=== PATIENT | female | born 1950 | race Caucasian/White ===

== ENCOUNTER 2019-08-20 09:48 | Inpatient (IN) | payer MEDICARE, MEDICAID, SELFPAY ==
[2019-08-20] VITALS (27 sets, daily range): BP systolic 94–167; BP diastolic 56–88; PULSE 90–125; RESP 15–25; TEMP 36.4–36.9; O2SAT 4–98; BMI 16.0
--- NOTE | 2019-08-20 09:50 | ED_ITS ---
Entered by Linn Chapin, acting as scribe for HPI - Chest Pain General: Chief Complaint: Chest Pain Stated Complaint: CHEST PAIN Time Seen by Provider: 08/20/19 09:51 Source: patient and EMS Mode of arrival: EMS History of Present Illness: HPI narrative: 69 yo female presents with shortness of breath and chest discomfort. pt has had a cough. pt states this started yesterday. pt states this started at rest. pt has a history of COPD and palpatations. pt denies any other symptoms at this time. Pertinent past history: other (copd) Onset (ago): day(s) (yesterday) Timing of current episode: constant Prior episodes: Yes Onset: during rest Severity: moderate Quality: tightness and sharp Relieving factors: nothing Exacerbating factors: other (cough) Associated symptoms: Reports dyspnea and other (shortness of breath); Deny abdominal pain, fever(s), nausea or vomiting Treatment prior to arrival: oxygen (EMS) Review of Systems Const: Denies: fever or chills Eyes: Denies: change in vision ENMT: Denies: throat pain or mouth pain Card: Reports: chest pain Resp: Reports: shortness of breath GI: Denies: abdominal pain, nausea, vomiting or diarrhea : Denies: difficulty urinating Musc: Denies: back pain or joint pain Skin/Breast: Denies: rash Neuro: Denies: headache or behavioral changes Psych: Denies: depression Endo: Denies: excessive urination Ronen/Lymph: Denies: easy bruising All/Imm: Denies: hives PFSH ED PFSH: Statuses (acute, chronic, etc) shown below reflect problem list status as previously entered and may not be historically accurate Medical History Acute on chronic respiratory failure with hypoxia and hypercapnia (Acute) COPD (chronic obstructive pulmonary disease) (Acute) Pseudomonas aeruginosa colonization (Acute) Pulmonary hypertension (Acute) Severe protein-calorie malnutrition (Acute) Surgical History History of back surgery (Acute) Family History Mother CAD (coronary artery disease) Social History Smoking and tobacco status: former smoker Alcohol intake: current Alcohol intake frequency: holidays/special occasions only Substance/Drug Use: never Physical Exam Const: COMMON NORMALS: no apparent distress and healthy appearing HENMT: COMMON NORMALS: normocephalic and external nose normal HEAD & SCALP: normocephalic NOSE: external nose normal and no nasal discharge (nasal dischage) Eye: COMMON NORMALS: PERRL PUPIL: Yes PERRL Neck/C-Spine: COMMON NORMALS: full ROM and no lymphadenopathy Chest: COMMONS NORMALS: inspection of chest normal Resp: COMMON NORMALS: normal respiratory effort OTHER: rales and wheezes noted Cardio: RATE: tachycardic RHYTHM: abnormal rhythm GI: COMMON NORMALS: soft to palpation PALPATION: Yes soft Extremity: COMMON NORMALS: normal to inspection, full ROM and normal capillary refill Psych: COMMON NORMALS: mental status grossly normal and cooperative Skin: COMMON NORMALS: no rashes or lesions noted GENERAL SKIN EXAM: no rashes or lesions noted Course Vital Signs: Vital signs: Vital Signs Temperature 97.9 F 08/20/19 09:53 Pulse Rate 100 08/20/19 11:47 Respiratory Rate 15 08/20/19 11:47 Blood Pressure 119/69 08/20/19 11:47 Pulse Oximetry 98 08/20/19 11:47 MDM - Chest Pain MDM Narrative: Medical decision making narrative: Patient presents here with shortness of breath and was found to have a left-sided pneumonia. Patient is requiring 4 L of oxygen here and is typically on 2. I spoke to hospitalist who is seen patient will admit. Patient started on azithromycin and Rocephin. Lab Data: Labs: Lab Results 08/20/19 08/20/19 08/20/19 Range/Units 09:37 09:37 09:37 WBC 16.1 H (4.0-10.0) 10^3/ uL RBC 4.10 (4.1-5.3) 10^6/u L Hgb 11.0 L (11.5-15.3) g/dL Hct 35.8 L (37.0-47.0) % MCV 87.3 (81-99) fL MCH 26.8 L (28.0-34.0) pg MCHC 30.7 (30.0-36.0) g/dL RDW 15.1 (12.1-15.1) % Plt Count 402 H (130-400) 10^3/c mm MPV 9.7 (7.4-10.4) fL Neut % (Auto) 78.6 % Lymph % (Auto) 8.8 % Delta % (Auto) 10.9 % Eos % (Auto) 0.9 % Baso % (Auto) 0.3 % Neut # (Auto) 12.7 H (1.8-7.7) 10^3/u L Lymph # (Auto) 1.4 (0.8-4.8) 10^3/u L Delta # (Auto) 1.8 H (0.2-0.9) 10^3/u L Eos # (Auto) 0.1 (0.0-0.8) 10^3/u L Baso # (Auto) 0.1 (0.0-0.1) 10^3/u L Nucleated RBC % (a uto) 0 % Nucleated RBCs # 0.0 /100WBC Sodium 138 (136-145) mmol/L Potassium 5.0 (3.5-5.1) mmol/L Chloride 99 (98-107) mmol/L Carbon Dioxide 27 (22-29) mmol/L Anion Gap 17.0 (5-19) BUN 16 (8-23) mg/dL Creatinine 0.3 L (0.5-0.9) mg/dL GFR Calculation 221.2 H (90-130) mL/min Glucose 118 H (74-106) mg/dL Calcium 10.2 (8.8-10.2) mg/Dl Total Bilirubin 0.3 (0.15-1.2) mg/dL AST 14 (0-32) U/L ALT 6 (0-33) U/L Alkaline Phosphata se 106 H (35-105) IU/L Troponin T Baselin e 32 H (0-10) ng/mL NT-Pro-B Natriuret Pep 253 H (0-125) pg/mL Total Protein 7.1 (6.6-8.7) g/dL Albumin 3.8 (3.5-5.2) g/dL Globulin 3.3 (1.3-4.6) g/dL EKG Data^: EKG 1: Attestation: I personally reviewed and interpreted this EKG as follows: EKG interpretation date: 08/20/19 EKG interpretation time: 10:56 Interpretation: A. fib with RVR heart rate [address] or T wave abnormalities QRS 84 QTC 354 Discharge Plan Discharge Patient Disposition: Admitted As Inpatient Admit Provider: Herbie Cifuentes Clinical Impression: Community acquired pneumonia Qualifiers: Laterality: left Lung location: unspecified part of lung Qualified Code(s): J18.9 - Pneumonia, unspecified organism Condition: Stable Referrals: Kahlil Joseph MD [Primary Care Provider] - Coding Level of Care Code ED Human Resources Specialist for Chg Fwd Exam Problem Focused The documentation recorded by the Tavares grimes Bridget Annette, accurately reflects the service I personally performed and the decisions made by me, Faiza Smallwood MD Aug 20, 2019 09:48
--- NOTE | 2019-08-20 09:53 | XRR_ITS ---
PROCEDURE INFORMATION: Exam: XR Chest, 1 View Exam date and time: 08/20/2019 9:54 AM Age: 69 years old Clinical indication: Cough; Additional info: Cough, ex-smoker TECHNIQUE: Imaging protocol: XR of the chest Views: 1 view. COMPARISON: CR Chest 1 [place] [id number] 06/28/2019 5:41 PM FINDINGS: Lungs: Interval appearance of moderate to severe left lung pneumonia superimposed on background left upper lung field scarring. Stable right upper and lower lung field scarring. Stable severe COPD . Pleural space: Unremarkable. No pleural effusion. No pneumothorax. Heart/Mediastinum: Unremarkable. No cardiomegaly. Vasculature: Calcification of the thoracic aorta and/or great vessels consistent with atherosclerotic vessel disease. Bones/joints: Stable multiple vertebroplasties in the thoracolumbar spine. XR/XR chest 1V portable [id number] IMPRESSION: Interval appearance of moderate to severe left lung pneumonia superimposed on background left upper lung field scarring.
--- NOTE | 2019-08-20 09:54 | ECG_ITS ---
Measurements Intervals [place] Rate: 105 P: 61 MD: 141 QRS: 78 QRSD: 101 T: 63 QT: 333 QTc: 441 SINUS TACHYCARDIA Compared to ECG 08/20/2019 11:47:58 Sinus rhythm no longer present Electronically Signed On 08-21-2019 5:55:52 RENTAL SALESPERSON by Varsha Hensley M.D. [id number]
[2019-08-20] MEDS: sodium chloride 0.9% 1,000 ML 999 ML IV (10:01)
[2019-08-20 10:17] LABS: Basophils # 0.1 10^3/uL (0.0-0.1); Basophils % 0.3 %; Eosinophils # 0.1 10^3/uL (0.0-0.8); Eosinophils % 0.9 %; Hematocrit 35.8 % (37.0-47.0); Lymphocytes # 1.4 10^3/uL (0.8-4.8); Lymphocytes % 8.8 %; Mean Corpuscular HGB Conc 30.7 g/dL (30.0-36.0); Mean Corpuscular Hemoglobin 26.8 pg (28.0-34.0); Mean Corpuscular Volume 87.3 fL (81-99); Mean Platelet Volume 9.7 fL (7.4-10.4); Monocytes # 1.8 10^3/uL (0.2-0.9); Monocytes % 10.9 %; Neutrophils # 12.7 10^3/uL (1.8-7.7); Neutrophils % 78.6 %; Nucleated Red Blood Cells % 0 %; Platelet Count 402 10^3/cmm (130-400); Red Cell Distribution Width 15.1 % (12.1-15.1); White Blood Count 16.1 10^3/uL (4.0-10.0)
--- NOTE | 2019-08-20 10:34 | PC.NURSE ---
Patient up to restroom with picking tech for urine collection.
[2019-08-20 10:42] LABS: Troponin(5th) Baseline 32 ng/mL (0-10)
--- NOTE | 2019-08-20 10:46 | PC.NURSE ---
Lab at bedside to collect blood culture. Will start antibiotic following collection.
[2019-08-20 10:51] LABS: Alanine Aminotransferase 6 U/L (0-33); Albumin Level 3.8 g/dL (3.5-5.2); Alkaline Phosphatase 106 IU/L (35-105); Blood Urea Nitrogen 16 mg/dL (8-23); Calcium 10.2 mg/Dl (8.8-10.2); Carbon Dioxide 27 mmol/L (22-29); Chloride 99 mmol/L (98-107); Globulin 3.3 g/dL (1.3-4.6); Glomerular Filtration Rate 221.2 mL/min (90-130); Glucose 118 mg/dL (74-106); NT Pro B Type Natriuretic Pept 253 pg/mL (0-125); Sodium 138 mmol/L (136-145); Total Bilirubin 0.3 mg/dL (0.15-1.2); Total Protein 7.1 g/dL (6.6-8.7)
[2019-08-20 11:02] LABS: Aspartate Amino Transferase 14 U/L (0-32)
[2019-08-20] MEDS: cefTRIAXone 1,000 MG in sodium chloride 0.9% (plus) 50 ML 100 MG IV (11:05)
[2019-08-20] MEDS: metoprolol tartrate 1 mg/1 mL SDV 5 mL 5 MG IV (11:32)
[2019-08-20] MEDS: azithromycin 500 MG in sodium chloride 0.9% 250 ML 250 MG IV (11:33)
--- NOTE | 2019-08-20 11:53 | P.HP_ITS ---
Providers/Chief Complaint Primary Care Provider: Say Joseph Chief Complaint: CHEST PAIN History of Present Illness Marie Hull is a 69 year old female with a past medical history of severe COPD with history of bullous emphysema 2 L oxygen dependent, on home trilogy machine who presents to the emergency room due to complaints of short worsening shortness of breath, productive cough, chest pain since . Patient stat es at baseline she is short of breath less than 100 feet, has severe COPD, uses trilogy machine overnight, 2 L oxygen dependent, has had multiple hospitalizations in the past year for COPD exacerbations. Previous sputum cultures have grown Pseudomonas, with intermediate sensitivity to Levaquin. Patient states that on night she developed shortness of breath at rest with exertion, productive cough, yellow-green sputum, chest palpitations and chest pain, her heart rate was in the high 150s. Patient states that she developed left-sided chest pain, like something sitting on her chest, radiating to the left breast, stated that it lasted a few minutes, no lightheadedness, no dizziness, no nausea, no vomiting, pleuritic in nature. Throughout the weekend she continued to have multiple episodes, yesterday she had chest pain throughout the day, did not lissa, worsening with deep breaths. Patient denies a history of CAD, denies a history of stents, denies history of heart failure, denies any history of atrial fibrillation. Denies sick contacts. Denies any recent travel. Does report some URI symptoms for the last few days. In the emergency room patient was found to have a leukocytosis of 16,000, neutrophilia, saturating high 90s on 4 L oxygen, heart rates 120s, atrial fibrillation. She received Rocephin, azithromycin, Solu-Medrol. Review of Systems Const: Reports: chills; Denies: fever, change in appetite, change in weight, fatigue or malaise ENMT: Denies: painful swallowing, ear discharge or nasal discharge Card: Reports: chest pain, palpitations, irregular heart rhythm, shortness of breath on exertion and shortness of breath when lying down; Denies: edema, lightheadedness, syncope or pre-syncope Resp: Reports: shortness of breath, productive cough and chest congestion; Denies: coughing up blood GI: Denies: abdominal pain, nausea or vomiting : Denies: flank pain, difficulty urinating, painful urination, urinary frequency, urinary urgency or urinary hesitancy Musc: Denies: neck pain, back pain or extremity swelling Skin/Breast: Denies: rash Neuro: Denies: headache or weakness in extremities Endo: Denies: excessive urination, excessive thirst or excessive sweating Ronen/Lymph: Denies: easy bruising Medications/Allergies Home Medications Medication Instructions Recorded Confirmed Last Taken Type albuterol sulfate [Ventolin HFA] 1 puff INHALATION TID PRN 08/20/19 08/20/19 Unknown History aspirin 81 mg PO DAILY 08/20/19 08/20/19 08/20/19 History celecoxib 200 mg PO BID 08/20/19 08/20/19 08/20/19 History fluticasone propion-salmeterol 1 inh INHALATION BID 08/20/19 08/20/19 08/20/19 History [Advair Diskus] fluticasone propionate 2 spray INTRANASAL DAILY 08/20/19 08/20/19 08/20/19 History levocetirizine 5 mg PO DAILY 08/20/19 08/20/19 08/20/19 History tiotropium bromide [Spiriva with 1 cap INHALATION DAILY 08/20/19 08/20/19 08/20/19 History HandiHaler] Allergies Allergy/AdvReac Type Severity Reaction Status Date / Time levofloxacin [From Levaquin] Allergy Unknown Verified 08/20/19 10:00 PFSH Acute PFSH: Statuses (acute, chronic, etc) shown below reflect problem list status as previously entered and may not be historically accurate Medical History (Updated 08/20/19 @ 12:11 by Herbie Cifuentes MD) Acute on chronic respiratory failure with hypoxia and hypercapnia (Acute) COPD (chronic obstructive pulmonary disease) (Acute) Pseudomonas aeruginosa colonization (Acute) Pulmonary hypertension (Acute) Severe protein-calorie malnutrition (Acute) Surgical History (Updated 08/20/19 @ 12:02 by Herbie Cifuentes MD) History of back surgery (Acute) Family History (Updated 08/20/19 @ 12:02 by Herbie Cifuentes MD) Mother CAD (coronary artery disease) Social History (Updated 08/20/19 @ 12:02 by Herbie Cifuentes MD) Smoking and tobacco status: former smoker Alcohol intake: current Alcohol intake frequency: holidays/special occasions only Substance/Drug Use: never Vitals/I&O/Wt Last Vital Signs Temp 97.9 F 08/20/19 09:53 Pulse 100 08/20/19 11:47 Resp 15 08/20/19 11:47 BP 119/69 08/20/19 11:47 Pulse Ox 98 08/20/19 11:47 08/19/19 08/20/19 08/20/19 22:59 06:59 14:59 Intake Total 1000 / 1000 Balance 1000 / 1000 Weight last 48 hrs Weight 39.916 kg Physical Exam Const: COMMON NORMALS: no apparent distress GENERAL APPEARANCE: cooperative, comfortable, well kempt and well developed NUTRITIONAL APPEARANCE: cachectic HENMT: COMMON NORMALS: normocephalic Eye: COMMON NORMALS: PERRL, EOMs intact bilaterally and no scleral icterus Neck/C-Spine: COMMON NORMALS: full ROM, no lymphadenopathy, supple and no JVD Lymph: LYMPHATIC: no lymphadenopathy noted Chest: COMMONS NORMALS: inspection of chest normal Resp: COMMON NORMALS: normal respiratory effort EFFORT & INSPECTION: Yes able to speak in complete sentences, Yes tachypneic, Yes actively coughing and Yes uses accessory muscles AUSCULTATION: rales on the left in the mid lung marquis and in the upper lung marquis and rhonchi left upper Cardio: COMMON NORMALS: no JVD, S1 normal heart sound and S2 normal heart sound RATE: tachycardic RHYTHM: abnormal rhythm irregularly irregular GI: COMMON NORMALS: normal to inspection, nondistended, normoactive bowel sounds, soft to palpation, non-tender and no hepatosplenomegaly : COMMON NORMALS: Yes no CVA tenderness Back/Pelvis: COMMON NORMALS: thoracic and lumbar spine normal to inspection Extremity: COMMON NORMALS: normal capillary refill, no clubbing, cyanosis or edema and no pedal edema Neuro: COMMON NORMALS: oriented x3, CN's II-XII intact bilaterally, moves all extremities and no focal motor deficits Psych: COMMON NORMALS: mental status grossly normal and cooperative Skin: COMMON NORMALS: no rashes or lesions noted Data Micro: Micro: Microbiology 08/20/19 10:53 Blood Culture - Pr eliminary Blood SPECIMEN [facility] 08/20/19 10:47 Blood Culture - Pr eliminary Blood SPECIMEN [facility] Imaging^: CXR: Radiologist's impression: moderate to severe left lung pneumonia superimposed on background left upper lung field scarring. EKG^: EKG 1: I personally reviewed and interpreted this EKG as follows: My Interpretation: A. fib with RVR, heart rates in the 120s A&P Assessment and plan (1) Acute on chronic respiratory failure with hypoxia and hypercapnia: -Has risk factors for healthcare associated morning, has had multiple admissions in the last year for respiratory failure pneumonia -Neutrophilic leukocytosis on admission white blood cell count as high as 16,000, up to 4 L and oxygen, heart rate 120s, chest x-ray showing left upper and middle lobe pneumonia -On exam is a bit tachypneic, using a respiratory muscles -Likely secondary to left upper and middle lobe pneumonia, COPD exacerbation, A. fib with RVR Plan: -Broad-spectrum antibiotics vancomycin and Zosyn -Solu-Medrol 40 mg every 8 hours starting tomorrow -LR hydration -DuoNeb treatment -Patient was advised to bring her home trilogy, if not will use BiPAP overnight -Oxygen therapy protocol -Patient is okay with elective intubation if required Status: Acute Code(s): J96.21 - Acute and chronic respiratory failure with hypoxia; J96.22 - Acute and chronic respiratory failure with hypercapnia (2) Pseudomonas aeruginosa colonization: Status: Acute Code(s): Z22.39 - Carrier of other specified bacterial diseases (3) Severe chronic obstructive pulmonary disease: Status: Acute Code(s): J44.9 - Chronic obstructive pulmonary disease, unspecified (4) Healthcare-associated pneumonia: Status: Acute Code(s): J18.9 - Pneumonia, unspecified organism (5) New onset atrial fibrillation: -In the ER she was given 5 mg labetalol, heart rate came down to the low 100s, A. fib, did not convert Plan: -Continue serial EKGs, monitor troponins -Cardiac echocardiogram -Metoprolol 25 mg twice daily -Eliquis 5 mg twice daily Status: Acute Code(s): I48.91 - Unspecified atrial fibrillation (6) Pulmonary hypertension: Status: Acute Code(s): I27.20 - Pulmonary hypertension, unspecified (7) Severe protein-calorie malnutrition: Status: Acute Code(s): E43 - Unspecified severe protein-calorie malnutrition (8) NSTEMI (non-ST elevated myocardial infarction): -Likely type II, supply demand ischemia from respiratory failure -No acute ST-T wave changes seen on EKG Plan: -Aspirin, statin -Trend troponins -Continue telemetry monitoring -Serial EKGs -Cardiac echocardiogram -Nitro PRN Status: Acute Code(s): I21.4 - Non-ST elevation (NSTEMI) myocardial infarction Attestations Medical Necessity Statement*: Patient requires hospitalization, inpatient care, greater than 2 midnights for acute respiratory failure Coding Level of Care Code Acute Wood Heel Back Liner for Chg 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
--- NOTE | 2019-08-20 11:54 | ECG_ITS ---
Measurements Intervals [place] Rate: 99 P: 63 NC: 147 QRS: 81 QRSD: 88 T: 66 QT: 332 QTc: 428 SINUS RHYTHM WITH OCCASIONAL SUPRAVENTRICULAR PREMATURE COMPLEXES Compared to ECG 08/20/2019 09:54:34 Atrial fibrillation no longer present Electronically Signed On 08-20-2019 13:29:19 BUTTON BREAKER by Varsha Hensley M.D. [id number]
[2019-08-20 12:12] LABS: Troponin 5 2HR 27.43 ng/mL (0-10)
[2019-08-20 12:52] LABS: Troponin 5 2HR Delta -4.57 ABS# (0-10)
[2019-08-20] MEDS: atorvastatin 40 mg Tablet PO (15:10)
[2019-08-20 15:52] LABS: Troponin 5 6HR 21.78 ng/L (0-10)
--- NOTE | 2019-08-20 15:54 | ECG_ITS ---
Measurements Intervals [place] Rate: 126 P: MD: 0 QRS: 89 QRSD: 84 T: 65 QT: 280 QTc: 405 ATRIAL FIBRILLATION WITH RAPID VENTRICULAR RESPONSE ABNORMAL RHYTHM ECG Compared to ECG 06/28/2019 20:44:39 Sinus tachycardia no longer present Myocardial infarct finding no longer present Electronically Signed On 08-20-2019 11:20:31 BELT BRANDER by Varsha Hensley M.D. [id number]
[2019-08-20] MEDS: vancomycin 750 MG in sodium chloride 0.9% 250 ML 250 MG IV (16:09)
[2019-08-20] MEDS: lactated ringers 1,000 ML 75 ML IV (16:10)
[2019-08-20] MEDS: ipratropium-albuterol 3 mL Neb INHALATION ×3 (16:32→23:36)
[2019-08-20] MEDS: metoprolol tartrate 25 mg Tablet PO (17:47)
[2019-08-20] MEDS: apixaban 5 mg Tablet PO (17:48)
[2019-08-20] MEDS: piperacillin-tazobactam 2.25 GM in sodium chloride 0.9% (plus) 50 ML IV ×2 (18:28→22:45)
[2019-08-20 19:59] LABS: Troponin 5 6HR Delta -5.65 ng/L (0-12)
--- NOTE | 2019-08-20 20:46 | PC.NURSE ---
Dr. Craven notified of patient asking for Mucinex.
--- NOTE | 2019-08-20 21:26 | PC.NURSE ---
1300- FROM ER Received pt from Er. Dgtr in law at bedside. Oriented pt to staff. Physical and admission assessment taken. Pt on 3 L/min NC. VS wnl. Call light within reach.
[2019-08-20] MEDS: guaiFENesin 600 mg Tablet PO (22:04)
[2019-08-21] VITALS (17 sets, daily range): BP systolic 97–113; BP diastolic 53–61; PULSE 93–109; RESP 16–24; TEMP 36.4–37.1; O2SAT 90–97
[2019-08-21] MEDS: vancomycin 750 MG in sodium chloride 0.9% 250 ML 250 MG IV ×2 (03:03→13:53)
[2019-08-21] MEDS: ipratropium-albuterol 3 mL Neb INHALATION ×7 (03:10→23:46)
[2019-08-21 04:56] LABS: Basophils % 0.1 %; Hematocrit 30.2 % (37.0-47.0); Hemoglobin 9.1 g/dL (11.5-15.3); Lymphocytes # 0.7 10^3/uL (0.8-4.8); Lymphocytes % 7.8 %; Mean Corpuscular HGB Conc 30.1 g/dL (30.0-36.0); Mean Corpuscular Hemoglobin 26.5 pg (28.0-34.0); Mean Corpuscular Volume 87.8 fL (81-99); Mean Platelet Volume 9.5 fL (7.4-10.4); Monocytes # 0.3 10^3/uL (0.2-0.9); Monocytes % 3.4 %; Neutrophils # 7.9 10^3/uL (1.8-7.7); Neutrophils % 88.3 %; Nucleated Red Blood Cells % 0 %; Platelet Count 386 10^3/cmm (130-400); Red Blood Count 3.44 10^6/uL (4.1-5.3); Red Cell Distribution Width 15.3 % (12.1-15.1); White Blood Count 8.9 10^3/uL (4.0-10.0)
[2019-08-21 05:27] LABS: Alanine Aminotransferase < 5 U/L (0-33); Alkaline Phosphatase 92 IU/L (35-105); Anion Gap 12.2 (5-19); Aspartate Amino Transferase 11 U/L (0-32); Blood Urea Nitrogen 16 mg/dL (8-23); Calcium 9.3 mg/Dl (8.8-10.2); Carbon Dioxide 29 mmol/L (22-29); Chloride 103 mmol/L (98-107); Chol HDL Ratio 4.46 mg/dL (0.0-4.40); Cholesterol 107 mg/dL (0-200); Globulin 3.8 g/dL (1.3-4.6); Glomerular Filtration Rate 158.7 mL/min (90-130); Glucose 160 mg/dL (74-106); HDL Cholesterol 24 mg/dL (60-100); LDL Cholesterol Calculated 72 mg/dL (50-129); Magnesium 2.4 mg/dL (1.7-2.3); Phosphorus 3.7 mg/dL (2.5-4.5); Potassium 4.2 mmol/L (3.5-5.1); Sodium 140 mmol/L (136-145); Thyroid Stimulating Hormone 0.26 uIU/mL (0.27-4.20); Total Bilirubin 0.2 mg/dL (0.15-1.2); Total Protein 6.8 g/dL (6.6-8.7); Triglycerides 55 mg/dL (0-150)
--- NOTE | 2019-08-21 06:00 | USCV_ITS ---
Kurtis Marie Age: 69 Gender: F : 1950 Exam Date: 08/21/2019 05:41 Ordering Phys: Herbie Cifuentes MD Technologist: Yuki Godinez Exam Location: [facility] Indication: CHEST PAIN BP: 90 / 57 HR: 97 Rhythm: Sinus Technical Quality: Adequate MEASUREMENTS (Male / Female) Normal Values 2D ECHO LV Diastolic Diameter PLAX 3.5 cm 4.2 - 5.9 / 3.9 - 5.3 cm LV Systolic Diameter PLAX 2.2 cm LV Chamber Size 3.1 cm IVS Diastolic Thickness 1.2 cm 0.6 - 1.0 / 0.6 - 0.9 cm IVS Systolic Thickness 1.2 cm LVPW Diastolic Thickness 1.0 cm 0.6 - 1.0 / 0.6 - 0.9 cm LVPW Systolic Thickness 0.9 cm RV Chamber Size 3.0 cm LVOT Diameter 2.0 cm LV Ejection Fraction 2D Teich 70.1 % LV Ejection Fraction MOD 2C 23.4 % LV Ejection Fraction 2C AL 22.9 % LA Diameter 2.2 cm LA Width 1.7 cm LA Height 2.6 cm RA Width 3.0 cm RA Height 2.5 cm Aorta at Sinotubular Diameter 3.2 cm M-MODE LV Diastolic Diameter MM 5.5 cm 4.2 - 5.9 / 3.9 - 5.3 cm LV Systolic Diameter MM 3.2 cm LV Ejection Fraction MM Teich 72.5 % IVS Diastolic Thickness MM 1.0 cm 0.6 - 1.0 / 0.6 - 0.9 cm IVS Systolic Thickness MM 1.8 cm LVPW Diastolic Thickness MM 1.0 cm 0.6 - 1.0 / 0.6 - 0.9 cm LVPW Systolic Thickness MM 1.4 cm RV Diastolic Diameter MM 0.8 cm Aortic Annulus Diameter 4.0 cm LA Ao Ratio MM 0.6 MV E Point Septal Separation 0.1 cm DOPPLER AV Peak Velocity 156.0 cm/s LVOT Peak Velocity 101.0 cm/s AV Area Cont Eq vti 2.4 cm squared AV Area Cont Eq pk 2.1 cm squared MV Area PHT 7.9 cm squared Mitral E to A Ratio 0.7 MV E' Velocity 11.0 cm/s Mitral E to MV E' Ratio 7.1 Mitral E to LV E' Lateral Ratio 8.0 Mitral E to LV E' Septal Ratio 6.4 TR Peak Velocity 292.1 cm/s TR Peak Gradient 34.1 mmHg TR Mean Velocity 221.9 cm/s TR Mean Gradient 21.5 mmHg TR Velocity Time Integral 96.2 cm TV Peak E Velocity 86.0 cm/s Right Atrial Pressure 3.0 mmHg Pulmonary Artery Systolic Pressu 37.1 mmHg PV Peak Velocity 54.0 cm/s RV Acceleration Time 0.1 s RV Ejection Time 0.3 s RV AcT/ET 0.5 FINDINGS Left Ventricle Normal left ventricular cavity size. Normal left ventricular systolic function. No regional wall motion abnormalities. Left ventricular ejection fraction is estimated at 65 %. Grade I/IV diastolic dysfunction (abnormal relaxation filling pattern), normal to mildly elevated filling pressures. Right Ventricle The right ventricle is normal in size and function. Right Atrium The right atrium is normal in size. Left Atrium The left atrium is normal in size. Mitral Valve Structurally normal mitral valve without significant stenosis or prolapse. There is no mitral regurgitation. Aortic Valve Aortic valve sclerosis. No aortic valve stenosis. No aortic valve regurgitation. Tricuspid Valve Structurally normal tricuspid valve without significant stenosis or regurgitation. Pulmonary artery systolic pressure is normal. Pulmonic Valve Structurally normal pulmonic valve without significant stenosis. There is no pulmonic regurgitation. Pericardium Normal pericardium without effusion. Aorta Normal ascending aorta dimension. CONCLUSIONS 1-Normal left ventricular cavity size. Normal left ventricular systolic function. No regional wall motion abnormalities. Left ventricular ejection fraction is estimated at 65 %. Grade I/IV diastolic dysfunction (abnormal relaxation filling pattern), normal to mildly elevated filling pressures. 2-Aortic valve sclerosis. No aortic valve stenosis. No aortic valve regurgitation. 3-There is no pericardial effusion. 4-Pulmonary artery systolic pressure is within normal limits. 5-Right atrial pressure is around 5 mm of mercury. 6-When compared to the prior echocardiogram dated 12/19/2014 there is no aortic valve stenosis now. Overall left ventricular ejection fraction stays normal. Guilherme Ibrahim MD (Electronically Signed) Final Date: 21 August 2019 12:59 S
[2019-08-21 07:14] LABS: Procalcitonin 0.11 ng/mL (0-0.8)
[2019-08-21] MEDS: piperacillin-tazobactam 2.25 GM in sodium chloride 0.9% (plus) 50 ML IV ×3 (07:58→23:08)
[2019-08-21] MEDS: guaiFENesin 600 mg Tablet PO ×2 (09:52→18:41)
[2019-08-21] MEDS: atorvastatin 40 mg Tablet PO (09:53)
[2019-08-21] MEDS: apixaban 5 mg Tablet PO ×2 (09:54→18:41)
[2019-08-21] MEDS: aspirin 81 mg Chew Tablet PO (09:55)
[2019-08-21] MEDS: metoprolol tartrate 25 mg Tablet PO ×2 (10:02→18:41)
--- NOTE | 2019-08-21 10:27 | CT_ITS ---
WS: [id number] CT CHEST TECHNIQUE: Contrast enhanced CT of the chest with coronal and sagittal reformatted images. CLINICAL INFORMATION: sob COMPARISON: [id number] DLP: 285.[address] scans at [facility] use at least one of these dose optimization techniques: automat ed exposure control; mA and/or kV adjustment per patient size (includes targeted exams where dose is matched to clinical indication); or iterative reconstruction. FINDINGS: Advanced chronic emphysematous changes with bullous formation in the lung apices. Extensive pleural-p arenchymal scarring with more focal and progressed parenchymal and pleural fibrosis in the left upper lobe. Small amount of central cavitation in this area measuring 1.9 CM. Total area of parenchymal co nsolidation measures 4.5 x 3.3 cm progressed from previous. Some of this is due to chronic scarring b ut has progressed from previous. Recommend correlation for fungal pneumonia/aspergilloma considering the area of cavitation. Small left pleural effusion slightly progressed from previous with interstitial edema in the left low er lobe and lingula. Small right pleural effusion is stable. Stable pleural and parenchymal fibrosis in the right upper lobe. Aortic calcification. Coronary calcification. No mediastinal or hilar lymphadenopathy. Calcified righ t hilar nodes. Adrenal glands are normal. Small esophageal hiatal hernia. Mild thoracic kyphosis with vertebroplasty changes and chronic compression in the mid and lower thoracic spine unchanged. Chronic compression o f the T6 vertebral body unchanged. CT/CT chest w con* [id number] IMPRESSION: 1. Again seen is advanced centrilobular bullous emphysematous change. 2. Small pleural effusion has progressed compared to previous with interstitia l edema and compressive atelectasis left lower lobe. Correlation for left lower lobe pneumonia. 3. Progressed pleural and parenchymal fibrosis in the left upper lobe and ramona cent left hilum with a small amount of central cavitation in this area. Area of cavitation measures 1.9 CCM. Recommend correlation for aspergilloma/fungal pne umonia. 4. Small right pleural effusion is unchanged. 5. No other significant interval changes.
--- NOTE | 2019-08-21 12:38 | PC.RESP ---
Patient is actively attending Pulmonary Rehab under Phase 3 maintenance for life. Pt was given an Acapella and an Incentive Spirometer under Pulmonary Rehab and instructed in proper use to improve secretion mobilization and deep breathing.
[2019-08-21] MEDS: iohexol 300 mg/mL 100 mL Btl IV (13:36)
--- NOTE | 2019-08-21 14:32 | PC.PT ---
PT/OT report she is independent with transfers and gait short distances. Pt feels that she is at previous functional level. No physical therapy required at this time. Reviewed HEP. DCPT
[2019-08-21 14:56] LABS: Vancomycin Trough 7.7 ug/mL (10-15)
--- NOTE | 2019-08-21 15:54 | P.PN_ITS ---
Subjective Subjective: Interval history: This morning, patient is sitting up in bed, family at bedside, denies chest pain, palpitations, lightheadedness, dizziness, no nausea, no vomiting, continues to have productive cough Vitals/I&O/Wt Last Vital Signs Temp 98.7 F 08/21/19 12:00 Pulse 108 H 08/21/19 13:00 Resp 16 08/21/19 12:50 BP 108/58 08/21/19 12:00 Pulse Ox 96 08/21/19 12:50 08/21/19 08/21/19 08/21/19 06:59 14:59 22:59 Intake Total 600 / 2075 410 / 410 Output Total 800 / 800 Balance -200 / 1275 410 / 410 Weight last 48 hrs Weight 43.091 kg Weight 39.916 kg Physical Exam Const: COMMON NORMALS: no apparent distress and oriented x3 GENERAL APPEARANCE: cooperative, comfortable, well kempt and well developed NUTRITIONAL APPEARANCE: cachectic HENMT: COMMON NORMALS: normocephalic HEAD & SCALP: normocephalic Neck/C-Spine: COMMON NORMALS: no JVD Lymph: LYMPHATIC: no lymphadenopathy noted Chest: COMMONS NORMALS: inspection of chest normal Resp: COMMON NORMALS: normal respiratory effort EFFORT & INSPECTION: Yes able to speak in complete sentences, Yes tachypneic, Yes actively coughing and Yes uses accessory muscles AUSCULTATION: rales on the left in the mid lung marquis and in the upper lung marquis and rhonchi left upper Cardio: COMMON NORMALS: no JVD, S1 normal heart sound and S2 normal heart sound RATE: tachycardic RHYTHM: abnormal rhythm irregularly irregular HEART SOUNDS: S1 normal and S2 normal GI: COMMON NORMALS: normal to inspection, nondistended, normoactive bowel sounds, soft to palpation, non-tender and no hepatosplenomegaly PALPATION: Yes soft and Yes no hepatosplenomegaly Neuro: COMMON NORMALS: oriented x3 Psych: APPEARANCE: Yes well kempt Data Micro: Micro: Microbiology 08/20/19 10:53 Blood Culture - Pr eliminary Blood NEGATIVE TO WADE E 08/20/19 10:47 Blood Culture - Pr eliminary Blood NEGATIVE TO WADE E 08/19/19 13:00 Gram Stain - Final Sputum - Expector ated Sputum Sputum Culture - P reliminary A&P Assessment and plan (1) Acute on chronic respiratory failure with hypoxia and hypercapnia: -Has risk factors for healthcare associated morning, has had multiple admissions in the last year for respiratory failure pneumonia -Likely secondary to left upper and middle lobe pneumonia, COPD exacerbation, A. fib with RVR Plan: -Broad-spectrum antibiotics vancomycin and Zosyn for now, de-escalate based on MRSA nares -Solu-Medrol 40 mg every 8 hours -DuoNeb treatment -Patient was advised to bring her home trilogy, if not will use BiPAP overnight -Oxygen therapy protocol -Patient is okay with elective intubation if required Status: Acute Code(s): J96.21 - Acute and chronic respiratory failure with hypoxia; J96.22 - Acute and chronic respiratory failure with hypercapnia (2) Pseudomonas aeruginosa colonization: Status: Acute Code(s): Z22.39 - Carrier of other specified bacterial diseases (3) Severe chronic obstructive pulmonary disease: Status: Acute Code(s): J44.9 - Chronic obstructive pulmonary disease, unspecified (4) Healthcare-associated pneumonia: Status: Acute Code(s): J18.9 - Pneumonia, unspecified organism (5) New onset atrial fibrillation: -In the ER she was given 5 mg labetalol, heart rate came down to the low 100s, A. fib, did not convert Plan: -Continue serial EKGs, monitor troponins -Cardiac echocardiogram -Metoprolol 25 mg twice daily -Eliquis 5 mg twice daily Status: Acute Code(s): I48.91 - Unspecified atrial fibrillation (6) Pulmonary hypertension: Status: Acute Code(s): I27.20 - Pulmonary hypertension, unspecified (7) Severe protein-calorie malnutrition: Status: Acute Code(s): E43 - Unspecified severe protein-calorie malnutrition (8) NSTEMI (non-ST elevated myocardial infarction): -Likely type II, supply demand ischemia from respiratory failure -No acute ST-T wave changes seen on EKG Plan: -Aspirin, statin -Continue telemetry monitoring -Cardiac echocardiogram ejection fraction 65%, diastolic dysfunction -Nitro PRN Status: Acute Code(s): I21.4 - Non-ST elevation (NSTEMI) myocardial infarction Attestations Medical Necessity Statement*: Patient requires continued hospitalization, for pneumonia and respiratory failure Coding Level of Care Code Acute Repairer [employer] for g 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
[2019-08-22] VITALS (16 sets, daily range): BP systolic 114–128; BP diastolic 58–69; PULSE 89–100; RESP 16–26; TEMP 36.3–36.9; O2SAT 91–98
--- NOTE | 2019-08-22 01:39 | PC.PHAR ---
Vancomycin trough level before third dose of 750mg IVPB every 12 hours is 7.7. Dosage is increased to 1gm IVPB every 12 hours with another trough level to be obtained before the third dose at this level.
[2019-08-22 03:15] LABS: Hemoglobin 8.3 g/dL (11.5-15.3); Lymphocytes # 0.7 10^3/uL (0.8-4.8); Nucleated Red Blood Cells % 0 %
[2019-08-22 03:23] LABS: Hematocrit 27.9 % (37.0-47.0); Lymphocytes % 7.6 %; Mean Corpuscular HGB Conc 29.7 g/dL (30.0-36.0); Mean Corpuscular Hemoglobin 26.7 pg (28.0-34.0); Mean Corpuscular Volume 89.7 fL (81-99); Mean Platelet Volume 9.6 fL (7.4-10.4); Monocytes # 0.4 10^3/uL (0.2-0.9); Neutrophils # 7.6 10^3/uL (1.8-7.7); Neutrophils % 86.8 %; Platelet Count 407 10^3/cmm (130-400); Red Blood Count 3.11 10^6/uL (4.1-5.3); Red Cell Distribution Width 15.4 % (12.1-15.1); White Blood Count 8.8 10^3/uL (4.0-10.0)
[2019-08-22] MEDS: ipratropium-albuterol 3 mL Neb INHALATION ×5 (03:40→20:54)
[2019-08-22 03:44] LABS: Alanine Aminotransferase < 5 U/L (0-33); Albumin Level 2.8 g/dL (3.5-5.2); Alkaline Phosphatase 65 IU/L (35-105); Anion Gap 11.9 (5-19); Aspartate Amino Transferase 13 U/L (0-32); Blood Urea Nitrogen 16 mg/dL (8-23); Calcium 9.6 mg/Dl (8.8-10.2); Carbon Dioxide 30 mmol/L (22-29); Chloride 103 mmol/L (98-107); Glomerular Filtration Rate 158.7 mL/min (90-130); Glucose 173 mg/dL (74-106); Magnesium 2.2 mg/dL (1.7-2.3); Phosphorus 2.3 mg/dL (2.5-4.5); Potassium 4.9 mmol/L (3.5-5.1); Sodium 140 mmol/L (136-145); Total Bilirubin 0.2 mg/dL (0.15-1.2); Total Protein 5.8 g/dL (6.6-8.7)
[2019-08-22] MEDS: piperacillin-tazobactam 2.25 GM in sodium chloride 0.9% (plus) 50 ML IV ×3 (06:05→23:43)
[2019-08-22] MEDS: metoprolol tartrate 25 mg Tablet PO ×2 (09:10→17:27)
[2019-08-22] MEDS: guaiFENesin 600 mg Tablet PO ×2 (09:10→17:27)
[2019-08-22] MEDS: atorvastatin 40 mg Tablet PO (09:11)
[2019-08-22] MEDS: acetaminophen 325 mg Tablet 650 MG PO (10:00)
[2019-08-22 12:33] LABS: Hematocrit 28.8 % (37.0-47.0); Hemoglobin 8.7 g/dL (11.5-15.3)
--- NOTE | 2019-08-22 14:17 | P.PN_ITS ---
Subjective Subjective: Interval history: this morning patient is lying in bed, is doing well, her breathing has improved, denies chest pain, denies palpitations, denies bloody stools Today patient's hemoglobin is 8.7, it has decreased, given her drop in hemoglobin will hold aspirin and Eliquis, advised the risk and benefits, risk of stroke versus risk of GI bleed, patient voiced understanding, agrees to hold Review of patient's CT scan with patient showed possible Progressed pleural and parenchymal fibrosis in the left upper lobe and adjacent left hilum with a small amount of central cavitation in this area. Area of cavitation measures 1.9 CCM. Recommend correlation for aspergilloma/fungal pneumonia. I spoke to Dr. Negron about the imaging findings, he is really concerned for the possibility of pulmonary malignancy, given increased in size since imaging in May. I had a discussion with the patient about imaging results, currently is a very high risk for biopsy given her bullous emphysema, will have Dr. Negron discuss with her the options, follow-up with oncology as outpatient Vitals/I&O/Wt Last Vital Signs Temp 98.2 F 08/22/19 07:53 Pulse 94 08/22/19 13:04 Resp 16 08/22/19 12:58 BP 121/60 08/22/19 11:43 Pulse Ox 94 08/22/19 12:58 08/21/19 08/22/19 08/22/19 22:59 06:59 14:59 Intake Total 1020 / 1430 250 / 1680 530 / 530 Balance 1020 / 1430 250 / 1680 530 / 530 Weight last 48 hrs Weight 42.728 kg Weight 43.091 kg Physical Exam Const: COMMON NORMALS: no apparent distress and oriented x3 GENERAL APPEARANCE: cooperative, comfortable, well kempt and well developed NUTRITIONAL APPEARANCE: cachectic Neck/C-Spine: COMMON NORMALS: no JVD Resp: COMMON NORMALS: normal respiratory effort EFFORT & INSPECTION: Yes able to speak in complete sentences, Yes tachypneic, Yes actively coughing and Yes uses accessory muscles AUSCULTATION: rales on the left in the mid lung marquis and in the upper lung marquis and rhonchi left upper Cardio: COMMON NORMALS: no JVD, S1 normal heart sound and S2 normal heart sound RATE: tachycardic RHYTHM: abnormal rhythm irregularly irregular HEART SOUNDS: S1 normal and S2 normal GI: COMMON NORMALS: normal to inspection, nondistended, normoactive bowel sounds, soft to palpation, non-tender and no hepatosplenomegaly PALPATION: Yes soft and Yes no hepatosplenomegaly Extremity: COMMON NORMALS: normal capillary refill, no clubbing, cyanosis or edema and no pedal edema Neuro: COMMON NORMALS: oriented x3 Psych: APPEARANCE: Yes well kempt Data Micro: Micro: Microbiology 08/22/19 10:09 MRSA Culture - Fin al Nose 08/19/19 13:00 Gram Stain - Final Sputum - Expector ated Sputum Sputum Culture - F inal 08/22/19 06:05 Bacterial Antigens - Final Urine,Clean Catch 08/20/19 10:53 Blood Culture - Pr eliminary Blood NEGATIVE TO WADE E 08/20/19 10:47 Blood Culture - Pr eliminary Blood NEGATIVE TO WADE E A&P Assessment and plan (1) Acute on chronic respiratory failure with hypoxia and hypercapnia: -Has risk factors for healthcare associated morning, has had multiple admi ssions in the last year for respiratory failure pneumonia -Likely secondary to left upper and middle lobe pneumonia, COPD exacerbation, A. fib with RVR Plan: -Broad-spectrum antibiotics vancomycin and Zosyn for now, de-escalate based on MRSA nares -Solu-Medrol 40 mg every 12 hours -DuoNeb treatment -Continue home trilogy -Oxygen therapy protocol -Patient is okay with elective intubation if required -CT scans showing central cavitation in the left upper lobe, findings concerning for possible pulmonary malignancy, will have Dr. Negron to help me in the discussion with family Status: Acute Code(s): J96.21 - Acute and chronic respiratory failure with hypoxia; J96.22 - Acute and chronic respiratory failure with hypercapnia (2) Pseudomonas aeruginosa colonization: Status: Acute Code(s): Z22.39 - Carrier of other specified bacterial diseases (3) Severe chronic obstructive pulmonary disease: Status: Acute Code(s): J44.9 - Chronic obstructive pulmonary disease, unspecified (4) Healthcare-associated pneumonia: Status: Acute Code(s): J18.9 - Pneumonia, unspecified organism (5) New onset atrial fibrillation: -In the ER she was given 5 mg labetalol, heart rate came down to the low 100s, A. fib -Patient has converted to normal sinus rhythm Plan: -Cardiac echocardiogram, ejection fraction 65%, no wall motion abnormalities -Metoprolol 25 mg twice daily -Hold Eliquis 5 mg twice daily Status: Acute Code(s): I48.91 - Unspecified atrial fibrillation (6) Pulmonary hypertension: Status: Acute Code(s): I27.20 - Pulmonary hypertension, unspecified (7) Severe protein-calorie malnutrition: Status: Acute Code(s): E43 - Unspecified severe protein-calorie malnutrition (8) NSTEMI (non-ST elevated myocardial infarction): -Likely type II, supply demand ischemia from respiratory failure -No acute ST-T wave changes seen on EKG Plan: -Hold aspirin, statin -Continue telemetry monitoring -Cardiac echocardiogram ejection fraction 65%, diastolic dysfunction -Nitro PRN Status: Acute Code(s): I21.4 - Non-ST elevation (NSTEMI) myocardial infarction Attestations Medical Necessity Statement*: Patient requires hospitalization, for respiratory failure Coding Level of Care Code 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
[2019-08-22] MEDS: vancomycin 750 MG in sodium chloride 0.9% 250 ML 250 MG IV (15:55)
[2019-08-22 20:02] LABS: Hematocrit 28.7 % (37.0-47.0); Hemoglobin 8.6 g/dL (11.5-15.3)
[2019-08-23] VITALS (19 sets, daily range): BP systolic 122–141; BP diastolic 60–79; PULSE 80–112; RESP 18–23; TEMP 36.1–36.9; O2SAT 88–97
[2019-08-23] MEDS: ipratropium-albuterol 3 mL Neb INHALATION ×6 (00:59→20:27)
[2019-08-23 05:20] LABS: Hematocrit 28.9 % (37.0-47.0); Hemoglobin 8.6 g/dL (11.5-15.3); Lymphocytes # 0.6 10^3/uL (0.8-4.8); Lymphocytes % 10.5 %; Mean Corpuscular HGB Conc 29.8 g/dL (30.0-36.0); Mean Corpuscular Hemoglobin 27.1 pg (28.0-34.0); Mean Corpuscular Volume 91.2 fL (81-99); Mean Platelet Volume 9.3 fL (7.4-10.4); Monocytes # 0.4 10^3/uL (0.2-0.9); Monocytes % 6.8 %; Neutrophils % 81.9 %; Nucleated Red Blood Cells % 0 %; Platelet Count 438 10^3/cmm (130-400); Red Blood Count 3.17 10^6/uL (4.1-5.3); White Blood Count 6.1 10^3/uL (4.0-10.0)
[2019-08-23 05:43] LABS: Alanine Aminotransferase 6 U/L (0-33); Albumin Level 2.8 g/dL (3.5-5.2); Alkaline Phosphatase 64 IU/L (35-105); Anion Gap 10.5 (5-19); Aspartate Amino Transferase 14 U/L (0-32); Blood Urea Nitrogen 17 mg/dL (8-23); Calcium 9.6 mg/Dl (8.8-10.2); Carbon Dioxide 36 mmol/L (22-29); Chloride 100 mmol/L (98-107); Globulin 3.2 g/dL (1.3-4.6); Glomerular Filtration Rate 158.7 mL/min (90-130); Glucose 138 mg/dL (74-106); Magnesium 2.3 mg/dL (1.7-2.3); Phosphorus 2.5 mg/dL (2.5-4.5); Potassium 4.5 mmol/L (3.5-5.1); Sodium 142 mmol/L (136-145); Total Bilirubin 0.2 mg/dL (0.15-1.2)
[2019-08-23 06:07] LABS: Procalcitonin 0.07 ng/mL (0-0.8)
[2019-08-23] MEDS: piperacillin-tazobactam 2.25 GM in sodium chloride 0.9% (plus) 50 ML IV (06:26)
[2019-08-23] MEDS: atorvastatin 40 mg Tablet PO (08:27)
[2019-08-23] MEDS: doxycycline 100 mg Tablet PO ×2 (08:28→18:33)
[2019-08-23] MEDS: guaiFENesin 600 mg Tablet PO ×2 (08:28→18:33)
[2019-08-23] MEDS: metoprolol tartrate 25 mg Tablet PO ×2 (08:29→18:33)
[2019-08-23] MEDS: pantoprazole DR 40 mg Tablet PO ×2 (08:29→18:33)
[2019-08-23] MEDS: predniSONE 20 mg Tablet 40 MG PO (08:30)
--- NOTE | 2019-08-23 09:25 | PC.SOCIAL ---
IMM Page 2 of IMM explained to and signed by patient. She verbalizes understanding. Initialed, dated, and timed and placed back in chart. Copy provided to patient.
--- NOTE | 2019-08-23 13:09 | PM.PN ---
Subjective Subjective: Interval history: Patient states that she is doing well, overnight she did have an episode of sudden shortness of breath, but other than that, no fevers, no chills, no chest pain, no palpitations, no bloody stools, no black stools Vitals/I&O/Wt Last Vital Signs Temp 98 F 08/23/19 12:00 Pulse 90 08/23/19 12:00 Resp 20 H 08/23/19 12:00 BP 126/68 08/23/19 12:00 Pulse Ox 88 L 08/23/19 12:00 08/22/19 08/23/19 08/23/19 22:59 06:59 14:59 Intake Total 660 / 1190 250 / 1440 290 / 290 Balance 660 / 1190 250 / 1440 290 / 290 Weight last 48 hrs Weight 44.452 kg Weight 42.728 kg Physical Exam Const: COMMON NORMALS: no apparent distress and oriented x3 GENERAL APPEARANCE: cooperative, comfortable, well kempt and well developed NUTRITIONAL APPEARANCE: cachectic Neck/C-Spine: COMMON NORMALS: no JVD Resp: COMMON NORMALS: normal respiratory effort, no retractions, no use of accessory muscles, clear to auscultation bilaterally and percussion normal AUSCULTATION: clear to auscultation bilaterally PERCUSSION: percussion normal Cardio: COMMON NORMALS: no JVD, regular rate, regular rhythm, S1 normal heart sound and S2 normal heart sound RATE: regular rate RHYTHM: regular rhythm HEART SOUNDS: S1 normal and S2 normal GI: COMMON NORMALS: normal to inspection, nondistended, normoactive bowel sounds, soft to palpation, non-tender and no hepatosplenomegaly PALPATION: Yes soft and Yes no hepatosplenomegaly : COMMON NORMALS: Yes no CVA tenderness BLADDER/KIDNEY EXAM: Yes no CVA tenderness Back/Pelvis: COMMON NORMALS: no CVA tenderness Extremity: COMMON NORMALS: normal capillary refill, no clubbing, cyanosis or edema and no pedal edema Neuro: COMMON NORMALS: oriented x3 Psych: COMMON NORMALS: mental status grossly normal and cooperative APPEARANCE: Yes well kempt Data Micro: Micro: Microbiology 08/22/19 22:55 Occult Blood (FIT) - Final Stool 08/22/19 10:09 MRSA Culture - Fin al Nose 08/19/19 13:00 Gram Stain - Final Sputum - Expector ated Sputum Sputum Culture - F inal 08/22/19 06:05 Bacterial Antigens - Final Urine,Clean Catch A&P Assessment and plan (1) Acute on chronic respiratory failure with hypoxia and hypercapnia: -Has risk factors for healthcare associated morning, has had multiple admissions in the last year for respiratory failure pneumonia -Likely secondary to left upper and middle lobe pneumonia, COPD exacerbation, A. fib with RVR Plan: -De-escalate antibiotics to doxycycline -Prednisone 40 mg once daily -DuoNeb treatment -Continue home trilogy -Oxygen therapy protocol -Patient is okay with elective intubation if required -CT scans showing central cavitation in the left upper lobe, findings concerning for possible pulmonary malignancy, will have Dr. Negron to help me in the discussion with family Status: Acute Code(s): J96.21 - Acute and chronic respiratory failure with hypoxia; J96.22 - Acute and chronic respiratory failure with hypercapnia (2) Pseudomonas aeruginosa colonization: Status: Acute Code(s): Z22.39 - Carrier of other specified bacterial diseases (3) Severe chronic obstructive pulmonary disease: Status: Acute Code(s): J44.9 - Chronic obstructive pulmonary disease, unspecified (4) Healthcare-associated pneumonia: Status: Acute Code(s): J18.9 - Pneumonia, unspecified organism (5) New onset atrial fibrillation: -In the ER she was given 5 mg labetalol, heart rate came down to the low 100s, A. fib -Patient has converted to normal sinus rhythm -Hemoglobin stable at 8.6, no bloody stools, no black stools, no significant symptomatology, continue to hold anticoagulation, discussed possible low-dose aspirin tomorrow Plan: -Cardiac echocardiogram, ejection fraction 65%, no wall motion abnormalities -Metoprolol 25 mg twice daily -Hold Eliquis 5 mg twice daily Status: Acute Code(s): I48.91 - Unspecified atrial fibrillation (6) Pulmonary hypertension: Status: Acute Code(s): I27.20 - Pulmonary hypertension, unspecified (7) Severe protein-calorie malnutrition: Status: Acute Code(s): E43 - Unspecified severe protein-calorie malnutrition (8) NSTEMI (non-ST elevated myocardial infarction): -Likely type II, supply demand ischemia from respiratory failure -No acute ST-T wave changes seen on EKG Plan: -Hold aspirin, statin -Continue telemetry monitoring -Cardiac echocardiogram ejection fraction 65%, diastolic dysfunction -Nitro PRN Status: Acute Code(s): I21.4 - Non-ST elevation (NSTEMI) myocardial infarction Attestations Medical Necessity Statement*: Patient requires continued hospitalization, for acute respiratory failure secondary to COPD pneumonia Coding Level of Care Code Acute Aerospace Project Engineer for g 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
[2019-08-23 13:33] LABS: Hematocrit 30.8 % (37.0-47.0); Hemoglobin 9.1 g/dL (11.5-15.3)
[2019-08-23] MEDS: FUROsemide 10 mg/mL SDV 4mL 40 MG IVP (18:34)
[2019-08-23 18:52] LABS: Hemoglobin 9.4 g/dL (11.5-15.3)
--- NOTE | 2019-08-23 21:37 | P.CONIM_ITS ---
Providers/Reason For Consult Consulting Physican/Specialty*: Pulmonology Reason for Consult*: Severe COPD with left upper lobe lesion, concern for malignancy/aspergilloma Attending Physician: Herbie Cifuentes MD Primary Care Provider: Say Joseph History of Present Illness History of Present Illness Marie Hull is a 69 year old female who presented to the hospital with severe shortness of breath and was found to be an acute on chronic hypoxic and hypercapnic respiratory failure. The patient has advanced COPD, severe emphysema and is on trilogy at home. On admission to the hospital, the patient was treated for COPD exacerbation as well as pneumonia with broad-spectrum antibiotics. The patient had a CT chest with contrast done which revealed severe emphysema with bullous disease in the lung apices. The patient was also found to have a left upper lobe masslike le moses measuring 4.5 x 3.3 cm. This lesion appears to have gotten bigger compared to the previous CT scan. According to the radiology read there was a central area of cavitation however I am unsure if that area just represents an emphysematous focus. The patient was also found to have bilateral small pleural effusion. A pulmonary consultation was asked for to evaluate the patient for this lesion being an aspergilloma or any malignancy. I have seen and examined the patient today. Her daughter was present at bedside. The patient currently states that she is feeling much better. She denies any fever, night sweats or chills. She did have an episode of worsening shortness of breath last night. No hemoptysis. I had performed a bedside ultrasound which revealed very small right-sided pleural effusion and about 50 cc of fluid in the left-sided pleural effusion. The patient also gives me history of bilateral lower extremity swelling when the patient came in. On ultrasound there was no evidence of complexity in the pleural effusion. I also performed an echocardiogram at bedside. Her IVC was not overtly dilated. There is good LV and RV function. Review of Systems Narrative: General: No fevers chills night sweats Skin: No rash HEENT: No nasal congestion, rhinitis, sinusitis, sneezing, hoarseness of voice. There is no blurred vision, double vision, redness of the eye or visual loss. There is no oral ulcer, sore throat or dry mouth. Neck: There is no neck swelling, mass or swollen glands. Respiratory: Please see my HPI. Cardiovascular: No chest pain, exertional shortness of breath, some orthopnea, no proximal nocturnal dyspnea, palpitation or lower extremity edema has imp roved. Gastrointestinal: No abdominal pain, nausea, vomiting, melena or symptoms suggestive of GERD. Musculoskeletal: No joint pain or swelling, muscle weakness, morning stiffness, numbness or tingling. Neurological: Patient is awake alert and oriented x3, no paralysis, gross motor function is normal. Psychiatric: No anxiety or depression. Meds/Allergies Home Medications and Allergies Home Medications Medication Instructions Recorded Confirmed Type albuterol sulfate [Ventolin HFA] 1 puff INHALATION TID PRN 08/20/19 08/20/19 History aspirin 81 mg PO DAILY 08/20/19 08/20/19 History celecoxib 200 mg PO BID 08/20/19 08/20/19 History fluticasone propion-salmeterol 1 inh INHALATION BID 08/20/19 08/20/19 History [Advair Diskus] fluticasone propionate 2 spray INTRANASAL DAILY 08/20/19 08/20/19 History levocetirizine 5 mg PO DAILY 08/20/19 08/20/19 History tiotropium bromide [Spiriva with 1 cap INHALATION DAILY 08/20/19 08/20/19 History HandiHaler] Allergies Allergy/AdvReac Type Severity Reaction Status Date / Time levofloxacin [From [facility]] Allergy Unknown Verified 08/20/19 10:00 Current Medications Current Medications Generic Name Dose Route Start Last Admin Trade Name Freq PRN Reason Stop Dose Admin Acetaminophen 650 mg 08/22/19 09:21 08/22/19 10:00 Tylenol PO 650 mg Q6H PRN Administration MILD PAIN Albuterol/Ipratropium 3 ml 08/20/19 12:39 08/23/19 20:27 Duoneb INHALATION 3 ml Q4H YOLA Administration Atorvastatin Calcium 40 mg 08/20/19 12:39 08/23/19 08:27 Lipitor PO 40 mg DAILY YOLA Administration Doxycycline Monohydrate 100 mg 08/23/19 09:00 08/23/19 18:33 Vibramycin PO 100 mg BID YOLA Administration Protocol Guaifenesin 600 mg 08/20/19 22:00 08/23/19 18:33 Mucinex PO 600 mg BID YOLA Administration Metoprolol Tartrate 25 mg 08/20/19 18:00 08/23/19 18:33 Lopressor PO 25 mg BID YOLA Administration Pantoprazole Sodium 40 mg 08/23/19 09:00 08/23/19 18:33 Protonix PO 40 mg BID YOLA Administration Prednisone 40 mg 08/23/19 09:00 08/23/19 08:30 Prednisone PO 40 mg DAILY YOLA Administration PFSH Acute PFSH: Statuses (acute, chronic, etc) shown below reflect problem list status as previously entered and may not be historically accurate Medical History Acute on chronic respiratory failure with hypoxia and hypercapnia (Acute) COPD (chronic obstructive pulmonary disease) (Acute) Pseudomonas aeruginosa colonization (Acute) Pulmonary hypertension (Acute) Severe protein-calorie malnutrition (Acute) Surgical History History of back surgery (Acute) Family History Mother CAD (coronary artery disease) Social History Smoking and tobacco status: former smoker Alcohol intake: current Alcohol intake frequency: holidays/special occasions only Vitals/I&O/Wt Last Vital Signs Temp 98 F 08/23/19 20:00 Pulse 82 08/23/19 20:32 Resp 18 08/23/19 20:29 BP 134/71 08/23/19 20:00 Pulse Ox 97 08/23/19 20:29 08/23/19 08/23/19 08/23/19 06:59 14:59 22:59 Intake Total 250 / 1440 530 / 530 240 / 770 Balance 250 / 1440 530 / 530 240 / 770 Weight last 48 hrs Weight 98 lb Weight 94 lb 3.2 oz Physical Exam Narrative: EXAM NARRATIVE: General: Patient is awake alert and oriented, in no distress. HEENT: Pupil bilateral symmetric, light and accommodation reflex present, extraocular muscle movement intact, no deformity of the nose Neck: No JVD, no cervical or supraclavicular lymphadenopathy. Respiratory: Inspection: Barrel-shaped chest, no visible deformity, scarring or mass lesion Palpation: No tenderness, trachea shifted mildly to the right, reduced chest wall expansion symmetrically bilaterally, reduced vocal fremitus Percussion: Hyperresonance bilaterally both anteriorly and posteriorly Auscultation: Diminished breath sound bilaterally both anteriorly and posteriorly, vesicular breath sounds with prolonged expiration, no crackles,wheezing or rhonchi, reduced vocal resonance bilaterally Cardiovascular: Regular rate and rhythm, S1-S2 present, no murmur, no right ventricular heave, minimal peripheral edema. Abdomen: Soft, nontender, nondistended, positive bowel sound. No palpable organomegaly. Musculoskeletal: No obvious joint deformity, assessment of gait was not performed Skin: No rash, no evidence of erythema nodosum or multiforme. Neuro: Mental status is normal, no gross cranial nerve deficit, normal motor and coordination. Data Micro: Micro: Microbiology 08/22/19 22:55 Occult Blood (FIT) - Final Stool Other Data: Other data: I have reviewed the CT scan that was performed on August 21. The left upper lobe lesion appears to be larger than the previous CT scan however I do not believe there is a central cavitation. I also do not believe this to be an aspergilloma however this could very well be a malignant lesion. The bedside ultrasound revealed bilateral pleural effusion with left greater than right. There is about 30 to 50 cc of fluid in the left lung. The fluid appeared to be simple. A&P Assessment and plan (1) Mass of upper lobe of left lung: The left upper lobe mass could very easily be a malignant process. I have discussed with the patient and her daughter who is present at bedside and I have informed them that the patient could never be a surgical candidate even if it was cancer. I have also explained to them that an attempt to obtain a sample from this mass will most definitely cause pneumothorax and persistent air leak and possible bronchopleural fistula given her profound emphysematous changes around the lesion. Given these risks, the patient and the family have decided not to undergo any invasive attempts to make a diagnosis. However I have explained to them that the left-sided pleural fluid could be aspirated safely with a possible risk of pneumothorax. Given the patient's presence of bilateral edema when she presented to the hospital this left-sided pleural effusion could be secondary to cor pulmonale although there was no evidence of RV dysfunction on the echocardiogram. I am going to give the patient a dose of Lasix. If the effusion still persists tomorrow morning I will perform a thoracentesis and send the fluid for microbiologic and cytology studies. Status: Acute Code(s): R91.8 - Other nonspecific abnormal finding of lung field (2) Acute on chronic respiratory failure with hypoxia and hypercapnia: The patient seems to be doing much better. Her antibiotic regimen has been de-escalated. She had gotten Solu-Medrol initially currently she is on prednisone 40 mg. I will start her on budesonide nebulizer in addition to the bronchodilator. The oral steroid can be discontinued after 2 more days. I will be happy to follow-up with the patient as outpatient. Status: Acute Code(s): J96.21 - Acute and chronic respiratory failure with hypoxia; J96.22 - Acute and chronic respiratory failure with hypercapnia (3) Severe chronic obstructive pulmonary disease: The patient has severe COPD with centrilobular, paraseptal and bullous emphysema. She is on trilogy. She will need optimization of the trilogy to reduce her CO2 level. I will follow her up as outpatient and also perform repeat thoracentesis if necessary if there is any worsening of the pleural effusion. Status: Acute Code(s): J44.9 - Chronic obstructive pulmonary disease, unspecified Coding Level of Care Code Acute Non Destructive Testing Scientist for Chg Fwd Diagnoses Mass of upper lobe of left lung R91.8 Acute on chronic respiratory failure with hypoxia and hypercapnia J96.21; J96.22 Severe chronic obstructive pulmonary disease J44.9
[2019-08-24] VITALS (21 sets, daily range): BP systolic 106–139; BP diastolic 54–85; PULSE 79–102; RESP 15–23; TEMP 36.6–36.9; O2SAT 90–97
[2019-08-24] MEDS: ipratropium-albuterol 3 mL Neb INHALATION ×6 (00:07→20:22)
[2019-08-24 05:25] LABS: Basophils % 0.1 %; Eosinophils % 0.1 %; Hematocrit 31.9 % (37.0-47.0); Hemoglobin 9.6 g/dL (11.5-15.3); Lymphocytes # 2.2 10^3/uL (0.8-4.8); Lymphocytes % 25.5 %; Mean Corpuscular HGB Conc 30.1 g/dL (30.0-36.0); Mean Corpuscular Hemoglobin 26.1 pg (28.0-34.0); Mean Corpuscular Volume 86.7 fL (81-99); Mean Platelet Volume 9.1 fL (7.4-10.4); Monocytes # 1.4 10^3/uL (0.2-0.9); Neutrophils # 4.9 10^3/uL (1.8-7.7); Neutrophils % 57.5 %; Nucleated Red Blood Cells % 0 %; Platelet Count 532 10^3/cmm (130-400); Red Blood Count 3.68 10^6/uL (4.1-5.3); Red Cell Distribution Width 15.3 % (12.1-15.1); White Blood Count 8.5 10^3/uL (4.0-10.0)
[2019-08-24 05:33] LABS: Alanine Aminotransferase 12 U/L (0-33); Albumin Level 3.5 g/dL (3.5-5.2); Alkaline Phosphatase 58 IU/L (35-105); Anion Gap 11.7 (5-19); Aspartate Amino Transferase 26 U/L (0-32); Blood Urea Nitrogen 21 mg/dL (8-23); Calcium 9.3 mg/Dl (8.8-10.2); Carbon Dioxide 37 mmol/L (22-29); Chloride 96 mmol/L (98-107); Globulin 2.4 g/dL (1.3-4.6); Glomerular Filtration Rate 158.7 mL/min (90-130); Glucose 89 mg/dL (74-106); Potassium 3.7 mmol/L (3.5-5.1); Sodium 141 mmol/L (136-145); Total Bilirubin 0.2 mg/dL (0.15-1.2); Total Protein 5.9 g/dL (6.6-8.7)
--- NOTE | 2019-08-24 08:46 | PM.PN ---
Subjective Subjective: Interval history: The patient was seen and examined this morning. She is doing very well. Overnight she did not have any new complaints. The patient is received a dose of Lasix overnight and she had increased urine output. I performed a bedside ultrasound this morning. The patient still has the left-sided pleural effusion which is very small with atelectasis of its small lung segment. Medications: Reviewed: Yes Vitals/I&O/Wt Last Vital Signs Temp 98.4 F 08/24/19 08:00 Pulse 91 08/24/19 08:00 Resp 21 H 08/24/19 08:00 BP 106/54 08/24/19 08:00 Pulse Ox 97 08/24/19 08:00 08/23/19 08/24/19 08/24/19 22:59 06:59 14:59 Intake Total 240 / 770 240 / 240 Output Total 800 / 800 Balance -560 / -30 240 / 240 Weight last 48 hrs Weight 94 lb Weight 94 lb Weight 98 lb Weight 94 lb 3.2 oz Physical Exam Narrative: EXAM NARRATIVE: General: Patient is awake alert and oriented, in no distress. Neck: No JVD, no cervical or supraclavicular lymphadenopathy. Respiratory: Inspection: Barrel-shaped chest, no visible deformity, scarring or mass lesion Palpation: No tenderness, trachea shifted mildly to the right, reduced chest wall expansion symmetrically bilaterally, reduced vocal fremitus Percussion: Hyperresonance bilaterally both anteriorly and posteriorly Auscultation: Diminished breath sound bilaterally both anteriorly and posteriorly, vesicular breath sounds with prolonged expiration, no crackles,wheezing or rhonchi, reduced vocal resonance bilaterally Cardiovascular: Regular rate and rhythm, S1-S2 present, no murmur, no right ventricular heave, no peripheral edema. Abdomen: Soft, nontender, nondistended, positive bowel sound. No palpable organomegaly. Musculoskeletal: No obvious joint deformity, assessment of gait was not performed Skin: No rash, no evidence of erythema nodosum or multiforme. Neuro: Mental status is normal, no gross cranial nerve deficit, normal motor and coordination. Data Micro: Micro: Microbiology 08/22/19 22:55 Occult Blood (FIT) - Final Stool A&P Assessment and plan (1) Mass of upper lobe of left lung: Even after diuresis, the patient continues to have persistent left-sided small pleural effusion. As described in my consultation note, the left upper lobe mass is concerning for malignancy. I will perform a thoracentesis this evening and send the fluid for studies including cytologic study. The patient appears comfortable. I have explained to her in detail that there is a chance of her developing a pneumothorax among other complications of the thoracentesis given the very small volume as well as presence of severe emphysema. The patient might be ready for discharge today. Status: Acute Code(s): R91.8 - Other nonspecific abnormal finding of lung field (2) Acute on chronic respiratory failure with hypoxia and hypercapnia: The patient has chronic hypoxic and hypercapnic respiratory failure from her severe COPD as result of emphysema. The patient to follow-up with me as outpatient and I will optimize her trilogy settings as well as her inhaler regimen. Status: Acute Code(s): J96.21 - Acute and chronic respiratory failure with hypoxia; J96.22 - Acute and chronic respiratory failure with hypercapnia Attestations Medical Necessity Statement*: Will defer to the primary team Coding Level of Care Code Acute Machine Feed Operator for Jihan Jimenes Diagnoses Mass of upper lobe of left lung R91.8 Acute on chronic respiratory failure with hypoxia and hypercapnia J96.21; J96.22
[2019-08-24] MEDS: budesonide 0.5 mg/2 mL Neb INHALATION ×2 (09:12→20:22)
[2019-08-24] MEDS: guaiFENesin 600 mg Tablet PO ×2 (09:43→17:47)
[2019-08-24] MEDS: predniSONE 20 mg Tablet 40 MG PO (09:43)
[2019-08-24] MEDS: doxycycline 100 mg Tablet PO ×2 (09:43→17:47)
[2019-08-24] MEDS: metoprolol tartrate 25 mg Tablet PO ×2 (09:43→17:46)
[2019-08-24] MEDS: pantoprazole DR 40 mg Tablet PO ×2 (09:43→17:47)
[2019-08-24] MEDS: atorvastatin 40 mg Tablet PO (09:43)
--- NOTE | 2019-08-24 11:52 | P.PN_ITS ---
Subjective Subjective: Interval history: This morning patient sitting at bedside, is awaiting to have a thoracocentesis by Dr. Negron, hopefully in the afternoon, has no significant complaints medical breathing has improved, Vitals/I&O/Wt Last Vital Signs Temp 97.8 F 08/24/19 11:30 Pulse 89 08/24/19 11:30 Resp 22 H 08/24/19 11:30 BP 113/60 08/24/19 11:30 Pulse Ox 92 08/24/19 11:30 08/23/19 08/24/19 08/24/19 22:59 06:59 14:59 Intake Total 240 / 770 240 / 240 Output Total 800 / 800 Balance -560 / -30 240 / 240 Weight last 48 hrs Weight 42.638 kg Weight 42.638 kg Weight 44.452 kg Physical Exam Const: COMMON NORMALS: no apparent distress and oriented x3 GENERAL APPEARANCE: cooperative, comfortable, well kempt and well developed NUTRITIONAL APPEARANCE: cachectic Neck/C-Spine: COMMON NORMALS: no JVD Chest: COMMONS NORMALS: inspection of chest normal Resp: COMMON NORMALS: normal respiratory effort, no retractions, no use of accessory muscles, clear to auscultation bilaterally and percussion normal EFFORT & INSPECTION: Yes able to speak in complete sentences and Yes actively coughing AUSCULTATION: clear to auscultation bilaterally PERCUSSION: percussion normal Cardio: COMMON NORMALS: no JVD, regular rate, regular rhythm, S1 normal heart sound and S2 normal heart sound RATE: regular rate and tachycardic RHYTHM: regular rhythm and abnormal rhythm irregularly irregular HEART SOUNDS: S1 normal and S2 normal GI: COMMON NORMALS: normal to inspection, nondistended, normoactive bowel sounds, soft to palpation, non-tender and no hepatosplenomegaly PALPATION: Yes soft and Yes no hepatosplenomegaly Neuro: COMMON NORMALS: oriented x3, CN's II-XII intact bilaterally, moves all extremities and no focal motor deficits Psych: COMMON NORMALS: mental status grossly normal and cooperative APPEARANCE: Yes well kempt Skin: COMMON NORMALS: no rashes or lesions noted GENERAL SKIN EXAM: no rashes or lesions noted A&P Assessment and plan (1) Acute on chronic respiratory failure with hypoxia and hypercapnia: -Has risk factors for healthcare associated morning, has had multiple admissions in the last year for respiratory failure pneumonia -Likely secondary to left upper and middle lobe pneumonia, COPD exacerbation, A. fib with RVR Plan: -De-escalate antibiotics to doxycycline -Prednisone 40 mg once daily -DuoNeb treatment -Continue home trilogy -Oxygen therapy protocol -Patient is okay with elective intubation if required -CT scans showing central cavitation in the left upper lobe, findings concerning for possible pulmonary malignancy, will have Dr. Negron to help me in the d iscussion with family, will have a thoracocentesis for evaluation for pulmonary malignancy today Status: Acute Code(s): J96.21 - Acute and chronic respiratory failure with hypoxia; J96.22 - Acute and chronic respiratory failure with hypercapnia (2) Pseudomonas aeruginosa colonization: Status: Acute Code(s): Z22.39 - Carrier of other specified bacterial diseases (3) Severe chronic obstructive pulmonary disease: Status: Acute Code(s): J44.9 - Chronic obstructive pulmonary disease, unspecified (4) Healthcare-associated pneumonia: Status: Acute Code(s): J18.9 - Pneumonia, unspecified organism (5) New onset atrial fibrillation: -In the ER she was given 5 mg labetalol, heart rate came down to the low 100s, A. fib -Patient has converted to normal sinus rhythm -Hemoglobin stable at 9.6, no bloody stools, no black stools, no significant symptomatology, continue to hold anticoagulation, discussed possible low-dose aspirin tomorrow Plan: -Cardiac echocardiogram, ejection fraction 65%, no wall motion abnormalities -Metoprolol 25 mg twice daily -Hold Eliquis 5 mg twice daily, will likely resume aspirin as outpatient, hold Eliquis until discussion as outpatient Status: Acute Code(s): I48.91 - Unspecified atrial fibrillation (6) Pulmonary hypertension: Status: Acute Code(s): I27.20 - Pulmonary hypertension, unspecified (7) Severe protein-calorie malnutrition: Status: Acute Code(s): E43 - Unspecified severe protein-calorie malnutrition (8) NSTEMI (non-ST elevated myocardial infarction): -Likely type II, supply demand ischemia from respiratory failure -No acute ST-T wave changes seen on EKG Plan: -Hold aspirin, statin -Continue telemetry monitoring -Cardiac echocardiogram ejection fraction 65%, diastolic dysfunction -Nitro PRN Status: Acute Code(s): I21.4 - Non-ST elevation (NSTEMI) myocardial infarction Attestations Medical Necessity Statement*: Patient requires continued hospitalization due to acute respiratory failure, possible pulmonary malignancy requiring thoracocentesis Coding Level of Care Code Acute Planetarium Technician for Chg 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
--- NOTE | 2019-08-24 17:49 | XR_ITS ---
WS: [id number] Portable AP upright chest, 08/24/2019 Clinical Data: post thoracentesis Comparison: Portable chest, 08/20/2019 Findings: The upper lobe bullous emphysematous changes remain the same. The left lower lobe consolida tion has diminished and there is a small residual. There is blunting the left costophrenic angle whic h may represent a small effusion and/or pleural reaction. The lower right lung is clear. The heart si ze is normal. The aortic arch and descending aorta show tortuosity. There have been multiple vertebra l plasties of the T11-L2 vertebral bodies. Monitor leads on the chest wall. The pulmonary vascularity is not increased. No pneumothorax is seen. XR/XR chest 1V portable [id number] Impression: 1. Decrease in left lower lobe consolidation which represents partial clearing of pneumonia. 2. No change in severe upper lobe bullous emphysematous disease. 3. No change in hyperinflation and atherosclerosis.
--- NOTE | 2019-08-24 17:52 | PM.ACPR ---
Procedure/Consent Time out: Time Out Performed: Yes Consent: Consent for Procedure: Consent obtained from patient Procedure Narrative: Name of the procedure: Left sided thoracentesis under ultrasound guidance. Indication: Suspicion for malignant pleural effusion. Anesthetics: Local anesthesia with 1% lidocaine. IV pain medication: None. Description of the procedure: The procedure was explained to the patient in detail including the risks and a consent was obtained. The left hemithorax was scanned with ultrasound to find a safe fluid pocket. Small left-sided pleural effusion was noted. Following identification of the fluid pocket site was marked. The site was cleaned using sterile technique. Lidocaine 1% was injected into the skin and the subcutaneous tissue. Subsequently, the periosteum in the pleural space was also anesthetized using lidocaine. The pleural space was entered in the posterior axillary line in the left 10th intercostal space. Straw-colored fluid was aspirated. About 20 mL of fluid was aspirated. The fluid was sent for Gram stain and culture, fungal stain and culture, AFB stain and culture, cell count and differential, pH, glucose, protein, LDH and albumin. The fluid was also sent for cytology. Postprocedure chest x-ray is pending. There was no immediate complication. Acute Procedures Epistaxis Control: Time out performed: Yes
[2019-08-24] MEDS: morphine 4 mg/mL SDV 1 mL 1 MG IVP (18:04)
--- NOTE | 2019-08-24 18:35 | PC.NURSE ---
Bed side thoracentisis performed at this time by Dr. dill assisted by this nurse consent for procedure colleted by Dr. dill patient tolerated well 15 ml plural fluid obtained.
[2019-08-24 18:40] LABS: Appearance, Pleural Fluid BLOODY (CLEAR); Color, Pleural Fluid Slight Pink (Pale Yellow)
[2019-08-24 18:41] LABS: LDH Pleural Fluid 93 U/L; Total Protein Pleural Fluid 2.4 g/dL
[2019-08-24 18:42] LABS: PATH Referal YES; Pleural Fluid Albumin 1.5 g/dL
[2019-08-25] VITALS (9 sets, daily range): BP systolic 114–119; BP diastolic 60–65; PULSE 76–93; RESP 18–20; TEMP 36.6; O2SAT 92–97
[2019-08-25] MEDS: ipratropium-albuterol 3 mL Neb INHALATION ×3 (00:42→08:09)
[2019-08-25 03:31] LABS: Hematocrit 30.2 % (37.0-47.0); Hemoglobin 9.5 g/dL (11.5-15.3); Lymphocytes # 1.6 10^3/uL (0.8-4.8); Lymphocytes % 22.8 %; Mean Corpuscular HGB Conc 31.5 g/dL (30.0-36.0); Mean Corpuscular Hemoglobin 27.6 pg (28.0-34.0); Mean Corpuscular Volume 87.8 fL (81-99); Mean Platelet Volume 8.7 fL (7.4-10.4); Monocytes # 0.8 10^3/uL (0.2-0.9); Neutrophils # 4.4 10^3/uL (1.8-7.7); Neutrophils % 64.3 %; Nucleated Red Blood Cells % 0 %; Platelet Count 479 10^3/cmm (130-400); Red Blood Count 3.44 10^6/uL (4.1-5.3); Red Cell Distribution Width 15.3 % (12.1-15.1); White Blood Count 6.9 10^3/uL (4.0-10.0)
[2019-08-25 04:03] LABS: Alanine Aminotransferase 13 U/L (0-33); Alkaline Phosphatase 53 IU/L (35-105); Anion Gap 9.4 (5-19); Aspartate Amino Transferase 21 U/L (0-32); Blood Urea Nitrogen 16 mg/dL (8-23); Calcium 9.4 mg/Dl (8.8-10.2); Carbon Dioxide 34 mmol/L (22-29); Chloride 98 mmol/L (98-107); Globulin 2.6 g/dL (1.3-4.6); Glomerular Filtration Rate 221.2 mL/min (90-130); Glucose 112 mg/dL (74-106); Potassium 4.4 mmol/L (3.5-5.1); Sodium 137 mmol/L (136-145); Total Bilirubin 0.2 mg/dL (0.15-1.2); Total Protein 5.6 g/dL (6.6-8.7)
--- NOTE | 2019-08-25 07:36 | XR_ITS ---
WS: [id number] Portable AP upright chest, 08/25/2019, 0759 hours Clinical Data: sob Comparison: Portable chest, 08/24/2019 Findings: The upper lobe bullous emphysematous change remains the same. The left lower lobe consolida tion has almost totally cleared. There is blunting of the left costophrenic angle which may represent a small effusion or pleural reaction. The lower right lung remains clear. Monitor leads on the chest wall. The heart is normal. The aortic arch and descending aorta show calcification and tortuosity. M ultiple vertebral plasties from T11 through L3 are seen. The pulmonary vascularity is not increased. No pneumothorax is seen. XR/XR chest 1V portable [id number] Impression: 1. No change in minimal consolidation and infiltrate in left lower lobe. 2. No change in severe upper lobe bullous emphysema. No change in atherosclerosis.
[2019-08-25] MEDS: budesonide 0.5 mg/2 mL Neb INHALATION (08:09)
[2019-08-25] MEDS: metoprolol tartrate 25 mg Tablet PO (09:24)
[2019-08-25] MEDS: doxycycline 100 mg Tablet PO (09:24)
[2019-08-25] MEDS: predniSONE 20 mg Tablet 40 MG PO (09:24)
[2019-08-25] MEDS: pantoprazole DR 40 mg Tablet PO (09:24)
[2019-08-25] MEDS: atorvastatin 40 mg Tablet PO (09:25)
[2019-08-25] MEDS: guaiFENesin 600 mg Tablet PO (09:25)
[2019-08-25 09:30] LABS: Lactate Dehydrogenase 152 U/L (135-214)
--- NOTE | 2019-08-25 09:51 | PM.DCS ---
Discharge Providers Date of Admission: 08/20/19 11:49 Date of Discharge: 08/25/19 Attending Provider at Admission: Herbie Cifuentes MD Attending Provider at Discharge: Herbie Cifuentes MD Primary Care Provider: Say Joseph Diagnoses at Discharge Discharge Diagnosis (1) Acute on chronic respiratory failure with hypoxia and hypercapnia: Status: Acute (2) Pseudomonas aeruginosa colonization: Status: Acute (3) Severe chronic obstructive pulmonary disease: Status: Acute (4) Healthcare-associated pneumonia: Status: Acute (5) New onset atrial fibrillation: Status: Acute (6) Pulmonary hypertension: Status: Acute (7) Severe protein-calorie malnutrition: Status: Acute (8) NSTEMI (non-ST elevated myocardial infarction): Status: Acute Reason for Visit Reason for Visit: Reason For Visit: CHEST PAIN Hospital Course Hospital Course: Marie Hull is a 69 year old female with a past medical history of severe COPD with history of bullous emphysema 2 L oxygen dependent, on home trilogy machine who presents to the emergency room due to complaints of short worsening shortness of breath, productive cough, chest pain since . Patient states at baseline she is short of breath less than 100 feet, has severe COPD, uses trilogy machine overnight, 2 L oxygen dependent, has had multiple hospitalizations in the past year for COPD exacerbations. Previous sputum cultures have grown Pseudomonas, with intermediate sensitivity to Levaquin. Discharge Summary: Patient was admitted for acute respiratory failure secondary to left lower lobe pneumonia, COPD exacerbation, she clinically improved with broad-spectrum antibiotics, IV hydration, nebulizer treatments, steroids. Her respiratory cultures, blood cultures were unremarkable. Patient was discharged on her inhalers, a prednisone taper, and a follow-up with pulmonary critical care Dr. Negron in 2 to 3 weeks. In addition during her admission patient was found to have a mass in her upper lung left lung, too difficult to access given her high risk of pneumothorax given her bullous emphysema, she did have a left pleural effusion, which Dr. Negron performed a bedside thoracocentesis, 20 cc of fluid were obtained, sent for pathology. Patient is to follow-up with pathology results with primary care Dr. Negron in 2 to 3 weeks. Patient was advised to quit smoking. During her admission, patient had atrial fibrillation likely secondary to acute respiratory failure, she was placed on Eliquis, but she had a drop in her hemoglobin to 8.3, without bloody stools, Hemoccult negative, the decision was made about anticoagulation, as patient converted to normal sinus rhythm and was rate controlled with metoprolol 25 twice daily, patient was agreeable to continue aspirin 81 mg once daily. I did have an extensive discussion about the risks and benefits of anticoagulation in atrial fibrillation, and the risk of stroke and GI bleed, currently her risk of GI bleed is higher given her drop in hemoglobin with primary care and executive meeting manager outpatient on decisions about whether to resume Eliquis. Patient is to recheck hemoglobin in one 1 week. I suspect that when in the future patient goes into acute respiratory failure, she will go back into her fibrillation, and this is her highest risk [place] [address] Ultrasound Report Signed Patient: Marie Hull KMR#: [id number] : 1950cct:[id number] Age/Sex: 69 / FADM Date: 08/20/19 Loc: BMP671-[address]: Herbie Cifuentes MD Ordering Physician: Herbie Cifuentes MD Date of Service: 08/21/19 Procedure(s): CV echo complete* [id number] Accession Number(s): [id number] cc: Herbie Cifuentes MD~ Marie Hull Age: 69 Gender: F : 1950 Exam Date: 08/21/2019 05:41 Ordering Phys: Herbie Cifuentes MD Technologist: Yuki Godinez Exam Location: [facility] [place] Indication: CHEST PAIN BP: 90 / 57 HR: 97 Rhythm: Sinus Technical Quality: Adequate MEASUREMENTS (Male / Female) Normal Values 2D ECHO LV Diastolic Diameter PLAX 3.5 cm 4.2 - 5.9 / 3.9 - 5.3 cm LV Systolic Diameter PLAX 2.2 cm LV Chamber Size 3.1 cm IVS Diastolic Thickness 1.2 cm 0.6 - 1.0 / 0.6 - 0.9 cm IVS Systolic Thickness 1.2 cm LVPW Diastolic Thickness 1.0 cm 0.6 - 1.0 / 0.6 - 0.9 cm LVPW Systolic Thickness 0.9 cm RV Chamber Size 3.0 cm LVOT Diameter 2.0 cm LV Ejection Fraction 2D Teich 70.1 % LV Ejection Fraction MOD 2C 23.4 % LV Ejection Fraction 2C AL 22.9 % LA Diameter 2.2 cm LA Width 1.7 cm LA Height 2.6 cm RA Width 3.0 cm RA Height 2.5 cm Aorta at Sinotubular Diameter 3.2 cm M-MODE LV Diastolic Diameter MM 5.5 cm 4.2 - 5.9 / 3.9 - 5.3 cm LV Systolic Diameter MM 3.2 cm LV Ejection Fraction MM Teich 72.5 % IVS Diastolic Thickness MM 1.0 cm 0.6 - 1.0 / 0.6 - 0.9 cm IVS Systolic Thickness MM 1.8 cm LVPW Diastolic Thickness MM 1.0 cm 0.6 - 1.0 / 0.6 - 0.9 cm LVPW Systolic Thickness MM 1.4 cm RV Diastolic Diameter MM 0.8 cm Aortic Annulus Diameter 4.0 cm LA Ao Ratio MM 0.6 MV E Point Septal Separation 0.1 cm DOPPLER AV Peak Velocity 156.0 cm/s LVOT Peak Velocity 101.0 cm/s AV Area Cont Eq vti 2.4 cm squared AV Area Cont Eq pk 2.1 cm squared MV Area PHT 7.9 cm squared Mitral E to A Ratio 0.7 MV E' Velocity 11.0 cm/s Mitral E to MV E' Ratio 7.1 Mitral E to LV E' Lateral Ratio 8.0 Mitral E to LV E' Septal Ratio 6.4 TR Peak Velocity 292.1 cm/s TR Peak Gradient 34.1 mmHg TR Mean Velocity 221.9 cm/s TR Mean Gradient 21.5 mmHg TR Velocity Time Integral 96.2 cm TV Peak E Velocity 86.0 cm/s Right Atrial Pressure 3.0 mmHg Pulmonary Artery Systolic Pressu 37.1 mmHg PV Peak Velocity 54.0 cm/s RV Acceleration Time 0.1 s RV Ejection Time 0.3 s RV AcT/ET 0.5 FINDINGS Left Ventricle Normal left ventricular cavity size. Normal left ventricular systolic function. No regional wall motion abnormalities. Left ventricular ejection fraction is estimated at 65 %. Grade I/IV diastolic dysfunction (abnormal relaxation filling pattern), normal to mildly elevated filling pressures. Right Ventricle The right ventricle is normal in size and function. Right Atrium The right atrium is normal in size. Left Atrium The left atrium is normal in size. Mitral Valve Structurally normal mitral valve without significant stenosis or prolapse. There is no mitral regurgitation. Aortic Valve Aortic valve sclerosis. No aortic valve stenosis. No aortic valve regurgitation. Tricuspid Valve Structurally normal tricuspid valve without significant stenosis or regurgitation. Pulmonary artery systolic pressure is normal. Pulmonic Valve Structurally normal pulmonic valve without significant stenosis. There is no pulmonic regurgitation. Pericardium Normal pericardium without effusion. Aorta Normal ascending aorta dimension. CONCLUSIONS 1-Normal left ventricular cavity size. Normal left ventricular systolic function. No regional wall motion abnormalities. Left ventricular ejection fraction is estimated at 65 %. Grade I/IV diastolic dysfunction (abnormal relaxation filling pattern), normal to mildly elevated filling pressures. 2-Aortic valve sclerosis. No aortic valve stenosis. No aortic valve regurgitation. 3-There is no pericardial effusion. 4-Pulmonary artery systolic pressure is within normal limits. 5-Right atrial pressure is around 5 mm of mercury. 6-When compared to the prior echocardiogram dated 12/19/2014 there is no aortic valve stenosis now. Overall left ventricular ejection fraction stays normal. WS: [id number] CT CHEST TECHNIQUE: Contrast enhanced CT of the chest with coronal and sagittal reformatted images. CLINICAL INFORMATION: sob COMPARISON: 019 DLP: 285.[address] scans at [facility] use at least one of these dose optimization techniques: automated exposure control; mA and/or kV adjustment per patient size (includes targeted exams where dose is matched to clinical indication); or iterative reconstruction. FINDINGS: Advanced chronic emphysematous changes with bullous formation in the lung apices. Extensive pleural-parenchymal scarring with more focal and progressed parenchymal and pleural fibrosis in the left upper lobe. Small amount of central cavitation in this area measuring 1.9 CM. Total area of parenchymal consolidation measures 4.5 x 3.3 cm progressed from previous. Some of this is due to chronic scarring but has progressed from previous. Recommend correlation for fungal pneumonia/aspergilloma considering the area of cavitation. Small left pleural effusion slightly progressed from previous with interstitial edema in the left lower lobe and lingula. Small right pleural effusion is stable. Stable pleural and parenchymal fibrosis in the right upper lobe. Aortic calcification. Coronary calcification. No mediastinal or hilar lymphadenopathy. Calcified right hilar nodes. Adrenal glands are normal. Small esophageal hiatal hernia. Mild thoracic kyphosis with vertebroplasty changes and chronic compression in the mid and lower thoracic spine unchanged. Chronic compression of the T6 vertebral body unchanged. CT/CT chest w con* [id number] IMPRESSION: 1. Again seen is advanced centrilobular bullous emphysematous change. 2. Small pleural effusion has progressed compared to previous with interstitial edema and compressive atelectasis left lower lobe. Correlation for left lower lobe pneumonia. 3. Progressed pleural and parenchymal fibrosis in the left upper lobe and adjacent left hilum with a small amount of central cavitation in this area. Area of cavitation measures 1.9 CCM. Recommend correlation for aspergilloma/fungal pneumonia. 4. Small right pleural effusion is unchanged. 5. No other significant interval changes. Physical Exam Const: COMMON NORMALS: no apparent distress and oriented x3 GENERAL APPEARANCE: cooperative, comfortable, well kempt and well developed NUTRITIONAL APPEARANCE: cachectic Neck/C-Spine: COMMON NORMALS: no JVD Lymph: LYMPHATIC: no lymphadenopathy noted Chest: COMMONS NORMALS: inspection of chest normal Resp: COMMON NORMALS: normal respiratory effort, no retractions, no use of accessory muscles, clear to auscultation bilaterally and percussion normal EFFORT & INSPECTION: Yes able to speak in complete sentences AUSCULTATION: clear to auscultation bilaterally PERCUSSION: percussion normal Cardio: COMMON NORMALS: no JVD, regular rate, regular rhythm, S1 normal heart sound and S2 normal heart sound RATE: regular rate and tachycardic RHYTHM: regular rhythm and abnormal rhythm irregularly irregular HEART SOUNDS: S1 normal and S2 normal GI: COMMON NORMALS: normal to inspection, nondistended, normoactive bowel sounds, soft to palpation, non-tender and no hepatosplenomegaly PALPATION: Yes soft and Yes no hepatosplenomegaly Extremity: COMMON NORMALS: normal capillary refill, no clubbing, cyanosis or edema and no pedal edema Neuro: COMMON NORMALS: oriented x3, CN's II-XII intact bilaterally, moves all extremities and no focal motor deficits Psych: APPEARANCE: Yes well kempt Discharge Data Data Completed and Pending: Completed Studies During Hospitalization Category Date Time Status CT chest w con* [id number] Routine Cat Scan 08/21/19 10:27 Completed XR chest 1V mj ble [id number] Stat Exams 08/24/19 17:49 Completed XR chest 1V mj ble [id number] Stat Exams 08/25/19 07:36 Completed XR chest 1V mj ble [id number] Urgent Exams 08/20/19 09:53 Completed CV echo complete* [id number] Routine Ultrasound 08/21/19 06:00 Completed Pending at discharge Category Date Time Status Blood Culture Sta t Lab 08/20/19 10:53 Results Body Fluid Cultur e Stat Lab 08/24/19 17:40 Results CBC [Complete Blo od Count w/Auto] A M LABS Lab 08/26/19 04:00 Ordered Comprehensive Met abolic Panel AM LA BS Lab 08/26/19 04:00 Ordered Fungal Culture no t HR/SK/BL Stat Lab 08/24/19 17:40 Received Gram Stain Stat Lab 08/24/19 17:40 Results Legionella Antibo dy Stat Lab 08/20/19 09:33 Received Mycobacteria, Cul ture w/Fluor Stat Lab 08/24/19 17:40 Received Cytology [PTH] St at Pth 08/24/19 17:54 Ordered Labs from last 24 hours 08/25/19 08/25/19 08/25/19 03:15 03:15 03:15 WBC 6.9 RBC 3.44 L Hgb 9.5 L Hct 30.2 L MCV 87.8 MCH 27.6 L MCHC 31.5 RDW 15.3 H Plt Count 479 H MPV 8.7 Neut % (Auto) 64.3 Lymph % (Auto) 22.8 Haines % (Auto) 12.0 Eos % (Auto) 0.0 Baso % (Auto) 0.0 Neut # (Auto) 4.4 Lymph # (Auto) 1.6 Haines # (Auto) 0.8 Eos # (Auto) 0.0 Baso # (Auto) 0.0 Nucleated RBC % (a uto) 0 Nucleated RBCs # 0.0 Sodium 137 Potassium 4.4 Chloride 98 Carbon Dioxide 34 H Anion Gap 9.4 BUN 16 Creatinine 0.3 L GFR Calculation 221.2 H Glucose 112 H Calcium 9.4 Total Bilirubin 0.2 AST 21 ALT 13 Alkaline Phosphata se 53 Lactate Dehydrogen ase 152 Total Protein 5.6 L Albumin 3.0 L Globulin 2.6 Pleural Color Pleural Appearance Pleural pH Pleural WBC Pleural Total Prot ein Pleural Albumin Pleural LDH Pleural Glucose Path Cons w/Slide 08/24/19 17:40 WBC RBC Hgb Hct MCV MCH MCHC RDW Plt Count MPV Neut % (Auto) Lymph % (Auto) Haines % (Auto) Eos % (Auto) Baso % (Auto) Neut # (Auto) Lymph # (Auto) Haines # (Auto) Eos # (Auto) Baso # (Auto) Nucleated RBC % (a uto) Nucleated RBCs # Sodium Potassium Chloride Carbon Dioxide Anion Gap BUN Creatinine GFR Calculation Glucose Calcium Total Bilirubin AST ALT Alkaline Phosphata se Lactate Dehydrogen ase Total Protein Albumin Globulin Pleural Color Slight pink Pleural Appearance Bloody Pleural pH 7.50 Pleural WBC Spring Assembler Supervisor Pleural Total Prot ein 2.4 Pleural Albumin 1.5 Pleural LDH 93 Pleural Glucose 129.0 Path Cons w/Slide Yes Vitals: Last Vital Signs Temp 97.8 F 08/25/19 07:53 Pulse 93 08/25/19 08:18 Resp 20 H 08/25/19 08:18 BP 114/60 08/25/19 07:53 Pulse Ox 97 08/25/19 08:18 Discharge Plan Discharge Patient Disposition: Home, Self-Care Condition: Stable Prescriptions: New doxycycline monohydrate 100 mg Tablet 100 mg PO BID 7 Days Qty: 14 RF: 0 metoprolol tartrate 25 mg Tablet 25 mg PO BID 30 Days Qty: 60 RF: 0 Mucinex 600 mg Tablet Extended Release 12hr 600 mg PO BID 30 Days Qty: 60 RF: 0 prednisone 10 mg tablet 10 mg PO DIRECTED 25 Days Qty: 25 RF: 0 Continued celecoxib 200 mg capsule 200 mg PO BID RF: 0 Advair Diskus 500-50 mcg/dose Blister With Device 1 inh INHALATION BID RF: 0 aspirin 81 mg Tablet,Chewable 81 mg PO DAILY RF: 0 Ventolin HFA 90 mcg/actuation HFA aerosol inhaler 1 puff INHALATION TID PRN (Reason: Shortness Of Breath) RF: 0 fluticasone propionate 50 mcg/actuation spray,suspension 2 spray INTRANASAL DAILY RF: 0 Spiriva with HandiHaler 18 mcg capsule, w/inhalation device 1 cap INHALATION DAILY RF: 0 levocetirizine 5 mg tablet 5 mg PO DAILY RF: 0 Discontinued Spiriva with HandiHaler 18 mcg capsule, w/inhalation device 1 cap INHALATION ONCE MDD 1 90 Days Qty: 1 RF: 3 Discharge Orders: Discharge Order (Routine); Ordered 08/25/19 Ordered By: Herbie Cifuentes Referrals: [facility] [Outside] Kahlil Joseph MD [Primary Care Provider] - Discharge Diet: Regular Discharge Activity: Resume usual activity Activity Restrictions/Additional Instructions: -Please follow-up with Dr. Negron, pulmonary critical care, 1 to 2 weeks -Please follow-up with with Dr. Negron and primary care for pathology results -Please please follow-up with primary care in 1 to 2 weeks -Please use steroids and doxycycline as prescribed If you have sudden worsening shortness of breath, fevers, chills come back to emergency room Discharge Attestations Time Spent in Discharge Care*: less than 30 min Quality Metrics Clinical Quality Measures During this hospital stay, did patient experience: None Coding Level of Care Code Acute Journeyman Painter for Chg 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
--- NOTE | 2019-08-25 10:25 | PC.SOCIAL ---
IMM update Pg 2 of IMM Given and explained to patient. Verbalized understanding. Copy provided to patient.
--- NOTE | 2019-08-25 11:27 | P.PN_ITS ---
Subjective Subjective: Interval history: The patient was seen and examined this morning. The patient is doing well. No new complaints and the plan is for her to go home today. I have performed a thoracentesis yesterday. The pleural fluid analysis seems to be consistent with a transudative effusion. Of infection. Vitals/I&O/Wt Last Vital Signs Temp 97.8 F 08/25/19 07:53 Pulse 93 08/25/19 08:18 Resp 20 H 08/25/19 08:18 BP 114/60 08/25/19 07:53 Pulse Ox 97 08/25/19 08:18 08/24/19 08/25/19 08/25/19 22:59 06:59 14:59 Intake Total 300 / 780 500 / 500 Balance 300 / 780 500 / 500 Weight last 48 hrs Weight 96 lb 3.2 oz Weight 96 lb 3.2 oz Weight 94 lb Weight 94 lb Physical Exam Narrative: EXAM NARRATIVE: General: Patient is awake alert and oriented, in no distress. Neck: No JVD, no cervical or supraclavicular lymphadenopathy. Respiratory: Inspection: Barrel-shaped chest, no visible deformity, scarring or mass lesion, the thoracentesis site is covered with a bandage Palpation: No tenderness, trachea shifted mildly to the right, reduced chest wall expansion symmetrically bilaterally, reduced vocal fremitus Percussion: Hyperresonance bilaterally both anteriorly and posteriorly Auscultation: Diminished breath sound bilaterally both anteriorly and posteriorly, vesicular breath sounds with prolonged expiration, no crackles,wheezing or rhonchi, reduced vocal resonance bilaterally Cardiovascular: Regular rate and rhythm, S1-S2 present, no murmur, no right ventricular heave, no peripheral edema. Abdomen: Soft, nontender, nondistended, positive bowel sound. No palpable organomegaly. Musculoskeletal: No obvious joint deformity, assessment of gait was not performed Skin: No rash, no evidence of erythema nodosum or multiforme. Neuro: Mental status is normal, no gross cranial nerve deficit, normal motor and coordination. Data Micro: Micro: Microbiology 08/20/19 10:53 Blood Culture - Fi nal Blood NO GROWTH AFTER 5 DAYS 08/20/19 10:47 Blood Culture - Fi nal Blood NO GROWTH AFTER 5 DAYS 08/24/19 17:40 Gram Stain - Final Pleural Fluid Other Data: Other data: Review of the postthoracentesis chest x-ray did not reveal any pneumothorax. I have reviewed the pleural fluid analysis. The cytology data is pending. A&P Assessment and plan (1) Mass of upper lobe of left lung: The left upper lobe lesion is of unclear diagnosis at this point. The left pleural fluid studies consistent with a transudative effusion. I have the cytology data pending which will take about a week to return. During my discussion with the patient and her daughter they have not expressed any inclination to undergo a new invasive procedure to find out what this is. Status: Acute Code(s): R91.8 - Other nonspecific abnormal finding of lung field (2) Pleural effusion: Pleural effusion is secondary to right-sided heart failure. There is no evidence of an infection or changes in the fluid analysis due to malignancy. The patient follow-up with me in 2 weeks time as outpatient. She has chronic hypoxic and hypercapnic respiratory failure from her COPD and I will optimize her therapy. Status: Acute Code(s): J90 - Pleural effusion, not elsewhere classified Attestations Medical Necessity Statement*: The patient is getting discharged today. Coding Level of Care Code Acute Public Speaking Coach for Jihan Jimenes Diagnoses Mass of upper lobe of left lung R91.8 Pleural effusion J90
== END 2019-08-25 12:00 | disposition home or self-care (01) | DRG 193 ==
LOC: ER 11:04 → CSU 12:05
PROVIDERS: Internal Medicine Critical Care Medicine; Admitting Provider Family Medicine; Emergency Provider Emergency Medicine; Family Provider Internal Medicine; PCP Internal Medicine; Visit Provider Family Medicine
DX: J18.9 Pneumonia, unspecified organism (principal); J96.21 Acute and chronic respiratory failure with hypoxia; I21.4 Non-ST elevation (NSTEMI) myocardial infarction; E43 Unspecified severe protein-calorie malnutrition; J96.22 Acute and chronic respiratory failure with hypercapnia; J90 Pleural effusion, not elsewhere classified; J43.9 Emphysema, unspecified; I48.91 Unspecified atrial fibrillation; Z87.891 Personal history of nicotine dependence; Z99.81 Dependence on supplemental oxygen; Z79.82 Long term (current) use of aspirin; Z22.39 Carrier of other specified bacterial diseases; Y95 Nosocomial condition; R91.8 Other nonspecific abnormal finding of lung field
CPT/HCPCS: 36415; 71045; 71260; 80053; 80061; 80202; 80500; 82042; 82274; 82945; 83615; 83735; 83880; 83986; 84100; 84145; 84157; 84443; 84484; 85014; 85018; 85025; 86403; 86713; 87015; 87040; 87070; 87075; 87102; 87116; 87205; 87206; 87641; 87801; 88112; 88305; 89050; 93005; 93306; 94640; 96360; 96365; 96374; 96375; 97165; 99283; J0456; J0696; J1940; J2270; J2543; J2920; J2930; J3370; J3490; J7030; J7050; J7512; J7611; J7626; Q9967

== ENCOUNTER 2019-08-21 10:20 | Outpatient (RCR) | payer MEDICARE, MEDICAID, SELFPAY | END 2019-09-15 23:59 | disposition home or self-care (01) | LOC: PULRHB 10:20 | PROVIDERS: Family Provider Internal Medicine; PCP Internal Medicine; Visit Provider Internal Medicine | DX: Z76.89 Persons encountering health services in other specified circumstances (principal) ==

== ENCOUNTER 2019-09-15 08:46 | Outpatient (CLI) | payer MEDICARE, MEDICAID, SELFPAY ==
--- NOTE | 2019-09-15 09:00 | CT_ITS ---
WS: [id number] CT CHEST WITHOUT INTRAVENOUS CONTRAST HISTORY: RADHA mass TECHNIQUE: Contiguous 5 mm axial imaging performed on the thorax. Coronal and sagittal reformats are submitted. All CT scans at [facility] use at least one of these dose optimization techniq ues: automated exposure control; mA and/or kV adjustment per patient size (includes targeted exams wh ere dose is matched to clinical indication); or iterative reconstruction. CONTRAST: None DLP: 539.61 mGycm COMPARISON: 08/21/2019, 06/28/2019 and 03/13/2015 Lungs and central airway: Severe bullous and centrilobular emphysematous changes. Marked pulmonary hy perexpansion. Extensive bullous and bleb formation predominantly in the upper lobes. Significant impr ovement in aeration in the lower lungs as compared to 08/21/2019 and 06/28/2019. Area of linear atelect asis in the LEFT lower lobe. No persistent pulmonary nodule in the LEFT lower lobe as described on . Cavitary lesion with asymmetric wall thickening in the LEFT upper lobe has slightly improve d. There is less wall thickening. There is adjacent extensive bronchiectasis with pleural thickening and traction. Biapical pleural thickening and scarring is unchanged. Pleura: Small pleural effusion described in the LEFT thorax on 08/21/2019 has resolved. RIGHT pleural e ffusion has also resolved. Heart and pericardium: Normal size heart. No pericardial effusion. Mediastinum and rula: Mediastinum and hilar lymph nodes would be difficult to visualize without IV co ntrast. There is extensive calcified adenopathy which is benign. Vessels: Moderate atherosclerosis aorta. Pulmonary artery size is enlarged. Chest wall and lower neck: No soft tissue masses. Upper abdomen: Atherosclerosis of aorta. Nonobstructing calcifications within each kidney. Osseous structures: Vertebral compression fractures with vertebroplasties at T11, T12, L1, L2 and L3. Mild anterior wedging of T6 is stable. CT/CT chest wo con [id number] IMPRESSION: 1. Severe bullous emphysematous changes. 2. Decrease in size of the cavitary lesion with asymmetric wall thickening in the LEFT upper lobe. Overall improvement in aeration throughout both lungs and the cavitary lesion is also improving. Suspect these changes are all related to pneumonia. [address] follow-up is recommended. 3. Resolved bilateral pleural effusions. 4. Multiple vertebroplasties and prior compression fractures. 5. Pulmonary hypertension. 6. LEFT lower lobe pulmonary nodule described on 06/28/2019 is not identified.
== END 2019-09-15 08:47 | disposition home or self-care (01) ==
LOC: RADWPI 08:52
PROVIDERS: Family Provider Internal Medicine; PCP Internal Medicine; Visit Provider Internal Medicine Critical Care Medicine
DX: R91.8 Other nonspecific abnormal finding of lung field (principal); I27.20 Pulmonary hypertension, unspecified; R91.1 Solitary pulmonary nodule
CPT/HCPCS: 71250

== ENCOUNTER 2019-10-16 08:10 | Outpatient (CLI) | payer MEDICARE, MEDICAID, SELFPAY ==
--- NOTE | 2019-10-16 11:00 | PFTS_ITS ---
Date of Study:10/16/2019 Date of Dictation: MECHANICS: Forced vital capacity (FVC) is reduced.. Forced expiratory volume in one second (FEV1) is reduced. FEV1/FVC is reduced. FLOW VOLUME LOOP: Reduced flow at all lung volumes with significant scooping. LUNG VOLUMES: Total lung capacity (TLC) is normal. Residual volume (RV) is increased. DIFFUSING CAPACITY FOR CARBON MONOXIDE: Severely reduced. Not corrected for hemoglobin. INTERPRETATION: The pulmonary function tests are consistent with very severe airflow obstruction. There is evidence of air trapping without any hyperinflation. Gas exchange (DLCO) is severely reduced. MTDD
== END 2019-10-16 08:11 | disposition home or self-care (01) ==
PROVIDERS: Family Provider Internal Medicine; PCP Internal Medicine; Visit Provider Internal Medicine Critical Care Medicine
DX: J44.9 Chronic obstructive pulmonary disease, unspecified (principal); F17.210 Nicotine dependence, cigarettes, uncomplicated
CPT/HCPCS: 94010; 94060; 94726; 94729

== ENCOUNTER 2020-01-11 08:10 | Inpatient (IN) | payer MEDICARE, MEDICAID, SELFPAY ==
[2020-01-11] VITALS (12 sets, daily range): BP systolic 91–132; BP diastolic 52–77; PULSE 95–140; RESP 16–28; TEMP 36.5–36.8; O2SAT 90–98; BMI 16.9
[2020-01-11] MEDS: sodium chloride 0.9% 1,000 ML 999 ML IV (08:14)
--- NOTE | 2020-01-11 08:14 | ECG_ITS ---
Measurements Intervals [place] Rate: 134 P: 78 LA: 127 QRS: 84 QRSD: 92 T: 61 QT: 279 QTc: 417 SINUS TACHYCARDIA ABNORMAL RHYTHM ECG Compared to ECG 08/20/2019 20:28:44 No significant changes Electronically Signed On 01-11-2020 11:47:42 CDT by Jay Stark M.D. [email or web address]
--- NOTE | 2020-01-11 08:14 | XR_ITS ---
WS: [id number] PORTABLE CHEST HISTORY: sob COMPARISON: 08/25/2019 Hyperexpanded lungs. Severe emphysematous changes. Bulla and bleb formation at the apices. Thick wall ed bulla in the LEFT upper lobe. Increasing thickness of the wall surrounding the bulls. Mild bluntin g of the costophrenic angles. Cardiac size: Normal. Mediastinum/Aorta: Mild atherosclerosis aorta. Osteopenia. Multiple vertebroplasties are present at the thoracolumbar junction. XR/XR chest 1V portable [id number] IMPRESSION: 1. Severe chronic emphysema. 2. Increasing opacifications in the upper lung marquis may. May be progression o f pleural fibrosis. Pneumonitis not excluded.
--- NOTE | 2020-01-11 08:15 | W.ED.SOB ---
HPI - SOB/Dyspnea General: Chief Complaint: Shortness of Breath/Dyspnea Stated Complaint: RESP DISTRESS Time Seen by Provider: 01/11/20 08:10 Source: patient and EMS Mode of arrival: EMS Limitations: no limitations History of Present Illness: HPI Narrative: 69-year-old female with a history of COPD states she has had increasing shortness of breath along with a productive cough over the last 2 days. She states cough is with green sputum. She is on 2 L of oxygen at home is currently 97% on 2 L. She denies any fever or chest pain. She is tachycardic but is received multiple treatments today. MD elicited complaint: shortness of breath and cough Pertinent past history: COPD Onset (ago): day(s) Timing: constant Severity: moderate Exacerbating factors: nothing Relieving factors: nothing Associated symptoms: Deny abdominal pain, chest pain, fever(s), nausea or vomiting Review of Systems Const: Denies: fever(s), chills, body aches or change in appetite Eyes: Denies: blurry vision or eye discomfort ENMT: Denies: throat pain or dental pain Card: Denies: chest pain Resp: Reports: dyspnea and wheezing GI: Denies: abdominal pain, nausea, vomiting or diarrhea : Denies: dysuria Musc: Denies: neck pain or back pain Skin/Breast: Denies: rash Neuro: Denies: headache(s) Psych: Denies: depression Ronen/Lymph: Denies: easy bruising All/Imm: Denies: urticaria PFSH ED PFSH: Medical History Acute on chronic respiratory failure with hypoxia and hypercapnia COPD (chronic obstructive pulmonary disease) Mass of upper lobe of left lung Pleural effusion Pseudomonas aeruginosa colonization Pulmonary hypertension Severe protein-calorie malnutrition Surgical History History of back surgery Family History Mother CAD (coronary artery disease) Social History Smoking and tobacco status: former smoker Quit status (tobacco): has quit using tobacco Year quit tobacco: 2019 - 1PPD x 50 Years Alcohol intake: never Lives independently: Yes Household members: none Marital status: Current occupational status: retired History of recent travel: No Current gender identity: Female Physical Exam Const: COMMON NORMALS: no acute distress, patient oriented x3 and healthy appearing HENMT: COMMON NORMALS: normocephalic and atraumatic HEAD & SCALP: normocephalic and atraumatic Eye: COMMON NORMALS: Equal, round and reactive pupils present and EOMs intact bilaterally PUPIL: Yes Equal, round and reactive pupils present Neck/C-Spine: COMMON NORMALS: full ROM and supple Chest: COMMONS NORMALS: normal inspection of the chest and normal palpation of entire chest wall Resp: COMMON NORMALS: normal respiratory effort, No retractions, No use of accessory muscles and clear to auscultation bilaterally EFFORT & INSPECTION: Yes tachypneic, Yes respiratory distress and Yes retractions AUSCULTATION: clear to auscultation bilaterally and wheezes Cardio: COMMON NORMALS: regular rate, regular rhythm and No murmurs present (Cardio) RATE: regular rate RHYTHM: regular rhythm GI: COMMON NORMALS: Normal to inspection, nondistended, normoactive bowel sounds present, Soft to palpation, non-tender and no masses PALPATION: Yes Soft to palpation Extremity: COMMON NORMALS: normal to inspection and full ROM Neuro: COMMON NORMALS: patient oriented x3, moves all extremities and no focal motor deficits Psych: COMMON NORMALS: mental status grossly normal, Normal thought process present and cooperative THOUGHT PROCESS: Normal thought process present Skin: COMMON NORMALS: no rashes or lesions noted and no wounds GENERAL SKIN EXAM: no rashes or lesions noted Course Vital Signs: Vital signs: Vital Signs Temperature 98.3 F 01/11/20 08:10 Pulse Rate 122 H 01/11/20 11:00 Respiratory Rate 22 H 01/11/20 11:00 Blood Pressure 104/60 01/11/20 11:00 Pulse Oximetry 97 01/11/20 11:00 MDM - SOB/Dyspnea MDM Narrative: Medical decision making narrative: Marie presents here with cough along with productive cough since the last 2 days. She is requiring increased oxygen has been tachycardic here. Patient has no signs of sepsis and CT showed no signs of pulmonary embolism but does show a possible pneumonia. Patient given breathing treatments here and started on antibiotics. I spoke to hospitalist and will admit as well. Patient had Solu-Medrol in route. Lab Data: Labs: Lab Results 01/11/20 01/11/20 01/11/20 Range/Units 08:41 08:41 09:00 WBC 7.5 (4.0-10.0) 10^3/ uL RBC 3.87 L (4.1-5.3) 10^6/u L Hgb 10.3 L (11.5-15.3) g/dL Hct 34.5 L (37.0-47.0) % MCV 89.1 (81-99) fL MCH 26.6 L (28.0-34.0) pg MCHC 29.9 L (30.0-36.0) g/dL RDW 15.2 H (12.1-15.1) % Plt Count 306 (130-400) 10^3/c mm MPV 9.4 (7.4-10.4) fL Neut % (Auto) 60.1 % Lymph % (Auto) 13.0 % [place] % (Auto) 25.3 % Eos % (Auto) 0.5 % Baso % (Auto) 0.8 % Neut # (Auto) 4.5 (1.8-7.7) 10^3/u L Lymph # (Auto) 1.0 (0.8-4.8) 10^3/u L [place] # (Auto) 1.9 H (0.2-0.9) 10^3/u L Eos # (Auto) 0.0 (0.0-0.8) 10^3/u L Baso # (Auto) 0.1 (0.0-0.1) 10^3/u L Nucleated RBC % (a uto) 0 % Nucleated RBCs # 0.0 /100WBC Specimen Type Arterial Sample Site Brachial, right ABG pH 7.24 L (7.35-7.45) ABG pCO2 68.9 H* (35-45) mmHg ABG pO2 85.5 (80.0-100.0) mmH g ABG HCO3 29.7 H (22-26) mmol/L ABG Base Excess 1.1 (-2.0-2.0) mmol/ L Nikolas Test Pos Hematocrit 32.7 L (37-47) % Hgb O2 Saturation 92.1 L (95-100) % Carboxyhemoglobin 2.8 (0.4-20.1) %THgb Methemoglobin 1.0 (0.4-1.5) % Total Hemoglobin 10.7 L (12-16) g/dL O2 Delivery Device Nc O2 Liters/Min 2.0 % FiO2 28.0 % [place] Operator ID bd Sodium 137 (136-145) mmol/L Potassium 4.7 (3.5-5.1) mmol/L Chloride 99 (98-107) mmol/L Carbon Dioxide 28 (22-29) mmol/L Anion Gap 14.7 (5-19) BUN 15 (8-23) mg/dL Creatinine 0.3 L (0.5-0.9) mg/dL GFR Calculation 221.2 H (90-130) mL/min Glucose 103 (65-115) mg/dL Calculated Osmolal ity 281 L (285-295) mOsm/k g Calcium 8.9 (8.5-10.5) mg/dL Total Bilirubin 0.3 (0.15-1.2) mg/dL AST 14 (0-32) U/L ALT < 5 (0-33) U/L Alkaline Phosphata se 61 (35-105) IU/L NT-Pro-B Natriuret Pep 167 H (0-125) pg/mL Total Protein 6.8 (6.6-8.7) g/dL Albumin 3.2 L (3.5-5.2) g/dL Globulin 3.6 (1.3-4.6) g/dL Imaging Data^: CXR: Attestation: I personally reviewed and interpreted this imaging study as follows: Radiologist's impression: [address] [address] XRay Report Signed Patient: Marie Hull Unit #: [id number] : [id number] Age/Sex: 69 / F ADM Date: 01/11/20 Loc: ER Room/Bed: Attending Dr: Ordering Provider/Ordering MD: Faiza Smallwood MD Date of Service: 01/11/20 Procedure(s): XR chest 1V portable [id number] Accession Number(s): [id number] Report Number: [id number] WS: [id number] PORTABLE CHEST HISTORY: sob COMPARISON: 08/25/2019 Hyperexpanded lungs. Severe emphysematous changes. Bulla and bleb formation at the apices. Thick walled bulla in the LEFT upper lobe. Increasing thickness of the wall surrounding the bulls. Mild blunting of the costophrenic angles. Cardiac size: Normal. Mediastinum/Aorta: Mild atherosclerosis aorta. Osteopenia. Multiple vertebroplasties are present at the thoracolumbar junction. XR/XR chest 1V portable [id number] IMPRESSION: 1. Severe chronic emphysema. 2. Increasing opacifications in the upper lung marquis may. May be progression of pleural fibrosis. Pneumonitis not excluded. EKG Data^: EKG 1: Attestation: I personally reviewed and interpreted this EKG as follows: EKG Interpretation Date: 01/11/20 EKG interpretation time: 08:50 Interpretation: sinus tachycardia hr [address] or t wave abnormalities qrs 92 qtc 358 Discharge Plan Discharge Patient Disposition: Admitted As Inpatient Clinical Impression: COPD (chronic obstructive pulmonary disease) Qualifiers: COPD type: COPD with acute exacerbation Qualified Code(s): J44.1 - Chronic obstructive pulmonary disease with (acute) exacerbation Condition: Stable Referrals: Kahlil Joseph MD [Primary Care Provider] - Coding Level of Care Code ED Copy Camera Operator for Chg Fwd Exam Comprehensive
[2020-01-11 08:49] LABS: Basophils # 0.1 10^3/uL (0.0-0.1); Basophils % 0.8 %; Eosinophils % 0.5 %; Hematocrit 34.5 % (37.0-47.0); Hemoglobin 10.3 g/dL (11.5-15.3); Mean Corpuscular HGB Conc 29.9 g/dL (30.0-36.0); Mean Corpuscular Hemoglobin 26.6 pg (28.0-34.0); Mean Corpuscular Volume 89.1 fL (81-99); Mean Platelet Volume 9.4 fL (7.4-10.4); Monocytes # 1.9 10^3/uL (0.2-0.9); Monocytes % 25.3 %; Neutrophils # 4.5 10^3/uL (1.8-7.7); Neutrophils % 60.1 %; Nucleated Red Blood Cells % 0 %; Platelet Count 306 10^3/cmm (130-400); Red Blood Count 3.87 10^6/uL (4.1-5.3); Red Cell Distribution Width 15.2 % (12.1-15.1); White Blood Count 7.5 10^3/uL (4.0-10.0)
[2020-01-11 09:09] LABS: ABG PH Result 7.24 (7.35-7.45); Arterial Blood Gas Hematocrit 32.7 % (37-47); Base Excess ABG 1.1 mmol/L (-2.0-2.0); Blood Gas Allen Test Pos; Blood Gas Sample Site Brachial, right; Blood Gas Sample Type Arterial; Carboxyhemoglobin 2.8 %THgb (0.4-20.1); HCO3 ABG 29.7 mmol/L (22-26); HGB O2 Sat 92.1 % (95-100); Oxygen Device NC; PO2 ABG 85.5 mmHg (80.0-100.0); Total Hemoglobin 10.7 g/dL (12-16)
[2020-01-11 09:10] LABS: ABG PCO2 68.9 mmHg (35-45)
[2020-01-11 09:20] LABS: Alanine Aminotransferase < 5 U/L (0-33); Albumin Level 3.2 g/dL (3.5-5.2); Alkaline Phosphatase 61 IU/L (35-105); Anion Gap 14.7 (5-19); Aspartate Amino Transferase 14 U/L (0-32); Blood Urea Nitrogen 15 mg/dL (8-23); Calcium 8.9 mg/dL (8.5-10.5); Carbon Dioxide 28 mmol/L (22-29); Chloride 99 mmol/L (98-107); Globulin 3.6 g/dL (1.3-4.6); Glomerular Filtration Rate 221.2 mL/min (90-130); Glucose 103 mg/dL (65-115); NT Pro B Type Natriuretic Pept 167 pg/mL (0-125); Osmolality Calculated 281 mOsm/kg (285-295); Potassium 4.7 mmol/L (3.5-5.1); Sodium 137 mmol/L (136-145); Total Bilirubin 0.3 mg/dL (0.15-1.2); Total Protein 6.8 g/dL (6.6-8.7)
[2020-01-11] MEDS: LORazepam 2 mg/mL INJ 1 mL 0.5 MG IVP (09:37)
--- NOTE | 2020-01-11 09:42 | CT_ITS ---
WS: [id number] CT CHEST ANGIOGRAPHY WITH REFORMATS HISTORY: sob TECHNIQUE: Contiguous axial images are obtained through the chest during arterial injection of intrav enous contrast. Images are reconstructed to evaluate the pulmonary arteries. MIP imaging also reviewe d. All CT scans at [facility] use at least one of these dose optimization techniques: aut omated exposure control; mA and/or kV adjustment per patient size (includes targeted exams where dose is matched to clinical indication); or iterative reconstruction. CONTRAST: Omnipaque 350; 95 mL IV. DLP: 390.34 mGy.cm COMPARISON: 09/15/2019 Excellent opacification of the pulmonary artery. Pulmonary artery is enlarged with no filling defects or pulmonary emboli. Mild atherosclerosis of the thoracic aorta. No aneurysm. Severe emphysema. Large bulla and bleb formations are present greatest in the upper lung marquis with areas of scarring. Progression of pleural thickening and soft tissue opacification in the upper lung marquis. Thickening of the wall surrounding the LEFT upper lobe length. Slight atelectasis and pleural thickening at the LEFT lung base. No pleural effusion. No pericardial effusion. There is significant mediastinal and hilar soft tissue which is probably adenopathy. The largest clus ter is subcarinal measuring 3.3 x 1.4 cm. Soft tissue thickening at the hilar regions with the larges t lymph node on the LEFT measuring 1.0 cm. Small amount of fluid in the distal esophagus. Severe osteopenia. RIGHT convex curvature of the thoracic spine. Prior vertebroplasties at T11, T12, L1, L2 and L3. Mild compression fracture at T6 is stable. CT/CT angio chest PE protcl [id number] IMPRESSION: 1. No pulmonary emboli. 2. Severe bullous emphysema. 3. Increase in the soft tissue stranding and pleural thickening at the apices bilaterally with indeterminate mediastinal and hilar lymph nodes. Favor this is probably a response and acute inflammatory/infectious process. Recommend follo w-up to resolution to be sure the pleural thickening and wall thickening around the cavitary lesion in the LEFT upper lobe resolve and do not progress.
[2020-01-11] MEDS: iohexol 350 mg/mL 100 mL Btl IV (10:19)
[2020-01-11] MEDS: azithromycin 500 MG in sodium chloride 0.9% 250 ML 250 MG IV (10:54)
--- NOTE | 2020-01-11 11:40 | P.HP_ITS ---
Providers/Chief Complaint Admitting Physician: Galina Lew DO Primary Care Provider: Kahlil Joseph MD Chief Complaint: RESP DISTRESS History of Present Illness Marie Hull is a 69 year old female with a past medical history of COPD that presented to the emergency department for shortness of breath. Patient's family reported that she has been increasingly short of breath with a productive cough over the past 2 days. Patient has had end-stage COPD for some time, followed by pulmonology. Patient has family member with her at bedside, she denies any public exposure, the patient is only been out of her home over the weekend to deliver spivey to [employer]. No other public contact, no exposure to any persons under investigation or positive patients for CO VID-19. Patient was seen and evaluated in the emergency department noted to have concern for COPD with acute exacerbation with concern for developing pneumonia and was admitted to the hospital for further evaluation and treatment. Patient was noted to be somewhat anxious on admission given Ativan and has been somewhat sleepy since that time. Due to this medication side effect it was difficult to obtain HPI from patient, therefore HPI was obtained from patient's daughter at bedside. Review of Systems General: Reports: ROS unobtainable due to mental status Medications/Allergies Home Medications Medication Instructions Recorded Confirmed Last Taken Type Spiriva with HandiHaler 1 cap INHALATION DAILY 08/20/19 01/11/20 01/11/20 His tory aspirin 81 mg PO DAILY 08/20/19 01/11/20 01/10/20 History fluticasone propionate 50 2 spray INTRANASAL DAILY PRN 11/23/19 01/11/20 Unknown History mcg/actuation nasal spray,suspension albuterol sulfate 90 mcg/actuation 1 puff INHALATION TID PRN #18 gm 12/13/19 01/11/20 01/11/20 Rx aerosol inhaler celecoxib 200 mg capsule 200 mg PO BID #60 cap 12/13/19 01/11/20 01/11/20 Rx fluticasone 100 mcg-salmeterol 50 1 inh INHALATION Q12H #60 each 01/02/20 01/11/20 01/11/20 Rx mcg/dose blistr powdr for inhalation levocetirizine 5 mg tablet 5 mg PO DAILY #30 tab 01/02/20 01/11/20 01/11/20 Rx Allergies Allergy/AdvReac Type Severity Reaction Status Date / Time levofloxacin [From Levaquin] AdvReac Intermediate ADR-Dizzine Verified 11/23/19 09:38 ss PFSH Acute PFSH: Medical History (Updated 01/11/20 @ 11:52 by Galina Lew DO) Acute on chronic respiratory failure with hypoxia and hypercapnia Atrial fibrillation COPD (chronic obstructive pulmonary disease) Mass of upper lobe of left lung Pleural effusion Pseudomonas aeruginosa colonization Pulmonary hypertension Severe protein-calorie malnutrition Surgical History History of back surgery Family History Mother CAD (coronary artery disease) Social History Smoking and tobacco status: former smoker Quit status (tobacco): has quit using tobacco Year quit tobacco: 2019 - 1PPD x 50 Years Alcohol intake: never Lives independently: Yes Household members: none Marital status: Current occupational status: retired History of recent travel: No Current gender identity: Female Vitals/I&O/Wt Last Vital Signs Temp 98.3 F 01/11/20 08:10 Pulse 126 H 01/11/20 11:06 Resp 24 H 01/11/20 11:06 BP 104/60 01/11/20 11:00 Pulse Ox 98 01/11/20 11:06 01/10/20 01/11/20 01/11/20 22:59 06:59 14:59 Intake Total 1000 / 1000 Balance 1000 / 1000 Weight last 48 hrs Weight 42.184 kg Physical Exam Const: GENERAL APPEARANCE: cooperative ORIENTATION/CONSCIOUSNESS: Yes lethargic HENMT: COMMON NORMALS: normocephalic and atraumatic HEAD & SCALP: normocephalic and atraumatic Eye: COMMON NORMALS: Equal, round and reactive pupils present PUPIL: Yes Equal, round and reactive pupils present Neck/C-Spine: COMMON NORMALS: supple GENERAL: Yes normal visual inspection Resp: COMMON NORMALS: No use of accessory muscles EFFORT & INSPECTION: Yes symmetric chest movement, Yes tachypneic and Yes uses accessory muscles AUSCULTATION: no rhonchi and wheezes throughout Cardio: COMMON NORMALS: regular rhythm and No murmurs present (Cardio) RATE: tachycardic RHYTHM: regular rhythm GI: COMMON NORMALS: Soft to palpation and non-tender INSPECTION: No abdominal distension AUSCULTATION: Yes normoactive bowel sounds PALPATION: Yes Soft to palpation : COMMON NORMALS: Yes no CVA tenderness BLADDER/KIDNEY EXAM: Yes no CVA tenderness Back/Pelvis: COMMON NORMALS: no CVA tenderness Extremity: COMMON NORMALS: no clubbing, cyanosis or edema and no calf tenderness Neuro: COMMON NORMALS: patient oriented x3, CN's II-XII intact bilaterally, moves all extremities and no focal motor deficits SENSORIUM/ORIENTATION: Yes alert, Yes oriented to person, Yes oriented to place and Yes oriented to time SPEECH: speech normal Psych: COMMON NORMALS: mental status grossly normal and cooperative Skin: COMMON NORMALS: no rashes or lesions noted GENERAL SKIN EXAM: no rashes or lesions noted Data : 01/11/20 08:41 01/11/20 08:41 Micro: Microbiology 01/11/20 11:08 Blood Culture - Preliminary Blood SPECIMEN COLLECTED 01/11/20 08:41 Blood Culture - Preliminary Blood SPECIMEN COLLECTED CTA Chest: I personally reviewed and interpreted this imaging study as follows: Radiologist's impression: IMPRESSION: 1. No pulmonary emboli. 2. Severe bullous emphysema. 3. Increase in the soft tissue stranding and pleural thickening at the apices bilaterally with indeterminate mediastinal and hilar lymph nodes. Favor this is probably a response and acute inflammatory/infectious process. Recommend follow- up to resolution to be sure the pleural thickening and wall thickening around the cavitary lesion in the LEFT upper lobe resolve and do not progress. CXR: I personally reviewed and interpreted this imaging study as follows: Radiologist's impression: IMPRESSION: 1. Severe chronic emphysema. 2. Increasing opacifications in the upper lung marquis may. May be progression of pleural fibrosis. Pneumonitis not excluded. A&P Assessment and plan (1) Acute on chronic respiratory failure with hypoxia and hypercapnia: Patient has end-stage COPD, is on 2 L of oxygen by nasal cannula at baseline along with home trilogy at night Patient follows with pulmonology, Dr. Negron Continue with respiratory therapy to assess and treat, oxygen per protocol Continue with home trilogy settings Due to Pseudomonas colonization will double coverage for Pseudomonas at this time Status: Acute (2) Severe chronic obstructive pulmonary disease: Further plan as above. Continue with home oxygen with goal oxygen saturation 90 to 92% to continue with home trilogy settings Status: Acute (3) Pseudomonas aeruginosa colonization: Concern for pneumonitis with developing pneumonia, will continue with double coverage for Pseudomonas at this time and monitor cultures Status: Acute (4) Severe protein-calorie malnutrition: Status: Acute (5) Pulmonary hypertension: Status: Acute (6) Mass of upper lobe of left lung: Patient had CTA of the chest which showed cavitary lesion of the left upper lobe, will discuss further with pulmonology. Patient has had follow-up in the outpatient setting as well as with prior thoracentesis. In the past family had elected to hold off on any type of invasive procedure but there was concern at the time of a mass in the left lung Status: Acute Additional A&P Information Sinus tachycardia with a history of atrial fibrillation: No longer on beta- kyrie according to family, however they are going to check with primary care provider. This may be associated with albuterol treatments and Solu-Medrol the patient received in the ED. We will continue to monitor closely on telemetry. CTA negative for pulmonary embolus. Consider recent starting beta-kyrie if in dicated. Will check serial EKG and Troponin Chronic anemia: Normocytic, patient's hemoglobin at 10.3 today, this is improved from prior admissions with no evidence of any active bleeding. 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 Unable to discuss with patient due to her being somewhat sedated after administration of Ativan Attestations Medical Necessity Statement*: Patient requires hospitalization due to acute COPD exacerbation, expected stay greater than 2 midnights Coding Level of Care Code Acute Rounding And Backing Machine Operator for g Fwd Exam Comprehensive Diagnoses Acute on chronic respiratory failure with hypoxia and hypercapnia J96.21; J96.22 Severe chronic obstructive pulmonary disease J44.9 Pseudomonas aeruginosa colonization Z22.39 Severe protein-calorie malnutrition E43 Pulmonary hypertension I27.20 Mass of upper lobe of left lung R91.8
--- NOTE | 2020-01-11 12:28 | PC.NURSE ---
NC NC applied orally due to patient oral breathing while sleeping. Patient resting much easier
--- NOTE | 2020-01-11 13:00 | PC.NURSE ---
Report received from Kate CAMERON in the ER. Patient came in today with respiratory distress. Patient normally uses 2 liters of oxygen at home and Trilogy at night. Patient had an increase in shortness of breath last night and was unable to sleep at all. Patient has a # 20 gauge IV in her left hand that is PIID. Blood cultures were drawn in the ER. Patient received a total of 3 breathing treatments. Zithromax was given as well as Ativan. Patient was also given 1 liter of fluid.
[2020-01-11] MEDS: cefTRIAXone 1,000 MG in sodium chloride 0.9% (plus) 50 ML 100 MG IV (13:16)
[2020-01-11] MEDS: cefepime 1,000 MG in sodium chloride 0.9% (plus) 50 ML 100 MG IV (14:10)
[2020-01-11] MEDS: enoxaparin 40 mg/0.4 mL Syringe SUBCUT (14:11)
--- NOTE | 2020-01-11 15:09 | ECG_ITS ---
Measurements Intervals [place] Rate: 115 P: NC: 0 QRS: 77 QRSD: 98 T: 61 QT: 313 QTc: 433 Sinus tachycardia with frequent PACs ABNORMAL RHYTHM ECG INTERPRETATION BASED ON A DEFAULT AGE OF 40 YEARS Compared to ECG 01/11/2020 08:37:10 No change Electronically Signed On 01-11-2020 16:48:48 CDT by Jay Stark M.D. [email or web address]
[2020-01-11] MEDS: ciprofloxacin 400 MG/200 ML PREMIX 200 MG IV ×2 (15:10→21:25)
[2020-01-11] MEDS: albuterol 8 gm MDI 1 PUFF INHALATION ×2 (16:23→20:03)
[2020-01-11 20:38] LABS: Troponin(5th) Baseline 20 ng/mL (0-10)
--- NOTE | 2020-01-11 21:09 | ECG_ITS ---
Measurements Intervals [place] Rate: 102 P: 75 CT: 155 QRS: 80 QRSD: 93 T: 74 QT: 331 QTc: 431 SINUS TACHYCARDIA ABNORMAL RHYTHM ECG Compared to ECG 01/11/2020 16:28:43 No significant changes Electronically Signed On 01-12-2020 19:01:23 CDT by Guilherme Ibrahim M.D. [email or web address]
[2020-01-11] MEDS: CELEcoxib 200 mg Capsule PO (21:25)
[2020-01-11 22:11] LABS: Troponin 5 2HR 20.93 ng/mL (0-10); Troponin 5 2HR Delta 0.93 ABS# (0-10)
[2020-01-12] VITALS (9 sets, daily range): BP systolic 102–120; BP diastolic 58–68; PULSE 101–118; RESP 16–18; TEMP 36.5–36.9; O2SAT 89–96; BMI 18.8
[2020-01-12] MEDS: cefepime 1,000 MG in sodium chloride 0.9% (plus) 50 ML 100 MG IV ×2 (00:58→13:51)
[2020-01-12 02:44] LABS: Basophils % 0.2 %; Hematocrit 30.8 % (37.0-47.0); Hemoglobin 9.1 g/dL (11.5-15.3); Lymphocytes # 0.5 10^3/uL (0.8-4.8); Lymphocytes % 8.8 %; Mean Corpuscular HGB Conc 29.5 g/dL (30.0-36.0); Mean Corpuscular Hemoglobin 26.4 pg (28.0-34.0); Mean Corpuscular Volume 89.3 fL (81-99); Mean Platelet Volume 9.9 fL (7.4-10.4); Monocytes # 0.4 10^3/uL (0.2-0.9); Monocytes % 6.8 %; Neutrophils # 4.8 10^3/uL (1.8-7.7); Neutrophils % 83.8 %; Nucleated Red Blood Cells % 0 %; Platelet Count 313 10^3/cmm (130-400); Red Blood Count 3.45 10^6/uL (4.1-5.3); Red Cell Distribution Width 15.2 % (12.1-15.1); White Blood Count 5.7 10^3/uL (4.0-10.0)
[2020-01-12 02:47] LABS: Anion Gap 10.6 (5-19); Blood Urea Nitrogen 14 mg/dL (8-23); Carbon Dioxide 31 mmol/L (22-29); Chloride 99 mmol/L (98-107); Glomerular Filtration Rate 220.6 mL/min (90-130); Glucose 121 mg/dL (65-115); Osmolality Calculated 279 mOsm/kg (285-295); Potassium 4.6 mmol/L (3.5-5.1); Sodium 136 mmol/L (136-145)
[2020-01-12 02:52] LABS: Troponin 5 6HR 20.97 ng/mL (0-10)
[2020-01-12 02:53] LABS: Troponin 5 6HR Delta 0.97 ng/L (0-12)
[2020-01-12] MEDS: ciprofloxacin 400 MG/200 ML PREMIX 200 MG IV ×3 (04:22→21:35)
[2020-01-12] MEDS: albuterol 8 gm MDI 1 PUFF INHALATION (08:41)
[2020-01-12] MEDS: aspirin 81 mg Chew Tablet PO (09:14)
[2020-01-12] MEDS: CELEcoxib 200 mg Capsule PO ×2 (09:14→17:41)
--- NOTE | 2020-01-12 10:48 | PC.CHAP ---
Pastoral Care Encounter/Spiritual Assessment Type of Contact [] Declined state pilot visit [] Patient/Family/Request visit [] Outpatient visit [] Follow-up visit [] Physician referral [] Code/Alert [x] Routine visit [] Staff referral [] Actively dying [] Patient sleeping [] Family support [] [] Out of room [] Palliative care [] [] Receiving care in room [] Pre-surgical visit [] Trauma [] Long length of stay [] ICU visit [] Other: Relational/Emotional Strength [] Patient feels connected with others/family/visitors/staff [] Distress [] Loneliness/isolation [] Abandonment Spirituality of Patient [] Person of Valerie [] Attends [employer]beterian of their Valerie [] Believes in Prayer [] Reads Bible or Congregation materials [] There are Spiritual issues to be addressed Dovetailer Interventions [x] Prayer [] Active listening [] Non-anxious presence [] Spiritual/emotional support [] Crisis/trauma care [] Spiritual counseling [] Bereavement support [] Provided bereavement packet [] Provided Bible/devotional materials [] Provided toy/stuffed animal, coloring book to patient or family member [] Provided Communion [] Anointing/[place] [] Salvation [x] Completed spiritual assessment [] Other: Impact on Illness or Injury [] Angry [] Fearful [] Anxious [] Often cries [] Exhaustion [] Unable to work [] Unable to attend tenriism [] Unable to walk/stand [] Unable to read [] Unable to drive [] Unable to eat/drink [] Unable to sleep [] Unable to be with family [] Patient intubated [] Other: Summary patient resting well Time spent with patient 5 min
[2020-01-12] MEDS: ipratropium-albuterol 3 mL Neb INHALATION ×3 (11:51→20:20)
[2020-01-12] MEDS: enoxaparin 40 mg/0.4 mL Syringe SUBCUT (13:41)
--- NOTE | 2020-01-12 15:05 | P.PN_ITS ---
Subjective Subjective: Interval history: Patient awake in bed at time of exam today. She reported that she is feeling somewhat better than yesterday. Patient denied any chest pain. Reported cough, no hemoptysis. Denied any lightheadedness or dizziness, no palpitations Vitals/I&O/Wt Last Vital Signs Temp 98.5 F 01/12/20 12:00 Pulse 114 H 01/12/20 12:00 Resp 17 01/12/20 12:00 BP 114/62 01/12/20 12:00 Pulse Ox 94 01/12/20 12:00 01/12/20 01/12/20 01/12/20 06:59 14:59 22:59 Intake Total 250 / 2120 360 / 360 Balance 250 / 1020 360 / 360 Weight last 48 hrs Weight 46.72 kg Weight 42.184 kg Physical Exam Const: COMMON NORMALS: patient oriented x3 and alert GENERAL APPEARANCE: cooperative ORIENTATION/CONSCIOUSNESS: Yes oriented to person, Yes oriented to place and Yes oriented to time HENMT: COMMON NORMALS: normocephalic and atraumatic HEAD & SCALP: normocephalic and atraumatic Eye: COMMON NORMALS: Equal, round and reactive pupils present PUPIL: Yes Equal, round and reactive pupils present Neck/C-Spine: COMMON NORMALS: supple GENERAL: Yes normal visual inspection Resp: COMMON NORMALS: No use of accessory muscles EFFORT & INSPECTION: Yes symmetric chest movement and Yes uses accessory muscles AUSCULTATION: no rhonchi and wheezes throughout Cardio: COMMON NORMALS: regular rhythm and No murmurs present (Cardio) RATE: tachycardic RHYTHM: regular rhythm GI: COMMON NORMALS: Soft to palpation and non-tender INSPECTION: No abdominal distension AUSCULTATION: Yes normoactive bowel sounds PALPATION: Yes Soft to palpation Extremity: COMMON NORMALS: no clubbing, cyanosis or edema and no calf tenderness Neuro: COMMON NORMALS: patient oriented x3, CN's II-XII intact bilaterally, moves all extremities and no focal motor deficits SENSORIUM/ORIENTATION: Yes alert, Yes oriented to person, Yes oriented to place and Yes oriented to time SPEECH: speech normal Psych: COMMON NORMALS: mental status grossly normal and cooperative Skin: COMMON NORMALS: no rashes or lesions noted GENERAL SKIN EXAM: no rashes or lesions noted Data : 01/12/20 01:50 01/12/20 01:50 Micro: Microbiology 01/11/20 11:08 Blood Culture - Preliminary Blood NEGATIVE TO DATE 01/11/20 08:41 Blood Culture - Preliminary Blood NEGATIVE TO DATE A&P Assessment and plan (1) Acute on chronic respiratory failure with hypoxia and hypercapnia: Patient has end-stage COPD, is on 2 L of oxygen by nasal cannula at baseline along with home trilogy at night Patient follows with pulmonology, Dr. Negron Aggressive pulmonary toilet Continue with home trilogy settings Continue for double coverage of Pseudomonas until further culture returns Transition from Solu-Medrol to prednisone today Status: Acute (2) Severe chronic obstructive pulmonary disease: Further plan as above. Continue with home oxygen with goal oxygen saturation 90 to 92% to continue with home trilogy settings Status: Acute (3) Pseudomonas aeruginosa colonization: Concern for pneumonitis with developing pneumonia, will continue with double coverage for Pseudomonas at this time and monitor cultures Status: Acute (4) Severe protein-calorie malnutrition: Status: Acute (5) Pulmonary hypertension: Status: Acute (6) Mass of upper lobe of left lung: Patient had CTA of the chest which showed cavitary lesion of the left upper lobe, discussed with Dr. Negron. Slight improvement in this area, patient is not a candidate for further intervention for biopsy at this time due to underlying severe bullous emphysema and location of the mass. Patient has had follow-up in the outpatient setting as well as with prior thoracentesis. In the past family had elected to hold off on any type of invasive procedure but there was concern at the time of a mass in the left lung Status: Acute Additional A&P Information Sinus tachycardia with a history of atrial fibrillation:, Will start on low-dose beta-kyrie, patient was previously on this medication but family could not recall on admission. Start on metoprolol twice daily. CTA negative for pulmonary embolism. Continue monitoring on telemetry. Could be secondary to albuterol treatments and steroid therapy Chronic anemia: Normocytic, patient's hemoglobin 9.1 today, this is improved from prior admissions with no evidence of any active bleeding. Checking further iron studies Finding on CTA of soft tissue stranding and pleural thickening in the apices bilaterally with hilar and mediastinal lymphadenopathy: Recommend continued outpatient follow-up, discussed with Dr. Negron today, no further intervention recommended at this time, continue outpatient follow up DVT prophylaxis: Lovenox Diet: Regular diet CODE STATUS: Full code Attestations Medical Necessity Statement*: Patient requires continued hospitalization for acute COPD exacerbation Coding Level of Care Code Acute Market Risk Analyst for Chg Fwd Diagnoses Acute on chronic respiratory failure with hypoxia and hypercapnia J96.21; J96.22 Severe chronic obstructive pulmonary disease J44.9 Pseudomonas aeruginosa colonization Z22.39 Severe protein-calorie malnutrition E43 Pulmonary hypertension I27.20 Mass of upper lobe of left lung R91.8
[2020-01-12 15:37] LABS: Iron 10 ug/dL (37-145)
[2020-01-12] MEDS: predniSONE 20 mg Tablet 40 MG PO (15:39)
[2020-01-12] MEDS: metoprolol tartrate 25 mg Tablet PO (15:39)
[2020-01-12 16:16] LABS: Percent Saturation 4.4 % (20-50); Total Iron Binding Capacity 223 mcg/dl; Unsaturated Iron Binding 213 ug/dL (112-347)
--- NOTE | 2020-01-12 20:11 | PC.NURSE ---
Baseline Neuro Assessment Pt A&Ox4, was able to tell me her birthday, where she was, why she was in the hospital, what year it was, who the president was, could move all extremities, followed directions with no complications, speech was clear and appropriate, pupils were equal and reactive.
--- NOTE | 2020-01-12 21:41 | PC.NURSE ---
Name and date of verified before medication administration. Pt requested that her Trilogy be set up, I sat it up for her, no pain reported, no other needs voiced at this time.
--- NOTE | 2020-01-12 22:32 | PC.NURSE ---
Pt sleeping during rounding. No needs verbalized, will continue to monitor.
[2020-01-13] VITALS (13 sets, daily range): BP systolic 94–145; BP diastolic 62–70; PULSE 91–109; RESP 16–21; TEMP 36.5–37.1; O2SAT 92–97; BMI 18.8
--- NOTE | 2020-01-13 00:04 | PC.NURSE ---
Pt resting in bed asleep, wearing her trilogy, per FLACC scale pain is 0/10. No needs voiced at this time. Will continue to monitor.
--- NOTE | 2020-01-13 01:15 | PC.NURSE ---
Pt sleeping in bed, wearing her trilogy, 0/10 pain per FLACC scale. No other needs voiced at this time. Will continue to monitor.
[2020-01-13] MEDS: cefepime 1,000 MG in sodium chloride 0.9% (plus) 50 ML 100 MG IV ×2 (01:19→13:33)
[2020-01-13 02:53] LABS: Basophils % 0.1 %; Hematocrit 30.9 % (37.0-47.0); Hemoglobin 9.2 g/dL (11.5-15.3); Lymphocytes # 0.7 10^3/uL (0.8-4.8); Lymphocytes % 9.2 %; Mean Corpuscular HGB Conc 29.8 g/dL (30.0-36.0); Mean Corpuscular Volume 90.6 fL (81-99); Mean Platelet Volume 9.4 fL (7.4-10.4); Monocytes # 0.9 10^3/uL (0.2-0.9); Monocytes % 11.7 %; Neutrophils # 5.9 10^3/uL (1.8-7.7); Neutrophils % 78.5 %; Nucleated Red Blood Cells % 0 %; Platelet Count 319 10^3/cmm (130-400); Red Blood Count 3.41 10^6/uL (4.1-5.3); Red Cell Distribution Width 15.3 % (12.1-15.1); White Blood Count 7.5 10^3/uL (4.0-10.0)
[2020-01-13 03:05] LABS: Blood Urea Nitrogen 17 mg/dL (8-23); Calcium 10.2 mg/dL (8.5-10.5); Carbon Dioxide 33 mmol/L (22-29); Chloride 100 mmol/L (98-107); Glomerular Filtration Rate 158.3 mL/min (90-130); Glucose 144 mg/dL (65-115); Osmolality Calculated 287 mOsm/kg (285-295); Sodium 139 mmol/L (136-145)
[2020-01-13] MEDS: ciprofloxacin 400 MG/200 ML PREMIX 200 MG IV ×3 (05:10→21:29)
--- NOTE | 2020-01-13 05:32 | PC.NURSE ---
Pt has been sleeping throughout the night. She has required no pain medication. Gotten up to urinate 2 times both times getting over 600mL out. Reports 0/10 pain. No other needs voiced at this time. Will continue to monitor.
[2020-01-13] MEDS: CELEcoxib 200 mg Capsule PO ×2 (07:43→17:27)
[2020-01-13] MEDS: aspirin 81 mg Chew Tablet PO (07:43)
[2020-01-13] MEDS: predniSONE 20 mg Tablet 40 MG PO (07:43)
[2020-01-13] MEDS: metoprolol tartrate 25 mg Tablet PO ×2 (07:44→17:27)
[2020-01-13] MEDS: ipratropium-albuterol 3 mL Neb INHALATION ×4 (08:39→19:25)
[2020-01-13] MEDS: enoxaparin 40 mg/0.4 mL Syringe SUBCUT (12:23)
--- NOTE | 2020-01-13 13:56 | P.PN_ITS ---
Subjective Subjective: Interval history: Patient states that she is feeling better this morning, still has a cough, no fevers, chills, no nausea, no vomiting, lightheaded, dizziness Vitals/I&O/Wt Last Vital Signs Temp 98.5 F 01/13/20 11:28 Pulse 102 H 01/13/20 11:50 Resp 16 01/13/20 11:44 BP 120/66 01/13/20 11:28 Pulse Ox 93 01/13/20 11:44 01/12/20 01/13/20 01/13/20 22:59 06:59 14:59 Intake Total 800 / 1410 250 / 1660 720 / 720 Output Total 1350 / 1350 700 / 2050 900 / 900 Balance -550 / 60 -450 / -390 -180 / -180 Weight last 48 hrs Weight 48.137 kg Weight 46.72 kg Physical Exam Const: COMMON NORMALS: no acute distress and patient oriented x3 HENMT: COMMON NORMALS: normocephalic HEAD & SCALP: normocephalic Neck/C-Spine: COMMON NORMALS: no JVD Resp: COMMON NORMALS: normal respiratory effort, No retractions, No use of accessory muscles and clear to auscultation bilaterally AUSCULTATION: clear to auscultation bilaterally Cardio: COMMON NORMALS: no JVD, regular rate, regular rhythm, S1 normal heart sound present and S2 normal heart sound present RATE: regular rate RHYTHM: regular rhythm HEART SOUNDS: S1 normal heart sound present and S2 normal heart sound present GI: COMMON NORMALS: Normal to inspection, nondistended, normoactive bowel sounds present, Soft to palpation, non-tender, No hepatosplenomegaly present, no masses and no bruits PALPATION: Yes Soft to palpation and Yes No hepatosplenomegaly present Extremity: COMMON NORMALS: capillary refill normal, no clubbing, cyanosis or edema, no calf tenderness and no pedal edema Neuro: COMMON NORMALS: patient oriented x3 Psych: COMMON NORMALS: mental status grossly normal Data : 01/13/20 02:30 01/13/20 02:30 Micro: Microbiology 01/12/20 15:42 Gram Stain - Final Sputum - Expectorated Sputum 01/11/20 11:08 Blood Culture - Preliminary Blood NEGATIVE TO DATE 01/11/20 08:41 Blood Culture - Preliminary Blood NEGATIVE TO DATE A&P Assessment and plan (1) Acute on chronic respiratory failure with hypoxia and hypercapnia: Patient has end-stage COPD, is on 2 L of oxygen by nasal cannula at baseline along with home trilogy at night Patient follows with pulmonology, Dr. Negron Aggressive pulmonary toilet Continue with home trilogy settings Continue for double coverage of Pseudomonas until further culture returns Transition from Solu-Medrol to prednisone today Status: Acute (2) Severe chronic obstructive pulmonary disease: Further plan as above. Continue with home oxygen with goal oxygen saturation 90 to 92% to continue with home trilogy settings Status: Acute (3) Pseudomonas aeruginosa colonization: Concern for pneumonitis with developing pneumonia, will continue with double coverage for Pseudomonas at this time and monitor cultures Status: Acute (4) Severe protein-calorie malnutrition: Status: Acute (5) Pulmonary hypertension: Status: Acute (6) Mass of upper lobe of left lung: Patient had CTA of the chest which showed cavitary lesion of the left upper lobe, discussed with Dr. Negron. Slight improvement in this area, patient is not a candidate for further intervention for biopsy at this time due to underlying severe bullous emphysema and location of the mass. Patient has had follow-up in the outpatient setting as well as with prior thoracentesis. In the past family had elected to hold off on any type of invasive procedure but there was concern at the time of a mass in the left lung Status: Acute Additional A&P Information Sinus tachycardia with a history of atrial fibrillation:, Will start on low-dose beta-kyrie, patient was previously on this medication but family could not recall on admission. Start on metoprolol twice daily. CTA negative for pulmonary embolism. Continue monitoring on telemetry. Could be secondary to albuterol treatments and steroid therapy Chronic anemia: Normocytic, patient's hemoglobin 9.1 today, this is improved from prior admissions with no evidence of any active bleeding. Checking further iron studies Finding on CTA of soft tissue stranding and pleural thickening in the apices bilaterally with hilar and mediastinal lymphadenopathy: Recommend continued outpatient follow-up, discussed with Dr. Negron, no further intervention recomm ended at this time, continue outpatient follow up Discharge the next 24 hours DVT prophylaxis: Lovenox Diet: Regular diet CODE STATUS: Full code Attestations Medical Necessity Statement*: Requires continued hospitalization due to respiratory failure Coding Level of Care Code Acute Food Demonstrator for Chg Fwd Diagnoses Acute on chronic respiratory failure with hypoxia and hypercapnia J96.21; J96.22 Severe chronic obstructive pulmonary disease J44.9 Pseudomonas aeruginosa colonization Z22.39 Severe protein-calorie malnutrition E43 Pulmonary hypertension I27.20 Mass of upper lobe of left lung R91.8
[2020-01-14] MEDS: cefepime 1,000 MG in sodium chloride 0.9% (plus) 50 ML 100 MG IV (01:15)
[2020-01-14 03:43] VITALS: BP 133/67; PULSE 97; RESP 20; TEMP 36.5; O2SAT 90
[2020-01-14] MEDS: ciprofloxacin 400 MG/200 ML PREMIX 200 MG IV (04:57)
[2020-01-14 05:54] LABS: Basophils % 0.1 %; Hematocrit 31.2 % (37.0-47.0); Hemoglobin 9.4 g/dL (11.5-15.3); Lymphocytes # 2.1 10^3/uL (0.8-4.8); Mean Corpuscular HGB Conc 30.1 g/dL (30.0-36.0); Mean Corpuscular Hemoglobin 27.1 pg (28.0-34.0); Mean Corpuscular Volume 89.9 fL (81-99); Mean Platelet Volume 9.3 fL (7.4-10.4); Monocytes # 1.1 10^3/uL (0.2-0.9); Monocytes % 15.7 %; Neutrophils % 54.2 %; Nucleated Red Blood Cells % 0 %; Platelet Count 328 10^3/cmm (130-400); Red Blood Count 3.47 10^6/uL (4.1-5.3); Red Cell Distribution Width 15.5 % (12.1-15.1); White Blood Count 7.3 10^3/uL (4.0-10.0)
[2020-01-14 06:06] LABS: Anion Gap 12.4 (5-19); Blood Urea Nitrogen 15 mg/dL (8-23); Calcium 9.9 mg/dL (8.5-10.5); Carbon Dioxide 33 mmol/L (22-29); Chloride 97 mmol/L (98-107); Creatinine Clr Calc Pharmacy 52.5686; Glomerular Filtration Rate 158.3 mL/min (90-130); Glucose 124 mg/dL (65-115); Osmolality Calculated 284 mOsm/kg (285-295); Potassium 4.4 mmol/L (3.5-5.1); Sodium 138 mmol/L (136-145)
--- NOTE | 2020-01-14 06:20 | PC.NURSE ---
END OF SHIFT NOTE Pt is A&Ox4, on 2LPM NC, maintained SPO2 above 90%, used trilogy throughout the night, required no pain medication throughout the night, current pain rating is 0/10, no falls, no other needs voiced at this time.
[2020-01-14] MEDS: ipratropium-albuterol 3 mL Neb INHALATION (07:28)
[2020-01-14 07:30] VITALS: PULSE 110; RESP 18; O2SAT 90
[2020-01-14 07:41] VITALS: PULSE 115
[2020-01-14 08:00] VITALS: BP 108/66; PULSE 112; RESP 18; TEMP 36.8; O2SAT 94
[2020-01-14] MEDS: metoprolol tartrate 25 mg Tablet PO (08:07)
[2020-01-14] MEDS: aspirin 81 mg Chew Tablet PO (08:07)
[2020-01-14] MEDS: CELEcoxib 200 mg Capsule PO (08:07)
[2020-01-14] MEDS: predniSONE 20 mg Tablet 40 MG PO (08:07)
--- NOTE | 2020-01-14 10:23 | PM.DCS ---
Discharge Providers Date of Admission: 01/11/20 10:50 Date of Discharge: January 14, 2020 Attending Provider at Admission: Galina Lew DO Attending Provider at Discharge: Herbie Cifuentes MD Primary Care Provider: Kahlil Joseph MD Diagnoses at Discharge Discharge Diagnosis (1) Acute on chronic respiratory failure with hypoxia and hypercapnia: Status: Acute (2) Severe chronic obstructive pulmonary disease: Status: Acute (3) Pseudomonas aeruginosa colonization: Status: Acute (4) Severe protein-calorie malnutrition: Status: Acute (5) Pulmonary hypertension: Status: Acute (6) Mass of upper lobe of left lung: Status: Acute Reason for Visit Reason for Visit: Reason For Visit: RESP DISTRESS Hospital Course Discharge Summary: This is a 70-year-old female with a past medical history of chronic respiratory failure with hypoxia hypercapnia, end-stage COPD on 2 L nasal cannula, chronic Pseudomonas aeruginosa colonizer, palm hypertension, history of mass of upper lobe of left lung, on home trilogy, managed by pulmonary as outpatient who presents [facility] due to complaints of shortness of breath. Patient was admitted for chronic respiratory failure with hypoxia and hypercapnia secondary to COPD and concerns for pseudomonas aeruginosa pneumonia, received nebulizer treatments, steroids, broad-spectrum antibiotics, patient clinically improved, discharged home on steroid taper and Levaquin for 7 remaining days, a home trilogy, 2 L oxygen, and outpatient follow-up with Dr. Negron. On admission patient had a CT angiogram of her chest which showed increasing opacification in the upper lung field, cavitary lesion, patient has had concerns for possible infiltrate versus malignancy, but is not an ideal surgical candidate or biopsy candidate given her significant bullous emphysema, this has been discussed with patient in the past, discussed with pulmonary, no acute interventions, continue to follow-up with Dr. Negron as outpatient. Physical Exam Const: COMMON NORMALS: no acute distress and patient oriented x3 HENMT: COMMON NORMALS: normocephalic HEAD & SCALP: normocephalic Neck/C-Spine: COMMON NORMALS: no JVD Resp: COMMON NORMALS: normal respiratory effort, No retractions, No use of accessory muscles and clear to auscultation bilaterally AUSCULTATION: clear to auscultation bilaterally Cardio: COMMON NORMALS: no JVD, regular rate, regular rhythm, S1 normal heart sound present and S2 normal heart sound present RATE: regular rate RHYTHM: regular rhythm HEART SOUNDS: S1 normal heart sound present and S2 normal heart sound present GI: COMMON NORMALS: Normal to inspection, nondistended, normoactive bowel sounds present, Soft to palpation, non-tender, No hepatosplenomegaly present, no masses and no bruits PALPATION: Yes Soft to palpation and Yes No hepatosplenomegaly present Extremity: COMMON NORMALS: capillary refill normal, no clubbing, cyanosis or edema, no calf tenderness and no pedal edema Neuro: COMMON NORMALS: patient oriented x3 Psych: COMMON NORMALS: mental status grossly normal Discharge Data Data Completed and Pending: Completed Studies During Hospitalization Category Date Time Status CT angio chest PE protcl [id number] Urge nt Cat Scan 01/11/20 09:42 Completed XR chest 1V [place]j ble [id number] Urgent Exams 01/11/20 08:14 Completed Pending at discharge Category Date Time Status Blood Culture Sta t Lab 01/11/20 11:08 Results Sputum Culture an d Gram Stain Stat Lab 01/12/20 15:42 Results Labs from last 24 hours 01/14/20 01/14/20 05:28 05:28 WBC 7.3 RBC 3.47 L Hgb 9.4 L Hct 31.2 L MCV 89.9 MCH 27.1 L MCHC 30.1 RDW 15.5 H Plt Count 328 MPV 9.3 Neut % (Auto) 54.2 Lymph % (Auto) 29.0 Todd % (Auto) 15.7 Eos % (Auto) 0.0 Baso % (Auto) 0.1 Neut # (Auto) 4.0 Lymph # (Auto) 2.1 Todd # (Auto) 1.1 H Eos # (Auto) 0.0 Baso # (Auto) 0.0 Nucleated RBC % (a uto) 0 Nucleated RBCs # 0.0 Sodium 138 Potassium 4.4 Chloride 97 L Carbon Dioxide 33 H Anion Gap 12.4 BUN 15 Creatinine 0.4 L GFR Calculation 158.3 H Glucose 124 H Calculated Osmolal ity 284 L Calcium 9.9 Vitals: Last Vital Signs Temp 98.2 F 01/14/20 08:00 Pulse 112 H 01/14/20 08:00 Resp 18 01/14/20 08:00 BP 108/66 01/14/20 08:00 Pulse Ox 94 01/14/20 08:00 Discharge Plan Discharge Patient Disposition: Home, Self-Care Condition: Stable Prescriptions: New metoprolol tartrate 25 mg Tablet 25 mg PO BID 30 Days Qty: 60 RF: 0 prednisone 10 mg tablet See Rx Instructions .ROUTE .COMPLEX Qty: 53 RF: 0 Levaquin 750 mg tablet 750 mg PO DAILY 7 Days Qty: 7 RF: 0 Continued fluticasone propionate 50 mcg/actuation spray,suspension 2 spray INTRANASAL DAILY PRN (Reason: Nasal Congestion) RF: 0 Ventolin HFA 90 mcg/actuation HFA aerosol inhaler 1 puff INHALATION TID PRN (Reason: Shortness Of Breath) Qty: 18 RF: 3 fluticasone propion-salmeterol 100-50 mcg/dose blister with device 1 inh inhalation Q12H Qty: 60 RF: 3 levocetirizine 5 mg tablet 5 mg PO DAILY Qty: 30 RF: 5 aspirin 81 mg Tablet,Chewable 81 mg PO DAILY RF: 0 Spiriva with HandiHaler 18 mcg capsule, w/inhalation device 1 cap INHALATION DAILY RF: 0 Changed celecoxib 200 mg capsule 200 mg PO BID PRN (Reason: pain) Qty: 60 RF: 3 Discharge Orders: Discharge Order (Routine); Ordered 01/14/20 Ordered By: Herbie Cifuentes Referrals: Kahlil Joseph MD [Primary Care Provider] - (You will need to call Wednesday and make a hospital follow up appointment with Dr. Joseph in 4-7 days.) Babak Negron MD [Physician] - 1 week (You will need to call Wednesday and make a follow up appointment with Dr. Negron in 1 week.) Discharge Diet: Cardiac Discharge Activity: Resume usual activity Discharge Attestations Time Spent in Discharge Care*: less than 30 min Quality Metrics Clinical Quality Measures During this hospital stay, did patient experience: None Coding Level of Care Code Acute Talent Development Manager for Chg Fwd Diagnoses Acute on chronic respiratory failure with hypoxia and hypercapnia J96.21; J96.22 Severe chronic obstructive pulmonary disease J44.9 Pseudomonas aeruginosa colonization Z22.39 Severe protein-calorie malnutrition E43 Pulmonary hypertension I27.20 Mass of upper lobe of left lung R91.8
[2020-01-14 10:34] VITALS: BP 108/66; PULSE 112; RESP 18; TEMP 36.8; O2SAT 94
[2020-01-14] MEDS: guaiFENesin 600 mg Tablet PO (10:36)
== END 2020-01-14 11:03 | disposition home or self-care (01) | DRG 189 ==
LOC: ER 11:05 → MEDSURG 12:18
PROVIDERS: Emergency Medicine; Admitting Provider Family Medicine; Family Provider Internal Medicine; PCP Internal Medicine; Visit Provider Family Medicine
DX: J96.21 Acute and chronic respiratory failure with hypoxia (principal); E43 Unspecified severe protein-calorie malnutrition; Z68.1 Body mass index [BMI] 19.9 or less, adult; J96.22 Acute and chronic respiratory failure with hypercapnia; J44.9 Chronic obstructive pulmonary disease, unspecified; R91.8 Other nonspecific abnormal finding of lung field; I27.20 Pulmonary hypertension, unspecified; Z87.891 Personal history of nicotine dependence; Z99.81 Dependence on supplemental oxygen; B96.5 Pseudomonas (aeruginosa) (mallei) (pseudomallei) as the cause of diseases classified elsewhere; I48.91 Unspecified atrial fibrillation; D64.9 Anemia, unspecified; Z79.51 Long term (current) use of inhaled steroids
CPT/HCPCS: 12345; 36415; 36600; 71045; 71275; 80048; 80053; 82805; 83540; 83550; 83880; 84484; 85025; 87040; 87070; 87077; 87186; 87205; 93005; 94640; 96372; 96375; 99283; J0456; J0692; J0696; J0744; J1650; J2060; J2930; J3535; J7030; J7050; J7512; J7611; Q9967

== ENCOUNTER 2020-02-22 12:01 | Outpatient (CLI) | payer MEDICARE, MEDICAID, SELFPAY ==
--- NOTE | 2020-02-22 12:15 | XRR_ITS ---
PROCEDURE INFORMATION: Exam: XR Chest, 2 Views Exam date and time: 02/22/2020 12:31 PM Age: 70 years old Clinical indication: Prior surgery; Surgery date: 6+ months; Surgery type: Back surgery; Patient HX: C/O worsening shortness of breath; Fatigue and weight loss. HX of copd. HX of cad TECHNIQUE: Imaging protocol: XR of the chest Views: 2 views. COMPARISON: CR XR chest 1V portable [id number] 01/11/2020 8:52 AM FINDINGS: Lungs: The lungs are hyperexpanded consistent with COPD. Bilateral upper lobe pulmonary fibrosis is seen these findings are stable since prior examination. An apparent emphysematous bleb is present in the upper lateral aspect of the left lung. The lungs are otherwise clear. Pleural space: Unremarkable. No pleural effusion. No pneumothorax. Heart/Mediastinum: Unremarkable. No cardiomegaly. Bones/joints: There is diffuse osteopenia and multiple compression fractures in the dorsal spine. There is kyphoplasty at multiple levels in the lower dorsal spine XR/XR chest 2V* [id number] IMPRESSION: 1. Stable pulmonary fibrotic changes in the bilateral upper lobes. 2. Stable COPD 3. Severe dorsal spine osteopenia and kyphoplasty at multiple levels
== END 2020-02-22 12:02 | disposition home or self-care (01) ==
LOC: RAD 12:04
PROVIDERS: PCP Internal Medicine; Visit Provider Internal Medicine Critical Care Medicine
DX: J96.91 Respiratory failure, unspecified with hypoxia (principal); R53.83 Other fatigue; J44.9 Chronic obstructive pulmonary disease, unspecified; M85.88 Other specified disorders of bone density and structure, other site
CPT/HCPCS: 71046

== ENCOUNTER → 2020-08-30 09:37 | Day surgery (SDC) | payer MEDICARE, MEDICAID, SELFPAY ==
[2020-08-30 10:31] VITALS: BP 96/59; PULSE 92; RESP 18; TEMP 36.5; O2SAT 100; BMI 16.8
[2020-08-30 10:43] LABS: Blood Urea Nitrogen 17 mg/dL (8-23); Glomerular Filtration Rate 158.3 mL/min (90-130)
[2020-08-30 10:49] LABS: Creatinine Clr Calc Pharmacy 43.7223
[2020-08-30 11:21] LABS: Alanine Aminotransferase 9 U/L (0-33); Albumin Level 4.4 g/dL (3.5-5.2); Alkaline Phosphatase 79 IU/L (35-105); Blood Urea Nitrogen 17 mg/dL (8-23); Carbon Dioxide 30 mmol/L (22-29); Chloride 95 mmol/L (98-107); Globulin 3.9 g/dL (1.3-4.6); Glomerular Filtration Rate 158.3 mL/min (90-130); Glucose 89 mg/dL (65-115); Osmolality Calculated 279 mOsm/kg (285-295); Sodium 134 mmol/L (136-145); Total Bilirubin 0.3 mg/dL (0.15-1.2); Total Protein 8.3 g/dL (6.6-8.7)
[2020-08-30 11:26] LABS: Creatinine Clr Calc Pharmacy 43.7223
[2020-08-30 11:28] LABS: Aspartate Amino Transferase 23 U/L (0-32)
== END ==
LOC: OPS 09:45
PROVIDERS: PCP Internal Medicine; Visit Provider Internal Medicine
DX: M81.0 Age-related osteoporosis without current pathological fracture (principal)
CPT/HCPCS: 36415; 80053; 82565; 84520; 96365; J3489

== ENCOUNTER → 2021-07-23 08:22 | Day surgery (SDC) | payer MEDICARE, MEDICAID, SELFPAY ==
[2021-07-23 08:30] VITALS: BP 129/71; PULSE 66; RESP 18; TEMP 36.3; O2SAT 100; BMI 16.5
[2021-07-23 09:15] LABS: Anion Gap 17.5 (5-19); Blood Urea Nitrogen 11 mg/dL (8-23); Carbon Dioxide 25 mmol/L (22-29); Chloride 100 mmol/L (98-107); Glomerular Filtration Rate 157.8 mL/min (90-130); Glucose 92 mg/dL (65-115); Osmolality Calculated 285 mOsm/kg (285-295); Potassium 4.5 mmol/L (3.5-5.1); Sodium 138 mmol/L (136-145)
== END ==
PROVIDERS: PCP Internal Medicine; Visit Provider Internal Medicine
DX: M81.0 Age-related osteoporosis without current pathological fracture (principal)
CPT/HCPCS: 36415; 80048; 96365; J3489

== ENCOUNTER → 2021-10-30 11:18 | Outpatient (BNVA) | payer MEDICARE, MEDICAID, SELFPAY | PROVIDERS: PCP Internal Medicine; Visit Provider Internal Medicine Critical Care Medicine | DX: J44.1 Chronic obstructive pulmonary disease with (acute) exacerbation (principal); J44.9 Chronic obstructive pulmonary disease, unspecified; Z87.891 Personal history of nicotine dependence | CPT/HCPCS: 99214 ==

== ENCOUNTER 2021-12-12 08:42 | Outpatient (CLI) | payer MEDICARE, MEDICAID, SELFPAY ==
--- NOTE | 2021-12-12 08:53 | CT_ITS ---
WS: [id number] LDCT LUNG CANCER SCREENING TECHNIQUE: Noncontrast CT of the chest with coronal and sagittal reformatted images. CLINICAL INFORMATION: Lung cancer screenin COMPARISON: CTA January 11, 2020 DLP: 75.00 mGy.cm DIvol: Mean CTDIvol: 1.60 (mGy) All CT scans at [facility] use at least one of these dose optimization techniques: automat ed exposure control; mA and/or kV adjustment per patient size (includes targeted exams where dose is matched to clinical indication); or iterative reconstruction. FINDINGS: Advanced chronic emphysematous change with bullous formation. Bullae and bleb formations in the upper lobes bilaterally. Fibrosis in the lung apices. Again seen is pleural thickening in the lung apices bilaterally similar in appearance. Small amount of pleural calcification posteriorly LEFT lung apex. Cavitation LEFT upper lobe is uncha nged in appearance. 7 mm noncalcified subpleural nodule LEFT lower lobe laterally is partially obscured by infiltrates on the prior examination and appears increased in size. Recommend [address] follow-up. Aortic calcification. Normal caliber thoracic aorta. Previously described lymphadenopathy has resolve d. No mediastinal or hilar lymphadenopathy today. Calcified RIGHT hilar lymph nodes. Thoracic curve. Prior vertebroplasties at T11, T12, L1, L2 and L3. Mild compression fracture at T6 is stable. Osteopenia. CT/CT lung screening [id number] IMPRESSION: LUNG-RADS: 4A-Probably Suspicious FOLLOW UP: 3 Month LDCT
== END 2021-12-12 08:43 | disposition home or self-care (01) ==
LOC: RAD 08:44
PROVIDERS: PCP Internal Medicine; Visit Provider Internal Medicine Critical Care Medicine
DX: Z12.2 Encounter for screening for malignant neoplasm of respiratory organs (principal); Z87.891 Personal history of nicotine dependence; R91.1 Solitary pulmonary nodule; J43.9 Emphysema, unspecified
CPT/HCPCS: 71271

== ENCOUNTER → 2022-02-27 09:19 | Outpatient (BNVA) | payer MEDICARE, MEDICAID, SELFPAY | PROVIDERS: PCP Internal Medicine; Visit Provider Internal Medicine Critical Care Medicine | DX: J44.9 Chronic obstructive pulmonary disease, unspecified (principal); R91.1 Solitary pulmonary nodule; J96.11 Chronic respiratory failure with hypoxia; J96.12 Chronic respiratory failure with hypercapnia; Z87.891 Personal history of nicotine dependence; Z99.81 Dependence on supplemental oxygen | CPT/HCPCS: 99214 ==

== ENCOUNTER 2022-03-23 14:45 | Outpatient (CLI) | payer MEDICARE, MEDICAID, SELFPAY ==
--- NOTE | 2022-03-23 15:01 | CT_ITS ---
WS: [id number] LDCT LUNG CANCER SCREENING HISTORY: Lung nodule TECHNIQUE: Axial imaging performed from the apices to 1 cm below the costophrenic angles. Coronal and sagittal reformats are submitted with axial MIP series. All CT scans at [facility] use at least one of these dose optimization techniques: automated exposure control; mA and/or kV adjustment per patient size (includes targeted exams where dose is matched to clinical indication); or iterativ e reconstruction. DLP: 73.51 mGy.cm DIvol: Mean CTDIvol: 1.60 (mGy) COMPARISON: 12/12/2021 Diagnostic quality: Satisfactory Lung Nodules: No change in the noncalcified pleural-based nodule measuring 6 mm in diameter LEFT lowe r lobe. Severe bullous emphysema. There are numerous bulla and bleb formations predominantly in the u pper lobes. Centrilobular emphysema. Fibrotic changes at the lung apices. Heart: Normal size heart. No pericardial or pleural effusions. Other findings: Moderate atherosclerotic plaque within the aorta. Mildly dilated pulmonary artery. Sm all mediastinal and hilar lymph nodes. CT/CT lung screening [id number] IMPRESSION: LUNG-RADS: 3-Probably Benign FOLLOW UP: 6 Month LDCT OTHER FINDINGS (S MODIFIER): None.
== END 2022-03-23 14:46 | disposition home or self-care (01) ==
PROVIDERS: PCP Internal Medicine; Visit Provider Internal Medicine Critical Care Medicine
DX: Z12.2 Encounter for screening for malignant neoplasm of respiratory organs (principal); Z87.891 Personal history of nicotine dependence
CPT/HCPCS: 71271

== ENCOUNTER → 2022-07-24 11:34 | Day surgery (SDC) | payer MEDICARE, MEDICAID, SELFPAY ==
[2022-07-24 12:01] VITALS: BP 109/54; PULSE 80; RESP 18; TEMP 36.2; O2SAT 90
--- NOTE | 2022-07-24 12:20 | PC.NURSE ---
Pt to GI infusions for Reclast infusion. Calcium level 9.9. Creatinine clerance 80 mL/min. Reclast given as ordered.
[2022-07-24 12:21] LABS: Blood Urea Nitrogen 13 mg/dL (8-23); Calcium 9.9 mg/dL (8.5-10.5)
== END ==
PROVIDERS: Visit Provider Internal Medicine
DX: M81.0 Age-related osteoporosis without current pathological fracture (principal)
CPT/HCPCS: 36415; 82310; 82565; 84520; 96365; J3489

== ENCOUNTER → 2022-07-28 13:26 | Outpatient (BNVA) | payer MEDICARE, MEDICAID, SELFPAY | PROVIDERS: PCP Internal Medicine; Visit Provider Internal Medicine Pulmonary Disease | DX: J44.9 Chronic obstructive pulmonary disease, unspecified (principal); R91.1 Solitary pulmonary nodule; J96.11 Chronic respiratory failure with hypoxia; J96.12 Chronic respiratory failure with hypercapnia; R91.8 Other nonspecific abnormal finding of lung field; Z87.891 Personal history of nicotine dependence | CPT/HCPCS: 99214 ==

== ENCOUNTER 2022-10-19 12:37 | Inpatient (IN) | payer MEDICARE, MEDICAID, SELFPAY ==
[2022-10-19] VITALS (37 sets, daily range): BP systolic 102–135; BP diastolic 55–68; PULSE 69–92; RESP 16–20; TEMP 36.6–36.7; O2SAT 92–99; BMI 16.0
--- NOTE | 2022-10-19 12:39 | XRR_ITS ---
PROCEDURE INFORMATION: Exam: XR Chest Exam date and time: 10/19/2022 1:02 PM Age: 72 years old Clinical indication: Cough and dyspnea; Additional info: Dyspnea/cough TECHNIQUE: Imaging protocol: Radiologic exam of the chest. Views: 1 view. COMPARISON: CR XR chest 2V* [id number] 02/22/2020 12:26 PM FINDINGS: Lungs: The lungs overall are hyperinflated with changes compatible with emphysema. There is bilateral upper lobe fibrosis with retraction of both rula in a superior direction. Pleural spaces: Small pleural effusions and or pleural thickening. No pneumothorax. Heart/Mediastinum: The cardiac silhouette is not enlarged. The mediastinal contours are felt to be unchanged allowing for patient rotation. Bones/joints: Multilevel vertebral body augmentation in the lower thoracic and upper lumbar spine. XR/XR chest 1V portable [id number] IMPRESSION: 1. Emphysema. 2. Bilateral upper lobe fibrosis.
--- NOTE | 2022-10-19 12:39 | ECG_ITS ---
[facility] Test Date: 2022-10-19 Pat Name: Marie Hull Department: Room: Gender: Female Anesthesiology Physician Assistant: : [id number] Requested By: Brant Madrigal Order Number: [id number] Bobby MD: Nicholas Vega M.D. Measurements Intervals [place] Rate: 80 P: 78 SC: 126 QRS: 96 QRSD: 90 T: 86 QT: 359 QTc: 416 Interpretive Statements SINUS RHYTHM WITH FREQUENT SUPRAVENTRICULAR PREMATURE COMPLEXES BORDERLINE RIGHT AXIS DEVIATION [QRS AXIS > 90] EARLY REPOLARIZATION [ST ELEVATION WITH NORMALLY INFLECTED T-WAVE] MODERATE ST DEPRESSION [0.05+ mV ST DEPRESSION] Compared to ECG 01/12/2020 04:47:24 Early repolarization now present ST (T wave) deviation now present Sinus tachycardia no longer present Electronically Signed On 10-19-2022 14:26:58 PIECE MAKER by Nicholas Vega M.D. [email or web address]
[2022-10-19 13:02] LABS: Basophils # 0.1 10^3/uL (0.0-0.1); Basophils % 0.9 %; Eosinophils # 0.1 10^3/uL (0.0-0.8); Eosinophils % 0.9 %; Hematocrit 45.4 % (37.0-47.0); Hemoglobin 13.3 g/dL (11.5-15.3); Lymphocytes # 1.4 10^3/uL (0.8-4.8); Lymphocytes % 20.9 %; Mean Corpuscular HGB Conc 29.3 g/dL (30.0-36.0); Mean Corpuscular Hemoglobin 29.7 pg (28.0-34.0); Mean Corpuscular Volume 101.3 fl (81-99); Mean Platelet Volume 9.9 fL (7.4-10.4); Monocytes # 0.8 10^3/uL (0.2-0.9); Monocytes % 11.6 %; Neutrophils # 4.29 10^3/uL (1.8-7.7); Neutrophils % 65.5 %; Nucleated Red Blood Cells % 0 %; Platelet Count 230 10^3/cmm (130-400); Red Blood Count 4.48 10^6/uL (4.1-5.3); Red Cell Distribution Width 13.4 % (12.1-15.1); White Blood Count 6.6 10^3/uL (4.0-10.0)
[2022-10-19] MEDS: ipratropium-albuterol 3 mL Neb INHALATION ×2 (13:09→20:59)
--- NOTE | 2022-10-19 13:19 | W.ED.SOB ---
HPI - SOB/Dyspnea General: Chief Complaint: Shortness of Breath/Dyspnea Stated Complaint: SHORTNESS OF BREATHE Time Seen by Provider: 10/19/22 12:39 Source: patient Mode of arrival: ambulatory History of Present Illness: HPI Narrative: 72-year-old female presents emergency room complaining of shortness of breath the last 2 days. She has a history of COPD she normally uses 2 L by nasal cannula at home but last 2 days it had to be be bumped up to 3 L. MD elicited complaint: shortness of breath and cough Pertinent past history: COPD Context: occurred during exertion Timing: constant Severity: mild Exacerbating factors: exertion and coughing Known history of: COPD Associated symptoms: Reports chest congestion and cough; Deny abdominal pain, chest pain, diaphoresis, dizziness, extremity pain, fever(s), hemoptysis, lightheadedness, myalgias, nausea, orthopnea, palpitations, paresthesias, polydipsia, polyuria, rash, sense of impending doom, syncope or vomiting Related Data: Home oxygen amount: 2 liters Review of Systems Const: Denies: fever(s), chills, fatigue, malaise or diaphoresis ENMT: Denies: throat pain, ear or mastoid pain, nasal discharge or nasal congestion Card: Denies: chest pain, palpitations, lightheadedness, syncope or orthopnea Resp: Reports: chest congestion; Denies: hemoptysis GI: Denies: abdominal pain, nausea or vomiting : Denies: flank pain, difficulty voiding, dysuria, urinary frequency or urinary urgency Musc: Denies: extremity pain Skin/Breast: Denies: rash or pruritus Neuro: Denies: dizziness Endo: Denies: polyuria or polydipsia PFSH ED PFSH: Medical History Atrial fibrillation transient, during acute COPD exacerbation in 2019 Chronic respiratory failure with hypoxia and hypercapnia COPD (chronic obstructive pulmonary disease) History of echocardiogram 08/2019 EF 65%, grade I/IV diastolic dysfunction, PAP within normal limits History of PFTs 10/2019 severe airflow obstruction, FEV1/FVC of 33%, FEV1 0.57 L 29% predicted, FVC 1.76 L 71% predicted, TLC 107%, RV 163%, reduced DLCO at 25% Mass of upper lobe of left lung cavitary appearance, never biopsied due to risk of complication and non-surgical candidate, has been stable on imaging Osteoarthritis Osteoporosis Personal history of nicotine dependence quit in 2019, but still with 2nd hand exposure Pseudomonas aeruginosa colonization Pulmonary nodule left lower lobe Seasonal allergies Surgical History History of kyphoplasty (2014) L1, L2, L3, L5 performed by Dr. Roman Marquez Family History Mother CAD (coronary artery disease) Social History Smoking and tobacco status: former smoker Quit status (tobacco): has quit using tobacco Year quit tobacco: 2019 - 1PPD x 50 Years Second hand smoke exposure: Yes Alcohol intake: never Substance/Drug Use: never Lives independently: Yes Household members: none Marital status: Current occupational status: retired Current gender identity: Female Physical Exam Const: ORIENTATION/CONSCIOUSNESS: Yes awake, Yes oriented to person, Yes oriented to place and Yes oriented to time HENMT: COMMON NORMALS: normocephalic, atraumatic and hearing grossly normal bilaterally HEAD & SCALP: normocephalic and atraumatic Resp: AUSCULTATION: wheezes Cardio: COMMON NORMALS: regular rate, regular rhythm and No murmurs present (Cardio) RATE: regular rate RHYTHM: regular rhythm GI: COMMON NORMALS: Soft to palpation and No hepatosplenomegaly present AUSCULTATION: Yes normoactive bowel sounds PALPATION: Yes Soft to palpation, No Tenderness to palpation present (GI), No Guarding due to palpation present (GI) and Yes No hepatosplenomegaly present Extremity: COMMON NORMALS: normal to inspection, capillary refill normal, no clubbing, cyanosis or edema, no calf tenderness and no pedal edema Neuro: SENSORIUM/ORIENTATION: Yes oriented to person, Yes oriented to place and Yes oriented to time Skin: COMMON NORMALS: no rashes or lesions noted GENERAL SKIN EXAM: no rashes or lesions noted Course Vital Signs: Vital signs: Vital Signs Temperature 98.0 F 10/20/22 04:00 Pulse Rate 79 10/20/22 04:57 Respiratory Rate 18 10/20/22 04:00 Blood Pressure 117/68 10/20/22 04:00 Pulse Oximetry 98 10/20/22 04:57 Oxygen Delivery Me thod 10/20/22 04:00 Oxygen Flow Rate 3 10/19/22 23:50 Fraction of Inspir ed Oxygen 35 10/20/22 04:57 MDM - SOB/Dyspnea Medical Decision Making COPD with acute hypercapnic respiratory failure with a PCO2 in the 90s. Patient started on BiPAP discussed with hospitalist will admit. No signs of pneumonia at this time. Improve pulmonary toilet with aggressive use of nebulizers and steroids. Medical Records I reviewed the patient's medical records. Lab Data I reviewed the patient's lab results. 10/19/22 12:50 10/19/22 12:50 Labs/Radiology: Radiology Impressions Chest X-Ray 10/19/22 12:39 IMPRESSION: 1. Emphysema. 2. Bilateral upper lobe fibrosis. Laboratory Results WBC 6.6 10^3/uL (4.0-10.0) 10/19/22 12:50 RBC 4.48 10^6/uL (4.1-5.3) 10/19/22 12:50 Hgb 13.3 g/dL (11.5-15.3) 10/19/22 12:50 Hct 45.4 % (37.0-47.0) 10/19/22 12:50 MCV 101.3 fl (81-99) H 10/19/22 12:50 MCH 29.7 pg (28.0-34.0) 10/19/22 12:50 MCHC 29.3 g/dL (30.0-36.0) L 10/19/22 12:50 RDW 13.4 % (12.1-15.1) 10/19/22 12:50 Plt Count 230 10^3/cmm (130-400) 10/19/22 12:50 MPV 9.9 fL (7.4-10.4) 10/19/22 12:50 Neut % (Auto) 65.5 % 10/19/22 12:50 Lymph % (Auto) 20.9 % 10/19/22 12:50 [place] % (Auto) 11.6 % 10/19/22 12:50 Eos % (Auto) 0.9 % 10/19/22 12:50 Baso % (Auto) 0.9 % 10/19/22 12:50 Neut # (Auto) 4.29 10^3/uL (1.8-7.7) 10/19/22 12:50 Lymph # (Auto) 1.4 10^3/uL (0.8-4.8) 10/19/22 12:50 [place] # (Auto) 0.8 10^3/uL (0.2-0.9) 10/19/22 12:50 Eos # (Auto) 0.1 10^3/uL (0.0-0.8) 10/19/22 12:50 Baso # (Auto) 0.1 10^3/uL (0.0-0.1) 10/19/22 12:50 Nucleated RBC % (auto) 0 % 10/19/22 12:50 Nucleated RBCs # 0.0 /100WBC 10/19/22 12:50 Specimen Type Arterial 10/19/22 13:13 Sample Site Radial, left 10/19/22 13:13 ABG pH 7.29 (7.35-7.45) L 10/19/22 13:13 ABG pCO2 90.1 mmHg (35-45) H* 10/19/22 13:13 ABG pO2 71.0 mmHg (80.0-100.0) L 10/19/22 13:13 ABG HCO3 43.3 mmol/L (22-26) H 10/19/22 13:13 ABG O2 Saturation 95.4 10/19/22 13:13 ABG Base Excess 13.0 mmol/L (-2.0-2.0) H 10/19/22 13:13 Nikolas Test Pos 10/19/22 13:13 A-a O2 Gradient Not Reportable 10/19/22 13:13 Hematocrit 37.9 % (37-47) 10/19/22 13:13 Hgb O2 Saturation 91.3 % (95-100) L 10/19/22 13:13 Carboxyhemoglobin 3.7 %THgb (0.4-20.1) 10/19/22 13:13 Methemoglobin 0.6 % (0.4-1.5) 10/19/22 13:13 Total Hemoglobin 12.4 g/dL (12-16) 10/19/22 13:13 Sodium 139.0 mmol/L (131-143) 10/19/22 13:13 Potassium 4.9 mmol/L (3.5-5.0) 10/19/22 13:13 Glucose 95.0 mg/dL (70-115) 10/19/22 13:13 Ionized Calcium 1.3 mmol/L (1.1-1.4) 10/19/22 13:13 O2 Delivery Device Nc 10/19/22 13:13 O2 Liters/Min 2.5 % 10/19/22 13:13 Cardiovascular Disease Specialist ID Cak 10/19/22 13:13 Sodium 139 mmol/L (136-145) 10/19/22 12:50 Potassium 5.7 mmol/L (3.5-5.1) H 10/19/22 12:50 Chloride 93 mmol/L (98-107) L 10/19/22 12:50 Carbon Dioxide 41 mmol/L (22-29) H 10/19/22 12:50 Anion Gap 10.7 (5-19) 10/19/22 12:50 BUN 11 mg/dL (8-23) 10/19/22 12:50 Creatinine 0.3 mg/dL (0.5-0.9) L 10/19/22 12:50 GFR Calculation Not Reportable 10/19/22 12:50 Glucose 104 mg/dL (65-115) 10/19/22 12:50 Calculated Osmolality 288 mOsm/kg (285-295) 10/19/22 12:50 Calcium 9.5 mg/dL (8.5-10.5) 10/19/22 12:50 Total Bilirubin 0.3 mg/dL (0.15-1.2) 10/19/22 12:50 AST 17 U/L (0-32) 10/19/22 12:50 ALT 7 U/L (0-33) 10/19/22 12:50 Alkaline Phosphatase 46 U/L (35-105) 10/19/22 12:50 Total Protein 6.8 g/dL (6.6-8.7) 10/19/22 12:50 Albumin 3.9 g/dL (3.5-5.2) 10/19/22 12:50 Globulin 2.9 g/dL (1.3-4.6) 10/19/22 12:50 Discharge Plan Discharge Patient Disposition: Admitted As Inpatient Admit Provider: Laurence John Clinical Impression: Acute on chronic respiratory failure with hypoxia and hypercapnia, COPD (chronic obstructive pulmonary disease) Condition: Stable Coding Level of Care Code ED Financial Services Manager for Jihan Jimenes
[2022-10-19 13:21] LABS: Alanine Aminotransferase 7 U/L (0-33); Albumin Level 3.9 g/dL (3.5-5.2); Alkaline Phosphatase 46 U/L (35-105); Aspartate Amino Transferase 17 U/L (0-32); Blood Urea Nitrogen 11 mg/dL (8-23); Calcium 9.5 mg/dL (8.5-10.5); Chloride 93 mmol/L (98-107); Globulin 2.9 g/dL (1.3-4.6); Glucose 104 mg/dL (65-115); Osmolality Calculated 288 mOsm/kg (285-295); Sodium 139 mmol/L (136-145); Total Bilirubin 0.3 mg/dL (0.15-1.2); Total Protein 6.8 g/dL (6.6-8.7)
[2022-10-19 13:24] LABS: ABG PH Result 7.29 (7.35-7.45); Arterial Blood Gas Hematocrit 37.9 % (37-47); Blood Gas Allen Test Pos; Blood Gas LPM 2.5 %; Blood Gas Operator Identificat CAK; Blood Gas Sample Site Radial, left; Blood Gas Sample Type Arterial; Carboxyhemoglobin 3.7 %THgb (0.4-20.1); HCO3 ABG 43.3 mmol/L (22-26); HGB O2 Sat 91.3 % (95-100); Ionized Calcium Level - ABG 1.3 mmol/L (1.1-1.4); Methemoglobin 0.6 % (0.4-1.5); Oxygen Device NC; Oxygen Saturation ABG 95.4; Potassium Level - ABG 4.9 mmol/L (3.5-5.0); Total Hemoglobin 12.4 g/dL (12-16)
[2022-10-19 13:25] LABS: ABG PCO2 90.1 mmHg (35-45)
[2022-10-19 13:30] LABS: Anion Gap 10.7 (5-19); Carbon Dioxide 41 mmol/L (22-29); Potassium 5.7 mmol/L (3.5-5.1)
[2022-10-19 15:37] LABS: ABG PCO2 82.7 mmHg (35-45); ABG PH Result 7.32 (7.35-7.45); Alveolar-Arterial Oxygen Gradi 9.7 mmHg (5-10); Arterial Blood Gas Hematocrit 38.5 % (37-47); Base Excess ABG 12.6 mmol/L (-2.0-2.0); Blood Gas Allen Test Pos; Blood Gas Operator Identificat CAL; Blood Gas Sample Site Brachial, left; Blood Gas Sample Type Arterial; Carboxyhemoglobin 3.2 %THgb (0.4-20.1); HCO3 ABG 42.2 mmol/L (22-26); HGB O2 Sat 92.2 % (95-100); Ionized Calcium Level - ABG 1.3 mmol/L (1.1-1.4); Methemoglobin 0.8 % (0.4-1.5); Oxygen Device BIPAP; Oxygen Saturation ABG 96.1; PO2 ABG 75.4 mmHg (80.0-100.0); Potassium Level - ABG 4.9 mmol/L (3.5-5.0); Total Hemoglobin 12.6 g/dL (12-16)
[2022-10-19] MEDS: sodium chloride 0.9% 1,000 ML 100 ML IV (17:42)
--- NOTE | 2022-10-19 18:31 | PM.HP ---
Providers/Chief Complaint Admitting Physician: Laurence John MD Primary Care Provider: Dr Lazo (in process of changing to Dr Lazo from Dr Joseph) Sees Dr Boykin for pulmonology (had previously seen Dr Negron) Chief Complaint: SHORTNESS OF BREATHE History of Present Illness Marie Hull is a 72 year old female who presented to the emergency room with altered mental status and difficulty breathing. Symptoms began on Wednesday or so. She noted that she was more tired than usual. She slept all day Wednesday including sleeping on the couch. This is unusual for her. She has COPD with chronic hypercapnic and hypoxic respiratory failure for which she is on home trilogy device at night. Since she slept on the couch she did not use her home ventilator on Wednesday. Her sister, who lives nearby, noted that she was difficult to arouse and keep awake over the weekend. Mrs. Hull declined coming into the hospital over the weekend but today again was very sleepy. She has chronic difficulty breathing. She had previously been going to pulmonary rehab but quit going back in July. She describes a decline in her endurance and worsening of her respiratory status with exertion since that time. Occasionally will have cough productive of some sputum. Not significantly increased lately. No fever or chills. She has been using her usual breathing treatments. She is in the process of transitioning from Dr. Joseph to Dr. Lazo for primary care and is out [facility] and she believes her allergy medication. She has her usual respiratory medications. She is on oxygen 2 to 3 L by nasal cannula chronically. Denies increasing her oxygen rate recently. She does use her trilogy device at night regularly. She has a portable pulse oximetry at home. She reports that her oxygen saturations and heart rate go up and down frequently when she checks. She does have palpitations with exertion. No reports of any chest pain. No hemoptysis. In the emergency room ABG was checked and showed 7.29/90/71/43 on 2-1/2 L by nasal cannula. She has required as much as 35% FiO2 to maintain oxygen saturations in the lower 90s. She was placed on BiPAP and request was made for admission. She has also received Solu-Medrol and breathing treatments. Mrs. Hull indicates that rental representative from [facility] checked her home BiPAP within the last couple of weeks. Her last hospitalization for respiratory issues was in 2019. Last clinic visit with pulmonology was in July. Review of Systems Const: Denies: change in weight GI: Denies: nausea, vomiting, diarrhea or constipation : Denies: difficulty voiding Musc: Reports: back pain (Right-sided lower, sharp, intermittent, brief without radiation, 2 months) Skin/Breast: Denies: sores Neuro: Denies: frequent falls Ronen/Lymph: Denies: easy bleeding Medications/Allergies Home Medications Medication Instructions Recorded Confirmed Last Taken Type aspirin 81 mg chewable tablet 81 mg PO DAILY 08/20/19 07/28/22 07/24/22 History ipratropium 0.5 mg-albuterol 3 mg 3 ml inhalation QID PRN wheezing 02/26/21 07/28/22 07/24/22 Rx (2.5 mg base)/3 mL nebulization 30 days #360 mL soln celecoxib 200 mg capsule 200 mg PO BID #180 caps 03/03/22 07/28/22 07/24/22 Rx oxygen #1 ea 03/24/22 07/28/22 07/24/22 Rx levocetirizine 5 mg tablet 5 mg PO DAILY #30 tabs 06/15/22 07/28/22 07/24/22 Rx metoprolol tartrate 25 mg tablet 25 mg PO BID #60 tabs 06/18/22 07/28/22 07/24/22 Rx albuterol sulfate 90 mcg/actuation 1 puff inhalation TID PRN 09/14/22 Unknown Rx aerosol inhaler (Ventolin HFA) Shortness Of Breath #18 grams fluticasone 100 mcg-salmeterol 50 1 inh inhalation BID #60 ea 09/14/22 Unknown Rx mcg/dose blistr powdr for inhalation (Advair Diskus) tiotropium bromide 18 mcg capsule 1 cap inhalation DAILY #1 inh 10/16/22 Unknown Rx with inhalation device (Spiriva with HandiHaler) Allergies Allergy/AdvReac Type Severity Reaction Status Date / Time levofloxacin [From Levaquin] AdvReac Intermediate ADR-Dizzine Verified 07/28/22 13:41 ss Additional Medication Information Patient is out of her Celebrex and possibly her allergy medication but other chronic medications noted above are accurate to the best of her recollection. PFSH Acute PFSH: Medical History (Updated 10/19/22 @ 20:03 by Laurence John MD) Atrial fibrillation transient, during acute COPD exacerbation in 2019 Chronic respiratory failure with hypoxia and hypercapnia COPD (chronic obstructive pulmonary disease) History of echocardiogram 08/2019 EF 65%, grade I/IV diastolic dysfunction, PAP within normal limits History of PFTs 10/2019 severe airflow obstruction, FEV1/FVC of 33%, FEV1 0.57 L 29% predicted, FVC 1.76 L 71% predicted, TLC 107%, RV 163%, reduced DLCO at 25% Mass of upper lobe of left lung cavitary appearance, never biopsied due to risk of complication and non-surgical candidate, has been stable on imaging Osteoarthritis Osteoporosis Personal history of nicotine dependence quit in 2018, but still with 2nd hand exposure Pseudomonas aeruginosa colonization Pulmonary nodule left lower lobe Seasonal allergies Surgical History (Updated 10/19/22 @ 19:38 by Laurence John MD) History of kyphoplasty (2014) L1, L2, L3, L5 performed by Dr. Roman Marquez Family History Mother CAD (coronary artery disease) Social History (Updated 10/19/22 @ 19:39 by Laurence John MD) Smoking and tobacco status: former smoker Quit status (tobacco): has quit using tobacco Year quit tobacco: 2019 - 1PPD x 50 Years Second hand smoke exposure: Yes Alcohol intake: never Substance/Drug Use: never Lives independently: Yes Household members: none Marital status: Current occupational status: retired Current gender identity: Female Vitals/I&O/Wt Last Vital Signs Temp 98.0 F 10/19/22 12:39 Pulse 78 10/19/22 15:25 Resp 20 H 10/19/22 13:10 BP 112/64 10/19/22 15:25 Pulse Ox 95 10/19/22 15:25 FiO2 35 10/19/22 13:45 Weight last 48 hrs Weight 39.916 kg Physical Exam Narrative: Patient is awake and alert, able to provide history. Oriented x3. Thin build. Normocephalic. Pupils are equal reactive. Nasopharynx is clear. Oropharynx is clear with moist membranes. Neck is supple. She is tachypneic with some pursed lip breathing. No current accessory muscle use otherwise noted. Scattered inspiratory and exported wheezes bilaterally. No rales or rhonchi noted. Slight barrel chest. Cardiovascular exam reveals a regular rate and rhythm. Abdomen is soft, nontender with positive bowel sounds. Patient does have point tenderness in the right mid back in the upper lumbar region on repeat examination. No flank tenderness per se. No tenderness over palpation of the lumbar vertebra. No peripheral edema or calf tenderness. Speech is clear, face symmetric, moves all extremities. Data 10/19/22 12:50 10/19/22 12:50 Other Labs: Radiology Impressions Chest X-Ray 10/19/22 12:39 IMPRESSION: 1. Emphysema. 2. Bilateral upper lobe fibrosis. Laboratory Results WBC 6.6 10^3/uL (4.0-10.0) 10/19/22 12:50 RBC 4.48 10^6/uL (4.1-5.3) 10/19/22 12:50 Hgb 13.3 g/dL (11.5-15.3) 10/19/22 12:50 Hct 45.4 % (37.0-47.0) 10/19/22 12:50 MCV 101.3 fl (81-99) H 10/19/22 12:50 MCH 29.7 pg (28.0-34.0) 10/19/22 12:50 MCHC 29.3 g/dL (30.0-36.0) L 10/19/22 12:50 RDW 13.4 % (12.1-15.1) 10/19/22 12:50 Plt Count 230 10^3/cmm (130-400) 10/19/22 12:50 MPV 9.9 fL (7.4-10.4) 10/19/22 12:50 Neut % (Auto) 65.5 % 10/19/22 12:50 Lymph % (Auto) 20.9 % 10/19/22 12:50 [place] % (Auto) 11.6 % 10/19/22 12:50 Eos % (Auto) 0.9 % 10/19/22 12:50 Baso % (Auto) 0.9 % 10/19/22 12:50 Neut # (Auto) 4.29 10^3/uL (1.8-7.7) 10/19/22 12:50 Lymph # (Auto) 1.4 10^3/uL (0.8-4.8) 10/19/22 12:50 [place] # (Auto) 0.8 10^3/uL (0.2-0.9) 10/19/22 12:50 Eos # (Auto) 0.1 10^3/uL (0.0-0.8) 10/19/22 12:50 Baso # (Auto) 0.1 10^3/uL (0.0-0.1) 10/19/22 12:50 Nucleated RBC % (auto) 0 % 10/19/22 12:50 Nucleated RBCs # 0.0 /100WBC 10/19/22 12:50 Specimen Type Arterial 10/19/22 15:25 Sample Site Brachial, left 10/19/22 15:25 ABG pH 7.32 (7.35-7.45) L 10/19/22 15:25 ABG pCO2 82.7 mmHg (35-45) H* 10/19/22 15:25 ABG pO2 75.4 mmHg (80.0-100.0) L 10/19/22 15:25 ABG HCO3 42.2 mmol/L (22-26) H 10/19/22 15:25 ABG O2 Saturation 96.1 10/19/22 15:25 ABG Base Excess 12.6 mmol/L (-2.0-2.0) H 10/19/22 15:25 Nikolas Test Pos 10/19/22 15:25 A-a O2 Gradient 9.7 mmHg (5-10) 10/19/22 15:25 Hematocrit 38.5 % (37-47) 10/19/22 15:25 Hgb O2 Saturation 92.2 % (95-100) L 10/19/22 15:25 Carboxyhemoglobin 3.2 %THgb (0.4-20.1) 10/19/22 15:25 Methemoglobin 0.8 % (0.4-1.5) 10/19/22 15:25 Total Hemoglobin 12.6 g/dL (12-16) 10/19/22 15:25 Sodium 139.0 mmol/L (131-143) 10/19/22 15:25 Potassium 4.9 mmol/L (3.5-5.0) 10/19/22 15:25 Glucose 99.0 mg/dL (70-115) 10/19/22 15:25 Ionized Calcium 1.3 mmol/L (1.1-1.4) 10/19/22 15:25 O2 Delivery Device Bipap 10/19/22 15:25 O2 Liters/Min 2.5 % 10/19/22 13:13 FiO2 35.0 % 10/19/22 15:25 Studio Coordinator ID Ash 10/19/22 15:25 Sodium 139 mmol/L (136-145) 10/19/22 12:50 Potassium 5.7 mmol/L (3.5-5.1) H 10/19/22 12:50 Chloride 93 mmol/L (98-107) L 10/19/22 12:50 Carbon Dioxide 41 mmol/L (22-29) H 10/19/22 12:50 Anion Gap 10.7 (5-19) 10/19/22 12:50 BUN 11 mg/dL (8-23) 10/19/22 12:50 Creatinine 0.3 mg/dL (0.5-0.9) L 10/19/22 12:50 GFR Calculation Not Reportable 10/19/22 12:50 Glucose 104 mg/dL (65-115) 10/19/22 12:50 Calculated Osmolality 288 mOsm/kg (285-295) 10/19/22 12:50 Calcium 9.5 mg/dL (8.5-10.5) 10/19/22 12:50 Total Bilirubin 0.3 mg/dL (0.15-1.2) 10/19/22 12:50 AST 17 U/L (0-32) 10/19/22 12:50 ALT 7 U/L (0-33) 10/19/22 12:50 Alkaline Phosphatase 46 U/L (35-105) 10/19/22 12:50 Total Protein 6.8 g/dL (6.6-8.7) 10/19/22 12:50 Albumin 3.9 g/dL (3.5-5.2) 10/19/22 12:50 Globulin 2.9 g/dL (1.3-4.6) 10/19/22 12:50 Laboratory Tests 10/19/22 13:13 ABG pH 7.29 L ABG pCO2 90.1 H* ABG pO2 71.0 L ABG HCO3 43.3 H ABG Base Excess 13.0 H O2 Delivery Device Nc O2 Liters/Min 2.5 Other data: Twelve-lead EKG per my interpretation was sinus rhythm at 80 bpm with PVCs, no acute ST segment changes noted A&P Assessment and plan (1) Acute on chronic respiratory failure with hypoxia and hypercapnia: Associated with alteration in mental status. Patient is chronically on home trilogy at night but 3 days prior to admission was feeling more sleepy than usual, suspect secondary to worsening hypercapnia, and fell asleep for an extended period of time on her couch without her trilogy device. She has been using her usual 2 to 3 L of oxygen by nasal cannula. Trilogy device has recently been evaluated by [facility] staff by patient's report. She follows with Dr. Boykin outpatient. (2) COPD (chronic obstructive pulmonary disease): Chronic with acute exacerbation. She herself quit smoking a couple of years ago but still has secondhand smoke exposure. (3) Palpitations: Current tachycardia. Has had at least 1 episode of transient atrial fibrillation during acute COPD exacerbation but at other times noted to have only sinus tachycardia when hospitalized. Is on chronic beta-blockade for this. (4) Back pain: Right-sided low back pain that is intermittent in nature, sharp, lasts a few seconds when occurs, without radiation or sciatica, subacute being present for several months. Not escalating in severity over time but not improving. Worse with movement. Suspect muscular but she does have a history of previous multilevel lumbar kyphoplasty and known osteoporosis. (5) Osteoarthritis: Primary osteoarthritis involving multiple joints, not acute but out of her home Celebrex (6) Osteoporosis: Secondary to age and intermittent steroid use, not known to have an acute fracture (7) Body mass index less than 16.5: Plan Hyperkalemia noted on admission labs Observation admission Continue BiPAP Repeat ABG in the morning Systemic and inhaled steroids Pulmonary toilet Doxycycline empirically Status post 1 L of IV fluids Repeat BMP Continue home beta-blockade Check TSH Resume Celebrex, will need prescription at discharge Claritin for allergy symptoms Calcium plus vitamin D Nutritional supplementation Pulmonary rehab referral Supportive care otherwise Lovenox for DVT prophylaxis Protonix for GI prophylaxis Anticipate discharge home with outpatient follow-up to Dr. Lazo who will be a new primary care provider for her and resumption of pulmonary rehab Findings, concerns and plans were discussed with Mrs. Hull and she was given an opportunity to ask questions Full code as per discussion with Mrs. Hull Attestations Medical Necessity Statement*: Currently anticipate a stay acute on chronic hypercapnic and hypoxic respiratory failure as described above. She is more alert with BiPAP treatment and currently with improved respiratory status. Plans are as noted above. and Moderate Time for a total of 65 minutes, includes reviewing past or interval history, examining/interviewing patient, placing orders and documenting encounter Diagnoses Acute on chronic respiratory failure with hypoxia and hypercapnia J96.21; J96.22 COPD (chronic obstructive pulmonary disease) J44.9 Palpitations R00.2 Back pain M54.9 Osteoarthritis M19.90 Osteoporosis M81.0 Body mass index less than 16.5 Z68.1
[2022-10-19] MEDS: enoxaparin 40 mg/0.4 mL Syringe SUBCUT (19:55)
[2022-10-19] MEDS: metoprolol tartrate 25 mg Tablet PO (20:00)
[2022-10-19] MEDS: CELEcoxib 200 mg Capsule PO (20:00)
[2022-10-19] MEDS: budesonide 0.5 mg/2 mL Neb INHALATION (20:59)
[2022-10-20] VITALS (14 sets, daily range): BP systolic 117–155; BP diastolic 64–74; PULSE 74–95; RESP 14–18; TEMP 36.4–37.1; O2SAT 93–98
[2022-10-20] MEDS: ipratropium-albuterol 3 mL Neb INHALATION ×4 (01:58→21:23)
[2022-10-20 05:01] LABS: ABG PH Result 7.35 (7.35-7.45); Base Excess ABG 13.4 mmol/L (-2.0-2.0); Blood Gas Allen Test Pos; Blood Gas Sample Site Radial, left; Blood Gas Sample Type Arterial; HCO3 ABG 42.1 mmol/L (22-26); Oxygen Device BIPAP
[2022-10-20 05:07] LABS: ABG PCO2 76.7 mmHg (35-45)
[2022-10-20 05:44] LABS: Anion Gap 8.9 (5-19); Blood Urea Nitrogen 22 mg/dL (8-23); Calcium 9.1 mg/dL (8.5-10.5); Carbon Dioxide 37 mmol/L (22-29); Chloride 93 mmol/L (98-107); Glucose 155 mg/dL (65-115); Osmolality Calculated 284 mOsm/kg (285-295); Potassium 4.9 mmol/L (3.5-5.1); Sodium 134 mmol/L (136-145); Thyroid Stimulating Hormone 0.38 uIU/mL (0.27-4.20)
--- NOTE | 2022-10-20 07:10 | PC.NURSE ---
Bedside report completed with Dionna FREGOSO at this time. Patient is resting in bed. No obvious signs of distress.
[2022-10-20] MEDS: budesonide 0.5 mg/2 mL Neb INHALATION ×2 (08:20→21:23)
[2022-10-20] MEDS: CELEcoxib 200 mg Capsule PO ×2 (09:34→20:36)
[2022-10-20] MEDS: doxycycline 100 mg Tablet PO ×2 (09:34→18:20)
[2022-10-20] MEDS: calcium carb-vit d 600mg/400unit 1 Tablet 1 EACH PO ×2 (09:34→18:20)
[2022-10-20] MEDS: metoprolol tartrate 25 mg Tablet PO ×2 (09:34→20:36)
[2022-10-20] MEDS: predniSONE 20 mg Tablet 40 MG PO (09:34)
[2022-10-20] MEDS: loratadine 10 mg Tablet PO (09:34)
[2022-10-20] MEDS: pantoprazole DR 40 mg Tablet PO (09:35)
--- NOTE | 2022-10-20 10:31 | PC.CHAP ---
Pastoral Care Encounter/Spiritual Assessment Type of Contact [] Declined supervisor cleaning and annealing visit [] Patient/Family/Request visit [] Outpatient visit [] Follow-up visit [] Physician referral [] Code/Alert [x] Routine visit [] Staff referral [] Actively dying [] Patient sleeping [x] Family support [] [] Out of room [] Palliative care [] [] Receiving care in room [] Pre-surgical visit [] Trauma [] Long length of stay [] ICU visit [] Other: Relational/Emotional Strength [x] Patient feels connected with others/family/visitors/staff [] Distress [] Loneliness/isolation [] Abandonment Spirituality of Patient [x] Person of Valerie [] Attends Amish of their Valerie [x] Believes in Prayer [] Reads Bible or Pentecostal materials [] There are Spiritual issues to be addressed Civil Structural Designer Interventions [x] Prayer [] Active listening [] Non-anxious presence [x] Spiritual/emotional support [] Crisis/trauma care [] Spiritual counseling [] Bereavement support [] Provided bereavement packet [] Provided Bible/devotional materials [] Provided toy/stuffed animal, coloring book to patient or family member [] Provided Communion [] Anointing/[place] [] Salvation [x] Completed spiritual assessment [] Other: Impact on Illness or Injury [] Angry [] Fearful [] Anxious [] Often cries [] Exhaustion [] Unable to work [] Unable to attend episcopal [] Unable to walk/stand [] Unable to read [] Unable to drive [] Unable to eat/drink [] Unable to sleep [] Unable to be with family [] Patient intubated [] Other: Summary Time spent with patient 10 min
[2022-10-20 11:04] LABS: NT Pro B Type Natriuretic Pept 472 pg/mL (0-125); Procalcitonin 0.04 ng/mL (0-0.5); Vitamin B12 188 pg/mL (232-1245)
[2022-10-20 11:09] LABS: Estmated Average Glucose 91; Hemoglobin A1C 4.8 % (4.0-6.0)
[2022-10-20 11:15] LABS: Iron 50 ug/dL (37-145); Percent Saturation 19.6 % (20-50); Total Iron Binding Capacity 255 mcg/dl; Unsaturated Iron Binding 205 ug/dL (112-347)
[2022-10-20] MEDS: cyanocobalamin 1,000 mcg/mL SDV 1000 MCG IM (12:32)
[2022-10-20 13:49] LABS: D Dimer 0.74 ug/mIFEU (0-0.59)
--- NOTE | 2022-10-20 14:07 | CTR_ITS ---
PROCEDURE INFORMATION: Exam: CTA Chest With Contrast Exam date and time: 10/20/2022 3:32 PM Age: 72 years old Clinical indication: Shortness of breath; Additional info: Copd, resp failure TECHNIQUE: Imaging protocol: Computed tomographic angiography of the chest with contrast. 3D rendering (Not supervised by radiologist): MIP and/or 3D reconstructed images were created by the technologist. Radiation optimization: All CT scans at this facility use at least one of these dose optimization techniques: automated exposure control; mA and/or kV adjustment per patient size (includes targeted exams where dose is matched to clinical indication); or iterative reconstruction. Contrast material: OMNI 350; Contrast volume: 62 ml; Contrast route: INTRAVENOUS (IV); REPORTING DATA: Count of CT and Cardiac NM exams in prior 12 months: This patient has received 2 known CTs and 0 known cardiac nuclear medicine studies in the 12 months prior to the current study. COMPARISON: CT angio chest PE protcl [id number] 01/11/2020 10:05 AM RADIATION DOSE METRICS: Total DLP (mGy-cm): 152.8 FINDINGS: Pulmonary arteries: Normal. No pulmonary emboli. Aorta: Atherosclerotic disease of the thoracic aorta with tortuosity. Lungs: Severe emphysematous change with fibrosis and scarring in the upper lungs/lung apices along with component of pleural thickening with calcification within the lung apices bilaterally. These findings appear chronic with prior exam March 23, 2022. No interval new focal infiltrate or consolidation. Stable appearance of small pulmonary nodule lower left lung with prior exam. A component of chronic pleural thickening in the lung bases with possible trace effusion. Pleural spaces: See Lungs finding. Heart: No significant cardiomegaly. No pericardial effusion. Coronary artery calcification is seen. Lymph nodes: Unremarkable. No enlarged lymph nodes. Bones/joints: Prior vertebroplasties T11 through L3, as noted with prior exam, with old compression deformities. Mild old compression deformity of T6, as noted with prior exam. Soft tissues: Unremarkable. CT/CT angio chest PE protcl [id number] IMPRESSION: 1. No CT findings of pulmonary embolus. 2. Severe emphysematous change with chronic fibrosis and scarring and chronic pleural thickening, along with stable small pulmonary nodule lower left lung when correlated with prior exam. 3. Probable trace basilar effusions as well. 4. Atherosclerotic disease of the thoracic aorta and coronary artery calcifications. 5. Chronic bony changes thoracolumbar spine including component of chronic compression deformity and prior vertebroplasties of the lower thoracic and upper lumbar spine. COMMENTS: In the absence of a history or active diagnosis of lung cancer, it is recommended that this patient with emphysema be evaluated for enrollment in a low dose CT lung cancer screening program.
--- NOTE | 2022-10-20 14:08 | USCV_ITS ---
Marie Hull Age: 72 Gender: F : 1950 Exam Date: 10/20/2022 15:04 Ordering Phys: Rishabh Christian MD Technologist: CT Exam Location: [facility] [place] Indication: chest pain sob BP: 140 / 69 HR: 88 Rhythm: Sinus Technical Quality: Adequate MEASUREMENTS (Male / Female) Normal Values 2D ECHO LV Diastolic Diameter PLAX 3.3 cm 4.2 - 5.9 / 3.9 - 5.3 cm LV Systolic Diameter PLAX 2.2 cm IVS Diastolic Thickness 0.6 cm 0.6 - 1.0 / 0.6 - 0.9 cm IVS Systolic Thickness 0.9 cm LVPW Diastolic Thickness 1.1 cm 0.6 - 1.0 / 0.6 - 0.9 cm LVPW Systolic Thickness 1.4 cm LVOT Diameter 2.0 cm LV Ejection Fraction 2D Teich 63.6 % LV Ejection Fraction MOD 2C 74.9 % LV Ejection Fraction 2C AL 74.8 % LA Diameter 3.0 cm IVC Diameter 1.3 cm M-MODE Aortic Annulus Diameter 3.6 cm LA Ao Ratio MM 0.9 MV E Point Septal Separation 1.0 cm DOPPLER AV Peak Velocity 111.0 cm/s LVOT Peak Velocity 109.0 cm/s AV Area Cont Eq vti 3.2 cm squared AV Area Cont Eq pk 3.1 cm squared MV Area PHT 5.0 cm squared Mitral E to A Ratio 0.9 MV E' Velocity 58.0 cm/s Mitral E to MV E' Ratio 10.6 Mitral E to LV E' Lateral Ratio 11.4 Mitral E to LV E' Septal Ratio 10.0 TR Peak Velocity 258.7 cm/s TR Peak Gradient 26.8 mmHg Right Atrial Pressure 3.0 mmHg Pulmonary Artery Systolic Pressu 29.8 mmHg FINDINGS Left Ventricle Normal left ventricular size, systolic function and wall thickness, with no regional wall motion abnormalities. Grade I/IV diastolic dysfunction (abnormal relaxation filling pattern), normal to mildly elevated filling pressures. Left ventricular ejection fraction is estimated at 65 %. Right Ventricle Normal right ventricular size and systolic function. Normal right ventricular systolic pressure. Right Atrium The right atrium is normal in size. Left Atrium The left atrium is normal in size. Mitral Valve Structurally normal mitral valve without significant stenosis or prolapse. There is no mitral regurgitation. Aortic Valve Structurally normal aortic valve without significant sclerosis or stenosis. There is no aortic regurgitation. Tricuspid Valve Structurally normal tricuspid valve without significant stenosis or regurgitation. Pulmonary artery systolic pressure is normal. Pulmonic Valve Pulmonic valve not well visualized. Pericardium Normal pericardium without effusion. Aorta Normal ascending aorta dimension. IVC The inferior vena cava appears normal. CONCLUSIONS Normal left ventricular size, systolic function and wall thickness, with no regional wall motion abnormalities. Grade I/IV diastolic dysfunction (abnormal relaxation filling pattern), normal to mildly elevated filling pressures. Left ventricular ejection fraction is estimated at 65 %. No change from the previous echo done August 2019 Dr. Jay Stark MD (Electronically Signed) Final Date: 20 October 2022 18:07 S
--- NOTE | 2022-10-20 14:09 | PM.PN ---
Subjective Subjective: Hospital course, labs. Today morning seen with family at bedside. Patient was on home BiPAP settings overnight. Morning ABG appreciated. Currently on baseline 2 L of oxygen supplementation. States breathing is better and almost back to her baseline. As per the family and patient she gets extremely short of breath requiring accessory muscle on minimal exertion which has been getting worse for last 4 to 5 months. Shortness of breath gets worse on laying flat. Denies any sick contacts, cough or runny nose more than her baseline. Vitals/I&O/Wt Last Vital Signs Temp 98.0 F 10/20/22 12:00 Pulse 86 10/20/22 13:54 Resp 16 10/20/22 13:54 BP 124/64 10/20/22 12:00 Pulse Ox 93 10/20/22 13:54 O2 Del Method 10/20/22 13:54 O2 Flow Rate 2 10/20/22 12:00 FiO2 2 10/20/22 13:54 10/19/22 10/20/22 10/20/22 22:59 06:59 14:59 Intake Total 458.333 / 458.333 60 / 518.333 360 / 360 Balance 458.333 / 458.333 60 / 518.333 360 / 360 Weight last 48 hrs Weight 39.916 kg Weight 39.916 kg Physical Exam Narrative: General: In mild distress secondary to difficulty in breathing, pursed lip breathing during conversation, on 2 to 3 L oxygen supplementation. Chronically sick appearing, frail, cachectic HEENT: PERRLA, pupils bilaterally equal and reactive Chest:Bronchial breath sounds b/l , bilateral rhonchi all over lung marquis along with coarse crackles CVS: S1-S2 regular, no murmurs, no tachycardia, no gallops, no rubs Abdomen: Soft, nontender, no organomegaly, bowel sounds present, morbidly obese Neuro: No focal deficits, no facial deformity, AO x3, power 5/5 in all limbs Data 10/19/22 12:50 10/20/22 04:38 A&P Assessment and plan (1) Acute on chronic respiratory failure with hypoxia and hypercapnia: Follows up with pulmonology as an outpatient. Uses Trelegy at home along with 2 to 3 days of oxygen supplementation when awake. Appreciate morning ABG. PCO2 coming back to baseline. Patient still looks in respiratory distress on minimal exertion and conversation. Continue with budesonide twice daily, DuoNebs every 6 hour. Increase Solu-Medrol to 40 mg every 8 hourly. Check urine Legionella, bacterial antigen, MRSA swab, respiratory viral panel, D-dimer. If D-dimer elevated will plan for CTA chest otherwise can get plain CT chest for further evaluation of baseline COPD. For now we will hold off on antibiotics. Solu-Medrol associated with alteration in mental status. Cannot rule out baseline pulmonary hypertension. Check echocardiogram. Oral Lasix 20 mg one-time. (2) COPD (chronic obstructive pulmonary disease): Chronic with acute exacerbation. She herself quit smoking a couple of years ago but still has secondhand smoke exposure. (3) Palpitations: Paroxysmal atrial fibrillation. Continue to monitor on telemetry. If needed can start on low-dose Cardizem. (4) Back pain: Most likely musculoskeletal. (5) Body mass index less than 16.5: Most likely in setting of advanced COPD. Check iron panel, vitamin B12, folate level. Replete accordingly. Monitor electrolytes along with magnesium and phosphorus. Regular diet with protein shakes. Plan CODE STATUS: Discussed in detail with patient and family members at bedside. Discussed given advanced COPD unfortunately if patient ends up on mechanical ventilation she it will be difficult to get her off the ventilator. Patient and family verbalized understanding and would want to do everything to make her better and keep her alive. Full code. Lovenox for DVT prophylaxis Protonix for PUD prophylaxis. Attestations Medical Necessity Statement*: Marie Hull is being changed to inpatient status as stay will now exceed 2 midnights. Ongoing hospital care is necessary for severe COPD exacerbation leading to hypoxic and hypercapnic respiratory failure requiring IV steroids and multiple nebulization treatment Coding Level of Care Code 15975 High MDM includes number and complexity of problems actively addressed during encounter, amount and/or complexity of data reviewed/ordered (Discussed CODE STATUS, plan of treatment in detail and medication changes.) [ previous or external records, resulted lab(s)/test(s), ordered lab(s)/test(s), independent historian, independent test interpretation and other healthcare professional discussion] and described risk of complication, morbidity or mortality of management as documented Diagnoses Acute on chronic respiratory failure with hypoxia and hypercapnia J96.21; J96.22 COPD (chronic obstructive pulmonary disease) J44.9 Palpitations R00.2 Back pain M54.9 Body mass index less than 16.5 Z68.1
[2022-10-20 14:10] LABS: Folate Level 13.2 ng/mL (4.8-37.3)
[2022-10-20] MEDS: FUROsemide 20 mg Tablet PO (14:18)
[2022-10-20 15:22] LABS: Adenovirus Not Detected (NOT DETECT); Chlamydia Pneumoniae Not Detected (NOT DETECT); Coronavirus 229E,HKU1,NL63,OC4 Not Detected (NOT DETECT); Human Metapneumovirus Not Detected (NOT DETECT); Human Rhinovirus/Enterovirus Not Detected (NOT DETECT); Influenza A Not Detected (NOT DETECT); Influenza A H1 Not Detected (NOT DETECT); Influenza A H1-2009 Not Detected (NOT DETECT); Influenza A H3 Not Detected (NOT DETECT); Influenza B Not Detected (NOT DETECT); Mycoplasma Pneumoniae Not Detected (NOT DETECT); Parainfluenza Virus Type 1 Not Detected (NOT DETECT); Parainfluenza Virus Type 2 Not Detected (NOT DETECT); Parainfluenza Virus Type 3 Not Detected (NOT DETECT); Parainfluenza Virus Type 4 Not Detected (NOT DETECT); Respiratory Syncytial Virus A Not Detected (NOT DETECT); Respiratory Syncytial Virus B Not Detected (NOT DETECT); SARS-COV-2 Not Detected (NOT DETECT)
[2022-10-20] MEDS: iohexol 350 mg/mL 500 mL Btl (per mL) IV (15:38)
[2022-10-20] MEDS: enoxaparin 40 mg/0.4 mL Syringe SUBCUT (18:58)
[2022-10-20 20:29] LABS: Add Urine Microscopic? NO; Charge for UA Resulting for Rev
[2022-10-20 20:43] LABS: Bilirubin Urine Neg (Negative); Blood Urine Neg (Negative); Glucose Urine UA Norm (Normal); Ketones Urine Negative (Negative); Leukocyte Esterase Urine Negative (Negative); Nitrate Urine Negative (Negative); Protein Urine Neg (Negative); Urine Appearance Clear (CLEAR); Urine Color Yellow (Yellow); Urobilinogen Urine Norm (Negative); pH Urine 7 (5-7)
[2022-10-21] VITALS (17 sets, daily range): BP systolic 117–150; BP diastolic 53–74; PULSE 69–97; RESP 14–20; TEMP 36.5–36.9; O2SAT 90–97
[2022-10-21] MEDS: ipratropium-albuterol 3 mL Neb INHALATION ×4 (02:00→21:11)
[2022-10-21 05:28] LABS: Hematocrit 38.5 % (37.0-47.0); Hemoglobin 11.6 g/dL (11.5-15.3); Lymphocytes # 0.6 10^3/uL (0.8-4.8); Lymphocytes % 6.9 %; Mean Corpuscular HGB Conc 30.1 g/dL (30.0-36.0); Mean Corpuscular Hemoglobin 29.5 pg (28.0-34.0); Monocytes # 0.5 10^3/uL (0.2-0.9); Monocytes % 5.2 %; Neutrophils # 8.12 10^3/uL (1.8-7.7); Neutrophils % 87.5 %; Nucleated Red Blood Cells % 0 %; Platelet Count 205 10^3/cmm (130-400); Red Blood Count 3.93 10^6/uL (4.1-5.3); Red Cell Distribution Width 13.7 % (12.1-15.1); White Blood Count 9.3 10^3/uL (4.0-10.0)
[2022-10-21 05:48] LABS: Alanine Aminotransferase 7 U/L (0-33); Albumin Level 3.6 g/dL (3.5-5.2); Alkaline Phosphatase 37 U/L (35-105); Anion Gap 9.6 (5-19); Aspartate Amino Transferase 14 U/L (0-32); Blood Urea Nitrogen 22 mg/dL (8-23); Calcium 9.7 mg/dL (8.5-10.5); Carbon Dioxide 40 mmol/L (22-29); Chloride 93 mmol/L (98-107); Globulin 3.1 g/dL (1.3-4.6); Glucose 130 mg/dL (65-115); Osmolality Calculated 291 mOsm/kg (285-295); Potassium 4.6 mmol/L (3.5-5.1); Sodium 138 mmol/L (136-145); Total Bilirubin 0.2 mg/dL (0.15-1.2); Total Protein 6.7 g/dL (6.6-8.7)
[2022-10-21 05:49] LABS: Chol HDL Ratio 3.09 mg/dL (0.0-4.40); Cholesterol 176 mg/dL (0-200); HDL Cholesterol 57 mg/dL (60-100); LDL Cholesterol Calculated 106 mg/dL (50-129); Triglycerides 67 mg/dL (0-150); VLDL Cholestrol Calculation 13 mg/dL (0-30)
[2022-10-21] MEDS: budesonide 0.5 mg/2 mL Neb INHALATION ×2 (08:01→21:11)
[2022-10-21] MEDS: cyanocobalamin 1,000 mcg Tablet 500 MCG PO (09:16)
[2022-10-21] MEDS: doxycycline 100 mg Tablet PO ×2 (09:19→17:35)
[2022-10-21] MEDS: CELEcoxib 200 mg Capsule PO ×2 (09:19→21:09)
[2022-10-21] MEDS: calcium carb-vit d 600mg/400unit 1 Tablet 1 EACH PO ×2 (09:19→17:35)
[2022-10-21] MEDS: metoprolol tartrate 25 mg Tablet PO ×2 (09:20→21:09)
[2022-10-21] MEDS: loratadine 10 mg Tablet PO (09:20)
[2022-10-21] MEDS: pantoprazole DR 40 mg Tablet PO (09:20)
--- NOTE | 2022-10-21 14:07 | PM.PN ---
Subjective Subjective: No acute vents overnight. Patient is seen laying comfortably in bed with family at bedside. States breathing is almost to baseline. Patient looks less dyspneic today. Denies any nausea vomiting, headache. Discussed results of multiple tests done yesterday. Vitals/I&O/Wt Last Vital Signs Temp 98.5 F 10/21/22 11:41 Pulse 82 10/21/22 13:30 Resp 16 10/21/22 13:22 BP 143/63 10/21/22 11:41 Pulse Ox 90 10/21/22 13:22 O2 Del Method 10/21/22 13:22 O2 Flow Rate 2 10/21/22 13:22 FiO2 35 10/21/22 02:03 10/20/22 10/21/22 10/21/22 22:59 06:59 14:59 Intake Total 240 / 600 Output Total 50 / 50 Balance 240 / 600 -50 / 550 Weight last 48 hrs Weight 39.916 kg Physical Exam Narrative: General: In mild distress secondary to difficulty in breathing, pursed lip breathing during conversation, on 2 to 3 L oxygen supplementation. Chronically sick appearing, frail, cachectic HEENT: PERRLA, pupils bilaterally equal and reactive Chest:Bronchial breath sounds b/l , bilateral rhonchi all over lung marquis along with coarse crackles CVS: S1-S2 regular, no murmurs, no tachycardia, no gallops, no rubs Abdomen: Soft, nontender, no organomegaly, bowel sounds present, morbidly obese Neuro: No focal deficits, no facial deformity, AO x3, power 5/5 in all limbs Data 10/21/22 05:10 10/21/22 05:10 Micro: Microbiology 10/20/22 15:50 Bacterial Antigens - Final Urine Kidney A&P Assessment and plan (1) Acute on chronic respiratory failure with hypoxia and hypercapnia: Follows up with pulmonology as an outpatient. Uses Trelegy at home along with 2 to 3 days of oxygen supplementation when awake. Appreciate morning ABG. PCO2 coming back to baseline. Patient still looks in respiratory distress on minimal exertion and conversation. Continue with budesonide twice daily, DuoNebs every 6 hour. Change Solu-Medrol 40 mg twice daily. Urine Legionella, bacterial antigen negative. Urine culture pending. MRSA swab not collected. In past negative. CTA results appreciated. Negative for acute pulmonary embolism or consolidation. Consistent with emphysema and pulmonary fibrosis. Echocardiogram results appreciated. Most likely patient will benefit from as needed Lasix. Oxygen supplementation keeping saturation over 88%. Given history of Pseudomonas colonization of pulmonary tree for now we will start patient on oral Levaquin for at least 7-day course. Continue doxycycline started on admission.. (2) COPD (chronic obstructive pulmonary disease): Chronic with acute exacerbation. She herself quit smoking a couple of years ago but still has secondhand smoke exposure. (3) Chronic obstructive pulmonary emphysema: (4) Pulmonary fibrosis: (5) Pseudomonas aeruginosa colonization: (6) Paroxysmal A-fib: Seen on telemetry. Started on low-dose Cardizem 30 mg twice daily. Not a good candidate for anticoagulation given advanced age, high risk of fall (7) Body mass index less than 16.5: Most likely in setting of advanced COPD. Check iron panel, vitamin B12, folate level. Replete accordingly. Monitor electrolytes along with magnesium and phosphorus. Regular diet with protein shakes. (8) Back pain: Most likely musculoskeletal. Plan Vitamin B12 deficiency: Received cyanocobalamin one-time IM yesterday. Continue with oral supplementation daily. CODE STATUS: Discussed in detail with patient and family members at bedside. Discussed given advanced COPD unfortunately if patient ends up on mechanical ventilation she it will be difficult to get her off the ventilator. Patient and family verbalized understanding and would want to do everything to make her better and keep her alive. Full code. Lovenox for DVT prophylaxis Protonix for PUD prophylaxis. Attestations Medical Necessity Statement*: Requires further hospitalization for management of COPD exacerbation in a patient with chronic severe emphysema and pulmonary fibrosis, paroxysmal A-fib Diagnoses Acute on chronic respiratory failure with hypoxia and hypercapnia J96.21; J96.22 COPD (chronic obstructive pulmonary disease) J44.9 Chronic obstructive pulmonary emphysema J43.9 Pulmonary fibrosis J84.10 Pseudomonas aeruginosa colonization Z22.39 Paroxysmal A-fib I48.0 Body mass index less than 16.5 Z68.1 Back pain M54.9
[2022-10-21] MEDS: dilTIAZem 30 mg Tablet PO ×2 (14:52→21:09)
[2022-10-21] MEDS: enoxaparin 40 mg/0.4 mL Syringe SUBCUT (17:34)
[2022-10-22] VITALS (10 sets, daily range): BP systolic 123–167; BP diastolic 53–73; PULSE 64–82; RESP 15–19; TEMP 36.3–36.8; O2SAT 95–98
[2022-10-22] MEDS: ipratropium-albuterol 3 mL Neb INHALATION ×2 (01:34→07:35)
[2022-10-22] MEDS: levoFLOXacin 750 mg Tablet PO (05:02)
[2022-10-22 05:21] LABS: Eosinophils % 0.1 %; Hematocrit 38.2 % (37.0-47.0); Hemoglobin 11.6 g/dL (11.5-15.3); Lymphocytes # 0.5 10^3/uL (0.8-4.8); Lymphocytes % 6.8 %; Mean Corpuscular HGB Conc 30.4 g/dL (30.0-36.0); Mean Corpuscular Hemoglobin 29.4 pg (28.0-34.0); Mean Corpuscular Volume 96.7 fl (81-99); Mean Platelet Volume 9.9 fL (7.4-10.4); Monocytes # 0.8 10^3/uL (0.2-0.9); Monocytes % 9.6 %; Neutrophils # 6.59 10^3/uL (1.8-7.7); Nucleated Red Blood Cells % 0 %; Platelet Count 206 10^3/cmm (130-400); Red Blood Count 3.95 10^6/uL (4.1-5.3); Red Cell Distribution Width 13.9 % (12.1-15.1); White Blood Count 7.9 10^3/uL (4.0-10.0)
[2022-10-22 05:49] LABS: Alanine Aminotransferase 8 U/L (0-33); Albumin Level 3.4 g/dL (3.5-5.2); Alkaline Phosphatase 35 U/L (35-105); Anion Gap 9.5 (5-19); Aspartate Amino Transferase 12 U/L (0-32); Blood Urea Nitrogen 21 mg/dL (8-23); Calcium 9.9 mg/dL (8.5-10.5); Carbon Dioxide 39 mmol/L (22-29); Chloride 94 mmol/L (98-107); Globulin 2.8 g/dL (1.3-4.6); Glucose 111 mg/dL (65-115); Osmolality Calculated 290 mOsm/kg (285-295); Potassium 4.5 mmol/L (3.5-5.1); Sodium 138 mmol/L (136-145); Total Bilirubin 0.2 mg/dL (0.15-1.2); Total Protein 6.2 g/dL (6.6-8.7)
[2022-10-22] MEDS: budesonide 0.5 mg/2 mL Neb INHALATION (07:35)
[2022-10-22] MEDS: cyanocobalamin 1,000 mcg Tablet 500 MCG PO (09:39)
[2022-10-22] MEDS: dilTIAZem 30 mg Tablet PO (09:40)
[2022-10-22] MEDS: doxycycline 100 mg Tablet PO (09:40)
[2022-10-22] MEDS: calcium carb-vit d 600mg/400unit 1 Tablet 1 EACH PO (09:40)
[2022-10-22] MEDS: loratadine 10 mg Tablet PO (09:41)
[2022-10-22] MEDS: pantoprazole DR 40 mg Tablet PO (09:41)
[2022-10-22] MEDS: CELEcoxib 200 mg Capsule PO (09:55)
[2022-10-22] MEDS: metoprolol tartrate 25 mg Tablet PO (09:55)
--- NOTE | 2022-10-22 10:02 | P.DS_ITS ---
Discharge Providers Date of Admission: 10/20/22 14:18 Date of Discharge: October 22, 2022 Attending Provider at Admission: Laurence John MD Attending Provider at Discharge: Rishabh Christian MD Primary Care Provider: Kahlil Joseph MD Diagnoses at Discharge Discharge Diagnosis (1) Acute on chronic respiratory failure with hypoxia and hypercapnia: Status: Acute (2) COPD (chronic obstructive pulmonary disease): Status: Chronic (3) Chronic obstructive pulmonary emphysema: Status: Acute (4) Pulmonary fibrosis: Status: Acute (5) Pseudomonas aeruginosa colonization: Status: Acute (6) Paroxysmal A-fib: Status: Acute (7) Body mass index less than 16.5: Status: Acute (8) Back pain: Status: Acute Reason for Visit Reason for Visit: SHORTNESS OF BREATHE Brief History: History as per HPI: Marie Hull is a 72 year old female who presented to the emergency room with altered mental status and difficulty breathing.? Symptoms began on Wednesday or so.? She noted that she was more tired than usual.? She slept all day Wednesday including sleeping on the couch.? This is unusual for her.? She has COPD with chronic hypercapnic and hypoxic respiratory failure for which she is on home trilogy device at night.? Since she slept on the couch she did not use her home ventilator on Wednesday.? Her sister, who lives nearby, noted that she was difficult to arouse and keep awake over the weekend.? Mrs. Hull declined coming into the hospital over the weekend but today again was very sleepy.? She has chronic difficulty breathing.? She had previously been going to pulmonary rehab but quit going back in July.? She describes a decline in her endurance and worsening of her respiratory status with exertion since that time.? Occasionally will have cough productive of some sputum.? Not significantly increased lately.? No fever or chills.? She has been using her usual breathing treatments.? She is in the process of transitioning from Dr. Joseph to Dr. Lazo for primary care and is out of [facility] and she believes her allergy medication.? She has her usual respiratory medications.? She is on oxygen 2 to 3 L by nasal cannula chronically.? Denies increasing her oxygen rate recently.? She does use her trilogy device at night regularly.? She has a portable pulse oximetry at home.? She reports that her oxygen saturations and heart rate go up and down frequently when she checks.? She does have palpitations with exertion.? No reports of any chest pain.? No hemoptysis.? In the emergency room ABG was checked and showed 7.29/90/71/43 on 2-1/2 L by nasal cannula.? She has required as much as 35% FiO2 to maintain oxygen saturations in the lower 90s.? She was placed on BiPAP and request was made for admission.? She has also received Solu-Medrol and breathing treatments.? Mrs. Hull indicates that bilingual sales representative from [facility] checked her home BiPAP within the last couple of weeks.? Her last hospitalization for respiratory issues was in 2019.? Last clinic visit with pulmonology was in July. Hospital Course Hospital Course Patient was roomed to the hospital further evaluation and management of hypoxic and hypercapnic respiratory failure in setting of COPD exacerbation. She was started on IV steroids along with inhalation treatment. Consolidation was ruled out with negative CT examination. D-dimer was negative. A blood culture remain negative. Echocardiogram was done which showed an EF of 65% with grade 1 diastolic dysfunction. Patient was found to have tachycardia for which she was started on oral Cardizem. She responded well to the treatment and has been on her baseline oxygen supplementation and Trelegy for last 24 hours. On review of records it seems patient is chronically colonized with Pseudomonas susceptible to Levaquin. As per patient's family is a possible allergy to Levaquin but they are not sure. She has been discharged hemodynamically stable condition on inhalation treatment, steroid taper, oral Cardizem along with Levaquin course of 7 days. Allergy list were discussed in detail with the patient and she verbalized understanding and is agreeable to try Levaquin. Physical Exam Narrative: General: No acute distress, AOx3, obese oxygen supplementation, family at bedside Chronically sick appearing, frail, cachectic HEENT: PERRLA, pupils bilaterally equal and reactive Chest:Bronchial breath sounds b/l , bilateral rhonchi all over lung marquis along with coarse crackles CVS: S1-S2 regular, no murmurs, no tachycardia, no gallops, no rubs Abdomen: Soft, nontender, no organomegaly, bowel sounds present, morbidly obese Neuro: No focal deficits, no facial deformity, AO x3, power 5/5 in all limbs Discharge Data Studies Completed and Pending Completed Studies During Hospitalization Category Date Time Status CTA chest [CT angio chest PE protcl [id number]] Routine Cat Scan 10/20/22 14:07 Completed XR chest 1V portable [id number] Stat Exams 10/19/22 12:39 Completed CV. echo complete* [id number] Routine Ultrasound 10/20/22 14:08 Completed Pending at discharge Category Date Time Status Sputum Culture and Gram Stain Stat Lab 10/20/22 10:30 Uncollected Radiology Impressions Chest X-Ray 10/19/22 12:39 IMPRESSION: 1. Emphysema. 2. Bilateral upper lobe fibrosis. Chest CTA 10/20/22 14:07 IMPRESSION: 1. No CT findings of pulmonary embolus. 2. Severe emphysematous change with chronic fibrosis and scarring and chronic pleural thickening, along with stable small pulmonary nodule lower left lung when correlated with prior exam. 3. Probable trace basilar effusions as well. 4. Atherosclerotic disease of the thoracic aorta and coronary artery calcifications. 5. Chronic bony changes thoracolumbar spine including component of chronic compression deformity and prior vertebroplasties of the lower thoracic and upper lumbar spine. COMMENTS: In the absence of a history or active diagnosis of lung cancer, it is recommended that this patient with emphysema be evaluated for enrollment in a low dose CT lung cancer screening program. Echocardiogram CONCLUSIONS ?Normal left ventricular size, systolic function and wall ?thickness, with no regional wall motion abnormalities. Grade ?I/IV diastolic dysfunction (abnormal relaxation filling ?pattern), normal to mildly elevated filling pressures. Left ?ventricular ejection fraction is estimated at 65 %. ?No change from the previous echo done August 2019 ?Dr. Jay Stark MD ?(Electronically Signed) ?Final Date:? ? ? 20 October 2022 ? 18:07 Laboratory Results WBC 7.9 10^3/uL (4.0-10.0) 10/22/22 05:09 RBC 3.95 10^6/uL (4.1-5.3) L 10/22/22 05:09 Hgb 11.6 g/dL (11.5-15.3) 10/22/22 05:09 Hct 38.2 % (37.0-47.0) 10/22/22 05:09 MCV 96.7 fl (81-99) 10/22/22 05:09 MCH 29.4 pg (28.0-34.0) 10/22/22 05:09 MCHC 30.4 g/dL (30.0-36.0) 10/22/22 05:09 RDW 13.9 % (12.1-15.1) 10/22/22 05:09 Plt Count 206 10^3/cmm (130-400) 10/22/22 05:09 MPV 9.9 fL (7.4-10.4) 10/22/22 05:09 Neut % (Auto) 83.0 % 10/22/22 05:09 Lymph % (Auto) 6.8 % 10/22/22 05:09 Bertie % (Auto) 9.6 % 10/22/22 05:09 Eos % (Auto) 0.1 % 10/22/22 05:09 Baso % (Auto) 0.0 % 10/22/22 05:09 Neut # (Auto) 6.59 10^3/uL (1.8-7.7) 10/22/22 05:09 Lymph # (Auto) 0.5 10^3/uL (0.8-4.8) L 10/22/22 05:09 Bertie # (Auto) 0.8 10^3/uL (0.2-0.9) 10/22/22 05:09 Eos # (Auto) 0.0 10^3/uL (0.0-0.8) 10/22/22 05:09 Baso # (Auto) 0.0 10^3/uL (0.0-0.1) 10/22/22 05:09 Nucleated RBC % (auto) 0 % 10/22/22 05:09 Nucleated RBCs # 0.0 /100WBC 10/22/22 05:09 D-Dimer 0.74 ug/mIFEU (0-0.59) H 10/20/22 13:20 Specimen Type Arterial 10/20/22 04:49 Sample Site Radial, left 10/20/22 04:49 ABG pH 7.35 (7.35-7.45) 10/20/22 04:49 ABG pCO2 76.7 mmHg (35-45) H* 10/20/22 04:49 ABG pO2 104.0 mmHg (80.0-100.0) H 10/20/22 04:49 ABG HCO3 42.1 mmol/L (22-26) H 10/20/22 04:49 ABG O2 Saturation 96.1 10/19/22 15:25 ABG Base Excess 13.4 mmol/L (-2.0-2.0) H 10/20/22 04:49 Nikolas Test Pos 10/20/22 04:49 A-a O2 Gradient 9.7 mmHg (5-10) 10/19/22 15:25 Hematocrit 36.0 % (37-47) L 10/20/22 04:49 Hgb O2 Saturation 92.2 % (95-100) L 10/19/22 15:25 Carboxyhemoglobin 3.2 %THgb (0.4-20.1) 10/19/22 15:25 Methemoglobin 0.8 % (0.4-1.5) 10/19/22 15:25 Total Hemoglobin 12.6 g/dL (12-16) 10/19/22 15:25 Sodium 139.0 mmol/L (131-143) 10/19/22 15:25 Potassium 4.9 mmol/L (3.5-5.0) 10/19/22 15:25 Glucose 99.0 mg/dL (70-115) 10/19/22 15:25 Ionized Calcium 1.3 mmol/L (1.1-1.4) 10/19/22 15:25 O2 Delivery Device Bipap 10/20/22 04:49 O2 Liters/Min 2.5 % 10/19/22 13:13 FiO2 35.0 % 10/20/22 04:49 PEEP 6.0 cmH20 10/20/22 04:49 Small Boat Engineer ID [email or web address] 10/20/22 04:49 Sodium 138 mmol/L (136-145) 10/22/22 05:09 Potassium 4.5 mmol/L (3.5-5.1) 10/22/22 05:09 Chloride 94 mmol/L (98-107) L 10/22/22 05:09 Carbon Dioxide 39 mmol/L (22-29) H 10/22/22 05:09 Anion Gap 9.5 (5-19) 10/22/22 05:09 BUN 21 mg/dL (8-23) 10/22/22 05:09 Creatinine 0.4 mg/dL (0.5-0.9) L 10/22/22 05:09 GFR Calculation Not Reportable 10/22/22 05:09 Glucose 111 mg/dL (65-115) 10/22/22 05:09 Estimat Average Glucose 91 10/20/22 04:38 Hemoglobin A1c 4.8 % (4.0-6.0) 10/20/22 04:38 Calculated Osmolality 290 mOsm/kg (285-295) 10/22/22 05:09 Calcium 9.9 mg/dL (8.5-10.5) 10/22/22 05:09 Iron 50 ug/dL (37-145) 10/20/22 04:38 TIBC 255 mcg/dl 10/20/22 04:38 % Saturation 19.6 % (20-50) L 10/20/22 04:38 Unsat Iron Binding 205 ug/dL (112-347) 10/20/22 04:38 Total Bilirubin 0.2 mg/dL (0.15-1.2) 10/22/22 05:09 AST 12 U/L (0-32) 10/22/22 05:09 ALT 8 U/L (0-33) 10/22/22 05:09 Alkaline Phosphatase 35 U/L (35-105) 10/22/22 05:09 NT-Pro-B Natriuret Pep 472 pg/mL (0-125) H 10/20/22 04:38 Total Protein 6.2 g/dL (6.6-8.7) L 10/22/22 05:09 Albumin 3.4 g/dL (3.5-5.2) L 10/22/22 05:09 Globulin 2.8 g/dL (1.3-4.6) 10/22/22 05:09 Triglycerides 67 mg/dL (0-150) 10/21/22 05:10 Cholesterol 176 mg/dL (0-200) 10/21/22 05:10 LDL Cholesterol, Calc 106 mg/dL (50-129) 10/21/22 05:10 Total VLDL Cholesterol 13 mg/dL (0-30) 10/21/22 05:10 HDL Cholesterol 57 mg/dL (60-100) L 10/21/22 05:10 Cholesterol/HDL Ratio 3.09 mg/dL (0.0-4.40) 10/21/22 05:10 Vitamin B12 188 pg/mL (232-1245) L 10/20/22 04:38 Folate 13.2 ng/mL (4.8-37.3) 10/20/22 13:20 Procalcitonin 0.04 ng/mL (0-0.5) 10/20/22 04:38 TSH 0.38 uIU/mL (0.27-4.20) 10/20/22 04:38 Urine Color Yellow (Yellow) 10/20/22 15:50 Urine Appearance Clear (CLEAR) 10/20/22 15:50 Urine pH 7 (5-7) 10/20/22 15:50 Ur Specific Castile 1.010 (1.005-1.030) 10/20/22 15:50 Urine Protein Neg (Negative) 10/20/22 15:50 Urine Glucose (UA) Norm (Normal) 10/20/22 15:50 Urine Ketones Negative (Negative) 10/20/22 15:50 Urine Blood Neg (Negative) 10/20/22 15:50 Urine Nitrate Negative (Negative) 10/20/22 15:50 Urine Bilirubin Neg (Negative) 10/20/22 15:50 Urine Urobilinogen Norm mg/dL (Negative) 10/20/22 15:50 Ur Leukocyte Esterase Negative (Negative) 10/20/22 15:50 Nasal Influ A H1 2009 PCR Not detected (NOT DETECT) 10/20/22 13:17 Adenovirus (PCR) Not detected (NOT DETECT) 10/20/22 13:17 C. pneumoniae DNA (PCR) Not detected (NOT DETECT) 10/20/22 13:17 Coronavirus 229E (PCR) Not detected (NOT DETECT) 10/20/22 13:17 Human Metapneumovir PCR Not detected (NOT DETECT) 10/20/22 13:17 Influenza A (H1) PCR Not detected (NOT DETECT) 10/20/22 13:17 Influenza A (H3) PCR Not detected (NOT DETECT) 10/20/22 13:17 Influenza Type A (PCR) Not detected (NOT DETECT) 10/20/22 13:17 Influenza Type B (PCR) Not detected (NOT DETECT) 10/20/22 13:17 M. pneumoniae (PCR) Not detected (NOT DETECT) 10/20/22 13:17 Parainfluenza 1 (PCR) Not detected (NOT DETECT) 10/20/22 13:17 Parainfluenza 2 (PCR) Not detected (NOT DETECT) 10/20/22 13:17 Parainfluenza 3 (PCR) Not detected (NOT DETECT) 10/20/22 13:17 Parainfluenza 4 (PCR) Not detected (NOT DETECT) 10/20/22 13:17 RSV Type A (PCR) Not detected (NOT DETECT) 10/20/22 13:17 RSV Type B (PCR) Not detected (NOT DETECT) 10/20/22 13:17 Entero/Rhino (PCR) Not detected (NOT DETECT) 10/20/22 13:17 SARS-CoV-2 (PCR) Not detected (NOT DETECT) 10/20/22 13:17 Vitals Last Vital Signs Temp 97.4 F L 10/22/22 08:00 Pulse 68 10/22/22 08:00 Resp 16 10/22/22 08:00 BP 167/73 10/22/22 08:00 Pulse Ox 95 10/22/22 08:00 O2 Del Method 10/22/22 07:36 O2 Flow Rate 2 10/22/22 07:36 FiO2 35 10/22/22 04:24 Discharge Plan Discharge Patient Disposition: Home Condition: Stable Prescriptions: New celecoxib 200 mg Capsule 200 mg PO BID@ 14 Days Qty: 28 0RF diltiazem HCl 30 mg Tablet 30 mg PO TID Qty: 90 0RF Cardizem 30 mg tablet 30 mg PO TID Qty: 90 0RF levofloxacin 500 mg tablet 500 mg PO Q24H 7 Days Qty: 7 0RF ipratropium-albuterol 0.5 mg-3 mg(2.5 mg base)/3 mL solution for nebulization 3 ml inhalation Q8H Qty: 180 0RF Pulmicort 0.5 mg/2 mL suspension for nebulization 0.25 mg inhalation BID Qty: 60 0RF prednisone 10 mg tablets,dose pack See Rx Instructions .ROUTE .COMPLEX Qty: 21 0RF Rx Instructions: orally per package directions Continued ipratropium-albuterol 0.5 mg-3 mg(2.5 mg base)/3 mL solution for nebulization 3 ml INHALATION QID PRN (Reason: wheezing) 30 Days Qty: 360 3RF (DME) oxygen small bottle See Rx Instructions .Route .MEDSUPPLY Qty: 1 0RF Rx Instructions: switch condensor to small tank celecoxib 200 mg capsule 200 mg PO BID Qty: 180 1RF levocetirizine 5 mg tablet 5 mg PO DAILY Qty: 30 5RF metoprolol tartrate 25 mg tablet 25 mg PO BID Qty: 60 3RF albuterol sulfate [Ventolin HFA] 90 mcg/actuation HFA aerosol inhaler 1 puff INHALATION TID PRN (Reason: Shortness Of Breath) Qty: 18 3RF fluticasone propion-salmeterol [Advair Diskus] 100-50 mcg/dose blister with device 1 inh inhalation BID Qty: 60 3RF Spiriva with HandiHaler 18 mcg capsule, w/inhalation device 1 cap inhalation DAILY Qty: 1 3RF Rx Instructions: Inhale 1 puff by mouth once daily aspirin 81 mg Tablet,Chewable 81 mg PO DAILY Lumigan 0.01 % drops 1 drp ophthalmic (eye) QPM Discharge Orders: Discharge Order (Routine); Ordered 10/22/22 Ordered By: Rishabh Christian Referrals: Kahlil Joseph MD [Primary Care Provider] - 10/29/22 10:40 am Discharge Diet: Regular Discharge Activity: Resume usual activity and Increase activity as tolerated Patient Instructions: Diltiazem (By mouth), Prednisone (By mouth), Levofloxacin (By mouth), Budesonide (By breathing), Celecoxib (By mouth), A-fib (Atrial Fibrillation) (GEN), COPD (Chronic Obstructive Pulmonary Disease) (GEN), Opioid Safety Activity Restrictions/Additional Instructions: Steroid taper as directed. Take Cardizem 30 mg 3 times a day as discussed. Try Levaquin 5 mg daily for next 7 days. Allergic reaction discussed in detail with the patient. Please follow-up with a primary care provider within next 2 weeks. Discharge Attestations Time Spent in Discharge Care*: greater than 30 min Status at Discharge: Cognitive status at discharge: cognitively intact , Behavioral status at discharge: cooperative , Functional status at discharge: other assisted ambulation , Overall status at discharge: patient is back to baseline Quality Metrics Clinical Quality Measures [ No reported AMI, CVA or VTE this stay] Coding Level of Care Code 94903 Total time (in minutes) for Discharge: 50 Diagnoses Acute on chronic respiratory failure with hypoxia and hypercapnia J96.21; J96.22 COPD (chronic obstructive pulmonary disease) J44.9 Chronic obstructive pulmonary emphysema J43.9 Pulmonary fibrosis J84.10 Pseudomonas aeruginosa colonization Z22.39 Paroxysmal A-fib I48.0 Body mass index less than 16.5 Z68.1 Back pain M54.9
== END 2022-10-22 12:05 | disposition home or self-care (01) | DRG 189 ==
LOC: ER 13:35 → MEDSURG 16:44
PROVIDERS: Admitting Provider Hospitalist; Emergency Provider Family Medicine; PCP Internal Medicine; Visit Provider Student in an Organized Health Care Education/Training Program
DX: J96.22 Acute and chronic respiratory failure with hypercapnia (principal); R64 Cachexia; Z68.1 Body mass index [BMI] 19.9 or less, adult; J96.21 Acute and chronic respiratory failure with hypoxia; J43.9 Emphysema, unspecified; Z99.81 Dependence on supplemental oxygen; Z91.199 Patient's noncompliance with other medical treatment and regimen due to unspecified reason; Z79.51 Long term (current) use of inhaled steroids; Z79.82 Long term (current) use of aspirin; I48.0 Paroxysmal atrial fibrillation; R91.8 Other nonspecific abnormal finding of lung field; M81.0 Age-related osteoporosis without current pathological fracture; Z87.891 Personal history of nicotine dependence; Z98.1 Arthrodesis status; Z77.22 Contact with and (suspected) exposure to environmental tobacco smoke (acute) (chronic); M54.50 Low back pain, unspecified; E53.8 Deficiency of other specified B group vitamins; J84.10 Pulmonary fibrosis, unspecified; I27.20 Pulmonary hypertension, unspecified; E87.5 Hyperkalemia; M19.90 Unspecified osteoarthritis, unspecified site
CPT/HCPCS: 36415; 36600; 71045; 71275; 80048; 80051; 80053; 80061; 81003; 82330; 82607; 82746; 82803; 82805; 83036; 83540; 83550; 83880; 84145; 84443; 85025; 85378; 86403; 87486; 87581; 87633; 87641; 93005; 93306; 94640; 94660; 94762; 96372; G0378; J1650; J2920; J2930; J3420; J7030; J7512; J7626; Q9967

== ENCOUNTER 2022-11-22 11:51 | Observation (INO) | payer MEDICARE, MEDICAID, SELFPAY ==
[2022-11-22] VITALS (13 sets, daily range): BP systolic 100–130; BP diastolic 52–75; PULSE 71–112; RESP 14–19; TEMP 36.3–36.6; O2SAT 90–98; BMI 14.6
--- NOTE | 2022-11-22 11:53 | ED_ITS ---
HPI - SOB/Dyspnea General: Chief Complaint: Shortness of Breath/Dyspnea Stated Complaint: SOB Time Seen by Provider: 11/22/22 11:53 History of Present Illness: HPI Narrative: Ms. Hull is a 72-year-old lady with significant past medical history of paroxysmal A-fib, pulmonary fibrosis, COPD with chronic hypoxic respiratory failure, Pseudomonas colonization listed on problem list presenting to the emergency department for shortness of breath. She reports over the past few days having intermittent perhaps worsening breathing however woke up this morning quite short of breath. She noted home oxygen level in the 70s. She tried her typical treatments however has not improved. Symptoms are worse with exertion however do not go away with rest. EMS administered albuterol and steroids with improvement in symptoms. Patient uses Trelegy at night. Current symptom intensity is mild to moderate, at worst it was severe. No other specific changes in health, exacerbating, or alleviating factors identified. Onset (ago): hour(s) Timing: constant Severity: mild Exacerbating factors: exertion Relieving factors: bronchodilators Known history of: COPD and other Review of Systems General: Reports: 10 or more systems reviewed and unremarkable except in HPI and below PFSH ED PFSH: Medical History Atrial fibrillation transient, during acute COPD exacerbation in 2019 Back pain Chronic obstructive pulmonary emphysema Chronic respiratory failure with hypoxia and hypercapnia COPD (chronic obstructive pulmonary disease) History of echocardiogram 08/2019 EF 65%, grade I/IV diastolic dysfunction, PAP within normal limits History of PFTs 10/2019 severe airflow obstruction, FEV1/FVC of 33%, FEV1 0.57 L 29% predicted, FVC 1.76 L 71% predicted, TLC 107%, RV 163%, reduced DLCO at 25% Mass of upper lobe of left lung cavitary appearance, never biopsied due to risk of complication and non- surgical candidate, has been stable on imaging Osteoarthritis Osteoporosis Paroxysmal A-fib Personal history of nicotine dependence quit in 2019, but still with 2nd hand exposure Pseudomonas aeruginosa colonization Pulmonary fibrosis Pulmonary nodule left lower lobe Seasonal allergies Surgical History History of kyphoplasty (2014) L1, L2, L3, L5 performed by Dr. Roman Marquez Family History Mother CAD (coronary artery disease) Social History Smoking and tobacco status: former smoker Quit status (tobacco): has quit using tobacco Year quit tobacco: 2019 - 1PPD x 50 Years Second hand smoke exposure: Yes Alcohol intake: never Lives independently: Yes Household members: none Marital status: Current occupational status: retired Current gender identity: Female Physical Exam Const: COMMON NORMALS: alert GENERAL APPEARANCE: cooperative and ill appearing (Mild, chronically) NUTRITIONAL APPEARANCE: underweight HENMT: COMMON NORMALS: normocephalic and atraumatic HEAD & SCALP: normocephalic and atraumatic Eye: COMMON NORMALS: conjunctivae normal CONJUNCTIVA: Yes conjunctivae normal SCLERA: sclerae normal Neck/C-Spine: COMMON NORMALS: supple GENERAL: Yes trachea midline Resp: EFFORT & INSPECTION: Yes able to speak in complete sentences AUSCULTATION: diminished lung sounds Cardio: COMMON NORMALS: regular rate and regular rhythm RATE: regular rate RHYTHM: regular rhythm GI: COMMON NORMALS: Soft to palpation PALPATION: Yes Soft to palpation and No Tenderness to palpation present (GI) Extremity: GENERAL: Yes normal exam except as noted and No edema Neuro: COMMON NORMALS: moves all extremities SENSORIUM/ORIENTATION: Yes alert and No Orientation impaired Psych: COMMON NORMALS: mental status grossly normal and Normal thought process present THOUGHT PROCESS: Normal thought process present Course Vital Signs: Vital signs: Vital Signs Temperature 98.1 F 11/24/22 11:25 Pulse Rate 75 11/24/22 11:25 Respiratory Rate 18 11/24/22 11:25 Blood Pressure 124/65 11/24/22 11:25 Pulse Oximetry 98 11/24/22 11:25 Oxygen Delivery Me thod Nasal Cannula 11/24/22 11:18 Oxygen Flow Rate 2 11/24/22 08:02 Fraction of Inspir ed Oxygen 40 11/24/22 04:55 MDM - SOB/Dyspnea Medical Decision Making 72-year-old lady with complex respiratory history presenting due to respiratory symptoms. Exam as above. EKG demonstrates sinus rhythm with normal axis and intervals, no STEMI. Labs with no significant hematologic abnormalities. Acute on chronic hypercapnic respiratory failure with hypoxia noted on ABG. Metabolic end with some evidence of dehydration. Negative range 2-hour delta troponin. Viral panel pending. Chest x-ray with abnormalities requiring further CT imaging. CTA demonstrates no pulm embolism, there are chronic cavitary changes and pulmonary nodules as well as compression fractures. During ED course patient treated with antibiotics, RT treatment, BiPAP. Most likely etiology of patient symptoms is COPD exacerbation with acute on chronic hypercapnic and hypoxic respiratory failure. The results of ED evaluation were discussed with the patient including plan for admission due to requirement for level of care not available if discharged to prevent significant worsening/deterioration. Patient agreeable with plan. Discussed with hospitalist service who was agreeable to admit patient. Medical Records I reviewed the patient's medical records. Lab Data I reviewed the patient's lab results. 11/23/22 04:10 11/23/22 04:10 Labs/Radiology: Radiology Impressions Chest X-Ray 11/22/22 12:08 IMPRESSION: 1. Possible nodule at the left base measuring 1.4 cm. Possible small cavitary lesion at the right base measuring 0.[address] chest to further assess. 2. The lungs are hyperinflated; query COPD, asthma or other obstructive lung disease. 3. Extensive scarring in the lung apices. Chest CTA 11/22/22 13:25 IMPRESSION: 1. Negative CT angiogram of the chest. No evidence of acute pulmonary embolism. 2. Chronic biapical fibro cavitary changes superimposed on diffuse emphysematous changes, stable. 3. 6 mm pulmonary nodule left lower lobe unchanged from December 2019, likely benign. 4. Multiple chronic compression fractures of the thoracolumbar spine, stable. COMMENTS: In the absence of a history or active diagnosis of lung cancer, it is recommended that this patient with emphysema be evaluated for enrollment in a low dose CT lung cancer screening program. Laboratory Results WBC 7.1 10^3/uL (4.0-10.0) 11/22/22 11:30 RBC 4.11 10^6/uL (4.1-5.3) 11/22/22 11:30 Hgb 12.1 g/dL (11.5-15.3) 11/22/22 11:30 Hct 40.3 % (37.0-47.0) 11/22/22 11:30 MCV 98.1 fl (81-99) 11/22/22 11:30 MCH 29.4 pg (28.0-34.0) 11/22/22 11:30 MCHC 30.0 g/dL (30.0-36.0) 11/22/22 11:30 RDW 13.8 % (12.1-15.1) 11/22/22 11:30 Plt Count 380 10^3/cmm (130-400) 11/22/22 11:30 MPV 9.6 fL (7.4-10.4) 11/22/22 11:30 Neut % (Auto) 72.4 % 11/22/22 11:30 Lymph % (Auto) 15.0 % 11/22/22 11:30 Mcduffie % (Auto) 11.5 % 11/22/22 11:30 Eos % (Auto) 0.3 % 11/22/22 11:30 Baso % (Auto) 0.4 % 11/22/22 11:30 Neut # (Auto) 5.17 10^3/uL (1.8-7.7) 11/22/22 11:30 Lymph # (Auto) 1.1 10^3/uL (0.8-4.8) 11/22/22 11:30 Mcduffie # (Auto) 0.8 10^3/uL (0.2-0.9) 11/22/22 11:30 Eos # (Auto) 0.0 10^3/uL (0.0-0.8) 11/22/22 11:30 Baso # (Auto) 0.0 10^3/uL (0.0-0.1) 11/22/22 11:30 Nucleated RBC % (auto) 0 % 11/22/22 11:30 Nucleated RBCs # 0.0 /100WBC 11/22/22 11:30 D-Dimer 1.32 ug/mIFEU (0-0.59) H 11/22/22 11:30 Specimen Type Arterial 11/22/22 14:43 Sample Site Brachial, left 11/22/22 14:43 ABG pH 7.30 (7.35-7.45) L 11/22/22 14:43 ABG pCO2 81.1 mmHg (35-45) H* 11/22/22 14:43 ABG pO2 54.1 mmHg (80.0-100.0) L 11/22/22 14:43 ABG HCO3 40.0 mmol/L (22-26) H 11/22/22 14:43 ABG Base Excess 10.6 mmol/L (-2.0-2.0) H 11/22/22 14:43 Nikolas Test Pos 11/22/22 14:43 Hematocrit 36.8 % (37-47) L 11/22/22 14:43 O2 Delivery Device Nc 11/22/22 14:43 O2 Liters/Min 3.0 % 11/22/22 14:43 FiO2 32.0 % 11/22/22 14:43 Sheetmetal Trades Worker ID Cak 11/22/22 14:43 Sodium 133 mmol/L (136-145) L 11/22/22 11:30 Potassium 4.8 mmol/L (3.5-5.1) 11/22/22 11:30 Chloride 90 mmol/L (98-107) L 11/22/22 11:30 Carbon Dioxide 38 mmol/L (22-29) H 11/22/22 11:30 Anion Gap 9.8 (5-19) 11/22/22 11:30 BUN 14 mg/dL (8-23) 11/22/22 11:30 Creatinine 0.3 mg/dL (0.5-0.9) L 11/22/22 11:30 GFR Calculation Not Reportable 11/22/22 11:30 Glucose 147 mg/dL (65-115) H 11/22/22 11:30 Calculated Osmolality 279 mOsm/kg (285-295) L 11/22/22 11:30 Lactic Acid 2.1 mmol/L (0.5-2.2) 11/22/22 12:25 Calcium 9.4 mg/dL (8.5-10.5) 11/22/22 11:30 Total Bilirubin 0.3 mg/dL (0.15-1.2) 11/22/22 11:30 AST 13 U/L (0-32) 11/22/22 11:30 ALT 7 U/L (0-33) 11/22/22 11:30 Alkaline Phosphatase 54 U/L (35-105) 11/22/22 11:30 Troponin T Baseline 31 ng/L (0-10) H 11/22/22 11:30 Troponin T 120 Minute 26.32 ng/L (0-10) H 11/22/22 13:33 Delta Troponin T -4.68 ABS# (0-10) L 11/22/22 13:33 NT-Pro-B Natriuret Pep 747 pg/mL (0-125) H 11/22/22 11:30 Total Protein 6.7 g/dL (6.6-8.7) 11/22/22 11:30 Albumin 3.7 g/dL (3.5-5.2) 11/22/22 11:30 Globulin 3.0 g/dL (1.3-4.6) 11/22/22 11:30 SARS-CoV-2 Ag (Rapid) negative (Negative) 11/22/22 12:35 Discharge Plan Discharge Patient Disposition: Placed in Observation Admit Provider: Roberto Quintana Clinical Impression: Acute on chronic respiratory failure with hypoxia and hypercapnia, Acute exacerbation of chronic obstructive airways disease Coding Level of Care Code ED Smelter Liner for Jihan Jimenes
--- NOTE | 2022-11-22 12:08 | ECG_ITS ---
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 Measurements Intervals [place] Rate: 93 P: 75 WV: 120 QRS: 89 QRSD: 92 T: 79 QT: 346 QTc: 431 Interpretive Statements SINUS RHYTHM WITH FREQUENT SUPRAVENTRICULAR PREMATURE COMPLEXES ABNORMAL RHYTHM ECG Compared to ECG 10/19/2022 12:52:08 Early repolarization no longer present ST (T wave) deviation no longer present Electronically Signed On 11-22-2022 22:09:20 CDT by Rosamaria Blum M.D. [email or web address] [email or web address] [email or web address]/[id number]
--- NOTE | 2022-11-22 12:08 | XRR_ITS ---
PROCEDURE INFORMATION: Exam: XR Chest Exam date and time: 11/22/2022 12:13 PM Age: 72 years old Clinical indication: Shortness of breath; Prior surgery; Surgery type: Heart monitor; T-sp; Additional info: SOB TECHNIQUE: Imaging protocol: Radiologic exam of the chest. Views: 1 view. COMPARISON: CR XR chest 1V portable [id number] 10/19/2022 1:02 PM FINDINGS: Lungs: There is extensive scarring in the lung apices. The lungs are hyperinflated. Possible nodule at the left base measuring 1.4 cm. Possible small cavitary lesion at the right base measuring 0.8 cm. Pleural spaces: No pleural effusion. No pneumothorax. Heart/Mediastinum: Cardiac silhouette is approximately unchanged. No gross evidence of pneumomediastinum. Bones/joints: There has been kyphoplasty in the thoracolumbar spine. No gross fracture. XR/XR chest 1V portable [id number] IMPRESSION: 1. Possible nodule at the left base measuring 1.4 cm. Possible small cavitary lesion at the right base measuring 0.[address] chest to further assess. 2. The lungs are hyperinflated; query COPD, asthma or other obstructive lung disease. 3. Extensive scarring in the lung apices.
[2022-11-22 13:00] LABS: Basophils % 0.4 %; Eosinophils % 0.3 %; Hematocrit 40.3 % (37.0-47.0); Hemoglobin 12.1 g/dL (11.5-15.3); Lymphocytes # 1.1 10^3/uL (0.8-4.8); Mean Corpuscular Hemoglobin 29.4 pg (28.0-34.0); Mean Corpuscular Volume 98.1 fl (81-99); Mean Platelet Volume 9.6 fL (7.4-10.4); Monocytes # 0.8 10^3/uL (0.2-0.9); Monocytes % 11.5 %; Neutrophils # 5.17 10^3/uL (1.8-7.7); Neutrophils % 72.4 %; Nucleated Red Blood Cells % 0 %; Platelet Count 380 10^3/cmm (130-400); Red Blood Count 4.11 10^6/uL (4.1-5.3); Red Cell Distribution Width 13.8 % (12.1-15.1); White Blood Count 7.1 10^3/uL (4.0-10.0)
[2022-11-22] MEDS: albuterol 2.5 mg/3 mL Neb INHALATION (13:15)
[2022-11-22 13:18] LABS: SARS Covid-2 Antigen negative (Negative)
[2022-11-22 13:21] LABS: D Dimer 1.32 ug/mIFEU (0-0.59)
--- NOTE | 2022-11-22 13:25 | CTR_ITS ---
PROCEDURE INFORMATION: Exam: CTA Chest With Contrast Exam date and time: 11/22/2022 1:49 PM Age: 72 years old Clinical indication: Shortness of breath; Additional info: SOB, elevated ddimer, hypoxia TECHNIQUE: Imaging protocol: Computed tomographic angiography of the chest with contrast. 3D rendering (Not supervised by radiologist): MIP and/or 3D reconstructed images were created by the technologist. Radiation optimization: All CT scans at this facility use at least one of these dose optimization techniques: automated exposure control; mA and/or kV adjustment per patient size (includes targeted exams where dose is matched to clinical indication); or iterative reconstruction. Contrast material: OMNI 350; Contrast volume: 61 ml; Contrast route: INTRAVENOUS (IV); REPORTING DATA: Count of CT and Cardiac NM exams in prior 12 months: This patient has received 3 known CTs and 0 known cardiac nuclear medicine studies in the 12 months prior to the current study. COMPARISON: CT angio chest PE protcl [id number] 10/20/2022 3:32 PM RADIATION DOSE METRICS: Total DLP (mGy-cm): 150.53 FINDINGS: Pulmonary arteries: Pulmonary vasculature is adequately opacified without filling defects or other evidence of acute pulmonary embolism. Aorta: There are scattered atherosclerotic changes of the thoracic aorta. There is no aortic aneurysm. Lungs: Chronic fibrocavitary changes within the lung apices with scarring and chronic bronchiectasis, unchanged. Diffuse emphysematous changes within the remaining lung marquis, stable. Stable 6 mm subpleural pulmonary nodule left lower lobe unchanged from December 2019 likely benign. Pleural spaces: Unremarkable. No pneumothorax. No pleural effusion. Heart: Heart is not significantly enlarged. There are moderate calcifications of the coronary artery. No significant pericardial effusion. Lymph nodes: Unremarkable. No enlarged lymph nodes. Bones/joints: Stable chronic compression fracture midthoracic spine. Multiple chronic compression fractures at the thoracolumbar junction treated with previous vertebroplasty unchanged. Soft tissues: Unremarkable. CT/CT angio chest PE protcl [id number] IMPRESSION: 1. Negative CT angiogram of the chest. No evidence of acute pulmonary embolism. 2. Chronic biapical fibro cavitary changes superimposed on diffuse emphysematous changes, stable. 3. 6 mm pulmonary nodule left lower lobe unchanged from December 2019, likely benign. 4. Multiple chronic compression fractures of the thoracolumbar spine, stable. COMMENTS: In the absence of a history or active diagnosis of lung cancer, it is recommended that this patient with emphysema be evaluated for enrollment in a low dose CT lung cancer screening program.
[2022-11-22 13:29] LABS: Lactic Sepsis W/Reflex 2.1 mmol/L (0.5-2.2)
[2022-11-22 13:30] LABS: Troponin(5th) Baseline 31 ng/L (0-10)
[2022-11-22 13:36] LABS: Alanine Aminotransferase 7 U/L (0-33); Albumin Level 3.7 g/dL (3.5-5.2); Alkaline Phosphatase 54 U/L (35-105); Anion Gap 9.8 (5-19); Aspartate Amino Transferase 13 U/L (0-32); Blood Urea Nitrogen 14 mg/dL (8-23); Calcium 9.4 mg/dL (8.5-10.5); Carbon Dioxide 38 mmol/L (22-29); Chloride 90 mmol/L (98-107); Glucose 147 mg/dL (65-115); NT Pro B Type Natriuretic Pept 747 pg/mL (0-125); Osmolality Calculated 279 mOsm/kg (285-295); Potassium 4.8 mmol/L (3.5-5.1); Sodium 133 mmol/L (136-145); Total Bilirubin 0.3 mg/dL (0.15-1.2); Total Protein 6.7 g/dL (6.6-8.7)
[2022-11-22] MEDS: iohexol 350 mg/mL 500 mL Btl (per mL) IV (13:55)
[2022-11-22 13:57] LABS: Troponin 5 2HR 26.32 ng/L (0-10)
[2022-11-22 14:05] LABS: Troponin 5 2HR Delta -4.68 ABS# (0-10)
--- NOTE | 2022-11-22 14:08 | ECG_ITS ---
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 Measurements Intervals [place] Rate: 95 P: 0 NM: 0 QRS: 141 QRSD: 97 T: 126 QT: 342 QTc: 431 Interpretive Statements ATRIAL FIBRILLATION LEFT POSTERIOR FASCICULAR BLOCK [QRS AXIS > 109, INFERIOR Q] MODERATE ST DEPRESSION [0.05+ mV ST DEPRESSION] Compared to ECG 10/19/2022 12:52:08 Left posterior fascicular block now present Sinus rhythm no longer present Early repolarization no longer present ST (T wave) deviation still present Electronically Signed On 11-22-2022 22:20:43 CDT by Rosamaria Blum M.D. [email or web address] [id number]
[2022-11-22 14:15] LABS: Reflex Lactate Order REFLEX LACTIC ORDERD
[2022-11-22 14:54] LABS: Arterial Blood Gas Hematocrit 36.8 % (37-47); Base Excess ABG 10.6 mmol/L (-2.0-2.0); Blood Gas Allen Test Pos; Blood Gas Operator Identificat CAK; Blood Gas Sample Site Brachial, left; Blood Gas Sample Type Arterial; Oxygen Device NC; PO2 ABG 54.1 mmHg (80.0-100.0)
[2022-11-22 14:55] LABS: ABG PCO2 81.1 mmHg (35-45)
[2022-11-22] MEDS: doxycycline 100 MG in sodium chloride 0.9% (plus) 100 ML IV (15:12)
[2022-11-22 15:44] LABS: Lactic Acid level (Lactate) 2.5 mmol/L (0.5-2.2)
[2022-11-22] MEDS: enoxaparin 40 mg/0.4 mL Syringe SUBCUT (17:26)
[2022-11-22] MEDS: pantoprazole 40 mg SDV IVP (17:27)
[2022-11-22 18:06] LABS: Troponin 5 6HR 25.28 ng/L (0-10)
--- NOTE | 2022-11-22 19:12 | P.HP_ITS ---
Providers/Chief Complaint Admitting Physician: Roberto Quintana DO Primary Care Provider: Norman Lazo MD Chief Complaint: SOB History of Present Illness Marie Hull is a 72 year old female with past medical history of COPD with chronic hypoxic respiratory failure, paroxysmal atrial fibrillation, pulmonary fibrosis, and history of Pseudomonas colonization, presented to the emergency room with worsening shortness of breath for the last few days. Patient says that this morning she woke up and her symptoms were worse than they have been. Her home pulse ox was reading that she was into the 70s. She has some breathing treatments and inhalers available at home, and she did try these with no improvement in her symptoms. She did call EMS who administered albuterol and steroids, with some improvement in her symptoms. She reports that she has been admitted for this in the past. In the ER, her vitals were stable on presentation. ABG showed that she was hypercarbic and hypoxic. She was only mildly acidic. She was slightly hyponatremic with sodium at 133. Her lactate was 2.5. Chest x-ray was performed showing a possible nodule in the left base measuring 1.4 cm as well as a cavitary lesion at the right base measuring 0.8 cm. Her lungs were hyperinflated and there was extensive scarring noted in the lung apices. CTA was obtained showing chronic biapical cavitations as well as diffuse emphysema. CTA was negative for embolism. There was also mention of a 6 mm pulmonary nodule in the left lower lobe that was unchanged from December 2019. In addition she has multiple chronic compression fractures of the thoracolumbar spine. She was started on BiPAP, and doxycycline in the ER. EKG did show atrial fibrillation. She is not currently on anticoagulation. Review of Systems General: Reports: 10 or more systems reviewed and unremarkable except in HPI and below Const: Denies: fever(s) or chills Card: Reports: palpitations and irregular heart rhythm; Denies: chest pain Resp: Reports: dyspnea, non-productive cough and wheezing GI: Denies: abdominal pain, nausea or vomiting : Denies: flank pain or difficulty voiding Skin/Breast: Denies: rash or pruritus Neuro: Denies: headache(s) Medications/Allergies Home Medications Medication Instructions Recorded Confirmed Last Taken Type aspirin 81 mg chewable tablet 81 mg PO DAILY 08/20/19 11/22/22 07/24/22 History ipratropium 0.5 mg-albuterol 3 mg 3 ml inhalation QID PRN wheezing 02/26/21 11/22/22 07/24/22 Rx (2.5 mg base)/3 mL nebulization 30 days #360 mL soln celecoxib 200 mg capsule 200 mg PO BID #180 caps 03/03/22 11/22/22 11/22/22 Rx oxygen #1 ea 03/24/22 11/22/22 07/24/22 Rx levocetirizine 5 mg tablet 5 mg PO DAILY #30 tabs 06/15/22 11/22/22 11/22/22 Rx metoprolol tartrate 25 mg tablet 25 mg PO BID #60 tabs 06/18/22 11/22/22 11/22/22 Rx albuterol sulfate 90 mcg/actuation 1 puff inhalation TID PRN 09/14/22 11/22/22 Unknown Rx aerosol inhaler (Ventolin HFA) Shortness Of Breath #18 grams fluticasone 100 mcg-salmeterol 50 1 inh inhalation BID #60 ea 09/14/22 11/22/22 11/22/22 Rx mcg/dose blistr powdr for inhalation (Advair Diskus) tiotropium bromide 18 mcg capsule 1 cap inhalation DAILY #1 inh 10/16/22 11/22/22 11/22/22 Rx with inhalation device (Spiriva with HandiHaler) bimatoprost 0.01 % eye drops 1 drp ophthalmic (eye) QPM 10/20/22 11/22/22 11/21/22 History (Neisha) diltiazem HCl 30 mg tablet 30 mg PO TID #90 tabs 10/22/22 11/22/22 11/22/22 Rx Allergies Allergy/AdvReac Type Severity Reaction Status Date / Time levofloxacin [From Levaquin] AdvReac Intermediate ADR-Dizzine Verified 10/20/22 09:35 ss PFSH Acute PFSH: Medical History Atrial fibrillation transient, during acute COPD exacerbation in 2019 Back pain Chronic obstructive pulmonary emphysema Chronic respiratory failure with hypoxia and hypercapnia COPD (chronic obstructive pulmonary disease) History of echocardiogram 08/2019 EF 65%, grade I/IV diastolic dysfunction, PAP within normal limits History of PFTs 10/2019 severe airflow obstruction, FEV1/FVC of 33%, FEV1 0.57 L 29% predicted, FVC 1.76 L 71% predicted, TLC 107%, RV 163%, reduced DLCO at 25% Mass of upper lobe of left lung cavitary appearance, never biopsied due to risk of complication and non- surgical candidate, has been stable on imaging Osteoarthritis Osteoporosis Paroxysmal A-fib Personal history of nicotine dependence quit in 2019, but still with 2nd hand exposure Pseudomonas aeruginosa colonization Pulmonary fibrosis Pulmonary nodule left lower lobe Seasonal allergies Surgical History History of kyphoplasty (2014) L1, L2, L3, L5 performed by Dr. Roman Marquez Family History Mother CAD (coronary artery disease) Social History Smoking and tobacco status: former smoker Quit status (tobacco): has quit using tobacco Year quit tobacco: 2019 - 1PPD x 50 Years Second hand smoke exposure: Yes Alcohol intake: never Lives independently: Yes Household members: none Marital status: Current occupational status: retired Current gender identity: Female Vitals/I&O/Wt Last Vital Signs Temp 97.8 F 11/22/22 11:53 Pulse 93 11/22/22 18:52 Resp 19 H 11/22/22 18:52 BP 100/54 11/22/22 18:52 Pulse Ox 95 11/22/22 18:52 O2 Del Method 11/22/22 18:29 O2 Flow Rate 3 11/22/22 13:38 FiO2 40 11/22/22 15:54 Weight last 48 hrs Weight 80 lb Physical Exam Narrative: General: Cooperative patient in mild respiratory distress wearing BiPAP. She is very thin, frail-appearing. HEENT: Normocephalic, Atraumatic. External ears normal. Nasal passages patent without drainage. MMM. Heart: Irregular rhythm with regular rate Resp: LCTA. No respiratory distress, no use of accessory muscles. Abd: Soft, non-tender. Non-distended. Extremities: No edema. Skin: No rash or lesions on exposed areas. Data 11/22/22 11:30 11/22/22 11:30 Micro: Microbiology 11/22/22 13:09 Blood Culture - Preliminary Blood SPECIMEN COLLECTED 11/22/22 12:25 Blood Culture - Preliminary Blood SPECIMEN COLLECTED A&P Assessment and plan (1) Acute on chronic respiratory failure with hypoxia and hypercapnia: (2) Paroxysmal A-fib: (3) Pulmonary fibrosis: (4) Chronic obstructive pulmonary emphysema: (5) Pulmonary nodule: (6) Uses bilevel positive airway pressure (BPAP) ventilation at home: (7) On home oxygen therapy: Plan 72-year-old female admitted for acute on chronic, hypoxic, hypercapnic respiratory failure. Admit to [facility] for close inpatient monitoring. CTA was negative for PE. CT and chest x-ray did demonstrate emphysematous changes throughout the lungs, cavitary lesions, pulmonary fibrosis. She did receive a dose of doxycycline in the ER. We will continue this twice daily. Continue BiPAP. RAAT, Oxygen protocol. Will start on IV Methylpred 2 times a day. Anticoagulation with Lovenox treatment dose. Her EKG today did demonstrate atrial fibrillation. Her rate was currently controlled. Recheck a.m. labs. Blood cultures were obtained and are pending. COVID test was negative. Continue other home medications for chronic illnesses. Code Status: Full IVF: None DVT PPx: Lovenox GI PPx: Protonix ABx: Doxycycline Diet: Regular Discharge plan: Home when stable Attestations Medical Necessity Statement*: Will need hospitalization for IV antibiotics, BiPAP, breathing treatments. Coding Level of Care Code Acute Code for Chg Fwd Moderate MDM includes number and complexity of problems actively addressed during encounter, amount and/or complexity of data reviewed/ordered and described risk of complication, morbidity or mortality of management as documented Diagnoses Acute on chronic respiratory failure with hypoxia and hypercapnia J96.21; J96.22 Paroxysmal A-fib I48.0 Pulmonary fibrosis J84.10 Chronic obstructive pulmonary emphysema J43.9 Pulmonary nodule R91.1 Uses bilevel positive airway pressure (BPAP) ventilation at home Z99.89 On home oxygen therapy Z99.81
[2022-11-22] MEDS: ipratropium-albuterol 3 mL Neb INHALATION (19:43)
[2022-11-22] MEDS: budesonide 0.5 mg/2 mL Neb INHALATION (19:43)
[2022-11-22] MEDS: dilTIAZem 30 mg Tablet PO (20:09)
[2022-11-22] MEDS: metoprolol tartrate 25 mg Tablet PO (20:09)
[2022-11-23] VITALS (14 sets, daily range): BP systolic 96–135; BP diastolic 50–61; PULSE 70–95; RESP 12–19; TEMP 36.3–36.8; O2SAT 89–98
[2022-11-23] MEDS: doxycycline 100 MG in sodium chloride 0.9% (plus) 100 ML IV ×2 (02:40→15:16)
[2022-11-23] MEDS: ipratropium-albuterol 3 mL Neb INHALATION ×4 (03:02→20:43)
[2022-11-23] MEDS: enoxaparin 40 mg/0.4 mL Syringe SUBCUT ×2 (04:35→15:16)
[2022-11-23 04:58] LABS: Basophils % 0.2 %; Hematocrit 38.4 % (37.0-47.0); Hemoglobin 11.2 g/dL (11.5-15.3); Lymphocytes # 0.4 10^3/uL (0.8-4.8); Lymphocytes % 7.3 %; Mean Corpuscular HGB Conc 29.2 g/dL (30.0-36.0); Mean Corpuscular Hemoglobin 28.9 pg (28.0-34.0); Mean Corpuscular Volume 99.2 fl (81-99); Mean Platelet Volume 9.6 fL (7.4-10.4); Monocytes # 0.2 10^3/uL (0.2-0.9); Monocytes % 3.8 %; Neutrophils # 4.61 10^3/uL (1.8-7.7); Neutrophils % 88.1 %; Nucleated Red Blood Cells % 0 %; Platelet Count 342 10^3/cmm (130-400); Red Blood Count 3.87 10^6/uL (4.1-5.3); White Blood Count 5.2 10^3/uL (4.0-10.0)
[2022-11-23 05:19] LABS: Anion Gap 12.2 (5-19); Blood Urea Nitrogen 16 mg/dL (8-23); Calcium 9.5 mg/dL (8.5-10.5); Carbon Dioxide 36 mmol/L (22-29); Chloride 97 mmol/L (98-107); Glucose 181 mg/dL (65-115); Osmolality Calculated 296 mOsm/kg (285-295); Potassium 5.2 mmol/L (3.5-5.1); Sodium 140 mmol/L (136-145)
[2022-11-23] MEDS: budesonide 0.5 mg/2 mL Neb INHALATION ×2 (07:46→20:43)
[2022-11-23] MEDS: dilTIAZem 30 mg Tablet PO ×3 (09:35→20:57)
[2022-11-23] MEDS: aspirin 81 mg Chew Tablet PO (09:36)
--- NOTE | 2022-11-23 10:25 | PC.CHAP ---
Pastoral Care Encounter/Spiritual Assessment Type of Contact [] Declined asset availability leader visit [] Patient/Family/Request visit [] Outpatient visit [] Follow-up visit [] Physician referral [] Code/Alert [x] Routine visit [] Staff referral [] Actively dying [] Patient sleeping [x] Family support [] [] Out of room [] Palliative care [] [] Receiving care in room [] Pre-surgical visit [] Trauma [] Long length of stay [] ICU visit [] Other: Relational/Emotional Strength [x] Patient feels connected with others/family/visitors/staff [] Distress [] Loneliness/isolation [] Abandonment Spirituality of Patient [x] Person of Valerie [] Attends Mosque of their Valerie [] Believes in Prayer [] Reads Bible or Yazidi materials [] There are Spiritual issues to be addressed Ground Layer Interventions [x] Prayer [] Active listening [] Non-anxious presence [] Spiritual/emotional support [] Crisis/trauma care [] Spiritual counseling [] Bereavement support [] Provided bereavement packet [] Provided Bible/devotional materials [] Provided toy/stuffed animal, coloring book to patient or family member [] Provided Communion [] Anointing/[place] [] Salvation [x] Completed spiritual assessment [] Other: Impact on Illness or Injury [x] Angry [] Fearful [] Anxious [] Often cries [] Exhaustion [] Unable to work [] Unable to attend caodaism [] Unable to walk/stand [] Unable to read [] Unable to drive [] Unable to eat/drink [] Unable to sleep [] Unable to be with family [] Patient intubated [] Other: Summary Time spent with patient 10 min
[2022-11-23] MEDS: pantoprazole 40 mg SDV IVP (15:15)
[2022-11-23] MEDS: metoprolol tartrate 25 mg Tablet PO (17:17)
--- NOTE | 2022-11-23 19:01 | P.PN_ITS ---
Subjective Subjective: Patient was seen and examined this morning, shortness of breath has slightly improved, though she still is not at her baseline, functional status. No other acute events. Medications: Medication Review Details: Generic Name Dose Route Start Last Admin Trade Name Rowdy PRN Reason Stop Dose Admin Albuterol/Ipratrop ium 3 ml 11/22/22 20:00 11/23/22 15:32 Ipratropium-Albu terol 3 Ml Neb INHALATION 3 ml Q6H.RESP YOLA Administration Aspirin 81 mg 11/23/22 09:00 11/23/22 09:36 Aspirin 81 Mg Ch ew Tablet PO 81 mg DAILY YOLA Administration Budesonide 0.5 mg 11/22/22 20:00 11/23/22 07:46 Budesonide 0.5 M g/2 Ml Neb INHALATION 0.5 mg BID.RESPIRATORY S CH Administration Diltiazem HCl 30 mg 11/22/22 21:00 11/23/22 15:15 Diltiazem 30 Mg Tablet PO 30 mg TID YOLA Administration Enoxaparin Sodium 40 mg 11/22/22 16:00 11/23/22 15:16 Enoxaparin 40 Mg /0.4 Ml Syringe SUBCUT 40 mg Q12H YOLA Administration Doxycycline Hyclat e 100 mg/ 100 mls @ 100 mls /hr 11/23/22 03:00 11/23/22 16:16 Sodium Chloride IV Infused Q12H YOLA Infusion Protocol Metoprolol Tartrat e 25 mg 11/22/22 19:36 11/23/22 17:17 Metoprolol Tartr ate 25 Mg Tablet PO 25 mg BID YOLA Administration Non-Formulary Medi cation 5 mg 11/23/22 09:00 11/23/22 09:45 Levocetirizine PO Not Given DAILY YOLA Pantoprazole Sodiu m 40 mg 11/22/22 15:45 11/23/22 15:15 Pantoprazole 40 Mg Sdv IVP 40 mg Q24H YOLA Administration Vitals/I&O/Wt Last Vital Signs Temp 97.8 F 11/23/22 15:59 Pulse 95 11/23/22 15:59 Resp 15 11/23/22 15:59 BP 107/50 11/23/22 15:59 Pulse Ox 92 11/23/22 15:59 O2 Del Method 11/23/22 15:59 O2 Flow Rate 2 11/23/22 15:32 FiO2 40 11/23/22 03:02 11/23/22 11/23/22 11/23/22 06:59 14:59 22:59 Intake Total 340 / 340 600 / 600 100 / 700 Output Total 0 / 0 Balance 340 / 340 600 / 600 100 / 700 Weight last 48 hrs Weight 36.287 kg Weight 36.287 kg Physical Exam Const: COMMON NORMALS: patient oriented x3 HENMT: COMMON NORMALS: normocephalic and atraumatic HEAD & SCALP: normoce phalic and atraumatic Resp: COMMON NORMALS: clear to auscultation bilaterally AUSCULTATION: clear to auscultation bilaterally OTHER: Diminished air entry bilaterally Cardio: COMMON NORMALS: regular rate, regular rhythm, S1 normal heart sound present, S2 normal heart sound present, No gallops present (Cardio), No murmurs present (Cardio), No rub (Cardio) and Peripheral pulses 2+ throughout RATE: regular rate RHYTHM: regular rhythm HEART SOUNDS: S1 normal heart sound present and S2 normal heart sound present PERIPHERAL PULSES: Peripheral pulses 2+ throughout GI: COMMON NORMALS: Normal to inspection, nondistended, normoactive bowel sounds present, Soft to palpation, non-tender, No hepatosplenomegaly present and no masses AUSCULTATION: Yes normoactive bowel sounds PALPATION: Yes Soft to palpation and Yes No hepatosplenomegaly present RECTAL EXAM: deferred Extremity: COMMON NORMALS: no clubbing, cyanosis or edema and no pedal edema Neuro: COMMON NORMALS: patient oriented x3 Data 11/23/22 04:10 11/23/22 04:10 Micro: Microbiology 11/22/22 13:09 Blood Culture - Preliminary Blood NEGATIVE TO DATE 11/22/22 12:25 Blood Culture - Preliminary Blood NEGATIVE TO DATE A&P Assessment and plan (1) Acute on chronic respiratory failure with hypoxia and hypercapnia: (2) Paroxysmal A-fib: (3) Pulmonary fibrosis: (4) Chronic obstructive pulmonary emphysema: (5) Pulmonary nodule: (6) Uses bilevel positive airway pressure (BPAP) ventilation at home: (7) On home oxygen therapy: Plan 72-year-old female admitted for acute on chronic, hypoxic, hypercapnic respiratory failure. Admit to [facility] for close inpatient monitoring. CTA was negative for PE. CT and chest x-ray did demonstrate emphysematous changes throughout the lungs, cavitary lesions, pulmonary fibrosis. She did receive a dose of doxycycline in the ER. We will continue this twice daily. Continue BiPAP. RAAT, Oxygen protocol. Will start on IV Methylpred 2 times a day. Anticoagulation with Lovenox treatment dose. Her EKG today did demonstrate atrial fibrillation. Her rate was currently controlled. Recheck a.m. labs. Blood cultures were obtained and are pending. COVID test was negative. Continue other home medications for chronic illnesses. Code Status: Full IVF: None DVT PPx: Lovenox GI PPx: Protonix ABx: Doxycycline Diet: Regular Discharge plan: Home when stable Attestations Medical Necessity Statement*: Needs to be in hospital for management of COPD exacerbation, need for IV steroids and antibiotics Coding Level of Care Code 20212 Diagnoses Acute on chronic respiratory failure with hypoxia and hypercapnia J96.21; J96.22 Paroxysmal A-fib I48.0 Pulmonary fibrosis J84.10 Chronic obstructive pulmonary emphysema J43.9 Pulmonary nodule R91.1 Uses bilevel positive airway pressure (BPAP) ventilation at home Z99.89 On home oxygen therapy Z99.81
[2022-11-24] VITALS (11 sets, daily range): BP systolic 100–124; BP diastolic 55–65; PULSE 72–89; RESP 14–20; TEMP 36.4–36.8; O2SAT 94–99
[2022-11-24] MEDS: doxycycline 100 MG in sodium chloride 0.9% (plus) 100 ML IV (02:00)
[2022-11-24] MEDS: ipratropium-albuterol 3 mL Neb INHALATION ×2 (02:31→08:00)
[2022-11-24] MEDS: enoxaparin 40 mg/0.4 mL Syringe SUBCUT (03:44)
[2022-11-24] MEDS: budesonide 0.5 mg/2 mL Neb INHALATION (08:00)
[2022-11-24] MEDS: dilTIAZem 30 mg Tablet PO (08:35)
[2022-11-24] MEDS: metoprolol tartrate 25 mg Tablet PO (08:35)
[2022-11-24] MEDS: aspirin 81 mg Chew Tablet PO (08:35)
--- NOTE | 2022-11-24 10:22 | PM.DCS ---
Discharge Providers Date of Admission: 11/22/22 14:44 Date of Discharge: November 24, 2022 Attending Provider at Admission: Roberto Quintana DO Attending Provider at Discharge: Hira Carrizales MD Primary Care Provider: Norman Lazo MD Diagnoses at Discharge Discharge Diagnosis (1) Acute on chronic respiratory failure with hypoxia and hypercapnia: Status: Acute (2) Paroxysmal A-fib: Status: Acute (3) Pulmonary fibrosis: Status: Acute (4) Chronic obstructive pulmonary emphysema: Status: Acute (5) Pulmonary nodule: Status: Chronic Permanent problem details: left lower lobe (6) Uses bilevel positive airway pressure (BPAP) ventilation at home: Status: Chronic Permanent problem details: trilogy, via [employer] (7) On home oxygen therapy: Status: Chronic Permanent problem details: 2-3 L BNC at baseline Reason for Visit Reason for Visit: SOB Hospital Course Hospital Course HPI: Roberto Quintana DO Marie Hull is a 72 year old female with past medical history of COPD with chronic hypoxic respiratory failure, paroxysmal atrial fibrillation, pulmonary fibrosis, and history of Pseudomonas colonization, presented to the emergency room with worsening shortness of breath for the last few days.? Patient says that this morning she woke up and her symptoms were worse than they have been.? Her home pulse ox was reading that she was into the 70s.? She has some breathing treatments and inhalers available at home, and she did try these with no improvement in her symptoms.? She did call EMS who administered albuterol and steroids, with some improvement in her symptoms.? She reports that she has been admitted for this in the past. In the ER, her vitals were stable on presentation.? ABG showed that she was hypercarbic and hypoxic.? She was only mildly acidic.? She was slightly hyponatremic with sodium at 133.? Her lactate was 2.5.? Chest x-ray was performed showing a possible nodule in the left base measuring 1.4 cm as well as a cavitary lesion at the right base measuring 0.8 cm.? Her lungs were hyperinflated and there was extensive scarring noted in the lung apices.? CTA was obtained showing chronic biapical cavitations as well as diffuse emphysema.? CTA was negative for embolism.? There was also mention of a 6 mm pulmonary nodule in the left lower lobe that was unchanged from December 2019.? In addition she has multiple chronic compression fractures of the thoracolumbar spine.? She was started on BiPAP, and doxycycline in the ER.? EKG did show atrial fibrillation.? She is not currently on anticoagulation. Hospital course: She was admitted for the management of acute on chronic hypoxic hypercapnic respiratory failure secondary COPD exacerbation: CTA chest was negative for any pulmonary embolism,Chronic biapical fibro cavitary changes superimposed on diffuse emphysematous changes, stable.6 mm pulmonary nodule left lower lobe unchanged from December 2019, likely benign. She was kept on IV steroids, DuoNebs, supplemental oxygen as needed, to which she responded pretty well, at the time of discharge she was requiring, 2 L supplemental oxygen through nasal cannula which is her baseline, shortness of breath is significantly improved, She was slowly progressing towards her baseline functional status. She was discharged on p.o. prednisone for 40 mg daily for 5 days, as well as azithromycin 250 mg p.o. daily for 5 days. Overall she responded well to above medical management, she was discharged in stable condition to home, she will follow pulmonary as outpatient. Physical Exam Const: COMMON NORMALS: patient oriented x3 HENMT: COMMON NORMALS: normocephalic and atraumatic HEAD & SCALP: normocephalic and atraumatic Resp: COMMON NORMALS: clear to auscultation bilaterally AUSCULTATION: clear to auscultation bilaterally OTHER: Diminished air entry bilaterally Cardio: COMMON NORMALS: regular rate, regular rhythm, S1 normal heart sound present, S2 normal heart sound present, No gallops present (Cardio), No murmurs present (Cardio), No rub (Cardio) and Peripheral pulses 2+ throughout RATE: regular rate RHYTHM: regular rhythm HEART SOUNDS: S1 normal heart sound present and S2 normal heart sound present PERIPHERAL PULSES: Peripheral pulses 2+ throughout GI: COMMON NORMALS: Normal to inspection, nondistended, normoactive bowel sounds present, Soft to palpation, non-tender, No hepatosplenomegaly present and no masses AUSCULTATION: Yes normoactive bowel sounds PALPATION: Yes Soft to palpation and Yes No hepatosplenomegaly present RECTAL EXAM: deferred Extremity: COMMON NORMALS: no clubbing, cyanosis or edema and no pedal edema Neuro: COMMON NORMALS: patient oriented x3 Discharge Data Studies Completed and Pending Completed Studies During Hospitalization Category Date Time Status CTA chest [CT angio chest PE protcl [id number]] Stat Cat Scan 11/22/22 13:25 Completed XR chest 1V portable [id number] Stat Exams 11/22/22 12:08 Completed Pending at discharge Category Date Time Status Blood Culture Stat Lab 11/22/22 13:09 Results Radiology Impressions Chest X-Ray 11/22/22 12:08 IMPRESSION: 1. Possible nodule at the left base measuring 1.4 cm. Possible small cavitary lesion at the right base measuring 0.[address] chest to further assess. 2. The lungs are hyperinflated; query COPD, asthma or other obstructive lung disease. 3. Extensive scarring in the lung apices. Chest CTA 11/22/22 13:25 IMPRESSION: 1. Negative CT angiogram of the chest. No evidence of acute pulmonary embolism. 2. Chronic biapical fibro cavitary changes superimposed on diffuse emphysematous changes, stable. 3. 6 mm pulmonary nodule left lower lobe unchanged from December 2019, likely benign. 4. Multiple chronic compression fractures of the thoracolumbar spine, stable. COMMENTS: In the absence of a history or active diagnosis of lung cancer, it is recommended that this patient with emphysema be evaluated for enrollment in a low dose CT lung cancer screening program. Laboratory Results WBC 5.2 10^3/uL (4.0-10.0) 11/23/22 04:10 RBC 3.87 10^6/uL (4.1-5.3) L 11/23/22 04:10 Hgb 11.2 g/dL (11.5-15.3) L 11/23/22 04:10 Hct 38.4 % (37.0-47.0) 11/23/22 04:10 MCV 99.2 fl (81-99) H 11/23/22 04:10 MCH 28.9 pg (28.0-34.0) 11/23/22 04:10 MCHC 29.2 g/dL (30.0-36.0) L 11/23/22 04:10 RDW 14.0 % (12.1-15.1) 11/23/22 04:10 Plt Count 342 10^3/cmm (130-400) 11/23/22 04:10 MPV 9.6 fL (7.4-10.4) 11/23/22 04:10 Neut % (Auto) 88.1 % 11/23/22 04:10 Lymph % (Auto) 7.3 % 11/23/22 04:10 Sargent % (Auto) 3.8 % 11/23/22 04:10 Eos % (Auto) 0.0 % 11/23/22 04:10 Baso % (Auto) 0.2 % 11/23/22 04:10 Neut # (Auto) 4.61 10^3/uL (1.8-7.7) 11/23/22 04:10 Lymph # (Auto) 0.4 10^3/uL (0.8-4.8) L 11/23/22 04:10 Sargent # (Auto) 0.2 10^3/uL (0.2-0.9) 11/23/22 04:10 Eos # (Auto) 0.0 10^3/uL (0.0-0.8) 11/23/22 04:10 Baso # (Auto) 0.0 10^3/uL (0.0-0.1) 11/23/22 04:10 Nucleated RBC % (auto) 0 % 11/23/22 04:10 Nucleated RBCs # 0.0 /100WBC 11/23/22 04:10 D-Dimer 1.32 ug/mIFEU (0-0.59) H 11/22/22 11:30 Specimen Type Arterial 11/22/22 14:43 Sample Site Brachial, left 11/22/22 14:43 ABG pH 7.30 (7.35-7.45) L 11/22/22 14:43 ABG pCO2 81.1 mmHg (35-45) H* 11/22/22 14:43 ABG pO2 54.1 mmHg (80.0-100.0) L 11/22/22 14:43 ABG HCO3 40.0 mmol/L (22-26) H 11/22/22 14:43 ABG Base Excess 10.6 mmol/L (-2.0-2.0) H 11/22/22 14:43 Nikolas Test Pos 11/22/22 14:43 Hematocrit 36.8 % (37-47) L 11/22/22 14:43 O2 Delivery Device Nc 11/22/22 14:43 O2 Liters/Min 3.0 % 11/22/22 14:43 FiO2 32.0 % 11/22/22 14:43 [employer] Application Developer ID Cak 11/22/22 14:43 Sodium 140 mmol/L (136-145) 11/23/22 04:10 Potassium 5.2 mmol/L (3.5-5.1) H 11/23/22 04:10 Chloride 97 mmol/L (98-107) L 11/23/22 04:10 Carbon Dioxide 36 mmol/L (22-29) H 11/23/22 04:10 Anion Gap 12.2 (5-19) 11/23/22 04:10 BUN 16 mg/dL (8-23) 11/23/22 04:10 Creatinine 0.4 mg/dL (0.5-0.9) L 11/23/22 04:10 GFR Calculation Not Reportable 11/23/22 04:10 Glucose 181 mg/dL (65-115) H 11/23/22 04:10 Calculated Osmolality 296 mOsm/kg (285-295) H 11/23/22 04:10 Lactic Acid 2.1 mmol/L (0.5-2.2) 11/22/22 12:25 Lactic Acid (Sepsis) 2.5 mmol/L (0.5-2.2) H 11/22/22 15:22 Calcium 9.5 mg/dL (8.5-10.5) 11/23/22 04:10 Total Bilirubin 0.3 mg/dL (0.15-1.2) 11/22/22 11:30 AST 13 U/L (0-32) 11/22/22 11:30 ALT 7 U/L (0-33) 11/22/22 11:30 Alkaline Phosphatase 54 U/L (35-105) 11/22/22 11:30 Troponin T Baseline 31 ng/L (0-10) H 11/22/22 11:30 Troponin T 120 Minute 26.32 ng/L (0-10) H 11/22/22 13:33 Delta Troponin T -4.68 ABS# (0-10) L 11/22/22 13:33 Troponin T Hi Sens 6Hr 25.28 ng/L (0-10) H 11/22/22 17:30 Troponin T Hi Sens 6Hr Delta -5.72 ng/L (0-12) L 11/22/22 17:30 NT-Pro-B Natriuret Pep 747 pg/mL (0-125) H 11/22/22 11:30 Total Protein 6.7 g/dL (6.6-8.7) 11/22/22 11:30 Albumin 3.7 g/dL (3.5-5.2) 11/22/22 11:30 Globulin 3.0 g/dL (1.3-4.6) 11/22/22 11:30 SARS-CoV-2 Ag (Rapid) negative (Negative) 11/22/22 12:35 Vitals Last Vital Signs Temp 97.5 F L 11/24/22 08:00 Pulse 80 11/24/22 08:00 Resp 16 11/24/22 08:00 BP 114/64 11/24/22 08:00 Pulse Ox 98 11/24/22 08:00 O2 Del Method 11/24/22 08:00 O2 Flow Rate 2 11/24/22 08:02 FiO2 40 11/24/22 04:55 Discharge Plan Discharge Patient Disposition: Home Condition: Stable Prescriptions: New azithromycin 250 mg tablet 250 mg PO DAILY 5 Days Qty: 5 0RF prednisone 20 mg tablet 40 mg PO DAILY 5 Days Qty: 5 0RF Continued ipratropium-albuterol 0.5 mg-3 mg(2.5 mg base)/3 mL solution for nebulization 3 ml INHALATION QID PRN (Reason: wheezing) 30 Days Qty: 360 3RF (DME) oxygen small bottle See Rx Instructions .Route .MEDSUPPLY Qty: 1 0RF Rx Instructions: switch condensor to small tank celecoxib 200 mg capsule 200 mg PO BID Qty: 180 1RF levocetirizine 5 mg tablet 5 mg PO DAILY Qty: 30 5RF metoprolol tartrate 25 mg tablet 25 mg PO BID Qty: 60 3RF albuterol sulfate [Ventolin HFA] 90 mcg/actuation HFA aerosol inhaler 1 puff INHALATION TID PRN (Reason: Shortness Of Breath) Qty: 18 3RF fluticasone propion-salmeterol [Advair Diskus] 100-50 mcg/dose blister with device 1 inh inhalation BID Qty: 60 3RF Spiriva with HandiHaler 18 mcg capsule, w/inhalation device 1 cap inhalation DAILY Qty: 1 3RF Rx Instructions: Inhale 1 puff by mouth once daily aspirin 81 mg Tablet,Chewable 81 mg PO DAILY [place] 0.01 % drops 1 drp ophthalmic (eye) QPM Rx Instructions: both eyes diltiazem HCl 30 mg Tablet 30 mg PO TID Qty: 90 0RF Discharge Orders: Discharge Order (Routine); Ordered 11/24/22 Ordered By: Hira Carrizales Referrals: Norman Lazo MD [Primary Care Provider] - 11/30/22 9:40 am Patient Instructions: Prednisone (By mouth), Azithromycin (By mouth), Pulmonary Fibrosis (GEN), COPD (Chronic Obstructive Pulmonary Disease) (GEN), Opioid Safety Discharge Attestations Time Spent in Discharge Care*: less than 30 min Status at Discharge: Cognitive status at discharge: cognitively intact, Behavioral status at discharge: cooperative, Quality Metrics Clinical Quality Measures [ No reported AMI, CVA or VTE this stay] Coding Level of Care Code Acute Code for Chg Fwd Diagnoses Acute on chronic respiratory failure with hypoxia and hypercapnia J96.21; J96.22 Paroxysmal A-fib I48.0 Pulmonary fibrosis J84.10 Chronic obstructive pulmonary emphysema J43.9 Pulmonary nodule R91.1 Uses bilevel positive airway pressure (BPAP) ventilation at home Z99.89 On home oxygen therapy Z99.81
--- NOTE | 2022-11-24 11:31 | PC.NURSE ---
Discussed new medications, continued medications and follow up appointments with patient and daughter. All questions answered and verbalized understanding.
== END 2022-11-24 11:25 | disposition home or self-care (01) ==
LOC: ER 14:44 → MEDSURG 15:50
PROVIDERS: Admitting Provider Family Medicine; Emergency Provider Emergency Medicine; PCP Family Medicine; Visit Provider Internal Medicine
DX: J96.21 Acute and chronic respiratory failure with hypoxia (principal); J96.22 Acute and chronic respiratory failure with hypercapnia; I48.0 Paroxysmal atrial fibrillation; J44.1 Chronic obstructive pulmonary disease with (acute) exacerbation; I47.1 Supraventricular tachycardia; R91.1 Solitary pulmonary nodule; I44.5 Left posterior fascicular block; J84.10 Pulmonary fibrosis, unspecified; Z87.891 Personal history of nicotine dependence; Z99.81 Dependence on supplemental oxygen
CPT/HCPCS: 36415; 36600; 71045; 71275; 80048; 80053; 82803; 83605; 83880; 84484; 85025; 85378; 87040; 87426; 93005; 94640; 94660; 94664; 96365; 96372; 96375; 99291; C9113; G0378; J1650; J2930; J3490; J7613; J7626; Q9967

== ENCOUNTER 2022-12-14 06:00 | Outpatient (RCR) | payer MEDICARE, MEDICAID, SELFPAY | END 2023-01-13 23:59 | disposition home or self-care (01) | LOC: PULRHB 06:00 | PROVIDERS: PCP Family Medicine; Visit Provider Internal Medicine Pulmonary Disease | DX: J96.92 Respiratory failure, unspecified with hypercapnia (principal); J96.91 Respiratory failure, unspecified with hypoxia | CPT/HCPCS: G0237; G0238 ==

== ENCOUNTER 2022-12-19 23:09 | Inpatient (IN) | payer MEDICARE, MEDICAID, SELFPAY ==
[2022-12-19 23:25] VITALS: BP 124/67; PULSE 78; RESP 26; O2SAT 86
--- NOTE | 2022-12-19 23:38 | XRR_ITS ---
PROCEDURE INFORMATION: Exam: XR Chest Exam date and time: 12/19/2022 11:52 PM Age: 72 years old Clinical indication: Shortness of breath; Additional info: SOB TECHNIQUE: Imaging protocol: Radiologic exam of the chest. Views: 1 view. COMPARISON: CR (CHEST, ) 11/22/2022 12:13 PM FINDINGS: Tubes, catheters and devices: Multilevel kyphoplasties of the thoracolumbar spine. Lungs: Severe emphysematous changes are again noted with flattening of the diaphragms in diffuse hyperinflation. Advanced biapical scarring/apical fibrosis in the upper lobes is again noted. Localized thickening in the left lung apex is unchanged from prior. Pleural spaces: The costophrenic angles are slightly obscured. Can not exclude trace pleural effusions or pleural thickening. Heart/Mediastinum: The cardiomediastinal silhouette is stable in appearance. Vasculature: The thoracic aorta is tortuous. Bones/joints: The bones are osteopenic. No new acute fractures. XR/XR chest 1V portable [id number] IMPRESSION: 1. Emphysema. 2. Biapical scarring. 3. No significant interval change.
--- NOTE | 2022-12-19 23:38 | ECG_ITS ---
[facility] Test Date: 2022-12-20 Pat Name: Marie Hull Department: Room: Gender: Female Medical Staff Director: : 1950 Requested By: Sharan Love Order Number: [id number] Bobby MD: Jay Stark M.D. Measurements Intervals [place] Rate: 74 P: 88 DE: 132 QRS: 96 QRSD: 90 T: 89 QT: 359 QTc: 398 Interpretive Statements SINUS RHYTHM BORDERLINE RIGHT AXIS DEVIATION [QRS AXIS > 90] EARLY REPOLARIZATION [ST ELEVATION WITH NORMALLY INFLECTED T-WAVE] MODERATE ST DEPRESSION [0.05+ mV ST DEPRESSION] TALL T-WAVES, SUGGESTS HYPERKALEMIA Compared to ECG 11/22/2022 14:18:34 Early repolarization now present Atrial fibrillation no longer present Left posterior fascicular block no longer present ST (T wave) deviation still present Electronically Signed On 12-20-2022 10:24:17 CDT by Jay Stark M.D. [email or web address]
[2022-12-19 23:40] LABS: ABG PH Result 7.32 (7.35-7.45); Arterial Blood Gas Hematocrit 34.7 % (37-47); Base Excess ABG 11.9 mmol/L (-2.0-2.0); Blood Gas Allen Test Pos; Blood Gas Sample Site Radial, left; Blood Gas Sample Type Arterial; Carboxyhemoglobin 4.8 %THgb (0.4-20.1); HGB O2 Sat 81.7 % (95-100); Methemoglobin 0.8 % (0.4-1.5); Oxygen Device NC; PO2 ABG 51.1 mmHg (80.0-100.0); Total Hemoglobin 11.3 g/dL (12-16)
[2022-12-19 23:52] VITALS: PULSE 76; RESP 26; O2SAT 94
[2022-12-19] MEDS: ipratropium 0.5 mg/2.5 mL Neb INHALATION (23:52)
[2022-12-19 23:53] LABS: Basophils % 0.5 %; Eosinophils # 0.3 10^3/uL (0.0-0.8); Eosinophils % 3.7 %; Hematocrit 37.7 % (37.0-47.0); Lymphocytes # 2.1 10^3/uL (0.8-4.8); Lymphocytes % 26.6 %; Mean Corpuscular HGB Conc 29.2 g/dL (30.0-36.0); Mean Corpuscular Hemoglobin 28.6 pg (28.0-34.0); Mean Corpuscular Volume 97.9 fl (81-99); Mean Platelet Volume 9.4 fL (7.4-10.4); Monocytes # 1.2 10^3/uL (0.2-0.9); Neutrophils # 4.23 10^3/uL (1.8-7.7); Neutrophils % 53.9 %; Nucleated Red Blood Cells % 0 %; Platelet Count 348 10^3/cmm (130-400); Red Blood Count 3.85 10^6/uL (4.1-5.3); Red Cell Distribution Width 14.6 % (12.1-15.1); White Blood Count 7.9 10^3/uL (4.0-10.0)
[2022-12-19] MEDS: dexamethasone 10 mg/mL INJ IVP (23:55)
[2022-12-20] VITALS (18 sets, daily range): BP systolic 94–128; BP diastolic 57–72; PULSE 72–104; RESP 14–22; TEMP 36.4–36.7; O2SAT 93–99
[2022-12-20 00:12] LABS: Lactic Sepsis W/Reflex 0.6 mmol/L (0.5-2.2)
[2022-12-20 00:13] LABS: Troponin(5th) Baseline 21 ng/L (0-10)
[2022-12-20 00:20] LABS: Alanine Aminotransferase 7 U/L (0-33); Albumin Level 3.5 g/dL (3.5-5.2); Alkaline Phosphatase 55 U/L (35-105); Anion Gap 9.5 (5-19); Aspartate Amino Transferase 14 U/L (0-32); Blood Urea Nitrogen 15 mg/dL (8-23); Calcium 9.5 mg/dL (8.5-10.5); Carbon Dioxide 37 mmol/L (22-29); Chloride 95 mmol/L (98-107); Globulin 3.1 g/dL (1.3-4.6); Glucose 110 mg/dL (65-115); NT Pro B Type Natriuretic Pept 554 pg/mL (0-125); Osmolality Calculated 283 mOsm/kg (285-295); Potassium 5.5 mmol/L (3.5-5.1); Sodium 136 mmol/L (136-145); Total Bilirubin 0.2 mg/dL (0.15-1.2); Total Protein 6.6 g/dL (6.6-8.7)
--- NOTE | 2022-12-20 01:43 | P.HP_ITS ---
Providers/Chief Complaint Admitting Physician: Herbie Cifuentes MD Primary Care Provider: Norman Lazo MD Chief Complaint: RESP. DISTRESS History of Present Illness Marie Hull is a 72 year old female with a past medical history of COPD, chronic hypoxic hypercapnic respiratory failure, on home trilogy machine, BMI of 16, who presents to [facility] due to shortness of breath, patient tells me she was just discharged on the hospital, she has persistent shortness o f breath today, with wheezing, nonproductive cough, she also had some chest discomfort, nonradiating, no diaphoresis, currently she is on BiPAP, resting comfortably, she does tell me she has been using her trilogy, last night she used it for roughly 4 hours Review of Systems Const: Denies: fever(s) Card: Reports: chest pain Resp: Reports: dyspnea GI: Denies: abdominal pain : Denies: flank pain Medications/Allergies Home Medications Medication Instructions Recorded Confirmed Last Taken Type aspirin 81 mg chewable tablet 81 mg PO DAILY 08/20/19 11/22/22 07/24/22 History ipratropium 0.5 mg-albuterol 3 mg 3 ml inhalation QID PRN wheezing 02/26/21 11/22/22 07/24/22 Rx (2.5 mg base)/3 mL nebulization 30 days #360 mL soln celecoxib 200 mg capsule 200 mg PO BID #180 caps 03/03/22 11/22/22 11/22/22 Rx oxygen #1 ea 03/24/22 11/22/22 07/24/22 Rx levocetirizine 5 mg tablet 5 mg PO DAILY #30 tabs 06/15/22 11/22/22 11/22/22 Rx metoprolol tartrate 25 mg tablet 25 mg PO BID #60 tabs 06/18/22 11/22/22 11/22/22 Rx albuterol sulfate 90 mcg/actuation 1 puff inhalation TID PRN 09/14/22 11/22/22 Unknown Rx aerosol inhaler (Ventolin HFA) Shortness Of Breath #18 grams fluticasone 100 mcg-salmeterol 50 1 inh inhalation BID #60 ea 09/14/22 11/22/22 11/22/22 Rx mcg/dose blistr powdr for inhalation (Advair Diskus) tiotropium bromide 18 mcg capsule 1 cap inhalation DAILY #1 inh 10/16/22 04/0 05/0811/22/22 Rx with inhalation device (Spiriva with HandiHaler) bimatoprost 0.01 % eye drops 1 drp ophthalmic (eye) QPM 10/20/22 11/22/22 11/21/22 History (Neisha) diltiazem HCl 30 mg tablet 30 mg PO TID #90 tabs 10/22/22 11/22/22 11/22/22 Rx Allergies Allergy/AdvReac Type Severity Reaction Status Date / Time levofloxacin [From Levaquin] AdvReac Intermediate ADR-Dizzine Verified 10/20/22 09:35 ss PFSH Acute PFSH: Medical History Acute on chronic respiratory failure with hypoxia and hypercapnia Atrial fibrillation transient, during acute COPD exacerbation in 2019 Back pain Chronic obstructive pulmonary emphysema Chronic respiratory failure with hypoxia and hypercapnia COPD (chronic obstructive pulmonary disease) History of echocardiogram 08/2019 EF 65%, grade I/IV diastolic dysfunction, PAP within normal limits History of PFTs 10/2019 severe airflow obstruction, FEV1/FVC of 33%, FEV1 0.57 L 29% predicted, FVC 1.76 L 71% predicted, TLC 107%, RV 163%, reduced DLCO at 25% Mass of upper lobe of left lung cavitary appearance, never biopsied due to risk of complication and non- surgical candidate, has been stable on imaging On home oxygen therapy 2-3 L BNC at baseline Osteoarthritis Osteoporosis Paroxysmal A-fib Personal history of nicotine dependence quit in 2018, but still with 2nd hand exposure Pseudomonas aeruginosa colonization Pulmonary fibrosis Pulmonary nodule left lower lobe Seasonal allergies Uses bilevel positive airway pressure (BPAP) ventilation at home trilogy, via [facility] emergency department Surgical History History of kyphoplasty (2014) L1, L2, L3, L5 performed by Dr. Roman Marquez Family History Mother CAD (coronary artery disease) Social History Smoking and tobacco status: former smoker Quit status (tobacco): has quit using tobacco Year quit tobacco: 2019 - 1PPD x 50 Years Second hand smoke exposure: Yes Alcohol intake: never Substance/Drug Use: never Lives independently: Yes Household members: none Marital status: Current occupational status: retired Do you think of yourself as: Straight/Heterosexual Current gender identity: Female Vitals/I&O/Wt Last Vital Signs Pulse 72 12/20/22 01:09 Resp 16 12/20/22 01:09 BP 119/68 12/20/22 01:09 Pulse Ox 96 12/20/22 01:09 O2 Del Method BiPAP 12/19/22 23:52 O2 Flow Rate 4 12/19/22 23:25 FiO2 35 12/19/22 23:52 Physical Exam Const: COMMON NORMALS: no acute distress and patient oriented x3 GENERAL APPEARANCE: cooperative, well kempt and well developed HENMT: COMMON NORMALS: normocephalic HEAD & SCALP: normocephalic Eye: COMMON NORMALS: Equal, round and reactive pupils present, EOMs intact bilaterally, conjunctivae normal and no scleral icterus CONJUNCTIVA: Yes conjunctivae normal PUPIL: Yes Equal, round and reactive pupils present Neck/C-Spine: COMMON NORMALS: full ROM, no lymphadenopathy, no JVD, Thyroid normal and No carotid bruits THYROID: Thyroid normal Lymph: LYMPHATIC: no lymphadenopathy noted Chest: COMMONS NORMALS: normal inspection of the chest Resp: COMMON NORMALS: normal respiratory effort, No retractions and No use of accessory muscles AUSCULTATION: diminished lung sounds diffuse Cardio: COMMON NORMALS: no JVD, regular rate, regular rhythm, S1 normal heart sound present, S2 normal heart sound present, No murmurs present (Cardio) and Peripheral pulses 2+ throughout RATE: regular rate RHYTHM: regular rhythm HEART SOUNDS: S1 normal heart sound present and S2 normal heart sound present GI: COMMON NORMALS: Normal to inspection, nondistended, normoactive bowel sounds present, Soft to palpation and non-tender PALPATION: Yes Soft to palpation : BLADDER/KIDNEY EXAM: Yes no CVA tenderness Extremity: COMMON NORMALS: normal to inspection, full ROM, no calf tenderness and no pedal edema Neuro: COMMON NORMALS: patient oriented x3, CN's II-XII intact bilaterally, moves all extremities, no focal motor deficits and no sensory deficits noted Psych: COMMON NORMALS: mental status grossly normal, Normal thought process present, cooperative and speech normal APPEARANCE: Yes well kempt SPEECH: Yes normal speech THOUGHT PROCESS: Normal thought process present Skin: COMMON NORMALS: turgor normal and no jaundice GENERAL SKIN EXAM: turgor normal Data 12/19/22 23:43 12/19/22 23:43 Micro: Microbiology 12/19/22 00:31 Blood Culture - Preliminary Blood SPECIMEN COLLECTED 12/19/22 00:31 Blood Culture - Preliminary Blood SPECIMEN COLLECTED Other data: EKG shows, personally reviewed by me peaked T waves I reviewed blood work A&P Assessment and plan (1) Acute on chronic respiratory failure with hypoxia and hypercapnia: (2) Acute exacerbation of chronic obstructive airways disease: (3) Chest pain: (4) Hyperkalemia: Plan Acute on chronic hypoxic and hypercarbic respiratory failure Plan -Monitor on MedSurg -Continue BiPAP -Continue Decadron -Continue doxycycline -Continue DuoNeb -Continue budesonide -Monitor respiratory status closely -Full code -Lovenox for DVT prophylaxis Chest pain -Serial EKGs, serial troponins, telemetry monitoring -Currently chest pain-free Acute hyperkalemia with peaked T waves, complaints of chest pain -We will give 10 units insulin, with D50 and 1 g calcium gluconate -Recheck BMP at 6 AM -Telemetry monitoring Attestations Medical Necessity Statement*: Patient requires hospitalization for COPD exacerbation, acute on chronic toxic hypercarbic respiratory failure chest pain, outpatient with observation Diagnoses Acute on chronic respiratory failure with hypoxia and hypercapnia J96.21; J96.22 Acute exacerbation of chronic obstructive airways disease J44.1 Chest pain R07.9 Hyperkalemia E87.5
--- NOTE | 2022-12-20 02:30 | ECG_ITS ---
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 Measurements Intervals [place] Rate: 84 P: 90 OR: 155 QRS: 96 QRSD: 90 T: 90 QT: 351 QTc: 417 Interpretive Statements SINUS RHYTHM BORDERLINE RIGHT AXIS DEVIATION [QRS AXIS > 90] Compared to ECG 12/20/2022 00:04:31 Early repolarization no longer present ST (T wave) deviation no longer present Electronically Signed On 12-20-2022 10:30:34 CDT by Jay Stark M.D. [id number]
[2022-12-20 02:33] LABS: Troponin 5 2HR 20.34 ng/L (0-10)
[2022-12-20 03:05] LABS: Troponin 5 2HR Delta -0.66 ABS# (0-10)
[2022-12-20] MEDS: doxycycline 100 MG in sodium chloride 0.9% (plus) 100 ML IV ×2 (03:11→14:42)
[2022-12-20] MEDS: calcium gluconate 0.1 gm/mL 10% SDV 10mL 1 GM IVP (03:12)
[2022-12-20] MEDS: pantoprazole 40 mg SDV IVP (03:12)
[2022-12-20] MEDS: enoxaparin 40 mg/0.4 mL Syringe SUBCUT (03:12)
[2022-12-20] MEDS: insulin regular-human 10 UNIT in SYRINGE 1 EACH 999 UNIT IVP (03:26)
[2022-12-20 04:04] LABS: Glucose Point of Care 256 mg/dL (70-110)
[2022-12-20 04:31] LABS: SARS Covid-2 Antigen Negative (Negative)
--- NOTE | 2022-12-20 04:38 | W.ED.SOB ---
HPI - SOB/Dyspnea General: Chief Complaint: Shortness of Breath/Dyspnea Stated Complaint: RESP. DISTRESS Time Seen by Provider: 12/19/22 23:32 Source: patient and family History of Present Illness: HPI Narrative: 72-year-old female presenting with shortness of breath. Daughter states that in the morning, her oxygen saturation was in the 60s. They turned her oxygen up with some improvement, but shortness of breath significantly worsened over the course the day despite using breathing treatments she has a history of COPD. She has had a cough, no significant sputum. She has a trilogy machine at home, but family is unsure if it is functioning appropriately, because this seems to happen in the morning when it does happen. MD elicited complaint: shortness of breath, cough and chest pain Pertinent past history: COPD Onset (ago): hour(s) Context: other Timing: progressively worsening Severity: moderate Exacerbating factors: lying flat, exertion and coughing Relieving factors: oxygen and bronchodilators Known history of: COPD Associated symptoms: Reports chest congestion, chest pain, cough, nausea and orthopnea; Deny abdominal pain, fever(s), palpitations or vomiting Treatment prior to arrival: oxygen and bronchodilator Related Data: Home oxygen amount: 2 liters Review of Systems Const: Denies: fever(s) ENMT: Denies: throat pain Card: Reports: chest pain and orthopnea; Denies: palpitations Resp: Reports: chest congestion GI: Reports: nausea; Denies: abdominal pain or vomiting [facility] ED PFSH: Medical History Acute on chronic respiratory failure with hypoxia and hypercapnia Atrial fibrillation transient, during acute COPD exacerbation in 2019 Back pain Chronic obstructive pulmonary emphysema Chronic respiratory failure with hypoxia and hypercapnia COPD (chronic obstructive pulmonary disease) History of echocardiogram 08/2019 EF 65%, grade I/IV diastolic dysfunction, PAP within normal limits History of PFTs 10/2019 severe airflow obstruction, FEV1/FVC of 33%, FEV1 0.57 L 29% predicted, FVC 1.76 L 71% predicted, TLC 107%, RV 163%, reduced DLCO at 25% Mass of upper lobe of left lung cavitary appearance, never biopsied due to risk of complication and non-surgical candidate, has been stable on imaging On home oxygen therapy 2-3 L BNC at baseline Osteoarthritis Osteoporosis Paroxysmal A-fib Personal history of nicotine dependence quit in 2019, but still with 2nd hand exposure Pseudomonas aeruginosa colonization Pulmonary fibrosis Pulmonary nodule left lower lobe Seasonal allergies Uses bilevel positive airway pressure (BPAP) ventilation at home [facility], via [facility] Surgical History History of kyphoplasty (2014) L1, L2, L3, L5 performed [address] Dr. Roman Marquez Family History Mother CAD (coronary artery disease) Social History Smoking and tobacco status: former smoker Quit status (tobacco): has quit using tobacco Year quit tobacco: 2019 - 1PPD x 50 Years Second hand smoke exposure: Yes Alcohol intake: never Substance/Drug Use: never Lives independently: Yes Household members: none Marital status: Current occupational status: retired Do you think of yourself as: Straight/Heterosexual Current gender identity: Female Physical Exam Const: GENERAL APPEARANCE: cooperative, ill appearing and frail appearing HENMT: COMMON NORMALS: normocephalic, atraumatic and Normal external nose present HEAD & SCALP: normocephalic and atraumatic FACE & SINUS: normal facial exam and face symmetric NOSE: Normal external nose present Eye: COMMON NORMALS: Equal, round and reactive pupils present and EOMs intact bilaterally PUPIL: Yes Equal, round and reactive pupils present Neck/C-Spine: GENERAL: Yes trachea midline Chest: CHEST: Yes Symmetrical chest wall rise Resp: EFFORT & INSPECTION: Yes respiratory distress, Yes labored and Yes uses accessory muscles AUSCULTATION: wheezes and diminished lung sounds Cardio: COMMON NORMALS: regular rate and regular rhythm RATE: regular rate RHYTHM: regular rhythm GI: COMMON NORMALS: Normal to inspection, nondistended, normoactive bowel sounds present Extremity: COMMON NORMALS: no pedal edema Neuro: NICOLE COMA SCALE: document GCS findings Nicole coma scale eye opening: Spontaneous [place] coma scale verbal response: Orientated [place] coma scale motor response: Obey commands Nicole coma scale total score: 15 SENSORY EXAM: Yes extremities (intact) Psych: COMMON NORMALS: speech normal SPEECH: Yes normal speech Skin: COMMON NORMALS: no rashes or lesions noted GENERAL SKIN EXAM: no rashes or lesions noted Course Vital Signs: Vital signs: Vital Signs Temperature 97.5 F L 12/20/22 03:46 Pulse Rate 89 12/20/22 03:46 Respiratory Rate 18 12/20/22 03:46 Blood Pressure 124/57 12/20/22 03:46 Pulse Oximetry 97 12/20/22 03:46 Oxygen Delivery Me thod Room Air 12/20/22 02:10 Oxygen Flow Rate 4 12/19/22 23:25 Fraction of Inspir ed Oxygen 35 12/19/22 23:52 MDM - SOB/Dyspnea Medical Decision Making Mild to moderate respiratory distress. This is despite dexamethasone and breathing treatments. Initial PCO2 was 80 with a pH of 7.3. Because of this, the patient was placed on BiPAP. She had decently quick improvement. No infiltrate on chest x-ray. COVID antigen is negative. First troponin was 21. BNP is only 500. Lactic acid is 0.6. She will be observed for COPD exacerbation with hypercapnic respiratory failure. Lab Data 12/19/22 23:43 12/19/22 23:43 Labs/Radiology: Radiology Impressions Chest X-Ray 12/19/22 23:38 IMPRESSION: 1. Emphysema. 2. Biapical scarring. 3. No significant interval change. Laboratory Results WBC 7.9 10^3/uL (4.0-10.0) 12/19/22 23:43 RBC 3.85 10^6/uL (4.1-5.3) L 12/19/22 23:43 Hgb 11.0 g/dL (11.5-15.3) L 12/19/22 23:43 Hct 37.7 % (37.0-47.0) 12/19/22 23:43 MCV 97.9 fl (81-99) 12/19/22 23:43 MCH 28.6 pg (28.0-34.0) 12/19/22 23:43 MCHC 29.2 g/dL (30.0-36.0) L 12/19/22 23:43 RDW 14.6 % (12.1-15.1) 12/19/22 23:43 Plt Count 348 10^3/cmm (130-400) 12/19/22 23:43 MPV 9.4 fL (7.4-10.4) 12/19/22 23:43 Neut % (Auto) 53.9 % 12/19/22 23:43 Lymph % (Auto) 26.6 % 12/19/22 23:43 [place] % (Auto) 15.0 % 12/19/22 23:43 Eos % (Auto) 3.7 % 12/19/22 23:43 Baso % (Auto) 0.5 % 12/19/22 23:43 Neut # (Auto) 4.23 10^3/uL (1.8-7.7) 12/19/22 23:43 Lymph # (Auto) 2.1 10^3/uL (0.8-4.8) 12/19/22 23:43 [place] # (Auto) 1.2 10^3/uL (0.2-0.9) H 12/19/22 23:43 Eos # (Auto) 0.3 10^3/uL (0.0-0.8) 12/19/22 23:43 Baso # (Auto) 0.0 10^3/uL (0.0-0.1) 12/19/22 23:43 Nucleated RBC % (auto) 0 % 12/19/22 23:43 Nucleated RBCs # 0.0 /100WBC 12/19/22 23:43 Specimen Type Arterial 12/19/22 23:37 Sample Site Radial, left 12/19/22 23:37 ABG pH 7.32 (7.35-7.45) L 12/19/22 23:37 ABG pCO2 80.0 mmHg (35-45) H* 12/19/22 23:37 ABG pO2 51.1 mmHg (80.0-100.0) L 12/19/22 23:37 ABG HCO3 41.0 mmol/L (22-26) H 12/19/22 23:37 ABG Base Excess 11.9 mmol/L (-2.0-2.0) H 12/19/22 23:37 Nikolas Test Pos 12/19/22 23:37 Hematocrit 34.7 % (37-47) L 12/19/22 23:37 Hgb O2 Saturation 81.7 % (95-100) L 12/19/22 23:37 Carboxyhemoglobin 4.8 %THgb (0.4-20.1) 12/19/22 23:37 Methemoglobin 0.8 % (0.4-1.5) 12/19/22 23:37 Total Hemoglobin 11.3 g/dL (12-16) L 12/19/22 23:37 O2 Delivery Device Nc 12/19/22 23:37 O2 Liters/Min 4.0 % 12/19/22 23:37 [employer] Tractor Operator ID [email or web address] 12/19/22 23:37 Sodium 136 mmol/L (136-145) 12/19/22 23:43 Potassium 5.5 mmol/L (3.5-5.1) H 12/19/22 23:43 Chloride 95 mmol/L (98-107) L 12/19/22 23:43 Carbon Dioxide 37 mmol/L (22-29) H 12/19/22 23:43 Anion Gap 9.5 (5-19) 12/19/22 23:43 BUN 15 mg/dL (8-23) 12/19/22 23:43 Creatinine 0.6 mg/dL (0.5-0.9) 12/19/22 23:43 GFR Calculation Not Reportable 12/19/22 23:43 Glucose 110 mg/dL (65-115) 12/19/22 23:43 Calculated Osmolality 283 mOsm/kg (285-295) L 12/19/22 23:43 Lactic Acid 0.6 mmol/L (0.5-2.2) 12/19/22 23:43 Calcium 9.5 mg/dL (8.5-10.5) 12/19/22 23:43 Magnesium 2.0 mg/dL (1.7-2.3) 12/19/22 23:43 Total Bilirubin 0.2 mg/dL (0.15-1.2) 12/19/22 23:43 AST 14 U/L (0-32) 12/19/22 23:43 ALT 7 U/L (0-33) 12/19/22 23:43 Alkaline Phosphatase 55 U/L (35-105) 12/19/22 23:43 Troponin T Baseline 21 ng/L (0-10) H 12/19/22 23:43 NT-Pro-B Natriuret Pep 554 pg/mL (0-125) H 12/19/22 23:43 Total Protein 6.6 g/dL (6.6-8.7) 12/19/22 23:43 Albumin 3.5 g/dL (3.5-5.2) 12/19/22 23:43 Globulin 3.1 g/dL (1.3-4.6) 12/19/22 23:43 SARS-CoV-2 Ag (Rapid) Negative (Negative) 12/19/22 22:43 Discharge Plan Discharge Patient Disposition: Admitted As Inpatient Admit Provider: Herbie Cifuentes Clinical Impression: Acute on chronic respiratory failure with hypoxia and hypercapnia, Acute exacerbation of chronic obstructive airways disease Condition: Fair Coding Level of Care Code ED Senior Network Security Engineer for Jihan Jimenes
--- NOTE | 2022-12-20 05:38 | ECG_ITS ---
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 Measurements Intervals [place] Rate: 79 P: 87 IA: 152 QRS: 94 QRSD: 96 T: 88 QT: 364 QTc: 417 Interpretive Statements SINUS RHYTHM BORDERLINE RIGHT AXIS DEVIATION [QRS AXIS > 90] Compared to ECG 12/20/2022 02:30:32 No significant changes Electronically Signed On 12-20-2022 10:30:38 CDT by Jay Stark M.D. [id number]
[2022-12-20 06:09] LABS: Troponin 5 6HR 22.06 ng/L (0-10)
[2022-12-20 06:10] LABS: Troponin 5 6HR Delta 1.06 ng/L (0-12)
[2022-12-20] MEDS: ipratropium-albuterol 3 mL Neb INHALATION ×4 (07:46→19:42)
[2022-12-20] MEDS: budesonide 0.5 mg/2 mL Neb INHALATION ×2 (07:46→19:42)
[2022-12-20] MEDS: aspirin 81 mg Chew Tablet PO (09:09)
[2022-12-20 12:04] LABS: ABG PH Result 7.35 (7.35-7.45); Arterial Blood Gas Hematocrit 34.2 % (37-47); Base Excess ABG 13.1 mmol/L (-2.0-2.0); Blood Gas Allen Test Pos; Blood Gas Operator Identificat MONRO; Blood Gas Sample Site Brachial, left; Blood Gas Sample Type Arterial; HCO3 ABG 41.6 mmol/L (22-26); Oxygen Device NC
[2022-12-20] MEDS: dexamethasone 10 mg/mL INJ 6 MG IVP ×2 (13:13→16:29)
[2022-12-20 15:11] LABS: Alanine Aminotransferase < 5 U/L (0-33); Albumin Level 3.7 g/dL (3.5-5.2); Alkaline Phosphatase 51 U/L (35-105); Anion Gap 12.5 (5-19); Aspartate Amino Transferase 13 U/L (0-32); Blood Urea Nitrogen 19 mg/dL (8-23); Calcium 9.3 mg/dL (8.5-10.5); Carbon Dioxide 38 mmol/L (22-29); Chloride 93 mmol/L (98-107); Globulin 2.8 g/dL (1.3-4.6); Glucose 130 mg/dL (65-115); Osmolality Calculated 290 mOsm/kg (285-295); Potassium 5.5 mmol/L (3.5-5.1); Sodium 138 mmol/L (136-145); Total Bilirubin 0.2 mg/dL (0.15-1.2); Total Protein 6.5 g/dL (6.6-8.7)
--- NOTE | 2022-12-20 16:15 | PM.MISC ---
Miscellaneous Note Purpose of Documentation: Overnight labs and H&P reviewed. Has significant wheezing. Repeated ABG shows continued hypercapnia. Placed back on BiPAP this afternoon. Hyperkalemia potassium 5.5, received insulin dextrose. Change to inpatient admission Increase steroids to dexamethasone 6 mg IV every 12 hours and monitor.
[2022-12-20] MEDS: insulin regular-human 10 UNIT in SYRINGE 1 EACH IVP (16:29)
[2022-12-20] MEDS: metoprolol tartrate 25 mg Tablet PO (18:19)
[2022-12-21] VITALS (18 sets, daily range): BP systolic 98–114; BP diastolic 59–69; PULSE 72–100; RESP 15–20; TEMP 36.3–36.9; O2SAT 93–100
[2022-12-21] MEDS: doxycycline 100 MG in sodium chloride 0.9% (plus) 100 ML IV ×2 (01:45→14:15)
[2022-12-21] MEDS: pantoprazole 40 mg SDV IVP (01:45)
[2022-12-21] MEDS: enoxaparin 40 mg/0.4 mL Syringe SUBCUT (01:46)
[2022-12-21] MEDS: dexamethasone 10 mg/mL INJ 6 MG IVP (04:57)
[2022-12-21 05:18] LABS: Hematocrit 34.4 % (37.0-47.0); Hemoglobin 10.2 g/dL (11.5-15.3); Lymphocytes # 0.7 10^3/uL (0.8-4.8); Lymphocytes % 11.8 %; Mean Corpuscular HGB Conc 29.7 g/dL (30.0-36.0); Mean Corpuscular Hemoglobin 28.7 pg (28.0-34.0); Mean Corpuscular Volume 96.6 fl (81-99); Mean Platelet Volume 9.7 fL (7.4-10.4); Monocytes # 0.4 10^3/uL (0.2-0.9); Monocytes % 7.5 %; Neutrophils # 4.47 10^3/uL (1.8-7.7); Neutrophils % 80.3 %; Nucleated Red Blood Cells % 0 %; Platelet Count 325 10^3/cmm (130-400); Red Blood Count 3.56 10^6/uL (4.1-5.3); Red Cell Distribution Width 14.6 % (12.1-15.1); White Blood Count 5.6 10^3/uL (4.0-10.0)
[2022-12-21 05:34] LABS: Alanine Aminotransferase 6 U/L (0-33); Albumin Level 3.1 g/dL (3.5-5.2); Alkaline Phosphatase 47 U/L (35-105); Anion Gap 12.8 (5-19); Aspartate Amino Transferase 13 U/L (0-32); Blood Urea Nitrogen 19 mg/dL (8-23); Calcium 9.4 mg/dL (8.5-10.5); Carbon Dioxide 34 mmol/L (22-29); Chloride 92 mmol/L (98-107); Globulin 2.9 g/dL (1.3-4.6); Glucose 185 mg/dL (65-115); Osmolality Calculated 285 mOsm/kg (285-295); Potassium 4.8 mmol/L (3.5-5.1); Sodium 134 mmol/L (136-145); Total Bilirubin 0.2 mg/dL (0.15-1.2)
[2022-12-21] MEDS: ipratropium-albuterol 3 mL Neb INHALATION ×4 (08:05→20:51)
[2022-12-21] MEDS: budesonide 0.5 mg/2 mL Neb INHALATION ×2 (08:05→20:51)
[2022-12-21] MEDS: metoprolol tartrate 25 mg Tablet PO ×2 (08:48→17:59)
[2022-12-21] MEDS: dilTIAZem 30 mg Tablet PO ×3 (09:22→20:39)
--- NOTE | 2022-12-21 10:37 | PC.CHAP ---
Pastoral Care Encounter/Spiritual Assessment Type of Contact [] Declined pastoral worker visit [] Patient/Family/Request visit [] Outpatient visit [] Follow-up visit [] Physician referral [] Code/Alert [x] Routine visit [] Staff referral [] Actively dying [] Patient sleeping [] Family support [] [] Out of room [] Palliative care [] [x] Receiving care in room [] Pre-surgical visit [] Trauma [] Long length of stay [] ICU visit [] Other: Relational/Emotional Strength [] Patient feels connected with others/family/visitors/staff [] Distress [] Loneliness/isolation [] Abandonment Spirituality of Patient [] Person of Valerie [] Attends Muslim of their Valerie [] Believes in Prayer [] Reads Bible or Uatsdin materials [] There are Spiritual issues to be addressed Report Developer Interventions [x] Prayer [] Active listening [] Non-anxious presence [] Spiritual/emotional support [] Crisis/trauma care [] Spiritual counseling [] Bereavement support [] Provided bereavement packet [] Provided Bible/devotional materials [] Provided toy/stuffed animal, coloring book to patient or family member [] Provided Communion [] Anointing/[place] [] Salvation [] Completed spiritual assessment [] Other: Impact on Illness or Injury [] Angry [] Fearful [] Anxious [] Often cries [] Exhaustion [] Unable to work [] Unable to attend religion [] Unable to walk/stand [] Unable to read [] Unable to drive [] Unable to eat/drink [] Unable to sleep [] Unable to be with family [] Patient intubated [] Other: Summary Time spent with patient
--- NOTE | 2022-12-21 15:27 | PM.PN ---
Subjective Subjective: Patient was seen and examined this morning she was complaining of, nonproductive cough, still has significant shortness of breath. Medications: Medication Review Details: Generic Name Dose Route Start Last Admin Trade Name Rowdy PRN Reason Stop Dose Admin Albuterol/Ipratrop ium 3 ml 12/20/22 08:00 12/21/22 11:57 Ipratropium-Albu terol 3 Ml Neb INHALATION 3 ml QID.RESPIRATORY S CH Administration Aspirin 81 mg 12/20/22 09:00 12/21/22 08:45 Aspirin 81 Mg Ch ew Tablet PO Not Given DAILY YOLA Budesonide 0.5 mg 12/20/22 08:00 12/21/22 08:05 Budesonide 0.5 M g/2 Ml Neb INHALATION 0.5 mg BID.RESPIRATORY S CH Administration Diltiazem HCl 30 mg 12/20/22 09:00 12/21/22 09:22 Diltiazem 30 Mg Tablet PO 30 mg TID YOLA Administration Enoxaparin Sodium 40 mg 12/20/22 02:23 12/21/22 01:46 Enoxaparin 40 Mg /0.4 Ml Syringe SUBCUT 40 mg Q24H YOLA Administration Doxycycline Hyclat e 100 mg/ 100 mls @ 100 mls /hr 12/20/22 02:30 12/21/22 14:15 Sodium Chloride IV 100 mls/hr Q12H YOLA Administration Protocol Metoprolol Tartrat e 25 mg 12/20/22 09:00 12/21/22 08:48 Metoprolol Tartr ate 25 Mg Tablet PO 25 mg BID YOLA Administration Pantoprazole Sodiu m 40 mg 12/20/22 02:23 12/21/22 01:45 Pantoprazole 40 Mg Sdv IVP 40 mg Q24H YOLA Administration Vitals/I&O/Wt Last Vital Signs Temp 98.2 F 12/21/22 12:00 Pulse 86 12/21/22 12:04 Resp 15 12/21/22 12:00 BP 111/61 12/21/22 12:00 Pulse Ox 99 12/21/22 12:00 O2 Del Method Nasal Cannula 12/21/22 12:00 O2 Flow Rate 3 12/21/22 11:58 FiO2 35 12/20/22 23:16 12/21/22 12/21/22 12/21/22 06:59 14:59 22:59 Intake Total 100 / 630.1 960 / 960 Balance 100 / 630.1 960 / 960 Physical Exam Const: COMMON NORMALS: patient oriented x3 HENMT: COMMON NORMALS: normocephalic and atraumatic HEAD & SCALP: normocephalic and atraumatic Resp: OTHER: Diminished air entry bilaterally, minimal bilateral expiratory wheezing. Cardio: COMMON NORMALS: regular rate, regular rhythm, S1 normal heart sound present, S2 normal heart sound present, No gallops present (Cardio), No murmurs present (Cardio), No rub (Cardio) and Peripheral pulses 2+ throughout RATE: regular rate RHYTHM: regular rhythm HEART SOUNDS: S1 normal heart sound present and S2 normal heart sound present PERIPHERAL PULSES: Peripheral pulses 2+ throughout GI: COMMON NORMALS: Normal to inspection, nondistended, normoactive bowel sounds present, Soft to palpation, non-tender, No hepatosplenomegaly present and no masses AUSCULTATION: Yes normoactive bowel sounds PALPATION: Yes Soft to palpation and Yes No hepatosplenomegaly present RECTAL EXAM: deferred Extremity: COMMON NORMALS: no clubbing, cyanosis or edema and no pedal edema Neuro: COMMON NORMALS: patient oriented x3 Data 12/21/22 04:35 12/21/22 04:35 Micro: Microbiology 12/19/22 00:31 Blood Culture - Preliminary Blood NEGATIVE TO DATE 12/19/22 00:31 Blood Culture - Preliminary Blood NEGATIVE TO DATE A&P Assessment and plan (1) Acute on chronic respiratory failure with hypoxia and hypercapnia: (2) Acute exacerbation of chronic obstructive airways disease: (3) Chest pain: (4) Hyperkalemia: Plan Acute on chronic hypoxic and hypercarbic respiratory failure Plan -Monitor on MedSurg -Continue BiPAP -Continue Decadron -Continue doxycycline -Continue DuoNeb -Continue budesonide -Monitor respiratory status closely -Full code -Lovenox for DVT prophylaxis Chest pain -Serial EKGs, serial troponins, telemetry monitoring -Currently chest pain-free Acute hyperkalemia with peaked T waves, complaints of chest pain -We will give 10 units insulin, with D50 and 1 g calcium gluconate -Recheck BMP at 6 AM -Telemetry monitoring Attestations Medical Necessity Statement*: Needs to be in hospital for management of respiratory failure needs for IV steroids Coding Level of Care Code Acute Code for Chg Fwd Diagnoses Acute on chronic respiratory failure with hypoxia and hypercapnia J96.21; J96.22 Acute exacerbation of chronic obstructive airways disease J44.1 Chest pain R07.9 Hyperkalemia E87.5
[2022-12-22] VITALS (13 sets, daily range): BP systolic 113–149; BP diastolic 57–68; PULSE 71–85; RESP 17–18; TEMP 36.6–36.8; O2SAT 90–100
[2022-12-22] MEDS: doxycycline 100 MG in sodium chloride 0.9% (plus) 100 ML IV ×2 (02:11→14:56)
[2022-12-22] MEDS: enoxaparin 40 mg/0.4 mL Syringe SUBCUT (02:11)
[2022-12-22] MEDS: pantoprazole 40 mg SDV IVP (02:27)
[2022-12-22 05:53] LABS: Hematocrit 35.1 % (37.0-47.0); Hemoglobin 10.8 g/dL (11.5-15.3); Lymphocytes # 0.5 10^3/uL (0.8-4.8); Lymphocytes % 6.9 %; Mean Corpuscular HGB Conc 30.8 g/dL (30.0-36.0); Mean Corpuscular Hemoglobin 29.1 pg (28.0-34.0); Mean Corpuscular Volume 94.6 fl (81-99); Mean Platelet Volume 10.1 fL (7.4-10.4); Monocytes # 0.2 10^3/uL (0.2-0.9); Monocytes % 3.5 %; Neutrophils # 5.84 10^3/uL (1.8-7.7); Neutrophils % 89.1 %; Nucleated Red Blood Cells % 0 %; Platelet Count 330 10^3/cmm (130-400); Red Blood Count 3.71 10^6/uL (4.1-5.3); White Blood Count 6.6 10^3/uL (4.0-10.0)
[2022-12-22 06:12] LABS: Alanine Aminotransferase 7 U/L (0-33); Albumin Level 3.6 g/dL (3.5-5.2); Alkaline Phosphatase 46 U/L (35-105); Anion Gap 10.4 (5-19); Aspartate Amino Transferase 12 U/L (0-32); Blood Urea Nitrogen 18 mg/dL (8-23); Calcium 9.4 mg/dL (8.5-10.5); Carbon Dioxide 37 mmol/L (22-29); Chloride 94 mmol/L (98-107); Globulin 2.8 g/dL (1.3-4.6); Glucose 130 mg/dL (65-115); Osmolality Calculated 288 mOsm/kg (285-295); Potassium 4.4 mmol/L (3.5-5.1); Sodium 137 mmol/L (136-145); Total Bilirubin 0.2 mg/dL (0.15-1.2); Total Protein 6.4 g/dL (6.6-8.7)
[2022-12-22] MEDS: metoprolol tartrate 25 mg Tablet PO ×2 (08:16→18:01)
[2022-12-22] MEDS: dilTIAZem 30 mg Tablet PO ×3 (08:16→22:25)
[2022-12-22] MEDS: ipratropium-albuterol 3 mL Neb INHALATION ×4 (09:04→19:40)
[2022-12-22] MEDS: budesonide 0.5 mg/2 mL Neb INHALATION ×2 (09:04→19:40)
--- NOTE | 2022-12-22 13:20 | PM.PN ---
Subjective Subjective: Patient was seen and examined this morning, shortness of breath has slightly improved, currently supplemental oxygen requirement is at baseline. Medications: Medication Review Details: Generic Name Dose Route Start Last Admin Trade Name Rowdy PRN Reason Stop Dose Admin Albuterol/Ipratrop ium 3 ml 12/20/22 08:00 12/22/22 11:24 Ipratropium-Albu terol 3 Ml Neb INHALATION 3 ml QID.RESPIRATORY S CH Administration Aspirin 81 mg 12/20/22 09:00 12/22/22 08:17 Aspirin 81 Mg Ch ew Tablet PO Not Given DAILY YOLA Budesonide 0.5 mg 12/20/22 08:00 12/22/22 09:04 Budesonide 0.5 M g/2 Ml Neb INHALATION 0.5 mg BID.RESPIRATORY S CH Administration Diltiazem HCl 30 mg 12/20/22 09:00 12/22/22 08:16 Diltiazem 30 Mg Tablet PO 30 mg TID YOLA Administration Enoxaparin Sodium 40 mg 12/20/22 02:23 12/22/22 02:11 Enoxaparin 40 Mg /0.4 Ml Syringe SUBCUT 40 mg Q24H YOLA Administration Doxycycline Hyclat e 100 mg/ 100 mls @ 100 mls /hr 12/20/22 02:30 12/22/22 03:43 Sodium Chloride IV Infused Q12H YOLA Infusion Protocol Methylprednisolone Sodium Succinate 60 mg 12/22/22 05:45 12/22/22 06:02 Methylprednisolo ne Sod Succ 40 Mg Sdv IVP 60 mg Q8H YOLA Administration Metoprolol Tartrat e 25 mg 12/20/22 09:00 12/22/22 08:16 Metoprolol Tartr ate 25 Mg Tablet PO 25 mg BID YOLA Administration Pantoprazole Sodiu m 40 mg 12/20/22 02:23 12/22/22 02:27 Pantoprazole 40 Mg Sdv IVP 40 mg Q24H YOLA Administration Vitals/I&O/Wt Last Vital Signs Temp 98.2 F 12/22/22 12:00 Pulse 81 12/22/22 12:00 Resp 18 12/22/22 12:00 BP 130/66 12/22/22 12:00 Pulse Ox 94 12/22/22 12:00 O2 Del Method Nasal Cannula 12/22/22 12:00 O2 Flow Rate 2 12/22/22 11:26 FiO2 35 12/20/22 23:16 12/21/22 12/22/22 12/22/22 22:59 06:59 14:59 Intake Total / 1660 2009 480 / 480 Balance 700 / 0 2009 480 / 480 Physical Exam Const: COMMON NORMALS: patient oriented x3 HENMT: COMMON NORMALS: normocephalic and atraumatic HEAD & SCALP: normocephalic and atraumatic Resp: OTHER: Diminished air entry bilaterally, minimal bilateral expiratory wheezing. Cardio: COMMON NORMALS: regular rate, regular rhythm, S1 normal heart sound present, S2 normal heart sound present, No gallops present (Cardio), No murmurs present (Cardio), No rub (Cardio) and Peripheral pulses 2+ throughout RATE: regular rate RHYTHM: regular rhythm HEART SOUNDS: S1 normal heart sound present and S2 normal heart sound present PERIPHERAL PULSES: Peripheral pulses 2+ throughout GI: COMMON NORMALS: Normal to inspection, nondistended, normoactive bowel sounds present, Soft to palpation, non-tender, No hepatosplenomegaly present and no masses AUSCULTATION: Yes normoactive bowel sounds PALPATION: Yes Soft to palpation and Yes No hepatosplenomegaly present RECTAL EXAM: deferred Extremity: COMMON NORMALS: no clubbing, cyanosis or edema and no pedal edema Neuro: COMMON NORMALS: patient oriented x3 Data 12/22/22 05:00 12/22/22 05:00 A&P Assessment and plan (1) Acute on chronic respiratory failure with hypoxia and hypercapnia: (2) Acute exacerbation of chronic obstructive airways disease: (3) Chest pain: (4) Hyperkalemia: Plan Acute on chronic hypoxic and hypercarbic respiratory failure Plan -Monitor on MedSurg -Continue BiPAP -Continue Decadron -Continue doxycycline -Continue DuoNeb -Continue budesonide -Monitor respiratory status closely -Full code -Lovenox for DVT prophylaxis -Chest pain: -Troponin trend : -telemetry monitoring -Currently chest pain-free Acute hyperkalemia with peaked T waves, complaints of chest pain -We will give 10 units insulin, with D50 and 1 g calcium gluconate -Recheck BMP at 6 AM -Telemetry monitoring Attestations Medical Necessity Statement*: Needs to be in hospital for IV steroids. Coding Level of Care Code Acute Code for Chg Fwd Diagnoses Acute on chronic respiratory failure with hypoxia and hypercapnia J96.21; J96.22 Acute exacerbation of chronic obstructive airways disease J44.1 Chest pain R07.9 Hyperkalemia E87.5
[2022-12-23] MEDS: doxycycline 100 MG in sodium chloride 0.9% (plus) 100 ML IV (03:09)
[2022-12-23] MEDS: pantoprazole 40 mg SDV IVP (03:09)
[2022-12-23] MEDS: enoxaparin 40 mg/0.4 mL Syringe SUBCUT (03:09)
[2022-12-23 04:00] VITALS: BP 111/66; PULSE 76; RESP 18; TEMP 36.6; O2SAT 93
[2022-12-23 06:00] VITALS: PULSE 66
[2022-12-23 06:52] LABS: Hematocrit 37.4 % (37.0-47.0); Hemoglobin 10.9 g/dL (11.5-15.3); Lymphocytes # 0.5 10^3/uL (0.8-4.8); Lymphocytes % 9.6 %; Mean Corpuscular HGB Conc 29.1 g/dL (30.0-36.0); Mean Corpuscular Hemoglobin 28.4 pg (28.0-34.0); Mean Corpuscular Volume 97.4 fl (81-99); Mean Platelet Volume 9.6 fL (7.4-10.4); Monocytes # 0.4 10^3/uL (0.2-0.9); Monocytes % 7.7 %; Neutrophils # 4.18 10^3/uL (1.8-7.7); Neutrophils % 82.1 %; Nucleated Red Blood Cells % 0 %; Platelet Count 303 10^3/cmm (130-400); Red Blood Count 3.84 10^6/uL (4.1-5.3); Red Cell Distribution Width 15.1 % (12.1-15.1); White Blood Count 5.1 10^3/uL (4.0-10.0)
[2022-12-23 07:09] LABS: Alanine Aminotransferase 7 U/L (0-33); Albumin Level 3.2 g/dL (3.5-5.2); Alkaline Phosphatase 40 U/L (35-105); Aspartate Amino Transferase 12 U/L (0-32); Blood Urea Nitrogen 21 mg/dL (8-23); Carbon Dioxide 31 mmol/L (22-29); Chloride 97 mmol/L (98-107); Globulin 2.7 g/dL (1.3-4.6); Glucose 117 mg/dL (65-115); Osmolality Calculated 284 mOsm/kg (285-295); Sodium 135 mmol/L (136-145); Total Bilirubin 0.2 mg/dL (0.15-1.2); Total Protein 5.9 g/dL (6.6-8.7)
[2022-12-23 07:17] LABS: Anion Gap 11.7 (5-19); Potassium 4.7 mmol/L (3.5-5.1)
[2022-12-23 08:00] VITALS: BP 142/64; PULSE 68; PULSE 76; RESP 16; RESP 18; TEMP 36.7; O2SAT 97; O2SAT 98
[2022-12-23] MEDS: budesonide 0.5 mg/2 mL Neb INHALATION (08:32)
[2022-12-23] MEDS: ipratropium-albuterol 3 mL Neb INHALATION (08:32)
[2022-12-23 08:50] VITALS: BP 118/60; PULSE 72; RESP 18; TEMP 36.7
[2022-12-23 09:59] VITALS: BP 118/60; PULSE 72; RESP 18; TEMP 36.7; O2SAT 95
[2022-12-23] MEDS: metoprolol tartrate 25 mg Tablet PO (10:26)
[2022-12-23] MEDS: dilTIAZem 30 mg Tablet PO (10:26)
--- NOTE | 2022-12-23 10:29 | PC.SOCIAL ---
Imm updated Imm updated with patient. Copy of page 2 provided. Patient verbalized understanding. Copy in chart initialed, dated and timed.
--- NOTE | 2022-12-23 10:44 | PM.DCS ---
Discharge Providers Date of Admission: 12/20/22 02:16 Date of Discharge: December 23, 2022 Attending Provider at Admission: Herbie Cifuentes MD Attending Provider at Discharge: Hira Carrizales MD Primary Care Provider: Norman Lazo MD Diagnoses at Discharge Discharge Diagnosis (1) Acute on chronic respiratory failure with hypoxia and hypercapnia: Status: Acute (2) Acute exacerbation of chronic obstructive airways disease: Status: Acute (3) Chest pain: Status: Acute (4) Hyperkalemia: Status: Acute Reason for Visit Reason for Visit: RESP. DISTRESS Hospital Course Hospital Course 72 year old female with past medical history of COPD Gold class D, with chronic hypoxic respiratory failure, paroxysmal atrial fibrillation, pulmonary fibrosis, and history of Pseudomonas colonization came in with chief complaint of worsening shortness of breath, associated with nonproductive cough and wheezing chest discomfort, she was admitted for the management of acute on chronic hypoxic hypercapnic respiratory failure secondary to COPD exacerbation, during the hospital stay she was kept on BiPAP steroids DuoNebs doxycycline, supplemental oxygen as needed, to which she responded well, at the time of discharge, she was at her baseline oxygen requirement shortness of breath and wheezing had improved.Chest pain is likely noncardiac, troponin trend was unremarkable, no acute ST-T wave changes on EKG was noted, during hospital stay she was mostly not complaining of any chest pain. During this hospital stay she was also managed for hyperkalemia, received hyperkalemia cocktail, serum potassium had normalized. She was discharged on p.o. prednisone 40 daily for another 7 days, overall she responded well to above medical management and was discharged in stable condition to home, she will continue to follow PCP as well as pulmonary as outpatient. Physical Exam Const: COMMON NORMALS: patient oriented x3 HENMT: COMMON NORMALS: normocephalic and atraumatic HEAD & SCALP: normocephalic and atraumatic Resp: OTHER: Diminished air entry bilaterally, minimal bilateral expiratory wheezing. Cardio: COMMON NORMALS: regular rate, regular rhythm, S1 normal heart sound present, S2 normal heart sound present, No gallops present (Cardio), No murmurs present (Cardio), No rub (Cardio) and Peripheral pulses 2+ throughout RATE: regular rate RHYTHM: regular rhythm HEART SOUNDS: S1 normal heart sound present and S2 normal heart sound present PERIPHERAL PULSES: Peripheral pulses 2+ throughout GI: COMMON NORMALS: Normal to inspection, nondistended, normoactive bowel sounds present, Soft to palpation, non-tender, No hepatosplenomegaly present and no masses AUSCULTATION: Yes normoactive bowel sounds PALPATION: Yes Soft to palpation and Yes No hepatosplenomegaly present RECTAL EXAM: deferred Extremity: COMMON NORMALS: no clubbing, cyanosis or edema and no pedal edema Neuro: COMMON NORMALS: patient oriented x3 Discharge Data Studies Completed and Pending Completed Studies During Hospitalization Category Date Time Status XR chest 1V portable [id number] Stat Exams 12/19/22 23:38 Completed Pending at discharge Category Date Time Status Blood Culture Stat Lab 12/19/22 00:31 Results CBC Auto Diff [Complete Blood Count w/Auto] AM LABS Lab 12/24/22 04:00 Ordered CMP [Comprehensive Metabolic Panel] AM LABS Lab 12/24/22 04:00 Ordered Radiology Impressions Chest X-Ray 12/19/22 23:38 IMPRESSION: 1. Emphysema. 2. Biapical scarring. 3. No significant interval change. Laboratory Results WBC 5.1 10^3/uL (4.0-10.0) 12/23/22 06:15 RBC 3.84 10^6/uL (4.1-5.3) L 12/23/22 06:15 Hgb 10.9 g/dL (11.5-15.3) L 12/23/22 06:15 Hct 37.4 % (37.0-47.0) 12/23/22 06:15 MCV 97.4 fl (81-99) 12/23/22 06:15 MCH 28.4 pg (28.0-34.0) 12/23/22 06:15 MCHC 29.1 g/dL (30.0-36.0) L D 12/23/22 06:15 RDW 15.1 % (12.1-15.1) 12/23/22 06:15 Plt Count 303 10^3/cmm (130-400) 12/23/22 06:15 MPV 9.6 fL (7.4-10.4) 12/23/22 06:15 Neut % (Auto) 82.1 % 12/23/22 06:15 Lymph % (Auto) 9.6 % 12/23/22 06:15 Yancey % (Auto) 7.7 % 12/23/22 06:15 Eos % (Auto) 0.0 % 12/23/22 06:15 Baso % (Auto) 0.0 % 12/23/22 06:15 Neut # (Auto) 4.18 10^3/uL (1.8-7.7) 12/23/22 06:15 Lymph # (Auto) 0.5 10^3/uL (0.8-4.8) L 12/23/22 06:15 Yancey # (Auto) 0.4 10^3/uL (0.2-0.9) 12/23/22 06:15 Eos # (Auto) 0.0 10^3/uL (0.0-0.8) 12/23/22 06:15 Baso # (Auto) 0.0 10^3/uL (0.0-0.1) 12/23/22 06:15 Nucleated RBC % (auto) 0 % 12/23/22 06:15 Nucleated RBCs # 0.0 /100WBC 12/23/22 06:15 Specimen Type Arterial 12/20/22 11:52 Sample Site Brachial, left 12/20/22 11:52 ABG pH 7.35 (7.35-7.45) 12/20/22 11:52 ABG pCO2 76.0 mmHg (35-45) H* 12/20/22 11:52 ABG pO2 72.0 mmHg (80.0-100.0) L 12/20/22 11:52 ABG HCO3 41.6 mmol/L (22-26) H 12/20/22 11:52 ABG Base Excess 13.1 mmol/L (-2.0-2.0) H 12/20/22 11:52 Nikolas Test Pos 12/20/22 11:52 Hematocrit 34.2 % (37-47) L 12/20/22 11:52 Hgb O2 Saturation 81.7 % (95-100) L 12/19/22 23:37 Carboxyhemoglobin 4.8 %THgb (0.4-20.1) 12/19/22 23:37 Methemoglobin 0.8 % (0.4-1.5) 12/19/22 23:37 Total Hemoglobin 11.3 g/dL (12-16) L 12/19/22 23:37 O2 Delivery Device Nc 12/20/22 11:52 O2 Liters/Min 2.0 % 12/20/22 11:52 FiO2 28.0 % 12/20/22 11:52 Packing Inspector ID [email or web address] 12/20/22 11:52 Sodium 135 mmol/L (136-145) L 12/23/22 06:15 Potassium 4.7 mmol/L (3.5-5.1) 12/23/22 06:15 Chloride 97 mmol/L (98-107) L 12/23/22 06:15 Carbon Dioxide 31 mmol/L (22-29) H 12/23/22 06:15 Anion Gap 11.7 (5-19) 12/23/22 06:15 BUN 21 mg/dL (8-23) 12/23/22 06:15 Creatinine 0.2 mg/dL (0.5-0.9) L 12/23/22 06:15 GFR Calculation Not Reportable 12/23/22 06:15 Glucose 117 mg/dL (65-115) H 12/23/22 06:15 POC Glucose 256 mg/dL (70-110) H 12/20/22 04:01 Calculated Osmolality 284 mOsm/kg (285-295) L 12/23/22 06:15 Lactic Acid 0.6 mmol/L (0.5-2.2) 12/19/22 23:43 Calcium 9.0 mg/dL (8.5-10.5) 12/23/22 06:15 Magnesium 2.0 mg/dL (1.7-2.3) 12/19/22 23:43 Total Bilirubin 0.2 mg/dL (0.15-1.2) 12/23/22 06:15 AST 12 U/L (0-32) 12/23/22 06:15 ALT 7 U/L (0-33) 12/23/22 06:15 Alkaline Phosphatase 40 U/L (35-105) 12/23/22 06:15 Troponin T Baseline 21 ng/L (0-10) H 12/19/22 23:43 Troponin T 120 Minute 20.34 ng/L (0-10) H 12/20/22 01:56 Delta Troponin T -0.66 ABS# (0-10) L 12/20/22 01:56 Troponin T Hi Sens 6Hr 22.06 ng/L (0-10) H 12/20/22 05:25 Troponin T Hi Sens 6Hr Delta 1.06 ng/L (0-12) 12/20/22 05:25 NT-Pro-B Natriuret Pep 554 pg/mL (0-125) H 12/19/22 23:43 Total Protein 5.9 g/dL (6.6-8.7) L 12/23/22 06:15 Albumin 3.2 g/dL (3.5-5.2) L 12/23/22 06:15 Globulin 2.7 g/dL (1.3-4.6) 12/23/22 06:15 SARS-CoV-2 Ag (Rapid) Negative (Negative) 12/19/22 22:43 Vitals Last Vital Signs Temp 98.1 F 12/23/22 09:59 Pulse 72 12/23/22 09:59 Resp 18 12/23/22 09:59 BP 118/60 12/23/22 09:59 Pulse Ox 95 12/23/22 09:59 O2 Del Method Nasal Cannula 12/23/22 09:59 O2 Flow Rate 2 12/23/22 09:59 FiO2 2 12/22/22 19:52 Discharge Plan Discharge Patient Disposition: Home Condition: Fair Prescriptions: New prednisone 20 mg tablet 40 mg PO DAILY 7 Days Qty: 14 0RF Continued ipratropium-albuterol 0.5 mg-3 mg(2.5 mg base)/3 mL solution for nebulization 3 ml INHALATION QID PRN (Reason: wheezing) 30 Days Qty: 360 3RF (DME) oxygen small bottle See Rx Instructions .Route .MEDSUPPLY Qty: 1 0RF Rx Instructions: switch condensor to small tank celecoxib 200 mg capsule 200 mg PO BID Qty: 180 1RF levocetirizine 5 mg tablet 5 mg PO DAILY Qty: 30 5RF metoprolol tartrate 25 mg tablet 25 mg PO BID Qty: 60 3RF albuterol sulfate [Ventolin HFA] 90 mcg/actuation HFA aerosol inhaler 1 puff INHALATION TID PRN (Reason: Shortness Of Breath) Qty: 18 3RF fluticasone propion-salmeterol [Advair Diskus] 100-50 mcg/dose blister with device 1 inh inhalation BID Qty: 60 3RF Spiriva with HandiHaler 18 mcg capsule, w/inhalation device 1 cap inhalation DAILY Qty: 1 3RF Rx Instructions: Inhale 1 puff by mouth once daily aspirin 81 mg Tablet,Chewable 81 mg PO DAILY Lumigan 0.01 % drops 1 drp ophthalmic (eye) QPM Rx Instructions: both eyes diltiazem HCl 30 mg Tablet 30 mg PO TID Qty: 90 0RF Discharge Orders: Discharge Order (Routine); Ordered 12/23/22 Ordered By: Hira Carrizales Referrals: Norman Lazo MD [Primary Care Provider] - 12/25/22 11:20 am Patient Instructions: COPD, Prednisone (By mouth), COPD Stoplight, Opioid Safety Discharge Attestations Time Spent in Discharge Care*: less than 30 min Status at Discharge: Cognitive status at discharge: cognitively intact, Behavioral status at discharge: cooperative, Quality Metrics Clinical Quality Measures [ No reported AMI, CVA or VTE this stay] Coding Level of Care Code Acute Code for Chg Fwd Diagnoses Acute on chronic respiratory failure with hypoxia and hypercapnia J96.21; J96.22 Acute exacerbation of chronic obstructive airways disease J44.1 Chest pain R07.9 Hyperkalemia E87.5
[2022-12-23 12:00] VITALS: BP 118/60; BP 142/64; PULSE 72; PULSE 76; RESP 16; RESP 18; TEMP 36.7; O2SAT 98
== END 2022-12-23 12:00 | disposition home or self-care (01) | DRG 190 ==
LOC: ER 23:32 → MEDSURG 12-20 04:43
PROVIDERS: Student in an Organized Health Care Education/Training Program; Admitting Provider Family Medicine; Emergency Provider Emergency Medicine; PCP Family Medicine; Visit Provider Internal Medicine
DX: J44.1 Chronic obstructive pulmonary disease with (acute) exacerbation (principal); J96.21 Acute and chronic respiratory failure with hypoxia; J96.22 Acute and chronic respiratory failure with hypercapnia; I48.0 Paroxysmal atrial fibrillation; J84.10 Pulmonary fibrosis, unspecified; Z79.51 Long term (current) use of inhaled steroids; Z79.82 Long term (current) use of aspirin; Z99.81 Dependence on supplemental oxygen; M81.0 Age-related osteoporosis without current pathological fracture; Z87.891 Personal history of nicotine dependence; E87.5 Hyperkalemia
CPT/HCPCS: 36415; 36416; 36600; 71045; 80053; 82803; 82805; 82962; 83605; 83735; 83880; 84484; 85025; 87040; 87426; 93005; 94640; 94660; 96372; C9113; G0378; J0612; J1100; J1650; J1815; J2920; J2930; J3490; J7626; J7644

== ENCOUNTER 2023-01-05 02:06 | Observation (INO) | payer MEDICARE, MEDICAID, SELFPAY ==
[2023-01-05] VITALS (26 sets, daily range): BP systolic 108–149; BP diastolic 61–80; PULSE 88–143; RESP 14–30; TEMP 36.2–36.8; O2SAT 91–99; BMI 14.6
--- NOTE | 2023-01-05 02:13 | ECG_ITS ---
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 Measurements Intervals [place] Rate: 104 P: 0 PA: 0 QRS: 94 QRSD: 88 T: 78 QT: 308 QTc: 407 Interpretive Statements ATRIAL FIBRILLATION WITH RAPID VENTRICULAR RESPONSE BORDERLINE RIGHT AXIS DEVIATION [QRS AXIS > 90] ABNORMAL RHYTHM ECG Compared to ECG 12/20/2022 05:57:25 Sinus rhythm no longer present Electronically Signed On 01-06-2023 1:13:29 CDT by Rosamaria Blum M.D. [email or web address]/[id number] f
--- NOTE | 2023-01-05 02:16 | XRR_ITS ---
PROCEDURE INFORMATION: Exam: XR Chest Exam date and time: 01/05/2023 2:39 AM Age: 72 years old Clinical indication: Shortness of breath; Prior surgery; Surgery date: 6+ months; Surgery type: Kyphoplasty; Patient HX: Severe SOB. History of copd and pulmonary fibrosis. TECHNIQUE: Imaging protocol: Radiologic exam of the chest. Views: 1 view. COMPARISON: CR (CHEST, ) 12/19/2022 11:52 PM FINDINGS: Lungs: COPD, interstitial disease, and bilateral upper lobe scarring. Pleural spaces: Biapical pleural thickening. Heart/Mediastinum: Normal configuration of the heart. Vasculature: Calcification of the thoracic aorta. Bones/joints: Osteopenia, multiple compression fractures and vertebral plasty, and degenerative change. XR/XR chest 1V portable [id number] IMPRESSION: COPD, interstitial disease, and bilateral upper lobe scarring.
--- NOTE | 2023-01-05 02:20 | ED_ITS ---
HPI - SOB/Dyspnea General: Chief Complaint: Shortness of Breath/Dyspnea Stated Complaint: SOB Time Seen by Provider: 01/05/23 02:08 Source: patient and EMS Mode of arrival: EMS Limitations: no limitations History of Present Illness: HPI Narrative: 72-year-old female has extensive history of COPD she is on 2 L of oxygen at baseline. She states that she woke up tonight with increasing shortness of breath when EMS arrived she was in the 80s she is currently on 6 L satting 93% she does have wheezing along with tachypnea and accessory muscle use. She denies any fever she denies any new cough states she does have chest pressure he states that is typical when she has a COPD exacerbation she did receive a breathing treatment in route by EMS Associated symptoms: Reports chest pain; Deny abdominal pain, fever(s), nausea or vomiting Review of Systems Const: Denies: fever(s) or chills ENMT: Denies: throat pain or dental pain Card: Reports: chest pain Resp: Reports: dyspnea GI: Denies: abdominal pain, nausea, vomiting or diarrhea : Denies: dysuria Musc: Denies: neck pain or back pain Skin/Breast: Denies: rash Neuro: Denies: headache(s) PFSH ED PFSH: Medical History Acute exacerbation of chronic obstructive airways disease Acute on chronic respiratory failure with hypoxia and hypercapnia Acute on chronic respiratory failure with hypoxia and hypercapnia Atrial fibrillation transient, during acute COPD exacerbation in 2019 Back pain Chest pain Chronic obstructive pulmonary emphysema Chronic respiratory failure with hypoxia and hypercapnia COPD (chronic obstructive pulmonary disease) History of echocardiogram 08/2019 EF 65%, grade I/IV diastolic dysfunction, PAP within normal limits History of PFTs 10/2019 severe airflow obstruction, FEV1/FVC of 33%, FEV1 0.57 L 29% predicted, FVC 1.76 L 71% predicted, TLC 107%, RV 163%, reduced DLCO at 25% Hyperkalemia Mass of upper lobe of left lung cavitary appearance, never biopsied due to risk of complication and non- surgical candidate, has been stable on imaging On home oxygen therapy 2-3 L BNC at baseline Osteoarthritis Osteoporosis Paroxysmal A-fib Personal history of nicotine dependence quit in 2019, but still with 2nd hand exposure Pseudomonas aeruginosa colonization Pulmonary fibrosis Pulmonary nodule left lower lobe Seasonal allergies Uses bilevel positive airway pressure (BPAP) ventilation at home trilogy, via [facility] Surgical History History of kyphoplasty (2015) L1, L2, L3, L5 performed by Dr. Roman Marquez Family History Mother CAD (coronary artery disease) Social History Smoking and tobacco status: former smoker Quit status (tobacco): has quit using tobacco Year quit tobacco: 2019 - 1PPD x 50 Years Second hand smoke exposure: Yes Alcohol intake: never Substance/Drug Use: never Lives independently: Yes Household members: none Marital status: Current occupational status: retired Do you think of yourself as: Straight/Heterosexual Current gender identity: Female Physical Exam Const: COMMON NORMALS: patient oriented x3 GENERAL APPEARANCE: in distress HENMT: COMMON NORMALS: normocephalic and atraumatic HEAD & SCALP: normocephalic and atraumatic Neck/C-Spine: COMMON NORMALS: full ROM and supple Chest: COMMONS NORMALS: normal inspection of the chest and normal palpation of entire chest wall Resp: EFFORT & INSPECTION: Yes tachypneic, Yes respiratory distress and Yes uses accessory muscles AUSCULTATION: wheezes Cardio: COMMON NORMALS: regular rhythm and No murmurs present (Cardio) RATE: tachycardic RHYTHM: regular rhythm GI: COMMON NORMALS: Normal to inspection, nondistended, normoactive bowel sounds present, Soft to palpation, non-tender and no masses PALPATION: Yes Soft to palpation Extremity: COMMON NORMALS: normal to inspection and full ROM Neuro: COMMON NORMALS: patient oriented x3, moves all extremities and no focal motor deficits Psych: COMMON NORMALS: mental status grossly normal, Normal thought process present and cooperative THOUGHT PROCESS: Normal thought process present Skin: COMMON NORMALS: no rashes or lesions noted and no wounds GENERAL SKIN EXAM: no rashes or lesions noted Course Vital Signs: Vital signs: Vital Signs Temperature 97.1 F L 01/05/23 02:10 Pulse Rate 88 01/05/23 03:50 Respiratory Rate 21 H 01/05/23 03:50 Blood Pressure 125/69 01/05/23 03:50 Pulse Oximetry 92 01/05/23 03:50 Oxygen Delivery Me thod Nasal Cannula 01/05/23 02:10 Oxygen Flow Rate 6 01/05/23 02:10 Fraction of Inspir ed Oxygen 30 01/05/23 03:02 MDM - SOB/Dyspnea Medical Decision Making Patient presents here with COPD exacerbation with acute on chronic respiratory f ailure with hypercapnia. She is doing better on BiPAP here she has no signs pneumonia I spoke to the hospitalist will admit at this time. Medical Records I reviewed the patient's medical records. Lab Data I reviewed the patient's lab results. 01/05/23 02:25 01/05/23 02:25 Labs/Radiology: Laboratory Results WBC 12.4 10^3/uL (4.0-10.0) H 01/05/23 02:25 RBC 4.07 10^6/uL (4.1-5.3) L 01/05/23 02:25 Hgb 11.6 g/dL (11.5-15.3) 01/05/23 02:25 Hct 40.0 % (37.0-47.0) 01/05/23 02:25 MCV 98.3 fl (81-99) 01/05/23 02:25 MCH 28.5 pg (28.0-34.0) 01/05/23 02:25 MCHC 29.0 g/dL (30.0-36.0) L 01/05/23 02:25 RDW 15.5 % (12.1-15.1) H 01/05/23 02:25 Plt Count 214 10^3/cmm (130-400) 01/05/23 02:25 MPV 9.3 fL (7.4-10.4) 01/05/23 02:25 Neut % (Auto) 65.0 % 01/05/23 02:25 Lymph % (Auto) 20.5 % 01/05/23 02:25 [place] % (Auto) 12.7 % 01/05/23 02:25 Eos % (Auto) 1.2 % 01/05/23 02:25 Baso % (Auto) 0.3 % 01/05/23 02:25 Neut # (Auto) 8.04 10^3/uL (1.8-7.7) H 01/05/23 02:25 Lymph # (Auto) 2.5 10^3/uL (0.8-4.8) 01/05/23 02:25 [place] # (Auto) 1.6 10^3/uL (0.2-0.9) H 01/05/23 02:25 Eos # (Auto) 0.2 10^3/uL (0.0-0.8) 01/05/23 02:25 Baso # (Auto) 0.0 10^3/uL (0.0-0.1) 01/05/23 02:25 Nucleated RBC % (auto) 0 % 01/05/23 02:25 Nucleated RBCs # 0.0 /100WBC 01/05/23 02:25 Specimen Type Arterial 01/05/23 02:27 Sample Site Radial, right 01/05/23 02:27 ABG pH 7.24 (7.35-7.45) L 01/05/23 02:27 ABG pCO2 94.1 mmHg (35-45) H* 01/05/23 02:27 ABG pO2 83.7 mmHg (80.0-100.0) 01/05/23 02:27 ABG HCO3 40.4 mmol/L (22-26) H 01/05/23 02:27 ABG Base Excess 10.0 mmol/L (-2.0-2.0) H 01/05/23 02:27 Nikolas Test Pos 01/05/23 02:27 Hematocrit 34.2 % (37-47) L 01/05/23 02:27 O2 Delivery Device Nc 01/05/23 02:27 O2 Liters/Min 5.0 % 01/05/23 02:27 FiO2 40.0 % 01/05/23 02:27 Instructional Technology Director ID [email or web address] 01/05/23 02:27 Sodium 140 mmol/L (136-145) 01/05/23 02:25 Potassium 4.7 mmol/L (3.5-5.1) 01/05/23 02:25 Chloride 95 mmol/L (98-107) L 01/05/23 02:25 Carbon Dioxide 38 mmol/L (22-29) H 01/05/23 02:25 Anion Gap 11.7 (5-19) 01/05/23 02:25 BUN 13 mg/dL (8-23) 01/05/23 02:25 Creatinine 0.4 mg/dL (0.5-0.9) L 01/05/23 02:25 GFR Calculation Not Reportable 01/05/23 02:25 Glucose 117 mg/dL (65-115) H 01/05/23 02:25 Calculated Osmolality 291 mOsm/kg (285-295) 01/05/23 02:25 Calcium 9.8 mg/dL (8.5-10.5) 01/05/23 02:25 Total Bilirubin 0.3 mg/dL (0.15-1.2) 01/05/23 02:25 AST 14 U/L (0-32) 01/05/23 02:25 ALT 9 U/L (0-33) 01/05/23 02:25 Alkaline Phosphatase 50 U/L (35-105) 01/05/23 02:25 Troponin T Baseline 25 ng/L (0-10) H 01/05/23 02:25 NT-Pro-B Natriuret Pep 904 pg/mL (0-125) H 01/05/23 02:25 Total Protein 6.6 g/dL (6.6-8.7) 01/05/23 02:25 Albumin 3.5 g/dL (3.5-5.2) 01/05/23 02:25 Globulin 3.1 g/dL (1.3-4.6) 01/05/23 02:25 EKG Data EKG 1: I personally reviewed and interpreted this EKG as follows: EKG Interpretation Date: 01/05/23 EKG interpretation time: 02:13 Interpretation: sinus tach hr [address] or t wave abnormalities qrs 88 qtc 369 Critical Care Time Critical Care Time: Critical Care Time: Yes Total Critical Care Time: 40 Attestation: The high probability of a clinically significant, sudden or life threatening deterioration of the patient's resp system(s) required my full and direct attention, intervention and personal management. The critical care time is as shown. This time is in addition to time spent performing any reported procedures but includes the following: [x] Data and vital sign review and interpretation [x] Patient assessment, examination and intervention [x] Documentation [x] Medication orders and management Discharge Plan Discharge Patient Disposition: Admitted As Inpatient Admit Provider: Cecy Lynne Clinical Impression: Acute exacerbation of chronic obstructive airways disease, Acute and chronic respiratory failure with hypercapnia Condition: Stable Coding Level of Care Code ED Roofer Helper [employer] for Jihan Jimenes
[2023-01-05] MEDS: dexamethasone 10 mg/mL INJ IVP (02:34)
[2023-01-05 02:37] LABS: ABG PH Result 7.24 (7.35-7.45); Arterial Blood Gas Hematocrit 34.2 % (37-47); Blood Gas Allen Test Pos; Blood Gas Sample Site Radial, right; Blood Gas Sample Type Arterial; HCO3 ABG 40.4 mmol/L (22-26); Oxygen Device NC; PO2 ABG 83.7 mmHg (80.0-100.0)
[2023-01-05 02:39] LABS: ABG PCO2 94.1 mmHg (35-45)
[2023-01-05 02:41] LABS: Basophils % 0.3 %; Eosinophils # 0.2 10^3/uL (0.0-0.8); Eosinophils % 1.2 %; Hemoglobin 11.6 g/dL (11.5-15.3); Lymphocytes # 2.5 10^3/uL (0.8-4.8); Lymphocytes % 20.5 %; Mean Corpuscular Hemoglobin 28.5 pg (28.0-34.0); Mean Corpuscular Volume 98.3 fl (81-99); Mean Platelet Volume 9.3 fL (7.4-10.4); Monocytes # 1.6 10^3/uL (0.2-0.9); Monocytes % 12.7 %; Neutrophils # 8.04 10^3/uL (1.8-7.7); Nucleated Red Blood Cells % 0 %; Platelet Count 214 10^3/cmm (130-400); Red Blood Count 4.07 10^6/uL (4.1-5.3); Red Cell Distribution Width 15.5 % (12.1-15.1); White Blood Count 12.4 10^3/uL (4.0-10.0)
[2023-01-05 03:02] LABS: Troponin(5th) Baseline 25 ng/L (0-10)
[2023-01-05 03:10] LABS: Alanine Aminotransferase 9 U/L (0-33); Albumin Level 3.5 g/dL (3.5-5.2); Alkaline Phosphatase 50 U/L (35-105); Aspartate Amino Transferase 14 U/L (0-32); Blood Urea Nitrogen 13 mg/dL (8-23); Calcium 9.8 mg/dL (8.5-10.5); Carbon Dioxide 38 mmol/L (22-29); Chloride 95 mmol/L (98-107); Globulin 3.1 g/dL (1.3-4.6); Glucose 117 mg/dL (65-115); NT Pro B Type Natriuretic Pept 904 pg/mL (0-125); Osmolality Calculated 291 mOsm/kg (285-295); Sodium 140 mmol/L (136-145); Total Bilirubin 0.3 mg/dL (0.15-1.2); Total Protein 6.6 g/dL (6.6-8.7)
[2023-01-05 03:11] LABS: Anion Gap 11.7 (5-19); Potassium 4.7 mmol/L (3.5-5.1)
--- NOTE | 2023-01-05 04:15 | ECG_ITS ---
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 Measurements Intervals [place] Rate: 96 P: 0 DE: 0 QRS: 91 QRSD: 90 T: 83 QT: 337 QTc: 426 Interpretive Statements Sinus rhythm with frequent supraventricular ectopics BORDERLINE RIGHT AXIS DEVIATION [QRS AXIS > 90] ABNORMAL RHYTHM ECG Compared to ECG 01/05/2023 02:13:59 No significant changes Electronically Signed On 01-06-2023 22:27:55 CDT by Rosamaria Blum M.D. [id number]
--- NOTE | 2023-01-05 04:17 | PM.HP ---
Providers/Chief Complaint Admitting Physician: Cecy Lynne MD Primary Care Provider: Norman Lazo MD Chief Complaint: SOB History of Present Illness 72 year old female with past medical history of COPD Gold class D, with chronic hypoxic respiratory failure, paroxysmal atrial fibrillation, pulmonary fibrosis, and history of Pseudomonas colonization came in with chief complaint of worsening shortness of breath that pretty much started after she finished taking her prednisone at home. She was recently discharged from the hospital on 23 December. She states she has a feeling of air hunger. Denies a cough or production of sputum, fever, nausea, vomiting, diarrhea, chest pain. She states she feels fine and believes she just needs an antibiotic and she can go home. She is requiring 4 L of oxygen here at x5 L. Her baseline O2 is 2 L. In the past patient used to be on azithromycin Wednesday for gold class D COPD however that was stopped after 2 years to see how the patient would do. She last saw pulmonology in July 2022. BNP 904 today. History of diastolic dysfunction on echo. Denies any lower extremity edema at this time. Medications/Allergies Home Medications Medication Instructions Recorded Confirmed Last Taken Type aspirin 81 mg chewable tablet 81 mg PO DAILY 08/20/19 12/20/22 07/24/22 History ipratropium 0.5 mg-albuterol 3 mg 3 ml inhalation QID PRN wheezing 02/26/21 12/20/22 07/24/22 Rx (2.5 mg base)/3 mL nebulization 30 days #360 mL soln celecoxib 200 mg capsule 200 mg PO BID #180 caps 03/03/22 12/20/22 11/22/22 Rx oxygen #1 ea 03/24/22 12/20/22 07/24/22 Rx levocetirizine 5 mg tablet 5 mg PO DAILY #30 tabs 06/15/22 12/20/22 11/22/22 Rx metoprolol tartrate 25 mg tablet 25 mg PO BID #60 tabs 06/18/22 12/20/22 11/22/22 Rx albuterol sulfate 90 mcg/actuation 1 puff inhalation TID PRN 09/14/22 12/20/22 Unknown Rx aerosol inhaler (Ventolin HFA) Shortness Of Breath #18 grams fluticasone 100 mcg-salmeterol 50 1 inh inhalation BID #60 ea 09/14/22 12/20/22 11/22/22 Rx mcg/dose blistr powdr for inhalation (Advair Diskus) tiotropium bromide 18 mcg capsule 1 cap inhalation DAILY #1 inh 10/16/22 12/20/22 11/22/22 Rx with inhalation device (Spiriva with HandiHaler) bimatoprost 0.01 % eye drops 1 drp ophthalmic (eye) QPM 10/20/22 12/20/22 11/21/22 History (Neisha) diltiazem HCl 30 mg tablet 30 mg PO TID #90 tabs 10/22/22 12/20/22 11/22/22 Rx Allergies Allergy/AdvReac Type Severity Reaction Status Date / Time No Known Allergies Allergy Verified 01/05/23 02:09 PFSH Acute PFSH: Medical History Acute exacerbation of chronic obstructive airways disease Acute on chronic respiratory failure with hypoxia and hypercapnia Acute on chronic respiratory failure with hypoxia and hypercapnia Atrial fibrillation transient, during acute COPD exacerbation in 2019 Back pain Chest pain Chronic obstructive pulmonary emphysema Chronic respiratory failure with hypoxia and hypercapnia COPD (chronic obstructive pulmonary disease) History of echocardiogram 08/2019 EF 65%, grade I/IV diastolic dysfunction, PAP within normal limits History of PFTs 10/2019 severe airflow obstruction, FEV1/FVC of 33%, FEV1 0.57 L 29% predicted, FVC 1.76 L 71% predicted, TLC 107%, RV 163%, reduced DLCO at 25% Hyperkalemia Mass of upper lobe of left lung cavitary appearance, never biopsied due to risk of complication and non-surgical candidate, has been stable on imaging On home oxygen therapy 2-3 L [facility] at baseline Osteoarthritis Osteoporosis Paroxysmal A-fib Personal history of nicotine dependence quit in 2018, but still with 2nd hand exposure Pseudomonas aeruginosa colonization Pulmonary fibrosis Pulmonary nodule left lower lobe Seasonal allergies Uses bilevel positive airway pressure (BPAP) ventilation at home trilogy, via [facility] Surgical History History of kyphoplasty (2014) L1, L2, L3, L5 performed by Dr. Roman Marquez Family History Mother CAD (coronary artery disease) Social History Smoking and tobacco status: former smoker Quit status (tobacco): has quit using tobacco Year quit tobacco: 2019 - 1PPD x 50 Years Second hand smoke exposure: Yes Alcohol intake: never Substance/Drug Use: never Lives independently: Yes Household members: none Marital status: Current occupational status: retired Do you think of yourself as: Straight/Heterosexual Current gender identity: Female Vitals/I&O/Wt Last Vital Signs Temp 97.1 F L 01/05/23 02:10 Pulse 88 01/05/23 03:50 Resp 21 H 01/05/23 03:50 BP 125/69 01/05/23 03:50 Pulse Ox 92 01/05/23 03:50 O2 Del Method Nasal Cannula 01/05/23 02:10 O2 Flow Rate 6 01/05/23 02:10 FiO2 30 01/05/23 03:02 Weight last 48 hrs Weight 36.287 kg Physical Exam Narrative: General: Alert oriented x3, patient seen sitting up in bed appearing comfortable at this time. No conversational dyspnea, no acute respiratory distress. On 5 L nasal cannula. Cachectic appearing frail female. HEENT: Normocephalic, atraumatic, EOMI, Cardio: Regular rate rhythm, normal S1-S2 Respiratory: Expiratory wheezes throughout lung marquis, diminished at bases. No gross rhonchi appreciated at this time. GI: Abdomen soft, nontender, bowel sounds + Extremities: No edema present. Data 01/05/23 02:25 01/05/23 02:25 A&P Assessment and plan (1) Acute exacerbation of chronic obstructive airways disease: (2) Acute and chronic respiratory failure with hypercapnia: (3) Pseudomonas aeruginosa colonization: (4) COPD (chronic obstructive pulmonary disease): (5) Personal history of nicotine dependence: (6) Body mass index less than 16.5: Plan #COPD exacerbation, end stage #Gold class D COPD #Paroxysmal atrial fibrillation, currently in sinus rhythm #Pulmonary fibrosis #acute on chronic hypoxic hypercarbic respiratory failure ? DuoNeb every 6 hours, budesonide twice daily inhaled ? Check sputum Gram stain culture, procalcitonin. X-ray does not show evidence of pneumonia at this time ? Restart azithromycin. I will prescribe for 5 days daily for now and then transition to Wednesday thereafter ? Start Roflumilast daily ? Placed on prednisone 40 mg orally twice daily. Patient will require prolonged prednisone taper and to remain on thereafter prednisone 10 mg daily at discharge -Patient to receive pulmonology as an outpatient for further management ? Continue aspirin, diltiazem, levocetirizine, Lumigan ? Continue metoprolol tartrate 25 twice daily ? Continue above home medications once med rec has been completed today. ? Home oxygen evaluation at discharge ? Admit to observation ? Continue patient on BiPAP at this time. pH 7.24/. Repeat blood gas in AM. - Patient is requesting to go home as soon as possible. Full Code DVT PPX: Heparin subc BID Daughter at bedside as well. All questions answered. Attestations Medical Necessity Statement*: observation admission. expect < 48 hour stay Coding Level of Care Code G0425 (30 min) TH Encounter Time (min): 45 Patient seen via Telehealth in the acute care setting (hospital or ED location) by agreement and consent of patient or patient new accounts banking representative. Telehealth technology used during the visit includes video and audio. This patient encounter is appropriate and reasonable under the circumstances given the patient?s particular presentation at this time. The patient has been advised of the potential risks and limitations of this mode of treatment (including but not limited to the absence of in-person examination at this time) and has agreed to be treated by an off-site physician for this visit. If deemed clinically necessary from this telehealth visit, or if condition or consent for telehealth visit changes, an in-person visit will be arranged. For this encounter, total time for the origination of telehealth care on this date is as shown. Other Coding Information Focused coding review requested Diagnoses Acute exacerbation of chronic obstructive airways disease J44.1 Acute and chronic respiratory failure with hypercapnia J96.22 Pseudomonas aeruginosa colonization Z22.39 COPD (chronic obstructive pulmonary disease) J44.9 Personal history of nicotine dependence Z87.891 Body mass index less than 16.5 Z68.1
[2023-01-05 04:50] LABS: Procalcitonin 0.03 ng/mL (0-0.5)
[2023-01-05] MEDS: heparin 5,000 unit/mL INJ 1 mL 5000 UNIT SUBCUT ×2 (04:53→16:53)
[2023-01-05 05:15] LABS: Troponin 5 2HR 22.18 ng/L (0-10)
[2023-01-05 05:17] LABS: Troponin 5 2HR Delta -2.82 ABS# (0-10)
[2023-01-05] MEDS: roflumilast 500 mcg Tablet PO ×2 (05:21→08:45)
[2023-01-05] MEDS: budesonide 0.5 mg/2 mL Neb INHALATION ×2 (08:11→19:47)
[2023-01-05] MEDS: ipratropium-albuterol 3 mL Neb INHALATION ×3 (08:11→19:47)
--- NOTE | 2023-01-05 08:15 | ECG_ITS ---
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 Measurements Intervals [place] Rate: 99 P: 84 OR: 139 QRS: 87 QRSD: 86 T: 81 QT: 322 QTc: 415 Interpretive Statements SINUS RHYTHM Compared to ECG 01/05/2023 04:15:10 Atrial fibrillation no longer present Electronically Signed On 01-06-2023 22:28:18 CDT by Rosamaria Blum M.D. [id number]
[2023-01-05] MEDS: predniSONE 20 mg Tablet 40 MG PO (08:44)
[2023-01-05] MEDS: azithromycin 250 mg Tablet 500 MG PO (08:46)
[2023-01-05 08:55] LABS: Troponin 5 6HR 19.21 ng/L (0-10)
[2023-01-05 08:57] LABS: Troponin 5 6HR Delta -5.79 ng/L (0-12)
--- NOTE | 2023-01-05 14:39 | PM.PN ---
Subjective Subjective: Patient was seen this morning, she continues to complain of shortness of breath, she is on BiPAP, but she does feel better, she is following all commands, no fevers, no chills, no nausea, no vomiting, Vitals/I&O/Wt Last Vital Signs Temp 97.7 F 01/05/23 11:59 Pulse 108 H 01/05/23 13:45 Resp 16 01/05/23 13:15 BP 142/76 01/05/23 11:59 Pulse Ox 98 01/05/23 13:16 O2 Del Method BiPAP 01/05/23 13:15 O2 Flow Rate 3 01/05/23 09:00 FiO2 40 01/05/23 13:16 01/04/23 01/05/23 01/05/23 22:59 06:59 14:59 Intake Total 120 / 120 Balance 120 / 120 Weight last 48 hrs Weight 36.287 kg Physical Exam Const: COMMON NORMALS: no acute distress and patient oriented x3 Resp: COMMON NORMALS: normal respiratory effort, No retractions and No use of accessory muscles AUSCULTATION: diminished lung sounds diffuse Cardio: COMMON NORMALS: regular rate, regular rhythm, S1 normal heart sound present and S2 normal heart sound present RATE: regular rate RHYTHM: regular rhythm HEART SOUNDS: S1 normal heart sound present and S2 normal heart sound present GI: COMMON NORMALS: Normal to inspection, nondistended, normoactive bowel sounds present and non-tender Extremity: COMMON NORMALS: no pedal edema Neuro: COMMON NORMALS: patient oriented x3 Psych: COMMON NORMALS: mental status grossly normal Data 01/05/23 02:25 01/05/23 02:25 A&P Assessment and plan (1) Acute exacerbation of chronic obstructive airways disease: (2) Acute and chronic respiratory failure with hypercapnia: (3) Pseudomonas aeruginosa colonization: (4) COPD (chronic obstructive pulmonary disease): (5) Personal history of nicotine dependence: (6) Body mass index less than 16.5: Plan #COPD exacerbation, end stage #Gold class D COPD #Paroxysmal atrial fibrillation, currently in sinus rhythm #Pulmonary fibrosis #acute on chronic hypoxic hypercarbic respiratory failure ? DuoNeb every 6 hours, budesonide twice daily inhaled ? Check sputum Gram stain culture, procalcitonin. X-ray does not show evidence of pneumonia at this time ? Restart azithromycin. I will prescribe for 5 days daily for now and then transition to Wednesday thereafter ? Start Roflumilast daily ? Decadron 6 mg IV push every 24 hours -Patient to receive pulmonology as an outpatient for further management ? Continue aspirin, diltiazem, levocetirizine, Lumigan ? Continue metoprolol tartrate 25 twice daily ? Continue above home medications once med rec has been completed today. ? Home oxygen evaluation at discharge ? Admit to observation ? Continue patient on BiPAP at this time. - Patient is requesting to go home as soon as possible. Full Code DVT PPX: Heparin subc BID Daughter at bedside as well. All questions answered. Plan for today continue steroids, antibiotics, monitor respiratory status, up out of bed into a chair Attestations Medical Necessity Statement*: Patient requires hospitalization for acute respiratory failure Diagnoses Acute exacerbation of chronic obstructive airways disease J44.1 Acute and chronic respiratory failure with hypercapnia J96.22 Pseudomonas aeruginosa colonization Z22.39 COPD (chronic obstructive pulmonary disease) J44.9 Personal history of nicotine dependence Z87.891 Body mass index less than 16.5 Z68.1
--- NOTE | 2023-01-05 17:50 | ECG_ITS ---
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 Measurements Intervals [place] Rate: 123 P: 87 [place]: 136 QRS: 91 QRSD: 85 T: 87 QT: 280 QTc: 402 Interpretive Statements SINUS TACHYCARDIA BORDERLINE RIGHT AXIS DEVIATION [QRS AXIS > 90] ABNORMAL RHYTHM ECG Compared to ECG 01/05/2023 09:40:11 Sinus rhythm no longer present Electronically Signed On 01-06-2023 22:33:38 CDT by Rosamaria Blum M.D. [id number]
[2023-01-06] VITALS (18 sets, daily range): BP systolic 111–127; BP diastolic 50–74; PULSE 66–118; RESP 14–24; TEMP 36.5–36.8; O2SAT 90–98
[2023-01-06] MEDS: ipratropium-albuterol 3 mL Neb INHALATION ×4 (02:14→20:28)
[2023-01-06] MEDS: heparin 5,000 unit/mL INJ 1 mL 5000 UNIT SUBCUT ×2 (04:56→16:15)
[2023-01-06 05:04] LABS: Basophils % 0.1 %; Hematocrit 34.3 % (37.0-47.0); Hemoglobin 10.1 g/dL (11.5-15.3); Lymphocytes # 0.5 10^3/uL (0.8-4.8); Lymphocytes % 5.9 %; Mean Corpuscular HGB Conc 29.4 g/dL (30.0-36.0); Mean Corpuscular Hemoglobin 28.8 pg (28.0-34.0); Mean Corpuscular Volume 97.7 fl (81-99); Mean Platelet Volume 9.5 fL (7.4-10.4); Monocytes # 0.9 10^3/uL (0.2-0.9); Monocytes % 10.3 %; Neutrophils # 7.22 10^3/uL (1.8-7.7); Neutrophils % 83.2 %; Nucleated Red Blood Cells % 0 %; Platelet Count 190 10^3/cmm (130-400); Red Blood Count 3.51 10^6/uL (4.1-5.3); Red Cell Distribution Width 15.5 % (12.1-15.1); White Blood Count 8.7 10^3/uL (4.0-10.0)
[2023-01-06] MEDS: dexamethasone 10 mg/mL INJ 6 MG IVP (05:15)
[2023-01-06 05:24] LABS: Anion Gap 6.7 (5-19); Blood Urea Nitrogen 25 mg/dL (8-23); Calcium 9.2 mg/dL (8.5-10.5); Carbon Dioxide 39 mmol/L (22-29); Chloride 99 mmol/L (98-107); Glucose 133 mg/dL (65-115); Osmolality Calculated 296 mOsm/kg (285-295); Potassium 4.7 mmol/L (3.5-5.1); Sodium 140 mmol/L (136-145)
[2023-01-06] MEDS: budesonide 0.5 mg/2 mL Neb INHALATION ×2 (08:09→20:28)
[2023-01-06] MEDS: roflumilast 500 mcg Tablet PO (08:18)
[2023-01-06] MEDS: azithromycin 250 mg Tablet 500 MG PO (08:18)
[2023-01-06] MEDS: metoprolol tartrate 25 mg Tablet PO ×2 (09:53→20:03)
[2023-01-06] MEDS: dilTIAZem 30 mg Tablet PO ×3 (09:53→20:03)
--- NOTE | 2023-01-06 10:38 | PC.CHAP ---
Pastoral Care Encounter/Spiritual Assessment Type of Contact [] Declined novelty dipper visit [] Patient/Family/Request visit [] Outpatient visit [] Follow-up visit [] Physician referral [] Code/Alert [x] Routine visit [] Staff referral [] Actively dying [] Patient sleeping [x] Family support [] [] Out of room [] Palliative care [] [] Receiving care in room [] Pre-surgical visit [] Trauma [] Long length of stay [] ICU visit [] Other: Relational/Emotional Strength [x] Patient feels connected with others/family/visitors/staff [] Distress [] Loneliness/isolation [] Abandonment Spirituality of Patient x[] Person of Valerie [] Attends Presybeterian of their Valerie [x] Believes in Prayer [] Reads Bible or Mosque materials [] There are Spiritual issues to be addressed Surgical Garment Fitter Interventions x[] Prayer [x] Active listening [x Non-anxious presence [] Spiritual/emotional support [] Crisis/trauma care [] Spiritual counseling [] Bereavement support [] Provided bereavement packet [] Provided Bible/devotional materials [] Provided toy/stuffed animal, coloring book to patient or family member [] Provided Communion [] Anointing/[place] [] Salvation [x] Completed spiritual assessment [] Other: Impact on Illness or Injury [] Angry [] Fearful [] Anxious [] Often cries [] Exhaustion [] Unable to work [] Unable to attend faith [] Unable to walk/stand [] Unable to read [] Unable to drive [] Unable to eat/drink [] Unable to sleep [] Unable to be with family [] Patient intubated [] Other: Summary Time spent with patient 10 min
--- NOTE | 2023-01-06 13:34 | PM.PN ---
Subjective Subjective: Patient was seen this morning, she continues to have tachycardia throughout the evening and into this morning, she does feel jittery she tells me, continues to feel short of breath, no chest pain, does have palpitations, no nausea, vomiting, telemetry monitoring shows sinus tachycardia, she does take metoprolol 25 twice daily with diltiazem 30 3 times daily which has not been resumed we will resume it here, Vitals/I&O/Wt Last Vital Signs Temp 97.7 F 01/06/23 12:00 Pulse 88 01/06/23 13:11 Resp 16 01/06/23 13:08 BP 115/64 01/06/23 12:00 Pulse Ox 93 01/06/23 13:08 O2 Del Method Nasal Cannula 01/06/23 13:08 O2 Flow Rate 2 01/06/23 13:08 FiO2 40 01/06/23 03:37 01/05/23 01/06/23 01/06/23 22:59 06:59 14:59 Intake Total 460 / 460 480 / 480 Balance 460 / 460 480 / 480 Weight last 48 hrs Weight 36.287 kg Physical Exam Const: COMMON NORMALS: no acute distress and patient oriented x3 Resp: COMMON NORMALS: normal respiratory effort, No retractions, No use of accessory muscles and clear to auscultation bilaterally AUSCULTATION: clear to auscultation bilaterally Cardio: COMMON NORMALS: regular rhythm, S1 normal heart sound present and S2 normal heart sound present RATE: tachycardic RHYTHM: regular rhythm HEART SOUNDS: S1 normal heart sound present and S2 normal heart sound present GI: COMMON NORMALS: Normal to inspection, nondistended, normoactive bowel sounds present and non-tender Extremity: COMMON NORMALS: no pedal edema Neuro: COMMON NORMALS: patient oriented x3 Psych: COMMON NORMALS: mental status grossly normal Data 01/06/23 04:38 01/06/23 04:38 A&P Assessment and plan (1) Acute exacerbation of chronic obstructive airways disease: (2) Acute and chronic respiratory failure with hypercapnia: (3) Pseudomonas aeruginosa colonization: (4) COPD (chronic obstructive pulmonary disease): (5) Personal history of nicotine dependence: (6) Body mass index less than 16.5: (7) Sinus tachycardia: Plan #COPD exacerbation, end stage #Gold class D COPD #Paroxysmal atrial fibrillation, currently in sinus rhythm #Pulmonary fibrosis #acute on chronic hypoxic hypercarbic respiratory failure #Sinus tachycardia, likely beta-kyrie withdrawal, diltiazem withdrawal ? DuoNeb every 6 hours, budesonide twice daily inhaled ? Check sputum Gram stain culture, procalcitonin. X-ray does not show evidence of pneumonia at this time ? Restart azithromycin. I will prescribe for 5 days daily for now and then transition to Wednesday thereafter ? Start Roflumilast daily ? Decadron 6 mg IV push every 24 hours -Patient to receive pulmonology as an outpatient for further management ? Continue aspirin, levocetirizine, Lumigan ? Resume her home metoprolol tartrate 25 twice daily, and diltiazem ? Continue above home medications once med rec has been completed today. ? Home oxygen evaluation at discharge ? Admit to observation ? Continue patient on BiPAP at this time. - Patient is requesting to go home as soon as possible. Full Code DVT PPX: Heparin subc BID Daughter at bedside as well. All questions answered. Plan for today resume her home diltiazem, Toprol monitor heart rate, continue steroids, up out of bed,, to patient's family at bedside, spoke to patient's daughter, spoke to nursing staff Attestations Medical Necessity Statement*: Patient requires hospitalization for for COPD exacerbation Diagnoses Acute exacerbation of chronic obstructive airways disease J44.1 Acute and chronic respiratory failure with hypercapnia J96.22 Pseudomonas aeruginosa colonization Z22.39 COPD (chronic obstructive pulmonary disease) J44.9 Personal history of nicotine dependence Z87.891 Body mass index less than 16.5 Z68.1 Sinus tachycardia R00.0
[2023-01-07] VITALS (9 sets, daily range): BP systolic 103–134; BP diastolic 53–64; PULSE 66–82; RESP 15–18; TEMP 36.6–36.8; O2SAT 93–99
[2023-01-07] MEDS: ipratropium-albuterol 3 mL Neb INHALATION ×2 (02:19→08:22)
[2023-01-07] MEDS: heparin 5,000 unit/mL INJ 1 mL 5000 UNIT SUBCUT (04:38)
[2023-01-07 05:02] LABS: Hematocrit 32.7 % (37.0-47.0); Hemoglobin 9.9 g/dL (11.5-15.3); Mean Corpuscular HGB Conc 30.3 g/dL (30.0-36.0); Mean Corpuscular Volume 95.9 fl (81-99); Mean Platelet Volume 9.7 fL (7.4-10.4); Monocytes # 0.8 10^3/uL (0.2-0.9); Monocytes % 9.4 %; Neutrophils % 78.3 %; Nucleated Red Blood Cells % 0 %; Platelet Count 194 10^3/cmm (130-400); Red Blood Count 3.41 10^6/uL (4.1-5.3); Red Cell Distribution Width 15.9 % (12.1-15.1); White Blood Count 8.7 10^3/uL (4.0-10.0)
[2023-01-07 05:23] LABS: Anion Gap 7.4 (5-19); Blood Urea Nitrogen 18 mg/dL (8-23); Calcium 9.2 mg/dL (8.5-10.5); Carbon Dioxide 36 mmol/L (22-29); Chloride 102 mmol/L (98-107); Glucose 89 mg/dL (65-115); Osmolality Calculated 293 mOsm/kg (285-295); Potassium 4.4 mmol/L (3.5-5.1); Sodium 141 mmol/L (136-145)
[2023-01-07] MEDS: dexamethasone 10 mg/mL INJ 6 MG IVP (06:22)
[2023-01-07] MEDS: budesonide 0.5 mg/2 mL Neb INHALATION (08:22)
[2023-01-07] MEDS: roflumilast 500 mcg Tablet PO (08:26)
[2023-01-07] MEDS: dilTIAZem 30 mg Tablet PO (08:26)
[2023-01-07] MEDS: azithromycin 250 mg Tablet 500 MG PO (08:27)
[2023-01-07] MEDS: metoprolol tartrate 25 mg Tablet PO (08:27)
--- NOTE | 2023-01-07 11:06 | PM.DCS ---
Discharge Providers Date of Admission: 01/05/23 03:16 Date of Discharge: January 07, 2023 Attending Provider at Admission: Cecy Lynne MD Attending Provider at Discharge: Herbie Cifuentes MD Primary Care Provider: Norman Lazo MD Diagnoses at Discharge Discharge Diagnosis (1) Acute exacerbation of chronic obstructive airways disease: Status: Acute (2) Acute and chronic respiratory failure with hypercapnia: Status: Acute (3) Pseudomonas aeruginosa colonization: Status: Acute (4) COPD (chronic obstructive pulmonary disease): Status: Chronic (5) Personal history of nicotine dependence: Status: Chronic Permanent problem details: quit in 2019, but still with 2nd hand exposure (6) Body mass index less than 16.5: Status: Acute (7) Sinus tachycardia: Status: Acute (8) Severe protein-calorie malnutrition: Status: Inactive Reason for Visit Reason for Visit: SOB Hospital Course Hospital Course 72 year old female with past medical history of COPD Gold class D, with chronic hypoxic respiratory failure, paroxysmal atrial fibrillation, pulmonary fibrosis, and history of Pseudomonas colonization came in with chief complaint of worsening shortness of breath that pretty much started after she finished taking her prednisone at home.? She was recently discharged from the hospital on 23 December.? She states she has a feeling of air hunger.? Denies a cough or production of sputum, fever, nausea, vomiting, diarrhea, chest pain.? She states she feels fine and believes she just needs an antibiotic and she can go home.? She is requiring 4 L of oxygen here at x5 L.? Her baseline O2 is 2 L.? In the past patient used to be on azithromycin Wednesday for gold class D COPD however that was stopped after 2 years to see how the patient would do.? She last saw pulmonology in July 2022.? BNP 904 today.? History of diastolic dysfunction on echo.? Denies any lower extremity edema at this time. Patient was admitted to [facility] for acute on chronic respiratory failure secondary to COPD exacerbation, received steroid therapy antibiotic therapy, oxygen therapy, patient overall clinically improved, discharged on doxycycline, and a prednisone taper, follow-up with primary care Patient also had severe protein calorie malnutrition, she has temporal muscle wasting, peripheral muscle wasting primarily in her thighs, in both shoulders, both arms, her BMI is 14.6, had a serious discussion about her about severe muscle wasting that happens in people have severe respiratory failure due to insensible water losses and increased work of breathing that resulted in loss of muscle, she needs to increase her calorie intake, I will have dietary see her,, recommend her to drink an Ensure drink 3 times a day, hydrate well, increased calorie intake, follow-up with primary care provider Physical Exam Const: COMMON NORMALS: no acute distress and patient oriented x3 Resp: COMMON NORMALS: normal respiratory effort, No retractions, No use of accessory muscles and clear to auscultation bilaterally AUSCULTATION: clear to auscultation bilaterally Cardio: COMMON NORMALS: regular rate, regular rhythm, S1 normal heart sound present and S2 normal heart sound present RATE: regular rate RHYTHM: regular rhythm HEART SOUNDS: S1 normal heart sound present and S2 normal heart sound present GI: COMMON NORMALS: Normal to inspection, nondistended, normoactive bowel sounds present and non-tender Extremity: COMMON NORMALS: no pedal edema Neuro: COMMON NORMALS: patient oriented x3 Psych: COMMON NORMALS: mental status grossly normal Discharge Data Studies Completed and Pending Completed Studies During Hospitalization Category Date Time Status XR chest 1V portable [id number] Stat Exams 01/05/23 02:16 Completed Pending at discharge Category Date Time Status Basic Metabolic Panel AM LABS Lab 01/08/23 04:00 Ordered Basic Metabolic Panel AM LABS Lab 01/09/23 04:00 Ordered Complete Blood Count w/Auto AM LABS Lab 01/08/23 04:00 Ordered Complete Blood Count w/Auto AM LABS Lab 01/09/23 04:00 Ordered Sputum Culture and Gram Stain Stat Lab 01/05/23 04:49 Uncollected Radiology Impressions Chest X-Ray 01/05/23 02:16 IMPRESSION: COPD, interstitial disease, and bilateral upper lobe scarring. Laboratory Results WBC 8.7 10^3/uL (4.0-10.0) 01/07/23 04:33 RBC 3.41 10^6/uL (4.1-5.3) L 01/07/23 04:33 Hgb 9.9 g/dL (11.5-15.3) L 01/07/23 04:33 Hct 32.7 % (37.0-47.0) L 01/07/23 04:33 MCV 95.9 fl (81-99) 01/07/23 04:33 MCH 29.0 pg (28.0-34.0) 01/07/23 04:33 MCHC 30.3 g/dL (30.0-36.0) 01/07/23 04:33 RDW 15.9 % (12.1-15.1) H 01/07/23 04:33 Plt Count 194 10^3/cmm (130-400) 01/07/23 04:33 MPV 9.7 fL (7.4-10.4) 01/07/23 04:33 Neut % (Auto) 78.3 % 01/07/23 04:33 Lymph % (Auto) 12.0 % 01/07/23 04:33 [place] % (Auto) 9.4 % 01/07/23 04:33 Eos % (Auto) 0.0 % 01/07/23 04:33 Baso % (Auto) 0.0 % 01/07/23 04:33 Neut # (Auto) 6.80 10^3/uL (1.8-7.7) 01/07/23 04:33 Lymph # (Auto) 1.0 10^3/uL (0.8-4.8) 01/07/23 04:33 [place] # (Auto) 0.8 10^3/uL (0.2-0.9) 01/07/23 04:33 Eos # (Auto) 0.0 10^3/uL (0.0-0.8) 01/07/23 04:33 Baso # (Auto) 0.0 10^3/uL (0.0-0.1) 01/07/23 04:33 Nucleated RBC % (auto) 0 % 01/07/23 04:33 Nucleated RBCs # 0.0 /100WBC 01/07/23 04:33 Specimen Type Arterial 01/05/23 02:27 Sample Site Radial, right 01/05/23 02:27 ABG pH 7.24 (7.35-7.45) L 01/05/23 02:27 ABG pCO2 94.1 mmHg (35-45) H* 01/05/23 02:27 ABG pO2 83.7 mmHg (80.0-100.0) 01/05/23 02:27 ABG HCO3 40.4 mmol/L (22-26) H 01/05/23 02:27 ABG Base Excess 10.0 mmol/L (-2.0-2.0) H 01/05/23 02:27 Nikolas Test Pos 01/05/23 02:27 Hematocrit 34.2 % (37-47) L 01/05/23 02:27 O2 Delivery Device Nc 01/05/23 02:27 O2 Liters/Min 5.0 % 01/05/23 02:27 FiO2 40.0 % 01/05/23 02:27 Hat Band Attacher ID [email or web address] 01/05/23 02:27 Sodium 141 mmol/L (136-145) 01/07/23 04:33 Potassium 4.4 mmol/L (3.5-5.1) 01/07/23 04:33 Chloride 102 mmol/L (98-107) 01/07/23 04:33 Carbon Dioxide 36 mmol/L (22-29) H 01/07/23 04:33 Anion Gap 7.4 (5-19) 01/07/23 04:33 BUN 18 mg/dL (8-23) 01/07/23 04:33 Creatinine 0.3 mg/dL (0.5-0.9) L 01/07/23 04:33 GFR Calculation Not Reportable 01/07/23 04:33 Glucose 89 mg/dL (65-115) 01/07/23 04:33 Calculated Osmolality 293 mOsm/kg (285-295) 01/07/23 04:33 Calcium 9.2 mg/dL (8.5-10.5) 01/07/23 04:33 Magnesium 2.0 mg/dL (1.7-2.3) 01/06/23 04:38 Total Bilirubin 0.3 mg/dL (0.15-1.2) 01/05/23 02:25 AST 14 U/L (0-32) 01/05/23 02:25 ALT 9 U/L (0-33) 01/05/23 02:25 Alkaline Phosphatase 50 U/L (35-105) 01/05/23 02:25 Troponin T Baseline 25 ng/L (0-10) H 01/05/23 02:25 Troponin T 120 Minute 22.18 ng/L (0-10) H 01/05/23 04:48 Delta Troponin T -2.82 ABS# (0-10) L 01/05/23 04:48 Troponin T Hi Sens 6Hr 19.21 ng/L (0-10) H 01/05/23 08:21 Troponin T Hi Sens 6Hr Delta -5.79 ng/L (0-12) L 01/05/23 08:21 NT-Pro-B Natriuret Pep 904 pg/mL (0-125) H 01/05/23 02:25 Total Protein 6.6 g/dL (6.6-8.7) 01/05/23 02:25 Albumin 3.5 g/dL (3.5-5.2) 01/05/23 02:25 Globulin 3.1 g/dL (1.3-4.6) 01/05/23 02:25 Procalcitonin 0.03 ng/mL (0-0.5) 01/05/23 02:25 Vitals Last Vital Signs Temp 98.1 F 01/07/23 07:39 Pulse 76 01/07/23 08:29 Resp 18 01/07/23 08:23 BP 134/64 01/07/23 07:39 Pulse Ox 93 01/07/23 08:23 O2 Del Method Nasal Cannula 01/07/23 08:23 O2 Flow Rate 2 01/07/23 08:23 FiO2 40 01/06/23 22:35 Discharge Plan Discharge Patient Disposition: Home Condition: Stable Prescriptions: New doxycycline hyclate 100 mg tablet 100 mg PO BID 5 Days Qty: 10 0RF prednisone 10 mg tablet See Rx Instructions .ROUTE .COMPLEX Qty: 53 0RF Rx Instructions: 4 tabs a day for 5 days, 3 tabs for 5 days, 2 tabs for 5 days, 1 tab for 5 days, half a tab for 5 days Continued ipratropium-albuterol 0.5 mg-3 mg(2.5 mg base)/3 mL solution for nebulization 3 ml INHALATION QID PRN (Reason: wheezing) 30 Days Qty: 360 3RF (DME) oxygen small bottle See Rx Instructions .Route .MEDSUPPLY Qty: 1 0RF Rx Instructions: switch condensor to small tank celecoxib 200 mg capsule 200 mg PO BID Qty: 180 1RF levocetirizine 5 mg tablet 5 mg PO DAILY Qty: 30 5RF metoprolol tartrate 25 mg tablet 25 mg PO BID Qty: 60 3RF albuterol sulfate [Ventolin HFA] 90 mcg/actuation HFA aerosol inhaler 1 puff INHALATION TID PRN (Reason: Shortness Of Breath) Qty: 18 3RF fluticasone propion-salmeterol [Advair Diskus] 100-50 mcg/dose blister with device 1 inh inhalation BID Qty: 60 3RF Spiriva with HandiHaler 18 mcg capsule, w/inhalation device 1 cap inhalation DAILY Qty: 1 3RF Rx Instructions: Inhale 1 puff by mouth once daily aspirin 81 mg Tablet,Chewable 81 mg PO DAILY [place] 0.01 % drops 1 drp ophthalmic (eye) QPM Rx Instructions: both eyes diltiazem HCl 30 mg Tablet 30 mg PO TID Qty: 90 0RF Discharge Orders: Discharge Order (Routine); Ordered 01/07/23 Ordered By: Herbie Cifuentes Referrals: Norman Lazo MD [Primary Care Provider] - Discharge Diet: Regular Discharge Activity: Resume usual activity Patient Instructions: High Protein / High Calorie Diet (DC), Malnutrition (DC), Opioid Safety Activity Restrictions/Additional Instructions: - Please drink plenty of electrolyte balanced fluids -Take antibiotics and steroids as prescribed -Please follow-up with primary care -Instructions for malnutrition Discharge Attestations Time Spent in Discharge Care*: greater than 30 min Status at Discharge: Cognitive status at discharge: cognitively intact, Behavioral status at discharge: cooperative, Quality Metrics Clinical Quality Measures [ No reported AMI, CVA or VTE this stay] Coding Level of Care Code 20567 Total time (in minutes) for Discharge: 50 Diagnoses Acute exacerbation of chronic obstructive airways disease J44.1 Acute and chronic respiratory failure with hypercapnia J96.22 Pseudomonas aeruginosa colonization Z22.39 COPD (chronic obstructive pulmonary disease) J44.9 Personal history of nicotine dependence Z87.891 Body mass index less than 16.5 Z68.1 Sinus tachycardia R00.0 Severe protein-calorie malnutrition E43
== END 2023-01-07 13:45 | disposition home or self-care (01) ==
LOC: ER 02:23 → MEDSURG 03:54
PROVIDERS: Internal Medicine; Admitting Provider Family Medicine; Emergency Provider Emergency Medicine; PCP Family Medicine; Visit Provider Family Medicine
DX: J44.1 Chronic obstructive pulmonary disease with (acute) exacerbation (principal); J96.22 Acute and chronic respiratory failure with hypercapnia; I48.0 Paroxysmal atrial fibrillation; Z79.01 Long term (current) use of anticoagulants; J84.10 Pulmonary fibrosis, unspecified; E43 Unspecified severe protein-calorie malnutrition; Z68.1 Body mass index [BMI] 19.9 or less, adult; Z99.81 Dependence on supplemental oxygen; Z87.891 Personal history of nicotine dependence; Z77.22 Contact with and (suspected) exposure to environmental tobacco smoke (acute) (chronic)
CPT/HCPCS: 36415; 36600; 71045; 80048; 80053; 82803; 83735; 83880; 84145; 84484; 85025; 93005; 94640; 94660; 94664; 96372; 96374; 96375; 97110; 97161; 99291; G0378; J1100; J1644; J7512; J7626; Q0144

== ENCOUNTER 2023-01-14 13:11 | Outpatient (CLI) | payer MEDICARE, MEDICAID, SELFPAY | END 2023-01-14 13:12 | disposition home or self-care (01) | PROVIDERS: PCP Family Medicine; Visit Provider Family Medicine | DX: Z53.9 Procedure and treatment not carried out, unspecified reason (principal); M81.0 Age-related osteoporosis without current pathological fracture | CPT/HCPCS: 77080 ==

== ENCOUNTER → 2023-01-28 10:20 | Outpatient (BNVA) | payer MEDICARE, MEDICAID, SELFPAY | PROVIDERS: PCP Family Medicine; Visit Provider Internal Medicine Pulmonary Disease | DX: J44.9 Chronic obstructive pulmonary disease, unspecified (principal); R91.1 Solitary pulmonary nodule; J96.11 Chronic respiratory failure with hypoxia; J96.12 Chronic respiratory failure with hypercapnia; Z99.81 Dependence on supplemental oxygen; Z87.891 Personal history of nicotine dependence | CPT/HCPCS: 99214 ==

== ENCOUNTER 2023-02-07 17:42 | Inpatient (IN) | payer MEDICARE, MEDICAID, SELFPAY ==
[2023-02-07] VITALS (14 sets, daily range): BP systolic 94–116; BP diastolic 57–67; PULSE 84–108; RESP 16–28; TEMP 36.4; O2SAT 88–96; BMI 15.7
--- NOTE | 2023-02-07 17:46 | ED_ITS ---
HPI - SOB/Dyspnea General: Chief Complaint: Shortness of Breath/Dyspnea Stated Complaint: SOB Time Seen by Provider: 02/07/23 17:45 Source: patient Mode of arrival: ambulatory History of Present Illness: HPI Narrative: 73-year-old female history of COPD chronically on 2 L by nasal cannula presents emergency room after several days of shortness of breath difficulty breathing her oxygen sat had dropped into the 70s according to family report. When EMS arrived they found she was moderately hypoxic increased her oxygen to 3 on arrival here she is in the mid 80s on 3 L/min she is complaining of nonprod uctive cough and chest congestion. She not been on antibiotics or steroids recently. Denies chest pain denies fever. MD elicited complaint: shortness of breath and cough Pertinent past history: COPD Onset (ago): day(s) (3) Timing: constant Exacerbating factors: exertion and coughing Relieving factors: oxygen, rest and bronchodilators Known history of: COPD Associated symptoms: Deny abdominal pain, chest congestion, chest pain, cough, diaphoresis, dizziness, extremity pain, fever(s), hemoptysis, myalgias, nausea, palpitations, paresthesias, polydipsia, polyuria, rash, sense of impending doom or vomiting Treatment prior to arrival: oxygen and bronchodilator Review of Systems Const: Denies: fever(s), chills or diaphoresis ENMT: Denies: throat pain, ear or mastoid pain, nasal discharge or nasal congestion Card: Denies: chest pain or palpitations Resp: Reports: dyspnea, non-productive cough and wheezing; Denies: hemoptysis or chest congestion GI: Denies: abdominal pain, nausea or vomiting : Denies: flank pain, difficulty voiding, dysuria, urinary frequency or urinary urgency Musc: Denies: neck pain, back pain or extremity pain Skin/Breast: Denies: rash or pruritus Neuro: Denies: dizziness Endo: Denies: polyuria or polydipsia PFSH ED PFSH: Medical History (Updated 02/08/23 @ 14:38 by Brant Da Silva DO) Acute exacerbation of chronic obstructive airways disease Acute on chronic respiratory failure with hypoxia and hypercapnia Acute on chronic respiratory failure with hypoxia and hypercapnia Atrial fibrillation transient, during acute COPD exacerbation in 2019 Back pain Chest pain Chronic obstructive pulmonary emphysema Chronic respiratory failure with hypoxia and hypercapnia COPD (chronic obstructive pulmonary disease) History of echocardiogram 08/2019 EF 65%, grade I/IV diastolic dysfunction, PAP within normal limits History of PFTs 10/2019 severe airflow obstruction, FEV1/FVC of 33%, FEV1 0.57 L 29% predicted, FVC 1.76 L 71% predicted, TLC 107%, RV 163%, reduced DLCO at 25% Hyperkalemia Mass of upper lobe of left lung cavitary appearance, never biopsied due to risk of complication and non- surgical candidate, has been stable on imaging On home oxygen therapy 2-3 L BNC at baseline Osteoarthritis Osteoporosis Paroxysmal A-fib Personal history of nicotine dependence quit in 2018, but still with 2nd hand exposure Pseudomonas aeruginosa colonization Pulmonary fibrosis Pulmonary nodule left lower lobe Seasonal allergies Uses bilevel positive airway pressure (BPAP) ventilation at home trilogy, via [facility], [place] Surgical History History of kyphoplasty (2014) L1, L2, L3, L5 performed by Dr. Roman Marquez Family History Mother CAD (coronary artery disease) Social History Smoking and tobacco status: former smoker Quit status (tobacco): has quit using tobacco Year quit tobacco: 2018 - 1PPD x 50 Years Second hand smoke exposure: Yes Alcohol intake: never Substance/Drug Use: never Lives independently: Yes Household members: none Marital status: Current occupational status: retired Do you think of yourself as: Straight/Heterosexual Current gender identity: Female Physical Exam Const: GENERAL APPEARANCE: cooperative and comfortable ORIENTATION/CONSCIOUSNESS: Yes awake, Yes oriented to person, Yes oriented to place and Yes oriented to time HENMT: COMMON NORMALS: normocephalic, atraumatic and hearing grossly normal bilaterally HEAD & SCALP: normocephalic and atraumatic Resp: COMMON NORMALS: No use of accessory muscles AUSCULTATION: rhonchi and wheezes Cardio: COMMON NORMALS: regular rate, regular rhythm and No murmurs present (Cardio) RATE: regular rate RHYTHM: regular rhythm GI: COMMON NORMALS: Soft to palpation and No hepatosplenomegaly present AUSCULTATION: Yes normoactive bowel sounds PALPATION: Yes Soft to palpation, No Tenderness to palpation present (GI), No Guarding due to palpation present (GI) and Yes No hepatosplenomegaly present Extremity: COMMON NORMALS: normal to inspection, capillary refill normal, no clubbing, cyanosis or edema, no calf tenderness and no pedal edema Neuro: SENSORIUM/ORIENTATION: Yes oriented to person, Yes oriented to place and Yes oriented to time Skin: COMMON NORMALS: no rashes or lesions noted GENERAL SKIN EXAM: no rashes or lesions noted Course Vital Signs: Vital signs: Vital Signs Temperature 97.5 F L 02/08/23 05:00 Pulse Rate 114 H 02/08/23 16:00 Respiratory Rate 26 H 02/08/23 16:00 Blood Pressure 112/56 02/08/23 16:00 Pulse Oximetry 99 02/08/23 16:00 Oxygen Delivery Me thod Nasal Cannula 02/08/23 16:00 Oxygen Flow Rate 3 02/08/23 16:00 Fraction of Inspir ed Oxygen 35 02/08/23 11:23 MDM - SOB/Dyspnea Medical Decision Making Acute hypercapnic respiratory failure secondary to exacerbation COPD steroids nebs given started on BiPAP. No acute pneumonia on chest x-ray other labs unremarkable EKG shows no acute changes no sign of congestive heart failure acute coronary syndrome. Admit discussed with hospitalist orders written Medical Records I reviewed the patient's medical records. Lab Data I reviewed the patient's lab results. 02/08/23 03:17 02/08/23 03:17 Labs/Radiology: Radiology Impressions Chest X-Ray 02/07/23 17:46 IMPRESSION: 1. Biapical pleuroparenchymal chronic appearing fibrosis. 2. Emphysematous changes. 3. Costophrenic angle scarring bilaterally. Laboratory Results WBC 6.1 10^3/uL (4.0-10.0) 02/07/23 18:00 RBC 4.94 10^6/uL (4.1-5.3) 02/07/23 18:00 Hgb 14.0 g/dL (11.5-15.3) 02/07/23 18:00 Hct 48.6 % (37.0-47.0) H 02/07/23 18:00 MCV 98.4 fl (81-99) 02/07/23 18:00 MCH 28.3 pg (28.0-34.0) 02/07/23 18:00 MCHC 28.8 g/dL (30.0-36.0) L 02/07/23 18:00 RDW 15.7 % (12.1-15.1) H 02/07/23 18:00 Plt Count 297 10^3/cmm (130-400) 02/07/23 18:00 MPV 9.2 fL (7.4-10.4) 02/07/23 18:00 Neut % (Auto) 56.7 % 02/07/23 18:00 Lymph % (Auto) 28.5 % 02/07/23 18:00 [place] % (Auto) 12.2 % 02/07/23 18:00 Eos % (Auto) 1.6 % 02/07/23 18:00 Baso % (Auto) 0.5 % 02/07/23 18:00 Neut # (Auto) 3.48 10^3/uL (1.8-7.7) 02/07/23 18:00 Lymph # (Auto) 1.8 10^3/uL (0.8-4.8) 02/07/23 18:00 [place] # (Auto) 0.8 10^3/uL (0.2-0.9) 02/07/23 18:00 Eos # (Auto) 0.1 10^3/uL (0.0-0.8) 02/07/23 18:00 Baso # (Auto) 0.0 10^3/uL (0.0-0.1) 02/07/23 18:00 Nucleated RBC % (auto) 0 % 02/07/23 18:00 Nucleated RBCs # 0.0 /100WBC 02/07/23 18:00 D-Dimer 0.64 ug/mIFEU (0-0.59) H 02/07/23 18:00 Specimen Type Arterial 02/07/23 18:05 Sample Site Brachial, left 02/07/23 18:05 ABG pH 7.26 (7.35-7.45) L 02/07/23 18:05 ABG pCO2 96.5 mmHg (35-45) H* 02/07/23 18:05 ABG pO2 51.6 mmHg (80.0-100.0) L 02/07/23 18:05 ABG HCO3 42.8 mmol/L (22-26) H 02/07/23 18:05 ABG O2 Saturation 86.2 02/07/23 18:05 ABG Base Excess 11.9 mmol/L (-2.0-2.0) H 02/07/23 18:05 Nikolas Test Pos 02/07/23 18:05 A-a O2 Gradient 8.0 mmHg (5-10) 02/07/23 18:05 Hematocrit 37.6 % (37-47) 02/07/23 18:05 Hgb O2 Saturation 80.9 % (95-100) L 02/07/23 18:05 Carboxyhemoglobin 5.7 %THgb (0.4-20.1) 02/07/23 18:05 Methemoglobin 0.4 % (0.4-1.5) 02/07/23 18:05 Total Hemoglobin 12.3 g/dL (12-16) 02/07/23 18:05 Sodium 137.0 mmol/L (131-143) 02/07/23 18:05 Potassium 4.7 mmol/L (3.5-5.0) 02/07/23 18:05 Glucose 123.0 mg/dL (70-115) H 02/07/23 18:05 Ionized Calcium mmol/L (1.1-1.4) 02/07/23 18:05 O2 Delivery Device Bipap 02/07/23 18:05 FiO2 32.0 % 02/07/23 18:05 Manager Mechanical Maintenance ID [email or web address] 02/07/23 18:05 Sodium 138 mmol/L (136-145) 02/07/23 18:00 Potassium 5.1 mmol/L (3.5-5.1) 02/07/23 18:00 Chloride 92 mmol/L (98-107) L 02/07/23 18:00 Carbon Dioxide 37 mmol/L (22-29) H 02/07/23 18:00 Anion Gap 14.1 (5-19) 02/07/23 18:00 BUN 14 mg/dL (8-23) 02/07/23 18:00 Creatinine 0.4 mg/dL (0.5-0.9) L 02/07/23 18:00 GFR Calculation Not Reportable 02/07/23 18:00 Glucose 111 mg/dL (65-115) 02/07/23 18:00 Estimat Average Glucose 120 02/07/23 18:00 Hemoglobin A1c 5.8 % (4.0-6.0) 02/07/23 18:00 Calculated Osmolality 287 mOsm/kg (285-295) 02/07/23 18:00 Calcium 9.6 mg/dL (8.5-10.5) 02/07/23 18:00 Total Bilirubin 0.3 mg/dL (0.15-1.2) 02/07/23 18:00 AST 18 U/L (0-32) 02/07/23 18:00 ALT 10 U/L (0-33) 02/07/23 18:00 Alkaline Phosphatase 61 U/L (35-105) 02/07/23 18:00 NT-Pro-B Natriuret Pep 1039 pg/mL (0-125) H 02/07/23 18:00 Total Protein 7.4 g/dL (6.6-8.7) 02/07/23 18:00 Albumin 4.4 g/dL (3.5-5.2) 02/07/23 18:00 Globulin 3.0 g/dL (1.3-4.6) 02/07/23 18:00 Procalcitonin 0.03 ng/mL (0-0.5) 02/07/23 18:00 TSH 1.29 uIU/mL (0.27-4.20) 02/07/23 18:00 Discharge Plan Discharge Patient Disposition: Admitted As Inpatient Admit Provider: Reyes Joiner Clinical Impression: Acute hypercapnic respiratory failure, Atrial fibrillation, Acute exacerbation of chronic obstructive airways disease Condition: Stable Coding Level of Care Code ED Coordinator Volunteer Services for Jihan Jimenes
--- NOTE | 2023-02-07 17:46 | ECG_ITS ---
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 Measurements Intervals [place] Rate: 97 P: 148 SC: 130 QRS: 149 QRSD: 89 T: 145 QT: 315 QTc: 402 Interpretive Statements SINUS RHYTHM WITH OCCASIONAL SUPRAVENTRICULAR PREMATURE COMPLEXES ARM LEADS REVERSED [INVERTED P AND QRS IN I] Compared to ECG 01/05/2023 18:11:09 Sinus tachycardia no longer present Electronically Signed On 02-07-2023 19:28:58 CDT by Nicholas Vega M.D. [id number]
--- NOTE | 2023-02-07 17:46 | XRR_ITS ---
PROCEDURE INFORMATION: Exam: XR Chest Exam date and time: 02/07/2023 6:15 PM Age: 73 years old Clinical indication: Cough and dyspnea; Additional info: Dyspnea/cough TECHNIQUE: Imaging protocol: Radiologic exam of the chest. Views: 1 view. COMPARISON: CR (CHEST, ) 01/05/2023 2:39 AM FINDINGS: Lungs: Biapical pleuroparenchymal chronic appearing fibrosis. Emphysematous changes. Pleural spaces: Costophrenic angle scarring bilaterally. Heart/Mediastinum: Unremarkable. No cardiomegaly. Bones/joints: Unremarkable. XR/XR chest 1V portable [id number] IMPRESSION: 1. Biapical pleuroparenchymal chronic appearing fibrosis. 2. Emphysematous changes. 3. Costophrenic angle scarring bilaterally.
[2023-02-07] MEDS: ipratropium-albuterol 3 mL Neb INHALATION (17:58)
[2023-02-07 18:15] LABS: ABG PH Result 7.26 (7.35-7.45); Arterial Blood Gas Hematocrit 37.6 % (37-47); Base Excess ABG 11.9 mmol/L (-2.0-2.0); Blood Gas Allen Test Pos; Blood Gas Operator Identificat glc; Blood Gas Sample Site Brachial, left; Blood Gas Sample Type Arterial; Carboxyhemoglobin 5.7 %THgb (0.4-20.1); HCO3 ABG 42.8 mmol/L (22-26); HGB O2 Sat 80.9 % (95-100); Methemoglobin 0.4 % (0.4-1.5); Oxygen Device BIPAP; Oxygen Saturation ABG 86.2; PO2 ABG 51.6 mmHg (80.0-100.0); Potassium Level - ABG 4.7 mmol/L (3.5-5.0); Total Hemoglobin 12.3 g/dL (12-16)
[2023-02-07 18:26] LABS: ABG PCO2 96.5 mmHg (35-45)
[2023-02-07 18:26] LABS: Basophils % 0.5 %; Eosinophils # 0.1 10^3/uL (0.0-0.8); Eosinophils % 1.6 %; Hematocrit 48.6 % (37.0-47.0); Lymphocytes # 1.8 10^3/uL (0.8-4.8); Lymphocytes % 28.5 %; Mean Corpuscular HGB Conc 28.8 g/dL (30.0-36.0); Mean Corpuscular Hemoglobin 28.3 pg (28.0-34.0); Mean Corpuscular Volume 98.4 fl (81-99); Mean Platelet Volume 9.2 fL (7.4-10.4); Monocytes # 0.8 10^3/uL (0.2-0.9); Monocytes % 12.2 %; Neutrophils # 3.48 10^3/uL (1.8-7.7); Neutrophils % 56.7 %; Nucleated Red Blood Cells % 0 %; Platelet Count 297 10^3/cmm (130-400); Red Blood Count 4.94 10^6/uL (4.1-5.3); Red Cell Distribution Width 15.7 % (12.1-15.1); White Blood Count 6.1 10^3/uL (4.0-10.0)
[2023-02-07 18:31] LABS: Alanine Aminotransferase 10 U/L (0-33); Albumin Level 4.4 g/dL (3.5-5.2); Alkaline Phosphatase 61 U/L (35-105); Anion Gap 14.1 (5-19); Aspartate Amino Transferase 18 U/L (0-32); Blood Urea Nitrogen 14 mg/dL (8-23); Calcium 9.6 mg/dL (8.5-10.5); Carbon Dioxide 37 mmol/L (22-29); Chloride 92 mmol/L (98-107); Glucose 111 mg/dL (65-115); Osmolality Calculated 287 mOsm/kg (285-295); Potassium 5.1 mmol/L (3.5-5.1); Sodium 138 mmol/L (136-145); Total Bilirubin 0.3 mg/dL (0.15-1.2); Total Protein 7.4 g/dL (6.6-8.7)
[2023-02-07] MEDS: dexamethasone 10 mg/mL INJ IVP (18:31)
[2023-02-07 18:58] LABS: D Dimer 0.64 ug/mIFEU (0-0.59)
--- NOTE | 2023-02-07 20:17 | P.HP_ITS ---
Providers/Chief Complaint Admitting Physician: Reyes Joiner Primary Care Provider: Norman Lazo MD Chief Complaint: SOB History of Present Illness Marie Hull is a 73 year old female with past medical history of COPD, on home oxygen 2 to 3 L at baseline, atrial fibrillation, pulmonary fibrosis, diastolic heart failure who presented to the hospital today brought in by her daughter for complaint of shortness of breath. She states she could not get the air in. Oxygen saturation had dropped to 70s at home. Her daughter states that patient was fine up until when she appeared more fatigued. She went and saw her primary care doctor on Wednesday and was doing okay but yesterday looked a lot worse. She has also noticed that her mom's legs have been puffier than usual. She has not been on a water pill in the past. She was bringing up whitish sputum. Also experienced some nausea today. Did not vomit however. Denies diarrhea, chest pain. Patient knows she is in the hospital, is alert oriented x3. Currently on BiPAP. She is a former smoker. She recently saw her steel unloader on 28 January. She is currently on Advair Spiriva at home. She was on azithromycin for 3 years and since she was stable it was stopped. She did have a hospital admission July 2022 for COPD exacerbation. Patient was restarted on her Wednesday azithromycin at this visit. Patient doing well. Patient also had a CTA chest done to rule out PE in November of this year and it was negative. CT chest November 2022 that showed severe bullous emphysema with fibrotic changes at lung apices. ED course: 116/60, respirate 18, pulse 93, temperature 97.6, saturating 93% on 3 L nasal cannula. EKG did not show any acute ischemic changes. WBC 6.1, hemoglobin 14, platelets 297 D-dimer 0.64. Initial ABG showed 7.26/26.5/51.6/42.8. Sodium 138, potassium 5.1, CO2 37, creatinine 0.4, glucose 111 BNP 1039. TSH 1.29, procalcitonin 0.03. Chest x-ray shows biapical pleural-parenchymal chronic appearing fibrosis, emphysematous changes, costophrenic angle scarring bilaterally. Most recent echo October 2022 shows normal EF with grade 1 x 4 diastolic dysfunction. Medications/Allergies Home Medications Medication Instructions Recorded Confirmed Last Taken Type aspirin 81 mg chewable tablet 81 mg PO DAILY 08/20/19 01/05/23 07/24/22 History ipratropium 0.5 mg-albuterol 3 mg 3 ml inhalation QID PRN wheezing 02/26/21 01/28/23 07/24/22 Rx (2.5 mg base)/3 mL nebulization 30 days #360 mL soln celecoxib 200 mg capsule 200 mg PO BID #180 caps 03/03/22 01/28/23 11/22/22 Rx oxygen #1 ea 03/24/22 01/28/23 07/24/22 Rx levocetirizine 5 mg tablet 5 mg PO DAILY #30 tabs 06/15/22 01/28/23 11/22/22 Rx metoprolol tartrate 25 mg tablet 25 mg PO BID #60 tabs 06/18/22 01/28/23 11/22/22 Rx albuterol sulfate 90 mcg/actuation 1 puff inhalation TID PRN 09/14/22 01/28/23 Unknown Rx aerosol inhaler (Ventolin HFA) Shortness Of Breath #18 grams fluticasone 100 mcg-salmeterol 50 1 inh inhalation BID #60 ea 09/14/22 01/28/23 11/22/22 Rx mcg/dose blistr powdr for inhalation (Advair Diskus) tiotropium bromide 18 mcg capsule 1 cap inhalation DAILY #1 inh 10/16/22 01/28/23 11/22/22 Rx with inhalation device (Spiriva with HandiHaler) bimatoprost 0.01 % eye drops 1 drp ophthalmic (eye) QPM 10/20/22 01/28/23 11/21/22 History (Neisha) diltiazem HCl 30 mg tablet 30 mg PO TID #90 tabs 10/22/22 01/28/23 11/22/22 Rx prednisone 10 mg tablet See Rx Instructions .Route 01/07/23 01/28/23 Unknown Rx .COMPLEX #53 tabs azithromycin 250 mg tablet 250 mg PO .3 times weekly COPD #36 01/28/23 01/28/23 Unknown Rx tabs Allergies Allergy/AdvReac Type Severity Reaction Status Date / Time No Known Allergies Allergy Verified 01/28/23 10:58 PFSH Acute PFSH: Medical History (Updated 02/08/23 @ 01:50 by Cecy Lynne MD) Acute exacerbation of chronic obstructive airways disease Acute on chronic respiratory failure with hypoxia and hypercapnia Acute on chronic respiratory failure with hypoxia and hypercapnia Atrial fibrillation transient, during acute COPD exacerbation in 2019 Back pain Chest pain Chronic obstructive pulmonary emphysema Chronic respiratory failure with hypoxia and hypercapnia COPD (chronic obstructive pulmonary disease) History of echocardiogram 08/2019 EF 65%, grade I/IV diastolic dysfunction, PAP within normal limits History of PFTs 10/2019 severe airflow obstruction, FEV1/FVC of 33%, FEV1 0.57 L 29% predicted, FVC 1.76 L 71% predicted, TLC 107%, RV 163%, reduced DLCO at 25% Hyperkalemia Mass of upper lobe of left lung cavitary appearance, never biopsied due to risk of complication and non- surgical candidate, has been stable on imaging On home oxygen therapy 2-3 L BNC at baseline Osteoarthritis Osteoporosis Paroxysmal A-fib Personal history of nicotine dependence quit in 2018, but still with 2nd hand exposure Pseudomonas aeruginosa colonization Pulmonary fibrosis Pulmonary nodule left lower lobe Seasonal allergies Uses bilevel positive airway pressure (BPAP) ventilation at home [facility], via [facility] Surgical History History of kyphoplasty (2014) L1, L2, L3, L5 performed by Dr. Roman Marquez Family History Mother CAD (coronary artery disease) Social History Smoking and tobacco status: former smoker Quit status (tobacco): has quit using tobacco Year quit tobacco: 2019 - 1PPD x 50 Years Second hand smoke exposure: Yes Alcohol intake: never Substance/Drug Use: never Lives independently: Yes Household members: none Marital status: Current occupational status: retired Do you think of yourself as: Straight/Heterosexual Current gender identity: Female Vitals/I&O/Wt Last Vital Signs Temp 97.6 F 02/07/23 17:45 Pulse 84 02/07/23 18:56 Resp 22 H 02/07/23 18:56 BP 105/61 02/07/23 18:56 Pulse Ox 94 02/07/23 18:56 O2 Del Method BiPAP 02/07/23 18:30 O2 Flow Rate 3 02/07/23 17:45 FiO2 40 02/07/23 18:28 Weight last 48 hrs Weight 39.018 kg Weight 39.018 kg Physical Exam Narrative: General: Alert oriented x3, patient seen laying in bed on BiPAP at this time. No acute respiratory distress. Laying flat and appears comfortable. HEENT: Normocephalic, atraumatic, EOMI, Cardio: Regular rate rhythm, normal S1-S2, JVD elevated Respiratory: Fine crackles bilaterally appreciated, expiratory wheezes and rhonchi present GI: Abdomen soft, nontender, bowel sounds + Extremities: Trace to 1+ nonpitting edema up to knees Data 02/07/23 18:00 02/07/23 18:00 A&P Assessment and plan (1) COPD (chronic obstructive pulmonary disease): (2) Acute and chronic respiratory failure with hypercapnia: (3) On home oxygen therapy: (4) Uses bilevel positive airway pressure (BPAP) ventilation at home: (5) Diastolic CHF: (6) Pulmonary fibrosis: (7) Atrial fibrillation: Plan #Acute on chronic diastolic congestive heart failure exacerbation #COPD exacerbation/centrilobular emphysema #Chronically oxygen dependent at home 2 L nasal cannula #Atrial fibrillation, currently rate controlled #Pulmonary fibrosis -Continue BiPAP for the night. Recheck a gas in a.m. Clinically patient has improved significantly compared to when she came to the ER. ? Place Stanley catheter for strict input output ? BNP 1039. Does have a history of diastolic heart failure. JVD elevated today. Does have trace to 1+ edema bilateral lower extremities and has edema dependent areas. Will start on Lasix 40 IV daily. She does feel better from breathing aspect while the BiPAP is on. ? Check sputum Gram stain culture, procalcitonin, TSH ? Placed on dexamethasone 6 IV daily ? DuoNeb every 6 hours scheduled, inhaled budesonide twice daily ? Azithromycin 500 daily. Started on Daliresp ? Patient's presentation clinically seems more to be of CHF exacerbation with underlying component of COPD exacerbation. ? Continue aspirin, diltiazem 30 3 times daily, metoprolol tartrate 25 twice daily. We will need to confirm home medications and medrec -Patient did have an echo done in October 2022 which showed normal EF with diastolic dysfunction. I would not repeat for now. She did not have any chest pain today either. ? Continue above treatment and wean off oxygen as able -X-ray did not show any pneumonia at this time. Procalcitonin is also negative. ? PT prior to discharge Full code SCDs, heparin subcu twice daily Daughter present at bedside. All questions answered. Consent obtained from daughter and patient for telehealth. Attestations Medical Necessity Statement*: Greater than 2 midnight stay for management of COPD and CHF exacerbation Coding Level of Care Code G0425 (30 min) TH Encounter Time (min): 45 Patient seen via Telehealth in the acute care setting (hospital or ED location) by agreement and consent of patient or patient dermatology sales representative. Telehealth technology used during the visit includes video and audio. This patient encounter is appropriate and reasonable under the circumstances given the patient?s particular presentation at this time. The patient has been advised of the potential risks and limitations of this mode of treatment (including but not limited to the absence of in-person examination at this time) and has agreed to be treated by an off-site physician for this visit. If deemed clinically necessary from this telehealth visit, or if condition or consent for telehealth visit changes, an in-person visit will be arranged. For this encounter, total ti me for the origination of telehealth care on this date is as shown. Diagnoses COPD (chronic obstructive pulmonary disease) J44.9 Acute and chronic respiratory failure with hypercapnia J96.22 On home oxygen therapy Z99.81 Uses bilevel positive airway pressure (BPAP) ventilation at home Z99.89 Diastolic CHF I50.30 Pulmonary fibrosis J84.10 Atrial fibrillation I48.91
[2023-02-07 21:41] LABS: NT Pro B Type Natriuretic Pept 1039 pg/mL (0-125); Procalcitonin 0.03 ng/mL (0-0.5); Thyroid Stimulating Hormone 1.29 uIU/mL (0.27-4.20)
[2023-02-07 21:45] LABS: Estmated Average Glucose 120; Hemoglobin A1C 5.8 % (4.0-6.0)
[2023-02-07] MEDS: heparin 5,000 unit/mL INJ 1 mL 5000 UNIT SUBCUT (22:03)
[2023-02-07] MEDS: FUROsemide 10 mg/mL SDV 4mL 40 MG IVP (22:05)
[2023-02-08] VITALS (45 sets, daily range): BP systolic 87–120; BP diastolic 47–74; PULSE 79–128; RESP 15–29; TEMP 36.4–36.7; O2SAT 89–100
[2023-02-08 04:09] LABS: Basophils % 0.2 %; Hematocrit 43.2 % (37.0-47.0); Hemoglobin 12.3 g/dL (11.5-15.3); Lymphocytes # 0.2 10^3/uL (0.8-4.8); Lymphocytes % 5.6 %; Mean Corpuscular HGB Conc 28.5 g/dL (30.0-36.0); Mean Corpuscular Hemoglobin 27.9 pg (28.0-34.0); Mean Platelet Volume 9.9 fL (7.4-10.4); Monocytes # 0.1 10^3/uL (0.2-0.9); Monocytes % 1.2 %; Neutrophils # 3.95 10^3/uL (1.8-7.7); Neutrophils % 92.8 %; Nucleated Red Blood Cells % 0 %; Platelet Count 284 10^3/cmm (130-400); Red Blood Count 4.41 10^6/uL (4.1-5.3); Red Cell Distribution Width 15.8 % (12.1-15.1); White Blood Count 4.3 10^3/uL (4.0-10.0)
[2023-02-08 04:34] LABS: Alanine Aminotransferase 9 U/L (0-33); Albumin Level 3.8 g/dL (3.5-5.2); Alkaline Phosphatase 57 U/L (35-105); Aspartate Amino Transferase 17 U/L (0-32); Blood Urea Nitrogen 16 mg/dL (8-23); Calcium 9.5 mg/dL (8.5-10.5); Chloride 92 mmol/L (98-107); Globulin 2.7 g/dL (1.3-4.6); Glucose 169 mg/dL (65-115); Magnesium 1.9 mg/dL (1.7-2.3); Osmolality Calculated 295 mOsm/kg (285-295); Phosphorus 4.6 mg/dL (2.5-4.5); Sodium 140 mmol/L (136-145); Total Bilirubin 0.2 mg/dL (0.15-1.2); Total Protein 6.5 g/dL (6.6-8.7)
[2023-02-08 04:41] LABS: Carbon Dioxide 44 mmol/L (22-29)
[2023-02-08] MEDS: ipratropium-albuterol 3 mL Neb INHALATION ×2 (07:25→11:21)
[2023-02-08] MEDS: budesonide 0.5 mg/2 mL Neb INHALATION ×2 (07:25→19:21)
--- NOTE | 2023-02-08 08:08 | PC.PHAR ---
pts daughter verified pts medications-pts daughter states the pt takes vit d but is unsure of the mcg/units thinks could be 1000 units states will look and let us know for sure on units-pts daughter states the pt just started taking protonix 40mg daily on wednesday-pts daughter states the pt finished the titrating dose of prednisone filled 01/07/23 25d/s-pts daughter states the pt uses the ipratropium-albuterol 0.5mg-3mg tid rx filled 01/21/23 30d/s 3ml qid prn-notes are made in the pharmacy comments
[2023-02-08] MEDS: pantoprazole DR 40 mg Tablet PO (08:37)
[2023-02-08] MEDS: azithromycin 250 mg Tablet 500 MG PO (08:38)
[2023-02-08] MEDS: dexamethasone 10 mg/mL INJ 6 MG IVP (08:40)
[2023-02-08] MEDS: FUROsemide 10 mg/mL SDV 4mL 40 MG IVP (08:45)
[2023-02-08] MEDS: heparin 5,000 unit/mL INJ 1 mL 5000 UNIT SUBCUT ×2 (08:46→21:16)
[2023-02-08] MEDS: acetaminophen 325 mg Tablet 650 MG PO ×2 (09:01→15:16)
[2023-02-08] MEDS: roflumilast 500 mcg Tablet PO (09:21)
--- NOTE | 2023-02-08 10:06 | ECG_ITS ---
[facility] Test Date: 2023-02-08 Pat Name: Marie Hull Department: Room: [facility] Gender: Female Deportation Examiner: : 1950 Requested By: Guilherme Craven Order Number: [id number] Bobby MD: Nicholas Vega M.D. Measurements Intervals [place] Rate: 120 P: 0 ME: 0 QRS: 87 QRSD: 79 T: 78 QT: 278 QTc: 393 Interpretive Statements SINUS TACHYCARDIA WITH PACs Compared to ECG 02/07/2023 18:26:36 SINUS TACHYCARDIA NOW PRESENT Electronically Signed On 02-08-2023 17:29:04 CDT by Nicholas Vega M.D. [id number]
[2023-02-08 11:35] LABS: ABG PH Result 7.45 (7.35-7.45); Arterial Blood Gas Hematocrit 35.8 % (37-47); Base Excess ABG 19.5 mmol/L (-2.0-2.0); Blood Gas Operator Identificat GD; Blood Gas Sample Site Brachial, left; Blood Gas Sample Type Arterial; HCO3 ABG 46.9 mmol/L (22-26); Oxygen Device BIPAP; PO2 ABG 69.3 mmHg (80.0-100.0)
[2023-02-08] MEDS: dilTIAZem 30 mg Tablet PO ×3 (11:45→21:15)
--- NOTE | 2023-02-08 12:10 | PM.PN ---
Subjective Subjective: Repeat ABG showed PCO2 around 60s, PO2 60 as well We will give her a break from BiPAP and let her have her lunch We can start Trelegy I have asked RT to check trilogy settings Patient is awake and alert able to communicate Clinically does not look fluid overloaded Hold Melvin D-dimer not high for her age Vitals/I&O/Wt Last Vital Signs Temp 97.5 F L 02/08/23 05:00 Pulse 120 H 02/08/23 12:00 Resp 25 H 02/08/23 12:00 BP 106/52 02/08/23 12:00 Pulse Ox 97 02/08/23 12:00 O2 Del Method Nasal Cannula 02/08/23 12:00 O2 Flow Rate 3 02/08/23 12:00 FiO2 35 02/08/23 11:23 02/07/23 02/08/23 02/08/23 22:59 06:59 14:59 Intake Total 420 / 420 Output Total 725 / 725 350 / 1075 Balance -725 / -725 -350 / -1075 420 / 420 Weight last 48 hrs Weight 39.018 kg Weight 39.018 kg Physical Exam Narrative: Clinically does not look fluid overloaded Awake and alert Able to communicate GCS 15 Nonfocal neuro exam Rhonchi and crackles noted base of lungs Daughter at the bedside Currently on AVAPS tidal volume 400, PEEP of 8, FiO2 30% Saturating well Abdomen soft Lower extremity no edema Urinary Catheter Management: Stanley: Cath Placed During This Visit: yes Reason for Continuing Indwelling Catheter: Accurate Measurement of Urinary Output in Critically Ill Patients Urinary Catheter Date of Insertion: 02/07/23 Urinary Catheter Time of Insertion: 23:13 Data 02/08/23 03:17 02/08/23 03:17 A&P Assessment and plan (1) COPD (chronic obstructive pulmonary disease): (2) Diastolic CHF: (3) Atrial fibrillation: (4) Pulmonary fibrosis: Plan Acute COPD exacerbation Continue azithromycin and steroids Pulmonary fibrosis with severe restricted pattern FEV1 over FVC 33% EF is preserved Clinically does not look fluid overloaded Hold Melvin Patient is sinus tachycardic this morning repeat EKG did not show A-fib I would not start anticoagulating agent at this point, D-dimer unremarkable I would resume her diltiazem and metoprolol that she was taking at home Most likely this is rebound tachycardia and use of albuterol Repeat blood gas appreciated We will give her a break from the BiPAP We will start trilogy afterwards We will check trilogy settings before discharge Continue steroids, Xopenex Full code Soft mechanical diet: Patient to get at least 45 to 60 minutes of break after meal before initiation of BiPAP/AVAPS or trilogy PT evaluation Self interpretation of EKG: Sinus tachycardia I do not agree with computer read of A-fib I could clearly see P waves Attestations Medical Necessity Statement*: Continue ICU management Diagnoses COPD (chronic obstructive pulmonary disease) J44.9 Diastolic CHF I50.30 Atrial fibrillation I48.91 Pulmonary fibrosis J84.10
--- NOTE | 2023-02-08 14:32 | PC.OT ---
OT EVALUATION ATTEMPTED IN P.M. PATIENT HR IN 120-130s AT REST. EVALUATION TO BE ATTEMPTED AGAIN TOMORROW.
[2023-02-08] MEDS: ipratropium 0.5 mg/2.5 mL Neb INHALATION ×3 (15:41→23:13)
[2023-02-08] MEDS: levalbuterol 0.63 mg/3 mL Neb INHALATION ×3 (15:41→23:13)
[2023-02-08] MEDS: metoprolol tartrate 25 mg Tablet PO (17:52)
[2023-02-09] VITALS (20 sets, daily range): BP systolic 97–119; BP diastolic 52–72; PULSE 76–107; RESP 15–26; TEMP 36.6–36.7; O2SAT 92–100
[2023-02-09] MEDS: ipratropium 0.5 mg/2.5 mL Neb INHALATION ×3 (03:00→11:24)
[2023-02-09] MEDS: levalbuterol 0.63 mg/3 mL Neb INHALATION ×3 (03:01→11:25)
[2023-02-09 03:08] LABS: ABG PH Result 7.44 (7.35-7.45); Arterial Blood Gas Hematocrit 32.9 % (37-47); Base Excess ABG 19.6 mmol/L (-2.0-2.0); Blood Gas Allen Test Pos; Blood Gas Sample Site Radial, left; Blood Gas Sample Type Arterial; Oxygen Device BIPAP; PO2 ABG 59.6 mmHg (80.0-100.0)
[2023-02-09 03:12] LABS: ABG PCO2 69.7 mmHg (35-45)
[2023-02-09 03:50] LABS: Basophils % 0.1 %; Hematocrit 35.6 % (37.0-47.0); Hemoglobin 10.6 g/dL (11.5-15.3); Lymphocytes # 0.7 10^3/uL (0.8-4.8); Lymphocytes % 7.3 %; Mean Corpuscular HGB Conc 29.8 g/dL (30.0-36.0); Mean Corpuscular Hemoglobin 27.9 pg (28.0-34.0); Mean Corpuscular Volume 93.7 fl (81-99); Mean Platelet Volume 9.8 fL (7.4-10.4); Monocytes % 9.8 %; Neutrophils # 8.04 10^3/uL (1.8-7.7); Neutrophils % 82.4 %; Nucleated Red Blood Cells % 0 %; Platelet Count 286 10^3/cmm (130-400); Red Cell Distribution Width 16.1 % (12.1-15.1); White Blood Count 9.8 10^3/uL (4.0-10.0)
[2023-02-09 04:09] LABS: Anion Gap 7.7 (5-19); Blood Urea Nitrogen 24 mg/dL (8-23); Calcium 9.6 mg/dL (8.5-10.5); Chloride 90 mmol/L (98-107); Glucose 115 mg/dL (65-115); Osmolality Calculated 289 mOsm/kg (285-295); Potassium 4.7 mmol/L (3.5-5.1); Sodium 137 mmol/L (136-145)
[2023-02-09 04:11] LABS: Carbon Dioxide 44 mmol/L (22-29)
[2023-02-09] MEDS: budesonide 0.5 mg/2 mL Neb INHALATION (07:36)
--- NOTE | 2023-02-09 07:56 | USCV_ITS ---
Marie Hull Age: 73 Gender: F : 1950 Exam Date: 02/09/2023 10:13 Ordering Phys: Guilherme Craven MD Technologist: Willian Coronado Exam Location: [facility] – [place] Indication: wall motion ef BP: 119 / 59 HR: 90 Rhythm: Sinus Technical Quality: Adequate MEASUREMENTS (Male / Female) Normal Values 2D ECHO LV Diastolic Diameter PLAX 2.3 cm 4.2 - 5.9 / 3.9 - 5.3 cm LV Systolic Diameter PLAX 1.8 cm IVS Diastolic Thickness 1.1 cm 0.6 - 1.0 / 0.6 - 0.9 cm IVS Systolic Thickness 1.2 cm LVPW Diastolic Thickness 0.9 cm 0.6 - 1.0 / 0.6 - 0.9 cm LVPW Systolic Thickness 1.6 cm LVOT Diameter 2.0 cm LV Ejection Fraction 2D Teich 47.4 % LV Ejection Fraction MOD 2C 58.4 % LV Ejection Fraction 2C AL 58.4 % LA Diameter 2.7 cm M-MODE Aortic Annulus Diameter 2.8 cm LA Ao Ratio MM 0.9 MV E Point Septal Separation 0.5 cm DOPPLER TR Peak Velocity 277.7 cm/s TR Peak Gradient 30.8 mmHg TV Peak E Velocity 91.0 cm/s Right Atrial Pressure 3.0 mmHg Pulmonary Artery Systolic Pressu 33.8 mmHg FINDINGS Left Ventricle Left ventricle is normal size. LV systolic function is normal with EF of 55 to 60%. No regional wall motion abnormalities are seen. Right Ventricle Grossly normal Right Atrium Normal in size Left Atrium Normal in size Mitral Valve Grossly normal. Doppler exam not performed. Aortic Valve Grossly normal. Doppler exam not performed Tricuspid Valve Trace tricuspid regurgitation. Insufficient TR jet to calculate RVSP Pulmonic Valve Not well visualized Pericardium Normal Aorta Normal in size IVC Not well-visualized CONCLUSIONS Technically limited quality echocardiogram because of poor ultrasonic windows. LV systolic function is normal with EF 55 to 60%. Valvular structures are not well-visualized. Trace tricuspid regurgitation Compared to prior echocardiogram from 10/20/2022, no significant changes in the LV function noted. Nicholas Vega MD (Electronically Signed) Final Date: 14 February 2023 14:28 S
[2023-02-09] MEDS: heparin 5,000 unit/mL INJ 1 mL 5000 UNIT SUBCUT (08:25)
[2023-02-09] MEDS: dexamethasone 10 mg/mL INJ 6 MG IVP (08:25)
[2023-02-09] MEDS: dilTIAZem 30 mg Tablet PO (08:26)
[2023-02-09] MEDS: roflumilast 500 mcg Tablet PO (08:26)
[2023-02-09] MEDS: metoprolol tartrate 25 mg Tablet PO (08:26)
[2023-02-09] MEDS: pantoprazole DR 40 mg Tablet PO (08:26)
[2023-02-09] MEDS: azithromycin 250 mg Tablet 500 MG PO (08:27)
--- NOTE | 2023-02-09 10:03 | PM.DCS ---
Discharge Providers Date of Admission: 02/07/23 18:33 Date of Discharge: February 09, 2023 Attending Provider at Admission: Reyes Joiner Attending Provider at Discharge: Guilherme Craven MD Primary Care Provider: Norman Lazo MD Diagnoses at Discharge Discharge Diagnosis (1) COPD (chronic obstructive pulmonary disease): Status: Chronic (2) Diastolic CHF: Status: Acute (3) Atrial fibrillation: Status: Acute Permanent problem details: transient, during acute COPD exacerbation in 2019 (4) Pulmonary fibrosis: Status: Acute Reason for Visit Reason for Visit: SOB Hospital Course Hospital Course 73-year-old female with history of chronic hypoxia, 3 L at baseline, paroxysmal A-fib, pulmonary fibrosis, colonization with Pseudomonas, E. coli actinobacter, on chronic suppressive therapy with azithromycin, gold class D, COPD, AVAPS dependent([facility]), was admitted for management of hypoxic hypercapnic acute respiratory failure, patient was kept on AVAPS throughout hospitalization that improved her hypoxia and hypercarbia, metabolic encephalopathy improved as well, lung x-ray is consistent with pulmonary fibrosis, she did receive Lasix initially because of her high BNP of 1000 that improved her symptoms, her bicarb is 44, clinically she is not looking fluid overloaded Lasix discontinued, I have asked the patient to take Lasix with potassium on as-needed basis at home, no signs of pneumonia, she remained afebrile, no leukocytosis, I requested limited echo just to know her right ventricle and left ventricle ejection fraction. She has history of diastolic CHF, the time of discharge she is requiring 3 L of oxygen during the daytime which is at baseline. pH is 7.4 PCO2 around baseline of 70 requested new home oxygen evaluation before discharge, sputum preliminary culture is showing gram-negative rods and few gram-positive cocci in pairs we will add Levaquin at discharge, MRSA PCR negative Previous sputum culture showed E. coli, Pseudomonas, actinobacter, she seems to be colonizing these bacterias, Please note there was concern for atrial flutter/A-fib however she does have prominent P waves on her EKG she was in sinus tachycardia which was secondary to rebound effect, once we started her metoprolol and Cardizem heart rate improved. I have asked patient to take Lasix on as-needed basis Patient will get home health services, AVAPS settings that we use you were tidal volume 400, PEEP 8, FiO2 30 to 35% Patient is full code: Carries guarded prognosis secondary to protein calorie malnourishment, temporal muscle wasting, deconditioning, high risk for readmissions, daughter actively involved in her care Physical Exam Narrative: Patient is awake and alert Pursed lip breathing is at baseline Currently on 3 L Saturating well Abdomen soft Family at the bedside Clinically does not look fluid overloaded Urinary Catheter Management: Stanley: Cath Placed During This Visit: yes Reason for Continuing Indwelling Catheter: Accurate Measurement of Urinary Output in Critically Ill Patients Urinary Catheter Date of Insertion: 02/07/23 Urinary Catheter Time of Insertion: 23:13 Discharge Data Studies Completed and Pending Completed Studies During Hospitalization Category Date Time Status XR chest 1V portable [id number] Stat Exams 02/07/23 17:46 Completed Pending at discharge Category Date Time Status Sputum Culture and Gram Stain Stat Lab 02/08/23 12:15 Results CV. echo limited [id number] Routine Ultrasound 02/09/23 07:56 Ordered Radiology Impressions Chest X-Ray 02/07/23 17:46 IMPRESSION: 1. Biapical pleuroparenchymal chronic appearing fibrosis. 2. Emphysematous changes. 3. Costophrenic angle scarring bilaterally. Laboratory Results WBC 9.8 10^3/uL (4.0-10.0) 02/09/23 03:17 RBC 3.80 10^6/uL (4.1-5.3) L 02/09/23 03:17 Hgb 10.6 g/dL (11.5-15.3) L 02/09/23 03:17 Hct 35.6 % (37.0-47.0) L 02/09/23 03:17 MCV 93.7 fl (81-99) 02/09/23 03:17 MCH 27.9 pg (28.0-34.0) L 02/09/23 03:17 MCHC 29.8 g/dL (30.0-36.0) L 02/09/23 03:17 RDW 16.1 % (12.1-15.1) H 02/09/23 03:17 Plt Count 286 10^3/cmm (130-400) 02/09/23 03:17 MPV 9.8 fL (7.4-10.4) 02/09/23 03:17 Neut % (Auto) 82.4 % 02/09/23 03:17 Lymph % (Auto) 7.3 % 02/09/23 03:17 [place] % (Auto) 9.8 % 02/09/23 03:17 Eos % (Auto) 0.0 % 02/09/23 03:17 Baso % (Auto) 0.1 % 02/09/23 03:17 Neut # (Auto) 8.04 10^3/uL (1.8-7.7) H 02/09/23 03:17 Lymph # (Auto) 0.7 10^3/uL (0.8-4.8) L 02/09/23 03:17 [place] # (Auto) 1.0 10^3/uL (0.2-0.9) H 02/09/23 03:17 Eos # (Auto) 0.0 10^3/uL (0.0-0.8) 02/09/23 03:17 Baso # (Auto) 0.0 10^3/uL (0.0-0.1) 02/09/23 03:17 Nucleated RBC % (auto) 0 % 02/09/23 03:17 Nucleated RBCs # 0.0 /100WBC 02/09/23 03:17 D-Dimer 0.64 ug/mIFEU (0-0.59) H 02/07/23 18:00 Specimen Type Arterial 02/09/23 04:00 Sample Site Radial, left 02/09/23 04:00 ABG pH 7.44 (7.35-7.45) 02/09/23 04:00 ABG pCO2 69.7 mmHg (35-45) H* 02/09/23 04:00 ABG pO2 59.6 mmHg (80.0-100.0) L 02/09/23 04:00 ABG HCO3 47.0 mmol/L (22-26) H 02/09/23 04:00 ABG O2 Saturation 86.2 02/07/23 18:05 ABG Base Excess 19.6 mmol/L (-2.0-2.0) H 02/09/23 04:00 Nikolas Test Pos 02/09/23 04:00 A-a O2 Gradient 8.0 mmHg (5-10) 02/07/23 18:05 Hematocrit 32.9 % (37-47) L 02/09/23 04:00 Hgb O2 Saturation 80.9 % (95-100) L 02/07/23 18:05 Carboxyhemoglobin 5.7 %THgb (0.4-20.1) 02/07/23 18:05 Methemoglobin 0.4 % (0.4-1.5) 02/07/23 18:05 Total Hemoglobin 12.3 g/dL (12-16) 02/07/23 18:05 Sodium 137.0 mmol/L (131-143) 02/07/23 18:05 Potassium 4.7 mmol/L (3.5-5.0) 02/07/23 18:05 Glucose 123.0 mg/dL (70-115) H 02/07/23 18:05 Ionized Calcium mmol/L (1.1-1.4) 02/07/23 18:05 O2 Delivery Device Bipap 02/09/23 04:00 O2 Liters/Min 3.0 % 02/09/23 04:00 FiO2 35.0 % 02/08/23 11:18 Tidal Volume 0.40 02/08/23 11:18 PEEP 6.0 cmH20 02/08/23 11:18 Head Baggage Porter ID [email or web address] 02/09/23 04:00 Sodium 137 mmol/L (136-145) 02/09/23 03:17 Potassium 4.7 mmol/L (3.5-5.1) 02/09/23 03:17 Chloride 90 mmol/L (98-107) L 02/09/23 03:17 Carbon Dioxide 44 mmol/L (22-29) H* 02/09/23 03:17 Anion Gap 7.7 (5-19) 02/09/23 03:17 BUN 24 mg/dL (8-23) H 02/09/23 03:17 Creatinine 0.3 mg/dL (0.5-0.9) L 02/09/23 03:17 GFR Calculation Not Reportable 02/09/23 03:17 Glucose 115 mg/dL (65-115) 02/09/23 03:17 Estimat Average Glucose 120 02/07/23 18:00 Hemoglobin A1c 5.8 % (4.0-6.0) 02/07/23 18:00 Calculated Osmolality 289 mOsm/kg (285-295) 02/09/23 03:17 Calcium 9.6 mg/dL (8.5-10.5) 02/09/23 03:17 Phosphorus 4.6 mg/dL (2.5-4.5) H 02/08/23 03:17 Magnesium 1.9 mg/dL (1.7-2.3) 02/08/23 03:17 Total Bilirubin 0.2 mg/dL (0.15-1.2) 02/08/23 03:17 AST 17 U/L (0-32) 02/08/23 03:17 ALT 9 U/L (0-33) 02/08/23 03:17 Alkaline Phosphatase 57 U/L (35-105) 02/08/23 03:17 NT-Pro-B Natriuret Pep 1039 pg/mL (0-125) H 02/07/23 18:00 Total Protein 6.5 g/dL (6.6-8.7) L 02/08/23 03:17 Albumin 3.8 g/dL (3.5-5.2) 02/08/23 03:17 Globulin 2.7 g/dL (1.3-4.6) 02/08/23 03:17 Procalcitonin 0.03 ng/mL (0-0.5) 02/07/23 18:00 TSH 1.29 uIU/mL (0.27-4.20) 02/07/23 18:00 Vitals Last Vital Signs Temp 97.8 F 02/09/23 04:00 Pulse 107 H 02/09/23 08:00 Resp 25 H 02/09/23 08:00 BP 100/57 02/09/23 08:00 Pulse Ox 96 02/09/23 08:00 O2 Del Method Nasal Cannula 02/09/23 07:25 O2 Flow Rate 3 02/09/23 07:25 FiO2 35 02/08/23 11:23 Discharge Plan Discharge Patient Disposition: Home Condition: Stable Prescriptions: New roflumilast 500 mcg Tablet 500 mcg PO DAILY Qty: 90 0RF levofloxacin 750 mg tablet 750 mg PO DAILY 5 Days Qty: 5 0RF methylprednisolone [Medrol (Rui)] 4 mg tablets,dose pack See Rx Instructions .ROUTE .COMPLEX Qty: 21 0RF Rx Instructions: orally per package directions Continued azithromycin 250 mg tablet 250 mg PO .3 times weekly Qty: 36 3RF Rx Instructions: Take 1 tab (250mg) on Mondays, Wednesdays, and Fridays (DME) oxygen small bottle See Rx Instructions .Route .MEDSUPPLY Qty: 1 0RF Rx Instructions: switch condensor to small tank celecoxib 200 mg capsule 200 mg PO BID Qty: 180 1RF levocetirizine 5 mg tablet 5 mg PO DAILY Qty: 30 5RF metoprolol tartrate 25 mg tablet 25 mg PO BID Qty: 60 3RF albuterol sulfate [Ventolin HFA] 90 mcg/actuation HFA aerosol inhaler 1 puff INHALATION TID PRN (Reason: Shortness Of Breath) Qty: 18 3RF fluticasone propion-salmeterol [Advair Diskus] 100-50 mcg/dose blister with device 1 inh inhalation BID Qty: 60 3RF Spiriva with HandiHaler 18 mcg capsule, w/inhalation device 1 cap inhalation DAILY Qty: 1 3RF pantoprazole 40 mg tablet,delayed release (DR/EC) 40 mg PO DAILY Vitamin D3 25 mcg (1,000 unit) Tablet 1,000 unit PO DAILY ipratropium-albuterol 0.5 mg-3 mg(2.5 mg base)/3 mL solution for nebulization 3 ml INHALATION TID Lumigan 0.01 % drops 1 drp ophthalmic (eye) BEDTIME Rx Instructions: both eyes diltiazem HCl 30 mg Tablet 30 mg PO TID Qty: 90 0RF Discharge Orders: Discharge Order (Routine); Ordered 02/09/23 Ordered By: Guilherme Craven Referrals: Norman Lazo MD [Primary Care Provider] - Discharge Diet: Cardiac Discharge Activity: Increase activity as tolerated Patient Instructions: Opioid Safety Discharge Attestations Time Spent in Discharge Care*: greater than 30 min Status at Discharge: Cognitive status at discharge: cognitively intact, Behavioral status at discharge: cooperative, Quality Metrics Clinical Quality Measures [ No reported AMI, CVA or VTE this stay] Coding Level of Care Code Acute Code for g Fwd Diagnoses COPD (chronic obstructive pulmonary disease) J44.9 Diastolic CHF I50.30 Atrial fibrillation I48.91 Pulmonary fibrosis J84.10
== END 2023-02-09 12:09 | disposition home health service (06) | DRG 190 ==
LOC: ER 18:57 → ICU 18:58
PROVIDERS: Internal Medicine; Admitting Provider Internal Medicine; Emergency Provider Family Medicine; PCP Family Medicine; Visit Provider Internal Medicine
DX: J43.2 Centrilobular emphysema (principal); G93.41 Metabolic encephalopathy; J96.21 Acute and chronic respiratory failure with hypoxia; J96.22 Acute and chronic respiratory failure with hypercapnia; I50.33 Acute on chronic diastolic (congestive) heart failure; E46 Unspecified protein-calorie malnutrition; Z68.1 Body mass index [BMI] 19.9 or less, adult; Z99.81 Dependence on supplemental oxygen; Z77.22 Contact with and (suspected) exposure to environmental tobacco smoke (acute) (chronic); Z87.891 Personal history of nicotine dependence; Z99.89 Dependence on other enabling machines and devices; M19.90 Unspecified osteoarthritis, unspecified site; M81.0 Age-related osteoporosis without current pathological fracture; I48.0 Paroxysmal atrial fibrillation; J84.10 Pulmonary fibrosis, unspecified; Z79.82 Long term (current) use of aspirin; Z79.52 Long term (current) use of systemic steroids; R00.0 Tachycardia, unspecified; M62.58 Muscle wasting and atrophy, not elsewhere classified, other site
CPT/HCPCS: 36415; 36600; 51702; 71045; 80048; 80051; 80053; 82330; 82803; 82805; 83036; 83735; 83880; 84100; 84145; 84443; 85025; 85378; 87070; 87077; 87186; 87205; 87641; 93005; 93308; 94640; 94660; 94760; 96372; 96374; 96376; 99291; J1100; J1644; J1940; J7614; J7626; J7644; Q0144

== ENCOUNTER → 2023-02-25 13:34 | Outpatient (BNVA) | payer MEDICARE, MEDICAID, SELFPAY | PROVIDERS: PCP Family Medicine; Visit Provider Internal Medicine Pulmonary Disease | DX: J44.1 Chronic obstructive pulmonary disease with (acute) exacerbation (principal); J96.11 Chronic respiratory failure with hypoxia; J96.12 Chronic respiratory failure with hypercapnia; R91.1 Solitary pulmonary nodule; Z87.891 Personal history of nicotine dependence; Z99.81 Dependence on supplemental oxygen | CPT/HCPCS: 99214 ==

== ENCOUNTER 2023-02-27 18:10 | Emergency (ER) | payer MEDICARE, MEDICAID, SELFPAY ==
[2023-02-27 18:21] VITALS: BP 119/70; PULSE 110; RESP 18; TEMP 36.7; O2SAT 96
[2023-02-27 18:24] VITALS: BP 119/70; PULSE 95; RESP 21; O2SAT 95
--- NOTE | 2023-02-27 18:27 | XRR_ITS ---
PROCEDURE INFORMATION: Exam: XR Chest Exam date and time: 02/27/2023 6:32 PM Age: 73 years old Clinical indication: Shortness of breath; TECHNIQUE: Imaging protocol: Radiologic exam of the chest. Views: 1 view. COMPARISON: CR (CHEST, ) 02/07/2023 6:15 PM FINDINGS: Lungs: Scarring and bullous changes at the lung apices appears similar to the prior study. There is chronic blunting of the costophrenic angles likely representing pleural thickening or hyperexpansion. No definite large pleural effusion. COPD morphology of the chest with interstitial thickening, similar to the prior study. Pleural spaces: See Lungs finding. Heart/Mediastinum: Unremarkable. No cardiomegaly. Bones/joints: Generalized osteopenia with vertebroplasty changes in the lower thoracic spine. XR/XR chest 1V portable [id number] IMPRESSION: No evidence for acute cardiopulmonary disease. There are changes consistent with COPD similar to the prior study.
[2023-02-27 20:30] LABS: Basophils % 0.3 %; Eosinophils % 0.6 %; Hematocrit 39.2 % (37.0-47.0); Hemoglobin 11.5 g/dL (11.5-15.3); Lymphocytes # 0.4 10^3/uL (0.8-4.8); Lymphocytes % 5.9 %; Mean Corpuscular HGB Conc 29.3 g/dL (30.0-36.0); Mean Corpuscular Hemoglobin 28.3 pg (28.0-34.0); Mean Corpuscular Volume 96.6 fl (81-99); Mean Platelet Volume 9.3 fL (7.4-10.4); Monocytes # 0.2 10^3/uL (0.2-0.9); Monocytes % 3.7 %; Neutrophils # 5.71 10^3/uL (1.8-7.7); Neutrophils % 89.2 %; Nucleated Red Blood Cells % 0 %; Platelet Count 237 10^3/cmm (130-400); Red Blood Count 4.06 10^6/uL (4.1-5.3); Red Cell Distribution Width 15.4 % (12.1-15.1); White Blood Count 6.4 10^3/uL (4.0-10.0)
[2023-02-27 20:59] LABS: Alanine Aminotransferase 7 U/L (0-33); Albumin Level 3.3 g/dL (3.5-5.2); Alkaline Phosphatase 52 U/L (35-105); Anion Gap 10.2 (5-19); Aspartate Amino Transferase 9 U/L (0-32); Blood Urea Nitrogen 12 mg/dL (8-23); Carbon Dioxide 38 mmol/L (22-29); Chloride 95 mmol/L (98-107); Globulin 3.3 g/dL (1.3-4.6); Glucose 93 mg/dL (65-115); Osmolality Calculated 285 mOsm/kg (285-295); Potassium 5.2 mmol/L (3.5-5.1); Sodium 138 mmol/L (136-145); Total Bilirubin 0.2 mg/dL (0.15-1.2); Total Protein 6.6 g/dL (6.6-8.7)
--- NOTE | 2023-02-27 21:20 | ED_ITS ---
HPI - SOB/Dyspnea General: Chief Complaint: Shortness of Breath/Dyspnea Stated Complaint: SOB Time Seen by Provider: 02/27/23 18:18 History of Present Illness: HPI Narrative: 73-year-old female with extensive history including COPD presents emergency room with shortness of breath. Brought to emergency room by EMS and was given DuoNeb and steroid route. Upon present emergency room patient was more comfortable and was 3 L of oxygen. She has any cough, chest pain, fever or chills. No sick contact or recent foreign travel. Patient was recently admitted. And currently on 2 different antibiotics Associated symptoms: Deny chest congestion or hemoptysis Review of Systems General: Reports: 10 or more systems reviewed and unremarkable except in HPI and below Resp: Reports: dyspnea and wheezing; Denies: productive cough, non-productive cough, hemoptysis or chest congestion PFS ED PFSH: Medical History (Updated 02/27/23 @ 21:47 by Milli Mcnair MD) Acute exacerbation of chronic obstructive airways disease Acute exacerbation of chronic obstructive airways disease Acute hypercapnic respiratory failure Acute on chronic respiratory failure with hypoxia and hypercapnia Acute on chronic respiratory failure with hypoxia and hypercapnia Atrial fibrillation transient, during acute COPD exacerbation in 2019 Back pain Chest pain Chronic obstructive pulmonary emphysema Chronic respiratory failure with hypoxia and hypercapnia COPD (chronic obstructive pulmonary disease) Diastolic CHF History of echocardiogram 08/2019 EF 65%, grade I/IV diastolic dysfunction, PAP within normal limits History of PFTs 10/2019 severe airflow obstruction, FEV1/FVC of 33%, FEV1 0.57 L 29% predi cted, FVC 1.76 L 71% predicted, TLC 107%, RV 163%, reduced DLCO at 25% Hyperkalemia Mass of upper lobe of left lung cavitary appearance, never biopsied due to risk of complication and non- surgical candidate, has been stable on imaging On home oxygen therapy 2-3 L BNC at baseline Osteoarthritis Osteoporosis Paroxysmal A-fib Personal history of nicotine dependence quit in 2019, but still with 2nd hand exposure Pseudomonas aeruginosa colonization Pulmonary fibrosis Pulmonary nodule left lower lobe Seasonal allergies Uses bilevel positive airway pressure (BPAP) ventilation at home trilogy, via [facility] Surgical History History of kyphoplasty (2014) L1, L2, L3, L5 performed by Dr. Roman Marquez Family History Mother CAD (coronary artery disease) Social History Smoking and tobacco status: former smoker Quit status (tobacco): has quit using tobacco Year quit tobacco: 2019 - 1PPD x 50 Years Second hand smoke exposure: Yes Alcohol intake: never Substance/Drug Use: never Lives independently: Yes Household members: none Marital status: Current occupational status: retired Do you think of yourself as: Straight/Heterosexual Current gender identity: Female Physical Exam Const: COMMON NORMALS: no acute distress, average body habitus, patient oriented x3, no limitations, healthy appearing, alert and well nourished Neck/C-Spine: COMMON NORMALS: no JVD Chest: COMMONS NORMALS: normal inspection of the chest, normal palpation of entire chest wall, normal inspection of the breasts and normal palpation of the breasts Breast/axilla inspection: Yes normal inspection of the breasts BREAST/AXILLA PALPATION: Yes normal palpation of the breasts Resp: EFFORT & INSPECTION: Yes able to speak in complete sentences, No tachypneic, No respiratory distress and No labored AUSCULTATION: wheezes and diminished lung sounds Cardio: COMMON NORMALS: no JVD, regular rate, regular rhythm, S1 normal heart sound present, S2 normal heart sound present, No gallops present (Cardio), No clicks present (Cardio), No murmurs present (Cardio), No rub (Cardio) and Peripheral pulses 2+ throughout RATE: regular rate RHYTHM: regular rhythm HEART SOUNDS: S1 normal heart sound present and S2 normal heart sound present PERIPHERAL PULSES: Peripheral pulses 2+ throughout Extremity: COMMON NORMALS: normal to inspection, full ROM, capillary refill normal, no joint enlargement, no clubbing, cyanosis or edema, no calf tenderness and no pedal edema Neuro: COMMON NORMALS: patient oriented x3 SENSORIUM/ORIENTATION: Yes alert Course Vital Signs: Vital signs: Vital Signs Temperature 98.0 F 02/27/23 18:21 Pulse Rate 95 02/27/23 18:24 Respiratory Rate 21 H 02/27/23 18:24 Blood Pressure 119/70 02/27/23 18:24 Pulse Oximetry 95 02/27/23 18:24 Oxygen Delivery Me thod Nasal Cannula 02/27/23 18:21 Oxygen Flow Rate 4 02/27/23 18:21 MDM - SOB/Dyspnea Medical Decision Making She was made comfortable emergency room. Patient monitored. Given her history I do recommend admission for further evaluation and treatment but patient would like to be discharged home. He was satting about 94% on 3 L of oxygen. Patient was told to continue oxygen as needed and recommended. Differential Diagnosis Likely acute exacerbation of chronic obstructive airways disease, congestive heart failure, community acquired pneumonia, asthma with exacerbation and pulmonary embolism Lab Data 02/27/23 20:19 02/27/23 20:19 Labs/Radiology: Radiology Impressions Chest X-Ray 02/27/23 18:27 IMPRESSION: No evidence for acute cardiopulmonary disease. There are changes consistent with COPD similar to the prior study. Laboratory Results WBC 6.4 10^3/uL (4.0-10.0) 02/27/23 20:19 RBC 4.06 10^6/uL (4.1-5.3) L 02/27/23 20:19 Hgb 11.5 g/dL (11.5-15.3) 02/27/23 20:19 Hct 39.2 % (37.0-47.0) 02/27/23 20:19 MCV 96.6 fl (81-99) 02/27/23 20:19 MCH 28.3 pg (28.0-34.0) 02/27/23 20:19 MCHC 29.3 g/dL (30.0-36.0) L 02/27/23 20:19 RDW 15.4 % (12.1-15.1) H 02/27/23 20:19 Plt Count 237 10^3/cmm (130-400) 02/27/23 20:19 MPV 9.3 fL (7.4-10.4) 02/27/23 20: Neut % (Auto) 89.2 % 02/27/23 20: Lymph % (Auto) 5.9 % 02/27/23 20:19 Shannon % (Auto) 3.7 % 02/27/23 20:19 Eos % (Auto) 0.6 % 02/27/23 20:19 Baso % (Auto) 0.3 % 02/27/23: Neut # (Auto) 5.71 10^3/uL (1.8-7.7) 02/27/23 20:19 Lymph # (Auto) 0.4 10^3/uL (0.8-4.8) L 02/27/23 20:19 [place] # (Auto) 0.2 10^3/uL (0.2-0.9) 02/27/23 20:19 Eos # (Auto) 0.0 10^3/uL (0.0-0.8) 02/27/23 20:19 Baso # (Auto) 0.0 10^3/uL (0.0-0.1) 02/27/23 20:19 Nucleated RBC % (auto) 0 % 02/27/23 20:19 Nucleated RBCs # 0.0 /100WBC 02/27/23 20:19 Sodium 138 mmol/L (136-145) 02/27/23 20:19 Potassium 5.2 mmol/L (3.5-5.1) H 02/27/23 20:19 Chloride 95 mmol/L (98-107) L 02/27/23 20:19 Carbon Dioxide 38 mmol/L (22-29) H 02/27/23 20:19 Anion Gap 10.2 (5-19) 02/27/23 20:19 BUN 12 mg/dL (8-23) 02/27/23 20:19 Creatinine 0.3 mg/dL (0.5-0.9) L 02/27/23 20:19 GFR Calculation Not Reportable 02/27/23 20:19 Glucose 93 mg/dL (65-115) 02/27/23 20:19 Calculated Osmolality 285 mOsm/kg (285-295) 02/27/23 20:19 Calcium 10.0 mg/dL (8.5-10.5) 02/27/23 20:19 Total Bilirubin 0.2 mg/dL (0.15-1.2) 02/27/23 20:19 AST 9 U/L (0-32) 02/27/23 20:19 ALT 7 U/L (0-33) 02/27/23 20:19 Alkaline Phosphatase 52 U/L (35-105) 02/27/23 20:19 Total Protein 6.6 g/dL (6.6-8.7) 02/27/23 20:19 Albumin 3.3 g/dL (3.5-5.2) L 02/27/23 20:19 Globulin 3.3 g/dL (1.3-4.6) 02/27/23 20:19 Imaging Data CXR: My impression: Chest x-ray no obvious infiltrate but showed changes consistent with COPD Discharge Plan Discharge Patient Disposition: Home Clinical Impression: Breath shortness, COPD (chronic obstructive pulmonary disease) Condition: Stable Prescriptions: No Action azithromycin 250 mg tablet 250 mg PO .3 times weekly Qty: 36 3RF Rx Instructions: Take 1 tab (250mg) on Mondays, Wednesdays, and Fridays (DME) oxygen small bottle See Rx Instructions .Route .MEDSUPPLY Qty: 1 0RF Rx Instructions: switch condensor to small tank levofloxacin 500 mg tablet 500 mg PO DAILY Qty: 7 0RF budesonide 0.5 mg/2 mL suspension for nebulization 0.5 mg inhalation BID Qty: 60 6RF formoterol fumarate [Perforomist] 20 mcg/2 mL solution for nebulization 2 ml inhalation BID Qty: 120 6RF Yupelri 175 mcg/3 mL solution for nebulization 175 mcg inhalation DAILY Qty: 90 6RF celecoxib 200 mg capsule 200 mg PO BID Qty: 180 1RF levocetirizine 5 mg tablet 5 mg PO DAILY Qty: 30 5RF metoprolol tartrate 25 mg tablet 25 mg PO BID Qty: 60 3RF albuterol sulfate [Ventolin HFA] 90 mcg/actuation HFA aerosol inhaler 1 puff INHALATION TID PRN (Reason: Shortness Of Breath) Qty: 18 3RF pantoprazole 40 mg tablet,delayed release (DR/EC) 40 mg PO DAILY Vitamin D3 25 mcg (1,000 unit) Tablet 1,000 unit PO DAILY ipratropium-albuterol 0.5 mg-3 mg(2.5 mg base)/3 mL solution for nebulization 3 ml INHALATION TID roflumilast 500 mcg Tablet 500 mcg PO DAILY Qty: 90 0RF Medrol (Rui) 4 mg tablets,dose pack See Rx Instructions .ROUTE .COMPLEX Qty: 21 0RF Rx Instructions: orally per package directions Lasix 20 mg tablet 20 mg PO DAILY PRN (Reason: edema) Qty: 60 0RF Rx Instructions: Take potassium with Lasix potassium chloride 20 mEq tablet extended release 20 meq PO DAILY PRN (Reason: Only with Lasix) Qty: 60 0RF Rx Instructions: Only with Lasix Lumigan 0.01 % drops 1 drp ophthalmic (eye) BEDTIME Rx Instructions: both eyes diltiazem HCl 30 mg Tablet 30 mg PO TID Qty: 90 0RF Discharge Orders: Discharge ED (Routine); Ordered 02/27/23 Ordered By: Milli Mcnair Referrals: Norman Lazo MD [Primary Care Provider] - Patient Instructions: Opioid Safety, Pain Management Coding Level of Care Code ED Ware Dresser for Jihan Jimenes
== END 2023-02-27 21:25 | disposition home or self-care (01) ==
PROVIDERS: Emergency Provider Family Medicine; PCP Family Medicine
DX: J44.9 Chronic obstructive pulmonary disease, unspecified (principal); Z99.81 Dependence on supplemental oxygen; Z87.891 Personal history of nicotine dependence; I50.9 Heart failure, unspecified
CPT/HCPCS: 36415; 71045; 80053; 85025; 99284

== ENCOUNTER 2023-03-02 20:57 | Inpatient (IN) | payer MEDICARE, MEDICAID, SELFPAY ==
--- NOTE | 2023-03-02 20:58 | XRR_ITS ---
PROCEDURE INFORMATION: Exam: XR Chest Exam date and time: 03/02/2023 9:16 PM Age: 73 years old Clinical indication: Shortness of breath; Additional info: SOB TECHNIQUE: Imaging protocol: Radiologic exam of the chest. Views: 1 view. COMPARISON: CR (CHEST, ) 02/27/2023 6:32 PM FINDINGS: Lungs: Stable biapical pleuroparenchymal fibrosis. Emphysematous changes. Pleural spaces: Unremarkable. No pleural effusion. No pneumothorax. Heart/Mediastinum: Unremarkable. No cardiomegaly. Bones/joints: Unremarkable. XR/XR chest 1V portable [id number] IMPRESSION: 1. Stable biapical pleuroparenchymal fibrosis. 2. Emphysematous changes.
[2023-03-02 21:03] VITALS: BP 110/51; PULSE 89; RESP 26; TEMP 36.6; O2SAT 99; BMI 14.8
--- NOTE | 2023-03-02 21:03 | ED_ITS ---
HPI - SOB/Dyspnea General: Chief Complaint: Shortness of Breath/Dyspnea Stated Complaint: RESP. DISTRESS Time Seen by Provider: 03/02/23 20:57 Source: patient and EMS Mode of arrival: EMS Limitations: no limitations History of Present Illness: HPI Narrative: 73-year-old female is very well-known she has a long history of COPD she is on 2 L oxygen at baseline she states that started having some shortness of breath denies any EMS was called they state when they arrived she had wheezing they have given her breathing treatment in route. She states she is feeling improved she denies any cough denies any fever denies any chest pain. Associated symptoms: Deny abdominal pain, chest pain, fever(s), nausea or vomiting Review of Systems Const: Denies: fever(s) or chills ENMT: Denies: throat pain or dental pain Card: Denies: chest pain Resp: Reports: dyspnea GI: Denies: abdominal pain, nausea, vomiting or diarrhea : Denies: dysuria Musc: Denies: neck pain or back pain Skin/Breast: Denies: rash Neuro: Denies: headache(s) PFSH ED PFSH: Medical History Acute exacerbation of chronic obstructive airways disease Acute exacerbation of chronic obstructive airways disease Acute hypercapnic respiratory failure Acute on chronic respiratory failure with hypoxia and hypercapnia Acute on chronic respiratory failure with hypoxia and hypercapnia Atrial fibrillation transient, during acute COPD exacerbation in 2019 Back pain Chest pain Chronic obstructive pulmonary emphysema Chronic respiratory failure with hypoxia and hypercapnia COPD (chronic obstructive pulmonary disease) Diastolic CHF History of echocardiogram 08/2019 EF 65%, grade I/IV diastolic dysfunction, PAP within normal limits History of PFTs 10/2019 severe airflow obstruction, FEV1/FVC of 33%, FEV1 0.57 L 29% predicted, FVC 1.76 L 71% predicted, TLC 107%, RV 163%, reduced DLCO at 25% Hyperkalemia Mass of upper lobe of left lung cavitary appearance, never biopsied due to risk of complication and non- surgical candidate, has been stable on imaging On home oxygen therapy 2-3 L BNC at baseline Osteoarthritis Osteoporosis Paroxysmal A-fib Personal history of nicotine dependence quit in 2019, but still with 2nd hand exposure Pseudomonas aeruginosa colonization Pulmonary fibrosis Pulmonary nodule left lower lobe Seasonal allergies Uses bilevel positive airway pressure ([facility]AP) [facility] History History of kyphoplasty (2015) L1, L2, L3, L5 performed by Dr. Roman Marquez Family History Mother CAD (coronary artery disease) Social History Smoking and tobacco status: former smoker Quit status (tobacco): has quit using tobacco Year quit tobacco: 2019 - 1PPD x 50 Years Second hand smoke exposure: Yes Alcohol intake: never Substance/Drug Use: never Lives independently: Yes Household members: none Marital status: Current occupational status: retired Do you think of yourself as: Straight/Heterosexual Current gender identity: Female Physical Exam Const: COMMON NORMALS: patient oriented x3 and healthy appearing HENMT: COMMON NORMALS: normocephalic and atraumatic HEAD & SCALP: normocephalic and atraumatic Neck/C-Spine: COMMON NORMALS: full ROM and supple Chest: COMMONS NORMALS: normal inspection of the chest and normal palpation of entire chest wall Resp: COMMON NORMALS: No retractions and No use of accessory muscles EFFORT & INSPECTION: Yes respiratory distress AUSCULTATION: wheezes Cardio: COMMON NORMALS: regular rate, regular rhythm and No murmurs present (Cardio) RATE: regular rate RHYTHM: regular rhythm GI: COMMON NORMALS: Normal to inspection, nondistended, normoactive bowel sounds present, Soft to palpation, non-tender and no masses PALPATION: Yes Soft to palpation Extremity: COMMON NORMALS: normal to inspection and full ROM Neuro: COMMON NORMALS: patient oriented x3, moves all extremities and no focal motor deficits Psych: COMMON NORMALS: mental status grossly normal, Normal thought process present and cooperative THOUGHT PROCESS: Normal thought process present Skin: COMMON NORMALS: no rashes or lesions noted and no wounds GENERAL SKIN EXAM: no rashes or lesions noted Course Vital Signs: Vital signs: Vital Signs Temperature 97.9 F 03/02/23 21:03 Pulse Rate 101 H 03/02/23 21:30 Respiratory Rate 29 H 03/02/23 21:30 Blood Pressure 99/66 03/02/23 21:30 Pulse Oximetry 100 03/02/23 21:35 Oxygen Delivery Me thod Nasal Cannula 03/02/23 21:03 Fraction of Inspir ed Oxygen 35 03/02/23 21:35 MDM - SOB/Dyspnea Medical Decision Making Patient presents for COPD exacerbation she is hypoxic along with hypercapnia she is started on BiPAP no signs of pneumonia spoke to the hospitalist will admit at this time. Lab Data 03/02/23 21:12 03/02/23 21:12 Labs/Radiology: Radiology Impressions Chest X-Ray 03/02/23 20:58 IMPRESSION: 1. Stable biapical pleuroparenchymal fibrosis. 2. Emphysematous changes. Laboratory Results WBC 7.7 10^3/uL (4.0-10.0) 03/02/23 21:12 RBC 4.07 10^6/uL (4.1-5.3) L 03/02/23 21:12 Hgb 11.5 g/dL (11.5-15.3) 03/02/23 21:12 Hct 39.1 % (37.0-47.0) 03/02/23 21:12 MCV 96.1 fl (81-99) 03/02/23 21:12 MCH 28.3 pg (28.0-34.0) 03/02/23 21:12 MCHC 29.4 g/dL (30.0-36.0) L 03/02/23 21:12 RDW 15.4 % (12.1-15.1) H 03/02/23 21:12 Plt Count 338 10^3/cmm (130-400) 03/02/23 21:12 MPV 9.0 fL (7.4-10.4) 03/02/23 21:12 Neut % (Auto) 66.0 % 03/02/23 21:12 Lymph % (Auto) 16.4 % 03/02/23 21:12 Gilliam % (Auto) 15.8 % 03/02/23 21:12 Eos % (Auto) 1.0 % 03/02/23 21:12 Baso % (Auto) 0.3 % 03/02/23 21:12 Neut # (Auto) 5.06 10^3/uL (1.8-7.7) 03/02/23 21:12 Lymph # (Auto) 1.3 10^3/uL (0.8-4.8) 03/02/23 21:12 Gilliam # (Auto) 1.2 10^3/uL (0.2-0.9) H 03/02/23 21:12 Eos # (Auto) 0.1 10^3/uL (0.0-0.8) 03/02/23 21:12 Baso # (Auto) 0.0 10^3/uL (0.0-0.1) 03/02/23 21:12 Nucleated RBC % (auto) 0 % 03/02/23 21:12 Nucleated RBCs # 0.0 /100WBC 03/02/23 21:12 PT 12.60 SECONDS (12.1-14.9) 03/02/23 21:12 INR 0.92 (0.8-1.2) 03/02/23 21:12 Specimen Type Arterial 03/02/23 20:58 ABG pH 7.30 (7.35-7.45) L 03/02/23 20:58 ABG pCO2 90.9 mmHg (35-45) H* 03/02/23 20:58 ABG pO2 229.0 mmHg (80.0-100.0) H 03/02/23 20:58 ABG HCO3 44.3 mmol/L (22-26) H 03/02/23 20:58 ABG Base Excess 14.4 mmol/L (-2.0-2.0) H 03/02/23 20:58 Nikolas Test Pos 03/02/23 20:58 Hematocrit 34.3 % (37-47) L 03/02/23 20:58 Hgb O2 Saturation 97.7 % (95-100) 03/02/23 20:58 Carboxyhemoglobin 2.0 %THgb (0.4-20.1) 03/02/23 20:58 Methemoglobin 0.8 % (0.4-1.5) 03/02/23 20:58 Total Hemoglobin 11.2 g/dL (12-16) L 03/02/23 20:58 O2 Delivery Device Nc 03/02/23 20:58 O2 Liters/Min 6.0 % 03/02/23 20:58 Field Marketing Specialist ID Anonymous 03/02/23 20:58 Sodium 138 mmol/L (136-145) 03/02/23 21:12 Potassium 5.1 mmol/L (3.5-5.1) 03/02/23 21:12 Chloride 92 mmol/L (98-107) L 03/02/23 21:12 Carbon Dioxide 40 mmol/L (22-29) H 03/02/23 21:12 Anion Gap 11.1 (5-19) 03/02/23 21:12 BUN 20 mg/dL (8-23) 03/02/23 21:12 Creatinine 0.4 mg/dL (0.5-0.9) L 03/02/23 21:12 GFR Calculation Not Reportable 03/02/23 21:12 Glucose 114 mg/dL (65-115) 03/02/23 21:12 Calculated Osmolality 289 mOsm/kg (285-295) 03/02/23 21:12 Calcium 10.1 mg/dL (8.5-10.5) 03/02/23 21:12 Total Bilirubin 0.2 mg/dL (0.15-1.2) 03/02/23 21:12 AST 20 U/L (0-32) 03/02/23 21:12 ALT 9 U/L (0-33) 03/02/23 21:12 Alkaline Phosphatase 49 U/L (35-105) 03/02/23 21:12 NT-Pro-B Natriuret Pep 729 pg/mL (0-125) H 03/02/23 21:12 Total Protein 6.8 g/dL (6.6-8.7) 03/02/23 21:12 Albumin 3.5 g/dL (3.5-5.2) 03/02/23 21:12 Globulin 3.3 g/dL (1.3-4.6) 03/02/23 21:12 Critical Care Time Critical Care Time: Critical Care Time: Yes Total Critical Care Time: 45 Attestation: The high probability of a clinically significant, sudden or life threatening deterioration of the patient's resp system(s) required my full and direct attention, intervention and personal management. The critical care time is as shown. This time is in addition to time spent performing any reported procedures but includes the following: [x] Data and vital sign review and interpretation [x] Patient assessment, examination and intervention [x] Documentation [x] Medication orders and management Discharge Plan Discharge Patient Disposition: Admitted As Inpatient Clinical Impression: Acute exacerbation of chronic obstructive airways disease, Respiratory failure with hypoxia and hypercapnia Condition: Stable Prescriptions: No Action azithromycin 250 mg tablet 250 mg PO .3 times weekly Qty: 36 3RF Rx Instructions: Take 1 tab (250mg) on Mondays, Wednesdays, and Fridays (DME) oxygen small bottle See Rx Instructions .Route .MEDSUPPLY Qty: 1 0RF Rx Instructions: switch condensor to small tank levofloxacin 500 mg tablet 500 mg PO DAILY Qty: 7 0RF budesonide 0.5 mg/2 mL suspension for nebulization 0.5 mg inhalation BID Qty: 60 6RF formoterol fumarate [Perforomist] 20 mcg/2 mL solution for nebulization 2 ml inhalation BID Qty: 120 6RF Yupelri 175 mcg/3 mL solution for nebulization 175 mcg inhalation DAILY Qty: 90 6RF celecoxib 200 mg capsule 200 mg PO BID Qty: 180 1RF levocetirizine 5 mg tablet 5 mg PO DAILY Qty: 30 5RF metoprolol tartrate 25 mg tablet 25 mg PO BID Qty: 60 3RF albuterol sulfate [Ventolin HFA] 90 mcg/actuation HFA aerosol inhaler 1 puff INHALATION TID PRN (Reason: Shortness Of Breath) Qty: 18 3RF pantoprazole 40 mg tablet,delayed release (DR/EC) 40 mg PO DAILY Vitamin D3 25 mcg (1,000 unit) Tablet 1,000 unit PO DAILY ipratropium-albuterol 0.5 mg-3 mg(2.5 mg base)/3 mL solution for nebulization 3 ml INHALATION TID roflumilast 500 mcg Tablet 500 mcg PO DAILY Qty: 90 0RF Medrol (Rui) 4 mg tablets,dose pack See Rx Instructions .ROUTE .COMPLEX Qty: 21 0RF Rx Instructions: orally per package directions Lasix 20 mg tablet 20 mg PO DAILY PRN (Reason: edema) Qty: 60 0RF Rx Instructions: Take potassium with Lasix potassium chloride 20 mEq tablet extended release 20 meq PO DAILY PRN (Reason: Only with Lasix) Qty: 60 0RF Rx Instructions: Only with Lasix Lumigan 0.01 % drops 1 drp ophthalmic (eye) BEDTIME Rx Instructions: both eyes diltiazem HCl 30 mg Tablet 30 mg PO TID Qty: 90 0RF Referrals: Lazo,Norman Matias, MD [Primary Care Provider] - Coding Level of Care Code 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
--- NOTE | 2023-03-02 21:05 | ECG_ITS ---
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 Measurements Intervals [place] Rate: 98 P: 0 [place]: 0 QRS: 91 QRSD: 85 T: 76 QT: 323 QTc: 413 Interpretive Statements SINUS TACHYCARDIA WITH FREQURNT PACs BORDERLINE RIGHT AXIS DEVIATION [QRS AXIS > 90] EARLY REPOLARIZATION [ST ELEVATION WITH NORMALLY INFLECTED T-WAVE] Compared to ECG 02/08/2023 10:11:53 Early repolarization now present Sinus tachycardia no longer present Electronically Signed On 03-03-2023 10:21:22 CDT by Varsha Hensley M.D. [id number]
[2023-03-02 21:16] LABS: Arterial Blood Gas Hematocrit 34.3 % (37-47); Base Excess ABG 14.4 mmol/L (-2.0-2.0); Blood Gas Allen Test Pos; Blood Gas Sample Type Arterial; HCO3 ABG 44.3 mmol/L (22-26); HGB O2 Sat 97.7 % (95-100); Methemoglobin 0.8 % (0.4-1.5); Oxygen Device NC; Total Hemoglobin 11.2 g/dL (12-16)
[2023-03-02 21:17] LABS: Basophils % 0.3 %; Eosinophils # 0.1 10^3/uL (0.0-0.8); Hematocrit 39.1 % (37.0-47.0); Hemoglobin 11.5 g/dL (11.5-15.3); Lymphocytes # 1.3 10^3/uL (0.8-4.8); Lymphocytes % 16.4 %; Mean Corpuscular HGB Conc 29.4 g/dL (30.0-36.0); Mean Corpuscular Hemoglobin 28.3 pg (28.0-34.0); Mean Corpuscular Volume 96.1 fl (81-99); Monocytes # 1.2 10^3/uL (0.2-0.9); Monocytes % 15.8 %; Neutrophils # 5.06 10^3/uL (1.8-7.7); Nucleated Red Blood Cells % 0 %; Platelet Count 338 10^3/cmm (130-400); Red Blood Count 4.07 10^6/uL (4.1-5.3); Red Cell Distribution Width 15.4 % (12.1-15.1); White Blood Count 7.7 10^3/uL (4.0-10.0)
[2023-03-02 21:25] VITALS: BP 110/51; PULSE 98; RESP 23; O2SAT 100
[2023-03-02] MEDS: dexamethasone 10 mg/mL INJ IVP (21:25)
[2023-03-02 21:30] VITALS: BP 99/66; PULSE 101; RESP 29; O2SAT 100
[2023-03-02 21:35] VITALS: RESP 20; O2SAT 100
[2023-03-02 21:38] LABS: INR 0.92 (0.8-1.2)
[2023-03-02 21:53] LABS: Albumin Level 3.5 g/dL (3.5-5.2); Alkaline Phosphatase 49 U/L (35-105); Blood Urea Nitrogen 20 mg/dL (8-23); Calcium 10.1 mg/dL (8.5-10.5); Carbon Dioxide 40 mmol/L (22-29); Chloride 92 mmol/L (98-107); Globulin 3.3 g/dL (1.3-4.6); Glucose 114 mg/dL (65-115); NT Pro B Type Natriuretic Pept 729 pg/mL (0-125); Osmolality Calculated 289 mOsm/kg (285-295); Sodium 138 mmol/L (136-145); Total Bilirubin 0.2 mg/dL (0.15-1.2); Total Protein 6.8 g/dL (6.6-8.7)
[2023-03-02 21:57] LABS: Anion Gap 11.1 (5-19); Potassium 5.1 mmol/L (3.5-5.1)
[2023-03-02 21:58] LABS: Alanine Aminotransferase 9 U/L (0-33); Aspartate Amino Transferase 20 U/L (0-32)
[2023-03-02 22:00] VITALS: BP 87/54; PULSE 101; RESP 28; O2SAT 98
--- NOTE | 2023-03-02 22:24 | P.HP_ITS ---
Providers/Chief Complaint Admitting Physician: Aime Magaña MD Primary Care Provider: Norman Lazo MD Chief Complaint: RESP. DISTRESS History of Present Illness Marie Hull is a 73 year old female with known chronic lung disease on 2 L of oxygen during the day and 3 L at night presents with increasing shortness of breath. She states this has been going for quite a while. She was seen in the pulmonary clinic on February 25, for follow-up after discharge from the hospital on February 09. At that time she was diagnosed with acute COPD exacerbation and given Levaquin for 7 days, interrupting her usual azithromycin. She was seen in the ER on the , and from their record admission was suggested but refused. She continued to worsen and presented today. She states her sputum is productive. She denies any blood. She has not noticed any fevers. She does feel weak. She typically uses her trilogy at night and has been compliant with this. No vomiting. No chest discomfort. I believe she has recently taken a course of prednisone as well but medicine list is not yet reconciled. She received a breathing treatment in route, and dexamethasone in the emergency department. Review of Systems General: Reports: 10 or more systems reviewed and unremarkable except in HPI and below Card: Denies: chest pain Resp: Reports: dyspnea and productive cough GI: Denies: abdominal pain, nausea or vomiting Medications/Allergies Home Medications Medication Instructions Recorded Confirmed Last Taken Type celecoxib 200 mg capsule 200 mg PO BID #180 caps 03/03/22 02/25/23 11/22/22 Rx oxygen #1 ea 03/24/22 02/25/23 07/24/22 Rx levocetirizine 5 mg tablet 5 mg PO DAILY #30 tabs 06/15/22 02/25/23 11/22/22 Rx metoprolol tartrate 25 mg tablet 25 mg PO BID #60 tabs 06/18/22 02/25/23 11/22/22 Rx albuterol sulfate 90 mcg/actuation 1 puff inhalation TID PRN 09/14/22 02/25/23 Unknown Rx aerosol inhaler (Ventolin HFA) Shortness Of Breath #18 grams bimatoprost 0.01 % eye drops 1 drp ophthalmic (eye) BEDTIME 10/20/22 02/25/23 11/21/22 History (Neisha) diltiazem HCl 30 mg tablet 30 mg PO TID #90 tabs 10/22/22 02/25/23 11/22/22 Rx azithromycin 250 mg tablet 250 mg PO .3 times weekly COPD #36 01/28/23 02/25/23 Unknown Rx tabs cholecalciferol (vitamin D3) 25 1,000 unit PO DAILY 02/08/23 02/25/23 Unknown H istory mcg (1,000 unit) tablet (Vitamin D3) ipratropium 0.5 mg-albuterol 3 mg 3 ml inhalation TID 02/08/23 02/25/23 Unknown History (2.5 mg base)/3 mL nebulization soln pantoprazole 40 mg tablet,delayed 40 mg PO DAILY 02/08/23 02/25/23 Unknown History release furosemide 20 mg tablet (Lasix) 20 mg PO DAILY PRN edema #60 tabs 02/09/23 02/25/23 Unknown Rx methylprednisolone 4 mg tablets in See Rx Instructions PO .COMPLEX 02/09/23 Unknown Rx a dose pack (VayaFelizrol (Rui)) #21 ea potassium chloride 20 mEq 20 meq PO DAILY PRN Only with 02/09/23 02/25/23 Unkn own Rx tablet,extended release Lasix #60 tabs roflumilast 500 mcg tablet 500 mcg PO DAILY #90 tabs 02/09/23 02/25/23 Unknown Rx budesonide 0.5 mg/2 mL suspension 0.5 mg (2 mL) inhalation BID COPD 02/25/23 02/25/23 Unknown Rx for nebulization J44.9 #60 mL formoterol fumarate 20 mcg/2 mL 2 ml inhalation BID COPD J44.9 02/25/23 02/25/23 Unknown Rx solution for nebulization #120 mL (Perforomist) levofloxacin 500 mg tablet 500 mg PO DAILY #7 tabs 02/25/23 02/25/23 Unknown Rx revefenacin 175 mcg/3 mL solution 175 mcg (3 mL) inhalation DAILY 02/25/23 02/25/23 Unknown Rx for nebulization (Yupeteddyi) COPD J44.9 #90 mL Allergies Allergy/AdvReac Type Severity Reaction Status Date / Time No Known Allergies Allergy Verified 03/02/23 21:08 PFSH Acute PFSH: Medical History Acute exacerbation of chronic obstructive airways disease Acute exacerbation of chronic obstructive airways disease Acute hypercapnic respiratory failure Acute on chronic respiratory failure with hypoxia and hypercapnia Acute on chronic respiratory failure with hypoxia and hypercapnia Atrial fibrillation transient, during acute COPD exacerbation in 2019 Back pain Chest pain Chronic obstructive pulmonary emphysema Chronic respiratory failure with hypoxia and hypercapnia COPD (chronic obstructive pulmonary disease) Diastolic CHF History of echocardiogram 08/2019 EF 65%, grade I/IV diastolic dysfunction, PAP within normal limits History of PFTs 10/2019 severe airflow obstruction, FEV1/FVC of 33%, FEV1 0.57 L 29% predicted, FVC 1.76 L 71% predicted, TLC 107%, RV 163%, reduced DLCO at 25% Hyperkalemia Mass of upper lobe of left lung cavitary appearance, never biopsied due to risk of complication and non- surgical candidate, has been stable on imaging On home oxygen therapy 2-3 L BNC at baseline Osteoarthritis Osteoporosis Paroxysmal A-fib Personal history of nicotine dependence quit in 2018, but still with 2nd hand exposure Pseudomonas aeruginosa colonization Pulmonary fibrosis Pulmonary nodule left lower lobe Seasonal allergies Uses bilevel positive airway pressure (BPAP) ventilation at home trilogy, via [facility] Surgical History History of kyphoplasty (2014) L1, L2, L3, L5 performed by Dr. Roman Marquez Family History Mother CAD (coronary artery disease) Social History Smoking and tobacco status: former smoker Quit status (tobacco): has quit using tobacco Year quit tobacco: 2019 - 1PPD x 50 Years Second hand smoke exposure: Yes Alcohol intake: never Substance/Drug Use: never Lives independently: Yes Household members: none Marital status: Current occupational status: retired Do you think of yourself as: Straight/Heterosexual Current gender identity: Female Vitals/I&O/Wt Last Vital Signs Temp 97.9 F 03/02/23 21:03 Pulse 101 H 03/02/23 21:30 Resp 29 H 03/02/23 21:30 BP 99/66 03/02/23 21:30 Pulse Ox 100 03/02/23 21:35 O2 Del Method Nasal Cannula 03/02/23 21:03 FiO2 35 03/02/23 21:35 Weight last 48 hrs Weight 36.741 kg Physical Exam Narrative: General exam is a white female, currently on BiPAP, alert and cognizant and able to recognize family member. HEENT: Atraumatic and normocephalic. Oropharynx is not examined secondary to BiPAP Neck is supple no lymphadenopathy thyromegaly Cardiovascular slight tachycardia, no murmur Lungs. Breath sounds distant. A few wheezes heard. No rhonchi. Abdomen is soft nontender positive bowel sounds. No obvious organomegaly exam was deferred Extremities no cyanosis, edema, cap refill brisk Skin no rash Neuro no focal deficits. Data 03/02/23 21:12 03/02/23 21:12 Other Labs: Previous sputum culture in January demonstrated pansensitive E. coli. However, other sputum culture in December 2019 demonstrated multiple organisms with fair resistance including Pseudomonas Recent echocardiogram demonstrated preserved EF but was difficult study secondary to body habitus EKG which I reviewed demonstrates sinus rhythm, right axis deviation, a few PACs Chest x-ray which I reviewed demonstrates fibrotic changes in the upper lobes right greater than left, and significant bleb disease on the left. ABG demonstrates pH 7.3, PCO2 of 91, PO2 of 229 LFTs are normal BNP 729(noted to be chronically elevated) Normal calcium and albumin Previous TSH normal A&P Assessment and plan (1) Respiratory failure with hypoxia and hypercapnia: Patient presents with acute on chronic hypoxemic and hypercapnic respiratory failure. She typically uses a noninvasive ventilator at home while sleeping. She appears to be worsened secondary to acute COPD exacerbation. (2) COPD (chronic obstructive pulmonary disease): Patient has evidence of acute COPD exacerbation Continue BiPAP. May need AVAPS settings. If clinically improving do not plan on repeating ABG. DuoNeb every 4 hours Budesonide twice daily She has just completed a course of Levaquin. Her chest x-ray shows significant fibrotic lung disease, and blebs. She has significant productivity of sputum, and has a history of highly resistant organisms. It is very likely she can have significant overgrowth of resistant bacteria. We will initiate meropenem. Sputum culture, MRSA PCR, COVID PCR Dexamethasone, continue with 6 mg IV every 24 hours Wean oxygen and BiPAP as tolerated, but will want to continue this at night No evidence of fluid overload currently Plan Past history of paroxysmal atrial fibrillation. Continue current medications Multiple other medical problems as outlined in past medical history Full code currently Lovenox for DVT prophylaxis Attestations Medical Necessity Statement*: Will require greater than 2 midnight stay for COPD exacerbation associated with respiratory failure requiring BiPAP and this patient with acute on chronic respiratory acidosis Diagnoses Respiratory failure with hypoxia and hypercapnia J96.91; J96.92 COPD (chronic obstructive pulmonary disease) J44.9 Time Spent (min) 50
[2023-03-02] MEDS: sodium chloride 0.9% 500 ML 999 ML IV (22:31)
[2023-03-02 22:57] VITALS: BP 98/52; RESP 18; O2SAT 99
[2023-03-02] MEDS: enoxaparin 40 mg/0.4 mL Syringe SUBCUT (23:11)
[2023-03-03] VITALS (19 sets, daily range): BP systolic 94–116; BP diastolic 44–71; PULSE 86–135; RESP 12–28; TEMP 36.4–37.1; O2SAT 92–100
[2023-03-03 00:39] LABS: Adenovirus Not Detected (NOT DETECT); Chlamydia Pneumoniae Not Detected (NOT DETECT); Coronavirus 229E,HKU1,NL63,OC4 Not Detected (NOT DETECT); Human Metapneumovirus Not Detected (NOT DETECT); Human Rhinovirus/Enterovirus Not Detected (NOT DETECT); Influenza A Not Detected (NOT DETECT); Influenza A H1 Not Detected (NOT DETECT); Influenza A H1-2009 Not Detected (NOT DETECT); Influenza A H3 Not Detected (NOT DETECT); Influenza B Not Detected (NOT DETECT); Mycoplasma Pneumoniae Not Detected (NOT DETECT); Parainfluenza Virus Type 1 Not Detected (NOT DETECT); Parainfluenza Virus Type 2 Not Detected (NOT DETECT); Parainfluenza Virus Type 3 Not Detected (NOT DETECT); Parainfluenza Virus Type 4 Not Detected (NOT DETECT); Respiratory Syncytial Virus A Not Detected (NOT DETECT); Respiratory Syncytial Virus B Not Detected (NOT DETECT); SARS-COV-2 Not Detected (NOT DETECT)
[2023-03-03] MEDS: ipratropium-albuterol 3 mL Neb INHALATION ×3 (01:00→07:42)
[2023-03-03 05:13] LABS: Basophils % 0.2 %; Hematocrit 35.9 % (37.0-47.0); Hemoglobin 10.5 g/dL (11.5-15.3); Lymphocytes # 0.3 10^3/uL (0.8-4.8); Lymphocytes % 6.1 %; Mean Corpuscular HGB Conc 29.2 g/dL (30.0-36.0); Mean Corpuscular Hemoglobin 28.4 pg (28.0-34.0); Mean Platelet Volume 9.3 fL (7.4-10.4); Monocytes % 0.8 %; Neutrophils # 4.71 10^3/uL (1.8-7.7); Neutrophils % 92.3 %; Nucleated Red Blood Cells % 0 %; Platelet Count 301 10^3/cmm (130-400); Red Cell Distribution Width 15.5 % (12.1-15.1); White Blood Count 5.1 10^3/uL (4.0-10.0)
[2023-03-03 05:48] LABS: Anion Gap 11.3 (5-19); Blood Urea Nitrogen 19 mg/dL (8-23); Calcium 9.4 mg/dL (8.5-10.5); Carbon Dioxide 38 mmol/L (22-29); Chloride 95 mmol/L (98-107); Glucose 177 mg/dL (65-115); Osmolality Calculated 295 mOsm/kg (285-295); Potassium 5.3 mmol/L (3.5-5.1); Sodium 139 mmol/L (136-145)
[2023-03-03] MEDS: budesonide 0.5 mg/2 mL Neb INHALATION (07:42)
--- NOTE | 2023-03-03 07:53 | PC.PHAR ---
PT CURRENTLY ONLY USING IPRATROPIUM FOR NEBULIZER DUE TO PHARMACY NOT SENDING THE REST OF HER NEBULIZER SOLUTIONS
[2023-03-03] MEDS: dilTIAZem 30 mg Tablet PO (09:56)
[2023-03-03] MEDS: metoprolol tartrate 25 mg Tablet PO ×2 (09:56→17:54)
[2023-03-03] MEDS: roflumilast 500 mcg Tablet PO (09:56)
[2023-03-03] MEDS: azithromycin 250 mg Tablet PO (09:57)
[2023-03-03] MEDS: pantoprazole DR 40 mg Tablet PO (09:57)
--- NOTE | 2023-03-03 10:54 | ECG_ITS ---
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 Measurements Intervals [place] Rate: 132 P: 0 [place]: 0 QRS: 85 QRSD: 80 T: 78 QT: 263 QTc: 390 Interpretive Statements Sinus tachycardia with frequent PACs ABNORMAL RHYTHM ECG Compared to ECG 03/02/2023 21:05:50 Sinus tachycardia no longer present Early repolarization no longer present Electronically Signed On 03-03-2023 21:12:50 CDT by Rosamaria Blum M.D. [email or web address]/[id number]
[2023-03-03] MEDS: metoprolol tartrate 1 mg/1 mL SDV 5 mL 5 MG IVP (11:24)
[2023-03-03] MEDS: sodium polystyrene sulfonate 15 gm/60 mL Btl PO (11:24)
[2023-03-03 11:53] LABS: Troponin(5th) Baseline 19 ng/L (0-10)
--- NOTE | 2023-03-03 12:33 | PC.NURSE ---
This nurse called [facility] and spoke with Gisella to give report on patient for transfer. Questions answered/addressed at this time.
[2023-03-03] MEDS: enoxaparin 40 mg/0.4 mL Syringe SUBCUT ×2 (13:02→23:44)
--- NOTE | 2023-03-03 13:40 | ECG_ITS ---
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 Measurements Intervals [place] Rate: 115 P: 80 [place]: 120 QRS: 84 QRSD: 90 T: 70 QT: 303 QTc: 419 Interpretive Statements SINUS TACHYCARDIA WITH OCCASIONAL SUPRAVENTRICULAR PREMATURE COMPLEXES ABNORMAL RHYTHM ECG Compared to ECG 03/03/2023 10:54:44 Atrial fibrillation no longer present Electronically Signed On 03-03-2023 21:31:27 CDT by Rosamaria Blum M.D. [id number]
[2023-03-03 14:07] LABS: Troponin 5 2HR 21.62 ng/L (0-10)
[2023-03-03 14:11] LABS: Troponin 5 2HR Delta 2.62 ABS# (0-10)
[2023-03-03] MEDS: dilTIAZem 60 mg Tablet PO ×2 (15:35→21:23)
[2023-03-03] MEDS: ipratropium 0.5 mg/2.5 mL Neb INHALATION (15:42)
[2023-03-03] MEDS: levalbuterol 0.63 mg/3 mL Neb INHALATION (15:42)
--- NOTE | 2023-03-03 15:45 | PC.NURSE ---
received into room 112-2 from med/surg unit,via bed.report had been received.pt is alert and awake and oriented x 4.denies pain at present.st with freq pac's on monitor, with rate 110-120.bp stable.dr trammell notified that pt is now in st...he ordered to hold cardizem drip for now,and to increase cardizem po to 60 mg.this dose was given as ordered.pt oriented to room environment.instructed to notify staff for any pain,sob,dizziness...or for any concerns at all.pt verb understanding.
--- NOTE | 2023-03-03 17:48 | ECG_ITS ---
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 Measurements Intervals [place] Rate: 104 P: 74 [place]: 141 QRS: 83 QRSD: 88 T: 68 QT: 308 QTc: 406 Interpretive Statements SINUS TACHYCARDIA ABNORMAL RHYTHM ECG Compared to ECG 03/03/2023 13:40:55 No significant changes Electronically Signed On 03-03-2023 21:34:08 CDT by Rosamaria Blum M.D. [email or web address] [id number]
[2023-03-03] MEDS: dexamethasone 10 mg/mL INJ 6 MG IVP (17:54)
--- NOTE | 2023-03-03 18:44 | P.PN_ITS ---
Subjective Subjective: - Patient was seen this morning -Patient's daughter is at bedside -Denies any fevers, denies any chills she is off BiPAP -She tells me that when she wakes up in the morning, her O2 sats in the low 80s -During my examination, her heart rates were in the 140s, irregular -She was to receive her metoprolol and Cardizem which was given in front of me -I monitor thereafter heart rate still stayed in the 140s -Telemetry monitoring showed A-fib -EKG obtained showed A-fib -Heart rate still in the 120s to 140s A-fib she complained of shortness of breath, she was given 5 mg IV push metoprolol -Heart rate still in the 120s -Patient will be moved down to the CSU for A-fib with RVR, for Cardizem drip, serial EKGs, surgical scar telemetry monitoring, started on therapeutic Lovenox Vitals/I&O/Wt Last Vital Signs Temp 98.7 F 03/03/23 16:00 Pulse 114 H 03/03/23 16:00 Resp 28 H 03/03/23 16:00 BP 116/68 03/03/23 16:00 Pulse Ox 98 03/03/23 16:00 O2 Del Method Nasal Cannula 03/03/23 16:00 O2 Flow Rate 2 03/03/23 15:38 FiO2 35 03/03/23 16:00 03/03/23 03/03/23 03/03/23 06:59 14:59 22:59 Intake Total 980 / 980 Output Total 375 / 375 Balance 980 / 980 -375 / 605 Weight last 48 hrs Weight 36.741 kg Physical Exam Const: COMMON NORMALS: no acute distress and patient oriented x3 Resp: COMMON NORMALS: normal respiratory effort, No retractions, No use of accessory muscles and clear to auscultation bilaterally AUSCULTATION: clear to auscultation bilaterally Cardio: COMMON NORMALS: S1 normal heart sound present and S2 normal heart sound present RATE: tachycardic RHYTHM: abnormal rhythm irregularly irregular HEART SOUNDS: S1 normal heart sound present and S2 normal heart sound present GI: COMMON NORMALS: Normal to inspection, nondistended, normoactive bowel sounds present and non-tender Extremity: COMMON NORMALS: no pedal edema Neuro: COMMON NORMALS: patient oriented x3 Psych: COMMON NORMALS: mental status grossly normal Data 03/03/23 04:27 03/03/23 04:27 Micro: Microbiology 03/02/23 22:45 MRSA Culture - Final Nose A&P Assessment and plan (1) Respiratory failure with hypoxia and hypercapnia: - Continue home trilogy machine -Monitor respiratory status closely -Continue DuoNeb -Continue budesonide -Continue Decadron -Sputum cultures in the past have grown E. coli, Pseudomonas -Hold off on antibiotic therapy for now, sputum culture (2) COPD (chronic obstructive pulmonary disease): (3) Atrial fibrillation with RVR: - Increase Cardizem to 60 every 6 hours -Continue metoprolol -Therapeutic Lovenox (4) Protein calorie malnutrition: - Consult dietary (5) Physical deconditioning: - PT OT Plan Currently in A-fib with RVR, moved down to CSU status post 5 mg IV push meto prolol start on Cardizem drip monitor respiratory status closely serial troponins, telemetry monitoring Full code currently Lovenox for DVT prophylaxis Attestations Medical Necessity Statement*: Patient requires hospitalization for respiratory failure, A-fib with RVR, requiring transfer to CSU due to A-fib with RVR Coding Level of Care Code Critical Care >/= 30 minutes Critical care time (in minutes): 40 The high probability of a clinically significant, sudden or life threatening deterioration, as referenced in this documentation, required my full and direct attention, intervention and personal management. The critical care time shown is in addition to time spent performing any reported separately billable procedures and includes the following: [x] Data and vital sign review and interpretation [x ] Patient assessment, examination and intervention [x] Medication orders and management [x] Patient/Family updates as able [x] Care Coordination and Documentation. Diagnoses Respiratory failure with hypoxia and hypercapnia J96.91; J96.92 COPD (chronic obstructive pulmonary disease) J44.9 Atrial fibrillation with RVR I48.91 Protein calorie malnutrition E46 Physical deconditioning R53.81
[2023-03-04] VITALS (15 sets, daily range): BP systolic 101–112; BP diastolic 49–59; PULSE 60–88; RESP 19–25; TEMP 35.9–36.8; O2SAT 93–99
[2023-03-04] MEDS: levalbuterol 0.63 mg/3 mL Neb INHALATION ×6 (00:52→19:57)
[2023-03-04] MEDS: ipratropium 0.5 mg/2.5 mL Neb INHALATION ×6 (00:52→19:56)
[2023-03-04] MEDS: dilTIAZem 60 mg Tablet PO ×2 (03:39→08:42)
[2023-03-04 05:05] LABS: Hematocrit 33.3 % (37.0-47.0); Hemoglobin 10.1 g/dL (11.5-15.3); Lymphocytes # 0.5 10^3/uL (0.8-4.8); Lymphocytes % 7.6 %; Mean Corpuscular HGB Conc 30.3 g/dL (30.0-36.0); Mean Corpuscular Hemoglobin 28.8 pg (28.0-34.0); Mean Corpuscular Volume 94.9 fl (81-99); Monocytes # 0.3 10^3/uL (0.2-0.9); Monocytes % 4.4 %; Neutrophils # 5.95 10^3/uL (1.8-7.7); Neutrophils % 87.4 %; Nucleated Red Blood Cells % 0 %; Platelet Count 328 10^3/cmm (130-400); Red Blood Count 3.51 10^6/uL (4.1-5.3); Red Cell Distribution Width 15.5 % (12.1-15.1); White Blood Count 6.8 10^3/uL (4.0-10.0)
[2023-03-04 05:45] LABS: Alanine Aminotransferase 6 U/L (0-33); Albumin Level 3.2 g/dL (3.5-5.2); Alkaline Phosphatase 41 U/L (35-105); Anion Gap 17.3 (5-19); Aspartate Amino Transferase 11 U/L (0-32); Blood Urea Nitrogen 15 mg/dL (8-23); Carbon Dioxide 32 mmol/L (22-29); Chloride 93 mmol/L (98-107); Glucose 177 mg/dL (65-115); Magnesium 2.1 mg/dL (1.7-2.3); Osmolality Calculated 291 mOsm/kg (285-295); Potassium 4.3 mmol/L (3.5-5.1); Sodium 138 mmol/L (136-145); Total Bilirubin 0.2 mg/dL (0.15-1.2); Total Protein 5.2 g/dL (6.6-8.7)
[2023-03-04 05:51] LABS: NT Pro B Type Natriuretic Pept 725 pg/mL (0-125)
[2023-03-04] MEDS: budesonide 0.5 mg/2 mL Neb INHALATION ×2 (07:32→19:57)
[2023-03-04 08:11] LABS: Blood Gas Sample Site Not specified
[2023-03-04 08:15] LABS: ABG PCO2 90.9 mmHg (35-45)
--- NOTE | 2023-03-04 08:36 | FL_ITS ---
WS: [id number] Exam: FL barium swallow modifd [id number] Date/Time of Exam: 03/04/2023 1:03 PM Reason For Exam: Oral dysphagia Fluoroscopy time: 2min [id number] minutes # of spot films: Modified barium swallow was performed in conjunction with the speech therapy service. The patient tolerated all consistencies of barium mixture foodstuffs without aspiration or penetratio n. Swallowing function was normal at the level of the oropharynx. The patient ingested a barium table t without difficulty or complication. FL/FL barium swallow modifd [id number] IMPRESSION: 1. No aspiration or penetration identified. Additional information and recommendations will follow from the speech therapy service.
[2023-03-04] MEDS: pantoprazole DR 40 mg Tablet PO (08:42)
[2023-03-04] MEDS: roflumilast 500 mcg Tablet PO (08:42)
[2023-03-04] MEDS: metoprolol tartrate 25 mg Tablet PO (08:42)
--- NOTE | 2023-03-04 10:07 | PC.CHAP ---
Pastoral Care Encounter/Spiritual Assessment Type of Contact [] Declined cardiac rn visit [] Patient/Family/Request visit [] Outpatient visit [] Follow-up visit [] Physician referral [] Code/Alert [x] Routine visit [] Staff referral [] Actively dying [] Patient sleeping [] Family support [] [] Out of room [] Palliative care [] [x] Receiving care in room [] Pre-surgical visit [] Trauma [] Long length of stay [] ICU visit [] Other: Relational/Emotional Strength [x] Patient feels connected with others/family/visitors/staff [] Distress [] Loneliness/isolation [] Abandonment Spirituality of Patient [x] Person of [place] [] Attends Confucianism of their [place] [x] Believes in Prayer [] Reads Bible or Adventist materials [] There are Spiritual issues to be addressed Waste Collector Interventions [x] Prayer [x] Active listening [x] Non-anxious presence [x] Spiritual/emotional support [] Crisis/trauma care [x] Spiritual counseling [] Bereavement support [] Provided bereavement packet [] Provided Bible/devotional materials [] Provided toy/stuffed animal, coloring book to patient or family member [] Provided Communion [] Anointing/[place] [x] Salvation [] Completed spiritual assessment [] Other: Impact on Illness or Injury [] Angry [] Fearful [] Anxious [] Often cries [] Exhaustion [] Unable to work [] Unable to attend hoahaoism [] Unable to walk/stand [] Unable to read [] Unable to drive [] Unable to eat/drink [] Unable to sleep [] Unable to be with family [] Patient intubated [] Other: Summary unable to communicate doesn't know about her health waiting doctor well go go home at some point Time spent with patient 10 mins
[2023-03-04] MEDS: enoxaparin 40 mg/0.4 mL Syringe SUBCUT (10:53)
--- NOTE | 2023-03-04 12:47 | PM.CONSULT ---
Providers/Reason For Consult Consulting Physician/Specialty*: Alvaro Boykin [facility], [facility] critical care Reason for Consult*: COPD exacerbation Requesting Physician: Herbie Cifuentes MD Attending Physician: Herbie Cifuentes MD Primary Care Provider: Norman Lazo MD History of Present Illness History of Present Illness Marie Hull is a 73 year old female With end-stage COPD and significant bullous emphysema on 2 L admitted for COPD exacerbation. She follows up in pulmonary clinic for COPD. I have seen her recently 02/25/2023. Patient PFTs October 2022 showed very severe COPD with [id number]% predicted. DLCO is severely diminished at 25%. She is using her home ventilator on a regular basis for chronic hypercapnic respiratory failure.? The patient has a portable oxygen concentrator however it appears that there have been issues with the battery life.? The patient is having to use reduced oxygen flow to consider battery. As outpatient, The patient is currently on Advair and Spiriva, and azithromycin to 250 mg every other day.? She has been on azithromycin for nearly 3 years and she was stable so it was stopped..Patient reports being admitted to hospital 4 x since July 2022 for COPD exacerbation. ? She was put back on azithromycin 250 Mg every other day-however she was admitted again to hospital again in January 2023 with another exacerbation.Sputum cultures grew pansensitive E. coli, She was treated with appropriate antibiotics and was dischargedWith Roflumilast 500 Mg daily. Even during her follow-up clinic visit 02/25/2023-she was complaining of increased productive sputum greenish in color-I have given her prescription for levofloxacin 500 Mg daily for 5 days; Switched her advair-Spiriva to triple nebulization. However patient did not receive the nebulizations yet. On 02/27/2023-she came to ER but refused admission. She comes back again 03/02/2023 and this time admitted for respiratory failure with hypoxia and hypercapnia secondary to COPD exacerbation. She had sputum cultures December 2019 which grew Acinetobacter resistant to fluoroquinolones, pansensitive E. coli, Pseudomonas. However most recent sputum culture January 2023-grew pansensitive E. coli. As she just finished the levofloxacin, And given history of MDR organisms,she was started on meropenem And sputum culture, MRSA nares were sent.She is also started On dexamethasone 6 mg IV daily.MRSA nares came back negative. Patient was Transferred to CSU yesterday as she had A-fib with RVR and was started on Cardizem drip Additionally The patient had a left upper lobe lung lesion in 2019.? She had a low-dose CT scan for lung cancer screening in November 2021 which revealed significant emphysematous changes.? The cavitary looking lesion in the left upper lobe has been stable.? There is a 7 mm left lower lobe lung nodule. As the patient had very significant decline in her pulmonary function test She has decided not to continue with any further work-up for cancer.? Pulmonary consult requested for recurrent COPD exacerbation and discuss goals of care with family. I have seen patient at bedside and she is on 3 L nasal cannula saturating 98% Tells me that Her breathing has improved Since admission. Her [id number] mentioned that she Just received Pulmicort and Perforomist medications but Yupelri still not available at [facility]. Review of Systems General: Reports: 10 or more systems reviewed and unremarkable except in HPI and below Medications/Allergies Home Medications Medication Instructions Recorded Confirmed Last Taken Type celecoxib 200 mg capsule 200 mg PO BID #180 caps 03/03/22 03/03/23 11/22/22 Rx oxygen #1 ea 03/24/22 03/03/23 07/24/22 Rx levocetirizine 5 mg tablet 5 mg PO DAILY #30 tabs 06/15/22 03/03/23 11/22/22 Rx albuterol sulfate 90 mcg/actuation 1 puff inhalation TID PRN 09/14/22 03/03/23 Unknown Rx aerosol inhaler (Ventolin HFA) Shortness Of Breath #18 grams bimatoprost 0.01 % eye drops 1 drp ophthalmic (eye) BEDTIME 10/20/22 03/03/23 11/21/22 History (Neisha) azithromycin 250 mg tablet 250 mg PO .3 times weekly COPD #36 01/28/23 03/03/23 Unknown Rx tabs cholecalciferol (vitamin D3) 25 1,000 unit PO DAILY 02/08/23 03/03/23 Unknown History mcg (1,000 unit) tablet (Vitamin D3) ipratropium 0.5 mg-albuterol 3 mg 3 ml inhalation TID 02/08/23 03/03/23 Unknown History (2.5 mg base)/3 mL nebulization soln pantoprazole 40 mg tablet,delayed 40 mg PO DAILY 02/08/23 03/03/23 Unknown History release furosemide 20 mg tablet (Lasix) 20 mg PO DAILY PRN edema #60 tabs 02/09/23 03/03/23 Unknown Rx potassium chloride 20 mEq 20 meq PO DAILY PRN Only with 02/09/23 03/03/23 Unknown Rx tablet,extended release Lasix #60 tabs roflumilast 500 mcg tablet 500 mcg PO DAILY #90 tabs 02/09/23 03/03/23 Unknown Rx budesonide 0.5 mg/2 mL suspension 0.5 mg (2 mL) inhalation BID COPD 02/25/23 03/03/23 Unknown Rx for nebulization J44.9 #60 mL formoterol fumarate 20 mcg/2 mL 2 ml inhalation BID COPD J44.9 02/25/23 03/03/23 Unknown Rx solution for nebulization #120 mL (Perforomist) levofloxacin 500 mg tablet 500 mg PO DAILY #7 tabs 02/25/23 03/03/23 Unknown Rx revefenacin 175 mcg/3 mL solution 175 mcg (3 mL) inhalation DAILY 02/25/23 03/03/23 Unknown Rx for nebulization (Yupelri) COPD J44.9 #90 mL calcium carbonate 600 mg calcium 600 mg PO DAILY 03/03/23 03/03/23 Unknown History (1,500 mg) tablet (Calcium) diltiazem HCl 30 mg tablet 30 mg PO BID 03/03/23 03/03/23 Unknown History fluticasone 100 mcg-salmeterol 50 1 ea inhalation BID 03/03/23 03/03/23 Unknown History mcg/dose blistr powdr for inhalation metoprolol tartrate 25 mg tablet 12.5 mg PO BID 03/03/23 03/03/23 Unknown History tiotropium bromide 18 mcg capsule 1 cap inhalation DAILY 03/03/23 03/03/23 Unknown History with inhalation device (Spiriva with HandiHaler) Allergies Allergy/AdvReac Type Severity Reaction Status Date / Time No Known Allergies Allergy Verified 03/02/23 21:08 Current Medications Generic Name Dose Route Start Last Admin Trade Name Freq PRN Reason Stop Dose Admin Azithromycin 250 mg 03/03/23 09:00 07/19/23 09:57 Azithromycin 250 Mg Tablet PO 250 mg MoWeFr YOLA Administration Protocol Budesonide 0.5 mg 03/03/23 08:00 03/04/23 07:32 Budesonide 0.5 Mg/2 Ml Neb INHALATION 0.5 mg BID.RESPIRATORY YOLA Administration Dexamethasone 6 mg 03/03/23 18:00 03/03/23 17:54 Dexamethasone 10 Mg/Ml Inj IVP 6 mg Q24H YOLA Administration Enoxaparin Sodium 40 mg 03/03/23 11:45 03/04/23 10:53 Enoxaparin 40 Mg/0.4 Ml Syringe SUBCUT 40 mg Q12H YOLA Administration Ipratropium [place] 0.5 mg 03/03/23 16:00 03/04/23 11:16 Ipratropium 0.5 Mg/2.5 Ml Neb INHALATION 0.5 mg Q4H.RESPIRATORY YOLA Administration Levalbuterol HCl 0.63 mg 03/03/23 16:00 03/04/23 11:16 Levalbuterol 0.63 Mg/3 Ml Neb INHALATION 0.63 mg Q4H.RESPIRATORY YOLA Administration Non-Formulary Medication 175 mcg 03/03/23 09:00 03/04/23 08:08 Revefenacin [Yupelri] INHALATION Not Given DAILY YOLA Pantoprazole Sodium 40 mg 03/03/23 09:00 03/04/23 08:[address] 40 Mg Tablet PO 40 mg DAILY YOLA Administration Roflumilast 500 mcg 03/03/23 09:00 03/04/23 08:42 Roflumilast 500 Mcg Tablet PO 500 mcg DAILY YOLA Administration PFSH Acute PFSH: Medical History (Updated 03/04/23 @ 22:19 by Alvaro Boykin MD) Acute exacerbation of chronic obstructive airways disease Acute exacerbation of chronic obstructive airways disease Acute hypercapnic respiratory failure Acute on chronic respiratory failure with hypoxia and hypercapnia Acute on chronic respiratory failure with hypoxia and hypercapnia Atrial fibrillation transient, during acute COPD exacerbation in 2019 Back pain Chest pain Chronic obstructive pulmonary emphysema Chronic respiratory failure with hypoxia and hypercapnia COPD (chronic obstructive pulmonary disease) Diastolic CHF History of echocardiogram 08/2019 EF 65%, grade I/IV diastolic dysfunction, PAP within normal limits History of PFTs 10/2019 severe airflow obstruction, FEV1/FVC of 33%, FEV1 0.57 L 29% predicted, FVC 1.76 L 71% predicted, TLC 107%, RV 163%, reduced DLCO at 25% Hyperkalemia Mass of upper lobe of left lung cavitary appearance, never biopsied due to risk of complication and non-surgical candidate, has been stable on imaging On home oxygen therapy 2-3 L BNC at baseline Osteoarthritis Osteoporosis Paroxysmal A-fib Personal history of nicotine dependence quit in 2019, but still with 2nd hand exposure Pseudomonas aeruginosa colonization Pulmonary fibrosis Pulmonary nodule left lower lobe Seasonal allergies Uses bilevel positive airway pressure (BPAP) ventilation at home [facility], via [facility] Surgical History History of kyphoplasty (2014) L1, L2, L3, L5 performed by Dr. Roman Marquez Family History Mother CAD (coronary artery disease) Social History Smoking and tobacco status: former smoker Quit status (tobacco): has quit using tobacco Year quit tobacco: 2019 - 1PPD x 50 Years Second hand smoke exposure: Yes Alcohol intake: never Substance/Drug Use: never Lives independently: Yes Household members: none Marital status: Current occupational status: retired Do you think of yourself as: Straight/Heterosexual Current gender identity: Female Vitals/I&O/Wt Last Vital Signs Temp 98.2 F 03/04/23 07:51 Pulse 60 03/04/23 11:16 Resp 20 H 03/04/23 11:16 BP 101/53 03/04/23 07:51 Pulse Ox 99 03/04/23 11:16 O2 Del Method Nasal Cannula 03/04/23 11:16 O2 Flow Rate 3 03/04/23 11:16 FiO2 35 03/03/23 16:00 03/03/23 03/04/23 03/04/23 22:59 06:59 14:59 Intake Total 100 / 1080 660 / 660 Output Total 375 / 375 Balance -375 / 605 100 / 705 660 / 660 Weight last 48 hrs Weight 81 lb Physical Exam Narrative: General: alert, NAD HEENT: conj clear, EOMI, PERRL, mmm, Neck: supple, no meningismus Heme: no cervical LAP Respiratory: Inspection: No visible deformity of the chest wall Palpation: Trachea is mildly deviated to the right, bilateral symmetric expansion Percussion: Bilateral tympanic percussion note both anterior and posteriorly Auscultation: Bilateral clear to auscultation both anterior and posteriorly, no crackles wheezing or rhonchi Cardiovascular: rrr, nl s1s2, no mrg Abdomen: soft, nt, nd, no r/g, bs+ Extremities: pulses +, no edema, no c/c : no CVA tenderness Skin: intact, no rash MSK: no back or neck pain Neurologic: grossly intact Data 03/04/23 04:52 03/04/23 04:52 Other Labs: Radiology Impressions Chest X-Ray 03/02/23 20:58 IMPRESSION: 1. Stable biapical pleuroparenchymal fibrosis. 2. Emphysematous changes. Modified Barium Swallow 03/04/23 08:36 IMPRESSION: 1. No aspiration or penetration identified. Additional information and recommendations will follow from the speech therapy service. Laboratory Results WBC 6.8 10^3/uL (4.0-10.0) 03/04/23 04:52 RBC 3.51 10^6/uL (4.1-5.3) L 03/04/23 04:52 Hgb 10.1 g/dL (11.5-15.3) L 03/04/23 04:52 Hct 33.3 % (37.0-47.0) L 03/04/23 04:52 MCV 94.9 fl (81-99) 03/04/23 04:52 MCH 28.8 pg (28.0-34.0) 03/04/23 04:52 MCHC 30.3 g/dL (30.0-36.0) 03/04/23 04:52 RDW 15.5 % (12.1-15.1) H 03/04/23 04:52 Plt Count 328 10^3/cmm (130-400) 03/04/23 04:52 MPV 9.0 fL (7.4-10.4) 03/04/23 04:52 Neut % (Auto) 87.4 % 03/04/23 04:52 Lymph % (Auto) 7.6 % 03/04/23 04:52 Brooks % (Auto) 4.4 % 03/04/23 04:52 Eos % (Auto) 0.0 % 03/04/23 04:52 Baso % (Auto) 0.0 % 03/04/23 04:52 Neut # (Auto) 5.95 10^3/uL (1.8-7.7) 03/04/23 04:52 Lymph # (Auto) 0.5 10^3/uL (0.8-4.8) L 03/04/23 04:52 Brooks # (Auto) 0.3 10^3/uL (0.2-0.9) 03/04/23 04:52 Eos # (Auto) 0.0 10^3/uL (0.0-0.8) 03/04/23 04:52 Baso # (Auto) 0.0 10^3/uL (0.0-0.1) 03/04/23 04:52 Nucleated RBC % (auto) 0 % 03/04/23 04:52 Nucleated RBCs # 0.0 /100WBC 03/04/23 04:52 PT 13.50 SECONDS (12.1-14.9) 03/04/23 04:52 INR 1.00 (0.8-1.2) 03/04/23 04:52 Specimen Type Arterial 03/02/23 20:58 Sample Site Not specified 03/02/23 20:58 ABG pH 7.30 (7.35-7.45) L 03/02/23 20:58 ABG pCO2 90.9 mmHg (35-45) H* 03/02/23 20:58 ABG pO2 229.0 mmHg (80.0-100.0) H 03/02/23 20:58 ABG HCO3 44.3 mmol/L (22-26) H 03/02/23 20:58 ABG Base Excess 14.4 mmol/L (-2.0-2.0) H 03/02/23 20:58 Nikolas Test Pos 03/02/23 20:58 Hematocrit 34.3 % (37-47) L 03/02/23 20:58 Hgb O2 Saturation 97.7 % (95-100) 03/02/23 20:58 Carboxyhemoglobin 2.0 %THgb (0.4-20.1) 03/02/23 20:58 Methemoglobin 0.8 % (0.4-1.5) 03/02/23 20:58 Total Hemoglobin 11.2 g/dL (12-16) L 03/02/23 20:58 O2 Delivery Device Nc 03/02/23 20:58 O2 Liters/Min 6.0 % 03/02/23 20:58 Before School Babysitter ID Snhea 03/02/23 20:58 Sodium 138 mmol/L (136-145) 03/04/23 04:52 Potassium 4.3 mmol/L (3.5-5.1) 03/04/23 04:52 Chloride 93 mmol/L (98-107) L 03/04/23 04:52 Carbon Dioxide 32 mmol/L (22-29) H 03/04/23 04:52 Anion Gap 17.3 (5-19) 03/04/23 04:52 BUN 15 mg/dL (8-23) 03/04/23 04:52 Creatinine 0.4 mg/dL (0.5-0.9) L 03/04/23 04:52 GFR Calculation Not Reportable 03/04/23 04:52 Glucose 177 mg/dL (65-115) H 03/04/23 04:52 POC Glucose 116 mg/dL (70-110) H 03/04/23 21:15 Calculated Osmolality 291 mOsm/kg (285-295) 03/04/23 04:52 Calcium 9.0 mg/dL (8.5-10.5) 03/04/23 04:52 Phosphorus 3.0 mg/dL (2.5-4.5) 03/04/23 04:52 Magnesium 2.1 mg/dL (1.7-2.3) 03/04/23 04:52 Total Bilirubin 0.2 mg/dL (0.15-1.2) 03/04/23 04:52 AST 11 U/L (0-32) 03/04/23 04:52 ALT 6 U/L (0-33) 03/04/23 04:52 Alkaline Phosphatase 41 U/L (35-105) 03/04/23 04:52 Troponin T Baseline 19 ng/L (0-10) H 03/03/23 11:18 Troponin T 120 Minute 21.62 ng/L (0-10) H 03/03/23 13:30 Delta Troponin T 2.62 ABS# (0-10) 03/03/23 13:30 Troponin T Hi Sens 6Hr 25.40 ng/L (0-10) H 03/03/23 17:18 Troponin T Hi Sens 6Hr Delta 6.40 ng/L (0-12) 03/03/23 17:18 NT-Pro-B Natriuret Pep 725 pg/mL (0-125) H 03/04/23 04:52 Total Protein 5.2 g/dL (6.6-8.7) L 03/04/23 04:52 Albumin 3.2 g/dL (3.5-5.2) L 03/04/23 04:52 Globulin 2.0 g/dL (1.3-4.6) 03/04/23 04:52 Coronavirus 229E (PCR) Not detected (NOT DETECT) 03/02/23 22:45 SARS-CoV-2 (PCR) Not detected (NOT DETECT) 03/02/23 22:45 Micro: Microbiology 03/02/23 22:45 MRSA Culture - Final Nose A&P Assessment and plan (1) Respiratory failure with hypoxia and hypercapnia: Secondary to COPD exacerbation Currently requiring 3 L supplemental oxygen only and saturating 98% (2) Acute exacerbation of chronic obstructive airways disease: Chest x-ray did not reveal any acute process Currently on dexamethasone 6 mg IV daily Scheduled nebulizations Currently on meropenem MRSA nares negative; sputum cultures pending (Sputum culture December 2019 showed E. coli/Pseudomonas/Acinetobacter; January 2023 showed pansensitive E. coli only) If current cultures grew MDR Acinetobacter/Pseudomonas-we will discharge patient with inhaled amikacin 28 days on and off (3) Physical deconditioning: From end-stage COPD She has physical therapy coming to home (4) COPD (chronic obstructive pulmonary disease): The patient has gold class D End-stage COPD.? End-stage severe PAD with FEV1 29% She has very severe airflow obstruction on pulmonary function test and profound emphysema on the CT scan. Saturation at 97% on 3L and requires more during exertion. Lately she has been having multiple exacerbations requiring hospital admissions. As outpatient, She is on Roflumilast 500 Mg p.o. daily, along with Advair, Spiriva, azithromycin 250 Mg every other day. I have recently discontinued Advair and Spiriva and switched patient to triple nebulization and recommended to continue along with Roflumilast 500 Mg p.o. daily and azithromycin 250 Mg every other day However [id number] tells me that patient received Pulmicort and Perforomist today.And Abhinav does not have Yupelri. I have informed Carola to help with triple nebulizations to patient. Hopefully it will available by the time she is discharged She is even enrolled into pulmonary rehab which she is currently on hold due to hospital admissions (5) Atrial fibrillation with RVR: Currently she is on Cardizem drip and her rate is controlled (6) Mass of upper lobe of left lung: A low-dose CT scan for lung cancer screening in November 2021 revealed significant emphysematous changes.? Stable cavitary lesion in the left upper lobe.? Additionally, 7 mm nodule was seen in the left lower lobe. CT chest november 2022: No change in the noncalcified pleural-based nodule measuring 6 mm in diameter LEFT lower lobe. Severe bullous emphysema. There are numerous bulla and bleb formations predominantly in the upper lobes. Centrilobular emphysema. Fibrotic changes at the lung apices. ? we are not following on LDCT as? the patient had very significant decline in her pulmonary function test And she decided not to continue with any further work-up for cancer.? Coding Level of Care Code 90917 Diagnoses Respiratory failure with hypoxia and hypercapnia J96.91; J96.92 Acute exacerbation of chronic obstructive airways disease J44.1 Physical deconditioning R53.81 COPD (chronic obstructive pulmonary disease) J44.9 Atrial fibrillation with RVR I48.91 Mass of upper lobe of left lung R91.8 Time Spent (min) 62
--- NOTE | 2023-03-04 16:52 | P.PN_ITS ---
Subjective Subjective: - Patient was seen this morning -Denies any chest pain, no palpitations -No fevers, no chills Vitals/I&O/Wt Last Vital Signs Temp 98.2 F 03/04/23 16:00 Pulse 82 03/04/23 16:00 Resp 21 H 03/04/23 16:00 BP 111/58 03/04/23 16:00 Pulse Ox 97 03/04/23 16:00 O2 Del Method Nasal Cannula 03/04/23 16:00 O2 Flow Rate 3 03/04/23 16:00 FiO2 35 03/03/23 16:00 03/04/23 03/04/23 03/04/23 06:59 14:59 22:59 Intake Total 100 / 1080 1020 / 1020 Balance 100 / 705 1020 / 1020 Weight last 48 hrs Weight 36.741 kg Physical Exam Const: COMMON NORMALS: no acute distress and patient oriented x3 Resp: COMMON NORMALS: normal respiratory effort, No retractions, No use of accessory muscles and clear to auscultation bilaterally AUSCULTATION: clear to auscultation bilaterally Cardio: COMMON NORMALS: regular rate, regular rhythm, S1 normal heart sound present and S2 normal heart sound present RATE: regular rate RHYTHM: regular rhythm HEART SOUNDS: S1 normal heart sound present and S2 normal heart sound present GI: COMMON NORMALS: Normal to inspection, nondistended, normoactive bowel sounds present and non-tender Extremity: COMMON NORMALS: no pedal edema Neuro: COMMON NORMALS: patient oriented x3 Psych: COMMON NORMALS: mental status grossly normal Data 03/04/23 04:52 03/04/23 04:52 A&P Assessment and plan (1) Respiratory failure with hypoxia and hypercapnia: - Continue home trilogy machine -Monitor respiratory status closely -Continue DuoNeb -Continue budesonide -Continue Decadron -Sputum cultures in the past have grown E. coli, Pseudomonas -Hold off on antibiotic therapy for now, sputum culture (2) COPD (chronic obstructive pulmonary disease): (3) Atrial fibrillation with RVR: -Having paroxysmal A-fib now - Increase Cardizem to 60 every 6 hours -Continue metoprolol -Therapeutic Lovenox (4) Protein calorie malnutrition: - Consult dietary (5) Physical deconditioning: - PT OT Plan Plan for today, up out of bed, consult Dr. Boykin, modified barium swallow evaluation, continue steroids, titrate p.o. Cardizem, metoprolol, spoke to Dr. Boykin Full code currently Lovenox for DVT prophylaxis Attestations 2 Medical Necessity Statement*: Patient requires hospitalization for A-fib, COPD, Diagnoses Respiratory failure with hypoxia and hypercapnia J96.91; J96.92 COPD (chronic obstructive pulmonary disease) J44.9 Atrial fibrillation with RVR I48.91 Protein calorie malnutrition E46 Physical deconditioning R53.81
[2023-03-04] MEDS: metoprolol tartrate 25 mg Tablet 12.5 MG PO (17:36)
[2023-03-04] MEDS: dexamethasone 10 mg/mL INJ 6 MG IVP (17:36)
[2023-03-04] MEDS: dilTIAZem 30 mg Tablet PO (20:49)
[2023-03-04 21:20] LABS: Glucose Point of Care 116 mg/dL (70-110)
[2023-03-05] VITALS (17 sets, daily range): BP systolic 87–112; BP diastolic 48–65; PULSE 74–90; RESP 16–27; TEMP 36.5–36.9; O2SAT 95–99
[2023-03-05] MEDS: ipratropium 0.5 mg/2.5 mL Neb INHALATION ×6 (00:31→19:57)
[2023-03-05] MEDS: levalbuterol 0.63 mg/3 mL Neb INHALATION ×6 (00:31→19:57)
[2023-03-05] MEDS: enoxaparin 40 mg/0.4 mL Syringe SUBCUT ×3 (01:12→23:52)
[2023-03-05 04:46] LABS: Anion Gap 8.7 (5-19); Blood Urea Nitrogen 14 mg/dL (8-23); Carbon Dioxide 39 mmol/L (22-29); Chloride 96 mmol/L (98-107); Glucose 124 mg/dL (65-115); NT Pro B Type Natriuretic Pept 711 pg/mL (0-125); Osmolality Calculated 290 mOsm/kg (285-295); Potassium 4.7 mmol/L (3.5-5.1); Sodium 139 mmol/L (136-145)
[2023-03-05 06:12] LABS: Glucose Point of Care 119 mg/dL (70-110)
[2023-03-05 06:54] LABS: Magnesium 2.2 mg/dL (1.7-2.3)
[2023-03-05 07:11] LABS: Hematocrit 34.1 % (37.0-47.0); Hemoglobin 10.5 g/dL (11.5-15.3); Lymphocytes # 0.5 10^3/uL (0.8-4.8); Lymphocytes % 8.4 %; Mean Corpuscular HGB Conc 30.8 g/dL (30.0-36.0); Mean Corpuscular Hemoglobin 29.1 pg (28.0-34.0); Mean Corpuscular Volume 94.5 fl (81-99); Mean Platelet Volume 9.1 fL (7.4-10.4); Monocytes # 0.4 10^3/uL (0.2-0.9); Neutrophils # 4.97 10^3/uL (1.8-7.7); Neutrophils % 84.7 %; Nucleated Red Blood Cells % 0 %; Platelet Count 350 10^3/cmm (130-400); Red Blood Count 3.61 10^6/uL (4.1-5.3); Red Cell Distribution Width 15.6 % (12.1-15.1); White Blood Count 5.9 10^3/uL (4.0-10.0)
[2023-03-05] MEDS: budesonide 0.5 mg/2 mL Neb INHALATION ×2 (07:37→19:57)
[2023-03-05] MEDS: dilTIAZem 30 mg Tablet PO ×3 (08:54→20:35)
[2023-03-05] MEDS: FUROsemide 10 mg/mL SDV 2mL 20 MG IVP (08:54)
[2023-03-05] MEDS: pantoprazole DR 40 mg Tablet PO (08:54)
[2023-03-05] MEDS: roflumilast 500 mcg Tablet PO (08:54)
[2023-03-05] MEDS: metoprolol tartrate 25 mg Tablet 12.5 MG PO ×2 (08:54→17:35)
[2023-03-05] MEDS: azithromycin 250 mg Tablet PO (08:55)
--- NOTE | 2023-03-05 09:01 | PC.SOCIAL ---
Pg 2 IMM Explained to pt & daughter Pg 2 IMM. No questions voiced. Provided pt a copy. Initialed, dated, & timed a copy & placed in chart.
[2023-03-05 11:32] LABS: Glucose Point of Care 115 mg/dL (70-110)
--- NOTE | 2023-03-05 15:37 | PM.PN ---
Subjective Subjective: Patient was seen this morning, she has no complaints, her shortness of breath is improving, no fevers, no chills Vitals/I&O/Wt Last Vital Signs Temp 98.1 F 03/05/23 12:00 Pulse 89 03/05/23 14:00 Resp 26 H 03/05/23 12:00 BP 110/48 03/05/23 12:00 Pulse Ox 98 03/05/23 12:00 O2 Del Method Nasal Cannula 03/05/23 12:00 O2 Flow Rate 3 03/05/23 11:45 FiO2 35 03/03/23 16:00 03/05/23 03/05/23 03/05/23 06:59 14:59 22:59 Intake Total 150 / 1410 240 / 240 Balance 150 / 1410 240 / 240 Physical Exam Const: COMMON NORMALS: no acute distress and patient oriented x3 Resp: COMMON NORMALS: normal respiratory effort, No retractions and No use of accessory muscles OTHER: No wheezing on exam no crackles, diminished breath sounds bilaterally Cardio: COMMON NORMALS: regular rate, regular rhythm, S1 normal heart sound present and S2 normal heart sound present RATE: regular rate RHYTHM: regular rhythm HEART SOUNDS: S1 normal heart sound present and S2 normal heart sound present GI: COMMON NORMALS: Normal to inspection, nondistended, normoactive bowel sounds present and non-tender Extremity: COMMON NORMALS: no clubbing, cyanosis or edema and no pedal edema Neuro: COMMON NORMALS: patient oriented x3 Psych: COMMON NORMALS: mental status grossly normal Data 03/05/23 06:54 03/05/23 03:12 A&P Assessment and plan (1) Respiratory failure with hypoxia and hypercapnia: - Continue home trilogy machine -Monitor respiratory status closely -Continue DuoNeb -Continue budesonide -Continue Decadron -Sputum cultures in the past have grown E. coli, Pseudomonas -Hold off on antibiotic therapy for now, sputum culture (2) COPD (chronic obstructive pulmonary disease): (3) Atrial fibrillation with RVR: -Having paroxysmal A-fib now -Continue Cardizem 30 every 6 hour -Continue metoprolol 12.5 twice daily -Therapeutic Lovenox (4) Protein calorie malnutrition: - Consult dietary (5) Physical deconditioning: - PT OT Plan Plan for today, up out of bed, up out of bed, continue steroids, monitor heart rate Full code currently Lovenox for DVT prophylaxis Attestations Medical Necessity Statement*: Patient requires hospitalization for A-fib, COPD exacerbation, protein joyce malnutrition, deconditioning Diagnoses Respiratory failure with hypoxia and hypercapnia J96.91; J96.92 COPD (chronic obstructive pulmonary disease) J44.9 Atrial fibrillation with RVR I48.91 Protein calorie malnutrition E46 Physical deconditioning R53.81
[2023-03-05 17:15] LABS: Glucose Point of Care 117 mg/dL (70-110)
[2023-03-05] MEDS: dexamethasone 10 mg/mL INJ 6 MG IVP (17:35)
[2023-03-05 20:38] LABS: Glucose Point of Care 162 mg/dL (70-110)
[2023-03-06] VITALS (16 sets, daily range): BP systolic 109–126; BP diastolic 54–70; PULSE 68–109; RESP 14–28; TEMP 36.6–36.8; O2SAT 94–99
[2023-03-06] MEDS: levalbuterol 0.63 mg/3 mL Neb INHALATION ×6 (00:09→20:46)
[2023-03-06] MEDS: ipratropium 0.5 mg/2.5 mL Neb INHALATION ×6 (00:09→20:46)
[2023-03-06] MEDS: dilTIAZem 30 mg Tablet PO ×4 (02:30→21:01)
[2023-03-06 03:40] LABS: Hematocrit 33.6 % (37.0-47.0); Hemoglobin 10.3 g/dL (11.5-15.3); Lymphocytes # 0.5 10^3/uL (0.8-4.8); Lymphocytes % 9.3 %; Mean Corpuscular HGB Conc 30.7 g/dL (30.0-36.0); Mean Corpuscular Hemoglobin 28.4 pg (28.0-34.0); Mean Corpuscular Volume 92.6 fl (81-99); Mean Platelet Volume 9.4 fL (7.4-10.4); Monocytes # 0.4 10^3/uL (0.2-0.9); Monocytes % 6.8 %; Neutrophils # 4.39 10^3/uL (1.8-7.7); Nucleated Red Blood Cells % 0 %; Platelet Count 379 10^3/cmm (130-400); Red Blood Count 3.63 10^6/uL (4.1-5.3); Red Cell Distribution Width 15.5 % (12.1-15.1); White Blood Count 5.3 10^3/uL (4.0-10.0)
[2023-03-06 04:08] LABS: Magnesium 2.1 mg/dL (1.7-2.3)
[2023-03-06 04:14] LABS: Anion Gap 10.6 (5-19); Blood Urea Nitrogen 19 mg/dL (8-23); Calcium 8.7 mg/dL (8.5-10.5); Carbon Dioxide 39 mmol/L (22-29); Chloride 94 mmol/L (98-107); Glucose 144 mg/dL (65-115); NT Pro B Type Natriuretic Pept 388 pg/mL (0-125); Osmolality Calculated 293 mOsm/kg (285-295); Potassium 4.6 mmol/L (3.5-5.1); Sodium 139 mmol/L (136-145)
[2023-03-06 06:38] LABS: Glucose Point of Care 106 mg/dL (70-110)
[2023-03-06] MEDS: budesonide 0.5 mg/2 mL Neb INHALATION ×2 (07:28→20:46)
[2023-03-06] MEDS: roflumilast 500 mcg Tablet PO (08:38)
[2023-03-06] MEDS: pantoprazole DR 40 mg Tablet PO (08:39)
[2023-03-06] MEDS: metoprolol tartrate 25 mg Tablet 12.5 MG PO ×2 (08:39→17:40)
[2023-03-06 11:29] LABS: Glucose Point of Care 143 mg/dL (70-110)
--- NOTE | 2023-03-06 13:16 | PM.PN ---
Subjective Subjective: - Was seen this morning, she does report shortness of breath with exertion, does report tachycardia with exertion, no fevers, no chills she tells me that she cannot cough up to provide a sputum sample Vitals/I&O/Wt Last Vital Signs Temp 98.2 F 03/06/23 12:00 Pulse 80 03/06/23 12:10 Resp 19 H 03/06/23 12:00 BP 125/62 03/06/23 12:00 Pulse Ox 98 03/06/23 12:00 O2 Del Method Nasal Cannula 03/06/23 12:00 O2 Flow Rate 2 03/06/23 12:00 FiO2 35 03/03/23 16:00 03/05/23 03/06/23 03/06/23 22:59 06:59 14:59 Intake Total 950 / 1190 650 / 1840 240 / 240 Balance 950 / 1190 650 / 1840 240 / 240 Physical Exam Const: COMMON NORMALS: no acute distress and patient oriented x3 Resp: COMMON NORMALS: normal respiratory effort, No retractions and No use of accessory muscles AUSCULTATION: wheezes Cardio: COMMON NORMALS: regular rate, regular rhythm, S1 normal heart sound present and S2 normal heart sound present RATE: regular rate RHYTHM: regular rhythm HEART SOUNDS: S1 normal heart sound present and S2 normal heart sound present GI: COMMON NORMALS: Normal to inspection, nondistended, normoactive bowel sounds present and non-tender Extremity: COMMON NORMALS: no pedal edema Neuro: COMMON NORMALS: patient oriented x3 Psych: COMMON NORMALS: mental status grossly normal Data 03/06/23 02:31 03/06/23 02:31 A&P Assessment and plan (1) Respiratory failure with hypoxia and hypercapnia: - Continue home trilogy machine -Monitor respiratory status closely -Continue DuoNeb -Continue budesonide -Continue Decadron -Sputum cultures in the past have grown E. coli, Pseudomonas -Hold off on antibiotic therapy for now, sputum culture (2) COPD (chronic obstructive pulmonary disease): (3) Atrial fibrillation with RVR: -Having paroxysmal A-fib now -Continue Cardizem 30 every 6 hour -Continue metoprolol 12.5 twice daily -Therapeutic Lovenox (4) Protein calorie malnutrition: - Consult dietary (5) Physical deconditioning: - PT OT Plan Plan for today, up out of bed, up out of bed, continue steroids, monitor heart rate Full code currently Lovenox for DVT prophylaxis Attestations Medical Necessity Statement*: Patient requires hospitalization for COPD exacerbation Diagnoses Respiratory failure with hypoxia and hypercapnia J96.91; J96.92 COPD (chronic obstructive pulmonary disease) J44.9 Atrial fibrillation with RVR I48.91 Protein calorie malnutrition E46 Physical deconditioning R53.81
[2023-03-06] MEDS: enoxaparin 40 mg/0.4 mL Syringe SUBCUT ×2 (13:19→23:45)
[2023-03-06 16:46] LABS: Glucose Point of Care 158 mg/dL (70-110)
[2023-03-06] MEDS: dexamethasone 10 mg/mL INJ 6 MG IVP (17:40)
[2023-03-07] VITALS (17 sets, daily range): BP systolic 103–122; BP diastolic 52–68; PULSE 64–100; RESP 16–21; TEMP 36.5–37; O2SAT 96–99
[2023-03-07] MEDS: levalbuterol 0.63 mg/3 mL Neb INHALATION ×6 (00:41→23:37)
[2023-03-07] MEDS: ipratropium 0.5 mg/2.5 mL Neb INHALATION ×6 (00:41→23:37)
[2023-03-07] MEDS: dilTIAZem 30 mg Tablet PO ×4 (03:16→21:18)
[2023-03-07 03:25] LABS: Anion Gap 11.4 (5-19); Blood Urea Nitrogen 20 mg/dL (8-23); Calcium 9.5 mg/dL (8.5-10.5); Carbon Dioxide 39 mmol/L (22-29); Chloride 94 mmol/L (98-107); Glucose 158 mg/dL (65-115); Osmolality Calculated 294 mOsm/kg (285-295); Potassium 5.4 mmol/L (3.5-5.1); Sodium 139 mmol/L (136-145)
[2023-03-07] MEDS: budesonide 0.5 mg/2 mL Neb INHALATION ×2 (08:04→20:20)
[2023-03-07] MEDS: metoprolol tartrate 25 mg Tablet 12.5 MG PO ×2 (08:56→17:35)
[2023-03-07] MEDS: pantoprazole DR 40 mg Tablet PO (08:57)
[2023-03-07] MEDS: roflumilast 500 mcg Tablet PO (08:57)
--- NOTE | 2023-03-07 09:14 | PC.SOCIAL ---
IMM Update pg 2 of IMM updated and reviewed w/ patient. Copy provided and Copy in chart dated, and initialed.
[2023-03-07] MEDS: enoxaparin 40 mg/0.4 mL Syringe SUBCUT ×2 (13:45→23:32)
--- NOTE | 2023-03-07 16:38 | PM.PN ---
Subjective Subjective: patient was seen this morning, daughter at bedside, she tells me she can ambulate a bit more today,has muscle weakness Vitals/I&O/Wt Last Vital Signs Temp 98.4 F 03/07/23 08:00 Pulse 80 03/07/23 16:26 Resp 20 H 03/07/23 16:00 BP 108/57 03/07/23 12:00 Pulse Ox 98 03/07/23 16:00 O2 Del Method Nasal Cannula 03/07/23 16:00 O2 Flow Rate 2 03/07/23 16:00 FiO2 35 03/03/23 16:00 03/07/23 03/07/23 03/07/23 06:59 14:59 22:59 Intake Total 500 / 1040 951 / 951 Balance 500 / 1040 951 / 951 Physical Exam Const: COMMON NORMALS: no acute distress and patient oriented x3 Resp: COMMON NORMALS: normal respiratory effort, No retractions, No use of accessory muscles and clear to auscultation bilaterally AUSCULTATION: clear to auscultation bilaterally Cardio: COMMON NORMALS: regular rate, regular rhythm, S1 normal heart sound present and S2 normal heart sound present RATE: regular rate RHYTHM: regular rhythm HEART SOUNDS: S1 normal heart sound present and S2 normal heart sound present GI: COMMON NORMALS: Normal to inspection, nondistended, normoactive bowel sounds present and non-tender Extremity: COMMON NORMALS: no pedal edema Neuro: COMMON NORMALS: patient oriented x3 Psych: COMMON NORMALS: mental status grossly normal Data 03/06/23 02:31 03/07/23 01:55 A&P Assessment and plan (1) Respiratory failure with hypoxia and hypercapnia: - Continue home trilogy machine -Monitor respiratory status closely -Continue DuoNeb -Continue budesonide -Continue Decadron -Sputum cultures in the past have grown E. coli, Pseudomonas -Hold off on antibiotic therapy for now, sputum culture (2) COPD (chronic obstructive pulmonary disease): (3) Atrial fibrillation with RVR: -Having paroxysmal A-fib now -Continue Cardizem 30 every 6 hour -Continue metoprolol 12.5 twice daily -Therapeutic Lovenox (4) Protein calorie malnutrition: - Consult dietary (5) Physical deconditioning: - PT OT Plan Plan for today, up out of bed, up out of bed, continue steroids, monitor heart rate Full code currently Lovenox for DVT prophylaxis Attestations Medical Necessity Statement*: patient requires hospitalization for copd exacerbtion Coding Level of Care Code Acute Code for Chg Fwd Diagnoses Respiratory failure with hypoxia and hypercapnia J96.91; J96.92 COPD (chronic obstructive pulmonary disease) J44.9 Atrial fibrillation with RVR I48.91 Protein calorie malnutrition E46 Physical deconditioning R53.81
[2023-03-07] MEDS: dexamethasone 10 mg/mL INJ 6 MG IVP (17:35)
[2023-03-08] VITALS (15 sets, daily range): BP systolic 97–120; BP diastolic 54–67; PULSE 64–84; RESP 13–18; TEMP 36.5–37.1; O2SAT 96–99
[2023-03-08] MEDS: dilTIAZem 30 mg Tablet PO ×4 (03:16→20:49)
[2023-03-08] MEDS: ipratropium 0.5 mg/2.5 mL Neb INHALATION ×5 (03:36→20:24)
[2023-03-08] MEDS: levalbuterol 0.63 mg/3 mL Neb INHALATION ×5 (03:36→20:24)
[2023-03-08 04:40] LABS: Basophils % 0.5 %; Hematocrit 36.3 % (37.0-47.0); Hemoglobin 10.8 g/dL (11.5-15.3); Lymphocytes # 0.5 10^3/uL (0.8-4.8); Lymphocytes % 7.7 %; Mean Corpuscular HGB Conc 29.8 g/dL (30.0-36.0); Mean Corpuscular Hemoglobin 27.7 pg (28.0-34.0); Mean Corpuscular Volume 93.1 fl (81-99); Mean Platelet Volume 9.7 fL (7.4-10.4); Monocytes # 0.4 10^3/uL (0.2-0.9); Monocytes % 6.8 %; Neutrophils # 4.82 10^3/uL (1.8-7.7); Neutrophils % 80.3 %; Nucleated Red Blood Cells % 0 %; Platelet Count 427 10^3/cmm (130-400); Red Cell Distribution Width 15.8 % (12.1-15.1)
[2023-03-08 04:54] LABS: Blood Urea Nitrogen 26 mg/dL (8-23); Calcium 9.9 mg/dL (8.5-10.5); Carbon Dioxide 38 mmol/L (22-29); Chloride 92 mmol/L (98-107); Glucose 145 mg/dL (65-115); Osmolality Calculated 289 mOsm/kg (285-295); Sodium 136 mmol/L (136-145)
[2023-03-08] MEDS: budesonide 0.5 mg/2 mL Neb INHALATION ×2 (07:33→20:24)
[2023-03-08] MEDS: azithromycin 250 mg Tablet PO (08:22)
[2023-03-08] MEDS: roflumilast 500 mcg Tablet PO (08:23)
[2023-03-08] MEDS: metoprolol tartrate 25 mg Tablet 12.5 MG PO ×2 (08:23→17:34)
[2023-03-08] MEDS: pantoprazole DR 40 mg Tablet PO (08:23)
--- NOTE | 2023-03-08 09:56 | CT_ITS ---
WS: [id number] CT CHEST TECHNIQUE: Noncontrast CT of the chest with coronal and sagittal reformatted images. CLINICAL INFORMATION: sob COMPARISON: CTA chest November 22, 2022 DLP: 208.[address] scans at [facility] use at least one of these dose optimization techniques: automated e xposure control; mA and/or kV adjustment per patient size (includes targeted exams where dose is matc hed to clinical indication); or iterative reconstruction. FINDINGS: Advanced chronic emphysematous changes. Traction bronchiectasis and fibrosis in the lung apices uncha nged. 6 mm subpleural nodule LEFT lower lobe unchanged. No new suspicious pulmonary parenchymal opaci ties. A few calcified granulomas. No mediastinal or hilar lymphadenopathy. No axillary lymphadenopath y. Tiny esophageal hiatal hernia. Multiple chronic appearing compression fractures in the mid and lower thoracic spine and upper lumbar spine similar in appearance. Prior kyphoplasty changes. CT/CT chest wo con [id number] IMPRESSION: 1. Advanced chronic emphysematous changes with bulla formation is stable in ap pearance. 2. Traction bronchiectasis and fibrosis in the lung apices unchanged. 3. Stable 6 mm subpleural nodule LEFT lower lobe. 4. No mediastinal or hilar lymphadenopathy. 5. Aortic calcification and coronary calcification. 6. Chronic compression fractures some with kyphoplasty changes stable in appea val
[2023-03-08] MEDS: FUROsemide 10 mg/mL SDV 2mL 20 MG IVP (10:23)
[2023-03-08] MEDS: apixaban 5 mg Tablet 2.5 MG PO ×2 (10:23→20:49)
[2023-03-08 10:47] LABS: NT Pro B Type Natriuretic Pept 246 pg/mL (0-125); Procalcitonin 0.04 ng/mL (0-0.5)
--- NOTE | 2023-03-08 17:18 | PM.PN ---
Subjective Subjective: Patient was seen this morning Patient's daughter is at bedside She continues to feel short of breath with exertion, on Wednesday she did well but yesterday she was short of breath with getting up to use the bathroom, No fevers overnight Ordered a CT of the chest, Pro-Ash, CRP We will also give her 1 dose of Lasix She does report feeling anxious, will try Xanax as needed Spoke to Dr. Boykin, We will hold off on antibiotic therapy sputum cultures pending Stop Lovenox, switch to Eliquis Vitals/I&O/Wt Last Vital Signs Temp 98.6 F 03/08/23 16:00 Pulse 77 03/08/23 16:00 Resp 17 03/08/23 16:00 BP 112/61 03/08/23 16:00 Pulse Ox 99 03/08/23 16:00 O2 Del Method Nasal Cannula 03/08/23 16:00 O2 Flow Rate 3 03/08/23 15:57 FiO2 35 03/03/23 16:00 03/08/23 03/08/23 03/08/23 06:59 14:59 22:59 Intake Total 100 / 2023 837 / 837 Output Total 300 / 300 1350 / 1350 Balance -200 / 1723 -513 / -513 Physical Exam Const: COMMON NORMALS: no acute distress and patient oriented x3 Resp: COMMON NORMALS: normal respiratory effort, No retractions and No use of accessory muscles OTHER: Scattered wheezing on examination Cardio: COMMON NORMALS: regular rate, regular rhythm, S1 normal heart sound present and S2 normal heart sound present RATE: regular rate RHYTHM: regular rhythm HEART SOUNDS: S1 normal heart sound present and S2 normal heart sound present GI: COMMON NORMALS: Normal to inspection, nondistended, normoactive bowel sounds present and non-tender Extremity: COMMON NORMALS: no pedal edema Neuro: COMMON NORMALS: patient oriented x3 Psych: COMMON NORMALS: mental status grossly normal Data 03/08/23 03:29 03/08/23 03:29 Micro: Microbiology 03/06/23 19:00 Gram Stain - Final Sputum - Expectorated Sputum Sputum Culture - Preliminary A&P Assessment and plan (1) Respiratory failure with hypoxia and hypercapnia: - Continue home trilogy machine -Monitor respiratory status closely -Continue DuoNeb -Continue budesonide -Continue Decadron -Sputum cultures in the past have grown E. coli, Pseudomonas -Hold off on antibiotic therapy for now, sputum culture (2) COPD (chronic obstructive pulmonary disease): (3) Atrial fibrillation with RVR: -Having paroxysmal A-fib now -Continue Cardizem 30 every 6 hour -Continue metoprolol 12.5 twice daily -Stop Lovenox, switch to Eliquis therapy (4) Protein calorie malnutrition: - Consult dietary (5) Physical deconditioning: - PT OT Plan Plan for today, up out of bed, up out of bed, continue steroids, monitor heart rate Full code currently Lovenox for DVT prophylaxis Patient was seen this morning Patient's daughter is at bedside She continues to feel short of breath with exertion, on Wednesday she did well but yesterday she was short of breath with getting up to use the bathroom, No fevers overnight Ordered a CT of the chest, Pro-Ash, CRP We will also give her 1 dose of Lasix She does report feeling anxious, will try Xanax as needed Spoke to Dr. Boykin, We will hold off on antibiotic therapy sputum cultures pending Stop Lovenox, switch to Eliquis Had extensive discussion with patient's daughter, patient, Dr. Boykin, nursing staff Attestations Medical Necessity Statement*: Patient requires hospitalization for COPD exacerbation, persistent shortness of breath requiring further work-up and evaluation, Diagnoses Respiratory failure with hypoxia and hypercapnia J96.91; J96.92 COPD (chronic obstructive pulmonary disease) J44.9 Atrial fibrillation with RVR I48.91 Protein calorie malnutrition E46 Physical deconditioning R53.81
[2023-03-08] MEDS: dexamethasone 10 mg/mL INJ 6 MG IVP (17:35)
[2023-03-08] MEDS: ALPRAZolam 0.5 mg Tablet 0.25 MG PO (18:47)
[2023-03-09] VITALS (16 sets, daily range): BP systolic 96–127; BP diastolic 56–67; PULSE 59–80; RESP 15–26; TEMP 36.3–36.7; O2SAT 96–99
[2023-03-09] MEDS: ipratropium 0.5 mg/2.5 mL Neb INHALATION ×6 (00:08→20:53)
[2023-03-09] MEDS: levalbuterol 0.63 mg/3 mL Neb INHALATION ×6 (00:08→20:53)
[2023-03-09] MEDS: dilTIAZem 30 mg Tablet PO ×4 (02:20→20:59)
[2023-03-09 05:53] LABS: Basophils % 0.2 %; Hematocrit 33.7 % (37.0-47.0); Hemoglobin 10.3 g/dL (11.5-15.3); Lymphocytes # 0.5 10^3/uL (0.8-4.8); Lymphocytes % 7.2 %; Mean Corpuscular HGB Conc 30.6 g/dL (30.0-36.0); Mean Corpuscular Hemoglobin 28.3 pg (28.0-34.0); Mean Corpuscular Volume 92.6 fl (81-99); Mean Platelet Volume 9.2 fL (7.4-10.4); Monocytes # 0.6 10^3/uL (0.2-0.9); Monocytes % 8.9 %; Neutrophils # 5.04 10^3/uL (1.8-7.7); Neutrophils % 78.7 %; Nucleated Red Blood Cells % 0 %; Platelet Count 390 10^3/cmm (130-400); Red Blood Count 3.64 10^6/uL (4.1-5.3); Red Cell Distribution Width 15.5 % (12.1-15.1); White Blood Count 6.4 10^3/uL (4.0-10.0)
[2023-03-09 06:11] LABS: Anion Gap 7.9 (5-19); Blood Urea Nitrogen 24 mg/dL (8-23); Calcium 9.7 mg/dL (8.5-10.5); Chloride 93 mmol/L (98-107); Glucose 127 mg/dL (65-115); Osmolality Calculated 292 mOsm/kg (285-295); Potassium 4.9 mmol/L (3.5-5.1); Sodium 138 mmol/L (136-145)
[2023-03-09 06:14] LABS: Carbon Dioxide 42 mmol/L (22-29)
[2023-03-09] MEDS: pantoprazole DR 40 mg Tablet PO (08:58)
[2023-03-09] MEDS: apixaban 5 mg Tablet 2.5 MG PO ×2 (08:58→20:59)
[2023-03-09] MEDS: metoprolol tartrate 25 mg Tablet 12.5 MG PO ×2 (08:58→17:29)
[2023-03-09] MEDS: budesonide 0.5 mg/2 mL Neb INHALATION ×2 (08:59→20:53)
[2023-03-09] MEDS: roflumilast 500 mcg Tablet PO (08:59)
--- NOTE | 2023-03-09 10:48 | P.PN_ITS ---
Subjective Subjective: Patient seen this morning at bedside with her [id number] Continues to be on 3 L oxygen-at times becoming short of breath-CT chest yesterday did not show any infiltrate. It showed the same chronic advanced chronic emphysematous changes with bulla formation, traction bronchiectasis and fibrosis, stable 6 mm subpleural nodule left lower lobe. Started on low-dose Xanax for anxiety Other labs and imaging reviewed Medications: Reviewed: Yes Vitals/I&O/Wt Last Vital Signs Temp 98.0 F 03/09/23 08:00 Pulse 80 03/09/23 08:59 Resp 16 03/09/23 08:59 BP 126/64 03/09/23 08:00 Pulse Ox 99 03/09/23 08:59 O2 Del Method Nasal Cannula 03/09/23 08:59 O2 Flow Rate 3 03/09/23 08:59 FiO2 35 03/03/23 16:00 03/08/23 03/09/23 03/09/23 22:59 06:59 14:59 Intake Total 840 / 1677 100 / 1777 360 / 360 Output Total 300 / 1650 0 / 1650 Balance 540 / 27 100 / 127 360 / 360 Physical Exam Narrative: General: alert, NAD HEENT: conj clear, EOMI, PERRL, mmm, Neck: supple, no meningismus Heme: no cervical LAP Respiratory: Inspection: No visible deformity of the chest wall Palpation: Trachea is mildly deviated to the right, bilateral symmetric expansion Percussion: Bilateral tympanic percussion note both anterior and posteriorly Auscultation: Bilateral clear to auscultation both anterior and posteriorly, no crackles wheezing or rhonchi Cardiovascular: rrr, nl s1s2, no mrg Abdomen: soft, nt, nd, no r/g, bs+ Extremities: pulses +, no edema, no c/c : no CVA tenderness Skin: intact, no rash MSK: no back or neck pain Neurologic: grossly intact Data 03/09/23 05:35 03/09/23 05:35 Other Labs: Radiology Impressions Chest X-Ray 03/02/23 20:58 IMPRESSION: 1. Stable biapical pleuroparenchymal fibrosis. 2. Emphysematous changes. Modified Barium Swallow 03/04/23 08:36 IMPRESSION: 1. No aspiration or penetration identified. Additional information and recommendations will follow from the speech therapy service. [address] 03/08/23 09:56 IMPRESSION: 1. Advanced chronic emphysematous changes with bulla formation is stable in appearance. 2. Traction bronchiectasis and fibrosis in the lung apices unchanged. 3. Stable 6 mm subpleural nodule LEFT lower lobe. 4. No mediastinal or hilar lymphadenopathy. 5. Aortic calcification and coronary calcification. 6. Chronic compression fractures some with kyphoplasty changes stable in appearance Laboratory Results WBC 6.4 10^3/uL (4.0-10.0) 03/09/23 05:35 RBC 3.64 10^6/uL (4.1-5.3) L 03/09/23 05:35 Hgb 10.3 g/dL (11.5-15.3) L 03/09/23 05:35 Hct 33.7 % (37.0-47.0) L 03/09/23 05:35 MCV 92.6 fl (81-99) 03/09/23 05:35 MCH 28.3 pg (28.0-34.0) 03/09/23 05:35 MCHC 30.6 g/dL (30.0-36.0) 03/09/23 05:35 RDW 15.5 % (12.1-15.1) H 03/09/23 05:35 Plt Count 390 10^3/cmm (130-400) 03/09/23 05:35 MPV 9.2 fL (7.4-10.4) 03/09/23 05:35 Neut % (Auto) 78.7 % 03/09/23 05:35 Lymph % (Auto) 7.2 % 03/09/23 05:35 Jasper % (Auto) 8.9 % 03/09/23 05:35 Eos % (Auto) 0.0 % 03/09/23 05:35 Baso % (Auto) 0.2 % 03/09/23 05:35 Neut # (Auto) 5.04 10^3/uL (1.8-7.7) 03/09/23 05:35 Lymph # (Auto) 0.5 10^3/uL (0.8-4.8) L 03/09/23 05:35 Jasper # (Auto) 0.6 10^3/uL (0.2-0.9) 03/09/23 05:35 Eos # (Auto) 0.0 10^3/uL (0.0-0.8) 03/09/23 05:35 Baso # (Auto) 0.0 10^3/uL (0.0-0.1) 03/09/23 05:35 Nucleated RBC % (auto) 0 % 03/09/23 05:35 Nucleated RBCs # 0.0 /100WBC 03/09/23 05:35 PT 13.50 SECONDS (12.1-14.9) 03/04/23 04:52 INR 1.00 (0.8-1.2) 03/04/23 04:52 Specimen Type Arterial 03/02/23 20:58 Sample Site Not specified 03/02/23 20:58 ABG pH 7.30 (7.35-7.45) L 03/02/23 20:58 ABG pCO2 90.9 mmHg (35-45) H* 03/02/23 20:58 ABG pO2 229.0 mmHg (80.0-100.0) H 03/02/23 20:58 ABG HCO3 44.3 mmol/L (22-26) H 03/02/23 20:58 ABG Base Excess 14.4 mmol/L (-2.0-2.0) H 03/02/23 20:58 Nikolas Test Pos 03/02/23 20:58 Hematocrit 34.3 % (37-47) L 03/02/23 20:58 Hgb O2 Saturation 97.7 % (95-100) 03/02/23 20:58 Carboxyhemoglobin 2.0 %THgb (0.4-20.1) 03/02/23 20:58 Methemoglobin 0.8 % (0.4-1.5) 03/02/23 20:58 Total Hemoglobin 11.2 g/dL (12-16) L 03/02/23 20:58 O2 Delivery Device Nc 03/02/23 20:58 O2 Liters/Min 6.0 % 03/02/23 20:58 Kerrick Kleaner Operator ID Sneha 03/02/23 20:58 Sodium 138 mmol/L (136-145) 03/09/23 05:35 Potassium 4.9 mmol/L (3.5-5.1) 03/09/23 05:35 Chloride 93 mmol/L (98-107) L 03/09/23 05:35 Carbon Dioxide 42 mmol/L (22-29) H* 03/09/23 05:35 Anion Gap 7.9 (5-19) 03/09/23 05:35 BUN 24 mg/dL (8-23) H 03/09/23 05:35 Creatinine 0.3 mg/dL (0.5-0.9) L 03/09/23 05:35 GFR Calculation Not Reportable 03/09/23 05:35 Glucose 127 mg/dL (65-115) H 03/09/23 05:35 POC Glucose 158 mg/dL (70-110) H 03/06/23 16:14 Calculated Osmolality 292 mOsm/kg (285-295) 03/09/23 05:35 Calcium 9.7 mg/dL (8.5-10.5) 03/09/23 05:35 Phosphorus 3.0 mg/dL (2.5-4.5) 03/04/23 04:52 Magnesium 2.1 mg/dL (1.7-2.3) 03/06/23 02:31 Total Bilirubin 0.2 mg/dL (0.15-1.2) 03/04/23 04:52 AST 11 U/L (0-32) 03/04/23 04:52 ALT 6 U/L (0-33) 03/04/23 04:52 Alkaline Phosphatase 41 U/L (35-105) 03/04/23 04:52 Troponin T Baseline 19 ng/L (0-10) H 03/03/23 11:18 Troponin T 120 Minute 21.62 ng/L (0-10) H 03/03/23 13:30 Delta Troponin T 2.62 ABS# (0-10) 03/03/23 13:30 Troponin T Hi Sens 6Hr 25.40 ng/L (0-10) H 03/03/23 17:18 Troponin T Hi Sens 6Hr Delta 6.40 ng/L (0-12) 03/03/23 17:18 C-Reactive Protein 3.0 mg/L (0.0-4.9) 03/08/23 03:29 NT-Pro-B Natriuret Pep 246 pg/mL (0-125) H 03/08/23 03:29 Total Protein 5.2 g/dL (6.6-8.7) L 03/04/23 04:52 Albumin 3.2 g/dL (3.5-5.2) L 03/04/23 04:52 Globulin 2.0 g/dL (1.3-4.6) 03/04/23 04:52 Procalcitonin 0.04 ng/mL (0-0.5) 03/08/23 03:29 Coronavirus 229E (PCR) Not detected (NOT DETECT) 03/02/23 22:45 SARS-CoV-2 (PCR) Not detected (NOT DETECT) 03/02/23 22:45 Micro: Microbiology 03/06/23 19:00 Gram Stain - Final Sputum - Expectorated Sputum Sputum Culture - Preliminary A&P Assessment and plan (1) Respiratory failure with hypoxia and hypercapnia: Secondary to COPD exacerbation Currently requiring 3 L supplemental oxygen only and saturating 98%-she is at her baseline home oxygen requirement (2) Acute exacerbation of chronic obstructive airways disease: CT chest during this admission - did not reveal any acute process Currently on dexamethasone 6 mg IV daily-we can switch to p.o. prednisone 20 daily from tomorrow for 3 days, followed by 10 Mg for 3 days and will continue prednisone 5 Mg daily thereafter Scheduled nebulizations Currently on azithromycin 3 times weekly MRSA nares negative; sputum cultures negative (previously sputum culture December 2019 showed E. coli/Pseudomonas/Acinetobacter; January 2023 showed pansensitive E. coli only) (3) Physical deconditioning: From end-stage COPD She has physical therapy coming to home (4) COPD (chronic obstructive pulmonary disease): The patient has gold class D End-stage COPD.? End-stage severe PAD with FEV1 29% She has very severe airflow obstruction on pulmonary function test and profound emphysema on the CT scan. Saturation at 97% on 3L and requires more during exertion. Lately she has been having multiple exacerbations requiring hospital admissions. As outpatient, She is on Roflumilast 500 Mg p.o. daily, along with Advair, Spiriva, azithromycin 250 Mg every other day. I have recently discontinued Advair and Spiriva and switched patient to triple nebulization and recommended to continue along with Roflumilast 500 Mg p.o. daily and azithromycin 250 Mg every other day Making arrangements to get triple nebulizations to her home She is even enrolled into pulmonary rehab which she is currently on hold due to hospital admissions (5) Atrial fibrillation with RVR: Currently she is on Cardizem drip and metoprolol 12.5 Mg p.o. twice daily her rate is controlled Currently on Eliquis 2.5 Mg p.o. twice daily (6) Mass of upper lobe of left lung: A low-dose CT scan for lung cancer screening in November 2021 revealed significant emphysematous changes.? Stable cavitary lesion in the left upper lobe.? Additionally, 7 mm nodule was seen in the left lower lobe. CT chest november 2022: No change in the noncalcified pleural-based nodule measuring 6 mm in diameter LEFT lower lobe. Severe bullous emphysema. There are numerous bulla and bleb formations predominantly in the upper lobes. Centrilobular emphysema. Fibrotic changes at the lung apices. ? we are not following on LDCT as? the patient had very significant decline in her pulmonary function test And she decided not to continue with any further work-up for cancer.? Attestations Medical Necessity Statement*: Referred to hospitalist Time Spent in Patient Care: Greater than 35 minutes (>than 50% of time spent in counselling and/or direct pt care on unit) . Coding Level of Care Code 24641 Diagnoses Respiratory failure with hypoxia and hypercapnia J96.91; J96.92 Acute exacerbation of chronic obstructive airways disease J44.1 Physical deconditioning R53.81 COPD (chronic obstructive pulmonary disease) J44.9 Atrial fibrillation with RVR I48.91 Mass of upper lobe of left lung R91.8 Time Spent (min) 37
--- NOTE | 2023-03-09 10:50 | PC.SOCIAL ---
[facility] IMM update: pg 2 of IMM dated and reviewed with pt. Copy provided. Copy dated/initialed and placed in pt chart at 0840
--- NOTE | 2023-03-09 16:23 | P.PN_ITS ---
Subjective Subjective: Patient was seen this morning, she tells me that the alprazolam did help with her tremors or anxiety, but she tells me it knocked her off her feet, she did get a lot of sleep last night, she does have pain under her right SI joint, she continues to have episodes of shortness of breath with exertion no fevers, no chills, has a nonproductive cough Vitals/I&O/Wt Last Vital Signs Temp 98.0 F 03/09/23 08:00 Pulse 76 03/09/23 15:21 Resp 16 03/09/23 15:08 BP 123/57 03/09/23 12:00 Pulse Ox 97 03/09/23 15:08 O2 Del Method Nasal Cannula 03/09/23 15:08 O2 Flow Rate 3 03/09/23 15:08 FiO2 35 03/03/23 16:00 03/09/23 03/09/23 03/09/23 06:59 14:59 22:59 Intake Total 100 / 1777 720 / 720 Output Total 0 / 1650 Balance 100 / 127 720 / 720 Physical Exam Const: COMMON NORMALS: no acute distress and patient oriented x3 Resp: COMMON NORMALS: normal respiratory effort, No retractions and No use of accessory muscles AUSCULTATION: wheezes Cardio: COMMON NORMALS: regular rate, regular rhythm, S1 normal heart sound present and S2 normal heart sound present RATE: regular rate RHYTHM: regular rhythm HEART SOUNDS: S1 normal heart sound present and S2 normal heart sound present GI: COMMON NORMALS: Normal to inspection, nondistended, normoactive bowel sounds present and non-tender Extremity: COMMON NORMALS: no pedal edema Neuro: COMMON NORMALS: patient oriented x3 Psych: COMMON NORMALS: mental status grossly normal Data 03/09/23 05:35 03/09/23 05:35 Micro: Microbiology 03/06/23 19:00 Gram Stain - Final Sputum - Expectorated Sputum Sputum Culture - Final A&P Assessment and plan (1) Respiratory failure with hypoxia and hypercapnia: - Continue home trilogy machine -Monitor respiratory status closely -Continue DuoNeb -Continue budesonide -Continue Decadron -Sputum cultures in the past have grown E. coli, Pseudomonas, so far sputum cultures no growth -Hold off on antibiotic therapy for now, sputum culture (2) COPD (chronic obstructive pulmonary disease): (3) Atrial fibrillation with RVR: -Having paroxysmal A-fib now -Continue Cardizem 30 every 6 hour -Continue metoprolol 12.5 twice daily -On Eliquis therapy (4) Protein calorie malnutrition: - Consult dietary (5) Physical deconditioning: - PT OT Plan Plan for today, up out of bed, up out of bed, continue steroids, monitor heart rate, decrease Xanax doses 0.125 daily, topical lidocaine patch, up out of bed Full code currently Eliquis for DVT prophylaxis Attestations Medical Necessity Statement*: Patient requires hospitalization for COPD exacerbation Diagnoses Respiratory failure with hypoxia and hypercapnia J96.91; J96.92 COPD (chronic obstructive pulmonary disease) J44.9 Atrial fibrillation with RVR I48.91 Protein calorie malnutrition E46 Physical deconditioning R53.81
[2023-03-09] MEDS: dexamethasone 10 mg/mL INJ 6 MG IVP (17:28)
[2023-03-09] MEDS: ALPRAZolam 0.5 mg Tablet 0.125 MG PO (19:24)
[2023-03-10] VITALS (14 sets, daily range): BP systolic 108–127; BP diastolic 52–62; PULSE 62–84; RESP 15–22; TEMP 36.5–36.8; O2SAT 92–99
[2023-03-10] MEDS: ipratropium 0.5 mg/2.5 mL Neb INHALATION ×6 (00:58→20:40)
[2023-03-10] MEDS: levalbuterol 0.63 mg/3 mL Neb INHALATION ×6 (00:58→20:40)
[2023-03-10] MEDS: dilTIAZem 30 mg Tablet PO ×4 (03:33→20:45)
[2023-03-10 05:18] LABS: Hematocrit 35.8 % (37.0-47.0); Hemoglobin 10.7 g/dL (11.5-15.3); Mean Corpuscular HGB Conc 29.9 g/dL (30.0-36.0); Mean Corpuscular Hemoglobin 27.9 pg (28.0-34.0); Mean Corpuscular Volume 93.2 fl (81-99); Mean Platelet Volume 9.2 fL (7.4-10.4); Platelet Count 482 10^3/cmm (130-400); Red Blood Count 3.84 10^6/uL (4.1-5.3); Red Cell Distribution Width 15.6 % (12.1-15.1); White Blood Count 8.7 10^3/uL (4.0-10.0)
[2023-03-10 05:45] LABS: Absolute Segmented Neutrophil 6.8 10/cmm (1.6-7.1); Eosinophils 0 %; Lymphocytes 6 %; Monocytes Absolute 0.8 10^3/cmm (0.1-0.6); Segmented Neutrophils 78 %; Slide Review Slide Review Perform; Total Cells Counted 100 (0-100)
[2023-03-10 05:46] LABS: Platelet Estimate Increased (Normal)
[2023-03-10 05:51] LABS: Anion Gap 9.4 (5-19); Blood Urea Nitrogen 28 mg/dL (8-23); Calcium 10.3 mg/dL (8.5-10.5); Chloride 93 mmol/L (98-107); Glucose 134 mg/dL (65-115); Osmolality Calculated 295 mOsm/kg (285-295); Potassium 5.4 mmol/L (3.5-5.1); Sodium 139 mmol/L (136-145)
[2023-03-10 05:54] LABS: Carbon Dioxide 42 mmol/L (22-29)
[2023-03-10] MEDS: budesonide 0.5 mg/2 mL Neb INHALATION ×2 (07:15→20:40)
[2023-03-10] MEDS: metoprolol tartrate 25 mg Tablet 12.5 MG PO ×2 (09:06→17:14)
[2023-03-10] MEDS: apixaban 5 mg Tablet 2.5 MG PO ×2 (09:06→20:45)
[2023-03-10] MEDS: roflumilast 500 mcg Tablet PO (09:06)
[2023-03-10] MEDS: pantoprazole DR 40 mg Tablet PO (09:07)
[2023-03-10] MEDS: azithromycin 250 mg Tablet PO (09:44)
[2023-03-10] MEDS: lidocaine 5% Patch 1 PATCH TOPICAL (09:45)
--- NOTE | 2023-03-10 13:27 | P.PN_ITS ---
Subjective Subjective: Patient was seen this morning, she tells me that the 0.125 of Xanax does help with her anxiety, does help with her breathing, no fevers, no chills, still having shortness of breath but improved compared to yesterday Vitals/I&O/Wt Last Vital Signs Temp 98.2 F 03/10/23 08:00 Pulse 70 03/10/23 11:26 Resp 19 H 03/10/23 11:26 BP 110/52 03/10/23 11:26 Pulse Ox 98 03/10/23 11:26 O2 Del Method Nasal Cannula 03/10/23 11:26 O2 Flow Rate 3 03/10/23 11:16 FiO2 35 03/03/23 16:00 03/09/23 03/10/23 03/10/23 22:59 06:59 14:59 Intake Total 460 / 1180 480 / 480 Output Total 0 / 0 800 / 800 Balance 460 / 1180 -800 / 380 480 / 480 Physical Exam Const: COMMON NORMALS: no acute distress and patient oriented x3 Resp: COMMON NORMALS: normal respiratory effort, No retractions and No use of accessory muscles AUSCULTATION: wheezes Cardio: COMMON NORMALS: regular rate, regular rhythm, S1 normal heart sound present and S2 normal heart sound present RATE: regular rate RHYTHM: regular rhythm HEART SOUNDS: S1 normal heart sound present and S2 normal heart sound present GI: COMMON NORMALS: Normal to inspection, nondistended, normoactive bowel sounds present and non-tender Extremity: COMMON NORMALS: no pedal edema Neuro: COMMON NORMALS: patient oriented x3 Psych: COMMON NORMALS: mental status grossly normal Data 03/10/23 04:39 03/10/23 04:39 Micro: Microbiology 03/06/23 19:00 Gram Stain - Final Sputum - Expectorated Sputum Sputum Culture - Final A&P Assessment and plan (1) Respiratory failure with hypoxia and hypercapnia: - Continue home trilogy machine -Monitor respiratory status closely -Continue DuoNeb -Continue budesonide -Continue Decadron -Sputum cultures in the past have grown E. coli, Pseudomonas, so far sputum cultures no growth -Hold off on antibiotic therapy for now, sputum culture (2) COPD (chronic obstructive pulmonary disease): (3) Atrial fibrillation with RVR: -Having paroxysmal A-fib now -Continue Cardizem 30 every 6 hour -Continue metoprolol 12.5 twice daily -On Eliquis therapy (4) Protein calorie malnutrition: - Consult dietary (5) Physical deconditioning: - PT OT Plan Plan for today, up out of bed, up out of bed, continue steroids, monitor heart rate, Xanax 0.125 3 times daily as needed for anxiety, lidocaine patch, de- escalate dexamethasone to p.o. prednisone Full code currently Eliquis for DVT prophylaxis Attestations Medical Necessity Statement*: Patient requires hospitalization for COPD exacerbations Coding Level of Care Code 31256 Moderate MDM includes number and complexity of problems actively addressed during encounter, amount and/or complexity of data reviewed/ordered and described risk of complication, morbidity or mortality of management as docu mented Diagnoses Respiratory failure with hypoxia and hypercapnia J96.91; J96.92 COPD (chronic obstructive pulmonary disease) J44.9 Atrial fibrillation with RVR I48.91 Protein calorie malnutrition E46 Physical deconditioning R53.81
[2023-03-10] MEDS: ALPRAZolam 0.5 mg Tablet 0.125 MG PO ×2 (16:06→23:44)
[2023-03-10] MEDS: predniSONE 20 mg Tablet 40 MG PO (17:13)
[2023-03-11] VITALS (14 sets, daily range): BP systolic 112–131; BP diastolic 53–69; PULSE 62–87; RESP 16–26; TEMP 36.5–36.8; O2SAT 96–100
[2023-03-11] MEDS: levalbuterol 0.63 mg/3 mL Neb INHALATION ×6 (01:07→20:00)
[2023-03-11] MEDS: ipratropium 0.5 mg/2.5 mL Neb INHALATION ×6 (01:07→19:59)
[2023-03-11 03:26] LABS: Anion Gap 8.2 (5-19); Blood Urea Nitrogen 29 mg/dL (8-23); Chloride 92 mmol/L (98-107); Glucose 145 mg/dL (65-115); Osmolality Calculated 290 mOsm/kg (285-295); Potassium 5.2 mmol/L (3.5-5.1); Sodium 136 mmol/L (136-145)
[2023-03-11 03:29] LABS: Carbon Dioxide 41 mmol/L (22-29)
[2023-03-11] MEDS: dilTIAZem 30 mg Tablet PO ×4 (05:44→22:24)
[2023-03-11] MEDS: budesonide 0.5 mg/2 mL Neb INHALATION ×2 (07:15→19:59)
[2023-03-11] MEDS: metoprolol tartrate 25 mg Tablet 12.5 MG PO ×2 (08:20→17:24)
[2023-03-11] MEDS: apixaban 5 mg Tablet 2.5 MG PO ×2 (08:20→22:24)
[2023-03-11] MEDS: pantoprazole DR 40 mg Tablet PO (08:20)
[2023-03-11] MEDS: roflumilast 500 mcg Tablet PO (08:20)
[2023-03-11] MEDS: ALPRAZolam 0.5 mg Tablet 0.125 MG PO ×2 (08:21→17:25)
[2023-03-11] MEDS: lidocaine 5% Patch 1 PATCH TOPICAL (08:21)
--- NOTE | 2023-03-11 09:41 | PC.SOCIAL ---
[facility] IMM update: Pg 2 of IMM dated and reviewed with pt. Copy provided. Copy dated, initialed and placed in chart.
--- NOTE | 2023-03-11 11:53 | PM.DCS ---
Discharge Providers Date of Admission: 03/02/23 22:00 Date of Discharge: March 11, 2023 Attending Provider at Admission: Aime Magaña MD Attending Provider at Discharge: Herbie Cifuentes MD Primary Care Provider: Norman Lazo MD Diagnoses at Discharge Discharge Diagnosis (1) Respiratory failure with hypoxia and hypercapnia: Status: Acute (2) COPD (chronic obstructive pulmonary disease): Status: Inactive (3) Atrial fibrillation with RVR: Status: Acute (4) Protein calorie malnutrition: Status: Acute (5) Physical deconditioning: Status: Acute Reason for Visit Reason for Visit: RESP. DISTRESS Hospital Course Hospital Course This is a 73-year-old female with a past medical history of COPD who presents to [facility] for shortness of breath Patient was admitted to [facility] for COPD exacerbation, received clinical monitoring, steroid therapy, home ventilator therapy, overall she clinically improved, discharged on a long prednisone taper Patient had episodes of A-fib with RVR during hospitalization, managed with Cardizem, metoprolol, anticoagulation therapy, overall she clinically improved. Discharged on Cardizem, metoprolol, low-dose Eliquis with a close follow-up with cardiology as outpatient She did have complaints of right upper quadrant pain during her hospitalization, on 03/12/2023, her abdominal exam was benign, no recurrent nausea or vomiting, liver function within normal limits, lipase within normal limits, abdominal ultrasound within normal limits, discharged with close monitoring She did have hyperkalemia on discharge received insulin, D50 She did develop anemia during hospitalization she is on Eliquis, discharged on Protonix, Carafate, if she were to have any bloody or black stools to go to the emergency room, see primary care provider on Wednesday for recheck CBC. If she develops further anemia we might have to stop Eliquis, discussed morbidity and mortality associate with GI bleeds, she voiced understanding, all questions answered Discharged on low-dose alprazolam 0.125 every 6 hours as needed for anxiety, to be used sparingly, do not drive or operate machinery or drink while taking medication. I gave her a 7-day supply, follow-up with primary care provider Physical Exam Const: COMMON NORMALS: no acute distress and patient oriented x3 Resp: COMMON NORMALS: normal respiratory effort, No retractions, No use of accessory muscles and clear to auscultation bilaterally AUSCULTATION: clear to auscultation bilaterally Cardio: COMMON NORMALS: regular rate, regular rhythm, S1 normal heart sound present and S2 normal heart sound present RATE: regular rate RHYTHM: regular rhythm HEART SOUNDS: S1 normal heart sound present and S2 normal heart sound present GI: COMMON NORMALS: Normal to inspection, nondistended, normoactive bowel sounds present and non-tender Extremity: COMMON NORMALS: no pedal edema Neuro: COMMON NORMALS: patient oriented x3 Psych: COMMON NORMALS: mental status grossly normal Discharge Data Studies Completed and Pending Completed Studies During Hospitalization Category Date Time Status CT chest wo con [id number] Routine Cat Scan 03/08/23 09:56 Completed Modified barium swallow [FL barium swallow modifd [id number] Exams 03/04/23 08:36 Completed ] Routine XR chest 1V portable [id number] Stat Exams 03/02/23 20:58 Completed Pending at discharge Category Date Time Status Basic Metabolic Panel AM LABS Lab 03/12/23 04:00 Ordered Basic Metabolic Panel AM LABS Lab 03/13/23 04:00 Ordered Radiology Impressions Chest X-Ray 03/02/23 20:58 IMPRESSION: 1. Stable biapical pleuroparenchymal fibrosis. 2. Emphysematous changes. Modified Barium Swallow 03/04/23 08:36 IMPRESSION: 1. No aspiration or penetration identified. Additional information and recommendations will follow from the speech therapy service. Chest CT 03/08/23 09:56 IMPRESSION: 1. Advanced chronic emphysematous changes with bulla formation is stable in appearance. 2. Traction bronchiectasis and fibrosis in the lung apices unchanged. 3. Stable 6 mm subpleural nodule LEFT lower lobe. 4. No mediastinal or hilar lymphadenopathy. 5. Aortic calcification and coronary calcification. 6. Chronic compression fractures some with kyphoplasty changes stable in appearance Laboratory Results WBC 8.7 10^3/uL (4.0-10.0) 03/10/23 04:39 RBC 3.84 10^6/uL (4.1-5.3) L 03/10/23 04:39 Hgb 10.7 g/dL (11.5-15.3) L 03/10/23 04:39 Hct 35.8 % (37.0-47.0) L 03/10/23 04:39 MCV 93.2 fl (81-99) 03/10/23 04:39 MCH 27.9 pg (28.0-34.0) L 03/10/23 04:39 MCHC 29.9 g/dL (30.0-36.0) L 03/10/23 04:39 RDW 15.6 % (12.1-15.1) H 03/10/23 04:39 Plt Count 482 10^3/cmm (130-400) H 03/10/23 04:39 MPV 9.2 fL (7.4-10.4) 03/10/23 04:39 Neut % (Auto) 78.7 % 03/09/23 05:35 Lymph % (Auto) Not Reportable 03/10/23 04:39 [place] % (Auto) Not Reportable 03/10/23 04:39 Eos % (Auto) 0.0 % 03/09/23 05:35 Baso % (Auto) 0.2 % 03/09/23 05:35 Neut # (Auto) 5.04 10^3/uL (1.8-7.7) 03/09/23 05:35 Lymph # (Auto) Not Reportable 03/10/23 04:39 [place] # (Auto) Not Reportable 03/10/23 04:39 Eos # (Auto) 0.0 10^3/uL (0.0-0.8) 03/09/23 05:35 Baso # (Auto) 0.0 10^3/uL (0.0-0.1) 03/09/23 05:35 Nucleated RBC % (auto) 0 % 03/09/23 05:35 Total Counted 100 (0-100) 03/10/23 04:39 Atypical Lymphs % Not Reportable 03/10/23 04:39 Segmented Neutrophils 78 % 03/10/23 04:39 Abs Segm Neuts (Man) 6.8 10/cmm (1.6-7.1) 03/10/23 04:39 Band Neutrophils Not Reportable 03/10/23 04:39 Abs Band Neuts (Man) 0.0 10^3/cmm (0.0-1.2) 03/10/23 04:39 Lymphocytes (Manual) 6 % 03/10/23 04:39 Monocytes (Manual) 9.0 % 03/10/23 04:39 Absolute Monocytes 0.8 10^3/cmm (0.1-0.6) H 03/10/23 04:39 Eosinophils (Manual) 0 % 03/10/23 04:39 Absolute Eosinophils 0.0 10^3/cmm (0.0-0.7) 03/10/23 04:39 Basophils (Manual) 0.0 % 03/10/23 04:39 Absolute Basophils 0.0 10^3/cmm (0.0-0.2) 03/10/23 04:39 Metamyelocytes 1.0 % 03/10/23 04:39 Myelocytes 6.0 % 03/10/23 04:39 Nucleated RBCs # 0.0 /100WBC 03/09/23 05:35 Platelet Estimate Increased (Normal) H 03/10/23 04:39 PT 13.50 SECONDS (12.1-14.9) 03/04/23 04:52 INR 1.00 (0.8-1.2) 03/04/23 04:52 Specimen Type Arterial 03/02/23 20:58 Sample Site Not specified 03/02/23 20:58 ABG pH 7.30 (7.35-7.45) L 03/02/23 20:58 ABG pCO2 90.9 mmHg (35-45) H* 03/02/23 20:58 ABG pO2 229.0 mmHg (80.0-100.0) H 03/02/23 20:58 ABG HCO3 44.3 mmol/L (22-26) H 03/02/23 20:58 ABG Base Excess 14.4 mmol/L (-2.0-2.0) H 03/02/23 20:58 Nikolas Test Pos 03/02/23 20:58 Hematocrit 34.3 % (37-47) L 03/02/23 20:58 Hgb O2 Saturation 97.7 % (95-100) 03/02/23 20:58 Carboxyhemoglobin 2.0 %THgb (0.4-20.1) 03/02/23 20:58 Methemoglobin 0.8 % (0.4-1.5) 03/02/23 20:58 Total Hemoglobin 11.2 g/dL (12-16) L 03/02/23 20:58 O2 Delivery Device Nc 03/02/23 20:58 O2 Liters/Min 6.0 % 03/02/23 20:58 Compensation And Benefits Manager ID Sneha 03/02/23 20:58 Sodium 136 mmol/L (136-145) 03/11/23 02:22 Potassium 5.2 mmol/L (3.5-5.1) H 03/11/23 02:22 Chloride 92 mmol/L (98-107) L 03/11/23 02:22 Carbon Dioxide 41 mmol/L (22-29) H 03/11/23 02:22 Anion Gap 8.2 (5-19) 03/11/23 02:22 BUN 29 mg/dL (8-23) H 03/11/23 02:22 Creatinine 0.2 mg/dL (0.5-0.9) L 03/11/23 02:22 GFR Calculation Not Reportable 03/11/23 02:22 Glucose 145 mg/dL (65-115) H 03/11/23 02:22 POC Glucose 158 mg/dL (70-110) H 03/06/23 16:14 Calculated Osmolality 290 mOsm/kg (285-295) 03/11/23 02:22 Calcium 10.0 mg/dL (8.5-10.5) 03/11/23 02:22 Phosphorus 3.0 mg/dL (2.5-4.5) 03/04/23 04:52 Magnesium 2.1 mg/dL (1.7-2.3) 03/06/23 02:31 Total Bilirubin 0.2 mg/dL (0.15-1.2) 03/04/23 04:52 AST 11 U/L (0-32) 03/04/23 04:52 ALT 6 U/L (0-33) 03/04/23 04:52 Alkaline Phosphatase 41 U/L (35-105) 03/04/23 04:52 Troponin T Baseline 19 ng/L (0-10) H 03/03/23 11:18 Troponin T 120 Minute 21.62 ng/L (0-10) H 03/03/23 13:30 Delta Troponin T 2.62 ABS# (0-10) 03/03/23 13:30 Troponin T Hi Sens 6Hr 25.40 ng/L (0-10) H 03/03/23 17:18 Troponin T Hi Sens 6Hr Delta 6.40 ng/L (0-12) 03/03/23 17:18 C-Reactive Protein 3.0 mg/L (0.0-4.9) 03/08/23 03:29 NT-Pro-B Natriuret Pep 246 pg/mL (0-125) H 03/08/23 03:29 Total Protein 5.2 g/dL (6.6-8.7) L 03/04/23 04:52 Albumin 3.2 g/dL (3.5-5.2) L 03/04/23 04:52 Globulin 2.0 g/dL (1.3-4.6) 03/04/23 04:52 Procalcitonin 0.04 ng/mL (0-0.5) 03/08/23 03:29 Coronavirus 229E (PCR) Not detected (NOT DETECT) 03/02/23 22:45 SARS-CoV-2 (PCR) Not detected (NOT DETECT) 03/02/23 22:45 Vitals Last Vital Signs Temp 98.1 F 03/11/23 11:43 Pulse 75 03/11/23 11:43 Resp 20 H 03/11/23 11:43 BP 120/61 03/11/23 11:43 Pulse Ox 98 03/11/23 11:43 O2 Del Method Nasal Cannula 03/11/23 11:43 O2 Flow Rate 3 03/11/23 11:02 FiO2 35 03/03/23 16:00 Discharge Plan Discharge Patient Disposition: Home Health Service Condition: Stable Prescriptions: New alprazolam 0.25 mg tablet 0.125 mg PO Q6H PRN (Reason: Anxiety) 7 Days Qty: 14 0RF Eliquis 5 mg Tablet 2.5 mg PO Q12H 30 Days Qty: 30 0RF prednisone 10 mg tablet See Rx Instructions .ROUTE .COMPLEX Qty: 53 0RF Rx Instructions: 4 tabs for 5 days, 3 tabs for 5 days, 2 tabs for 5 days, 1 tab for 5 days, 0.5 tabs for 5 days Cardizem 60 mg tablet 60 mg PO Q12H 30 Days Qty: 60 0RF Carafate 1 gram tablet 1 g PO BID 30 Days Qty: 60 0RF Continued azithromycin 250 mg tablet 250 mg PO .3 times weekly Qty: 36 3RF Rx Instructions: Take 1 tab (250mg) on Mondays, Wednesdays, and Fridays (DME) oxygen small bottle See Rx Instructions .Route .MEDSUPPLY Qty: 1 0RF Rx Instructions: switch condensor to small tank budesonide 0.5 mg/2 mL suspension for nebulization 0.5 mg inhalation BID Qty: 60 6RF formoterol fumarate [Perforomist] 20 mcg/2 mL solution for nebulization 2 ml inhalation BID Qty: 120 6RF Yupelri 175 mcg/3 mL solution for nebulization 175 mcg inhalation DAILY Qty: 90 6RF levocetirizine 5 mg tablet 5 mg PO DAILY Qty: 30 5RF albuterol sulfate [Ventolin HFA] 90 mcg/actuation HFA aerosol inhaler 1 puff INHALATION TID PRN (Reason: Shortness Of Breath) Qty: 18 3RF cholecalciferol (vitamin D3) [Vitamin D3] 25 mcg (1,000 unit) Tablet 1,000 unit PO DAILY ipratropium-albuterol 0.5 mg-3 mg(2.5 mg base)/3 mL solution for nebulization 3 ml INHALATION TID roflumilast 500 mcg Tablet 500 mcg PO DAILY Qty: 90 0RF furosemide [Lasix] 20 mg tablet 20 mg PO DAILY PRN (Reason: edema) Qty: 60 0RF Rx Instructions: Take potassium with Lasix potassium chloride 20 mEq tablet extended release 20 meq PO DAILY PRN (Reason: Only with Lasix) Qty: 60 0RF Rx Instructions: Only with Lasix Calcium 600 600 mg calcium (1,500 mg) Tablet 600 mg PO DAILY fluticasone propion-salmeterol 100-50 mcg/dose blister with device 1 ea INHALATION BID Spiriva with HandiHaler 18 mcg capsule, w/inhalation device 1 cap INHALATION DAILY metoprolol tartrate 25 mg tablet 12.5 mg PO BID 30 Days Qty: 30 0RF Lumigan 0.01 % drops 1 drp ophthalmic (eye) BEDTIME Rx Instructions: both eyes Changed pantoprazole 40 mg tablet,delayed release (DR/EC) 40 mg PO BIDWM 30 Days Qty: 60 0RF Discontinued levofloxacin 500 mg tablet 500 mg PO DAILY Qty: 7 0RF celecoxib 200 mg capsule 200 mg PO BID Qty: 180 1RF diltiazem HCl 30 mg tablet 30 mg PO BID Discharge Orders: Discharge Order (Routine); Ordered 03/11/23 Ordered By: Herbie Cifuentes Other Ambulatory Orders: DME: Nebulizer with Neb Kit (Order) Location: None Selected Ordered By: Herbie Cifuentes Referrals: [facility] [Outside] [facility]) [Outside] Norman Lazo MD [Primary Care Provider] - 03/22/23 12:00 pm Discharge Diet: Cardiac Discharge Activity: Resume usual activity Patient Instructions: Diltiazem (By mouth) (Cardizem, Cardizem CD, Cardizem LA, Cardizem SR), Sucralfate (By mouth) (Carafate), Alprazolam (By mouth), Prednisone (By mouth) (predniSONE Intensol, Prednicot, Deltasone, Antolin), Pantoprazole (By mouth) (Protonix), Apixaban (By mouth) (Eliquis), A-fib (Atrial Fibrillation) (DC), High Protein / High Calorie Diet (DC), COPD Stoplight, Opioid Safety Activity Restrictions/Additional Instructions: - She needs 3 L of oxygen during the day, 3 L during the night, 4 L on exertion -Take prednisone taper as prescribed -Take Eliquis as prescribed -If you develop bloody or black stools please immediately go to the emergency room -Take Cardizem 60 twice daily with metoprolol 12.5 twice daily -If you feel lightheaded or dizzy please hold metoprolol -You will use alprazolam as prescribed for anxiety, please do not use alprazolam with any alcohol, do not drive or operate heavy machinery, if you feel lightheaded or dizzy please stop taking medication Discharge Attestations Time Spent in Discharge Care*: greater than 30 min Status at Discharge: Cognitive status at discharge: cognitively intact, Behavioral status at discharge: cooperative, Quality Metrics Clinical Quality Measures [ No reported AMI, CVA or VTE this stay] Coding Level of Care Code 26305 Total time (in minutes) for Discharge: 45 Diagnoses Respiratory failure with hypoxia and hypercapnia J96.91; J96.92 COPD (chronic obstructive pulmonary disease) J44.9 Atrial fibrillation with RVR I48.91 Protein calorie malnutrition E46 Physical deconditioning R53.81
[2023-03-11] MEDS: ondansetron 2 mg/ML SDV 2 mL 4 MG IVP (12:43)
--- NOTE | 2023-03-11 14:42 | XR_ITS ---
WS: [id number] EXAMINATION: XR KUB portable [id number] REASON FOR EXAM: n/v COMPARISON: None available. ORDER DATE: 03/11/2023 2:42 PM FINDINGS/IMPRESSION: There is a generally increased fecal content and right colon and in the sigmoid colon consistent with constipation. There is no significant small bowel dilatation. No pathologic abd ominal calcifications are noted. Numerous vertebroplasty changes are seen throughout the thoracolumba r spine
[2023-03-11] MEDS: metoclopramide 5 mg/mL SDV 2 mL IVP (15:03)
--- NOTE | 2023-03-11 15:13 | PC.NURSE ---
New Rx called to [facility]
[2023-03-11] MEDS: polyethylene glycol 3350 Pkt 17 gm PO (15:42)
--- NOTE | 2023-03-11 16:24 | US_ITS ---
WS: [id number] RIGHT UPPER QUADRANT ULTRASOUND HISTORY: ruq pain COMPARISON: None available. Liver: 13.9 cm in length. Normal size liver and echogenicity. No bile duct dilatation or mass. Portal Vein: Normal hepatopetal flow with monophasic waveform. Gallbladder: Normally distended gallbladder with no stones or wall thickening. CBD: 0.4 cm Pancreas: Normal size and echogenicity. Right kidney: 11.4 cm in length. Normal size and echogenicity. No hydronephrosis or mass. Aorta and IVC: Unremarkable abdominal aorta and IVC. No ascites. US/US gall bladder [id number] IMPRESSION: Normal RIGHT upper quadrant ultrasound.
[2023-03-11 17:00] LABS: Alanine Aminotransferase 15 U/L (0-33); Albumin Level 3.3 g/dL (3.5-5.2); Alkaline Phosphatase 35 U/L (35-105); Amylase 88 U/L (28-100); Aspartate Amino Transferase 18 U/L (0-32); Gamma Glutamyl Transferase 9 U/L (5-36); Globulin 1.8 g/dL (1.3-4.6); Lipase 32 U/L (13-60); Total Bilirubin 0.2 mg/dL (0.15-1.2); Total Protein 5.1 g/dL (6.6-8.7)
[2023-03-11 17:03] LABS: Procalcitonin 0.04 ng/mL (0-0.5)
[2023-03-11] MEDS: predniSONE 20 mg Tablet 40 MG PO (17:24)
--- NOTE | 2023-03-11 17:31 | PM.PN ---
Subjective Subjective: Patient was seen this morning, she is alert oriented x3, following all commands, patient's daughter is at bedside, she tells me that the alprazolam 0.125 every 8 hours does significantly help with her anxiety, shortness of breath, her anxiety about movement, helps her ease her breathing, we discussed about trying it every 6 hours as she does have episodes of shortness of breath during the day in which she cannot receive the medication due to timing, we discussed about possible discharge home and she was agreeable, in the afternoon, after lunch patient had a large volume of emesis, no fevers, no recurrent nausea vomiting she was reexamined in the afternoon, no recurrent nausea, she does have right upper quadrant tenderness she still has her gallbladder, plan on performing a right upper quadrant ultrasound in the a.m., liver function studies ordered, lipase ordered Vitals/I&O/Wt Last Vital Signs Temp 98.2 F 03/11/23 16:00 Pulse 87 03/11/23 16:00 Resp 22 H 03/11/23 16:00 BP 131/69 03/11/23 16:00 Pulse Ox 96 03/11/23 16:00 O2 Del Method Nasal Cannula 03/11/23 16:00 O2 Flow Rate 3 03/11/23 15:12 FiO2 35 03/03/23 16:00 03/11/23 03/11/23 03/11/23 06:59 14:59 22:59 Intake Total 50 / 1250 1040 / 1040 Output Total 0 / 0 Balance 50 / 1250 1040 / 1040 Physical Exam Const: COMMON NORMALS: no acute distress and patient oriented x3 Resp: COMMON NORMALS: normal respiratory effort, No retractions, No use of accessory muscles and clear to auscultation bilaterally AUSCULTATION: clear to auscultation bilaterally Cardio: COMMON NORMALS: regular rate, regular rhythm, S1 normal heart sound present and S2 normal heart sound present RATE: regular rate RHYTHM: regular rhythm HEART SOUNDS: S1 normal heart sound present and S2 normal heart sound present GI: OTHER: RUQ pain to palpation, has good bowel sounds, no gaurding, no rebound, no rigidity Extremity: COMMON NORMALS: no pedal edema Neuro: COMMON NORMALS: patient oriented x3 Psych: COMMON NORMALS: mental status grossly normal Data 03/10/23 04:39 03/11/23 02:22 A&P Assessment and plan (1) Respiratory failure with hypoxia and hypercapnia: - Continue home trilogy machine -Monitor respiratory status closely -Continue DuoNeb -Continue budesonide -Continue Decadron -Sputum cultures in the past have grown E. coli, Pseudomonas, so far sputum cultures no growth -Hold off on antibiotic therapy for now, sputum culture (2) COPD (chronic obstructive pulmonary disease): (3) Atrial fibrillation with RVR: -Having paroxysmal A-fib now -Continue Cardizem 30 every 6 hour -Continue metoprolol 12.5 twice daily -On Eliquis therapy (4) Protein calorie malnutrition: - Consult dietary (5) Physical deconditioning: - PT OT (6) RUQ pain: Right upper quadrant pain, with large volume emesis, will order lipase, GGT, amylase, liver function studies, right upper quadrant ultrasound we will monitor for 24 hours Plan Plan for today, up out of bed, up out of bed, continue prednisone, monitor heart rate, Xanax 0.125 4 times daily as needed for anxiety, lidocaine patch, de-escalate dexamethasone to p.o. prednisone Right upper quadrant pain, with large volume emesis, will order lipase, GGT, amylase, liver function studies, right upper quadrant ultrasound we will monitor for 24 hours Full code currently Eliquis for DVT prophylaxis Attestations Medical Necessity Statement*: Patient requires hospitalization for right upper quadrant pain Diagnoses Respiratory failure with hypoxia and hypercapnia J96.91; J96.92 COPD (chronic obstructive pulmonary disease) J44.9 Atrial fibrillation with RVR I48.91 Protein calorie malnutrition E46 Physical deconditioning R53.81 RUQ pain R10.11
[2023-03-12] VITALS (11 sets, daily range): BP systolic 109–114; BP diastolic 47–60; PULSE 67–91; RESP 16–22; TEMP 36.5–36.7; O2SAT 92–98
[2023-03-12] MEDS: ipratropium 0.5 mg/2.5 mL Neb INHALATION ×4 (00:16→11:06)
[2023-03-12] MEDS: levalbuterol 0.63 mg/3 mL Neb INHALATION ×4 (00:16→11:07)
[2023-03-12 04:23] LABS: Basophils % 0.4 %; Hematocrit 31.8 % (37.0-47.0); Hemoglobin 9.6 g/dL (11.5-15.3); Lymphocytes # 0.5 10^3/uL (0.8-4.8); Lymphocytes % 5.4 %; Mean Corpuscular HGB Conc 30.2 g/dL (30.0-36.0); Mean Corpuscular Hemoglobin 28.5 pg (28.0-34.0); Mean Corpuscular Volume 94.4 fl (81-99); Mean Platelet Volume 9.2 fL (7.4-10.4); Monocytes # 0.5 10^3/uL (0.2-0.9); Monocytes % 6.5 %; Neutrophils # 6.71 10^3/uL (1.8-7.7); Neutrophils % 80.6 %; Nucleated Red Blood Cells % 0 %; Platelet Count 439 10^3/cmm (130-400); Red Blood Count 3.37 10^6/uL (4.1-5.3); Red Cell Distribution Width 15.7 % (12.1-15.1); White Blood Count 8.3 10^3/uL (4.0-10.0)
[2023-03-12 04:52] LABS: Alanine Aminotransferase 18 U/L (0-33); Albumin Level 3.2 g/dL (3.5-5.2); Alkaline Phosphatase 32 U/L (35-105); Anion Gap 9.7 (5-19); Aspartate Amino Transferase 17 U/L (0-32); Blood Urea Nitrogen 31 mg/dL (8-23); Calcium 9.6 mg/dL (8.5-10.5); Chloride 93 mmol/L (98-107); Globulin 1.7 g/dL (1.3-4.6); Glucose 135 mg/dL (65-115); Magnesium 2.3 mg/dL (1.7-2.3); Osmolality Calculated 297 mOsm/kg (285-295); Phosphorus 4.5 mg/dL (2.5-4.5); Potassium 5.7 mmol/L (3.5-5.1); Slide Review Slide Review Perform; Sodium 139 mmol/L (136-145); Total Bilirubin 0.2 mg/dL (0.15-1.2); Total Protein 4.9 g/dL (6.6-8.7)
[2023-03-12 05:06] LABS: Carbon Dioxide 42 mmol/L (22-29)
[2023-03-12] MEDS: dilTIAZem 30 mg Tablet PO ×2 (05:13→10:17)
[2023-03-12 07:44] LABS: Ferritin 40 ng/mL (15-150); Iron 88 ug/dL (37-145); Percent Saturation 31.2 % (20-50); Total Iron Binding Capacity 282 mcg/dl; Unsaturated Iron Binding 194 ug/dL (112-347)
[2023-03-12] MEDS: insulin regular-human 10 UNIT in SYRINGE 1 EACH IVP (07:47)
[2023-03-12] MEDS: dextrose 50% syringe 50 mL IVP (07:48)
[2023-03-12] MEDS: budesonide 0.5 mg/2 mL Neb INHALATION (07:52)
[2023-03-12] MEDS: pantoprazole DR 40 mg Tablet PO (07:56)
[2023-03-12] MEDS: azithromycin 250 mg Tablet PO (07:56)
[2023-03-12] MEDS: metoprolol tartrate 25 mg Tablet 12.5 MG PO (07:56)
[2023-03-12] MEDS: roflumilast 500 mcg Tablet PO (07:56)
[2023-03-12] MEDS: lidocaine 5% Patch 1 PATCH TOPICAL (07:57)
[2023-03-12] MEDS: apixaban 5 mg Tablet 2.5 MG PO (10:17)
[2023-03-12 12:35] LABS: Basophils # 0.1 10^3/uL (0.0-0.1); Basophils % 0.4 %; Hematocrit 34.9 % (37.0-47.0); Hemoglobin 10.4 g/dL (11.5-15.3); Lymphocytes # 1.3 10^3/uL (0.8-4.8); Lymphocytes % 9.5 %; Mean Corpuscular HGB Conc 29.8 g/dL (30.0-36.0); Mean Corpuscular Hemoglobin 28.3 pg (28.0-34.0); Mean Corpuscular Volume 95.1 fl (81-99); Mean Platelet Volume 9.3 fL (7.4-10.4); Monocytes # 2.1 10^3/uL (0.2-0.9); Monocytes % 15.3 %; Neutrophils # 9.63 10^3/uL (1.8-7.7); Nucleated Red Blood Cells % 0 %; Platelet Count 409 10^3/cmm (130-400); Red Blood Count 3.67 10^6/uL (4.1-5.3); Red Cell Distribution Width 15.6 % (12.1-15.1); White Blood Count 13.8 10^3/uL (4.0-10.0)
[2023-03-12 12:53] LABS: Anion Gap 8.1 (5-19); Blood Urea Nitrogen 28 mg/dL (8-23); Calcium 9.8 mg/dL (8.5-10.5); Carbon Dioxide 40 mmol/L (22-29); Chloride 94 mmol/L (98-107); Glucose 116 mg/dL (65-115); Osmolality Calculated 290 mOsm/kg (285-295); Potassium 5.1 mmol/L (3.5-5.1); Sodium 137 mmol/L (136-145)
== END 2023-03-12 13:45 | disposition home health service (06) | DRG 190 ==
LOC: ER 22:03 → MEDSURG 22:15 → CSU 03-03 14:57
PROVIDERS: Admitting Provider Internal Medicine; Emergency Provider Emergency Medicine; PCP Family Medicine; Visit Provider Family Medicine
DX: J43.9 Emphysema, unspecified (principal); J96.21 Acute and chronic respiratory failure with hypoxia; J96.22 Acute and chronic respiratory failure with hypercapnia; I48.20 Chronic atrial fibrillation, unspecified; I50.30 Unspecified diastolic (congestive) heart failure; E46 Unspecified protein-calorie malnutrition; Z68.1 Body mass index [BMI] 19.9 or less, adult; Z87.891 Personal history of nicotine dependence; Z99.81 Dependence on supplemental oxygen; F41.9 Anxiety disorder, unspecified; M19.90 Unspecified osteoarthritis, unspecified site; M81.0 Age-related osteoporosis without current pathological fracture; J84.10 Pulmonary fibrosis, unspecified; R91.8 Other nonspecific abnormal finding of lung field; M53.3 Sacrococcygeal disorders, not elsewhere classified; D64.9 Anemia, unspecified; Z99.89 Dependence on other enabling machines and devices; R73.9 Hyperglycemia, unspecified; Z79.51 Long term (current) use of inhaled steroids; R10.11 Right upper quadrant pain
CPT/HCPCS: 36415; 36416; 71045; 71250; 74018; 74230; 76705; 80048; 80053; 80076; 82150; 82728; 82805; 82962; 82977; 83540; 83550; 83690; 83735; 83880; 84100; 84145; 84484; 85007; 85025; 85610; 86140; 87070; 87205; 87635; 87641; 92523; 92610; 92611; 93005; 94640; 94660; 94762; 96372; 96374; 96376; 97110; 97161; 97165; 97530; 97535; 99284; 99291; J1100; J1650; J1815; J1940; J2405; J2765; J3490; J7040; J7512; J7614; J7626; J7644; Q0144

== ENCOUNTER → 2023-03-18 08:17 | Outpatient (BNVA) | payer MEDICARE, MEDICAID, SELFPAY | PROVIDERS: PCP Family Medicine; Visit Provider Internal Medicine Pulmonary Disease | DX: J44.9 Chronic obstructive pulmonary disease, unspecified; J96.11 Chronic respiratory failure with hypoxia; J96.12 Chronic respiratory failure with hypercapnia; R91.8 Other nonspecific abnormal finding of lung field; Z87.891 Personal history of nicotine dependence; I73.9 Peripheral vascular disease, unspecified; F41.9 Anxiety disorder, unspecified; Z99.81 Dependence on supplemental oxygen | CPT/HCPCS: 99214 ==

== ENCOUNTER 2023-04-14 10:04 | Outpatient (CLI) | payer MEDICARE, MEDICAID, SELFPAY ==
[2023-03-15 16:39] LABS: Basophils % 0.1 %; Eosinophils # 0.1 10^3/uL (0.0-0.8); Eosinophils % 0.5 %; Hematocrit 33.8 % (37.0-47.0); Hemoglobin 9.9 g/dL (11.5-15.3); Lymphocytes # 1.3 10^3/uL (0.8-4.8); Lymphocytes % 9.1 %; Mean Corpuscular HGB Conc 29.3 g/dL (30.0-36.0); Mean Corpuscular Hemoglobin 28.1 pg (28.0-34.0); Mean Platelet Volume 9.8 fL (7.4-10.4); Monocytes # 1.6 10^3/uL (0.2-0.9); Monocytes % 11.1 %; Neutrophils # 10.95 10^3/uL (1.8-7.7); Neutrophils % 77.3 %; Nucleated Red Blood Cells % 0 %; Platelet Count 359 10^3/cmm (130-400); Red Blood Count 3.52 10^6/uL (4.1-5.3); Red Cell Distribution Width 16.2 % (12.1-15.1); White Blood Count 14.2 10^3/uL (4.0-10.0)
[2023-03-15 16:54] LABS: Alanine Aminotransferase 21 U/L (0-33); Albumin Level 3.2 g/dL (3.5-5.2); Alkaline Phosphatase 39 U/L (35-105); Anion Gap 8.7 (5-19); Aspartate Amino Transferase 17 U/L (0-32); Blood Urea Nitrogen 19 mg/dL (8-23); Calcium 9.6 mg/dL (8.5-10.5); Carbon Dioxide 39 mmol/L (22-29); Chloride 97 mmol/L (98-107); Globulin 2.3 g/dL (1.3-4.6); Glucose 101 mg/dL (65-115); Osmolality Calculated 292 mOsm/kg (285-295); Potassium 4.7 mmol/L (3.5-5.1); Sodium 140 mmol/L (136-145); Total Bilirubin 0.2 mg/dL (0.15-1.2); Total Protein 5.5 g/dL (6.6-8.7)
== END 2023-04-14 10:05 | disposition home or self-care (01) ==
LOC: LAB 10:05
PROVIDERS: PCP Family Medicine; Visit Provider Family Medicine
DX: I48.0 Paroxysmal atrial fibrillation (principal)
CPT/HCPCS: 80053; 85025

== ENCOUNTER 2023-06-05 20:00 | Inpatient (IN) | payer MEDICARE, MEDICAID, SELFPAY ==
[2023-06-05 20:02] VITALS: BP 115/57; PULSE 58; RESP 17; BMI 21.9
--- NOTE | 2023-06-05 20:05 | ECG_ITS ---
[facility] Test Date: 2023-06-05 Pat Name: Marie Hull Department: Room: Gender: Female Guest Services Associate: : 1950 Requested By: Sharan Love Order Number: [id number] Bobby MD: Varsha Hensley M.D. Measurements Intervals [place] Rate: 56 P: 76 MD: 138 QRS: 85 QRSD: 103 T: 77 QT: 400 QTc: 388 Interpretive Statements SINUS BRADYCARDIA EARLY REPOLARIZATION [ST ELEVATION WITH NORMALLY INFLECTED T-WAVE] MODERATE ST DEPRESSION [0.05+ mV ST DEPRESSION] Compared to ECG 03/03/2023 17:48:31 Early repolarization now present ST (T wave) deviation now present Sinus tachycardia no longer present Electronically Signed On 06-07-2023 10:32:33 CDT by Varsha Hensley M.D. [id number]
--- NOTE | 2023-06-05 20:06 | XRR_ITS ---
PROCEDURE INFORMATION: Exam: XR Chest Exam date and time: 06/05/2023 8:38 PM Age: 73 years old Clinical indication: Shortness of breath; Patient HX: SOB TECHNIQUE: Imaging protocol: Radiologic exam of the chest. Views: 1 view. COMPARISON: CT chest con [id number] 03/08/2023 10:11 AM FINDINGS: Lungs: Biapical pleuroparenchymal fibrosis and bullous emphysematous changes, similar to prior exam. Pleural spaces: Unremarkable. No pleural effusion. No pneumothorax. Heart/Mediastinum: Unremarkable. No cardiomegaly. Bones/joints: Unremarkable. XR/XR chest 1V portable [id number] IMPRESSION: Biapical pleuroparenchymal fibrosis and bullous emphysematous changes, similar to prior exam.
[2023-06-05 20:35] LABS: ABG PH Result 7.22 (7.35-7.45); Arterial Blood Gas Hematocrit 32.1 % (37-47); Base Excess ABG 17.9 mmol/L (-2.0-2.0); Blood Gas Allen Test Pos; Blood Gas Sample Type Arterial; Carboxyhemoglobin 3.5 %THgb (0.4-20.1); HCO3 ABG 49.8 mmol/L (22-26); HGB O2 Sat 92.9 % (95-100); Methemoglobin 0.6 % (0.4-1.5); PO2 ABG 91.5 mmHg (80.0-100.0); Total Hemoglobin 10.5 g/dL (12-16)
[2023-06-05 20:36] LABS: Blood Gas Operator Identificat ED; Blood Gas Sample Site Radial, right; Oxygen Device NC
[2023-06-05 20:45] VITALS: PULSE 56; RESP 22; O2SAT 93
[2023-06-05 21:01] LABS: Basophils % 0.4 %; Eosinophils # 0.1 10^3/uL (0.0-0.8); Eosinophils % 0.7 %; Hematocrit 38.3 % (36-47); Lymphocytes # 1.3 10^3/uL (0.8-4.8); Lymphocytes % 13.9 %; Mean Corpuscular HGB Conc 27.7 g/dL (30-55); Mean Corpuscular Hemoglobin 26.6 pg (27-33); Mean Corpuscular Volume 96.2 fl (85-98); Mean Platelet Volume 9.5 fL (7.4-10.4); Monocytes # 0.6 10^3/uL (0.2-0.9); Monocytes % 6.8 %; Neutrophils # 7.12 10^3/uL (1.8-7.7); Nucleated Red Blood Cells % 0 %; Platelet Count 287 10^3/cmm (157-399); Red Blood Count 3.98 10^6/uL (3.85-5.65); White Blood Count 9.13 10^3/uL (3.29-11.43)
[2023-06-05 21:06] VITALS: PULSE 58; RESP 18; O2SAT 97
[2023-06-05] MEDS: ipratropium-albuterol 3 mL Neb INHALATION (21:06)
[2023-06-05 21:22] LABS: Lactic Sepsis W/Reflex 0.8 mmol/L (0.5-2.2)
[2023-06-05 21:24] LABS: Magnesium 2.3 mg/dL (1.7-2.3)
--- NOTE | 2023-06-05 21:24 | ECG_ITS ---
[facility] Test Date: 2023-06-05 Pat Name: Marie Hull Department: Room: ICU11 Gender: Female Multi Disciplined Language Analyst: : 1950 Requested By: Sharan Love Order Number: [id number] Bobby MD: Varsha Hensley M.D. Measurements Intervals [place] Rate: 57 P: -50 MI: 123 QRS: 83 QRSD: 89 T: 82 QT: 395 QTc: 386 Interpretive Statements SINUS BRADYCARDIA ST ELEVATION, CONSIDER EARLY REPOLARIZATION/ PERICARDITIS Compared to ECG 06/05/2023 20:42:03 Myocardial infarct finding now present Early repolarization no longer present ST (T wave) deviation still present Electronically Signed On 06-07-2023 10:32:21 CDT by Varsha Hensley M.D. [id number]
[2023-06-05 21:31] LABS: ABG PH Result 7.31 (7.35-7.45); Arterial Blood Gas Hematocrit 32.1 % (37-47); Base Excess ABG 18.9 mmol/L (-2.0-2.0); Blood Gas Sample Type Arterial; HCO3 ABG 48.9 mmol/L (22-26); PO2 ABG 54.5 mmHg (80.0-100.0)
[2023-06-05 21:32] LABS: ABG PCO2 96.6 mmHg (35-45); Blood Gas Operator Identificat ED; Blood Gas Sample Site Brachial, left; Oxygen Device BIPAP
[2023-06-05 21:50] LABS: NT Pro B Type Natriuretic Pept 363 pg/mL (0-125)
[2023-06-05] MEDS: sodium chloride 0.9% 1,000 ML 999 ML IV (21:50)
--- NOTE | 2023-06-05 22:02 | W.ED.SOB ---
HPI - SOB/Dyspnea General: Chief Complaint: Shortness of Breath/Dyspnea Stated Complaint: LETHARGIC Time Seen by Provider: 06/05/23 20:03 History of Present Illness: HPI Narrative: 73-year-old female with a history of COPD. She presents with slow progression of lethargy over the course of the last day or 2. She has been short of breath. She tells me she has been coughing a bit more. She denies any chest pain. She is quite lethargic on exam, but can answer simple questions as and yes/no questions appropriately. She is also in no respiratory distress. She was placed on oxygen by EMS, and given a DuoNeb treatment. She denies any fever or significant sputum production. Associated symptoms: Deny chest pain, fever(s) or vomiting Review of Systems General: Reports: ROS unobtainable due to mental status Const: Denies: fever(s) Card: Denies: chest pain Resp: Reports: dyspnea and non-productive cough GI: Denies: vomiting PFSH ED PFSH: Medical History Acute exacerbation of chronic obstructive airways disease Acute exacerbation of chronic obstructive airways disease Acute hypercapnic respiratory failure Acute on chronic respiratory failure with hypoxia and hypercapnia Acute on chronic respiratory failure with hypoxia and hypercapnia Atrial fibrillation transient, during acute COPD exacerbation in 2019 Back pain Chest pain Chronic obstructive pulmonary emphysema Chronic respiratory failure with hypoxia and hypercapnia COPD (chronic obstructive pulmonary disease) Diastolic CHF History of echocardiogram 08/2019 EF 65%, grade I/IV diastolic dysfunction, PAP within normal limits History of PFTs 10/2019 severe airflow obstruction, FEV1/FVC of 33%, FEV1 0.57 L 29% predicted, FVC 1.76 L 71% predicted, TLC 107%, RV 163%, reduced DLCO at 25% Hyperkalemia Mass of upper lobe of left lung cavitary appearance, never biopsied due to risk of complication and non-surgical candidate, has been stable on imaging On home oxygen therapy 2-3 L BNC at baseline Osteoarthritis Osteoporosis Paroxysmal A-fib Personal history of nicotine dependence quit in 2018, but still with 2nd hand exposure Pseudomonas aeruginosa colonization Pulmonary fibrosis Pulmonary nodule left lower lobe Seasonal allergies Uses bilevel positive airway pressure (BPAP) ventilation at home [facility], via [facility] Surgical History History of kyphoplasty (2015) L1, L2, L3, L5 performed by Dr. Roman Maruqez Family History Mother CAD (coronary artery disease) Social History Smoking and tobacco/nicotine status: former use of tobacco/nicotine Quit status (tobacco/nicotine): has quit using Year quit tobacco: 2019 - 1PPD x 50 Years Second hand smoke exposure: Yes Alcohol intake: never Substance/Drug Use: never Lives independently: Yes Household members: none Marital status: Current occupational status: retired Do you think of yourself as: Straight/Heterosexual Current gender identity: Female Physical Exam Const: GENERAL APPEARANCE: lethargic, ill appearing and frail appearing NUTRITIONAL APPEARANCE: thin ORIENTATION/CONSCIOUSNESS: Yes oriented to person, Yes oriented to place and Yes lethargic HENMT: COMMON NORMALS: normocephalic, atraumatic and Normal external nose present HEAD & SCALP: normocephalic and atraumatic FACE & SINUS: normal facial exam and face symmetric NOSE: Normal external nose present Eye: COMMON NORMALS: Equal, round and reactive pupils present and EOMs intact bilaterally PUPIL: Yes Equal, round and reactive pupils present Neck/C-Spine: GENERAL: Yes trachea midline Resp: COMMON NORMALS: clear to auscultation bilaterally EFFORT & INSPECTION: Yes symmetric chest movement and Yes decreased respiratory effort AUSCULTATION: clear to auscultation bilaterally and diminished lung sounds Cardio: COMMON NORMALS: regular rhythm RATE: bradycardic RHYTHM: regular rhythm GI: COMMON NORMALS: Normal to inspection, nondistended, normoactive bowel sounds present Extremity: COMMON NORMALS: no pedal edema Neuro: NICOLE COMA SCALE: document GCS findings Nicole coma scale eye opening: To sound [place] coma scale verbal response: Confused [place] coma scale motor response: Obey commands Nicole coma scale total score: 13 SENSORIUM/ORIENTATION: Yes oriented to person, Yes oriented to place, Yes lethargic and Yes somnolent Course Vital Signs: Vital signs: Vital Signs Temperature 97.4 F L 06/06/23 04:00 Pulse Rate 107 H 06/06/23 12:00 Respiratory Rate 25 H 06/06/23 12:00 Blood Pressure 108/59 06/06/23 12:00 Pulse Oximetry 88 L 06/06/23 12:00 Oxygen Delivery Me thod BiPAP 06/06/23 11:39 Oxygen Flow Rate 6 06/05/23 20:02 Fraction of Inspir ed Oxygen 30 06/06/23 11:39 MDM - SOB/Dyspnea Medical Decision Making The patient is quite lethargic on exam, although follows some commands, and answers questions mostly appropriately. She is placed on BiPAP on arrival, given lethargy, likely hide of high PCO2 levels. Respiratory acidosis is significant on initial blood gas testing. Her initial pH is 7.22 with a PCO2 of 120. After being placed on BiPAP, for about an hour, pH is up to 7.31 with a PCO2 down to 97. She is a bit more alert. I talked with the patient's daughter. Object is to attempt to resuscitate her with BiPAP, and not intubation if possible. Chest x-ray stable from prior. CBC is not remarkable. Lactic acid is not remarkable. BNP is only 36. She will go to the ICU. Repeat ABG testing in a couple of hours. Intubate if needed. Hospitalist will see the patient in the ER. Lab Data 06/06/23 03:27 06/06/23 03:27 Labs/Radiology: Radiology Impressions Chest X-Ray 06/05/23 20:06 IMPRESSION: Biapical pleuroparenchymal fibrosis and bullous emphysematous changes, similar to prior exam. Laboratory Results WBC 9.13 10^3/uL (3.29-11.43) 06/05/23 20:47 RBC 3.98 10^6/uL (3.85-5.65) 06/05/23 20:47 Hgb 10.60 g/dL (11.27-16.99) L 06/05/23 20:47 Hct 38.3 % (36-47) 06/05/23 20:47 MCV 96.2 fl (85-98) 06/05/23 20:47 MCH 26.6 pg (27-33) L 06/05/23 20:47 MCHC 27.7 g/dL (30-55) L 06/05/23 20:47 RDW 14.0 % (12.1-15.1) 06/05/23 20:47 Plt Count 287 10^3/cmm (157-399) 06/05/23 20:47 MPV 9.5 fL (7.4-10.4) 06/05/23 20:47 Neut % (Auto) 78.0 % 06/05/23 20:47 Lymph % (Auto) 13.9 % 06/05/23 20:47 Edgar % (Auto) 6.8 % 06/05/23 20:47 Eos % (Auto) 0.7 % 06/05/23 20:47 Baso % (Auto) 0.4 % 06/05/23 20:47 Neut # (Auto) 7.12 10^3/uL (1.8-7.7) 06/05/23 20:47 Lymph # (Auto) 1.3 10^3/uL (0.8-4.8) 06/05/23 20:47 Edgar # (Auto) 0.6 10^3/uL (0.2-0.9) 06/05/23 20:47 Eos # (Auto) 0.1 10^3/uL (0.0-0.8) 06/05/23 20:47 Baso # (Auto) 0.0 10^3/uL (0.0-0.1) 06/05/23 20:47 Nucleated RBC % (auto) 0 % 06/05/23 20:47 Nucleated RBCs # 0.0 /100WBC 06/05/23 20:47 Specimen Type Arterial 06/05/23 21:21 Sample Site Brachial, left 06/05/23 21:21 ABG pH 7.31 (7.35-7.45) L 06/05/23 21: ABG pCO2 96.6 mmHg (35-45) H* 06/05/23 21: ABG pO2 54.5 mmHg (80.0-100.0) L 06/05/23 21: ABG HCO3 48.9 mmol/L (22-26) H 06/05/23 21: ABG Base Excess 18.9 mmol/L (-2.0-2.0) H 06/05/23 21:21 Nikolas Test N/a 06/05/23 21: Hematocrit 32.1 % (37-47) L 06/05/23 21:21 Hgb O2 Saturation 92.9 % (95-100) L 06/05/23 20:25 Carboxyhemoglobin 3.5 %THgb (0.4-20.1) 06/05/23 20:25 Methemoglobin 0.6 % (0.4-1.5) 06/05/23 20:25 Total Hemoglobin 10.5 g/dL (12-16) L 06/05/23 20:25 O2 Delivery Device Bipap 06/05/23: O2 Liters/Min 4.0 % 06/05/23 20:25 FiO2 40.0 % 06/05/23 21:21 PEEP 8.0 cmH20 06/05/23 21:21 Adult Services Librarian ID Ed 06/05/23 21:21 Sodium 144 mmol/L (136-145) 06/05/23 20:47 Potassium 5.5 mmol/L (3.5-5.1) H 06/05/23 20:47 Chloride 92 mmol/L (98-107) L 06/05/23 20:47 Carbon Dioxide 46 mmol/L (22-29) H* 06/05/23 20:47 Anion Gap 11.5 (5-19) 06/05/23 20:47 BUN 20 mg/dL (8-23) 06/05/23 20:47 Creatinine 0.4 mg/dL (0.5-0.9) L 06/05/23 20:47 GFR Calculation Not Reportable 06/05/23 20:47 Glucose 130 mg/dL (65-115) H 06/05/23 20:47 Calculated Osmolality 302 mOsm/kg (285-295) H 06/05/23 20:47 Lactic Acid 0.8 mmol/L (0.5-2.2) 06/05/23 20:47 Calcium 11.6 mg/dL (8.5-10.5) H 06/05/23 20:47 Magnesium 2.3 mg/dL (1.7-2.3) 06/05/23 20:47 Total Bilirubin 0.2 mg/dL (0.15-1.2) 06/05/23 20:47 AST 19 U/L (0-32) 06/05/23 20:47 ALT 15 U/L (0-33) 06/05/23 20:47 Alkaline Phosphatase 56 U/L (35-105) 06/05/23 20:47 Troponin T Baseline 34 ng/L (0-10) H 06/05/23 20:47 Troponin T 120 Minute 30.84 ng/L (0-10) H 06/05/23 22:20 Delta Troponin T -3.16 ABS# (0-10) L 06/05/23 22:20 NT-Pro-B Natriuret Pep 363 pg/mL (0-125) H 06/05/23 20:47 Total Protein 7.1 g/dL (6.6-8.7) 06/05/23 20:47 Albumin 4.3 g/dL (3.5-5.2) 06/05/23 20:47 Globulin 2.8 g/dL (1.3-4.6) 06/05/23 20:47 Urine Color Yellow (Yellow) 06/05/23 23:39 Urine Appearance Clear (CLEAR) 06/05/23 23:39 Urine pH 5 (5-7) 06/05/23 23:39 Ur Specific [place] 1.020 (1.005-1.030) 06/05/23 23:39 Urine Protein Trace (Negative) 06/05/23 23:39 Urine Glucose (UA) Norm (Normal) 06/05/23 23:39 Urine Ketones Negative (Negative) 06/05/23 23:39 Urine Blood Neg (Negative) 06/05/23 23:39 Urine Nitrate Negative (Negative) 06/05/23 23:39 Urine Bilirubin Neg (Negative) 06/05/23 23:39 Urine Urobilinogen Neg mg/dL (Negative) 06/05/23 23:39 Ur Leukocyte Esterase Negative (Negative) 06/05/23 23:39 Urine RBC None /hpf (0-2) 06/05/23 23:39 Urine WBC 0-4 /hpf (0-5) H 06/05/23 23:39 Ur Squamous Epith Cells 0-4 /hpf (0-5) H 06/05/23 23:39 Amorphous Sediment Not Reportable 06/05/23 23:39 Urine Bacteria None /hpf (NONE) 06/05/23 23:39 Hyaline Casts 5-10 /lpf H 06/05/23 23:39 Urine Mucus 2+ /hpf 06/05/23 23:39 Nasal Influ A H1 2008 PCR Not detected (NOT DETECT) 06/05/23 22:24 Adenovirus (PCR) Not detected (NOT DETECT) 06/05/23 22:24 C. pneumoniae DNA (PCR) Not detected (NOT DETECT) 06/05/23 22:24 Coronavirus 229E (PCR) Not detected (NOT DETECT) 06/05/23 22:24 Human Metapneumovir PCR Not detected (NOT DETECT) 06/05/23 22:24 Influenza A (H1) PCR Not detected (NOT DETECT) 06/05/23 22:24 Influenza A (H3) PCR Not detected (NOT DETECT) 06/05/23 22:24 Influenza Type A (PCR) Not detected (NOT DETECT) 06/05/23 22:24 Influenza Type B (PCR) Not detected (NOT DETECT) 06/05/23 22:24 M. pneumoniae (PCR) Not detected (NOT DETECT) 06/05/23 22:24 Parainfluenza 1 (PCR) Not detected (NOT DETECT) 06/05/23 22:24 Parainfluenza 2 (PCR) Not detected (NOT DETECT) 06/05/23 22:24 Parainfluenza 3 (PCR) Not detected (NOT DETECT) 06/05/23 22:24 Parainfluenza 4 (PCR) Not detected (NOT DETECT) 06/05/23 22:24 RSV Type A (PCR) Not detected (NOT DETECT) 06/05/23 22:24 RSV Type B (PCR) Not detected (NOT DETECT) 06/05/23 22:24 Entero/Rhino (PCR) Not detected (NOT DETECT) 06/05/23 22:24 SARS-CoV-2 (PCR) Not detected (NOT DETECT) 06/05/23 22:24 All radiology interpretation(s) finalized by discharge Critical Care Time Critical Care Time: Critical Care Time: Yes Total Critical Care Time: 35 Attestation: This case had a high probability of a clinically significant, sudden, or life threatening deterioration of this patient's condition which required my full and direct attention, intervention and personal management. Time is independent of any procedures performed. Discharge Plan Discharge Patient Disposition: Admitted As Inpatient Admit Provider: Dilma Bennett Clinical Impression: Acute exacerbation of chronic obstructive airways disease, Acute hypercapnic respiratory failure Condition: Stable Coding Level of Care Code ED Consultant for [facility] Yudy
[2023-06-05 22:04] LABS: Troponin(5th) Baseline 34 ng/L (0-10)
[2023-06-05] MEDS: methylPREDNISolone sod succ 125 MG in water for injection-sterile 2 ML 24 MG IVP (22:33)
[2023-06-05 22:48] LABS: Alanine Aminotransferase 15 U/L (0-33); Albumin Level 4.3 g/dL (3.5-5.2); Alkaline Phosphatase 56 U/L (35-105); Aspartate Amino Transferase 19 U/L (0-32); Blood Urea Nitrogen 20 mg/dL (8-23); Calcium 11.6 mg/dL (8.5-10.5); Chloride 92 mmol/L (98-107); Globulin 2.8 g/dL (1.3-4.6); Glucose 130 mg/dL (65-115); Osmolality Calculated 302 mOsm/kg (285-295); Sodium 144 mmol/L (136-145); Total Bilirubin 0.2 mg/dL (0.15-1.2); Total Protein 7.1 g/dL (6.6-8.7)
[2023-06-05 22:49] LABS: Creatinine Clr Calc Pharmacy 52.0124
[2023-06-05 22:50] LABS: Anion Gap 11.5 (5-19); Potassium 5.5 mmol/L (3.5-5.1)
[2023-06-05 22:51] LABS: Carbon Dioxide 46 mmol/L (22-29)
[2023-06-05 22:59] LABS: Troponin 5 2HR 30.84 ng/L (0-10)
[2023-06-05 23:01] LABS: Troponin 5 2HR Delta -3.16 ABS# (0-10)
[2023-06-05 23:23] VITALS: BP 94/52; PULSE 68; RESP 28; O2SAT 98
--- NOTE | 2023-06-05 23:24 | ECG_ITS ---
[facility] Test Date: 2023-06-05 Pat Name: Marie Hull Department: Room: ICU11 Gender: Female Rn Med Surg: : 1950 Requested By: Sharan Love Order Number: [id number] Bobby MD: Varsha Hensley M.D. Measurements Intervals [place] Rate: 67 P: 77 CA: 145 QRS: 81 QRSD: 89 T: 78 QT: 381 QTc: 404 Interpretive Statements SINUS RHYTHM EARLY REPOLARIZATION [ST ELEVATION WITH NORMALLY INFLECTED T-WAVE] MODERATE ST DEPRESSION [0.05+ mV ST DEPRESSION] Compared to ECG 06/05/2023 20:42:03 Sinus bradycardia no longer present ST (T wave) deviation still present Electronically Signed On 06-07-2023 10:50:44 CDT by Varsha Hensley M.D. [id number]
--- NOTE | 2023-06-05 23:47 | P.HP_ITS ---
Providers/Chief Complaint Admitting Physician: Dilma Bennett MD Primary Care Provider: Norman Lazo MD Chief Complaint: LETHARGIC History of Present Illness Marie Hull is a 73 year old female with history of COPD/emphysema, chronic hypoxic and hypercarbic respiratory failure, recurrent admissions for acute respiratory failure was brought in by EMS for lethargy. As per the daughter who is at the bedside she reported that Ms. Hull has been sleeping more than usual for the last 1 week but has been coherent and communicative. This morning she was found to be very lethargic unable to arouse and and nonresponsive. There is no history of fever cold cough chest pain shortness of breath nausea vomiting diarrhea or urinary complaints. As per the EMS her ABG had PCO2 of 120 with pH of 7.2 ,she was saturating 95% on 5 L nasal cannula She was placed on BiPAP. On arrival in ER ABG was repeated with pH of 7.3 and PCO2 97 Review of Systems Narrative: Unable to assess due to altered mental status Medications/Allergies Home Medications Medication Instructions Recorded Confirmed Last Taken Type oxygen #1 ea 03/24/22 03/18/23 07/24/22 Rx levocetirizine 5 mg tablet 5 mg PO DAILY #30 tabs 06/15/22 03/18/23 11/22/22 Rx albuterol sulfate 90 mcg/actuation 1 puff inhalation TID PRN 09/14/22 03/18/23 Unknown Rx aerosol inhaler (Ventolin HFA) Shortness Of Breath #18 grams bimatoprost 0.01 % eye drops 1 drp ophthalmic (eye) BEDTIME 10/20/22 03/18/23 11/21/22 History (Neisha) azithromycin 250 mg tablet 250 mg PO .3 times weekly COPD #36 01/28/23 03/18/23 Unknown Rx tabs cholecalciferol (vitamin D3) 25 1,000 unit PO DAILY 02/08/23 03/18/23 Unknown History mcg (1,000 unit) tablet (Vitamin D3) ipratropium 0.5 mg-albuterol 3 mg 3 ml inhalation TID 02/08/23 03/18/23 Unknown History (2.5 mg base)/3 mL nebulization soln furosemide 20 mg tablet (Lasix) 20 mg PO DAILY PRN edema #60 tabs 02/09/23 03/18/23 Unknown Rx potassium chloride 20 mEq 20 meq PO DAILY PRN Only with 02/09/23 03/18/23 Unknown Rx tablet,extended release Lasix #60 tabs roflumilast 500 mcg tablet 500 mcg PO DAILY #90 tabs 02/09/23 03/18/23 Unknown Rx budesonide 0.5 mg/2 mL suspension 0.5 mg (2 mL) inhalation BID COPD 02/25/23 03/18/23 Unknown Rx for nebulization J44.9 #60 mL formoterol fumarate 20 mcg/2 mL 2 ml inhalation BID COPD J44.9 02/25/23 03/18/23 Unknown Rx solution for nebulization #120 mL (Perforomist) calcium carbonate 600 mg calcium 600 mg PO DAILY 03/03/23 03/18/23 Unknown History (1,500 mg) tablet (Calcium) metoprolol tartrate 25 mg tablet 12.5 mg PO BID 30 days #30 tabs 03/11/23 03/18/23 Unknown Rx prednisone 10 mg tablet See Rx Instructions .Route 03/11/23 03/18/23 Unknown Rx .COMPLEX #53 tabs pantoprazole 40 mg tablet,delayed 40 mg PO BIDWM 30 days #60 tabs 03/12/23 03/18/23 Unknown Rx release alprazolam 0.25 mg tablet 0.25 mg PO TID PRN anxiety #60 tabs 03/18/23 03/18/23 Unknown Rx lidocaine 1.8 % topical patch 1 patch topical DAILY #30 ea 03/18/23 03/18/23 Unknown Rx revefenacin 175 mcg/3 mL solution 175 mcg (3 mL) inhalation DAILY 04/02/23 Unknown Rx for nebulization (Imani) COPD J44.9 #90 mL Allergies Allergy/AdvReac Type Severity Reaction Status Date / Time No Known Allergies Allergy Verified 05/12/23 08:09 PFSH Acute PFSH: Medical History Acute exacerbation of chronic obstructive airways disease Acute exacerbation of chronic obstructive airways disease Acute hypercapnic respiratory failure Acute on chronic respiratory failure with hypoxia and hypercapnia Acute on chronic respiratory failure with hypoxia and hypercapnia Atrial fibrillation transient, during acute COPD exacerbation in 2019 Back pain Chest pain Chronic obstructive pulmonary emphysema Chronic respiratory failure with hypoxia and hypercapnia COPD (chronic obstructive pulmonary disease) Diastolic CHF History of echocardiogram 08/2019 EF 65%, grade I/IV diastolic dysfunction, PAP within normal limits History of PFTs 10/2019 severe airflow obstruction, FEV1/FVC of 33%, FEV1 0.57 L 29% predicted, FVC 1.76 L 71% predicted, TLC 107%, RV 163%, reduced DLCO at 25% Hyperkalemia Mass of upper lobe of left lung cavitary appearance, never biopsied due to risk of complication and non-surgi joyce candidate, has been stable on imaging On home oxygen therapy 2-3 L BNC at baseline Osteoarthritis Osteoporosis Paroxysmal A-fib Personal history of nicotine dependence quit in 2019, but still with 2nd hand exposure Pseudomonas aeruginosa colonization Pulmonary fibrosis Pulmonary nodule left lower lobe Seasonal allergies Uses bilevel positive airway pressure (BPAP) [facility] Surgical History History of kyphoplasty (2014) L1, L2, L3, L5 performed [address] Dr. Roman Marquez Family History Mother CAD (coronary artery disease) Social History Smoking and tobacco/nicotine status: former use of tobacco/nicotine Quit status (tobacco/nicotine): has quit using Year quit tobacco: 2019 - 1PPD x 50 Years Second hand smoke exposure: Yes Alcohol intake: never Substance/Drug Use: never Lives independently: Yes Household members: none Marital status: Current occupational status: retired Do you think of yourself as: Straight/Heterosexual Current gender identity: Female Vitals/I&O/Wt Last Vital Signs Pulse 68 06/05/23 23:23 Resp 28 H 06/05/23 23:23 BP 94/52 06/05/23 23:23 Pulse Ox 98 06/05/23 23:23 O2 Del Method BiPAP 06/05/23 23:23 O2 Flow Rate 6 06/05/23 20:02 FiO2 50 06/05/23 23:23 06/05/23 06/05/23 06/06/23 14:59 22:59 06:59 Intake Total 1000 / 1000 Balance 1000 / 1000 Weight last 48 hrs Weight 54.431 kg Physical Exam Narrative: She is drowsy lethargic but arousable in moderate respiratory distress. Chest air entry equal on both sides, bilateral fine crackles heard Cardiovascular normal heart sounds no murmurs Abdomen soft nondistended nontender normal bowel sounds Extremities trace bilateral lower extremity pitting edema present Data 06/05/23 20:47 06/05/23 20:47 Micro: Microbiology 06/05/23 20:47 Blood Culture - Preliminary Blood SPECIMEN COLLECTED 06/05/23 20:40 Blood Culture - Preliminary Blood SPECIMEN COLLECTED Echo: Radiologist's impression: 03/07 LV systolic function is normal with EF 55 to 60%. ?Valvular structures are not well-visualized. ?Trace tricuspid regurgitation ?Compared to prior echocardiogram from 10/20/2022, no significant ?changes in the LV function noted. CXR: Radiologist's impression: IMPRESSION: Biapical pleuroparenchymal fibrosis and bullous emphysematous changes, similar to prior exam. ? EKG 1: My Interpretation: Normal sinus rhythm J-point elevation No acute ST-T changes A&P Assessment and plan (1) Acute and chronic respiratory failure ([id number]): (2) Acute exacerbation of chronic obstructive airways disease: (3) Lethargic: Plan 73 year old female with history of COPD/emphysema, chronic hypoxic and hypercarbic respiratory failure, recurrent admissions for acute respiratory failure was brought in by EMS for lethargy and found to have abnormal ABG with PCO2 of 120 likely secondary to acute on chronic hypoxic and hypercarbic respiratory failure. Acute respiratory failure likely secondary to COPD exacerbation secondary to flulike syndrome Respiratory panel pending Continue BiPAP, recheck ABG at 5 AM and adjust accordingly Will start IV ceftriaxone 1 g daily IV be azithromycin 500 mg daily IV methylprednisolone 40 mg every 12 hours Resume nebulizers as per home schedule Carb consistent diet Reconcile and resume home medications IV pantoprazole 40 mg every 12 hours for stress ulcer prophylaxis Subcutaneous Lovenox 30 mg daily for DVT prophylaxis She is full code for now as per the discussion with the daughter Gissell Shea Attestations Medical Necessity Statement*: She needs less than 2 days of hospitalization. She is here for acute hypoxic and hypercarbic respiratory failure to be managed with IV antibiotics steroids and nebulizer treatment along with BiPAP Time Spent in Patient Care: 30 minutes Coding Level of Care Code Acute Code for Chg Fwd Diagnoses Acute and chronic respiratory failure ([id number]) J96.20 Acute exacerbation of chronic obstructive airways disease J44.1 Lethargic R53.83 Time Spent (min) 30
[2023-06-06] VITALS (57 sets, daily range): BP systolic 90–137; BP diastolic 53–77; PULSE 62–117; RESP 0–29; TEMP 36.1–36.3; O2SAT 70–100
[2023-06-06 00:26] LABS: Adenovirus Not Detected (NOT DETECT); Chlamydia Pneumoniae Not Detected (NOT DETECT); Coronavirus 229E,HKU1,NL63,OC4 Not Detected (NOT DETECT); Human Metapneumovirus Not Detected (NOT DETECT); Human Rhinovirus/Enterovirus Not Detected (NOT DETECT); Influenza A Not Detected (NOT DETECT); Influenza A H1 Not Detected (NOT DETECT); Influenza A H1-2009 Not Detected (NOT DETECT); Influenza A H3 Not Detected (NOT DETECT); Influenza B Not Detected (NOT DETECT); Mycoplasma Pneumoniae Not Detected (NOT DETECT); Parainfluenza Virus Type 1 Not Detected (NOT DETECT); Parainfluenza Virus Type 2 Not Detected (NOT DETECT); Parainfluenza Virus Type 3 Not Detected (NOT DETECT); Parainfluenza Virus Type 4 Not Detected (NOT DETECT); Respiratory Syncytial Virus A Not Detected (NOT DETECT); Respiratory Syncytial Virus B Not Detected (NOT DETECT); SARS-COV-2 Not Detected (NOT DETECT)
--- NOTE | 2023-06-06 00:48 | PC.NURSE ---
Some of Pt's medications pulled upon going to administer them RT showed up for transport to the floor. Said medications take with pt to the ICU. Pt's accepting nurse informed of the situation and given the medications.
[2023-06-06] MEDS: sodium chloride 0.9% 1,000 ML 75 ML IV (01:07)
[2023-06-06] MEDS: azithromycin 500 MG in sodium chloride 0.9% 250 ML 250 MG IV (01:08)
[2023-06-06] MEDS: pantoprazole 40 mg SDV IVP ×2 (01:11→11:29)
[2023-06-06] MEDS: enoxaparin 30 mg/0.3 mL Syringe SUBCUT (01:12)
[2023-06-06] MEDS: cefTRIAXone 1,000 MG in sodium chloride 0.9% (plus) 50 ML 100 MG IV (02:06)
[2023-06-06 03:40] LABS: Add Urine Culture? No; Add Urine Microscopic? YES; Bilirubin Urine Neg (Negative); Blood Urine Neg (Negative); Glucose Urine UA Norm (Normal); Ketones Urine Negative (Negative); Leukocyte Esterase Urine Negative (Negative); Mucus Urine 2+ /hpf; Nitrate Urine Negative (Negative); Protein Urine Trace (Negative); Squamous Epithelial Cell Urine 0-4 /hpf (0-5); Urine Appearance Clear (CLEAR); Urine Color Yellow (Yellow); Urobilinogen Urine Neg (Negative); WBC Urine 0-4 /hpf (0-5); pH Urine 5 (5-7)
--- NOTE | 2023-06-06 03:48 | ECG_ITS ---
[facility] Test Date: 2023-06-06 Pat Name: Marie Hull Department: Room: ICU11 Gender: Female Hall Porter: : 1950 Requested By: Sharan Love Order Number: [id number] Bobby MD: Varsha Hensley M.D. Measurements Intervals [place] Rate: 73 P: 82 NM: 145 QRS: 88 QRSD: 94 T: 78 QT: 375 QTc: 414 Interpretive Statements SINUS RHYTHM ST DEVIATION AND MODERATE T-WAVE ABNORMALITY, CONSIDER ANTERIOR ISCHEMIA [-0.1+ mV T-WAVE IN V3/V4] Compared to ECG 06/05/2023 23:28:52 T-wave abnormality now present Possible ischemia now present Early repolarization no longer present ST (T wave) deviation no longer present Electronically Signed On 06-07-2023 10:50:13 CDT by Varsha Hensley M.D. [id number]
[2023-06-06 04:23] LABS: Basophils % 0.2 %; Hematocrit 39.4 % (36-47); Lymphocytes # 0.5 10^3/uL (0.8-4.8); Lymphocytes % 10.5 %; Mean Corpuscular HGB Conc 27.4 g/dL (30-55); Mean Corpuscular Hemoglobin 26.9 pg (27-33); Mean Corpuscular Volume 98.3 fl (85-98); Mean Platelet Volume 9.5 fL (7.4-10.4); Monocytes # 0.1 10^3/uL (0.2-0.9); Monocytes % 1.2 %; Neutrophils # 4.44 10^3/uL (1.8-7.7); Neutrophils % 87.9 %; Nucleated Red Blood Cells % 0 %; Platelet Count 245 10^3/cmm (157-399); Red Blood Count 4.01 10^6/uL (3.85-5.65); White Blood Count 5.05 10^3/uL (3.29-11.43)
[2023-06-06 04:41] LABS: ABG PH Result 7.26 (7.35-7.45); Arterial Blood Gas Hematocrit 30.1 % (37-47); Base Excess ABG 14.5 mmol/L (-2.0-2.0); Blood Gas Sample Site Brachial, left; Blood Gas Sample Type Arterial; HCO3 ABG 44.6 mmol/L (22-26); PO2 ABG 91.5 mmHg (80.0-100.0)
[2023-06-06 04:42] LABS: ABG PCO2 98.6 mmHg (35-45); Oxygen Device BIPAP
[2023-06-06 04:43] LABS: Troponin 5 6HR 27.65 ng/L (0-10); Troponin 5 6HR Delta -6.35 ng/L (0-12)
[2023-06-06 04:50] LABS: Alanine Aminotransferase 13 U/L (0-33); Albumin Level 3.7 g/dL (3.5-5.2); Alkaline Phosphatase 53 U/L (35-105); Anion Gap 10.4 (5-19); Aspartate Amino Transferase 15 U/L (0-32); Blood Urea Nitrogen 22 mg/dL (8-23); Calcium 10.5 mg/dL (8.5-10.5); Chloride 98 mmol/L (98-107); Globulin 2.3 g/dL (1.3-4.6); Glucose 133 mg/dL (65-115); Magnesium 2.1 mg/dL (1.7-2.3); NT Pro B Type Natriuretic Pept 256 pg/mL (0-125); Osmolality Calculated 305 mOsm/kg (285-295); Potassium 5.4 mmol/L (3.5-5.1); Sodium 145 mmol/L (136-145); Total Bilirubin 0.2 mg/dL (0.15-1.2)
[2023-06-06 04:51] LABS: Carbon Dioxide 42 mmol/L (22-29)
--- NOTE | 2023-06-06 05:10 | PC.NURSE ---
made aware of most recent ABG results. RT to make adjustments to BIPAP settings. No new orders.
[2023-06-06] MEDS: flu vacc pf 2023-24 (6 mos+) 60 MCG IM (05:11)
--- NOTE | 2023-06-06 05:51 | PC.NURSE ---
PAtient with no urine output since ER. Bladder scan revealed 266ml in bladder, patient attempted but unable to urinate at this time. Patient does not appear to have any bladder distention and denies discomfort. Encouraged patient to let nurse know when she needs to urinate.
[2023-06-06] MEDS: ipratropium-albuterol 3 mL Neb INHALATION ×3 (08:19→20:54)
[2023-06-06] MEDS: budesonide 0.5 mg/2 mL Neb INHALATION ×2 (08:34→20:54)
[2023-06-06] MEDS: methylPREDNISolone sod succ 40 MG in water for injection-sterile 1 ML 12 MG IVP ×2 (09:41→17:58)
[2023-06-06] MEDS: metoprolol tartrate 25 mg Tablet 12.5 MG PO ×2 (11:29→17:57)
[2023-06-06 11:33] LABS: Alveolar-Arterial Oxygen Gradi 7.4 mmHg (5-10); Blood Gas Allen Test Pos; Blood Gas Operator Identificat CAK; Blood Gas Sample Site Radial, left; Blood Gas Sample Type Arterial; Carboxyhemoglobin 2.2 %THgb (0.4-20.1); HGB O2 Sat 94.8 % (95-100); Ionized Calcium Level - ABG 1.4 mmol/L (1.1-1.4); Methemoglobin 0.4 % (0.4-1.5); Oxygen Device BIPAP; Oxygen Saturation ABG 97.3; PO2 ABG 78.7 mmHg (80.0-100.0); Potassium Level - ABG 4.1 mmol/L (3.5-5.0); Total Hemoglobin 9.8 g/dL (12-16)
[2023-06-06] MEDS: albuterol 2.5 mg/3 mL Neb INHALATION (11:36)
[2023-06-06] MEDS: roflumilast 500 mcg Tablet PO (12:08)
--- NOTE | 2023-06-06 15:17 | P.PN_ITS ---
Subjective Subjective: Doing better today. Patient is being on BiPAP through the night and much of this morning. She is alert awake oriented, able to have a conversation. Able to be weaned off of BiPAP and onto nasal cannula today. pH improving with pH now at 7.46, CO2 down to 60s. Medications: Reviewed: Yes Vitals/I&O/Wt Last Vital Signs Temp 97.4 F L 06/06/23 04:00 Pulse 107 H 06/06/23 12:00 Resp 25 H 06/06/23 12:00 BP 108/59 06/06/23 12:00 Pulse Ox 88 L 06/06/23 12:00 O2 Del Method BiPAP 06/06/23 11:39 O2 Flow Rate 6 06/05/23 20:02 FiO2 30 06/06/23 11:39 06/06/23 06/06/23 06/06/23 06:59 14:59 22:59 Intake Total 1332 / 1332 120 / 120 Output Total 400 / 400 Balance 1332 / 1332 -280 / -280 Weight last 48 hrs Weight 41.458 kg Weight 54.431 kg Physical Exam Narrative: General: No acute distress, AO x3 HEENT: PERRLA, pupils bilaterally equal and reactive, pallors not present Chest: Conducted breath sounds bilaterally CVS: S1-S2 regular, no murmurs, no tachycardia, no gallops, no rubs Abdomen: Soft, nontender, no organomegaly, bowel sounds present Neuro: No focal deficits, no facial deformity, AO x3, power 5/5 in all limbs Extremities: No edema clubbing or cyanosis Data 06/06/23 03:27 06/06/23 03:27 Micro: Microbiology 06/05/23 20:47 Blood Culture - Preliminary Blood SPECIMEN COLLECTED 06/05/23 20:40 Blood Culture - Preliminary Blood SPECIMEN COLLECTED ABG Interpretation 1: 06/05/23 06/05/23 06/06/23 20:25 21:21 04:30 ABG pH 7.22 L 7.31 L 7.26 L ABG pCO2 121.0 H* 96.6 H* 98.6 H* ABG pO2 91.5 54.5 L 91.5 ABG HCO3 49.8 H 48.9 H 44.6 H ABG O2 Saturation ABG Base Excess 17.9 H 18.9 H 14.5 H 06/06/23 11:22 ABG pH 7.40 ABG pCO2 66.0 H* ABG pO2 78.7 L ABG HCO3 41.0 H ABG O2 Saturation 97.3 ABG Base Excess 14.0 H A&P Assessment and plan (1) Acute and chronic respiratory failure ([id number]): 73 year old female with history of COPD/emphysema, chronic hypoxic and hypercarbic respiratory failure, recurrent admissions for acute respiratory failure was brought in by EMS for lethargy and found to have abnormal ABG with PCO2 of 120 likely secondary to acute on chronic hypoxic and hypercarbic res piratory failure. Overall clinical impression is that of acute on chronic COPD exacerbation. Respiratory viral panel negative. Continue scheduled nebulization with DuoNeb and budesonide. Continue methylprednisolone 40 mg IV twice daily Continue Daliresp 500 mcg daily. Continue BiPAP at nighttime and as needed during the day No noted consolidation on chest x-ray. (2) Acute exacerbation of chronic obstructive airways disease: (3) Lethargic: Plan She is full code for now as per the discussion with the daughter Gissell Shea Attestations Medical Necessity Statement*: Continued monitoring of respiratory status, high risk of clinical deterioration Coding Level of Care Code Acute Code for [facility] Diagnoses Acute and chronic respiratory failure ([id number]) J96.20 Acute exacerbation of chronic obstructive airways disease J44.1 Lethargic R53.83
[2023-06-06] MEDS: dilTIAZem 60 mg Tablet PO (17:57)
[2023-06-06] MEDS: apixaban 5 mg Tablet 2.5 MG PO (17:57)
[2023-06-07] VITALS (34 sets, daily range): BP systolic 104–131; BP diastolic 56–84; PULSE 80–110; RESP 12–27; TEMP 36.8–36.9; O2SAT 90–99
[2023-06-07] MEDS: cefTRIAXone 1,000 MG in sodium chloride 0.9% (plus) 50 ML 100 MG IV (01:11)
[2023-06-07 05:19] LABS: Basophils % 0.1 %; Hematocrit 34.1 % (36-47); Lymphocytes # 0.7 10^3/uL (0.8-4.8); Mean Corpuscular Hemoglobin 27.2 pg (27-33); Mean Corpuscular Volume 93.7 fl (85-98); Mean Platelet Volume 9.6 fL (7.4-10.4); Monocytes # 0.8 10^3/uL (0.2-0.9); Monocytes % 8.1 %; Neutrophils # 7.77 10^3/uL (1.8-7.7); Neutrophils % 84.2 %; Nucleated Red Blood Cells % 0 %; Platelet Count 261 10^3/cmm (157-399); Red Blood Count 3.64 10^6/uL (3.85-5.65); Red Cell Distribution Width 14.3 % (12.1-15.1); White Blood Count 9.24 10^3/uL (3.29-11.43)
[2023-06-07 05:45] LABS: Anion Gap 9.4 (5-19); Blood Urea Nitrogen 25 mg/dL (8-23); Calcium 10.5 mg/dL (8.5-10.5); Chloride 100 mmol/L (98-107); Glucose 125 mg/dL (65-115); Osmolality Calculated 310 mOsm/kg (285-295); Potassium 4.4 mmol/L (3.5-5.1); Sodium 147 mmol/L (136-145)
[2023-06-07 05:52] LABS: Carbon Dioxide 42 mmol/L (22-29)
[2023-06-07] MEDS: acetaminophen 325 mg Tablet PO (05:59)
[2023-06-07] MEDS: ipratropium-albuterol 3 mL Neb INHALATION ×4 (07:32→19:18)
[2023-06-07] MEDS: budesonide 0.5 mg/2 mL Neb INHALATION ×2 (07:32→19:17)
[2023-06-07] MEDS: azithromycin 250 mg Tablet 500 MG PO (09:16)
[2023-06-07] MEDS: apixaban 5 mg Tablet 2.5 MG PO ×2 (09:16→17:32)
[2023-06-07] MEDS: dilTIAZem 60 mg Tablet PO ×2 (09:16→17:32)
[2023-06-07] MEDS: pantoprazole DR 40 mg Tablet PO (09:17)
[2023-06-07] MEDS: methylPREDNISolone sod succ 40 MG in water for injection-sterile 1 ML 12 MG IVP ×2 (09:17→17:32)
[2023-06-07] MEDS: metoprolol tartrate 25 mg Tablet 12.5 MG PO ×2 (09:17→17:32)
[2023-06-07] MEDS: roflumilast 500 mcg Tablet PO (09:17)
[2023-06-07] MEDS: ALPRAZolam 0.5 mg Tablet PO ×2 (16:53→20:12)
--- NOTE | 2023-06-07 19:04 | P.PN_ITS ---
Subjective Subjective: Patient was seen this morning, she does report anxiety, she tells me that the alprazolam 0.25 mg 3 times daily does not help with anxiety, denies chest pain, denies palpitations does report shortness of breath with exertion, generalized weakness, patient was seen again in the evening time, with daughter present, she tells me that she uses alprazolam scheduled, she worked with observational ther mirian had generalized weakness, she is considering home physical therapy, due to her generalized weakness, Vitals/I&O/Wt Last Vital Signs Temp 98.3 F 06/07/23 09:00 Pulse 107 H 06/07/23 18:00 Resp 22 H 06/07/23 18:00 BP 125/76 06/07/23 18:00 Pulse Ox 91 06/07/23 18:00 O2 Del Method Nasal Cannula 06/07/23 15:15 O2 Flow Rate 3 06/07/23 15:15 FiO2 30 06/07/23 03:15 06/07/23 06/07/23 06/07/23 06:59 14:59 22:59 Intake Total 50 / 872 481 / 481 241 / 722 Output Total 500 / 900 Balance -450 / -28 481 / 481 241 / 722 Weight last 48 hrs Weight 41.458 kg Weight 54.431 kg Physical Exam Const: COMMON NORMALS: no acute distress and patient oriented x3 Resp: COMMON NORMALS: normal respiratory effort, No retractions and No use of accessory muscles AUSCULTATION: wheezes Cardio: COMMON NORMALS: regular rate, regular rhythm, S1 normal heart sound present and S2 normal heart sound present RATE: regular rate RHYTHM: regular rhythm HEART SOUNDS: S1 normal heart sound present and S2 normal heart sound present GI: COMMON NORMALS: Normal to inspection, nondistended, normoactive bowel sounds present and non-tender Extremity: COMMON NORMALS: no pedal edema Neuro: COMMON NORMALS: patient oriented x3 Psych: COMMON NORMALS: mental status grossly normal Data 06/07/23 04:58 06/07/23 04:58 Micro: Microbiology 06/05/23 20:47 Blood Culture - Preliminary Blood NEGATIVE TO DATE 06/05/23 20:40 Blood Culture - Preliminary Blood NEGATIVE TO DATE A&P Assessment and plan (1) Acute and chronic respiratory failure ([id number]): 73 year old female with history of COPD/emphysema, chronic hypoxic and hypercarbic respiratory failure, recurrent admissions for acute respiratory f ailure was brought in by EMS for lethargy and found to have abnormal ABG with PCO2 of 120 likely secondary to acute on chronic hypoxic and hypercarbic respiratory failure. acute on chronic COPD exacerbation. Respiratory viral panel negative. Continue Rocephin and azithromycin Continue scheduled nebulization with DuoNeb and budesonide. Continue methylprednisolone 40 mg IV twice daily Continue Daliresp 500 mcg daily. Continue BiPAP at nighttime and as needed during the day PT OT, alprazolam 0.5 mg 3 times daily scheduled No noted consolidation on chest x-ray. (2) Acute exacerbation of chronic obstructive airways disease: (3) Lethargic: Plan She is full code for now as per the discussion with the daughter Gissell Shea Spoke to patient, spoke to nursing staff patient daughter at bedside Attestations Medical Necessity Statement*: Patient requires hospitalization for acute COPD exacerbation Diagnoses Acute and chronic respiratory failure ([id number]) J96.20 Acute exacerbation of chronic obstructive airways disease J44.1 Lethargic R53.83
[2023-06-08] VITALS (32 sets, daily range): BP systolic 92–140; BP diastolic 49–77; PULSE 68–120; RESP 16–28; TEMP 36.3–36.8; O2SAT 85–98
[2023-06-08] MEDS: cefTRIAXone 1,000 MG in sodium chloride 0.9% (plus) 50 ML 100 MG IV (01:51)
[2023-06-08 04:53] LABS: Basophils % 0.1 %; Hematocrit 33.8 % (36-47); Lymphocytes # 0.5 10^3/uL (0.8-4.8); Lymphocytes % 4.9 %; Mean Corpuscular HGB Conc 28.7 g/dL (30-55); Mean Corpuscular Hemoglobin 26.9 pg (27-33); Mean Corpuscular Volume 93.6 fl (85-98); Mean Platelet Volume 9.7 fL (7.4-10.4); Monocytes # 0.5 10^3/uL (0.2-0.9); Monocytes % 5.3 %; Neutrophils # 8.33 10^3/uL (1.8-7.7); Neutrophils % 89.3 %; Nucleated Red Blood Cells % 0 %; Platelet Count 242 10^3/cmm (157-399); Red Blood Count 3.61 10^6/uL (3.85-5.65); Red Cell Distribution Width 14.6 % (12.1-15.1); White Blood Count 9.33 10^3/uL (3.29-11.43)
[2023-06-08 05:18] LABS: Alanine Aminotransferase 13 U/L (0-33); Albumin Level 3.6 g/dL (3.5-5.2); Alkaline Phosphatase 43 U/L (35-105); Anion Gap 9.6 (5-19); Aspartate Amino Transferase 18 U/L (0-32); Blood Urea Nitrogen 21 mg/dL (8-23); Calcium 10.1 mg/dL (8.5-10.5); Chloride 99 mmol/L (98-107); Globulin 2.2 g/dL (1.3-4.6); Glucose 149 mg/dL (65-115); Magnesium 2.3 mg/dL (1.7-2.3); Osmolality Calculated 306 mOsm/kg (285-295); Phosphorus 2.5 mg/dL (2.5-4.5); Potassium 4.6 mmol/L (3.5-5.1); Sodium 145 mmol/L (136-145); Total Bilirubin 0.2 mg/dL (0.15-1.2); Total Protein 5.8 g/dL (6.6-8.7)
[2023-06-08 05:30] LABS: Carbon Dioxide 41 mmol/L (22-29)
[2023-06-08] MEDS: azithromycin 250 mg Tablet 500 MG PO (08:16)
[2023-06-08] MEDS: apixaban 5 mg Tablet 2.5 MG PO ×2 (08:16→17:32)
[2023-06-08] MEDS: dilTIAZem 60 mg Tablet PO ×2 (08:17→17:32)
[2023-06-08] MEDS: pantoprazole DR 40 mg Tablet PO (08:17)
[2023-06-08] MEDS: metoprolol tartrate 25 mg Tablet 12.5 MG PO ×2 (08:17→17:32)
[2023-06-08] MEDS: ALPRAZolam 0.5 mg Tablet PO ×3 (08:17→20:38)
[2023-06-08] MEDS: methylPREDNISolone sod succ 40 MG in water for injection-sterile 1 ML 12 MG IVP (08:18)
[2023-06-08] MEDS: roflumilast 500 mcg Tablet PO (08:24)
[2023-06-08] MEDS: lidocaine 5% Patch 1 PATCH TOPICAL (08:28)
[2023-06-08] MEDS: budesonide 0.5 mg/2 mL Neb INHALATION ×2 (09:14→20:06)
[2023-06-08] MEDS: ipratropium-albuterol 3 mL Neb INHALATION ×4 (09:14→20:06)
[2023-06-08] MEDS: TRAMadol 50 mg Tablet 25 MG PO (10:49)
--- NOTE | 2023-06-08 18:46 | PM.PN ---
Subjective Subjective: Patient was seen this morning, denies any fevers, no chills, complains of shortness of breath, does report generalized weakness, does complain of lower back pain, Vitals/I&O/Wt Last Vital Signs Temp 97.4 F L 06/08/23 08:00 Pulse 103 H 06/08/23 18:00 Resp 25 H 06/08/23 18:00 BP 113/58 06/08/23 18:00 Pulse Ox 91 06/08/23 18:00 O2 Del Method Nasal Cannula 06/08/23 15:12 O2 Flow Rate 3 06/08/23 15:12 FiO2 30 06/08/23 04:00 06/08/23 06/08/23 06/08/23 06:59 14:59 22:59 Intake Total 50 / 772 241 / 241 240 / 481 Output Total 600 / 600 Balance -550 / 172 241 / 241 240 / 481 Physical Exam Const: COMMON NORMALS: no acute distress and patient oriented x3 Resp: COMMON NORMALS: normal respiratory effort, No retractions and No use of accessory muscles AUSCULTATION: crackles Cardio: COMMON NORMALS: regular rate, regular rhythm, S1 normal heart sound present and S2 normal heart sound present RATE: regular rate RHYTHM: regular rhythm HEART SOUNDS: S1 normal heart sound present and S2 normal heart sound present GI: COMMON NORMALS: Normal to inspection, nondistended, normoactive bowel sounds present and non-tender Extremity: COMMON NORMALS: no pedal edema Neuro: COMMON NORMALS: patient oriented x3 Psych: COMMON NORMALS: mental status grossly normal Data 06/08/23 04:35 06/08/23 04:35 A&P Assessment and plan (1) Acute and chronic respiratory failure ([id number]): 73 year old female with history of COPD/emphysema, chronic hypoxic and hypercarbic respiratory failure, recurrent admissions for acute respiratory failure was brought in by EMS for lethargy and found to have abnormal ABG with PCO2 of 120 likely secondary to acute on chronic hypoxic and hypercarbic respiratory failure. acute on chronic COPD exacerbation. Respiratory viral panel negative. Continue Rocephin and azithromycin Continue scheduled nebulization with DuoNeb and budesonide. Continue methylprednisolone 40 mg IV twice daily Continue Daliresp 500 mcg daily. Continue BiPAP at nighttime and as needed during the day PT OT, alprazolam 0.5 mg 3 times daily scheduled No noted consolidation on chest x-ray. (2) Acute exacerbation of chronic obstructive airways disease: (3) Lethargic: Plan She is full code for now as per the discussion with the daughter Gissell Shea Spoke to patient, spoke to nursing staff patient daughter at bedside Plan for today, up out of bed, lidocaine patch for lower back pain, tramadol for lower back pain, will plan moving to general medical floors, continue antibiotics continue steroids, transition to prednisone tomorrow Attestations Medical Necessity Statement*: Patient requires hospitalization for COPD exacerbation Diagnoses Acute and chronic respiratory failure ([id number]) J96.20 Acute exacerbation of chronic obstructive airways disease J44.1 Lethargic R53.83
[2023-06-09] VITALS (29 sets, daily range): BP systolic 99–128; BP diastolic 56–75; PULSE 61–108; RESP 6–29; TEMP 36.5; O2SAT 90–100
[2023-06-09] MEDS: cefTRIAXone 1,000 MG in sodium chloride 0.9% (plus) 50 ML 100 MG IV (00:24)
[2023-06-09 04:06] LABS: Hematocrit 33.2 % (36-47); Lymphocytes # 0.9 10^3/uL (0.8-4.8); Lymphocytes % 8.9 %; Mean Corpuscular HGB Conc 28.3 g/dL (30-55); Mean Corpuscular Hemoglobin 26.7 pg (27-33); Mean Corpuscular Volume 94.3 fl (85-98); Mean Platelet Volume 9.9 fL (7.4-10.4); Monocytes # 1.3 10^3/uL (0.2-0.9); Monocytes % 13.1 %; Neutrophils # 7.51 10^3/uL (1.8-7.7); Neutrophils % 77.7 %; Nucleated Red Blood Cells % 0 %; Platelet Count 239 10^3/cmm (157-399); Red Blood Count 3.52 10^6/uL (3.85-5.65); Red Cell Distribution Width 14.7 % (12.1-15.1); White Blood Count 9.67 10^3/uL (3.29-11.43)
[2023-06-09 04:27] LABS: Alanine Aminotransferase 19 U/L (0-33); Albumin Level 3.6 g/dL (3.5-5.2); Alkaline Phosphatase 43 U/L (35-105); Aspartate Amino Transferase 16 U/L (0-32); Blood Urea Nitrogen 26 mg/dL (8-23); Calcium 10.1 mg/dL (8.5-10.5); Chloride 100 mmol/L (98-107); Globulin 1.7 g/dL (1.3-4.6); Glucose 123 mg/dL (65-115); Magnesium 2.3 mg/dL (1.7-2.3); Osmolality Calculated 304 mOsm/kg (285-295); Phosphorus 2.7 mg/dL (2.5-4.5); Sodium 144 mmol/L (136-145); Total Bilirubin 0.2 mg/dL (0.15-1.2); Total Protein 5.3 g/dL (6.6-8.7)
[2023-06-09 04:31] LABS: Carbon Dioxide 42 mmol/L (22-29)
[2023-06-09] MEDS: ipratropium-albuterol 3 mL Neb INHALATION ×4 (07:32→21:02)
[2023-06-09] MEDS: budesonide 0.5 mg/2 mL Neb INHALATION ×2 (07:32→21:02)
[2023-06-09] MEDS: lidocaine 5% Patch 1 PATCH TOPICAL (08:26)
[2023-06-09] MEDS: roflumilast 500 mcg Tablet PO (08:26)
[2023-06-09] MEDS: metoprolol tartrate 25 mg Tablet 12.5 MG PO ×2 (08:27→16:43)
[2023-06-09] MEDS: ALPRAZolam 0.5 mg Tablet PO ×2 (08:27→20:12)
[2023-06-09] MEDS: azithromycin 250 mg Tablet 500 MG PO (08:27)
[2023-06-09] MEDS: dilTIAZem 60 mg Tablet PO ×2 (08:27→16:44)
[2023-06-09] MEDS: predniSONE 20 mg Tablet 40 MG PO (08:28)
[2023-06-09] MEDS: apixaban 5 mg Tablet 2.5 MG PO ×2 (08:28→16:43)
[2023-06-09] MEDS: pantoprazole DR 40 mg Tablet PO (08:28)
[2023-06-09] MEDS: TRAMadol 50 mg Tablet 25 MG PO ×2 (08:30→16:44)
--- NOTE | 2023-06-09 12:38 | PC.SOCIAL ---
Pg 2 IMM Explained to pt Pg 2 IMM. No questions voiced. Provided pt a copy. Initialed, dated, & timed a copy & placed in chart.
--- NOTE | 2023-06-09 14:29 | PM.PN ---
Subjective Subjective: Patient was seen this morning, she does report generalized weakness, no fevers Vitals/I&O/Wt Last Vital Signs Temp 97.7 F 06/09/23 00:00 Pulse 75 06/09/23 13:00 Resp 18 06/09/23 13:00 BP 99/56 06/09/23 11:00 Pulse Ox 100 06/09/23 13:00 O2 Del Method Nasal Cannula 06/09/23 11:32 O2 Flow Rate 3 06/09/23 11:32 FiO2 30 06/09/23 05:00 06/08/23 06/09/23 06/09/23 22:59 06:59 14:59 Intake Total 240 / 481 50 / 531 Output Total 1000 / 1000 Balance 240 / 481 -950 / -469 Physical Exam Const: COMMON NORMALS: no acute distress and patient oriented x3 Resp: COMMON NORMALS: normal respiratory effort, No retractions and No use of accessory muscles AUSCULTATION: wheezes Cardio: COMMON NORMALS: regular rate, regular rhythm, S1 normal heart sound present and S2 normal heart sound present RATE: regular rate RHYTHM: regular rhythm HEART SOUNDS: S1 normal heart sound present and S2 normal heart sound present GI: COMMON NORMALS: Normal to inspection, nondistended, normoactive bowel sounds present and non-tender Extremity: COMMON NORMALS: no pedal edema Neuro: COMMON NORMALS: patient oriented x3 Psych: COMMON NORMALS: mental status grossly normal Data 06/09/23 03:40 06/09/23 03:40 A&P Assessment and plan (1) Acute and chronic respiratory failure ([id number]): 73 year old female with history of COPD/emphysema, chronic hypoxic and hypercarbic respiratory failure, recurrent admissions for acute respiratory failure was brought in by EMS for lethargy and found to have abnormal ABG with PCO2 of 120 likely secondary to acute on chronic hypoxic and hypercarbic respiratory failure. acute on chronic COPD exacerbation. Respiratory viral panel negative. De-escalate antibiotics to doxycycline Continue scheduled nebulization with DuoNeb and budesonide. De-escalate steroids to prednisone Continue Daliresp 500 mcg daily. Continue BiPAP at nighttime and as needed during the day PT OT, alprazolam 0.5 mg 3 times daily scheduled No noted consolidation on chest x-ray. (2) Acute exacerbation of chronic obstructive airways disease: (3) Lethargic: Plan She is full code for now as per the discussion with the daughter Gissell Shea Spoke to patient, spoke to nursing staff patient daughter at bedside Plan for today, up out of bed, lidocaine patch for lower back pain, tramadol for lower back pain, will plan moving to general medical floors, continue antibiotics continue steroids, transition to prednisone tomorrow Attestations Medical Necessity Statement*: Patient requires hospitalization for acute on chronic respiratory failure secondary to COPD Plan for today, up out of bed, continue BiPAP as needed, tramadol as needed for pain, de-escalate to doxycycline, prednisone 40 mg p.o. daily Diagnoses Acute and chronic respiratory failure ([id number]) J96.20 Acute exacerbation of chronic obstructive airways disease J44.1 Lethargic R53.83
[2023-06-10] VITALS (11 sets, daily range): BP systolic 97–106; BP diastolic 58–65; PULSE 67–102; RESP 14–18; TEMP 36.4–36.7; O2SAT 92–100
[2023-06-10] MEDS: calcium carbonate 500 mg Chew Tablet PO (03:09)
[2023-06-10 04:46] LABS: Eosinophils % 0.1 %; Hematocrit 33.8 % (36-47); Lymphocytes # 1.6 10^3/uL (0.8-4.8); Lymphocytes % 22.5 %; Mean Corpuscular HGB Conc 27.8 g/dL (30-55); Mean Corpuscular Hemoglobin 25.9 pg (27-33); Mean Corpuscular Volume 93.1 fl (85-98); Mean Platelet Volume 9.5 fL (7.4-10.4); Monocytes # 1.1 10^3/uL (0.2-0.9); Monocytes % 15.1 %; Neutrophils # 4.45 10^3/uL (1.8-7.7); Nucleated Red Blood Cells % 0 %; Platelet Count 225 10^3/cmm (157-399); Red Blood Count 3.63 10^6/uL (3.85-5.65); Red Cell Distribution Width 14.6 % (12.1-15.1); White Blood Count 7.17 10^3/uL (3.29-11.43)
[2023-06-10 05:10] LABS: Alanine Aminotransferase 22 U/L (0-33); Albumin Level 3.3 g/dL (3.5-5.2); Alkaline Phosphatase 39 U/L (35-105); Anion Gap 6.8 (5-19); Aspartate Amino Transferase 18 U/L (0-32); Blood Urea Nitrogen 24 mg/dL (8-23); Calcium 10.1 mg/dL (8.5-10.5); Chloride 96 mmol/L (98-107); Globulin 2.1 g/dL (1.3-4.6); Glucose 111 mg/dL (65-115); Magnesium 2.3 mg/dL (1.7-2.3); Osmolality Calculated 293 mOsm/kg (285-295); Phosphorus 2.6 mg/dL (2.5-4.5); Potassium 4.8 mmol/L (3.5-5.1); Sodium 139 mmol/L (136-145); Total Bilirubin 0.2 mg/dL (0.15-1.2); Total Protein 5.4 g/dL (6.6-8.7)
[2023-06-10 05:15] LABS: Carbon Dioxide 41 mmol/L (22-29)
[2023-06-10] MEDS: ipratropium-albuterol 3 mL Neb INHALATION ×3 (07:30→15:02)
[2023-06-10] MEDS: budesonide 0.5 mg/2 mL Neb INHALATION (07:56)
[2023-06-10] MEDS: roflumilast 500 mcg Tablet PO (08:53)
[2023-06-10] MEDS: dilTIAZem 60 mg Tablet PO (08:53)
[2023-06-10] MEDS: pantoprazole DR 40 mg Tablet PO (08:54)
[2023-06-10] MEDS: apixaban 5 mg Tablet 2.5 MG PO (08:54)
[2023-06-10] MEDS: doxycycline 100 mg Tablet PO (08:54)
[2023-06-10] MEDS: predniSONE 20 mg Tablet 40 MG PO (08:54)
[2023-06-10] MEDS: metoprolol tartrate 25 mg Tablet 12.5 MG PO (08:54)
[2023-06-10] MEDS: ALPRAZolam 0.5 mg Tablet PO ×2 (08:54→14:36)
[2023-06-10] MEDS: lidocaine 5% Patch 1 PATCH TOPICAL (09:53)
--- NOTE | 2023-06-10 10:49 | P.DS_ITS ---
Discharge Providers Date of Admission: 06/06/23 00:02 Date of Discharge: June 10, 2023 Attending Provider at Admission: Dilma Bennett MD Attending Provider at Discharge: Herbie Cifuentes MD Primary Care Provider: Norman Lazo MD Diagnoses at Discharge Discharge Diagnosis (1) Acute and chronic respiratory failure ([id number]): Status: Acute (2) Acute exacerbation of chronic obstructive airways disease: Status: Acute (3) Lethargic: Status: Acute Reason for Visit Reason for Visit: LETHARGIC Hospital Course Hospital Course Marie Hull is a 73 year old female with history of COPD/emphysema, chronic hypoxic and hypercarbic respiratory failure, recurrent admissions for acute respiratory failure was brought in by EMS for lethargy this is a 73-year-old female with a past medical history of COPD, who presents to [facility] for shortness of breath secondary to COPD exacerbation, acute on chronic hypoxic hypercarbic respiratory failure requiring ICU admission, close monitoring, overall patient clinically improved, received PT OT, respiratory therapy eval, broad-spectrum antibiotic therapy, steroids, will be discharged on a prednisone taper, doxycycline, with a close follow-up with primary care as outpatient For anxiety, patient had persistent anxiety, especially when getting up and exertion herself, she tells me that she feels short of breath with exertion, when that happens she becomes very anxious, she starts hyperventilating, she checks her pulse ox, alprazolam dose was increased from 0.25 mg 3 times daily to 0.5 mg 3 times daily scheduled, she tolerated this well, most of her anxiety was controlled, she does tell me that at times when she does get up and exert herself she is able to be more calm, she is able to breathe through her anxiety, but sometimes she needs an extra dose of alprazolam. I had extensive discussion with her about benzodiazepines and severe COPD, risk of respiratory depression, her and her daughter voiced understanding, all questions answered, I will ncrease her alprazolam to 0.25 mg 3 times daily scheduled, and she can have an extra dose daily as needed 0.25 mg for anxiety associate with exertion. For her severe back pain, I have also placed her on tramadol 0.25 mg twice daily as needed as needed for low back pain, to be used with physical therapy, do not drive operate machinery or drink while taking medication, do not use with alprazolam Physical Exam Const: COMMON NORMALS: no acute distress and patient oriented x3 Resp: COMMON NORMALS: normal respiratory effort, No retractions, No use of accessory muscles and clear to auscultation bilaterally AUSCULTATION: clear to auscultation bilaterally Cardio: COMMON NORMALS: regular rate, regular rhythm, S1 normal heart sound present and S2 normal heart sound present RATE: regular rate RHYTHM: regular rhythm HEART SOUNDS: S1 normal heart sound present and S2 normal heart sound present GI: COMMON NORMALS: Normal to inspection, nondistended, normoactive bowel sounds present and non-tender Extremity: COMMON NORMALS: no pedal edema Neuro: COMMON NORMALS: patient oriented x3 Psych: COMMON NORMALS: mental status grossly normal Discharge Data Studies Completed and Pending Completed Studies During Hospitalization Category Date Time Status XR chest 1V portable [id number] Stat Exams 06/05/23 20:06 Completed Pending at discharge Category Date Time Status Blood Culture Stat Lab 06/05/23 20:47 Results Radiology Impressions Chest X-Ray 06/05/23 20:06 IMPRESSION: Biapical pleuroparenchymal fibrosis and bullous emphysematous changes, similar to prior exam. Laboratory Results WBC 7.17 10^3/uL (3.29-11.43) 06/10/23 04:37 RBC 3.63 10^6/uL (3.85-5.65) L 06/10/23 04:37 Hgb 9.40 g/dL (11.27-16.99) L 06/10/23 04:37 Hct 33.8 % (36-47) L 06/10/23 04:37 MCV 93.1 fl (85-98) 06/10/23 04:37 MCH 25.9 pg (27-33) L 06/10/23 04:37 MCHC 27.8 g/dL (30-55) L 06/10/23 04:37 RDW 14.6 % (12.1-15.1) 06/10/23 04:37 Plt Count 225 10^3/cmm (157-399) 06/10/23 04:37 MPV 9.5 fL (7.4-10.4) 06/10/23 04:37 Neut % (Auto) 62.0 % 06/10/23 04:37 Lymph % (Auto) 22.5 % 06/10/23 04:37 Gilchrist % (Auto) 15.1 % 06/10/23 04:37 Eos % (Auto) 0.1 % 06/10/23 04:37 Baso % (Auto) 0.0 % 06/10/23 04:37 Neut # (Auto) 4.45 10^3/uL (1.8-7.7) 06/10/23 04:37 Lymph # (Auto) 1.6 10^3/uL (0.8-4.8) 06/10/23 04:37 Gilchrist # (Auto) 1.1 10^3/uL (0.2-0.9) H 06/10/23 04:37 Eos # (Auto) 0.0 10^3/uL (0.0-0.8) 06/10/23 04:37 Baso # (Auto) 0.0 10^3/uL (0.0-0.1) 06/10/23 04:37 Nucleated RBC % (auto) 0 % 06/10/23 04:37 Nucleated RBCs # 0.0 /100WBC 06/10/23 04:37 Specimen Type Arterial 06/06/23 11:22 Sample Site Radial, left 06/06/23 11:22 ABG pH 7.40 (7.35-7.45) 06/06/23 11:22 ABG pCO2 66.0 mmHg (35-45) H* 06/06/23 11:22 ABG pO2 78.7 mmHg (80.0-100.0) L 06/06/23 11:22 ABG HCO3 41.0 mmol/L (22-26) H 06/06/23 11:22 ABG O2 Saturation 97.3 06/06/23 11:22 ABG Base Excess 14.0 mmol/L (-2.0-2.0) H 06/06/23 11:22 Nikolas Test Pos 06/06/23 11:22 A-a O2 Gradient 7.4 mmHg (5-10) 06/06/23 11:22 Hematocrit 30.0 % (37-47) L 06/06/23 11:22 Hgb O2 Saturation 94.8 % (95-100) L 06/06/23 11:22 Carboxyhemoglobin 2.2 %THgb (0.4-20.1) 06/06/23 11:22 Methemoglobin 0.4 % (0.4-1.5) 06/06/23 11:22 Total Hemoglobin 9.8 g/dL (12-16) L 06/06/23 11:22 Sodium 145.0 mmol/L (131-143) H 06/06/23 11:22 Potassium 4.1 mmol/L (3.5-5.0) 06/06/23 11:22 Glucose 135.0 mg/dL (70-115) H 06/06/23 11:22 Ionized Calcium 1.4 mmol/L (1.1-1.4) 06/06/23 11:22 O2 Delivery Device Bipap 06/06/23 11:22 O2 Liters/Min 4.0 % 06/05/23 20:25 FiO2 30.0 % 06/06/23 11:22 Tidal Volume 0.40 06/06/23 04:30 PEEP 8.0 cmH20 06/05/23 21:21 Drop Hammer Set Up Operator ID Cak 06/06/23 11:22 Sodium 139 mmol/L (136-145) 06/10/23 04:37 Potassium 4.8 mmol/L (3.5-5.1) 06/10/23 04:37 Chloride 96 mmol/L (98-107) L 06/10/23 04:37 Carbon Dioxide 41 mmol/L (22-29) H 06/10/23 04:37 Anion Gap 6.8 (5-19) 06/10/23 04:37 BUN 24 mg/dL (8-23) H 06/10/23 04:37 Creatinine 0.3 mg/dL (0.5-0.9) L 06/10/23 04:37 GFR Calculation Not Reportable 06/10/23 04:37 Glucose 111 mg/dL (65-115) 06/10/23 04:37 Calculated Osmolality 293 mOsm/kg (285-295) 06/10/23 04:37 Lactic Acid 0.8 mmol/L (0.5-2.2) 06/05/23 20:47 Calcium 10.1 mg/dL (8.5-10.5) 06/10/23 04:37 Phosphorus 2.6 mg/dL (2.5-4.5) 06/10/23 04:37 Magnesium 2.3 mg/dL (1.7-2.3) 06/10/23 04:37 Total Bilirubin 0.2 mg/dL (0.15-1.2) 06/10/23 04:37 AST 18 U/L (0-32) 06/10/23 04:37 ALT 22 U/L (0-33) 06/10/23 04:37 Alkaline Phosphatase 39 U/L (35-105) 06/10/23 04:37 Troponin T Baseline 34 ng/L (0-10) H 06/05/23 20:47 Troponin T 120 Minute 30.84 ng/L (0-10) H 06/05/23 22:20 Delta Troponin T -3.16 ABS# (0-10) L 06/05/23 22:20 Troponin T Hi Sens 6Hr 27.65 ng/L (0-10) H 06/06/23 03:27 Troponin T Hi Sens 6Hr Delta -6.35 ng/L (0-12) L 06/06/23 03:27 NT-Pro-B Natriuret Pep 256 pg/mL (0-125) H 06/06/23 03:27 Total Protein 5.4 g/dL (6.6-8.7) L 06/10/23 04:37 Albumin 3.3 g/dL (3.5-5.2) L 06/10/23 04:37 Globulin 2.1 g/dL (1.3-4.6) 06/10/23 04:37 Urine Color Yellow (Yellow) 06/05/23 23:39 Urine Appearance Clear (CLEAR) 06/05/23 23:39 Urine pH 5 (5-7) 06/05/23 23:39 Ur Specific [place] 1.020 (1.005-1.030) 06/05/23 23:39 Urine Protein Trace (Negative) 06/05/23 23:39 Urine Glucose (UA) Norm (Normal) 06/05/23 23:39 Urine Ketones Negative (Negative) 06/05/23 23:39 Urine Blood Neg (Negative) 06/05/23 23:39 Urine Nitrate Negative (Negative) 06/05/23 23:39 Urine Bilirubin Neg (Negative) 06/05/23 23:39 Urine Urobilinogen Neg mg/dL (Negative) 06/05/23 23:39 Ur Leukocyte Esterase Negative (Negative) 06/05/23 23:39 Urine RBC None /hpf (0-2) 06/05/23 23:39 Urine WBC 0-4 /hpf (0-5) H 06/05/23 23:39 Ur Squamous Epith Cells 0-4 /hpf (0-5) H 06/05/23 23:39 Amorphous Sediment Not Reportable 06/05/23 23:39 Urine Bacteria None /hpf (NONE) 06/05/23 23:39 Hyaline Casts 5-10 /lpf H 06/05/23 23:39 Urine Mucus 2+ /hpf 06/05/23 23:39 Nasal Influ A H1 2009 PCR Not detected (NOT DETECT) 06/05/23 22:24 Adenovirus (PCR) Not detected (NOT DETECT) 06/05/23 22:24 C. pneumoniae DNA (PCR) Not detected (NOT DETECT) 06/05/23 22:24 Coronavirus 229E (PCR) Not detected (NOT DETECT) 06/05/23 22:24 Human Metapneumovir PCR Not detected (NOT DETECT) 06/05/23 22:24 Influenza A (H1) PCR Not detected (NOT DETECT) 06/05/23 22:24 Influenza A (H3) PCR Not detected (NOT DETECT) 06/05/23 22:24 Influenza Type A (PCR) Not detected (NOT DETECT) 06/05/23 22:24 Influenza Type B (PCR) Not detected (NOT DETECT) 06/05/23 22:24 M. pneumoniae (PCR) Not detected (NOT DETECT) 06/05/23 22:24 Parainfluenza 1 (PCR) Not detected (NOT DETECT) 06/05/23 22:24 Parainfluenza 2 (PCR) Not detected (NOT DETECT) 06/05/23 22:24 Parainfluenza 3 (PCR) Not detected (NOT DETECT) 06/05/23 22:24 Parainfluenza 4 (PCR) Not detected (NOT DETECT) 06/05/23 22:24 RSV Type A (PCR) Not detected (NOT DETECT) 06/05/23 22:24 RSV Type B (PCR) Not detected (NOT DETECT) 06/05/23 22:24 Entero/Rhino (PCR) Not detected (NOT DETECT) 06/05/23 22:24 SARS-CoV-2 (PCR) Not detected (NOT DETECT) 06/05/23 22:24 Vitals Last Vital Signs Temp 98.1 F 06/10/23 07:29 Pulse 88 06/10/23 07:32 Resp 18 06/10/23 07:32 BP 106/64 06/10/23 07:29 Pulse Ox 97 06/10/23 07:32 O2 Del Method Nasal Cannula 06/10/23 07:32 O2 Flow Rate 3 06/10/23 08:00 FiO2 30 06/10/23 00:33 Discharge Plan Discharge Patient Disposition: Home Health Service Condition: Stable Prescriptions: New doxycycline monohydrate 100 mg Tablet 100 mg PO BID 5 Days Qty: 10 0RF tramadol 50 mg Tablet 25 mg PO Q12H PRN (Reason: Moderate Pain) 7 Days Qty: 7 0RF alprazolam 0.5 mg Tablet 0.5 mg PO QID PRN (Reason: Anxiety) 7 Days Qty: 28 0RF Continued azithromycin 250 mg tablet 250 mg PO .3 times weekly Qty: 36 3RF Rx Instructions: Take 1 tab (250mg) on Mondays, Wednesdays, and Fridays (DME) oxygen small bottle See Rx Instructions .Route .MEDSUPPLY Qty: 1 0RF Rx Instructions: switch condensor to small tank budesonide 0.5 mg/2 mL suspension for nebulization 0.5 mg inhalation BID Qty: 60 6RF formoterol fumarate [Perforomist] 20 mcg/2 mL solution for nebulization 2 ml inhalation BID Qty: 120 6RF lidocaine 1.8 % adhesive patch,medicated 1 patch topical DAILY Qty: 30 2RF Rx Instructions: leave on most painful area for up to 12 hrs levocetirizine 5 mg tablet 5 mg PO DAILY Qty: 30 5RF albuterol sulfate [Ventolin HFA] 90 mcg/actuation HFA aerosol inhaler 1 puff INHALATION TID PRN (Reason: Shortness Of Breath) Qty: 18 3RF Yupelri 175 mcg/3 mL solution for nebulization 175 mcg inhalation DAILY Qty: 90 6RF Rx Instructions: Approved 04/02/23-03/31/24 cholecalciferol (vitamin D3) [Vitamin D3] 25 mcg (1,000 unit) Tablet 1,000 unit PO QAM ipratropium-albuterol 0.5 mg-3 mg(2.5 mg base)/3 mL solution for nebulization 3 ml INHALATION TID PRN (Reason: Shortness Of Breath) roflumilast 500 mcg Tablet 500 mcg PO DAILY Qty: 90 0RF furosemide [Lasix] 20 mg tablet 20 mg PO DAILY PRN (Reason: edema) Qty: 60 0RF Rx Instructions: Take potassium with Lasix on Mon, Wed, Fri potassium chloride 20 mEq tablet extended release 20 meq PO DAILY PRN (Reason: Only with Lasix) Qty: 60 0RF Rx Instructions: Only with Lasix Mon, Wed, Fri calcium carbonate [Calcium 600] 600 mg calcium (1,500 mg) Tablet 600 mg PO QAM metoprolol tartrate 25 mg tablet 12.5 mg PO BID 30 Days Qty: 30 0RF pantoprazole 40 mg tablet,delayed release (DR/EC) 40 mg PO BIDWM 30 Days Qty: 60 0RF Lumigan 0.01 % drops 1 drp ophthalmic (eye) BEDTIME Rx Instructions: both eyes diltiazem HCl 60 mg tablet 60 mg PO BID Eliquis 2.5 mg tablet 2.5 mg PO BID prednisone 10 mg tablet See Rx Instructions .ROUTE .COMPLEX Qty: 53 0RF Rx Instructions: 4 tabs for 5 days, 3 tabs for 5 days, 2 tabs for 5 days, 1 tab for 5 days, 0.5 tabs for 5 days Discontinued alprazolam 0.25 mg tablet 0.25 mg PO TID PRN (Reason: anxiety) Qty: 60 2RF Discharge Orders: Discharge Order (Routine); Ordered 06/10/23 Ordered By: Herbie Cifuentes Referrals: [facility]) [Outside] Norman Lazo MD [Primary Care Provider] - Discharge Diet: Cardiac Discharge Activity: Resume usual activity Patient Instructions: Opioid Safety Activity Restrictions/Additional Instructions: -please donot take tramadol and alprazolam together -please use tramadol sparingly, for back pain, donot drive or operate heavy machinery or drink whie taking medication -please use alprazolam sparingly, donot drive or operate heavy machinery or drink whie taking medication - Discharge Attestations Time Spent in Discharge Care*: greater than 30 min Status at Discharge: Cognitive status at discharge: cognitively intact , Behavioral status at discharge: cooperative , Quality Metrics Clinical Quality Measures [ No reported AMI, CVA or VTE this stay] Coding Level of Care Code 68691 Total time (in minutes) for Discharge: 45 Diagnoses Acute and chronic respiratory failure ([id number]) J96.20 Acute exacerbation of chronic obstructive airways disease J44.1 Lethargic R53.83
--- NOTE | 2023-06-10 12:39 | PC.NURSE ---
Patient and daughter talked with Dr. Cifuentes about discharge. Daughter will be here to pick patient up after 5 pm.
--- NOTE | 2023-06-10 16:56 | PC.NURSE ---
Discussed discharge, new medications, continued medications, follow up appointments and answered all questions for patient and family member. Verbalized understanding of all discussed.
== END 2023-06-10 17:07 | disposition home health service (06) | DRG 189 ==
LOC: ER 23:13 → ICU 06-06 00:13 → MEDSURG 06-09 17:55
PROVIDERS: Student in an Organized Health Care Education/Training Program; Admitting Provider Internal Medicine; Emergency Provider Emergency Medicine; PCP Family Medicine; Visit Provider Family Medicine
DX: J96.22 Acute and chronic respiratory failure with hypercapnia (principal); I50.32 Chronic diastolic (congestive) heart failure; J96.21 Acute and chronic respiratory failure with hypoxia; J43.9 Emphysema, unspecified; F41.9 Anxiety disorder, unspecified; M54.9 Dorsalgia, unspecified; Z79.01 Long term (current) use of anticoagulants; Z79.52 Long term (current) use of systemic steroids; I48.0 Paroxysmal atrial fibrillation; J84.10 Pulmonary fibrosis, unspecified; Z20.822 Contact with and (suspected) exposure to COVID-19
CPT/HCPCS: 36415; 36416; 36430; 36600; 70450; 71045; 72125; 72192; 73110; 73502; 76000; 80048; 80051; 80053; 80162; 81001; 82330; 82550; 82607; 82803; 82805; 82962; 83605; 83735; 83880; 84100; 84484; 85014; 85018; 85025; 85610; 85730; 86850; 86900; 86920; 87040; 87486; 87581; 87633; 90471; 90686; 93005; 94640; 94660; 96361; 96365; 96367; 96372; 96374; 96375; 96376; 97110; 97116; 97161; 97163; 97165; 97166; 97530; 97535; 99285; 99291; C1713; C9113; J0456; J0690; J0696; J1160; J1650; J1885; J1940; J2270; J2405; J2704; J2920; J2930; J3010; J3420; J3490; J7030; J7050; J7512; J7613; J7626; J7799; L3908; P9016; Q0144

== ENCOUNTER 2023-06-11 16:33 | Inpatient (IN) | payer MEDICARE, MEDICAID, SELFPAY ==
[2023-06-11] VITALS (15 sets, daily range): BP systolic 114–123; BP diastolic 55–73; PULSE 89–102; RESP 16–22; TEMP 36.4–37; O2SAT 89–100
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
--- NOTE | 2023-06-11 16:50 | W.ED.EXTPRO ---
Documented by User: RACHELE Castano 06/11/23 19:39 HPI - Extremity Problem General: Chief complaint: Extremity Injury, Lower Stated complaint: fall Time Seen by Provider: 06/11/23 16:36 History of Present Illness: 73-year-old female comes in today for complaints of injury to the right lower leg. Patient reports that she was going to help clean up after lunch when she turned and lost her balance and fell. Patient had obvious shortening and rotation of the right lower extremity. Patient also has bruising to the right wrist. Patient has a chronic history of COPD with emphysema, CHF, atrial fib, osteoporosis. Patient recently been discharged from the hospital for exacerbation of COPD on 06/10. Last meal was around 1330. Patient was given fentanyl in route by EMS which caused respiratory depression. Patient is anticoagulated with Eliquis. Associated symptoms: Deny chest pain or rash Review of Systems General: Reports: 10 or more systems reviewed and unremarkable except in HPI and below Card: Denies: chest pain Resp: Reports: dyspnea (Chronic no worsening) GI: Denies: nausea, vomiting, diarrhea or constipation Musc: Reports: extremity pain Skin/Breast: Denies: rash Neuro: Denies: headache(s) PFSH ED PFSH: Medical History Acute exacerbation of chronic obstructive airways disease Acute exacerbation of chronic obstructive airways disease Acute hypercapnic respiratory failure Acute on chronic respiratory failure with hypoxia and hypercapnia Acute on chronic respiratory failure with hypoxia and hypercapnia Atrial fibrillation transient, during acute COPD exacerbation in 2019 Back pain Chest pain Chronic obstructive pulmonary emphysema Chronic respiratory failure with hypoxia and hypercapnia COPD (chronic obstructive pulmonary disease) Diastolic CHF History of echocardiogram 08/2019 EF 65%, grade I/IV diastolic dysfunction, PAP within normal limits History of PFTs 10/2019 severe airflow obstruction, FEV1/FVC of 33%, FEV1 0.57 L 29% predicted, FVC 1.76 L 71% predicted, TLC 107%, RV 163%, reduced DLCO at 25% Hyperkalemia Mass of upper lobe of left lung cavitary appearance, never biopsied due to risk of complication and non-surgical candidate, has been stable on imaging On home oxygen therapy 2-3 L BNC at baseline Osteoarthritis Osteoporosis Paroxysmal A-fib Personal history of nicotine dependence quit in 2019, but still with 2nd hand exposure Pseudomonas aeruginosa colonization Pulmonary fibrosis Pulmonary nodule left lower lobe Seasonal allergies Uses bilevel positive airway pressure (BPAP) ventilation at home [facility], via [facility] emergency department Surgical History History of kyphoplasty (2014) L1, L2, L3, L5 performed by Dr. Roman Marquez Family History Mother CAD (coronary artery disease) Social History Smoking and tobacco/nicotine status: former use of tobacco/nicotine Quit status (tobacco/nicotine): has quit using Year quit tobacco: 2019 - 1PPD x 50 Years Second hand smoke exposure: Yes Alcohol intake: never Substance/Drug Use: never Lives independently: Yes Household members: none Marital status: Current occupational status: retired Do you think of yourself as: Straight/Heterosexual Current gender identity: Female Physical Exam Const: COMMON NORMALS: alert HENMT: COMMON NORMALS: normocephalic HEAD & SCALP: normocephalic FACE & SINUS: laceration (Superficial right brow) Neck/C-Spine: COMMON NORMALS: full ROM Chest: COMMONS NORMALS: normal inspection of the chest Resp: COMMON NORMALS: normal respiratory effort AUSCULTATION: diminished lung sounds Cardio: COMMON NORMALS: regular rate RATE: regular rate GI: COMMON NORMALS: Soft to palpation and non-tender PALPATION: Yes Soft to palpation Back/Pelvis: LUMBAR SPINE/LOWER BACK: No lumbar spinal tenderness Extremity: RIGHT UPPER EXTREMITY: Yes hand & digits (Bruising right wrist) RIGHT LOWER EXTREMITY: Yes hip joint (Abnormal distal rotation and shortening) Right hip: Yes inspection and Yes palpation Neuro: SENSORIUM/ORIENTATION: Yes alert Skin: TRAUMA: abrasion (Right wrist) and laceration (Right eyebrow) Procedures Laceration Laceration 1: Site: face Side (If applicable): right Size (cm): 1 Description: linear Depth: simple, single layer Pre-repair: wound explored and irrigated extensively Skin layer closed with: other (skin adhesive) Course ED course: 1742, reviewed patient with Dr. Da Silva who assumed care of patient for admission to hospitalist and orthopedic services. Vital Signs: Vital signs: Vital Signs Temperature 98.3 F 06/15/23 10:56 Pulse Rate 78 06/15/23 10:56 Respiratory Rate 14 06/15/23 10:56 Blood Pressure 109/50 06/15/23 10:56 Pulse Oximetry 91 06/15/23 10:56 Oxygen Delivery Me thod Nasal Cannula 06/15/23 10:56 Oxygen Flow Rate 3 06/14/23 21:06 Fraction of Inspir ed Oxygen 32 06/15/23 07:58 MDM - Extremity (Nontraumatic) Medical Decision Making 73-year-old female comes in today for fall injury. Patient had lost her balance and fell while maneuvering in the kitchen after lunch. Patient has shortening and external rotation of the right lower extremity. Pulses are intact. Patient reports hip pain. Patient has bruising and minimal swelling to the right wrist. Patient has not superficial laceration to the right eyebrow. Patient is on chronic oxygen for COPD. Differential diagnosis includes but not limited to dislocation, contusion, fracture. Patient will be mid to hospitalist services for management of chronic conditions. Orthopedics will be consulted for management of hip fracture. Lab Data 06/15/23 05:42 06/15/23 05:[address] 06/11/23 16:42 IMPRESSION: 1. No acute abnormality of the brain. 2. Mildly comminuted and displaced fracture of multiple right facial bones, the constellation of findings suggests a right zygomaticomaxillary fracture. CT scan of the facial bones is recommended for further evaluation. 3. Mild contusion of the intraorbital fat in the posterior/inferior right orbit. 4. Large air-fluid level in the right maxillary sinus and small air-fluid levels in the ethmoid and sphenoid sinuses, likely representing hemorrhage from trauma. 5. Mild contusion of the right cheek. 6. Small amount of fluid in the right and left mastoid air cells. 7. Incidental/nonacute findings are listed in the report. Wrist X-Ray 06/11/23 16:42 IMPRESSION: Probable nonacute findings. Cervical Spine CT 06/11/23 16:52 IMPRESSION: 1. There is a mildly comminuted and displaced fracture of the posterior/lateral wall of the visualized right maxillary sinus. CT scan of the facial bones is recommended for further evaluation. 2. Large air-fluid level in the visualized right maxillary sinus and small air-fluid levels in the visualized sphenoid sinuses, possibly due to hemorrhage. 3. No acute fracture of the cervical spine. 4. Multilevel degenerative changes of varying severity in the visualized spine. 5. Small amount of fluid in the right and left mastoid air cells. 6. Incidental/nonacute findings are listed in the report. Chest X-Ray 06/11/23 17:09 IMPRESSION: Stable chest x-ray. No acute findings. Pelvis CT 06/11/23 17:19 IMPRESSION: Intertrochanteric fracture proximal right femur. Laboratory Results WBC 11.14 10^3/uL (3.29-11.43) 06/11/23 16:51 RBC 3.56 10^6/uL (3.85-5.65) L 06/11/23 16:51 Hgb 9.50 g/dL (11.27-16.99) L 06/11/23 16:51 Hct 33.6 % (36-47) L 06/11/23 16:51 MCV 94.4 fl (85-98) 06/11/23 16:51 MCH 26.7 pg (27-33) L 06/11/23 16:51 MCHC 28.3 g/dL (30-55) L 06/11/23 16:51 RDW 14.5 % (12.1-15.1) 06/11/23 16:51 Plt Count 227 10^3/cmm (157-399) 06/11/23 16:51 MPV 9.6 fL (7.4-10.4) 06/11/23 16:51 Neut % (Auto) 69.0 % 06/11/23 16:51 Lymph % (Auto) 17.7 % 06/11/23 16:51 Rankin % (Auto) 12.0 % 06/11/23 16:51 Eos % (Auto) 0.8 % 06/11/23 16:51 Baso % (Auto) 0.1 % 06/11/23 16:51 Neut # (Auto) 7.69 10^3/uL (1.8-7.7) 06/11/23 16:51 Lymph # (Auto) 2.0 10^3/uL (0.8-4.8) 06/11/23 16:51 Rankin # (Auto) 1.3 10^3/uL (0.2-0.9) H 06/11/23 16:51 Eos # (Auto) 0.1 10^3/uL (0.0-0.8) 06/11/23 16:51 Baso # (Auto) 0.0 10^3/uL (0.0-0.1) 06/11/23 16:51 Nucleated RBC % (auto) 0 % 06/11/23 16:51 Nucleated RBCs # 0.0 /100WBC 06/11/23 16:51 Specimen Type Arterial 06/11/23 17:08 Sample Site Radial, left 06/11/23 17:08 ABG pH 7.35 (7.35-7.45) 06/11/23 17:08 ABG pCO2 81.0 mmHg (35-45) H* 06/11/23 17:08 ABG pO2 62.0 mmHg (80.0-100.0) L 06/11/23 17:08 ABG HCO3 44.8 mmol/L (22-26) H 06/11/23 17:08 ABG Base Excess 16.6 mmol/L (-2.0-2.0) H 06/11/23 17:08 Nikolas Test Pos 06/11/23 17:08 Hematocrit 26.9 % (37-47) L 06/11/23 17:08 O2 Delivery Device Nc 06/11/23 17:08 O2 Liters/Min 4.0 % 06/11/23 17:08 FiO2 36.0 % 06/11/23 17:08 Contour Stitcher ID Cak 06/11/23 17:08 Sodium 139 mmol/L (136-145) 06/11/23 16:51 Potassium 4.6 mmol/L (3.5-5.1) 06/11/23 16:51 Chloride 97 mmol/L (98-107) L 06/11/23 16:51 Carbon Dioxide 38 mmol/L (22-29) H 06/11/23 16:51 Anion Gap 8.6 (5-19) 06/11/23 16:51 BUN 19 mg/dL (8-23) 06/11/23 16:51 Creatinine 0.3 mg/dL (0.5-0.9) L 06/11/23 16:51 GFR Calculation Not Reportable 06/11/23 16:51 Glucose 122 mg/dL (65-115) H 06/11/23 16:51 Calculated Osmolality 292 mOsm/kg (285-295) 06/11/23 16:51 Calcium 9.9 mg/dL (8.5-10.5) 06/11/23 16:51 Total Bilirubin 0.2 mg/dL (0.15-1.2) 06/11/23 16:51 AST 16 U/L (0-32) 06/11/23 16:51 ALT 20 U/L (0-33) 06/11/23 16:51 Alkaline Phosphatase 39 U/L (35-105) 06/11/23 16:51 Creatine Kinase 29 U/L (26-192) 06/11/23 16:51 Total Protein 5.4 g/dL (6.6-8.7) L 06/11/23 16:51 Albumin 3.2 g/dL (3.5-5.2) L 06/11/23 16:51 Globulin 2.2 g/dL (1.3-4.6) 06/11/23 16:51 All radiology interpretation(s) finalized by discharge Discharge Plan Discharge Patient Disposition: Admitted As Inpatient Admit Provider: Brock Christensen Clinical Impression: Femur fracture, right, COPD (chronic obstructive pulmonary disease) Condition: Stable Discharge Diet: Advance as tolerated Discharge Activity: Limit activity as instructed Sign Out Sign Out Data: Patient Sign Out occurred on 06/11/23 at 17:05. Patient's care was discussed, and care was transferred from Dania Barber PA-C to López Lindsay. Sign Out Comment: waiting on imaging Last updated by Dania Barber PA-C at 06/11/23 16:51 Patient Sign Out occurred on 06/11/23 at 17:52. Patient's care was discussed, and care was transferred from to Brant Da Silva DO. Coding Level of Care Code ED Learning Program Manager for Chg Fwd Documented by User: Brant Da Silva DO 06/15/23 11:11 HPI - Extremity Problem General: Chief complaint: Extremity Injury, Lower Stated complaint: fall Time Seen by Provider: 06/11/23 16:36 PFSH ED PFSH: Medical History Acute exacerbation of chronic obstructive airways disease Acute exacerbation of chronic obstructive airways disease Acute hypercapnic respiratory failure Acute on chronic respiratory failure with hypoxia and hypercapnia Acute on chronic respiratory failure with hypoxia and hypercapnia Atrial fibrillation transient, during acute COPD exacerbation in 2019 Back pain Chest pain Chronic obstructive pulmonary emphysema Chronic respiratory failure with hypoxia and hypercapnia COPD (chronic obstructive pulmonary disease) Diastolic CHF History of echocardiogram 08/2019 EF 65%, grade I/IV diastolic dysfunction, PAP within normal limits History of PFTs 10/2019 severe airflow obstruction, FEV1/FVC of 33%, FEV1 0.57 L 29% predicted, FVC 1.76 L 71% predicted, TLC 107%, RV 163%, reduced DLCO at 25% Hyperkalemia Mass of upper lobe of left lung cavitary appearance, never biopsied due to risk of complication and non-surgical candidate, has been stable on imaging On home oxygen therapy 2-3 L BNC at baseline Osteoarthritis Osteoporosis Paroxysmal A-fib Personal history of nicotine dependence quit in 2018, but still with 2nd hand exposure Pseudomonas aeruginosa colonization Pulmonary fibrosis Pulmonary nodule left lower lobe Seasonal allergies Uses bilevel positive airway pressure (BPAP) ventilation at home [facility], via [facility] emergency department Surgical History History of kyphoplasty (2014) L1, L2, L3, L5 performed by Dr. Roman Marquez Family History Mother CAD (coronary artery disease) Social History Smoking and tobacco/nicotine status: former use of tobacco/nicotine Quit status (tobacco/nicotine): has quit using Year quit tobacco: 2019 - 1PPD x 50 Years Second hand smoke exposure: Yes Alcohol intake: never Substance/Drug Use: never Lives independently: Yes Household members: none Marital status: Current occupational status: retired Do you think of yourself as: Straight/Heterosexual Current gender identity: Female Physical Exam Const: GENERAL APPEARANCE: cooperative and comfortable ORIENTATION/CONSCIOUSNESS: Yes awake, Yes oriented to person, Yes oriented to place and Yes oriented to time HENMT: COMMON NORMALS: normocephalic, atraumatic and hearing grossly normal bilaterally HEAD & SCALP: normocephalic and atraumatic Resp: COMMON NORMALS: No retractions and No use of accessory muscles AUSCULTATION: wheezes Cardio: COMMON NORMALS: regular rate, regular rhythm and No murmurs present (Cardio) RATE: regular rate RHYTHM: regular rhythm GI: COMMON NORMALS: Soft to palpation and No hepatosplenomegaly present AUSCULTATION: Yes normoactive bowel sounds PALPATION: Yes Soft to palpation, No Tenderness to palpation present (GI), No Guarding due to palpation present (GI) and Yes No hepatosplenomegaly present Extremity: COMMON NORMALS: normal to inspection, capillary refill normal, no clubbing, cyanosis or edema, no calf tenderness and no pedal edema Neuro: SENSORIUM/ORIENTATION: Yes oriented to person, Yes oriented to place and Yes oriented to time Skin: COMMON NORMALS: no rashes or lesions noted GENERAL SKIN EXAM: no rashes or lesions noted Course Vital Signs: Vital signs: Vital Signs Temperature 98.3 F 06/15/23 10:56 Pulse Rate 78 06/15/23 10:56 Respiratory Rate 14 06/15/23 10:56 Blood Pressure 109/50 06/15/23 10:56 Pulse Oximetry 91 06/15/23 10:56 Oxygen Delivery Me thod Nasal Cannula 06/15/23 10:56 Oxygen Flow Rate 3 06/14/23 21:06 Fraction of Inspir ed Oxygen 32 06/15/23 07:58 MDM - Extremity (Nontraumatic) Medical Decision Making 73-year-old female comes in today for fall injury. Patient had lost her balance and fell while maneuvering in the kitchen after lunch. Patient has shortening and external rotation of the right lower extremity. Pulses are intact. Patient reports hip pain. Patient has bruising and minimal swelling to the right wrist. Patient has not superficial laceration to the right eyebrow. Patient is on chronic oxygen for COPD. Differential diagnosis includes but not limited to dislocation, contusion, fracture. Patient will be mid to hospitalist services for management of chronic conditions. Orthopedics will be consulted for management of hip fracture. Patient seen and evaluated. Stable at this time right hip fracture mild displacement. Discussed with hospitalist and with orthopedics will admit orders written Medical Records I reviewed the patient's medical records. Lab Data I reviewed the patient's lab results. 06/15/23 05:42 06/15/23 05:[address] 06/11/23 16:42 IMPRESSION: 1. No acute abnormality of the brain. 2. Mildly comminuted and displaced fracture of multiple right facial bones, the constellation of findings suggests a right zygomaticomaxillary fracture. CT scan of the facial bones is recommended for further evaluation. 3. Mild contusion of the intraorbital fat in the posterior/inferior right orbit. 4. Large air-fluid level in the right maxillary sinus and small air-fluid levels in the ethmoid and sphenoid sinuses, likely representing hemorrhage from trauma. 5. Mild contusion of the right cheek. 6. Small amount of fluid in the right and left mastoid air cells. 7. Incidental/nonacute findings are listed in the report. Wrist X-Ray 06/11/23 16:42 IMPRESSION: Probable nonacute findings. Cervical Spine CT 06/11/23 16:52 IMPRESSION: 1. There is a mildly comminuted and displaced fracture of the posterior/lateral wall of the visualized right maxillary sinus. CT scan of the facial bones is recommended for further evaluation. 2. Large air-fluid level in the visualized right maxillary sinus and small air-fluid levels in the visualized sphenoid sinuses, possibly due to hemorrhage. 3. No acute fracture of the cervical spine. 4. Multilevel degenerative changes of varying severity in the visualized spine. 5. Small amount of fluid in the right and left mastoid air cells. 6. Incidental/nonacute findings are listed in the report. Chest X-Ray 06/11/23 17:09 IMPRESSION: Stable chest x-ray. No acute findings. Pelvis CT 06/11/23 17:19 IMPRESSION: Intertrochanteric fracture proximal right femur. Laboratory Results WBC 11.14 10^3/uL (3.29-11.43) 06/11/23 16:51 RBC 3.56 10^6/uL (3.85-5.65) L 06/11/23 16:51 Hgb 9.50 g/dL (11.27-16.99) L 06/11/23 16:51 Hct 33.6 % (36-47) L 06/11/23 16:51 MCV 94.4 fl (85-98) 06/11/23 16:51 MCH 26.7 pg (27-33) L 06/11/23 16:51 MCHC 28.3 g/dL (30-55) L 06/11/23 16:51 RDW 14.5 % (12.1-15.1) 06/11/23 16:51 Plt Count 227 10^3/cmm (157-399) 06/11/23 16:51 MPV 9.6 fL (7.4-10.4) 06/11/23 16:51 Neut % (Auto) 69.0 % 06/11/23 16:51 Lymph % (Auto) 17.7 % 06/11/23 16:51 Rankin % (Auto) 12.0 % 06/11/23 16:51 Eos % (Auto) 0.8 % 06/11/23 16:51 Baso % (Auto) 0.1 % 06/11/23 16:51 Neut # (Auto) 7.69 10^3/uL (1.8-7.7) 06/11/23 16:51 Lymph # (Auto) 2.0 10^3/uL (0.8-4.8) 06/11/23 16:51 Rankin # (Auto) 1.3 10^3/uL (0.2-0.9) H 06/11/23 16:51 Eos # (Auto) 0.1 10^3/uL (0.0-0.8) 06/11/23 16:51 Baso # (Auto) 0.0 10^3/uL (0.0-0.1) 06/11/23 16:51 Nucleated RBC % (auto) 0 % 06/11/23 16:51 Nucleated RBCs # 0.0 /100WBC 06/11/23 16:51 Specimen Type Arterial 06/11/23 17:08 Sample Site Radial, left 06/11/23 17:08 ABG pH 7.35 (7.35-7.45) 06/11/23 17:08 ABG pCO2 81.0 mmHg (35-45) H* 06/11/23 17:08 ABG pO2 62.0 mmHg (80.0-100.0) L 06/11/23 17:08 ABG HCO3 44.8 mmol/L (22-26) H 06/11/23 17:08 ABG Base Excess 16.6 mmol/L (-2.0-2.0) H 06/11/23 17:08 Nikolas Test Pos 06/11/23 17:08 Hematocrit 26.9 % (37-47) L 06/11/23 17:08 O2 Delivery Device Nc 06/11/23 17:08 O2 Liters/Min 4.0 % 06/11/23 17:08 FiO2 36.0 % 06/11/23 17:08 Contour Stitcher ID Cak 06/11/23 17:08 Sodium 139 mmol/L (136-145) 06/11/23 16:51 Potassium 4.6 mmol/L (3.5-5.1) 06/11/23 16:51 Chloride 97 mmol/L (98-107) L 06/11/23 16:51 Carbon Dioxide 38 mmol/L (22-29) H 06/11/23 16:51 Anion Gap 8.6 (5-19) 06/11/23 16:51 BUN 19 mg/dL (8-23) 06/11/23 16:51 Creatinine 0.3 mg/dL (0.5-0.9) L 06/11/23 16:51 GFR Calculation Not Reportable 06/11/23 16:51 Glucose 122 mg/dL (65-115) H 06/11/23 16:51 Calculated Osmolality 292 mOsm/kg (285-295) 06/11/23 16:51 Calcium 9.9 mg/dL (8.5-10.5) 06/11/23 16:51 Total Bilirubin 0.2 mg/dL (0.15-1.2) 06/11/23 16:51 AST 16 U/L (0-32) 06/11/23 16:51 ALT 20 U/L (0-33) 06/11/23 16:51 Alkaline Phosphatase 39 U/L (35-105) 06/11/23 16:51 Creatine Kinase 29 U/L (26-192) 06/11/23 16:51 Total Protein 5.4 g/dL (6.6-8.7) L 06/11/23 16:51 Albumin 3.2 g/dL (3.5-5.2) L 06/11/23 16:51 Globulin 2.2 g/dL (1.3-4.6) 06/11/23 16:51 Discharge Plan Discharge Patient Disposition: Admitted As Inpatient Admit Provider: Brock Christensen Clinical Impression: Femur fracture, right, COPD (chronic obstructive pulmonary disease) Condition: Stable Discharge Diet: Advance as tolerated Discharge Activity: Limit activity as instructed Sign Out Sign Out Data: Patient Sign Out occurred on 06/11/23 at 17:05. Patient's care was discussed, and care was transferred from Dania Barber PA-C to López Lindsay. Sign Out Comment: waiting on imaging Last updated by Dania Barber PA-C at 06/11/23 16:51 Patient Sign Out occurred on 06/11/23 at 17:52. Patient's care was discussed, and care was transferred from to Brant Da Silva DO. Coding Level of Care Code ED Learning Program Manager for Jihan Jimenes
--- NOTE | 2023-06-11 16:52 | CTR_ITS ---
PROCEDURE INFORMATION: Exam: CT Cervical Spine Without Contrast Exam date and time: 06/11/2023 5:16 PM Age: 73 years old Clinical indication: Injury or trauma; Fall; Blunt trauma; Injury date: 06/11/23 TECHNIQUE: Imaging protocol: Computed tomography of the cervical spine without contrast. Sagittal, oblique axial, and coronal reformatted images were created and reviewed. Radiation optimization: All CT scans at this facility use at least one of these dose optimization techniques: automated exposure control; mA and/or kV adjustment per patient size (includes targeted exams where dose is matched to clinical indication); or iterative reconstruction. REPORTING DATA: Count of CT and Cardiac NM exams in prior 12 months: This patient has received 3 known CTs and 0 known cardiac nuclear medicine studies in the 12 months prior to the current study. COMPARISON: CT chest wo con [id number] 03/08/2023 10:11 AM RADIATION DOSE METRICS: Total DLP (mGy-cm): 414.3 FINDINGS: Bones/joints: Vertebral body height is maintained. No subluxation. Bones are diffusely osteopenic. Multilevel degenerative changes of varying severity in the visualized spine. Mild spinal canal stenosis at C4-C5, C5-C6, and C6-C7. Multilevel foraminal stenosis of varying severity in the visualized spine. No acute fracture of the cervical spine. Paranasal sinuses: There is a mildly comminuted and displaced fracture of the posterior/lateral wall of the visualized right maxillary sinus. Large air-fluid level in the visualized right maxillary sinus and small air-fluid levels in the visualized sphenoid sinuses, possibly due to hemorrhage. Mastoid air cells: Small amount of fluid in the right and left mastoid air cells. Lungs: Extensive paraseptal and centrilobular emphysematous changes in the visualized lungs. Multiple areas of scarring with interstitial thickening and cylindrical bronchiectasis in the visualized lungs as well. Stable bilateral apical pleural thickening with areas of calcification. Findings are stable. Soft tissues: No soft tissue swelling. No radiopaque foreign body. CT/CT cervical spin wo con* [id number] IMPRESSION: 1. There is a mildly comminuted and displaced fracture of the posterior/lateral wall of the visualized right maxillary sinus. CT scan of the facial bones is recommended for further evaluation. 2. Large air-fluid level in the visualized right maxillary sinus and small air-fluid levels in the visualized sphenoid sinuses, possibly due to hemorrhage. 3. No acute fracture of the cervical spine. 4. Multilevel degenerative changes of varying severity in the visualized spine. 5. Small amount of fluid in the right and left mastoid air cells. 6. Incidental/nonacute findings are listed in the report.
[2023-06-11 16:58] LABS: Basophils % 0.1 %; Eosinophils # 0.1 10^3/uL (0.0-0.8); Eosinophils % 0.8 %; Hematocrit 33.6 % (36-47); Lymphocytes % 17.7 %; Mean Corpuscular HGB Conc 28.3 g/dL (30-55); Mean Corpuscular Hemoglobin 26.7 pg (27-33); Mean Corpuscular Volume 94.4 fl (85-98); Mean Platelet Volume 9.6 fL (7.4-10.4); Monocytes # 1.3 10^3/uL (0.2-0.9); Neutrophils # 7.69 10^3/uL (1.8-7.7); Nucleated Red Blood Cells % 0 %; Platelet Count 227 10^3/cmm (157-399); Red Blood Count 3.56 10^6/uL (3.85-5.65); Red Cell Distribution Width 14.5 % (12.1-15.1); White Blood Count 11.14 10^3/uL (3.29-11.43)
--- NOTE | 2023-06-11 17:09 | XRR_ITS ---
PROCEDURE INFORMATION: Exam: XR Chest Exam date and time: 06/11/2023 5:31 PM Age: 73 years old Clinical indication: Shortness of breath; Patient HX: Respiratory distress; Increased o2 requirement TECHNIQUE: Imaging protocol: Radiologic exam of the chest. Views: 1 view. COMPARISON: 1. CR (CHEST, ) 06/05/2023 8:[address] chest wo con [id number] 03/08/2023 10:11 AM FINDINGS: Lungs: Extensive bilateral apical scarring with suspected blebs/bullae is again seen. This correlates with the previous CT findings Pleural spaces: Unremarkable. No pleural effusion. No pneumothorax. Heart/Mediastinum: Unremarkable. No cardiomegaly. Bones/joints: 5 level lower thoracic upper lumbar kyphoplasty is seen. No acute findings. XR/XR chest 1V portable [id number] IMPRESSION: Stable chest x-ray. No acute findings.
[2023-06-11 17:15] LABS: Alanine Aminotransferase 20 U/L (0-33); Albumin Level 3.2 g/dL (3.5-5.2); Alkaline Phosphatase 39 U/L (35-105); Aspartate Amino Transferase 16 U/L (0-32); Blood Urea Nitrogen 19 mg/dL (8-23); Calcium 9.9 mg/dL (8.5-10.5); Carbon Dioxide 38 mmol/L (22-29); Chloride 97 mmol/L (98-107); Creatine Phosphokinase 29 U/L (26-192); Globulin 2.2 g/dL (1.3-4.6); Glucose 122 mg/dL (65-115); Osmolality Calculated 292 mOsm/kg (285-295); Sodium 139 mmol/L (136-145); Total Bilirubin 0.2 mg/dL (0.15-1.2); Total Protein 5.4 g/dL (6.6-8.7)
[2023-06-11 17:16] LABS: Anion Gap 8.6 (5-19); Potassium 4.6 mmol/L (3.5-5.1)
--- NOTE | 2023-06-11 17:19 | CTR_ITS ---
PROCEDURE INFORMATION: Exam: CT Pelvis Without Contrast; Skeletal Exam date and time: 06/11/2023 5:21 PM Age: 73 years old Clinical indication: Injury or trauma; Fall; Fracture of pelvis & hip; Right; Traumatic fracture; Neck of femur; Not specified; Injury date: 06/11/23; Additional info: RT hip fracture TECHNIQUE: Imaging protocol: Computed tomography of the pelvis without contrast. Exam focused on the skeleton. Radiation optimization: All CT scans at this facility use at least one of these dose optimization techniques: automated exposure control; mA and/or kV adjustment per patient size (includes targeted exams where dose is matched to clinical indication); or iterative reconstruction. REPORTING DATA: Count of CT and Cardiac NM exams in prior 12 months: This patient has received 3 known CTs and 0 known cardiac nuclear medicine studies in the 12 months prior to the current study. COMPARISON: CR XR hip RT 2-3V wo/w pel* [id number] 06/11/2023 4:48 PM RADIATION DOSE METRICS: Total DLP (mGy-cm): 255.28 FINDINGS: Bones/joints: Bones are severely osteopenic in keeping with osteoporosis. There is old osteoporotic compression fracture of L5 status post vertebroplasty. There is intertrochanteric fracture of the proximal right femur with only mild involvement of the lesser trochanter. Fracture appears to be impacted with varus angulation. Soft tissues: There is some edema/hematoma involving the distal right gluteus muscles mostly the gluteus medius muscle on the right. CT/CT pelvis wo con [id number] IMPRESSION: Intertrochanteric fracture proximal right femur.
--- NOTE | 2023-06-11 17:37 | ECG_ITS ---
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 Measurements Intervals [place] Rate: 90 P: 85 MT: 127 QRS: 91 QRSD: 86 T: 85 QT: 327 QTc: 400 Interpretive Statements SINUS RHYTHM WITH OCCASIONAL SUPRAVENTRICULAR PREMATURE COMPLEXES BORDERLINE RIGHT AXIS DEVIATION [QRS AXIS > 90] Compared to ECG 06/06/2023 03:48:19 T-wave abnormality no longer present Possible ischemia no longer present Electronically Signed On 06-11-2023 22:24:11 CDT by Varsha Hensley M.D. [id number]
[2023-06-11] MEDS: ipratropium-albuterol 3 mL Neb INHALATION (18:01)
[2023-06-11 18:09] LABS: ABG PH Result 7.35 (7.35-7.45); Arterial Blood Gas Hematocrit 26.9 % (37-47); Base Excess ABG 16.6 mmol/L (-2.0-2.0); Blood Gas Allen Test Pos; Blood Gas Operator Identificat CAK; Blood Gas Sample Site Radial, left; Blood Gas Sample Type Arterial; HCO3 ABG 44.8 mmol/L (22-26); Oxygen Device NC
[2023-06-11] MEDS: sodium chloride 0.9% 1,000 ML 125 ML IV (18:23)
[2023-06-11] MEDS: morphine 4 mg/mL SDV 1 mL 1 MG IVP (18:24)
--- NOTE | 2023-06-11 19:32 | P.HP_ITS ---
Providers/Chief Complaint Admitting Physician: Brock Christensen DO Primary Care Provider: Norman Lazo MD Chief Complaint: fall History of Present Illness Marie Hull is a 73 year old female discharged from the hospital yesterday for exacerbation of COPD. She was up walking with her walker and per her sister she went to put her plate away in the kitchen and then she had fallen. The patient does not recollect bringing her plate to the kitchen. She fell and hit the right side of her body. She is has a laceration above her right eye multiple bruises fractures of the facial bones and anterior trochanteric fracture of the right femur She will be admitted for pain control and surgical intervention Review of Systems 2 Const: Denies: fever(s) or chills Eyes: Denies: change in vision ENMT: Denies: throat pain or nasal congestion Card: Denies: chest pain or palpitations Resp: Reports: dyspnea; Denies: productive cough GI: Denies: abdominal pain, nausea, vomiting or change in stool character : Denies: dysuria Musc: Reports: extremity pain; Denies: back pain Skin/Breast: Denies: rash or lesions Neuro: Denies: headache(s) or dizziness Psych: Reports: anxiety; Denies: depression Ronen/Lymph: Denies: easy bruising or easy bleeding Medications/Allergies Home Medications Medication Instructions Recorded Confirmed Last Taken Type oxygen #1 ea 03/24/22 06/06/23 07/24/22 Rx levocetirizine 5 mg tablet 5 mg PO DAILY #30 tabs 06/15/22 06/06/23 11/22/22 Rx albuterol sulfate 90 mcg/actuation 1 puff inhalation TID PRN 09/14/22 06/06/23 Unknown Rx aerosol inhaler (Ventolin HFA) Shortness Of Breath #18 grams bimatoprost 0.01 % eye drops 1 drp ophthalmic (eye) BEDTIME 10/20/22 06/06/23 06/05/23 History (Neisha) azithromycin 250 mg tablet 250 mg PO .3 times weekly COPD #36 01/28/23 06/06/23 Unknown Rx tabs cholecalciferol (vitamin D3) 25 1,000 unit PO QAM 02/08/23 06/06/23 06/05/23 History mcg (1,000 unit) tablet (Vitamin D3) ipratropium 0.5 mg-albuterol 3 mg 3 ml inhalation TID PRN Shortness 02/08/23 06/06/23 Unknown History (2.5 mg base)/3 mL nebulization Of Breath soln furosemide 20 mg tablet (Lasix) 20 mg PO DAILY PRN edema #60 tabs 02/09/23 06/06/23 Unknown Rx potassium chloride 20 mEq 20 meq PO DAILY PRN Only with 02/09/23 06/06/23 Unknown Rx tablet,extended release Lasix #60 tabs roflumilast 500 mcg tablet 500 mcg PO DAILY #90 tabs 02/09/23 06/06/23 06/05/23 Rx budesonide 0.5 mg/2 mL suspension 0.5 mg (2 mL) inhalation BID COPD 02/25/23 06/06/23 Unknown Rx for nebulization J44.9 #60 mL formoterol fumarate 20 mcg/2 mL 2 ml inhalation BID COPD J44.9 02/25/23 06/06/23 Unknown Rx solution for nebulization #120 mL (Perforomist) calcium carbonate 600 mg calcium 600 mg PO QAM 03/03/23 06/06/23 06/05/23 History (1,500 mg) tablet (Calcium) metoprolol tartrate 25 mg tablet 12.5 mg PO BID 30 days #30 tabs 03/11/23 06/06/23 06/05/23 Rx pantoprazole 40 mg tablet,delayed 40 mg PO BIDWM 30 days #60 tabs 03/12/23 06/06/23 06/05/23 Rx release lidocaine 1.8 % topical patch 1 patch topical DAILY #30 ea 03/18/23 06/06/23 06/05/23 Rx revefenacin 175 mcg/3 mL solution 175 mcg (3 mL) inhalation DAILY 04/02/23 06/06/23 06/05/23 Rx for nebulization (Yupelri) COPD J44.9 #90 mL apixaban 2.5 mg tablet (Eliquis) 2.5 mg PO BID 06/06/23 06/06/23 06/05/23 History diltiazem HCl 60 mg tablet 60 mg PO BID 06/06/23 06/06/23 06/05/23 History alprazolam 0.5 mg tablet 0.5 mg PO QID PRN Anxiety 7 days 06/10/23 Unknown Rx #28 tabs doxycycline monohydrate 100 mg 100 mg PO BID 5 days #10 tabs 06/10/23 Unknown Rx tablet prednisone 10 mg tablet See Rx Instructions .Route 06/10/23 Unknown Rx .COMPLEX #53 tabs tramadol 50 mg tablet 25 mg PO Q12H PRN Moderate Pain 7 06/10/23 Unknown Rx days #7 tabs Allergies Allergy/AdvReac Type Severity Reaction Status Date / Time No Known Allergies Allergy Verified 06/07/23 00:13 PFSH Acute PFSH: Medical History (Updated 06/11/23 @ 19:38 by Brock Christensen DO) Acute exacerbation of chronic obstructive airways disease Acute exacerbation of chronic obstructive airways disease Acute hypercapnic respiratory failure Acute on chronic respiratory failure with hypoxia and hypercapnia Acute on chronic respiratory failure with hypoxia and hypercapnia Atrial fibrillation transient, during acute COPD exacerbation in 2019 Back pain Chest pain Chronic obstructive pulmonary emphysema Chronic respiratory failure with hypoxia and hypercapnia COPD (chronic obstructive pulmonary disease) Diastolic CHF History of echocardiogram 08/2019 EF 65%, grade I/IV diastolic dysfunction, PAP within normal limits History of PFTs 10/2019 severe airflow obstruction, FEV1/FVC of 33%, FEV1 0.57 L 29% predicted, FVC 1.76 L 71% predicted, TLC 107%, RV 163%, reduced DLCO at 25% Hyperkalemia Mass of upper lobe of left lung cavitary appearance, never biopsied due to risk of complication and non- surgical candidate, has been stable on imaging On home oxygen therapy 2-3 L BNC at baseline Osteoarthritis Osteoporosis Paroxysmal A-fib Personal history of nicotine dependence quit in 2018, but still with 2nd hand exposure Pseudomonas aeruginosa colonization Pulmonary fibrosis Pulmonary nodule left lower lobe Seasonal allergies Uses bilevel positive airway pressure (BPAP) ventilation at home trilog, via [facility] Surgical History History of kyphoplasty (2014) L1, L2, L3, L5 performed by Dr. Roman Marquez Family History Mother CAD (coronary artery disease) Social History Smoking and tobacco/nicotine status: former use of tobacco/nicotine Quit status (tobacco/nicotine): has quit using Year quit tobacco: 2019 - 1PPD x 50 Years Second hand smoke exposure: Yes Alcohol intake: never Substance/Drug Use: never Lives independently: Yes Household members: none Marital status: Current occupational status: retired Do you think of yourself as: Straight/Heterosexual Current gender identity: Female Vitals/I&O/Wt Last Vital Signs Temp 98.6 F 06/11/23 16:37 Pulse 91 06/11/23 19:16 Resp 18 06/11/23 19:16 BP 114/71 06/11/23 19:16 Pulse Ox 94 06/11/23 19:16 O2 Del Method Nasal Cannula 06/11/23 19:16 O2 Flow Rate 3 06/11/23 19:16 Physical Exam Narrative: Elderly thin frail white female appearing older than her stated age of 73. She is in moderate distress lying there and with any movement she is in severe distress. Neurologic alert and oriented to person place time and situation she is nonfocal on exam Head: Traumatic appearing with the right eye laceration as well as swelling over her right maxillary area. Nasopharyngeal: Mucous membranes moist and pink without lesions or exudates Neck is supple no JVD carotid bruits or lymphadenopathy heart: Regular S1-S2 without murmurs clicks gallops or rubs Lungs: Severely diminished breath sounds with poor expiratory phase no wheezes rales or rhonchi but very poor aeration Abdomen: Soft nontender nondistended positive bowel sounds no hepatosplenomegaly Extremities no clubbing cyanosis or edema Skin multiple bruises and skin tears on the right arm status post fall. She also has a laceration on the right eyelid that has been glued Psych normal mood and affect. Data 06/11/23 16:51 06/11/23 16:51 ABG Interpretation 1: 06/11/23 17:08 ABG pH 7.35 ABG pCO2 81.0 H* ABG pO2 62.0 L ABG HCO3 44.8 H ABG Base Excess 16.6 H A&P Assessment and plan (1) Femur fracture, right: Admit for ORIF in the morning. Hold Eliquis. Pain control. (2) Laceration of face: This was glued in the emergency room (3) Fracture of facial bone due to fall: Of right zygomatic maxillary fracture (4) COPD (chronic obstructive pulmonary disease): Nebulizers every 4 hours changed to IV Solu-Medrol since patient did not complete taper continue oxygen at 3 to 4 L. Pulmonary toilet Plan Patient's lung function is end-stage. She wishes to proceed with surgical intervention knowing she may not be able to come off the ventilator. She spoke openly with her lgkceviw-yf-lza and sister and myself and said if she is unable to come off the vent she would not want to be on the vent indefinitely. She gave her [id number] permission to remove the ventilator after such time the doctors determine that she cannot be liberated from the ventilator. Attestations Medical Necessity Statement*: Patient's care is expected to cross 2 midnights for surgical intervention of a acute fracture allowing for pain control and PT and OT to assess patient will most likely need to go to a SNF Coding Level of Care Code Acute Code for [facility] Fwd Diagnoses Femur fracture, right S72.91XA Laceration of face S01.81XA Fracture of facial bone due to fall S02.92XA; W19.XXXA COPD (chronic obstructive pulmonary disease) J44.9
[2023-06-11] MEDS: dextrose 5%-sod chloride 0.45% 1,000 ML 75 ML IV (20:41)
[2023-06-11] MEDS: famotidine 20 mg/2 mL INJ IVP (20:41)
[2023-06-11] MEDS: ALPRAZolam 0.5 mg Tablet PO (20:41)
[2023-06-11] MEDS: methylPREDNISolone sod succ 40 MG in water for injection-sterile 1 ML 12 MG IVP (20:50)
[2023-06-11] MEDS: morphine 4 mg/mL SDV 1 mL IVP (22:21)
[2023-06-12] VITALS (33 sets, daily range): BP systolic 98–141; BP diastolic 54–72; PULSE 87–141; RESP 15–25; TEMP 36.2–38.1; O2SAT 84–100
--- NOTE | 2023-06-12 | XR_ITS ---
WS: [id number] INTRAOPERATIVE TECHNIQUE: 3 Spot fluoroscopic images for intraoperative purposes. FLUOROSCOPY TIME: 70.1 seconds CLINICAL INFORMATION: RIDDHI PICS COMPARISON: None. FINDINGS: Intraoperative changes intramedullary blanca and screw fixation RIGHT hip. Hardware appears in good posi tion. IMPRESSION: Images obtained for intraoperative purposes.
[2023-06-12 05:17] LABS: Hematocrit 31.3 % (36-47)
[2023-06-12 05:39] LABS: INR 0.95 (0.8-1.2); Partial Thromboplastin Time 24.1 SECONDS (23.9-36.7)
[2023-06-12 06:00] LABS: Anion Gap 6.1 (5-19); Blood Urea Nitrogen 15 mg/dL (8-23); Calcium 9.1 mg/dL (8.5-10.5); Chloride 97 mmol/L (98-107); Glucose 199 mg/dL (65-115); Osmolality Calculated 298 mOsm/kg (285-295); Potassium 5.1 mmol/L (3.5-5.1); Sodium 141 mmol/L (136-145)
[2023-06-12 06:05] LABS: Carbon Dioxide 43 mmol/L (22-29)
[2023-06-12] MEDS: famotidine 20 mg/2 mL INJ IVP ×2 (06:33→20:42)
--- NOTE | 2023-06-12 08:05 | P.CONIM_ITS ---
Providers/Reason For Consult Consulting Physician/Specialty*: Orthopedics Reason for Consult*: Right hip pain Attending Physician: Brock Christensen DO Primary Care Provider: Norman Lazo MD History of Present Illness History of Present Illness Marie Hull is a 73 year old female who sustained a fall at her home on 06/11/2023 injuring her right hip. She was brought to the emergency room where x-rays confirmed a right hip fracture she was then admitted for more definitive management and orthopedics was consulted. Patient was evaluated in room 261 with continued right hip pain that she describes as sharp stabbing constant in nature movement makes it much worse. She has a laceration over her right eye. She denied any loss of conscious in the fall. Any movement of her right hip makes her condition much worse. Rest gives her some temporary relief. She ranks the pain as 8 out of 10 on the pain scale with movement of the right hip. Currently denies any back or neck pain. Review of Systems Const: Denies: fever(s) or chills Eyes: Denies: change in vision ENMT: Denies: throat pain or nasal congestion Card: Denies: chest pain or palpitations Resp: Reports: dyspnea; Denies: productive cough GI: Denies: abdominal pain, nausea, vomiting or change in stool character : Denies: dysuria Musc: Reports: extremity pain; Denies: back pain Skin/Breast: Denies: rash or lesions Neuro: Denies: headache(s) or dizziness Psych: Reports: anxiety; Denies: depression Ronen/Lymph: Denies: easy bruising or easy bleeding Medications/Allergies Home Medications Medication Instructions Recorded Confirmed Last Taken Type oxygen #1 ea 03/24/22 06/06/23 07/24/22 Rx albuterol sulfate 90 mcg/actuation 1 puff inhalation TID PRN 09/14/22 06/11/23 05/20/23 09:00 Rx aerosol inhaler (Ventolin HFA) Shortness Of Breath #18 grams bimatoprost 0.01 % eye drops 1 drp ophthalmic (eye) BEDTIME 10/20/22 06/11/23 06/11/23 21:00 History (Neisha) azithromycin 250 mg tablet 250 mg PO .3 times weekly COPD #36 01/28/23 06/11/23 06/11/23 12:00 Rx tabs cholecalciferol (vitamin D3) 25 1,000 unit PO QAM 02/08/23 06/11/23 06/11/23 07:00 History mcg (1,000 unit) tablet (Vitamin D3) ipratropium 0.5 mg-albuterol 3 mg 3 ml inhalation TID PRN Shortness 02/08/23 06/11/23 03/17/23 06:00 History (2.5 mg base)/3 mL nebulization Of Breath soln furosemide 20 mg tablet (Lasix) 20 mg PO DAILY PRN edema #60 tabs 02/09/23 06/11/23 06/11/23 12:00 Rx potassium chloride 20 mEq 20 meq PO DAILY PRN Only with 02/09/23 06/11/23 06/11/23 12:00 Rx tablet,extended release Lasix #60 tabs roflumilast 500 mcg tablet 500 mcg PO DAILY #90 tabs 02/09/23 06/11/23 06/11/23 12:00 Rx budesonide 0.5 mg/2 mL suspension 0.5 mg (2 mL) inhalation BID COPD 02/25/23 06/11/23 06/11/23 07:00 Rx for nebulization J44.9 #60 mL formoterol fumarate 20 mcg/2 mL 2 ml inhalation BID COPD J44.9 02/25/23 06/11/23 06/11/23 07:00 Rx solution for nebulization #120 mL (Perforomist) calcium carbonate 600 mg calcium 600 mg PO QAM 03/03/23 06/11/23 06/11/23 07:00 History (1,500 mg) tablet (Calcium) metoprolol tartrate 25 mg tablet 12.5 mg PO BID 30 days #30 tabs 03/11/23 06/11/23 06/11/23 07:00 Rx pantoprazole 40 mg tablet,delayed 40 mg PO BIDWM 30 days #60 tabs 03/12/23 06/11/23 06/11/23 07:00 Rx release lidocaine 1.8 % topical patch 1 patch topical DAILY #30 ea 03/18/23 06/11/23 06/11/23 07:00 Rx revefenacin 175 mcg/3 mL solution 175 mcg (3 mL) inhalation DAILY 04/02/23 06/11/23 06/11/23 07:00 Rx for nebulization (Narinder) COPD J44.9 #90 mL apixaban 2.5 mg tablet (Eliquis) 2.5 mg PO BID 06/06/23 06/11/23 06/11/23 07:00 History diltiazem HCl 60 mg tablet 60 mg PO BID 06/06/23 06/11/23 06/11/23 07:00 History alprazolam 0.5 mg tablet 0.5 mg PO QID PRN Anxiety 7 days 06/10/23 06/11/23 06/11/23 12:00 Rx #28 tabs doxycycline monohydrate 100 mg 100 mg PO BID 5 days #10 tabs 06/10/23 06/11/23 06/11/23 07:00 Rx tablet prednisone 10 mg tablet See Rx Instructions .Route 06/10/23 06/11/23 06/11/23 12:00 Rx .COMPLEX #53 tabs tramadol 50 mg tablet 25 mg PO Q12H PRN Moderate Pain 7 06/10/23 06/11/23 06/11/23 07:00 Rx days #7 tabs Allergies Allergy/AdvReac Type Severity Reaction Status Date / Time No Known Allergies Allergy Verified 06/07/23 00:13 Current Medications Generic Name Dose Route Start Last Admin Trade Name Freq PRN Reason Stop Dose Admin Alprazolam 0.5 mg 06/11/23 20:02 06/11/23 20:41 Alprazolam 0.5 Mg Tablet PO 0.5 mg QID PRN Administration Anxiety Bimatoprost 1 drop 06/11/23 21:00 06/11/23 20:49 Bimatoprost 0.01% Op Soln 2.5 Ml Btl EYE-BOTH 1 drop BEDTIME YOLA Administration Famotidine 20 mg 06/11/23 19:30 06/12/23 06:33 Famotidine 20 Mg/2 Ml Inj IVP 20 mg Q12H YOLA Administration Dextrose/Sodium Chloride 1,000 mls @ 75 mls/hr 06/11/23 19:30 06/11/23 20:41 Dextrose 5%-Sod Chloride 0.45% IV 75 mls/hr .[id number] YOLA Administration Methylprednisolone Sodium 1 mls @ 12 mls/hr 06/11/23 20:02 06/11/23 21:12 Succinate 40 mg/ Sterile Water IVP Infused Q12H YOLA Infusion Morphine Sulfate 4 mg 06/11/23 19:22 06/11/23 22:21 Morphine 4 Mg/Ml Sdv 1 Ml IVP 4 mg Q4H PRN Administration SEVERE PAIN PFSH Acute PFSH: Medical History (Updated 06/12/23 @ 08:09 by Ilia Santizo PA-C) Acute exacerbation of chronic obstructive airways disease Acute exacerbation of chronic obstructive airways disease Acute hypercapnic respiratory failure Acute on chronic respiratory failure with hypoxia and hypercapnia Acute on chronic respiratory failure with hypoxia and hypercapnia Atrial fibrillation transient, during acute COPD exacerbation in 2019 Back pain Chest pain Chronic obstructive pulmonary emphysema Chronic respiratory failure with hypoxia and hypercapnia COPD (chronic obstructive pulmonary disease) Diastolic CHF History of echocardiogram 08/2019 EF 65%, grade I/IV diastolic dysfunction, PAP within normal limits History of PFTs 10/2019 severe airflow obstruction, FEV1/FVC of 33%, FEV1 0.57 L 29% predicted, FVC 1.76 L 71% predicted, TLC 107%, RV 163%, reduced DLCO at 25% Hyperkalemia Mass of upper lobe of left lung cavitary appearance, never biopsied due to risk of complication and non- surgical candidate, has been stable on imaging On home oxygen therapy 2-3 L BNC at baseline Osteoarthritis Osteoporosis Paroxysmal A-fib Personal history of nicotine dependence quit in 2018, but still with 2nd hand exposure Pseudomonas aeruginosa colonization Pulmonary fibrosis Pulmonary nodule left lower lobe Seasonal allergies Uses bilevel positive airway pressure (BPAP) ventilation at home trilog, via [facility] [place] Surgical History History of kyphoplasty (2014) L1, L2, L3, L5 performed [address] Dr. Roman Marquez Family History Mother CAD (coronary artery disease) Social History Smoking and tobacco/nicotine status: former use of tobacco/nicotine Quit status (tobacco/nicotine): has quit using Year quit tobacco: 2019 - 1PPD x 50 Years Second hand smoke exposure: Yes Alcohol intake: never Substance/Drug Use: never Lives independently: Yes Household members: none Marital status: Current occupational status: retired Do you think of yourself as: Straight/Heterosexual Current gender identity: Female Vitals/I&O/Wt Last Vital Signs Temp 97.9 F 06/12/23 04:09 Pulse 95 06/12/23 05:26 Resp 15 06/12/23 04:09 BP 104/61 06/12/23 04:09 Pulse Ox 100 06/12/23 04:09 O2 Del Method Nasal Cannula 06/12/23 04:09 O2 Flow Rate 4 06/12/23 04:09 06/11/23 06/12/23 06/12/23 22:59 06:59 14:59 Intake Total 579.167 / 580.167 Output Total 1350 / 1350 Balance -1349 / -1349 579.167 / -769.833 Weight last 48 hrs Weight 104 lb 6.4 oz Physical Exam Narrative: Patient is alert somnolent but awakes and answers questions appropriately. She has palpable pain over the right hip positive logroll on the right negative on the left. Wiggles all digits are warm to the touch with good cap refill. Calves are supple no medial thigh tenderness. Dorsalis pedis and posterior tibial pulses are 1+. No palpable pain in the lumbar thoracic or cervical spine she does have a laceration over the superior orbit of the right eye. She moves both upper extremities at the shoulders elbows and wrist hands warm good cap refill. Radial pulses are palpable. HENMT: COMMON NORMALS: normocephalic HEAD & SCALP: normocephalic OTHER: Laceration over the right eye Resp: COMMON NORMALS: normal respiratory effort Cardio: COMMON NORMALS: regular rate and regular rhythm RATE: regular rate RHYTHM: regular rhythm GI: COMMON NORMALS: non-tender : COMMON NORMALS: Yes no CVA tenderness BLADDER/KIDNEY EXAM: Yes no CVA tenderness Back/Pelvis: COMMON NORMALS: no CVA tenderness Psych: COMMON NORMALS: cooperative Data 06/12/23 05:06 06/12/23 05:06 A&P Assessment and plan (1) Closed intertrochanteric fracture of right hip: Reviewed the radiographs with her discussed treatment options and involve an open reduction internal fixation of the right hip with a trochanteric femoral nail. Patient has been n.p.o. when she is medically cleared we will proceed with that fixation. Patient understands wished to proceed. Discussed this at length with Dr. Horta agrees above-stated plan. More than 50% of the time spent with the patient today involved coordination of care, counseling and discussion of conservative versus surgical treatment options. Total amount of time spent with the patient was 35minutes. (2) Laceration of face: (3) COPD (chronic obstructive pulmonary disease): Coding Level of Care Code Acute Code for [facility] Fwd Diagnoses Closed intertrochanteric fracture of right hip S72.141A Laceration of face S01.81XA COPD (chronic obstructive pulmonary disease) J44.9 Time Spent (min) 35
[2023-06-12] MEDS: budesonide 0.5 mg/2 mL Neb INHALATION ×2 (08:18→19:59)
[2023-06-12] MEDS: ipratropium-albuterol 3 mL Neb INHALATION ×5 (08:18→23:48)
[2023-06-12] MEDS: sodium chloride 0.9% 1,000 ML 30 ML IV (09:03)
--- NOTE | 2023-06-12 09:28 | W.PM.OPSUD ---
Surgery/Procedure H&P Update DATE OF PROCEDURE: June 12, 2023 DATE H&P PERFORMED: 06/12/23 H&P UPDATE INFORMATION: I have reviewed H&P completed within last 30 days, I have examined patient prior to procedure and No changes to prior documentation PREOP DIAGNOSIS: Right intertrochanteric hip fracture PLANNED PROCEDURE: Operation Date: 06/12/23 10:30 Proposed Procedures p IM Femoral Nail Insertion- Right Hip Nail(Right) - Henrik Barreto DO
[2023-06-12] MEDS: ceFAZolin 2,000 MG in sodium chloride 0.9% (plus) 50 ML 100 MG IV ×2 (09:53→18:17)
--- NOTE | 2023-06-12 10:02 | PC.PHAR ---
pt is in surgery per med surg nurse
--- NOTE | 2023-06-12 10:36 | ANES.PREANE2 ---
Pre-Anesthetic Assessment Height/Weight: Height 1.57 m Weight 47.355 kg Temp Pulse Resp BP Pulse Ox O2 Del Method O2 Flow Rate 97.4 F L 103 H 16 108/58 89 L Nasal Cannula 4 06/12/23 09:00 06/12/23 09:00 06/12/23 09:00 06/12/23 09:00 06/12/23 09:00 06/12/23 09:00 06/12/23 09:00 Preop Diagnosis: Right intertrochanteric hip fracture Operation Date: 06/12/23 10:30 Proposed Procedures p IM Femoral Nail Insertion- Right Hip Nail(Right) - Henrik Barreto, DO Was Beta Teressa taken within 24 hours: Yes Was Clonidine taken within 24 hours: N/A Last intake: Intake Last Liquid Date 06/11/23 Last Liquid Time 17:00 Last Solid Date 06/11/23 Last Solid Time 17:00 Social No alcohol and No tobacco Exam regular rate & rhythm Drowsy but arousable; limited situation awareness and communication Limited expanded pulmonary exam with diminished BS noted Airway Submandibular: within normal limits Cervical ROM: Other (limited CROM) Pulmonary Chronic Obstructive Pulmonary Disease, Cough and Shortness of Breath CV/HEM Atrial Fibrillation, Coronary Artery Disease, Congestive Heart Failure, Hypertension and Myocardial Infarction Musc/skel Osteoarthritis/DJD Neuropsych Short term memory issues as reported by [id number] Anesthetic Plan ASA status: 4 Anesthesia: General Medications/Allergies Home Medications Medication Instructions Recorded Confirmed Last Taken Type oxygen #1 ea 03/24/22 06/06/23 07/24/22 Rx albuterol sulfate 90 mcg/actuation 1 puff inhalation TID PRN 09/14/22 06/11/23 05/20/23 09:00 Rx aerosol inhaler (Ventolin HFA) Shortness Of Breath #18 grams bimatoprost 0.01 % eye drops 1 drp ophthalmic (eye) BEDTIME 10/20/22 06/11/23 06/11/23 21:00 History (Neisha) azithromycin 250 mg tablet 250 mg PO .3 times weekly COPD #36 01/28/23 06/11/23 06/11/23 12:00 Rx tabs cholecalciferol (vitamin D3) 25 1,000 unit PO QAM 02/08/23 06/11/23 06/11/23 07:00 History mcg (1,000 unit) tablet (Vitamin D3) ipratropium 0.5 mg-albuterol 3 mg 3 ml inhalation TID PRN Shortness 02/08/23 06/11/23 03/17/23 06:00 History (2.5 mg base)/3 mL nebulization Of Breath soln furosemide 20 mg tablet (Lasix) 20 mg PO DAILY PRN edema #60 tabs 02/09/23 06/11/23 06/11/23 12:00 Rx potassium chloride 20 mEq 20 meq PO DAILY PRN Only with 02/09/23 06/11/23 06/11/23 12:00 Rx tablet,extended release Lasix #60 tabs roflumilast 500 mcg tablet 500 mcg PO DAILY #90 tabs 02/09/23 06/11/23 06/11/23 12:00 Rx budesonide 0.5 mg/2 mL suspension 0.5 mg (2 mL) inhalation BID COPD 02/25/23 06/11/23 06/11/23 07:00 Rx for nebulization J44.9 #60 mL formoterol fumarate 20 mcg/2 mL 2 ml inhalation BID COPD J44.9 02/25/23 06/11/23 06/11/23 07:00 Rx solution for nebulization #120 mL (Perforomist) calcium carbonate 600 mg calcium 600 mg PO QAM 03/03/23 06/11/23 06/11/23 07:00 History (1,500 mg) tablet (Calcium) metoprolol tartrate 25 mg tablet 12.5 mg PO BID 30 days #30 tabs 03/11/23 06/11/23 06/11/23 07:00 Rx pantoprazole 40 mg tablet,delayed 40 mg PO BIDWM 30 days #60 tabs 03/12/23 06/11/23 06/11/23 07:00 Rx release lidocaine 1.8 % topical patch 1 patch topical DAILY #30 ea 03/18/23 06/11/23 06/11/23 07:00 Rx revefenacin 175 mcg/3 mL solution 175 mcg (3 mL) inhalation DAILY 04/02/23 06/11/23 06/11/23 07:00 Rx for nebulization (Yupelri) COPD J44.9 #90 mL apixaban 2.5 mg tablet (Eliquis) 2.5 mg PO BID 06/06/23 06/11/23 06/11/23 07:00 History diltiazem HCl 60 mg tablet 60 mg PO BID 06/06/23 06/11/23 06/11/23 07:00 History alprazolam 0.5 mg tablet 0.5 mg PO QID PRN Anxiety 7 days 06/10/23 06/11/23 06/11/23 12:00 Rx #28 tabs doxycycline monohydrate 100 mg 100 mg PO BID 5 days #10 tabs 06/10/23 06/11/23 06/11/23 07:00 Rx tablet prednisone 10 mg tablet See Rx Instructions .Route 06/10/23 06/11/23 06/11/23 12:00 Rx .COMPLEX #53 tabs tramadol 50 mg tablet 25 mg PO Q12H PRN Moderate Pain 7 06/10/23 06/11/23 06/11/23 07:00 Rx days #7 tabs Allergies Allergy/AdvReac Type Severity Reaction Status Date / Time No Known Allergies Allergy Verified 06/07/23 00:13 Current Medications Generic Name Dose Route Start Last Admin Trade Name Freq PRN Reason Stop Dose Admin Albuterol/Ipratropium 3 ml 06/12/23 08:00 06/12/23 08:18 Ipratropium-Albuterol 3 Ml Neb INHALATION 3 ml Q4H.RESPIRATORY YOLA Administration Alprazolam 0.5 mg 06/11/23 20:02 06/11/23 20:41 Alprazolam 0.5 Mg Tablet PO 0.5 mg QID PRN Administration Anxiety Bimatoprost 1 drop 06/11/23 21:00 06/11/23 20:49 Bimatoprost 0.01% Op Soln 2.5 Ml Btl EYE-BOTH 1 drop BEDTIME YOLA Administration Budesonide 0.5 mg 06/12/23 09:00 06/12/23 08:18 Budesonide 0.5 Mg/2 Ml Neb INHALATION 0.5 mg BID YOLA Administration Famotidine 20 mg 06/11/23 19:30 06/12/23 06:33 Famotidine 20 Mg/2 Ml Inj IVP 20 mg Q12H YOLA Administration Dextrose/Sodium Chloride 1,000 mls @ 75 mls/hr 06/11/23 19:30 06/11/23 20:41 Dextrose 5%-Sod Chloride 0.45% IV 75 mls/hr .[id number] YOLA Administration Methylprednisolone Sodium 1 mls @ 12 mls/hr 06/11/23 20:02 06/11/23 21:12 Succinate 40 mg/ Sterile Water IVP Infused Q12H YOLA Infusion Sodium Chloride 1,000 mls @ 30 mls/hr 06/12/23 09:00 06/12/23 09:03 Sodium Chloride 0.9% IV 06/13/23 08:59 30 mls/hr .Q24H YOLA Administration Morphine Sulfate 4 mg 06/11/23 19:22 06/11/23 22:21 Morphine 4 Mg/Ml Sdv 1 Ml IVP 4 mg Q4H PRN Administration SEVERE PAIN PFSH Anesthesia Medical History (Updated 06/12/23 @ 08:09 by Ilia Santizo PA-C) Acute exacerbation of chronic obstructive airways disease Acute exacerbation of chronic obstructive airways disease Acute hypercapnic respiratory failure Acute on chronic respiratory failure with hypoxia and hypercapnia Acute on chronic respiratory failure with hypoxia and hypercapnia Atrial fibrillation transient, during acute COPD exacerbation in 2019 Back pain Chest pain Chronic obstructive pulmonary emphysema Chronic respiratory failure with hypoxia and hypercapnia COPD (chronic obstructive pulmonary disease) Diastolic CHF History of echocardiogram 08/2019 EF 65%, grade I/IV diastolic dysfunction, PAP within normal limits History of PFTs 10/2019 severe airflow obstruction, FEV1/FVC of 33%, FEV1 0.57 L 29% predicted, FVC 1.76 L 71% predicted, TLC 107%, RV 163%, reduced DLCO at 25% Hyperkalemia Mass of upper lobe of left lung cavitary appearance, never biopsied due to risk of complication and non-surgical candidate, has been stable on imaging On home oxygen therapy 2-3 L BNC at baseline Osteoarthritis Osteoporosis Paroxysmal A-fib Personal history of nicotine dependence quit in 2018, but still with 2nd hand exposure Pseudomonas aeruginosa colonization Pulmonary fibrosis Pulmonary nodule left lower lobe Seasonal allergies Uses bilevel positive airway pressure (BPAP) ventilation at home trilogy, via [facility] Surgical History History of kyphoplasty (2014) L1, L2, L3, L5 performed by Dr. Roman Marquez Family History Mother CAD (coronary artery disease) Social History Smoking and tobacco/nicotine status: former use of tobacco/nicotine Quit status (tobacco/nicotine): has quit using Year quit tobacco: 2019 - 1PPD x 50 Years Second hand smoke exposure: Yes Alcohol intake: never Substance/Drug Use: never Lives independently: Yes Household members: none Marital status: Current occupational status: retired Do you think of yourself as: Straight/Heterosexual Current gender identity: Female Data Anesthesia 06/12/23 05:06 06/12/23 05:06 Short CBC 06/11/23 06/12/23 Range/Units 16:51 05:06 WBC 11.14 (3.29-11.43) 10^3/uL Hgb 9.50 L 8.80 L (11.27-16.99) g/dL Hct 33.6 L 31.3 L (36-47) % MCV 94.4 (85-98) fl Plt Count 227 (157-399) 10^3/cmm Neut % (Auto) 69.0 % Neut # (Auto) 7.69 (1.8-7.7) 10^3/uL BMP 06/11/23 06/12/23 16:51 05:06 Sodium 139 141 Potassium 4.6 5.1 Chloride 97 L 97 L Carbon Dioxide 38 H 43 H* BUN 19 15 Creatinine 0.3 L 0.3 L Glucose 122 H 199 H Calcium 9.9 9.1 Cardiac Enzymes 06/11/23 Range/Units 16:51 Creatine Kinase 29 (26-192) U/L Liver Function 06/11/23 Range/Units 16:51 Total Bilirubin 0.2 (0.15-1.2) mg/dL AST 16 (0-32) U/L ALT 20 (0-33) U/L Alkaline Phosphatase 39 (35-105) U/L Albumin 3.2 L (3.5-5.2) g/dL Coags 06/12/23 05:06 PT 13.00 INR 0.95 APTT 24.1 ABG 06/11/23 17:08 Specimen Type Arterial Sample Site Radial, left ABG pH 7.35 ABG pCO2 81.0 H* ABG pO2 62.0 L ABG HCO3 44.8 H ABG Base Excess 16.6 H O2 Delivery Device Nc O2 Liters/Min 4.0 FiO2 36.0 Cardiac Studies: Echocardiogram 10/20/22 Echocardiogram Limited Views 02/09/23 Echocardiogram Ultrasound 08/21/19 Cardiac Event Monitor 11/18/22
--- NOTE | 2023-06-12 10:57 | ANE.PACU2 ---
Inpatient post-anesthesia follow up: Vital signs: Temperature 97.4 F Pulse Rate 103 Respiratory Rate 16 Blood Pressure 108/58 Pulse Oximetry 89 Oxygen Delivery Me thod Nasal Cannula Oxygen Flow Rate 4 Fraction of Inspir ed Oxygen Hydration adequate: Yes Nausea and vomiting: No Pain level: 1 Mental status: Baseline
--- NOTE | 2023-06-12 11:06 | P.OP_ITS ---
Operative Report Date of procedure: June 12, 2023 Pre-op diagnosis: Right intertrochanteric hip fracture Post-op diagnosis: same Procedure done: Right hip nail Surgeon: Henrik Barreto DO Substance Abuse Nurse: Ilia Santizo Substance Abuse Nurse: The surgical specialist, Ilia Santizo, KATARINA was needed for his expertise with fracture care. He was important and necessary throughout the procedure to complete in a safe and timely manner. He assisted with patient positioning prepping and draping tissue retraction suctioning of the operative field protection of the critical structures and tissue closure Estimated blood loss (mL): 25 Procedure: Right hip nail Patient was brought to the operative suite. After going anesthesia patient was placed on the [place] table. All areas impingement were well-padded. Patient was then positioned with the leg in traction and some internal rotation. C-arm was brought in to ensure that the fracture was adequately reduced. Once this was confirmed then patient was prepped and draped in the normal sterile fashion. Skin incision is made proximal to the greater trochanter. The starting pin was inserted to the tip of the greater trochanter. The drill was then used to open the canal. And then the gamma nail was placed down the Canal. A 6 wire was then placed for the lag screw. This wire was placed in the center center position. Once the this was confirmed on x-ray the pathway for the screw was drilled this was 90 mm and a 90 mm lag screw was placed. This was locked into place proximally. Next tension was brought to placing the distal locking screw. Skin incision is made at the guide tubes were used to get down to the bone on the lateral femur. And then the screw was drilled. And then a 35 mm screw was placed distally. AP and lateral fluoroscopy ensured that the hardware and fracture were in good position. Wounds were irrigated and closed with Vicryl and nash. Sterile dressings were applied patient transferred to the PACU in stable condition.
--- NOTE | 2023-06-12 11:20 | SUR.PHASEI ---
1115 Dr Martinez aware of low 02 levels. orders to inform floor nurse to not increase 02 to above 2 liters.
--- NOTE | 2023-06-12 11:38 | SUR.PHASEII ---
1130 Dr. Martinez was notified about patient's O2 saturations being 84% on 2L NC, she was awake and having conversations appropriately. He stated that patient can transfer to floor and to order BiPap. Receiving nurse and RT notified, patient was transferred to the floor, RT, receiving nurse, and Hospitalist at bedside. Family aware and at bedside as well.
--- NOTE | 2023-06-12 12:23 | PM.PN ---
Subjective Subjective: cyndie Hull is a 73 year old female discharged from the hospital yesterday for exacerbation of COPD.? She was up walking with her walker and per her sister she went to put her plate away in the kitchen and then she had fallen.? The patient does not recollect bringing her plate to the kitchen.? She fell and hit the right side of her body.? She is has a laceration above her right eye multiple bruises fractures of the facial bones and anterior trochanteric fracture of the right femur She will be admitted for pain control and surgical intervention 06/12/2023: Status post right hip nail. Patient hypoxic postoperatively. She normally uses 3 L nasal cannula she was in the low 80s on 2 L. She was placed on BiPAP with 32% FiO2. We will maintain her oxygen sat 88 or greater. Expect her to improve as she wakes up Vitals/I&O/Wt Last Vital Signs Temp 98.2 F 06/12/23 11:45 Pulse 121 H 06/12/23 12:18 Resp 18 06/12/23 12:18 BP 115/68 06/12/23 11:45 Pulse Ox 89 L 06/12/23 12:18 O2 Del Method BiPAP 06/12/23 12:18 O2 Flow Rate 2 06/12/23 11:27 FiO2 32 06/12/23 12:18 06/11/23 06/12/23 06/12/23 22:59 06:59 14:59 Intake Total 579.167 / 580.167 150 / 150 Output Total 1350 / 1350 525 / 525 Balance -1349 / -1349 579.167 / -769.833 -375 / -375 Weight last 48 hrs Weight 47.355 kg Physical Exam Narrative: Elderly thin frail white female appearing older than her stated age of 73. She is relatively sedated postoperatively still Head: Traumatic appearing with the right eye laceration as well as swelling over her right maxillary area. Lungs: Severely diminished breath sounds with poor expiratory phase no wheezes rales or rhonchi but very poor aeration Abdomen: Soft nontender nondistended positive bowel sounds no hepatosplenomegaly Extremities no clubbing cyanosis or edema Skin multiple bruises and skin tears on the right arm status post fall. She also has a laceration on the right eyelid that has been glued Data 06/12/23 05:06 06/12/23 05:06 A&P Assessment and plan (1) Femur fracture, right: Status post nail to right hip. Pain control PT as per surgery (2) Laceration of face: This was glued in the emergency room (3) Fracture of facial bone due to fall: Of right zygomatic maxillary fracture (4) COPD (chronic obstructive pulmonary disease): Nebulizers every 4 hours changed to IV Solu-Medrol since patient did not complete taper continue oxygen at 3 to 4 L. Pulmonary toilet Plan 06/11/2023:Patient's lung function is end-stage. She wishes to proceed with surgical intervention knowing she may not be able to come off the ventilator. She spoke openly with her [id number]-gh-qle and sister and myself and said if she is unable to come off the vent she would not want to be on the vent indefinitely. She gave her [id number] permission to remove the ventilator after such time the doctors determine that she cannot be liberated from the ventilator. Attestations Medical Necessity Statement*: Patient's care is expected to cross 2 midnights for surgical intervention of a acute fracture allowing for pain control and PT and OT to assess patient will most likely need to go to a SNF Coding Level of Care Code Acute Code for [facility] Diagnoses Femur fracture, right S72.91XA Laceration of face S01.81XA Fracture of facial bone due to fall S02.92XA; W19.XXXA COPD (chronic obstructive pulmonary disease) J44.9
[2023-06-12] MEDS: metoprolol tartrate 25 mg Tablet 12.5 MG PO ×2 (14:53→22:40)
[2023-06-12] MEDS: HYDROcodone-acetaminophen 5-325 mg Tablet PO (15:53)
--- NOTE | 2023-06-12 16:26 | PC.RESP ---
pt tolerating bipap well
[2023-06-12 17:16] LABS: Glucose Point of Care 137 mg/dL (70-110)
[2023-06-12] MEDS: dextrose 5%-sod chloride 0.45% 1,000 ML 75 ML IV (17:26)
[2023-06-12] MEDS: ketorolac 30 mg/mL INJ IVP (18:16)
[2023-06-12] MEDS: docusate sodium 100 mg Capsule PO (18:16)
[2023-06-12] MEDS: doxycycline 100 mg Tablet PO (18:17)
[2023-06-12] MEDS: methylPREDNISolone sod succ 40 MG in water for injection-sterile 1 ML 12 MG IVP (20:42)
[2023-06-13] VITALS (17 sets, daily range): BP systolic 111–169; BP diastolic 54–72; PULSE 88–119; RESP 16–22; TEMP 36.4–36.8; O2SAT 92–100
[2023-06-13] MEDS: ceFAZolin 2,000 MG in sodium chloride 0.9% (plus) 50 ML 100 MG IV (01:34)
[2023-06-13] MEDS: ipratropium-albuterol 3 mL Neb INHALATION ×6 (03:44→23:41)
[2023-06-13] MEDS: enoxaparin 30 mg/0.3 mL Syringe SUBCUT (05:07)
[2023-06-13] MEDS: HYDROcodone-acetaminophen 5-325 mg Tablet PO ×3 (05:58→21:27)
[2023-06-13] MEDS: ketorolac 30 mg/mL INJ IVP (05:58)
[2023-06-13] MEDS: budesonide 0.5 mg/2 mL Neb INHALATION ×2 (07:44→20:26)
[2023-06-13] MEDS: docusate sodium 100 mg Capsule PO ×2 (08:21→17:08)
[2023-06-13] MEDS: famotidine 20 mg/2 mL INJ IVP ×2 (08:21→21:26)
[2023-06-13] MEDS: methylPREDNISolone sod succ 40 MG in water for injection-sterile 1 ML 12 MG IVP (08:21)
[2023-06-13] MEDS: doxycycline 100 mg Tablet PO ×2 (08:21→17:08)
[2023-06-13] MEDS: dextrose 5%-sod chloride 0.45% 1,000 ML 75 ML IV ×2 (08:23→21:34)
[2023-06-13] MEDS: metoprolol tartrate 25 mg Tablet 12.5 MG PO ×2 (08:30→17:08)
--- NOTE | 2023-06-13 09:06 | P.PN_ITS ---
Subjective Subjective: POD 1 Patient resting comfortably. Family is present. Patient denies shortness of breath or chest pain. Feels lightheaded and dizzy when he attempts to get up. Vitals/I&O/Wt Last Vital Signs Temp 97.6 F 06/13/23 08:00 Pulse 116 H 06/13/23 08:00 Resp 18 06/13/23 08:00 BP 127/57 06/13/23 08:00 Pulse Ox 92 06/13/23 08:00 O2 Del Method Nasal Cannula 06/13/23 08:00 O2 Flow Rate 3 06/13/23 07:44 FiO2 32 06/12/23 23:51 06/12/23 06/13/23 06/13/23 22:59 06:59 14:59 Intake Total 600 / 1750 1050 / 2800 480 / 480 Output Total 550 / 1075 Balance 600 / 1225 500 / 1725 480 / 480 Weight last 48 hrs Weight 104 lb 6.4 oz Physical Exam Narrative: Patient is alert and orient x3 has good general appearance normal normal affect. Right hip incision is clean and dry. There is no signs of erythema or drainage no signs of infection. Good motor strength throughout both lower extremities. Fires in all motor groups. Skin is clear warm, feet are warm with good cap refill in all digits. Normal sensation to light touch. Calves are supple, no medial thigh tenderness, negative Homans' sign. No palpable edema peripherally. Data 06/12/23 05:06 06/12/23 05:06 A&P Assessment and plan (1) Closed intertrochanteric fracture of right hip: Physical therapy to work with mobilization. If the patient continues to be sym ptomatic with tachycardic lightheaded and dizziness then would recommend transfusing 1 unit of packed red blood cells. We will defer to the medical team at this time. Dressing change with Silverlon applied. Discontinue Stanley catheter. We will have director social consulted for placement. Continue incentive spirometer for pulmonary toilet. Continue foot pumps for DVT prophylaxis. Will defer to hospitalist for anticoagulation treatment with Eliquis. (2) Acute blood loss anemia: Attestations Medical Necessity Statement*: Defer to medical team Coding Level of Care Code Acute Code for [facility] Diagnoses Closed intertrochanteric fracture of right hip S72.141A Acute blood loss anemia D62
--- NOTE | 2023-06-13 12:06 | P.PN_ITS ---
Subjective Subjective: Marie Hull is a 73 year old female discharged from the hospital yesterday, 06/10/2023, for exacerbation of COPD.? It was recommended that she go to residential facility. She declined. The following day, she was up walking with her walker and per her sister she went to put her plate away in the kitchen and then she had fallen.? The patient does not recollect bringing her plate to the [facility].? She fell and hit the right side of her body.? She is has a laceration above her right eye multiple bruises, fractures of the facial bones, right wrist sprain and trochanteric fracture of the right femur. She will be admitted for pain control and surgical intervention 06/12/2023: Status post right hip nail. Patient hypoxic postoperatively. She normally uses 3 L nasal cannula she was in the low 80s on 2 L. She was placed on BiPAP with 32% FiO2. We will maintain her oxygen sat 88 or greater. Expect her to improve as she wakes up. 06/13/2023. Patient is doing well on her 3 L nasal cannula. She does desat with activity but this is her normal. She does use BiPAP at night when she is at home. She wants to go home but she is willing to consider SNF at this time. We had a discussion of hospice services. She is open to this recommendation. Patient does not want full resuscitation if a catastrophic event occurs leaving her without pulse or without breathing. Vitals/I&O/Wt Last Vital Signs Temp 97.6 F 06/13/23 08:00 Pulse 116 H 06/13/23 08:00 Resp 18 06/13/23 08:00 BP 127/57 06/13/23 08:00 Pulse Ox 92 06/13/23 08:00 O2 Del Method Nasal Cannula 06/13/23 08:00 O2 Flow Rate 3 06/13/23 07:44 FiO2 32 06/12/23 23:51 06/12/23 06/13/23 06/13/23 22:59 06:59 14:59 Intake Total 600 / 1750 1050 / 2800 480 / 480 Output Total 550 / 1075 Balance 600 / 1225 500 / 1725 480 / 480 Weight last 48 hrs Weight 47.355 kg Physical Exam Narrative: Elderly thin frail white female appearing chronically ill with increased respirations but at her baseline. She appears much older than her stated age of 73. Head: Traumatic appearing with the right eye laceration as well as swelling over her right maxillary area. Lungs: Severely diminished breath sounds with poor expiratory phase no wheezes rales or rhonchi but very poor aeration Abdomen: Soft nontender nondistended positive bowel sounds no hepatosplenomegaly Extremities no clubbing cyanosis or edema Skin multiple bruises and skin tears on the right arm status post fall. She also has a laceration on the right eyelid that has been glued Data 06/12/23 05:06 06/12/23 05:06 A&P Assessment and plan (1) Femur fracture, right: Status post nail to right hip. Pain control PT as per surgery DVT prophylaxis with low molecular weight heparin for 30 days or aspirin 81 mg twice daily. We will follow up on hemoglobin today. (2) Laceration of face: This was glued in the emergency room (3) Fracture of facial bone due to fall: Of right zygomatic maxillary fracture (4) COPD (chronic obstructive pulmonary disease): Nebulizers every 4 hours IV Solu-Medrol since patient did not complete taper continue oxygen 3 liters nasal cannula is her baseline with BiPAP at night. Pulmonary toilet with incentive spirometer. (5) Right wrist pain: Most likely sprain. Palpation today did not reveal any acute pain. The x-ray reports a very small osseous structure seen anterior to one of the carpal bones on lateral view. I called Dr. Barreto to review tomorrow. May need splints. Plan Discussion on 06/11/2023 the night patient was hospitalized. Patient's lung function is end-stage. She wishes to proceed with surgical intervention knowing she may not be able to come off the ventilator. She spoke openly with her sjusasdo-xr-ehn and sister and myself and said if she is unable to come off the vent she would not want to be on the vent indefinitely. She gave her [id number] permission to remove the ventilator after such time the doctors determine that she cannot be liberated from the ventilator. 06/13/2023: We again spoke of CODE STATUS for catastrophic event. Once explanation of the procedure of CPR was explained she said she would not want to proceed with full resuscitation thus will change to DNR/I. I also recommended an out of house DNR form for the ambulance snf and in the future at home. Patient is agreeable to this. Spoke with [id number] privately. Patient was recommended to go to a SNF after this most recent hospitalization with discharge on 06/10/2023. She fell the following day and fractured her right leg. I do think she would benefit from short-term residential home placement. After that I recommended that she would be an excellent candidate for hospice and more than likely live longer than expected without hospice. Patient although side seems to start to understand and I think after further discussions will be more open. Attestations Medical Necessity Statement*: Patient's care is expected to cross 2 midnights for surgical intervention of a acute fracture allowing for pain control and PT and OT to assess patient will most likely need to go to a SNF Coding Level of Care Code Acute Code for [facility] Diagnoses Femur fracture, right S72.91XA Laceration of face S01.81XA Fracture of facial bone due to fall S02.92XA; W19.XXXA COPD (chronic obstructive pulmonary disease) J44.9 Right wrist pain M25.531
[2023-06-13 12:55] LABS: Hematocrit 25.2 % (36-47)
[2023-06-13 13:20] LABS: Blood Urea Nitrogen 16 mg/dL (8-23); Calcium 9.2 mg/dL (8.5-10.5); Carbon Dioxide 29 mmol/L (22-29); Chloride 97 mmol/L (98-107); Glucose 182 mg/dL (65-115); Osmolality Calculated 286 mOsm/kg (285-295); Sodium 135 mmol/L (136-145)
[2023-06-13 13:32] LABS: Anion Gap 13.1 (5-19); Potassium 4.1 mmol/L (3.5-5.1)
[2023-06-13] MEDS: methylPREDNISolone sod succ 40 mg/mL INJ IVP (21:36)
[2023-06-14] VITALS (22 sets, daily range): BP systolic 101–135; BP diastolic 50–71; PULSE 65–123; RESP 9–22; TEMP 36.4–36.8; O2SAT 89–99
[2023-06-14] MEDS: ipratropium-albuterol 3 mL Neb INHALATION ×6 (04:25→23:59)
[2023-06-14] MEDS: HYDROcodone-acetaminophen 5-325 mg Tablet PO (05:30)
[2023-06-14] MEDS: ketorolac 30 mg/mL INJ IVP (05:30)
[2023-06-14] MEDS: enoxaparin 30 mg/0.3 mL Syringe SUBCUT (05:31)
[2023-06-14 05:58] LABS: Hematocrit 21.1 % (36-47); Lymphocytes # 0.4 10^3/uL (0.8-4.8); Lymphocytes % 4.4 %; Mean Corpuscular HGB Conc 29.4 g/dL (30-55); Mean Corpuscular Hemoglobin 26.4 pg (27-33); Mean Corpuscular Volume 89.8 fl (85-98); Mean Platelet Volume 9.9 fL (7.4-10.4); Monocytes # 0.8 10^3/uL (0.2-0.9); Monocytes % 9.7 %; Neutrophils # 6.92 10^3/uL (1.8-7.7); Neutrophils % 85.3 %; Nucleated Red Blood Cells % 0 %; Platelet Count 196 10^3/cmm (157-399); Red Blood Count 2.35 10^6/uL (3.85-5.65); Red Cell Distribution Width 15.2 % (12.1-15.1); White Blood Count 8.12 10^3/uL (3.29-11.43)
[2023-06-14 06:13] LABS: Anion Gap 10.3 (5-19); Blood Urea Nitrogen 10 mg/dL (8-23); Carbon Dioxide 36 mmol/L (22-29); Chloride 101 mmol/L (98-107); Glucose 141 mg/dL (65-115); Osmolality Calculated 297 mOsm/kg (285-295); Potassium 4.3 mmol/L (3.5-5.1); Sodium 143 mmol/L (136-145)
[2023-06-14] MEDS: ondansetron 2 mg/ML SDV 2 mL 4 MG IVP (07:42)
[2023-06-14] MEDS: famotidine 20 mg/2 mL INJ IVP (07:59)
[2023-06-14] MEDS: ALPRAZolam 0.5 mg Tablet PO (08:16)
[2023-06-14] MEDS: methylPREDNISolone sod succ 40 mg/mL INJ IVP (08:17)
[2023-06-14] MEDS: doxycycline 100 mg Tablet PO ×2 (08:17→17:22)
[2023-06-14] MEDS: metoprolol tartrate 25 mg Tablet 12.5 MG PO ×2 (08:17→17:22)
[2023-06-14] MEDS: budesonide 0.5 mg/2 mL Neb INHALATION ×2 (08:25→21:05)
[2023-06-14] MEDS: cyanocobalamin 1,000 mcg/mL SDV 1000 MCG IM (09:29)
[2023-06-14] MEDS: dilTIAZem 60 mg Tablet PO ×2 (09:29→17:22)
[2023-06-14 09:55] LABS: Vitamin B12 307 pg/mL (232-1245)
[2023-06-14] MEDS: FUROsemide 10 mg/mL SDV 2mL 20 MG IVP (11:06)
--- NOTE | 2023-06-14 14:42 | PC.SOCIAL ---
PG 2 IMM Explained to pt Pg 2 IMM. No questions voiced. Provided pt a copy. Initialed, dated, & timed a copy & placed in chart.
--- NOTE | 2023-06-14 15:34 | P.PN_ITS ---
Subjective Subjective: Hospital course appreciated. Today morning seen sitting comfortably in bed. Denies nausea, vomiting, headache. States pain is well controlled. Awaiting for physical therapy to be done today. Denies any dizziness. Blood work appreciated for hemoglobin down to 6.2, stable white count without leukocytosis, CMP showing stable electrolytes and a normal creatinine of 0.3 Vitals/I&O/Wt Last Vital Signs Temp 97.8 F 06/14/23 11:33 Pulse 83 06/14/23 14:00 Resp 18 06/14/23 12:00 BP 102/50 06/14/23 11:33 Pulse Ox 90 06/14/23 12:00 O2 Del Method Nasal Cannula 06/14/23 12:00 O2 Flow Rate 3 06/14/23 12:00 FiO2 32 06/14/23 04:27 06/14/23 06/14/23 06/14/23 06:59 14:59 22:59 Intake Total 1590.00 / 1590.00 Balance 1590.00 / 1590.00 Physical Exam Narrative: Elderly thin frail white female appearing chronically ill with increased respirations but at her baseline. She appears much older than her stated age of 73. Head: Traumatic appearing with the right eye laceration as well as swelling over her right maxillary area. Lungs: Severely diminished breath sounds with poor expiratory phase no wheezes rales or rhonchi but very poor aeration Abdomen: Soft nontender nondistended positive bowel sounds no hepatosplenomegaly Extremities no clubbing cyanosis or edema Skin multiple bruises and skin tears on the right arm status post fall. She also has a laceration on the right eyelid that has been glued Data 06/14/23 05:42 06/14/23 05:42 A&P Assessment and plan (1) Femur fracture, right: Status post nail to right hip. Day 2. Pain control with [place] 5 mg 1 tablet every 6 hour as needed PT as per surgery Continue with aspirin 81 mg daily. Lovenox on hold given postoperative anemia. (2) Laceration of face: This was glued in the emergency room (3) Fracture of facial bone due to fall: Of right zygomatic maxillary fracture. Stable. 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 Baseline at 3 L of oxygen supplementation with BiPAP nightly. Aggressive pulmonary toilet. Continue with Pulmicort twice daily, DuoNebs every 4 hours. Wean down Solu-Medrol to 40 mg daily. Recent discharge from hospital for COPD exacerbation. (5) Right wrist pain: Most likely sprain. Palpation today did not reveal any acute pain. The x-ray reports a very small osseous structure seen anterior to one of the carpal bones on lateral view. I called Dr. Barreto to review tomorrow. May need splints. (6) Postoperative anemia due to acute blood loss: Hemoglobin down to 6.2. Target hemoglobin more than 7. Most likely postoperative. Transfuse 1 unit of PRBC. Appreciate recent TIBC, vitamin B12 and folate levels. Monitor hemoglobin daily. Protonix twice daily. Stool for occult blood to be checked. (7) Paroxysmal A-fib: With mild rapid ventricular response. Continue with home dose of metoprolol 12.5 mg twice daily. Restart home dose of Cardizem 60 mg twice daily. Eliquis on hold given postoperative anemia. Last echocardiogram showed a normal EF with grade 1 diastolic dysfunction. IV Lasix 20 mg one-time PRBC transfusion. Plan CODE STATUS: Confirmed with the patient. She continues to remain DNR/DNI. Regular diet Protonix for PUD prophylaxis Discharge plan: Plan to discharge to SNF for further rehabitation given second admission in a short while. Patient is agreeable. Case management alerted. Attestations Medical Necessity Statement*: Requires further hospitalization for management of postoperative care in setting of ORIF, postoperative anemia by safe discharge planning to SNF. Diagnoses Femur fracture, right S72.91XA Laceration of face S01.81XA Fracture of facial bone due to fall S02.92XA; W19.XXXA COPD (chronic obstructive pulmonary disease) J44.9 Right wrist pain M25.531 Postoperative anemia due to acute blood loss D62 Paroxysmal A-fib I48.0
[2023-06-14] MEDS: pantoprazole DR 40 mg Tablet PO (17:23)
[2023-06-14] MEDS: docusate sodium 100 mg Capsule PO (17:23)
[2023-06-14] MEDS: HYDROcodone-acetaminophen 5-325 mg Tablet 1 TAB PO (22:51)
[2023-06-15] VITALS (16 sets, daily range): BP systolic 104–113; BP diastolic 50–60; PULSE 56–111; RESP 14–19; TEMP 36.4–37.1; O2SAT 91–100
[2023-06-15] MEDS: ipratropium-albuterol 3 mL Neb INHALATION ×6 (04:59→23:58)
[2023-06-15 06:13] LABS: Basophils % 0.1 %; Hematocrit 28.5 % (36-47); Lymphocytes # 1.2 10^3/uL (0.8-4.8); Lymphocytes % 13.3 %; Mean Corpuscular HGB Conc 29.1 g/dL (30-55); Mean Corpuscular Hemoglobin 27.4 pg (27-33); Mean Corpuscular Volume 94.1 fl (85-98); Mean Platelet Volume 9.9 fL (7.4-10.4); Monocytes # 1.6 10^3/uL (0.2-0.9); Monocytes % 18.3 %; Neutrophils # 5.84 10^3/uL (1.8-7.7); Neutrophils % 67.4 %; Nucleated Red Blood Cells % 0.2 %; Platelet Count 196 10^3/cmm (157-399); Red Blood Count 3.03 10^6/uL (3.85-5.65); Red Cell Distribution Width 14.9 % (12.1-15.1); White Blood Count 8.67 10^3/uL (3.29-11.43)
[2023-06-15 07:18] LABS: Alanine Aminotransferase 11 U/L (0-33); Albumin Level 2.8 g/dL (3.5-5.2); Alkaline Phosphatase 37 U/L (35-105); Anion Gap 9.6 (5-19); Aspartate Amino Transferase 13 U/L (0-32); Blood Urea Nitrogen 18 mg/dL (8-23); Calcium 9.3 mg/dL (8.5-10.5); Carbon Dioxide 36 mmol/L (22-29); Chloride 100 mmol/L (98-107); Globulin 2.3 g/dL (1.3-4.6); Glucose 107 mg/dL (65-115); Osmolality Calculated 294 mOsm/kg (285-295); Potassium 4.6 mmol/L (3.5-5.1); Sodium 141 mmol/L (136-145); Total Bilirubin 0.2 mg/dL (0.15-1.2); Total Protein 5.1 g/dL (6.6-8.7)
[2023-06-15] MEDS: budesonide 0.5 mg/2 mL Neb INHALATION ×2 (07:58→19:36)
[2023-06-15] MEDS: aspirin 81 mg EC Tablet PO (09:14)
[2023-06-15] MEDS: cyanocobalamin 1,000 mcg Tablet 500 MCG PO (09:15)
[2023-06-15] MEDS: HYDROcodone-acetaminophen 5-325 mg Tablet 1 TAB PO ×2 (09:16→17:35)
[2023-06-15] MEDS: ALPRAZolam 0.5 mg Tablet PO (09:16)
[2023-06-15] MEDS: docusate sodium 100 mg Capsule PO ×2 (09:16→17:36)
[2023-06-15] MEDS: metoprolol tartrate 25 mg Tablet 12.5 MG PO ×2 (09:16→17:36)
[2023-06-15] MEDS: dilTIAZem 60 mg Tablet PO ×2 (09:17→17:35)
[2023-06-15] MEDS: doxycycline 100 mg Tablet PO ×2 (09:17→17:35)
[2023-06-15] MEDS: pantoprazole DR 40 mg Tablet PO ×2 (09:17→17:36)
[2023-06-15] MEDS: methylPREDNISolone sod succ 40 mg/mL INJ IVP (09:18)
--- NOTE | 2023-06-15 14:52 | P.PN_ITS ---
Subjective Subjective: No acute events overnight. Patient has remained hemodynamically stable and afebrile. States pain is well controlled. Denies any nausea, vomiting, headache. Blood work today shows hemoglobin up to 8.3 after monitor blood transfusion yesterday, stable platelet and CMP showing stable creatinine and electrolytes. Patient working with physical therapy. Saturating well on baseline oxygen supplementation. Vitals/I&O/Wt Last Vital Signs Temp 98.3 F 06/15/23 10:56 Pulse 67 06/15/23 12:15 Resp 14 06/15/23 12:00 BP 109/50 06/15/23 10:56 Pulse Ox 91 06/15/23 12:00 O2 Del Method Nasal Cannula 06/15/23 12:00 O2 Flow Rate 3 06/14/23 21:06 FiO2 32 06/15/23 07:58 06/14/23 06/15/23 06/15/23 22:59 06:59 14:59 Intake Total 120 / 1710.00 Output Total 450 / 450 Balance -330 / 1260.00 Physical Exam Narrative: Elderly thin frail white female appearing chronically ill with increased respirations but at her baseline. She appears much older than her stated age of 73. Head: Traumatic appearing with the right eye laceration as well as swelling over her right maxillary area. Lungs: Severely diminished breath sounds with poor expiratory phase no wheezes rales or rhonchi but very poor aeration Abdomen: Soft nontender nondistended positive bowel sounds no hepatosplenomegaly Extremities no clubbing cyanosis or edema Skin multiple bruises and skin tears on the right arm status post fall. She also has a laceration on the right eyelid that has been glued Data 06/15/23 05:42 06/15/23 05:42 A&P Assessment and plan (1) Femur fracture, right: Status post nail to right hip. Day 3. Pain control with [place] 5 mg 1 tablet every 6 hour as needed Continue with physical therapy. Continue with aspirin 81 mg daily. Lovenox on hold given postoperative anemia. Out of bed to chair. (2) Laceration of face: This was glued in the emergency room (3) Fracture of facial bone due to fall: Of right zygomatic maxillary fracture. Stable. 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 Baseline at 3 L of oxygen supplementation with BiPAP nightly. Aggressive pulmonary toilet. Continue with Pulmicort twice daily, DuoNebs every 4 hours. Continue with IV Solu-Medrol 40 mg daily. We will further wean down and switch to oral within next 24 to 48 hours. Recent discharge from hospital for COPD exacerbation. (5) Right wrist pain: Plan for wrist splints. (6) Postoperative anemia due to acute blood loss: Post 1 unit of blood transfusion. Hemoglobin appropriately up to more than 8. Monitor hemoglobin daily. Target hemoglobin more than 7. Appreciate recent TIBC, vitamin B12 and folate levels. Monitor hemoglobin daily. Protonix twice daily. Stool for occult blood to be checked. (7) Paroxysmal A-fib: Rapid ventricular response has resolved. With mild rapid ventricular response. Continue with home dose of metoprolol 12.5 mg twice daily, Cardizem 60 mg twice daily. Eliquis on hold given postoperative anemia. Plan to restart Eliquis within next 3 days. Last echocardiogram showed a normal EF with grade 1 diastolic dysfunction. IV Lasix 20 mg one-time PRBC transfusion. Plan CODE STATUS: Confirmed with the patient. She continues to remain DNR/DNI. Regular diet Protonix for PUD prophylaxis Discharge plan: Plan to discharge to SNF for further rehabitation given second admission in a short while. Patient is agreeable. Patient cannot go to SNF as she is on NIV in setting of severe COPD. Can plan to transition discharge to acute rehab versus swing bed. Patient is agreeable. Case management alerted. Attestations Medical Necessity Statement*: Requires further hospitalization for postoperative care in a patient who is post-ORIF for hip fracture in setting of baseline end-stage COPD while safe discharge planning is sought Diagnoses Femur fracture, right S72.91XA Laceration of face S01.81XA Fracture of facial bone due to fall S02.92XA; W19.XXXA COPD (chronic obstructive pulmonary disease) J44.9 Right wrist pain M25.531 Postoperative anemia due to acute blood loss D62 Paroxysmal A-fib I48.0
[2023-06-16] VITALS (20 sets, daily range): BP systolic 103–161; BP diastolic 50–70; PULSE 66–100; RESP 14–18; TEMP 36.7–37; O2SAT 90–96
[2023-06-16] MEDS: HYDROcodone-acetaminophen 5-325 mg Tablet 1 TAB PO ×3 (00:59→17:03)
[2023-06-16] MEDS: ipratropium-albuterol 3 mL Neb INHALATION ×6 (04:28→23:47)
[2023-06-16 06:26] LABS: Lymphocytes # 0.7 10^3/uL (0.8-4.8); Mean Corpuscular Hemoglobin 28.8 pg (27-33); Mean Platelet Volume 10.8 fL (7.4-10.4); Monocytes # 1.1 10^3/uL (0.2-0.9); Monocytes % 16.1 %; Neutrophils # 4.95 10^3/uL (1.8-7.7); Neutrophils % 73.2 %; Nucleated Red Blood Cells % 0 %; Platelet Count 202 10^3/cmm (157-399); Red Blood Count 3.02 10^6/uL (3.85-5.65); White Blood Count 6.77 10^3/uL (3.29-11.43)
[2023-06-16] MEDS: budesonide 0.5 mg/2 mL Neb INHALATION ×2 (07:22→21:00)
[2023-06-16] MEDS: cyanocobalamin 1,000 mcg Tablet 500 MCG PO (08:22)
[2023-06-16] MEDS: methylPREDNISolone sod succ 40 mg/mL INJ IVP (08:22)
[2023-06-16] MEDS: pantoprazole DR 40 mg Tablet PO ×2 (08:22→17:03)
[2023-06-16] MEDS: metoprolol tartrate 25 mg Tablet 12.5 MG PO ×2 (08:22→17:03)
[2023-06-16] MEDS: dilTIAZem 60 mg Tablet PO ×2 (08:22→20:42)
[2023-06-16] MEDS: doxycycline 100 mg Tablet PO ×2 (08:22→17:03)
[2023-06-16] MEDS: docusate sodium 100 mg Capsule PO ×2 (08:22→17:03)
[2023-06-16] MEDS: aspirin 81 mg EC Tablet PO (08:23)
--- NOTE | 2023-06-16 12:04 | ECG_ITS ---
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 Measurements Intervals [place] Rate: 144 P: 0 WA: 0 QRS: 114 QRSD: 92 T: 49 QT: 258 QTc: 400 Interpretive Statements ATRIAL FLUTTER WITH RAPID VENTRICULAR RESPONSE RIGHT AXIS DEVIATION [QRS AXIS > 100] Compared to ECG 06/11/2023 17:37:34 Sinus rhythm no longer present Electronically Signed On 06-16-2023 12:21:54 CDT by Nicholas Vega M.D. [id number]
--- NOTE | 2023-06-16 13:41 | PC.SOCIAL ---
IMM Updated Updated pt & daughter on IMM. No questions voiced. Provided pt a copy. Initialed, dated, & timed copy in chart.
[2023-06-16] MEDS: dilTIAZem 30 mg Tablet PO (14:12)
--- NOTE | 2023-06-16 14:42 | PM.PN ---
Subjective Subjective: No acute events overnight. Patient has remained hemodynamically stable and afebrile. Today morning seen working with physical therapy. Patient states she is at her baseline respiratory status. During the afternoon while she was resting in chair she had an episode of rapid ventricular response with a flutter with heart rate going up to 130s. IV Cardizem was prescribed could not be given as patient had lost her IV. By the time IV Cardizem could be given patient's heart rate did settle down by itself in 80s. She was given an extra dose of oral Cardizem. Blood work today shows a stable hemoglobin of 8.7, CMP showing no electrolyte abnormalities and a normal creatinine. Vitals/I&O/Wt Last Vital Signs Temp 98.0 F 06/16/23 11:34 Pulse 97 06/16/23 11:34 Resp 14 06/16/23 11:34 BP 161/70 06/16/23 11:34 Pulse Ox 92 06/16/23 11:34 O2 Del Method Nasal Cannula 06/16/23 11:34 O2 Flow Rate 3 06/16/23 11:00 FiO2 32 06/16/23 04:30 06/15/23 06/16/23 06/16/23 22:59 06:59 14:59 Intake Total 240 / 240 240 / 480 480 / 480 Output Total 600 / 600 Balance 240 / 240 240 / 480 -120 / -120 Physical Exam Narrative: Elderly thin frail white female appearing chronically ill with increased respirations but at her baseline. She appears much older than her stated age of 73. Head: Traumatic appearing with the right eye laceration as well as swelling over her right maxillary area. Lungs: Severely diminished breath sounds with poor expiratory phase no wheezes rales or rhonchi but very poor aeration Abdomen: Soft nontender nondistended positive bowel sounds no hepatosplenomegaly Extremities no clubbing cyanosis or edema Skin multiple bruises and skin tears on the right arm status post fall. She also has a laceration on the right eyelid that has been glued Data 06/16/23 06:00 06/15/23 05:42 A&P Assessment and plan (1) Femur fracture, right: Status post nail to right hip. Day 4. Pain control with [place] 5 mg 1 tablet every 6 hour as needed Continue with physical therapy. Continue with aspirin 81 mg daily. Restart home dose of Eliquis 2.5 mg twice daily for atrial fibrillation today. We will continue to monitor hemoglobin daily for now. (2) Postoperative anemia due to acute blood loss: Post 1 unit of blood transfusion. Hemoglobin appropriately up to more than 8. Monitor hemoglobin daily. Target hemoglobin more than 7. Appreciate recent TIBC, vitamin B12 and folate levels. Monitor hemoglobin daily. Protonix twice daily. Stool for occult blood to be checked. (3) Paroxysmal A-fib: Rapid ventricular response has resolved. With mild rapid ventricular response. Continue with home dose of metoprolol 12.5 mg twice daily, Cardizem 60 mg twice daily. Patient had 1 episode of RVR later in the day today. Will increase dose of Cardizem to 60 mg 3 times daily, continue with metoprolol 12.5 mg twice daily. If needed will start on Cardizem drip. Monitor vitals. Will restart Eliquis at home dose of 2.5 mg twice daily today. Monitor hemoglobin. Last echocardiogram showed a normal EF with grade 1 diastolic dysfunction. IV Lasix 20 mg one-time PRBC transfusion. 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 Baseline at 3 L of oxygen supplementation with BiPAP nightly. Aggressive pulmonary toilet. Continue with Pulmicort twice daily, DuoNebs every 4 hours. Continue with 40 mg of IV Solu-Medrol today. Will wean down to oral prednisone 40 mg from tomorrow. Recent discharge from hospital for COPD exacerbation. (5) Laceration of face: This was glued in the emergency room (6) Fracture of facial bone due to fall: Of right zygomatic maxillary fracture. Stable. (7) Right wrist pain: Plan for wrist splints. Plan CODE STATUS: Confirmed with the patient. She continues to remain DNR/DNI. Daughter is the DPOA Regular diet Protonix for PUD prophylaxis Discharge plan: Plan to discharge to SNF for further rehabitation given second admission in a short while. Patient is agreeable. Patient cannot go to SNF as she is on NIV in setting of severe COPD. Can plan to transition discharge to acute rehab versus swing bed. Patient is agreeable. Case management alerted. Case management continues to have difficulty in finding an acute rehab versus swing bed for the patient as she is on NIV ventilation. Discussed with patient's daughter about possible transition to assisted living as patient would do better in the long-term placement for safety given her fragile health, end-stage COPD. Daughter is agreeable. Case management alerted. Not sure about the options so far given NIV requirement. We will discuss further with patient once plans more certain. Attestations Medical Necessity Statement*: Requires further hospitalization for management of postoperative care in setting of ORIF in a patient with end-stage COPD on NIV ventilation while safe discharge planning is sought. Diagnoses Femur fracture, right S72.91XA Postoperative anemia due to acute blood loss D62 Paroxysmal A-fib I48.0 COPD (chronic obstructive pulmonary disease) J44.9 Laceration of face S01.81XA Fracture of facial bone due to fall S02.92XA; W19.XXXA Right wrist pain M25.531
[2023-06-16] MEDS: apixaban 5 mg Tablet 2.5 MG PO (20:42)
[2023-06-17] VITALS (10 sets, daily range): BP systolic 132–157; BP diastolic 64–76; PULSE 78–105; RESP 15–21; TEMP 36.6–37.2; O2SAT 90–96
[2023-06-17] MEDS: HYDROcodone-acetaminophen 5-325 mg Tablet 1 TAB PO ×2 (01:10→08:07)
[2023-06-17] MEDS: ipratropium-albuterol 3 mL Neb INHALATION ×5 (04:00→20:35)
[2023-06-17 06:14] LABS: Basophils % 0.1 %; Eosinophils % 0.1 %; Hematocrit 29.4 % (36-47); Lymphocytes # 1.3 10^3/uL (0.8-4.8); Lymphocytes % 11.2 %; Mean Corpuscular HGB Conc 29.3 g/dL (30-55); Mean Corpuscular Hemoglobin 27.3 pg (27-33); Mean Corpuscular Volume 93.3 fl (85-98); Mean Platelet Volume 9.5 fL (7.4-10.4); Monocytes # 1.4 10^3/uL (0.2-0.9); Monocytes % 12.1 %; Neutrophils # 9.03 10^3/uL (1.8-7.7); Nucleated Red Blood Cells % 0 %; Platelet Count 226 10^3/cmm (157-399); Red Blood Count 3.15 10^6/uL (3.85-5.65); White Blood Count 11.88 10^3/uL (3.29-11.43)
[2023-06-17] MEDS: dilTIAZem 60 mg Tablet PO ×3 (07:56→20:53)
[2023-06-17] MEDS: doxycycline 100 mg Tablet PO ×2 (07:56→17:04)
[2023-06-17] MEDS: metoprolol tartrate 25 mg Tablet 12.5 MG PO ×2 (07:57→17:04)
[2023-06-17] MEDS: aspirin 81 mg EC Tablet PO (07:57)
[2023-06-17] MEDS: apixaban 5 mg Tablet 2.5 MG PO ×2 (07:57→20:53)
[2023-06-17] MEDS: methylPREDNISolone sod succ 40 mg/mL INJ IVP (07:57)
[2023-06-17] MEDS: cyanocobalamin 1,000 mcg Tablet 500 MCG PO (07:57)
[2023-06-17] MEDS: docusate sodium 100 mg Capsule PO ×2 (07:57→17:04)
[2023-06-17] MEDS: pantoprazole DR 40 mg Tablet PO ×2 (07:58→17:04)
[2023-06-17] MEDS: budesonide 0.5 mg/2 mL Neb INHALATION ×2 (08:07→20:35)
[2023-06-17 10:24] LABS: Alanine Aminotransferase 11 U/L (0-33); Albumin Level 3.2 g/dL (3.5-5.2); Alkaline Phosphatase 42 U/L (35-105); Anion Gap 9.9 (5-19); Aspartate Amino Transferase 15 U/L (0-32); Blood Urea Nitrogen 14 mg/dL (8-23); Calcium 9.2 mg/dL (8.5-10.5); Carbon Dioxide 40 mmol/L (22-29); Chloride 96 mmol/L (98-107); Globulin 1.8 g/dL (1.3-4.6); Glucose 78 mg/dL (65-115); Osmolality Calculated 293 mOsm/kg (285-295); Potassium 3.9 mmol/L (3.5-5.1); Sodium 142 mmol/L (136-145); Total Bilirubin 0.5 mg/dL (0.15-1.2)
--- NOTE | 2023-06-17 15:04 | P.PN_ITS ---
Subjective Subjective: No acute events overnight. Patient denies any nausea, vomiting, headache. Seen with daughter at bedside. Patient complaining of extreme hip pain during physical therapy. We discussed that she is on pain medications which unfortunately cannot be increased any further because of concerns for decline in her respiratory status. Blood work appreciated for a stable CBC, leukocytosis, CMP showing stable electrolytes and creatinine. Vitals/I&O/Wt Last Vital Signs Temp 98.0 F 06/17/23 11:21 Pulse 96 06/17/23 11:35 Resp 16 06/17/23 11:35 BP 149/64 06/17/23 11:21 Pulse Ox 91 06/17/23 11:35 O2 Del Method Nasal Cannula 06/17/23 11:35 O2 Flow Rate 3 06/17/23 11:35 FiO2 32 06/17/23 04:00 06/17/23 06/17/23 06/17/23 06:59 14:59 22:59 Output Total 1500 / 2100 400 / 400 Balance -1500 / -1380 -400 / -400 Physical Exam Narrative: Elderly thin frail white female appearing chronically ill with increased respirations but at her baseline. She appears much older than her stated age of 73. Head: Traumatic appearing with the right eye laceration as well as swelling over her right maxillary area. Lungs: Severely diminished breath sounds with poor expiratory phase no wheezes rales or rhonchi but very poor aeration Abdomen: Soft nontender nondistended positive bowel sounds no hepatosplenomegaly Extremities no clubbing cyanosis or edema Skin multiple bruises and skin tears on the right arm status post fall. She also has a laceration on the right eyelid that has been glued Data 06/17/23 05:24 06/17/23 05:24 A&P Assessment and plan (1) Femur fracture, right: Status post nail to right hip. Day 5. Pain control with [place] 5 mg 1 tablet every 6 hour as needed Continue with physical therapy. Continue with Eliquis for both anticoagulation in setting of atrial fibrillation which will also help with anticoagulation postoperatively. Hemoglobin so far stable. (2) Postoperative anemia due to acute blood loss: Post 1 unit of blood transfusion. Hemoglobin appropriately up to more than 8. Monitor hemoglobin daily. Target hemoglobin more than 7. Appreciate recent TIBC, vitamin B12 and folate levels. Monitor hemoglobin daily. Protonix twice daily. Stool for occult blood to be checked. Start on oral iron supplementation. (3) Paroxysmal A-fib: Rapid ventricular response has resolved. With mild rapid ventricular response. Continue with home dose of metoprolol 12.5 mg twice daily, Cardizem 60 mg twice daily. Patient had 1 episode of RVR later in the day today. Continue with increased frequency of Cardizem 60 mg 3 times daily, home dose of metoprolol 12.5 mg twice daily. Patient continues to have occasional episodes of RVR. We will plan to load with digoxin with overall 500 mcg given body weight. Plan for 250 mcg start followed by 125 mg in 6 and every 6 hours for 2 doses. Check digoxin levels in AM. Continue with home dose of Eliquis. Monitor hemoglobin. Last echocardiogram showed a normal EF with grade 1 diastolic dysfunction. IV Lasix 20 mg one-time PRBC transfusion. 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 Baseline at 3 L of oxygen supplementation with BiPAP nightly. Aggressive pulmonary toilet. Continue with Pulmicort twice daily, DuoNebs every 4 hours. Switch to oral prednisone 40 mg daily. We will plan for slow taper. Recent discharge from hospital for COPD exacerbation. (5) Laceration of face: This was glued in the emergency room (6) Fracture of facial bone due to fall: Of right zygomatic maxillary fracture. Stable. (7) Right wrist pain: Plan for wrist splints. Plan CODE STATUS: Confirmed with the patient. She continues to remain DNR/DNI. Daughter is the DPOA Regular diet Protonix for PUD prophylaxis Discharge plan: Plan to discharge to SNF for further rehabitation given second admission in a short while. Patient is agreeable. Patient cannot go to SNF as she is on NIV in setting of severe COPD. Can plan to transition discharge to acute rehab versus swing bed. Patient is agreeable. Case management alerted. Case management continues to have difficulty in finding an acute rehab versus swing bed for the patient as she is on NIV ventilation. Discussed with patient's daughter about possible transition to assisted living as patient would do better in the long-term placement for safety given her fragile health, end- stage COPD. Daughter is agreeable. Case management alerted. Not sure about the options so far given NIV requirement. We will discuss further with patient once plans more certain. 06/17: Again discussed with patient and patient's daughter at bedside. We discussed unfortunately given her respiratory status patient is at a point where she cannot live by herself and cannot take care of her ADLs anymore. We are looking for a long-term placement which is being difficult right now because patient is on NIV/AVAPS mode on BiPAP. Discussed if we are not able to get any placement and only option left would most likely be discharged with hospice. Patient and patient's daughter verbalized understanding. Attestations Medical Necessity Statement*: Requires further hospitalization for postoperative care in setting of ORIF, end- stage COPD on AVAPS, A-fib with RVR while safe discharge planning is sought. Diagnoses Femur fracture, right S72.91XA Postoperative anemia due to acute blood loss D62 Paroxysmal A-fib I48.0 COPD (chronic obstructive pulmonary disease) J44.9 Laceration of face S01.81XA Fracture of facial bone due to fall S02.92XA; W19.XXXA Right wrist pain M25.531
[2023-06-17] MEDS: digoxin 250 mcg/ml INJ 2 mL 125 MCG IVP ×2 (16:56→21:32)
[2023-06-17] MEDS: ALPRAZolam 0.5 mg Tablet PO (21:01)
[2023-06-18] VITALS (16 sets, daily range): BP systolic 130–145; BP diastolic 54–71; PULSE 72–94; RESP 14–20; TEMP 36.4–36.9; O2SAT 89–98
[2023-06-18] MEDS: ipratropium-albuterol 3 mL Neb INHALATION ×7 (00:07→23:59)
[2023-06-18] MEDS: HYDROcodone-acetaminophen 5-325 mg Tablet 1 TAB PO ×2 (05:03→16:16)
[2023-06-18 05:28] LABS: Basophils % 0.1 %; Hematocrit 31.4 % (36-47); Lymphocytes # 0.6 10^3/uL (0.8-4.8); Lymphocytes % 6.8 %; Mean Corpuscular HGB Conc 30.3 g/dL (30-55); Mean Corpuscular Hemoglobin 28.4 pg (27-33); Mean Corpuscular Volume 93.7 fl (85-98); Mean Platelet Volume 9.7 fL (7.4-10.4); Monocytes # 1.1 10^3/uL (0.2-0.9); Monocytes % 12.3 %; Neutrophils # 7.15 10^3/uL (1.8-7.7); Neutrophils % 80.5 %; Nucleated Red Blood Cells % 0 %; Platelet Count 248 10^3/cmm (157-399); Red Blood Count 3.35 10^6/uL (3.85-5.65); Red Cell Distribution Width 15.7 % (12.1-15.1); White Blood Count 8.88 10^3/uL (3.29-11.43)
[2023-06-18 05:54] LABS: Alanine Aminotransferase 12 U/L (0-33); Albumin Level 3.3 g/dL (3.5-5.2); Alkaline Phosphatase 45 U/L (35-105); Anion Gap 11.8 (5-19); Aspartate Amino Transferase 12 U/L (0-32); Blood Urea Nitrogen 11 mg/dL (8-23); Calcium 9.6 mg/dL (8.5-10.5); Carbon Dioxide 39 mmol/L (22-29); Chloride 97 mmol/L (98-107); Globulin 2.2 g/dL (1.3-4.6); Glucose 109 mg/dL (65-115); Osmolality Calculated 298 mOsm/kg (285-295); Potassium 3.8 mmol/L (3.5-5.1); Sodium 144 mmol/L (136-145); Total Bilirubin 0.5 mg/dL (0.15-1.2); Total Protein 5.5 g/dL (6.6-8.7)
[2023-06-18] MEDS: budesonide 0.5 mg/2 mL Neb INHALATION ×2 (08:05→20:30)
--- NOTE | 2023-06-18 08:51 | PC.SOCIAL ---
IMM Updated Updated pt on IMM. No questions voiced. Provided pt a copy. Initialed, dated, & timed copy in chart.
[2023-06-18] MEDS: doxycycline 100 mg Tablet PO ×2 (10:01→17:48)
[2023-06-18] MEDS: aspirin 81 mg EC Tablet PO (10:01)
[2023-06-18] MEDS: cyanocobalamin 1,000 mcg Tablet 500 MCG PO (10:02)
[2023-06-18] MEDS: apixaban 5 mg Tablet 2.5 MG PO ×2 (10:02→20:56)
[2023-06-18] MEDS: pantoprazole DR 40 mg Tablet PO ×2 (10:02→17:48)
[2023-06-18] MEDS: predniSONE 20 mg Tablet 40 MG PO (10:02)
[2023-06-18] MEDS: docusate sodium 100 mg Capsule PO ×2 (10:03→17:49)
[2023-06-18] MEDS: metoprolol tartrate 25 mg Tablet 12.5 MG PO ×2 (10:03→17:49)
[2023-06-18] MEDS: dilTIAZem 60 mg Tablet PO ×3 (10:09→20:56)
--- NOTE | 2023-06-18 12:57 | P.PN_ITS ---
Subjective Subjective: No acute events overnight. Patient denies any nausea, vomiting, headache. States she is feeling a lot better. At her baseline oxygen supplementation. Seen with daughter at bedside. Patient's heart rate is a lot better controlled. Blood work shows a stable CMP with potassium mild low at 3.8, creatinine 0.2, hemoglobin at 9.5. Vitals/I&O/Wt Last Vital Signs Temp 97.5 F L 06/18/23 11:14 Pulse 72 06/18/23 11:18 Resp 16 06/18/23 11:14 BP 134/54 06/18/23 11:14 Pulse Ox 89 L 06/18/23 11:14 O2 Del Method Nasal Cannula 06/18/23 11:14 O2 Flow Rate 3 06/18/23 11:10 FiO2 32 06/18/23 03:35 06/17/23 06/18/23 06/18/23 22:59 06:59 14:59 Intake Total 240 / 480 720 / 720 Output Total 600 / 1000 900 / 900 Balance -360 / -520 -180 / -180 Physical Exam Narrative: Elderly thin frail white female appearing chronically ill with increased respira tions but at her baseline. She appears much older than her stated age of 73. Head: Traumatic appearing with the right eye laceration as well as swelling over her right maxillary area. Lungs: Severely diminished breath sounds with poor expiratory phase no wheezes rales or rhonchi but very poor aeration Abdomen: Soft nontender nondistended positive bowel sounds no hepatosplenomegaly Extremities no clubbing cyanosis or edema Skin multiple bruises and skin tears on the right arm status post fall. She also has a laceration on the right eyelid that has been glued Data 06/18/23 04:45 06/18/23 04:45 A&P Assessment and plan (1) Femur fracture, right: Status post nail to right hip. Day 6. Pain control with [place] 5 mg 1 tablet every 6 hour as needed Continue with physical therapy. Continue with Eliquis for both anticoagulation in setting of atrial fibrillation which will also help with anticoagulation postoperatively. After reinitiation of Eliquis hemoglobin has remained stable. (2) Postoperative anemia due to acute blood loss: Post 1 unit of blood transfusion. Monitor hemoglobin daily. Target hemoglobin more than 7. Appreciate recent TIBC, vitamin B12 and folate levels. Monitor hemoglobin daily. Protonix twice daily. Stool for occult blood to be checked. Start on oral iron supplementation. (3) Paroxysmal A-fib: Rapid ventricular response has resolved. With mild rapid ventricular response. Continue with home dose of metoprolol 12.5 mg twice daily, Cardizem 60 mg twice daily. Patient had 1 episode of RVR later in the day today. Continue with increased frequency of Cardizem 60 mg 3 times daily, home dose of metoprolol 12.5 mg twice daily. Patient continues to have occasional episodes of RVR. Patient received digoxin load yesterday. Heart rate has been stable after that. Digoxin level appropriate today. Start on 0.125 mcg daily. Continue with home dose of Eliquis. Monitor hemoglobin. Last echocardiogram showed a normal EF with grade 1 diastolic dysfunction. IV Lasix 20 mg one-time PRBC transfusion. 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 Baseline at 3 L of oxygen supplementation with BiPAP nightly. Aggressive pulmonary toilet. Continue with Pulmicort twice daily, DuoNebs every 4 hours. Switch to oral prednisone 40 mg daily. We will plan for slow taper. Recent discharge from hospital for COPD exacerbation. (5) Laceration of face: This was glued in the emergency room (6) Fracture of facial bone due to fall: Of right zygomatic maxillary fracture. Stable. (7) Right wrist pain: Plan for wrist splints. Plan CODE STATUS: Confirmed with the patient. She continues to remain DNR/DNI. Daughter is the DPOA Regular diet Protonix for PUD prophylaxis Discharge plan: Plan to discharge to SNF for further rehabitation given second admission in a short while. Patient is agreeable. Patient cannot go to SNF as she is on NIV in setting of severe COPD. Can plan to transition discharge to acute rehab versus swing bed. Patient is agreeable. Case management alerted. Case management continues to have difficulty in finding an acute rehab versus swing bed for the patient as she is on NIV ventilation. Discussed with patient's daughter about possible transition to assisted living as patient would do better in the long-term placement for safety given her fragile health, end- stage COPD. Daughter is agreeable. Case management alerted. Not sure about the options so far given NIV requirement. We will discuss further with patient once plans more certain. 06/17: Again discussed with patient and patient's daughter at bedside. We discussed unfortunately given her respiratory status patient is at a point where she cannot live by herself and cannot take care of her ADLs anymore. We are looking for a long-term placement which is being difficult right now because patient is on NIV/AVAPS mode on BiPAP. Discussed if we are not able to get any placement a nd only option left would most likely be discharged with hospice. Patient and patient's daughter verbalized understanding. Discharge plan: Plan was to discharge patient to SNF for further rehabilitation which could not be done as patient is on NIV BiPAP ventilation settings which cannot be done at any SNF nearby. Patient is not a candidate for acute rehab or swing bed as she is not able to participate in physical therapy as she should be because of her severe COPD and poor respiratory status. Possible discharge plan to assisted living was also discussed which interested in as it is too far away. We discussed further 2 options of possible discharge home with hospice versus t rial of switching from NIV to acceptable BiPAP setting which might cause patient to have further respiratory distress or COPD exacerbation. Both patient and patient's daughter verbalized understanding and are interested in hospice. Will await hospice company to speak with the patient before making any further plans. Attestations Medical Necessity Statement*: Requires further hospitalization for management of severe COPD, postoperative care post ORIF by safe discharge planning discharge with concerns for possible discharge with hospice Diagnoses Femur fracture, right S72.91XA Postoperative anemia due to acute blood loss D62 Paroxysmal A-fib I48.0 COPD (chronic obstructive pulmonary disease) J44.9 Laceration of face S01.81XA Fracture of facial bone due to fall S02.92XA; W19.XXXA Right wrist pain M25.531
--- NOTE | 2023-06-18 16:33 | PC.OT ---
OT treatment attempted 3x with patient declining each time. Will attempt OT tx tomorrow.
[2023-06-18] MEDS: ALPRAZolam 0.5 mg Tablet PO (20:56)
[2023-06-19] VITALS (10 sets, daily range): BP systolic 114–141; BP diastolic 53–65; PULSE 72–91; RESP 16–19; TEMP 36.7–36.9; O2SAT 91–98
[2023-06-19] MEDS: ipratropium-albuterol 3 mL Neb INHALATION ×3 (03:52→15:57)
[2023-06-19] MEDS: budesonide 0.5 mg/2 mL Neb INHALATION (07:46)
[2023-06-19] MEDS: digoxin 125 mcg Tablet PO (09:57)
[2023-06-19] MEDS: cyanocobalamin 1,000 mcg Tablet 500 MCG PO (09:57)
[2023-06-19] MEDS: apixaban 5 mg Tablet 2.5 MG PO (09:57)
[2023-06-19] MEDS: aspirin 81 mg EC Tablet PO (09:57)
[2023-06-19] MEDS: pantoprazole DR 40 mg Tablet PO (09:58)
[2023-06-19] MEDS: dilTIAZem 60 mg Tablet PO ×2 (09:58→14:30)
[2023-06-19] MEDS: metoprolol tartrate 25 mg Tablet 12.5 MG PO (09:58)
[2023-06-19] MEDS: predniSONE 20 mg Tablet 40 MG PO (09:58)
[2023-06-19] MEDS: docusate sodium 100 mg Capsule PO (09:58)
[2023-06-19] MEDS: doxycycline 100 mg Tablet PO (09:58)
--- NOTE | 2023-06-19 13:17 | PM.DCS ---
Discharge Providers Date of Admission: 06/11/23 17:54 Date of Discharge: June 19, 2023 Attending Provider at Admission: Brock Christensen DO Attending Provider at Discharge: Rishabh Christian MD Consults: Orthopedics: Dr. Barreto Primary Care Provider: Norman Lazo MD Diagnoses at Discharge Discharge Diagnosis (1) Femur fracture, right: Status: Acute (2) Postoperative anemia due to acute blood loss: Status: Acute (3) Paroxysmal A-fib: Status: Acute (4) COPD (chronic obstructive pulmonary disease): Status: Acute (5) Laceration of face: Status: Acute (6) Fracture of facial bone due to fall: Status: Acute (7) Right wrist pain: Status: Acute Reason for Visit Reason for Visit: fall Brief History: History as per HPI: Marie Hull is a 73 year old female discharged from the hospital yesterday for exacerbation of COPD.? She was up walking with her walker and per her sister she went to put her plate away in the kitchen and then she had fallen.? The patient does not recollect bringing her plate to the kitchen.? She fell and hit the right side of her body.? She is has a laceration above her right eye multiple bruises fractures of the facial bones and anterior trochanteric fracture of the right femur. Hospital Course Hospital Course She was admitted to hospital for management of hip fracture. Orthopedic was consulted. She underwent ORIF on 06/12. Postoperatively patient developed postoperative anemia for which she received monitor blood transfusion. Gradually her home dose of anticoagulation with Eliquis was started and her hemoglobin remained stable. Healthcare remain limited because of limited participation with physical therapy given her severely impaired respiratory status. During hospitalization she did have an episode of paroxysmal A-fib with RVR for which she was loaded with digoxin and was continued to be taking 0.125 mcg daily. Safe discharge planning was discussed in detail with patient and patient's daughter/caregiver at bedside. Plan was to discharge patient to SNF for further rehabilitation which could not be done as patient is on NIV BiPAP ventilation settings which cannot be done at any SNF nearby. Patient is not a candidate for acute rehab or swing bed as she is not able to participate in physical therapy as she should be because of her severe COPD and poor respiratory status. Possible discharge plan to assisted living was also discussed which interested in as it is too far away. We discussed further 2 options of possible discharge home with hospice versus trial of switching from NIV to acceptable BiPAP setting which might cause patient to have further respiratory distress or COPD exacerbation. Both patient and patient's daughter verbalized understanding and are interested in hospice. She has been discharged hemodynamically stable condition back home with hospice for further care. Physical Exam Narrative: Elderly thin frail white female appearing chronically ill with increased respirations but at her baseline. She appears much older than her stated age of 73. Head: Traumatic appearing with the right eye laceration as well as swelling over her right maxillary area. Lungs: Severely diminished breath sounds with poor expiratory phase no wheezes rales or rhonchi but very poor aeration Abdomen: Soft nontender nondistended positive bowel sounds no hepatosplenomegaly Extremities no clubbing cyanosis or edema Skin multiple bruises and skin tears on the right arm status post fall. She also has a laceration on the right eyelid that has been glued Discharge Data Studies Completed and Pending Completed Studies During Hospitalization Category Date Time Status CT cervical spin wo con* [id number] Stat Cat Scan 06/11/23 16:[address] head wo con* [id number] Stat Cat Scan 06/11/23 16:[address] pelvis wo con [id number] Stat Cat Scan 06/11/23 17:19 Completed XR chest 1V portable [id number] Stat Exams 06/11/23 17:09 Completed XR hip RT 2-3V wo/w pel* [id number] Routine Exams 06/12/23 Completed XR hip RT 2-3V wo/w pel* [id number] Stat Exams 06/11/23 16:42 Completed XR wrist RT min 3V* [id number] Stat Exams 06/11/23 16:42 Completed Pending at discharge Category Date Time Status Occult Blood Stool [Immunochemical Fecal OCB] Routine Lab 06/14/23 09:15 Uncollected Radiology Impressions Head CT 06/11/23 16:42 IMPRESSION: 1. No acute abnormality of the brain. 2. Mildly comminuted and displaced fracture of multiple right facial bones, the constellation of findings suggests a right zygomaticomaxillary fracture. CT scan of the facial bones is recommended for further evaluation. 3. Mild contusion of the intraorbital fat in the posterior/inferior right orbit. 4. Large air-fluid level in the right maxillary sinus and small air-fluid levels in the ethmoid and sphenoid sinuses, likely representing hemorrhage from trauma. 5. Mild contusion of the right cheek. 6. Small amount of fluid in the right and left mastoid air cells. 7. Incidental/nonacute findings are listed in the report. Wrist X-Ray 06/11/23 16:42 IMPRESSION: Probable nonacute findings. Cervical Spine CT 06/11/23 16:52 IMPRESSION: 1. There is a mildly comminuted and displaced fracture of the posterior/lateral wall of the visualized right maxillary sinus. CT scan of the facial bones is recommended for further evaluation. 2. Large air-fluid level in the visualized right maxillary sinus and small air-fluid levels in the visualized sphenoid sinuses, possibly due to hemorrhage. 3. No acute fracture of the cervical spine. 4. Multilevel degenerative changes of varying severity in the visualized spine. 5. Small amount of fluid in the right and left mastoid air cells. 6. Incidental/nonacute findings are listed in the report. Chest X-Ray 06/11/23 17:09 IMPRESSION: Stable chest x-ray. No acute findings. Pelvis CT 06/11/23 17:19 IMPRESSION: Intertrochanteric fracture proximal right femur. Laboratory Results WBC 8.88 10^3/uL (3.29-11.43) 06/18/23 04:45 RBC 3.35 10^6/uL (3.85-5.65) L 06/18/23 04:45 Hgb 9.50 g/dL (11.27-16.99) L 06/18/23 04:45 Hct 31.4 % (36-47) L 06/18/23 04:45 MCV 93.7 fl (85-98) 06/18/23 04:45 MCH 28.4 pg (27-33) 06/18/23 04:45 MCHC 30.3 g/dL (30-55) 06/18/23 04:45 RDW 15.7 % (12.1-15.1) H 06/18/23 04:45 Plt Count 248 10^3/cmm (157-399) 06/18/23 04:45 MPV 9.7 fL (7.4-10.4) 06/18/23 04:45 Neut % (Auto) 80.5 % 06/18/23 04:45 Lymph % (Auto) 6.8 % 06/18/23 04:45 [place] % (Auto) 12.3 % 06/18/23 04:45 Eos % (Auto) 0.0 % 06/18/23 04:45 Baso % (Auto) 0.1 % 06/18/23 04:45 Neut # (Auto) 7.15 10^3/uL (1.8-7.7) 06/18/23 04:45 Lymph # (Auto) 0.6 10^3/uL (0.8-4.8) L 06/18/23 04:45 [place] # (Auto) 1.1 10^3/uL (0.2-0.9) H 06/18/23 04:45 Eos # (Auto) 0.0 10^3/uL (0.0-0.8) 06/18/23 04:45 Baso # (Auto) 0.0 10^3/uL (0.0-0.1) 06/18/23 04:45 Nucleated RBC % (auto) 0 % 06/18/23 04:45 Nucleated RBCs # 0.0 /100WBC 06/18/23 04:45 PT 13.00 SECONDS (12.1-14.9) 06/12/23 05:06 INR 0.95 (0.8-1.2) 06/12/23 05:06 APTT 24.1 SECONDS (23.9-36.7) 06/12/23 05:06 Specimen Type Arterial 06/11/23 17:08 Sample Site Radial, left 06/11/23 17:08 ABG pH 7.35 (7.35-7.45) 06/11/23 17:08 ABG pCO2 81.0 mmHg (35-45) H* 06/11/23 17:08 ABG pO2 62.0 mmHg (80.0-100.0) L 06/11/23 17:08 ABG HCO3 44.8 mmol/L (22-26) H 06/11/23 17:08 ABG Base Excess 16.6 mmol/L (-2.0-2.0) H 06/11/23 17:08 Nikolas Test Pos 06/11/23 17:08 Hematocrit 26.9 % (37-47) L 06/11/23 17:08 O2 Delivery Device Nc 06/11/23 17:08 O2 Liters/Min 4.0 % 06/11/23 17:08 FiO2 36.0 % 06/11/23 17:08 Real Estate Office [employer] ID Cak 06/11/23 17:08 Sodium 144 mmol/L (136-145) 06/18/23 04:45 Potassium 3.8 mmol/L (3.5-5.1) 06/18/23 04:45 Chloride 97 mmol/L (98-107) L 06/18/23 04:45 Carbon Dioxide 39 mmol/L (22-29) H 06/18/23 04:45 Anion Gap 11.8 (5-19) 06/18/23 04:45 BUN 11 mg/dL (8-23) 06/18/23 04:45 Creatinine 0.2 mg/dL (0.5-0.9) L 06/18/23 04:45 GFR Calculation Not Reportable 06/18/23 04:45 Glucose 109 mg/dL (65-115) 06/18/23 04:45 POC Glucose 137 mg/dL (70-110) H 06/12/23 17:04 Calculated Osmolality 298 mOsm/kg (285-295) H 06/18/23 04:45 Calcium 9.6 mg/dL (8.5-10.5) 06/18/23 04:45 Total Bilirubin 0.5 mg/dL (0.15-1.2) 06/18/23 04:45 AST 12 U/L (0-32) 06/18/23 04:45 ALT 12 U/L (0-33) 06/18/23 04:45 Alkaline Phosphatase 45 U/L (35-105) 06/18/23 04:45 Creatine Kinase 29 U/L (26-192) 06/11/23 16:51 Total Protein 5.5 g/dL (6.6-8.7) L 06/18/23 04:45 Albumin 3.3 g/dL (3.5-5.2) L 06/18/23 04:45 Globulin 2.2 g/dL (1.3-4.6) 06/18/23 04:45 Vitamin B12 307 pg/mL (232-1245) 06/14/23 05:42 Digoxin 1.0 ng/mL (0.6-1.2) 06/18/23 04:45 Blood Type A Positive 06/14/23 06:18 Rho(D) Type Positive 06/14/23 06:18 Antibody Screen Negative 06/14/23 06:18 Crossmatch See Detail 06/14/23 06:18 Vitals Last Vital Signs Temp 98.1 F 06/19/23 11:20 Pulse 82 06/19/23 11:20 Resp 18 06/19/23 11:20 BP 114/65 06/19/23 11:20 Pulse Ox 98 06/19/23 11:20 O2 Del Method Nasal Cannula 06/19/23 11:20 O2 Flow Rate 3 06/19/23 08:00 FiO2 32 06/19/23 03:54 Discharge Plan Discharge Patient Disposition: Hospice - Home Condition: Stable Prescriptions: New Vitamin B-12 1,000 mcg Tablet 500 mcg PO DAILY Qty: 30 0RF digoxin 125 mcg (0.125 mg) Tablet 125 mcg PO DAILY Qty: 30 0RF prednisone 10 mg tablet See Taper PO DIRECTED Qty: 42 0RF Taper: predniSONE 60-10 60 mg Daily for 2 Days and 0 Hour 50 mg Daily for 2 Days and 0 Hour 40 mg Daily for 2 Days and 0 Hour 30 mg Daily for 2 Days and 0 Hour 20 mg Daily for 2 Days and 0 Hour 10 mg Daily for 2 Days and 0 Hour Rx Instructions: see taper instructions Continued azithromycin 250 mg tablet 250 mg PO .3 times weekly Qty: 36 3RF Rx Instructions: Take 1 tab (250mg) on Mondays, Wednesdays, and Fridays (DME) oxygen small bottle See Rx Instructions .Route .MEDSUPPLY Qty: 1 0RF Rx Instructions: switch condensor to small tank budesonide 0.5 mg/2 mL suspension for nebulization 0.5 mg inhalation BID Qty: 60 6RF formoterol fumarate [Perforomist] 20 mcg/2 mL solution for nebulization 2 ml inhalation BID Qty: 120 6RF albuterol sulfate [Ventolin HFA] 90 mcg/actuation HFA aerosol inhaler 1 puff INHALATION TID PRN (Reason: Shortness Of Breath) Qty: 18 3RF Yupelri 175 mcg/3 mL solution for nebulization 175 mcg inhalation DAILY Qty: 90 6RF Rx Instructions: Approved 04/02/23-03/31/24 cholecalciferol (vitamin D3) [Vitamin D3] 25 mcg (1,000 unit) Tablet 1,000 unit PO QAM ipratropium-albuterol 0.5 mg-3 mg(2.5 mg base)/3 mL solution for nebulization 3 ml INHALATION TID PRN (Reason: Shortness Of Breath) roflumilast 500 mcg Tablet 500 mcg PO DAILY Qty: 90 0RF calcium carbonate [Calcium 600] 600 mg calcium (1,500 mg) Tablet 600 mg PO QAM metoprolol tartrate 25 mg tablet 12.5 mg PO BID 30 Days Qty: 30 0RF Lum[place] 0.01 % drops 1 drp ophthalmic (eye) BEDTIME Rx Instructions: both eyes diltiazem HCl 60 mg tablet 60 mg PO BID Eliquis 2.5 mg tablet 2.5 mg PO BID doxycycline monohydrate 100 mg Tablet 100 mg PO BID 5 Days Qty: 10 0RF Rx Instructions: for 5 days (rx filled 06/10/23) tramadol 50 mg Tablet 25 mg PO Q12H PRN (Reason: Moderate Pain) 7 Days Qty: 7 0RF alprazolam 0.5 mg Tablet 0.5 mg PO QID PRN (Reason: Anxiety) 7 Days Qty: 28 0RF prednisone 10 mg tablet See Rx Instructions .ROUTE .COMPLEX Qty: 53 0RF Rx Instructions: 4 tabs for 5 days, 3 tabs for 5 days, 2 tabs for 5 days, 1 tab for 5 days, 0.5 tabs for 5 days Lidocaine Pain Relief 4 % Adhesive Patch,Medicated 1 patch TOPICAL DAILY Rx Instructions: leave on most painful area up to 12 hours then off for 12 hours potassium chloride 20 mEq tablet,ER particles/crystals 20 meq PO .ON WED,WED,FRI pantoprazole 40 mg tablet,delayed release (DR/EC) 40 mg PO DAILY furosemide 20 mg tablet 20 mg PO .ON MON,WED,FRI Xyzal 5 mg Tablet 5 mg PO DAILY Discharge Orders: Discharge Order (Routine); Ordered 06/19/23 Ordered By: Rishabh Christian Referrals: [facility] [Outside] Discharge Diet: Advance as tolerated Discharge Activity: Limit activity as instructed Patient Instructions: Digoxin (By mouth), Prednisone (By mouth), Hospice Care (GEN), Opioid Safety Activity Restrictions/Additional Instructions: You are being discharged from the hospital today during which time you have been under the care of Dr Barreto. You had a Right hip fracture. You were treated for this injury with IM nail. You may resume you normal diet (including any special diets as directed by your primary doctor) as well as your home medications. You should follow up with you primary doctor if you have any questions regarding medication you took prior to your stay in the hospital. You may take your pain medication as prescribed. After the first few days, take your pain medication as needed. Do not drive or drink alcohol while taking your pain medication. Your injury may increase your risk of developing a blood clot,or DVT, in your arm or leg. This could potentially dislodge and travel to your lungs and become a life threatening condition called apulmonary embolus,or PE. You have been prescribed eliquis to be taken to prevent this. Frequent movement of the legs will also help prevent this from occurring. If you develop any new or worsening cough, chestpain, bloody sputum or shortness of breath, call 911 or go to the EmergencyRoom. Always keep your surgical incision/dressing clean and dry. If you experience increasing pain at your incision site, redness, swelling, increasing discharge, foul odors, or fevers (greater than 100.4), night sweats or chills you should call the office at the above number. If you feel this is an emergency you should be evaluated in the Emergency Department of a nearby hospital. Orthopedic Patient Instructions Summary: Weight Bearing: WBAT Activity: as tolerated. Diet: regular. Wound Care: Keep dressing clean and dry. Change as needed Anticoagulation: Eliquis Pain Medication: Take only as needed. Ice, rest and elevation will be of great benefit. Please plan to follow-up sumi Barreto in 2 weeks. You will need to call the clinic [phone] to schedule. Do not hesitate to call the office with any questions or concerns. Discharge Attestations Time Spent in Discharge Care*: greater than 30 min Specific Discharge Activities: educating patient, educating and/or supporting family/caregiver, discussing with pcp/other providers, discussing with caser/social workers/dc planners, documenting/other paperwork and evaluating patient/reviewing data Status at Discharge: Cognitive status at discharge: cognitively intact, Behavioral status at discharge: cooperative, Functional status at discharge: uses cane/walker, Overall status at discharge: patient is progressing back to baseline Quality Metrics Clinical Quality Measures [ No reported AMI, CVA or VTE this stay] Coding Level of Care Code 32791 Total time (in minutes) for Discharge: 50 Diagnoses Femur fracture, right S72.91XA Postoperative anemia due to acute blood loss D62 Paroxysmal A-fib I48.0 COPD (chronic obstructive pulmonary disease) J44.9 Laceration of face S01.81XA Fracture of facial bone due to fall S02.92XA; W19.XXXA Right wrist pain M25.531
[2023-06-19] MEDS: HYDROcodone-acetaminophen 5-325 mg Tablet 1 TAB PO (14:55)
--- NOTE | 2023-06-19 16:45 | PC.NURSE ---
Discharge Note Patient discharged to home via private vehicle accompanied by daughter in law. Discharge instructions reviewed with patient and/or manufacturer representative. Mobile pharmacy medications and/or prescriptions provided. Belongings/home medications returned.
== END 2023-06-19 16:46 | disposition hospice, home (50) | DRG 481 ==
LOC: ER 17:54 → MEDSURG 18:53
PROVIDERS: Nurse Practitioner Family; Orthopaedic Surgery; Physician Assistant; Admitting Provider Internal Medicine; Emergency Provider Family Medicine; PCP Family Medicine; Visit Provider Student in an Organized Health Care Education/Training Program
PROC: (CPT 27245; principal; 2023-06-12 10:00)
DX: S72.141A Displaced intertrochanteric fracture of right femur, initial encounter for closed fracture (principal); D62 Acute posthemorrhagic anemia; S02.40EA Zygomatic fracture, right side, initial encounter for closed fracture; S02.31XA Fracture of orbital floor, right side, initial encounter for closed fracture; S02.40CA Maxillary fracture, right side, initial encounter for closed fracture; I50.30 Unspecified diastolic (congestive) heart failure; S01.111A Laceration without foreign body of right eyelid and periocular area, initial encounter; S60.211A Contusion of right wrist, initial encounter; W18.39XA Other fall on same level, initial encounter; Z91.81 History of falling; Y93.9 Activity, unspecified; Y92.010 Kitchen of single-family (private) house as the place of occurrence of the external cause; J44.9 Chronic obstructive pulmonary disease, unspecified; M81.0 Age-related osteoporosis without current pathological fracture; I25.10 Atherosclerotic heart disease of native coronary artery without angina pectoris; I48.0 Paroxysmal atrial fibrillation; Z79.01 Long term (current) use of anticoagulants; Z66 Do not resuscitate; Z87.891 Personal history of nicotine dependence; Z99.81 Dependence on supplemental oxygen
CPT/HCPCS: 36415; 36416; 36430; 36600; 70450; 71045; 72125; 72192; 73110; 73502; 76000; 80048; 80053; 80162; 82550; 82607; 82803; 82962; 85014; 85018; 85025; 85610; 85730; 86850; 86900; 86920; 93005; 94640; 94660; 96361; 96372; 96374; 97110; 97116; 97163; 97165; 97530; 97535; 99285; C1713; J0690; J1160; J1650; J1885; J1940; J2270; J2405; J2704; J2920; J3010; J3420; J3490; J7030; J7512; J7626; J7799; L3908; P9016